=== PATIENT | male | born 1950 | race Caucasian/White ===

== ENCOUNTER 2022-09-24 07:34 | Observation (INO) | payer MEDICARE, MEDICAID, SELFPAY ==
[2022-09-24] VITALS (15 sets, daily range): BP systolic 106–182; BP diastolic 49–93; PULSE 65–76; RESP 16–20; TEMP 36.3–36.8; O2SAT 92–100; BMI 30.4; BMI 31.9; BMI 31.4
--- NOTE | 2022-09-24 07:30 | ECG_ITS ---
APPROVED REPORT Exam: Resting ECG HR:83 bpm ECG Measurements Heart Rate 83 AXES WV 151 P 45 QRSd 99 QRS 19 QT 338 T 55 QTc 377 Conclusion SINUS RHYTHM LOW QRS VOLTAGE IN PRECORDIAL LEADS [QRS DEFLECTION < 1.0 mV IN CHEST LEADS] NONSPECIFIC T-WAVE ABNORMALITY BORDERLINE ECG UNCONFIRMED REPORT Electronically signed by : El Ramirez MD 09/25/2022 03:04:14
--- NOTE | 2022-09-24 07:38 | XR_ITS ---
FINAL REPORT CLINICAL HISTORY: CHEST PAIN FINDINGS: A portable view of the chest is obtained. Cardiac and mediastinal silhouettes are normal. The lung volumes are low. There are linear opacities at both lung bases which is likely atelectasis. There is no pleural effusion or pneumothorax. IMPRESSION: Bibasilar linear opacities is likely atelectasis. Reviewed, Interpreted and Dictated by Amrita Pinto MD Transcribed by Talia Sandy Authenticated and [facility]
[2022-09-24 07:46] LABS: Basophils # 0.7 K/mm3 (0-0.2); Basophils % 3.4 % (0.1-2.0); Eosinophils # 0.5 K/mm3 (0.0-0.4); Eosinophils % 2.6 % (0.1-12.0); Hematocrit 46.6 % (42.0-52.0); Hemoglobin 15.2 g/dL (14.1-18.0); Lymphocytes # 2.3 K/mm3 (0.7-4.5); Lymphocytes % 10.7 % (10-50); Mean Corpuscular HGB Conc 32.7 g/dL (31.8-35.4); Mean Corpuscular Hemoglobin 27.9 pg (27.0-31.2); Mean Corpuscular Volume 85.3 fl (80-94); Mean Platelet Volume 12.1 fl (7.4-10.4); Monocytes # 0.8 K/mm3 (0.1-1.0); Monocytes % 3.9 % (1.7-9.3); Neutrophils # 17.4 K/mm3 (1.8-7.8); Neutrophils % 82.8 % (37.0-80.0); Platelet Count 112 K/mm3 (142-424); Red Blood Count 5.46 M/mm3 (4.60-6.20); Red Cell Distribution Width 18.1 % (11.5-17.5)
[2022-09-24 07:51] LABS: MANUAL DIFFERENTIAL MANUAL DIFFERENTIAL (MANUAL DIFF)
[2022-09-24 07:52] LABS: Anion Gap 11.3 mEq/L (5-15); Blood Urea Nitrogen 27 mg/dl (9-20); Calcium 8.6 mg/dl (8.4-10.2); Carbon Dioxide 29 mmol/L (22.0-30.0); Chloride 100 mmol/L (98-107); Creatinine Clearance Estimated 76 mL/min (50-200); Estimated Glomerular Filt Rate 60 ml/min (>60); GFR (African American) 72 ML/MIN (>60); Glucose 111 mg/dl (74-100); Potassium 4.3 mmoL/L (3.5-5.1); Sodium 136 mmol/L (136-145)
[2022-09-24 08:06] LABS: Lymphocytes % 17 % (10-50); Monocytes % 10 % (2-9); Neutrophils % 73 % (42-76); Platelet Estimate Slight Decrease; RBC Morphology Normal; Total Cells Counted 100
[2022-09-24 08:11] LABS: Troponin I < 0.01 ng/ml (0.00-0.034)
--- NOTE | 2022-09-24 08:18 | CT_ITS ---
FINAL REPORT TECHNIQUE: Postcontrast axial images through the abdomen and pelvis were performed. This study was performed with techniques to keep radiation doses as low as reasonably achievable, (ALARA). Individualized dose reduction techniques using automated exposure control or adjustment of mA and/or kV according to the patient's size were employed. CLINICAL HISTORY: LUQ abdominal pain FINDINGS: Abdomen: Ground-glass opacities in the lung bases are nonspecific. Mild edema cannot be excluded. The liver has a slightly nodular contour. Cirrhosis cannot be excluded. The gallbladder is present. The spleen is very large measuring 29 cm in axial dimensions and 27 cm in long axis. There are prominent venous collaterals surrounding the spleen. The portal vein is patent. There is a right adrenal nodule measuring 17 mm. The left adrenal gland is unremarkable. The adrenals are normal. The pancreas is unremarkable. There is a lower pole right renal cyst. The left kidney is unremarkable. The aorta is normal in caliber. No free fluid or adenopathy is identified. There is wall thickening of the hepatic flexure that may be due to incomplete distension. Mass is felt less likely. There is diverticulosis without diverticulitis. Pelvis: The appendix is normal. The urinary bladder is unremarkable. No free fluid, free air, abscess or adenopathy is identified. There is increased density in the bones diffusely but worse in the pelvis and proximal femurs. Malignancy cannot be excluded. IMPRESSION: Massive splenomegaly greater than expected for cirrhosis. Lymphoma cannot be excluded. Nodular liver suggesting cirrhosis. Right adrenal nodule, nonspecific. Wall thickening of the hepatic flexure favoring non-distention. Correlate with recent colonoscopy. Diffuse increased density of the bones. Malignancy cannot be excluded. Reviewed, Interpreted and Dictated by Amrita Pinto MD Transcribed by Salo Gill Authenticated and [facility]
[2022-09-24 08:31] LABS: Coronavirus 19, PCR Not Detected (NotDetected); Influenza A, PCR Not Detected (NotDetected); Influenza B, PCR Not Detected (NotDetected)
[2022-09-24 08:32] LABS: Lipase 391 U/L (23-300)
[2022-09-24 08:33] LABS: Alanine Aminotransferase 20 U/L (12-78); Albumin Level 4.6 g/dl (3.5-5.0); Alkaline Phosphatase 105 U/L (38-126); Aspartate Amino Transferase 46 U/L (17-59); Bilirubin,Direct 0.1 mg/dl (0.0-0.4); Bilirubin,Indirect 1.4 mg/dL (0.0-0.9); Bilirubin,Total 1.5 mg/dl (0.2-1.3); Bilirubin,Unconjugated 1.4 mg/dL (0.0-1.1); Total Protein,Serum 7.4 g/dl (6.3-8.2)
[2022-09-24 08:43] LABS: Lactic Acid 1.3 mmol/L (0.7-2.1)
--- NOTE | 2022-09-24 08:43 | PC.NURSE ---
pt returned from radiology.
--- NOTE | 2022-09-24 09:10 | HMH.EDGENADL ---
Discharge Plan Disposition Chief Complaint: Chest Pain Prescriptions Prescriptions: No Action gabapentin 800 mg Tablet 800 mg PO QID Referrals Follow up/Referrals: Provider,MD Zack [Primary Care Provider] - See instructions Clinical Impressions Clinical Impression: Acute pancreatitis Discharge ED Provider: Ehsan Corona General Adult HPI General Chief complaint: Chest Pain Stated complaint: CHEST PAIN Time Seen by Provider: 09/24/22 08:00 Mode of Arrival: Ambulatory Source of Information: Patient Limitations: No Limitations Description of Symptoms (Recalled from ER Triage Doc. by RN): pt reports chest pain for about a week that has been intermittent, reports upper abdominal pain and shortness of breath as well, denies any heart problems, denies cough, denies fever, states the pain is on the left side of his chest and explains it as a sharp shooting pain History of Present Illness HPI narrative: 72-year-old male presents with upper abdomen and chest pain for a few days. He says the pain is dull worse with deep breathing nonradiating. No nausea vomiting diarrhea fevers. No chills. No pain worse with eating. No dysuria or hematuria no bleeding per rectum or vomiting blood. He does not have history of abdominal pain. Related Data Home Medications Medication Instructions Recorded Confirmed gabapentin 800 mg tablet 800 mg PO QID pain 09/24/22 09/24/22 Allergies Allergy/AdvReac Type Severity Reaction Status Date / Time No Known Allergies Allergy Verified 09/24/22 07:37 [facility] Disclaimer: The information contained in this section may have been updated after the patient was seen, as this information can be updated by other users. Medical History (Updated 09/24/22 @ 10:29 by Ehsan Corona MD) History of back pain Social History Smoking Status: Never smoker alcohol intake: former current occupational status: unemployed Travel in the last 8 weeks: Inside the [place] ROS Obtained: Yes All systems reviewed & no additional complaints except as documented Constitutional Constitutional: Denies fatigue Eyes Eyes: Denies dry eyes ENT Ears, Nose, Mouth, and Throat: Denies dizziness Cardiovascular Cardiovascular: Denies dyspnea Respiratory Respiratory: Denies dyspnea Gastrointestinal Gastrointestingal: Denies constipation Genitourinary Male Genitourinary: Denies flank pain Musculoskeletal Musculoskeletal: Denies joint swelling Integumentary/Breasts Skin/Breast: Denies rash Neurologic Neurologic: Denies dizziness Endocrine Endocrine: Denies fatigue Hematologic/Lymphatic Henatologic/Lymphatic: Denies easy bleeding Allergic/Immunologic Allergic/Immunologic: Denies urticaria Physical Exam General General appearance: alert and in no apparent distress Eye Eye exam: Present PERRL and EOMI ENT ENT exam: Present normal exam and normal oropharynx Neck Neck exam: Present normal inspection Chest Chest inspection: Present symmetric chest wall rise Respiratory Respiratory exam: Present normal lung sounds bilaterally; Absent respiratory distress Cardiovascular Cardiovascular exam: Present regular rate and normal rhythm Abdominal Exam Abdominal exam: Present soft and tenderness (Tenderness to left upper and right upper abdomen); Absent distention, guarding, rebound, Davidson's sign or tenderness at McBurney's Point Rectal Exam Rectal exam: Present deferred Back Exam Back exam: Present normal inspection Neurological Exam Neurological exam: Present alert and oriented X3 Psychiatric Psychiatric exam: Present normal affect and normal mood Skin Skin exam: Present warm, dry and intact Lymphatic Lymphatic Findings: no adenopathy Medical Decision Making Medical Records Medical records reviewed: Yes I reviewed the patient's medical records. Valente Inquiry Pt receiving controlled substance: No Valente was queried for this patient: No Vital Signs: 09/24/22 07:36 09/24/22
--- NOTE | 2022-09-24 09:12 | PC.NURSE ---
Rounded on pt. resting in bed. call light within reach. bed in lowest position. no questions or concerns voiced at this time.
--- NOTE | 2022-09-24 09:12 | PC.NURSE ---
pt aware of need for ua.
--- NOTE | 2022-09-24 09:46 | PC.NURSE ---
pt ambulated to bathroom, giving urine sample
--- NOTE | 2022-09-24 09:54 | PC.NURSE ---
URINE COLLECTED AND SENT TO LAB
[2022-09-24 09:57] LABS: Microscopic, Urine URINE MICROSCOPIC (MICROSCOPIC)
[2022-09-24 09:59] LABS: Appearance,Urine CLEAR (Clear); Bilirubin,Urine Negative (Negative); Blood, Urine Negative (Negative); Color,Urine YELLOW (Yellow); Glucose,Urine (UA) Negative (Negative); Ketones,Urine Negative (Negative); Leukocyte Esterase,Urine Negative (Negative); Nitrate,Urine Negative (Negative); Protein,Urine Negative (Negative)
[2022-09-24 10:11] LABS: Bacteria,Urine Trace /lpf; RBC,Urine Occasional #/hpf (0-3)
--- NOTE | 2022-09-24 10:13 | PC.NURSE ---
er at bedside
--- NOTE | 2022-09-24 10:15 | US_ITS ---
FINAL REPORT CLINICAL HISTORY: RUQ pain FINDINGS: Ultrasound images of the right upper quadrant were obtained. The pancreas is obscured. The liver parenchyma is normal in echogenicity. The gallbladder is well visualized and the wall appears normal. There are no gallstones. The common duct is normal. There are several right renal cysts. IMPRESSION: Right renal cysts. Reviewed, Interpreted and Dictated by Amrita Pinto MD Transcribed by Salo Gill Authenticated and [facility]
--- NOTE | 2022-09-24 10:24 | PC.NURSE ---
calling dr reynoso for possible admission
--- NOTE | 2022-09-24 10:27 | PC.NURSE ---
rad notified of u/s order, last PO intake was 0700 this morning.
--- NOTE | 2022-09-24 10:28 | PC.NURSE ---
notified care management of admission, spoke with randi
--- NOTE | 2022-09-24 10:41 | PC.NURSE ---
updated pt on care. no questions or concerns voiced. call light within reach. bed in lowest position.
[2022-09-24 10:43] LABS: Activated Partial Thrombo Time 35.5 seconds (22.8-30.6); INR 1.14 (0.9-1.1); Prothrombin Time 12.2 seconds (10.1-12.5)
--- NOTE | 2022-09-24 10:49 | HMH.PHAINT1 ---
Pharmacy Intervention Comments: MEDICATION RECONCILIATION COMPLETED ON PATIENT USING EXTERNAL FILL HISTORY FROM PHARMACY. -JUAN FRANCISCO MERA, ARIELD
--- NOTE | 2022-09-24 11:00 | PC.NURSE ---
per charge nurse on second floor, pt boarding in ER at this until bed is available.
[2022-09-24 11:08] LABS: Troponin I < 0.01 ng/ml (0.00-0.034)
--- NOTE | 2022-09-24 13:01 | PC.NURSE ---
spoke with night warehouse manager, states waiting on room to be cleaned. updated pt
--- NOTE | 2022-09-24 13:37 | PC.NURSE ---
checked on pt no complaints @ this time
[2022-09-24 14:34] LABS: Troponin I < 0.01 ng/ml (0.00-0.034)
--- NOTE | 2022-09-24 14:35 | PC.NURSE ---
household worker states pt now going to room 201, states room is being cleaned now
--- NOTE | 2022-09-24 14:38 | PC.NURSE ---
called report to Binta HUERTA
--- NOTE | 2022-09-24 15:00 | PC.NURSE ---
arrived by w/c to room from ED
[2022-09-24 16:30] LABS: Uric Acid 7.6 mg/dl (3.5-8.5)
--- NOTE | 2022-09-24 16:34 | EXP.HP ---
History of Present Illness *Admission Date: 09/24/22 *Reason for visit:: abdominal pain *History of present illness: Mr. Mejía is a 72-year-old male with no significant past medical history. Does not go to a doctor regularly and has not seen a doctor in years. He presented to the ER because of progressive upper abdominal/lower chest pain for the past several days. On further questioning however he reports this pain and discomfort has been going on for about the past 2 weeks with increased swelling and discomfort in his abdomen over the past 4 to 6 weeks. Pain is dull, worse with a deep breath. Denies any nausea, vomiting, diarrhea. No fevers or chills. Pain worse with eating. Denies any dysuria or hematuria. Does not recall any trauma to his abdomen. No known sick contacts. Work-up in the ER with CT of the abdomen showing marked splenomegaly and marginally elevated lipase at 390. Additionally found to have leukocytosis of 21,000, and thrombocytopenia. Medicine consulted for admission and further work-up Initial concern for pancreatitis on labs. However after reviewing imaging, spleen is significantly elevated measuring approximately 26 cm x 16 cm and filling the majority of his left hemiabdomen. Additionally noted to have some cirrhosis on imaging of his abdomen. Patient was able to eat since arriving to the floor. Tolerating clear liquid diet without any difficulty or nausea. Family at bedside, states that they have noticed some increased swelling in his abdomen over the past few weeks. Patient denies drinking, does not smoke. No previous surgeries to his abdomen. [facility] Disclaimer: The information contained in this section may have been updated after the patient was seen, as this information can be updated by other users. Medical History History of back pain Family History Family history of myocardial infarction Mother Social History Smoking Status: Never smoker alcohol intake: former current occupational status: unemployed Travel in the last 8 weeks: Inside the [place] Review of Systems Review of Systems Review of systems (narrative): 14 point review of systems performed, pertinent positives and negatives as per HPI ENT Ears, Nose, Mouth, and Throat: Denies dizziness *Neurologic Neurologic: Denies dizziness Meds Home Medications and Allergies Home Medications Medication Instructions Recorded Confirmed Type gabapentin 800 mg tablet 800 mg PO QID pain 09/24/22 09/24/22 History hydrocodone 7.5 mg-acetaminophen 1 tab PO TIDP PRN Moderate Pain 09/24/22 09/24/22 History 325 mg tablet (Scale Score 5-6) New Prescriptions to Start Prescriptions: Allergies Allergy/AdvReac Type Severity Reaction Status Date / Time No Known Allergies Allergy Verified 09/24/22 07:37 Exam Data for Last 24 hours Vital signs and Labs for Last 24 Hours: Temp Pulse Resp BP Pulse Ox 97.7 F 72 16 155/80 H 100 09/24/22 15:07 09/24/22 15:07 09/24/22 15:07 09/24/22 15:07 09/24/22 15:30 Laboratory Results - last 24 hr 09/24/22 07:39: WBC 21.0 H*, RBC 5.46, Hgb 15.2, Hct 46.6, MCV 85.3, MCH 27.9, MCHC 32.7, RDW 18.1 H, Plt Count 112 L, MPV 12.1 H, Neut % (Auto) 82.8 H, Lymph % (Auto) 10.7, Mills % (Auto) 3.9, Eos % (Auto) 2.6, Baso % (Auto) 3.4 H, Neut # (Auto) 17.4 H, Lymph # (Auto) 2.3, Mills # (Auto) 0.8, Eos # (Auto) 0.5 H, Baso # (Auto) 0.7 H, Total Counted 100, Neutrophils % (Manual) 73, Lymphocytes % (Manual) 17, Monocytes % (Manual) 10 H, Platelet Estimate Slight decrease, RBC Morphology Normal 09/24/22 07:39: Sodium 136, Potassium 4.3, Chloride 100, Carbon Dioxide 29, Anion Gap 11.3, BUN 27 H, Creatinine 1.20, Estimated Creat Clear 76, Estimated GFR 60, Est GFR ( Amer) 72, Glucose 111 H, Calcium 8.6, Troponin I < 0.01 09/24/22 07:3
--- NOTE | 2022-09-25 03:21 | PC.NURSE ---
pt. aox4, up ad tayla, 20g LAC sl. Pt. not on blood thinners because of his thrombocytopenia. Awaiting a transfer to , [facility] if a bed becomes available.
[2022-09-25 04:00] VITALS: BP 112/49; PULSE 63; RESP 18; TEMP 36.4; O2SAT 98; BMI 30.8
[2022-09-25 07:14] LABS: Basophils # 0.3 K/mm3 (0-0.2); Eosinophils # 0.6 K/mm3 (0.0-0.4); Eosinophils % 3.4 % (0.1-12.0); Hematocrit 42.1 % (42.0-52.0); Lymphocytes # 1.4 K/mm3 (0.7-4.5); Lymphocytes % 8.5 % (10-50); Mean Corpuscular HGB Conc 31.9 g/dL (31.8-35.4); Mean Corpuscular Hemoglobin 27.7 pg (27.0-31.2); Mean Corpuscular Volume 86.9 fl (80-94); Mean Platelet Volume 11.7 fl (7.4-10.4); Monocytes # 0.8 K/mm3 (0.1-1.0); Monocytes % 4.9 % (1.7-9.3); Neutrophils # 13.3 K/mm3 (1.8-7.8); Neutrophils % 81.2 % (37.0-80.0); Platelet Count 105 K/mm3 (142-424); Red Blood Count 4.85 M/mm3 (4.60-6.20); Red Cell Distribution Width 18.2 % (11.5-17.5); White Blood Count 16.4 K/mm3 (4.8-10.8)
[2022-09-25 07:15] LABS: MANUAL DIFFERENTIAL MANUAL DIFFERENTIAL (MANUAL DIFF)
[2022-09-25 07:16] LABS: Hemoglobin 13.4 g/dL (14.1-18.0)
[2022-09-25 07:21] VITALS: BP 143/75; PULSE 68; RESP 19; TEMP 36.4; O2SAT 97
[2022-09-25 07:24] LABS: Alanine Aminotransferase 18 U/L (12-78); Albumin Level 3.9 g/dl (3.5-5.0); Albumin/Globulin Ratio 1.6 (1.1-1.8); Alkaline Phosphatase 85 U/L (38-126); Aspartate Amino Transferase 43 U/L (17-59); Bilirubin,Total 1.3 mg/dl (0.2-1.3); Blood Urea Nitrogen 21 mg/dl (9-20); Calcium 8.2 mg/dl (8.4-10.2); Carbon Dioxide 29 mmol/L (22.0-30.0); Chloride 101 mmol/L (98-107); Creatinine Clearance Estimated 80 mL/min (50-200); Estimated Glomerular Filt Rate 66 ml/min (>60); GFR (African American) 80 ML/MIN (>60); Globulin 2.4 g/dL (1.3-3.2); Glucose 93 mg/dl (74-100); Magnesium 2.3 mg/dl (1.6-2.3); Sodium 135 mmol/L (136-145); Total Protein,Serum 6.3 g/dl (6.3-8.2)
[2022-09-25 07:27] LABS: Anion Gap 9.7 mEq/L (5-15); Potassium 4.7 mmoL/L (3.5-5.1)
[2022-09-25 07:46] LABS: Hypochromasia 1+; Lymphocytes % 9 % (10-50); Macrocytosis 1+; Monocytes % 4 % (2-9); Neutrophils % 87 % (42-76); Total Cells Counted 100
[2022-09-25 07:47] LABS: Platelet Estimate Slight Decrease
--- NOTE | 2022-09-25 10:42 | EXP.ACUTE.PN ---
Subjective *Date: 09/25/22 *Time: 14:24 Interval history: Patient states his belly pain is feeling little bit better today. Tolerating full liquid diet without difficulty. No nausea, vomiting, chest pain, shortness of breath. Hemodynamically stable. Slight improvement in white cell count today. Medical Exam Vital signs and Labs for Last 24 Hours: Vital Signs Temp Pulse Pulse Resp BP BP Pulse Ox 09/25/22 07:21 97.5 F L 68 19 143/75 H 97 09/25/22 04:00 97.6 F 63 18 112/49 L 98 09/24/22 23:55 98.0 F 65 16 106/49 L 95 09/24/22 20:00 95 09/24/22 20:00 98.2 F 69 18 129/59 L 92 L 09/24/22 15:30 100 09/24/22 15:07 97.7 F 72 16 155/80 H 100 09/24/22 14:30 68 140/71 96 09/24/22 14:39 98.3 F 67 18 140/71 09/24/22 14:19 68 139/69 94 L 09/24/22 11:00 73 142/84 H 94 L Intake and Output 09/24/22 09/25/22 09/25/22 23:59 07:59 15:59 Intake Total 480 / 480 0 / 0 Output Total 0 / 0 0 / 0 0 / 0 Balance 480 / 480 0 / 0 0 / 0 Intake: Intake, Oral Amount 480 / 480 0 / 0 Output: Output, Urine Amount 0 / 0 0 / 0 0 / 0 Other: Number of Unmeasured Voids 1 1 1 Weight 92.261 kg Patient Weight 09/25/22 23:59 Weight 92.261 kg Laboratory Results - last 24 hr 09/24/22 07:39: PT 12.2, INR 1.14 H, APTT 35.5 H 09/24/22 07:39: Uric Acid 7.6 09/24/22 10:35: Troponin I < 0.01 09/24/22 13:50: Troponin I < 0.01 09/25/22 06:52: WBC 16.4 H, RBC 4.85, Hgb 13.4 L D, Hct 42.1, MCV 86.9, MCH 27.7, MCHC 31.9, RDW 18.2 H, Plt Count 105 L, MPV 11.7 H, Neut % (Auto) 81.2 H, Lymph % (Auto) 8.5 L, [place] % (Auto) 4.9, Eos % (Auto) 3.4, Baso % (Auto) 2.0, Neut # (Auto) 13.3 H, Lymph # (Auto) 1.4, [place] # (Auto) 0.8, Eos # (Auto) 0.6 H, Baso # (Auto) 0.3 H, Total Counted 100, Neutrophils % (Manual) 87 H, Lymphocytes % (Manual) 9 L, Monocytes % (Manual) 4, Platelet Estimate Slight decrease, RBC Morphology Not Reportable, Hypochromasia 1+, Macrocytosis 1+ 09/25/22 06:52: Sodium 135 L, Potassium 4.7, Chloride 101, Carbon Dioxide 29, Anion Gap 9.7, BUN 21 H, Creatinine 1.10, Estimated Creat Clear 80, Estimated GFR 66, Est GFR ( Amer) 80, Glucose 93, Calcium 8.2 L, Magnesium 2.3, Total Bilirubin 1.3, AST 43, ALT 18, Alkaline Phosphatase 85, Total Protein 6.3, Albumin 3.9 D, Globulin 2.4, Albumin/Globulin Ratio 1.6 I & O for Labs for Last 24 Hours: Intake & Output 09/22/22 09/23/22 09/24/22 09/25/22 23:59 23:59 23:59 23:59 Intake Total 480 / 480 0 / 0 Output Total 0 / 0 0 / 0 Balance 480 / 480 0 / 0 Weight 93.95 kg 92.261 kg Microbiology Reports for the Last 24 Hours: Microbiology 09/24/22 08:05 Blood Blood Culture - Preliminary Constitutional: Present no acute distress and obese Head: Present atraumatic and normocephalic ENT: Present normal exam Neck: Present normal inspection Respiratory: Present normal respiratory effort; Absent accessory muscle use, rhonchi, wheezes or crackles Cardiac: Present Reg Rate and Rhythm GI: Present soft, distention, tenderness and normal bowel sounds Comments:: palpable spleen with leading edge 3 fingers proximal to ASIS Extremities: Present normal inspection and full ROM Skin: Present intact; Absent erythema Neuro: Present Grossly Intact, alert, awake, oriented x 3 and moves all extremities Assessment and Plan *Assessment and plan (1) Splenomegaly: Status: Acute Category: Medical Code(s): R16.1 - Splenomegaly, not elsewhere classified (2) Acute pancreatitis: Status: Acute Category: Medical Code(s): K85.90 - Acute pancreatitis without necrosis or infection, unspecified (3) Thrombocytopenia: Status: Acute Category: Medical Code(s): D69.6 - Thrombocytopenia, unspecified (4) Leukocytosis: Status: Acute Category: Medical Code(s): D72.829 - Elevated white blood cell count, unspecified (5) Class 1 obesity: Stat
[2022-09-25 11:12] LABS: Alpha-1-Antitrypsin 194 mg/dL (101-187)
[2022-09-25 12:53] VITALS: BMI 30.8
[2022-09-25 14:57] VITALS: BP 126/66; PULSE 69; RESP 18; TEMP 36.6; O2SAT 94
--- NOTE | 2022-09-25 17:06 | PC.NURSE ---
Pt has been up to chair this shift. Has c/o abdominal discomfort. Medicated per aug. Abdomen is large and distended. Waiting on bed transfer. VSS at this time. Pt has voided multiple times this shift. States he has had 2 BMS and that they were normal. Pt ambulates t/o room without difficulty. Call light within reach.
[2022-09-25 20:00] VITALS: BP 109/44; PULSE 67; RESP 18; TEMP 36.5; O2SAT 92; O2SAT 98
--- NOTE | 2022-09-26 03:51 | PC.NURSE ---
Abdomen is large and distended. Waiting on bed transfer. VSS at this time. Pt ambulates t/o room without difficulty. Call light within reach. No changes noted.
[2022-09-26 04:00] VITALS: BP 115/54; PULSE 66; RESP 16; TEMP 36.6; O2SAT 96; BMI 30.5
[2022-09-26 06:12] LABS: Cytomegalovirus (CMV) Ab, IgM <30.0 AU/mL (0.0-29.9)
[2022-09-26 07:32] LABS: Basophils # 0.5 K/mm3 (0-0.2); Eosinophils # 0.5 K/mm3 (0.0-0.4); Eosinophils % 3.1 % (0.1-12.0); Hematocrit 44.1 % (42.0-52.0); Hemoglobin 13.9 g/dL (14.1-18.0); Lymphocytes # 1.2 K/mm3 (0.7-4.5); Mean Corpuscular HGB Conc 31.4 g/dL (31.8-35.4); Mean Corpuscular Hemoglobin 27.1 pg (27.0-31.2); Mean Corpuscular Volume 86.3 fl (80-94); Mean Platelet Volume 11.2 fl (7.4-10.4); Monocytes # 0.8 K/mm3 (0.1-1.0); Monocytes % 4.5 % (1.7-9.3); Neutrophils # 14.6 K/mm3 (1.8-7.8); Neutrophils % 82.5 % (37.0-80.0); Platelet Count 110 K/mm3 (142-424); Red Blood Count 5.11 M/mm3 (4.60-6.20); Red Cell Distribution Width 18.2 % (11.5-17.5); White Blood Count 17.7 K/mm3 (4.8-10.8)
[2022-09-26 07:35] LABS: MANUAL DIFFERENTIAL MANUAL DIFFERENTIAL (MANUAL DIFF)
[2022-09-26 07:40] LABS: Alanine Aminotransferase 20 U/L (12-78); Albumin Level 3.9 g/dl (3.5-5.0); Albumin/Globulin Ratio 1.5 (1.1-1.8); Alkaline Phosphatase 94 U/L (38-126); Anion Gap 7.3 mEq/L (5-15); Aspartate Amino Transferase 45 U/L (17-59); Bilirubin,Total 1.5 mg/dl (0.2-1.3); Blood Urea Nitrogen 18 mg/dl (9-20); Carbon Dioxide 29 mmol/L (22.0-30.0); Chloride 102 mmol/L (98-107); Creatinine Clearance Estimated 80 mL/min (50-200); Estimated Glomerular Filt Rate 66 ml/min (>60); GFR (African American) 80 ML/MIN (>60); Globulin 2.6 g/dL (1.3-3.2); Glucose 94 mg/dl (74-100); Potassium 4.3 mmoL/L (3.5-5.1); Sodium 134 mmol/L (136-145); Total Protein,Serum 6.5 g/dl (6.3-8.2)
[2022-09-26 08:00] VITALS: BP 135/69; PULSE 70; RESP 16; TEMP 37; O2SAT 95
[2022-09-26 08:00] LABS: Lymphocytes % 11 % (10-50); Monocytes % 4 % (2-9); Neutrophils % 85 % (42-76); Total Cells Counted 100
[2022-09-26 08:01] LABS: Platelet Estimate Slight Decrease; RBC Morphology Normal
--- NOTE | 2022-09-26 09:25 | PC.NURSE ---
notified dietary that patient is requesting a breakfast tray
--- NOTE | 2022-09-26 12:18 | EXP.DC.SUM ---
General Admission date:: 09/24/22 Discharge date: 09/26/22 HPI HPI HPI: Mr. Mejía is a 72-year-old male with no significant past medical history. Does not go to a doctor regularly and has not seen a doctor in years. He presented to the ER because of progressive upper abdominal/lower chest pain for the past several days. On further questioning however he reports this pain and discomfort has been going on for about the past 2 weeks with increased swelling and discomfort in his abdomen over the past 4 to 6 weeks. Pain is dull, worse with a deep breath. Denies any nausea, vomiting, diarrhea. No fevers or chills. Pain worse with eating. Denies any dysuria or hematuria. Does not recall any trauma to his abdomen. No known sick contacts. Work-up in the ER with CT of the abdomen showing marked splenomegaly and marginally elevated lipase at 390. Additionally found to have leukocytosis of 21,000, and thrombocytopenia. Medicine consulted for admission and further work-up Initial concern for pancreatitis on labs. However after reviewing imaging, spleen is significantly elevated measuring approximately 26 cm x 16 cm and filling the majority of his left hemiabdomen. Additionally noted to have some cirrhosis on imaging of his abdomen. Patient was able to eat since arriving to the floor. Tolerating clear liquid diet without any difficulty or nausea. Family at bedside, states that they have noticed some increased swelling in his abdomen over the past few weeks. Patient denies drinking, does not smoke. No previous surgeries to his abdomen. Hospital Course Hospital Course Hospital Course: 72-year-old male with no significant past medical history who presents with splenomegaly, mild pancreatitis, and leukocytosis.? Differential diagnosis is broad at this time.? Concern for splenomegaly.? Etiologies include infectious such as viral (hepatitis, EBV, CMV), Neoplastic including lymphoma or leukemia, congestive from cirrhosis however cirrhosis appears compensated and splenomegaly is abnormally large for cirrhosis.? Portal hypertension, no comment of occlusion or hypertension on abdominal ultrasound.? Most concerning in the setting of leukocytosis, thrombocytopenia, splenomegaly is a neoplastic process however.? Problems addressed as follows: Splenomegaly Cirrhosis -Patient has not seen a doctor in years. No known history of cirrhosis. No known history of splenomegaly. Worsening abdominal distention and discomfort over several weeks. Found to have cirrhosis on CT of abdomen however is compensated based on labs. CT additionally however noted to have extremely enlarged spleen. Measuring 26 cm x 16 cm by 10 cm. Increased collateral flow to the spleen, also noted to have increased bone density. CT remarks concerning for malignancy. Peripheral smear ordered, still pending at time of discharge. CMV negative. EBV positive IgG. White cell count remained elevated in light of empiric antibiotics during hospitalization. No indication to continue antibiotics at discharge as patient had no other signs of infection other than leukocytosis. Neutrophil predominant leukocytosis in setting of spleen there again concerning for malignancy. Initially discussed case with MDs to attempt transfer. Unable to transfer during hospitalization. As patient remained hemodynamically stable, tolerating p.o. intake, on room air, no worsening signs of infection, determined to be stable for discharge with close follow-up. Scheduled to follow-up with discharge clinic interval and in 5 days on Sunday 10/01. Also scheduled to establish with new PCP at [facility], Dr. Collier in 2 weeks. Patient needs further outpatient work-up for his new diagnoses. Hepatitis panel obtained during admission as well, still pending at discharge. Pancreatitis -Lipase marginally elevated, Had resolution of abdominal pain. Abdominal discomfort felt to be secondary to Spleen. No clinical signs of panc
[2022-09-26 14:35] LABS: EBV Ab VCA, IgG >600.0 U/mL (0.0-17.9); EBV Ab VCA, IgM <36.0 U/mL (0.0-35.9)
[2022-09-26 16:22] LABS: Peripheral Smear Review Scanned Result
--- NOTE | 2022-09-27 14:47 | CARE MANAGER ---
Spoke with patient for post-discharge phone interview, no issues noted.
[2022-10-02 05:13] LABS: Hep A Ab, IgM NEGATIVE; Hepatitis B Core Antibody IgM NEGATIVE; Hepatitis B Surface Antigen NEGATIVE; Hepatitis C Antibody NON REACTIVE
== END 2022-09-26 16:55 | disposition home or self-care (01) ==
LOC: ER 08:51 → 2ND 14:43
PROVIDERS: Admitting Provider Internal Medicine Adolescent Medicine; Emergency Provider Emergency Medicine; Visit Provider Internal Medicine Adolescent Medicine
DX: R16.1 Splenomegaly, not elsewhere classified (principal); K85.90 Acute pancreatitis without necrosis or infection, unspecified; D69.6 Thrombocytopenia, unspecified; Z79.899 Other long term (current) drug therapy; R10.10 Upper abdominal pain, unspecified; Z20.822 Contact with and (suspected) exposure to COVID-19
CPT/HCPCS: G0378; 36415; 71045; 74177; 76705; 80048; 80053; 80074; 80076; 81001; 82103; 83605; 83690; 83735; 84484; 84550; 85007; 85025; 85610; 85730; 86645; 86664; 86665; 87040; 87077; 87186; 93005; 99285; C9803; J0696; Q9967; U0003; U0005

== ENCOUNTER 2023-10-15 13:19 | Emergency (ER) | payer MEDICARE, MEDICAID, SELFPAY ==
[2023-10-15] VITALS (14 sets, daily range): BP systolic 116–148; BP diastolic 61–83; PULSE 77–94; RESP 16–24; TEMP 36.6–36.7; O2SAT 93–95; BMI 30.4
--- NOTE | 2023-10-15 13:38 | ECG_ITS ---
APPROVED REPORT Exam: Resting ECG HR:89 bpm ECG Measurements Heart Rate 89 AXES NH 156 P 37 QRSd 96 QRS 4 QT 350 T 42 QTc 396 Conclusion SINUS RHYTHM Electronically signed by : MERY SALCIDO, 10/15/2023 15:45:01
--- NOTE | 2023-10-15 13:42 | XR_ITS ---
FINAL REPORT TECHNIQUE: Chest PA & Lateral CLINICAL HISTORY: chest pain COMPARISON: 09/24/2022 FINDINGS: 2 views of the chest were performed. The heart size is normal. The mediastinum is within normal limits. There is no acute cardiopulmonary process. There is linear scarring at the left lung base. There are no pleural effusions. There is no pneumothorax. The bony thorax appears intact. IMPRESSION: No acute cardiopulmonary process. Reviewed, Interpreted and Dictated by Leo Lora MD Transcribed by Fariba Hugo Authenticated and [facility]
[2023-10-15 13:52] LABS: Basophils # 1.2 K/mm3 (0-0.2); Basophils % 4.9 % (0.1-2.0); Eosinophils # 0.9 K/mm3 (0.0-0.4); Eosinophils % 3.7 % (0.1-12.0); Hematocrit 39.6 % (42.0-52.0); Hemoglobin 12.4 g/dL (14.1-18.0); Lymphocytes # 3.6 K/mm3 (0.7-4.5); Mean Corpuscular HGB Conc 31.2 g/dL (31.8-35.4); Mean Corpuscular Volume 86.6 fl (80-94); Monocytes % 4.3 % (1.7-9.3); Neutrophils # 18.6 K/mm3 (1.8-7.8); Neutrophils % 77.1 % (37.0-80.0); Red Blood Count 4.58 M/mm3 (4.60-6.20); Red Cell Distribution Width 19.4 % (11.5-17.5); White Blood Count 24.1 K/mm3 (4.8-10.8)
[2023-10-15 13:53] LABS: Chloride 106 mmol/L (98-107); Sodium 137 mmol/L (136-145)
[2023-10-15 13:54] LABS: Potassium 4.2 mmoL/L (3.5-5.1)
[2023-10-15 13:56] LABS: Alanine Aminotransferase 20 U/L (12-78); Albumin Level 3.5 g/dl (3.5-5.0); Albumin/Globulin Ratio 1.1 (1.1-1.8); Alkaline Phosphatase 104 U/L (38-126); Anion Gap 8.2 mEq/L (5-15); Aspartate Amino Transferase 51 U/L (17-59); Bilirubin,Total 1.8 mg/dl (0.2-1.3); Blood Urea Nitrogen 20 mg/dl (9-20); Carbon Dioxide 27 mmol/L (22.0-30.0); Creatinine Clearance Estimated 54 mL/min (50-200); Estimated Glomerular Filt Rate 43 ml/min (>60); GFR (African American) 52 ML/MIN (>60); Globulin 3.1 g/dL (1.3-3.2); Glucose 116 mg/dl (74-100); Total Protein,Serum 6.6 g/dl (6.3-8.2)
--- NOTE | 2023-10-15 13:57 | ED_ITS ---
Discharge Plan Disposition Patient Disposition: Still a Patient Condition: Fair Prescriptions Prescriptions: No Action gabapentin 800 mg Tablet 800 mg PO QID hydrocodone-acetaminophen 7.5-325 mg tablet 1 tab PO TIDP PRN (Reason: Moderate Pain (Scale Score 5-6)) Patient Comments: TAKE 1 TABLET BY MOUTH THREE TIMES DAILY NEEDED Referrals Follow up/Referrals: Provider,Referral, [Primary Care Provider] - See instructions Activity Restrictions/Add. 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 Please return with any new or worsening symptoms. Clinical Impressions Clinical Impression: Bilateral lower extremity edema Instructions Patient Instructions: DI for Edema Due to Venous Stasis Discharge ED Provider: Timur Sandoval HPI <Timur Sandoval MD - Last Filed: 10/15/23 15:24> General Chief Complaint: Chest Pain Stated Complaint: swelling in legs Time Seen by Provider: 10/15/23 13:26 Mode of Arrival: Ambulatory Source of Information: Patient Limitations: No Limitations Description of Symptoms (Recalled from ER Triage Doc. by RN): pt came in today with cc of BLE edema x3-4 days, CP, and SOA. pt states his noly medical hx is enlarged spleen, mesotheleoma, and chronic back pain. pt doesnt really see a doctor on regular basis and only takes hydrocodone and gabapentin. pt is from [place] and here visiting daughter that lives in [place] History of Present Illness HPI narrative: Is a 73-year-old male with history of splenomegaly secondary to myelodysplastic syndrome currently following with hematology at [facility] presenting with multiple complaints. Patient states that he has been intermittently short of breath over the past few weeks, for the past 2 or 3 days, concerned for bilateral lower extremity swelling, itching, warmth, redness. Has never had anything like this in the past. No history of cardiac disease or heart failure. Patient states he has not noticed anything that better or worse. Has not tried elevating them. No chills, nausea vomiting, chest pain, syncopal episodes, abdominal pain, vomiting, recent illness, or any other concerns. No history of DVT or PE. Other than myelodysplastic syndrome, no DVT or PE risk factors. Please note that above description of symptoms, in this electronic medical record under categorization of recalled from ER triage doctor by RN are reflective of an initial nursing assessment, however, is not reflective of my full history and physical exam that was personally taken and clarified. Consequentially, this preceding description of symptoms, which may include the patient's categorized chief complaint in the EMR, do not reflect my personal clinical impression, and the ultimate description of history of present illness and patient stated complaints should be deferred to this section of the note. Unless stated otherwise or congruent with this section of the note, additional signs, symptoms, or incongruence should be interpreted as inaccurate with my clinical impression. Related Data Home Medications Medication Instructions Recorded Confirmed gabapentin 800 mg tablet 800 mg PO QID pain 09/24/22 09/24/22 hydrocodone 7.5 mg-acetaminophen 1 tab PO TIDP PRN Moderate Pain 09/24/22 09/24/22 325 mg tablet (Scale Score 5-6) Allergies Allergy/AdvReac Type Severity Reaction Status Date / Time No Known Allergies Allergy Verified 09/24/22 07:37 PFS <Timur Sandoval MD - Last Filed: 10/15/23 15:24> [facility] Disclaimer: The information contained in this section may have been updated after the patient was seen, as this information can be updated by other users. Medical History History of back pain Family History Family history of myocardial infarction Mother Social History Smoking Status: Never smoker alcohol intake: former current occupational status: unemployed Travel in the last 8 weeks: Inside the [place] <Timur Sandoval MD - Last Filed: 10/15/23 15:24> ROS Obtained: Yes All systems reviewed & no additional complaints except as documented Physical Exam <Timur Sandoval MD - Last Filed: 10/15/23 15:24> General General appearance: alert Neck Neck exam: Present trachea midline Chest Chest inspection: Present normal inspection and symmetric chest wall rise Respiratory Respiratory exam: Present normal lung sounds bilaterally; Absent respiratory distress, wheezes, stridor, accessory muscle use or prolonged expiratory phase Cardiovascular Cardiovascular exam: Present regular rate and normal rhythm Extremities Exam Extremities exam: Present edema (Bilateral lower extremity 2+ pitting edema with associated erythema. Both sides are symmetric) Neurological Exam Neurological exam: Present alert, oriented X3 and CN II-XII intact Skin Skin exam: Present warm and dry; Absent cyanosis, diaphoresis or pallor HEART Score <Timur Sandoval MD - Last Filed: 10/15/23 15:24> HEART Score HEART Score assessment performed?: Yes HEART Score: 3 <Edmond Zimmer MD - Last Filed: 10/16/23 17:28> HEART Score HEART Score: 4 Procedures <Timur Sandoval MD - Last Filed: 10/15/23 15:24> Limited Ultrasound Indication:: Limited cardiac ultrasound Indication: Shortness of breath, leg swelling Identified cardiac views: -Cardiac parasternal long axis -Cardiac parasternal short axis Findings: -Cardiac activity present -Gross wall motion normal -Pericardial effusion absent -Right heart strain absent Impression: -From above Images were saved to permanent archive The study was technically adequate CPT: 59709 This study was performed by me, and I personally interpreted all images/videos. Based on my clinical judgement, these images were adequate and not necessitate further imaging. Views:: Limited DVT ultrasound Indication: Limited compression ultrasonography of the right lower extremity was performed to evaluate for non-compressibility of the deep veins in the patient. The ultrasound was performed with the following indications, as noted in the H&P: Right leg swelling, ornis of Identified structures: RIGHT or LEFT or BILATERAL common femoral vein, femoral vein, popliteal vein were examined. Findings: Lower extremity: Right CFV: Good compressibility Right FV: Good compressibility Right Popliteal vein: Good compressibility Impression: Normal right lower extremity ultrasound Images were saved to permanent archive The study was technically adequate CPT: 73575-00-GD 57987-29-PB 59133-66 (complete bilateral study) This study was performed by me, and I personally interpreted all images/videos. Based on my clinical judgement, these images were adequate and did not necessitate further imaging. Critical Care <Timur Sandoval MD - Last Filed: 10/15/23 15:24> Critical Care Time Critical Care Time: No Medical Decision Making <Timur Sandoval MD - Last Filed: 10/15/23 15:24> Medical Records Medical records reviewed: Yes I reviewed the patient's medical records. Valente Inquiry Pt receiving controlled substance: No Valente was queried for this patient: No Vital Signs Vital Signs: 10/15/23 13:20 10/15/23 13:34 10/15/23 13:40 Temperature 97.9 F Temperature Source Oral Pulse Rate 90 92 H Pulse Rate [Right Radial] 90 Respiratory Rate 20 18 Blood Pressure 116/64 Blood Pressure [Right Arm] 148/83 H Blood Pressure Mean [Right Arm] 104 02 Sat by Pulse Oximetry 95 94 L Oxygen Delivery Method Room Air 10/15/23 14:01 10/15/23 14:30 10/15/23 15:00 Temperature Temperature Source Pulse Rate 94 H 91 H 77 Pulse Rate [Right Radial] Respiratory Rate 18 16 21 Blood Pressure 134/73 135/71 120/67 Blood Pressure [Right Arm] Blood Pressure Mean [Right Arm] 02 Sat by Pulse Oximetry 94 L 93 L 93 L Oxygen Delivery Method Room Air Room Air 10/15/23 16:00 10/15/23 16:30 10/15/23 17:00 Temperature Temperature Source Pulse Rate 80 91 H 84 Pulse Rate [Right Radial] Respiratory Rate Blood Pressure 133/65 129/70 140/61 Blood Pressure [Right Arm] Blood Pressure Mean [Right Arm] 02 Sat by Pulse Oximetry 94 L 94 L 94 L Oxygen Delivery Method Room Air Room Air Room Air 10/15/23 17:30 10/15/23 18:01 10/15/23 18:30 Temperature Temperature Source Pulse Rate 89 86 86 Pulse Rate [Right Radial] Respiratory Rate 23 Blood Pressure 148/77 H 136/62 132/72 Blood Pressure [Right Arm] Blood Pressure Mean [Right Arm] 02 Sat by Pulse Oximetry 94 L 94 L 94 L Oxygen Delivery Method Room Air Room Air Room Air 10/15/23 19:00 10/15/23 19:16 Temperature 98.1 F Temperature Source Oral Pulse Rate 86 85 Pulse Rate [Right Radial] Respiratory Rate 22 24 Blood Pressure 138/71 138/71 Blood Pressure [Right Arm] Blood Pressure Mean [Right Arm] 02 Sat by Pulse Oximetry 93 L Oxygen Delivery Method Room Air Room Air Lab Data Labs: Lab Results 10/15/23 13:30: WBC 24.1 H*, RBC 4.58 L, Hgb 12.4 L, Hct 39.6 L, MCV 86.6, MCH 27.0, MCHC 31.2 L, RDW 19.4 H, Plt Count 38 L*, MPV 14.0 H, Neut % (Auto) 77.1, Lymph % (Auto) 15.0, Cascade % (Auto) 4.3, Eos % (Auto) 3.7, Baso % (Auto) 4.9 H, N eut # (Auto) 18.6 H, Lymph # (Auto) 3.6, Cascade # (Auto) 1.0, Eos # (Auto) 0.9 H, Baso # (Auto) 1.2 H, Total Counted 100, Neutrophils % (Manual) 67, Lymphocytes % (Manual) 30, Monocytes % (Manual) 3, Platelet Estimate Marked decrease, RBC Morphology Normal, PT 12.1, INR 1.13 H, APTT 35.6 H, D-Dimer 1.02 H, Sodium 137, Potassium 4.2, Chloride 106, Carbon Dioxide 27, Anion Gap 8.2, BUN 20, C reatinine 1.60 H, Estimated Creat Clear 54, Estimated GFR 43 L, Est GFR ( Amer) 52 L, Glucose 116 H, Calcium 8.0 L, Total Bilirubin 1.8 H, AST 51, ALT 20, Alkaline Phosphatase 104, Troponin I < 0.01, NT-Pro-B Natriuret Pep 1160 H, Total Protein 6.6, Albumin 3.5, Globulin 3.1, Albumin/Globulin Ratio 1.1 10/15/23 16:00: Troponin I < 0.01 10/15/23 13:30 10/15/23 13:30 Response Orders (Tests/Meds): ED MEDICATIONS Discontinued Medications Generic Name Dose Route Start Last Admin Trade Name Freq PRN Reason Stop Dose Admin Lactated Ringer's 1,000 mls @ 999 mls/hr 10/15/23 14:02 10/15/23 14:22 Lactated Ringer's 1000 Ml Bag IV 10/15/23 15:02 999 mls/hr .Q1H1M ONE Administration Iopamidol 75 ml 10/15/23 15:55 10/15/23 16:01 Iopamidol-370 (76%);100ml Bottle IV 10/15/23 15:56 75 ml ONCE ONE Administration Sodium Chloride 10 ml 10/15/23 15:55 10/15/23 16:01 Sodium Chloride 0.9% 10ml Syr (Rad Only) IV 10/15/23 15:56 10 ml ONCE ONE Administration Sodium Chloride 50 ml 10/15/23 15:55 10/15/23 16:01 0.9 % Sodium Chloride 50 Ml Vial IV 10/15/23 15:56 50 ml ONCE ONE Administration ORDERS Category Date Time Status CT abdomen pelvis w con Stat Cat Scan 10/15/23 14:[address] angio chest PE protocol Stat Cat Scan 10/15/23 14:56 Completed POCUS Point of Care (ER Only) Stat Exams 10/15/23 13:44 Completed POCUS Point of Care (ER Only) Stat Exams 10/15/23 15:21 Completed XR chest 2V Stat Exams 10/15/23 13:42 Completed Complete Blood Count Auto Diff Stat Lab 10/15/23 13:30 Completed Comprehensive Metabolic Panel Stat Lab 10/15/23 13:30 Completed D-Dimer Stat Lab 10/15/23 13:30 Completed INR [Prothrombin Time INR] Stat Lab 10/15/23 13:30 Completed NT Pro Brain Natriuretic Pep. Stat Lab 10/15/23 13:30 Completed PTT [Activated Partial Thrombo Time] Stat Lab 10/15/23 13:30 Completed Troponin I Q3H Lab 10/15/23 13:30 Completed Troponin I Q3H Lab 10/15/23 16:00 Completed MDM Narrative Medical Decision Narrative: Is a 73-year-old male with history of splenomegaly secondary to myelodysplastic syndrome currently following with hematology at [facility] presenting with multiple complaints. Patient states that he has been intermittently short of breath over the past few weeks, for the past 2 or 3 days, concerned for bilateral lower extremity swelling, itching, warmth, redness. Has never had anything like this in the past. No history of cardiac disease or heart failure. Patient states he has not noticed anything that better or worse. Has not tried elevating them. No chills, nausea vomiting, chest pain, syncopal episodes, abdominal pain, vomiting, recent illness, or any other concerns. No history of DVT or PE. Other than myelodysplastic syndrome, no DVT or PE risk factors. History was obtained via conversation with patient. On arrival, patient hemodynamically stable, alert, oriented x4, appropriate, GCS 15, moving all extremities spontaneously, pupils equal and reactive to light. Full physical exam performed and significant for lungs are clear to auscultation, cardiac exam within normal limits, pulses equal and symmetric. He does have bilateral lower extremity edema that is 2+, excoriations and erythema present. Symmetric, neurologically intact and ambulatory. Patient's abdomen is soft, but distended and nontender. He states this is chronic for him. Differential includes DVT, CHF, congestive hepatomegaly, congestive splenomegaly, effusion, tamponade, CHF,, cellulitis, among others. Patient was given LR bolus for symptomatic management and correction of underlying abnormalities. Workup independently interpreted and significant for leukocytosis 24,000 with neutrophilia. Patient does have anemia 12.4 as well is a thrombocytopenia at 38,000, which is new. Patient D-dimer elevated at 1.0, creatinine elevated at 1.6 with bilirubin mildly elevated 1.8 nonactionable LFTs otherwise. Troponin normal, BNP mildly elevated 1100. Bedside 20 care cardiac ultrasound without acute cardiac abnormality. No lower extremity DVT. Independent interpretation of EKG shows sinus rhythm 89 beats a minute no ST or T wave changes concerning for acute ischemia. AR, QRS, QT intervals within normal limits. Patient placed on continuous cardiac monitoring and continuous pulse ox with initial blood pressure 148/83, heart rate 90, saturation 95% on room air. Prior to CTA of the chest and CT abdomen pelvis and final disposition, care handed off to oncoming physician. <Edmond Zimmer MD - Last Filed: 10/16/23 17:28> Vital Signs Vital Signs: 10/15/23 13:20 10/15/23 13:34 10/15/23 13:40 Temperature 97.9 F Temperature Source Oral Pulse Rate 90 92 H Pulse Rate [Right Radial] 90 Respiratory Rate 20 18 Blood Pressure 116/64 Blood Pressure [Right Arm] 148/83 H Blood Pressure Mean [Right Arm] 104 02 Sat by Pulse Oximetry 95 94 L Oxygen Delivery Method Room Air 10/15/23 14:01 10/15/23 14:30 10/15/23 15:00 Temperature Temperature Source Pulse Rate 94 H 91 H 77 Pulse Rate [Right Radial] Respiratory Rate 18 16 21 Blood Pressure 134/73 135/71 120/67 Blood Pressure [Right Arm] Blood Pressure Mean [Right Arm] 02 Sat by Pulse Oximetry 94 L 93 L 93 L Oxygen Delivery Method Room Air Room Air 10/15/23 16:00 10/15/23 16:30 10/15/23 17:00 Temperature Temperature Source Pulse Rate 80 91 H 84 Pulse Rate [Right Radial] Respiratory Rate Blood Pressure 133/65 129/70 140/61 Blood Pressure [Right Arm] Blood Pressure Mean [Right Arm] 02 Sat by Pulse Oximetry 94 L 94 L 94 L Oxygen Delivery Method Room Air Room Air Room Air 10/15/23 17:30 10/15/23 18:01 10/15/23 18:30 Temperature Temperature Source Pulse Rate 89 86 86 Pulse Rate [Right Radial] Respiratory Rate 23 Blood Pressure 148/77 H 136/62 132/72 Blood Pressure [Right Arm] Blood Pressure Mean [Right Arm] 02 Sat by Pulse Oximetry 94 L 94 L 94 L Oxygen Delivery Method Room Air Room Air Room Air 10/15/23 19:00 10/15/23 19:16 Temperature 98.1 F Temperature Source Oral Pulse Rate 86 85 Pulse Rate [Right Radial] Respiratory Rate 22 24 Blood Pressure 138/71 138/71 Blood Pressure [Right Arm] Blood Pressure Mean [Right Arm] 02 Sat by Pulse Oximetry 93 L Oxygen Delivery Method Room Air Room Air Lab Data Labs: Lab Results 10/15/23 13:30: WBC 24.1 H*, RBC 4.58 L, Hgb 12.4 L, Hct 39.6 L, MCV 86.6, MCH 27.0, MCHC 31.2 L, RDW 19.4 H, Plt Count 38 L*, MPV 14.0 H, Neut % (Auto) 77.1, Lymph % (Auto) 15.0, Cascade % (Auto) 4.3, Eos % (Auto) 3.7, Baso % (Auto) 4.9 H, N eut # (Auto) 18.6 H, Lymph # (Auto) 3.6, Cascade # (Auto) 1.0, Eos # (Auto) 0.9 H, Baso # (Auto) 1.2 H, Total Counted 100, Neutrophils % (Manual) 67, Lymphocytes % (Manual) 30, Monocytes % (Manual) 3, Platelet Estimate Marked decrease, RBC Morphology Normal, PT 12.1, INR 1.13 H, APTT 35.6 H, D-Dimer 1.02 H, Sodium 137, Potassium 4.2, Chloride 106, Carbon Dioxide 27, Anion Gap 8.2, BUN 20, C reatinine 1.60 H, Estimated Creat Clear 54, Estimated GFR 43 L, Est GFR ( Amer) 52 L, Glucose 116 H, Calcium 8.0 L, Total Bilirubin 1.8 H, AST 51, ALT 20, Alkaline Phosphatase 104, Troponin I < 0.01, NT-Pro-B Natriuret Pep 1160 H, Total Protein 6.6, Albumin 3.5, Globulin 3.1, Albumin/Globulin Ratio 1.1 10/15/23 16:00: Troponin I < 0.01 Response Orders (Tests/Meds): ED MEDICATIONS Discontinued Medications Generic Name Dose Route Start Last Admin Trade Name Freq PRN Reason Stop Dose Admin Lactated Ringer's 1,000 mls @ 999 mls/hr 10/15/23 14:02 10/15/23 14:22 Lactated Ringer's 1000 Ml Bag IV 10/15/23 15:02 999 mls/hr .Q1H1M ONE Administration Iopamidol 75 ml 10/15/23 15:55 10/15/23 16:01 Iopamidol-370 (76%);100ml Bottle IV 10/15/23 15:56 75 ml ONCE ONE Administration Sodium Chloride 10 ml 10/15/23 15:55 10/15/23 16:01 Sodium Chloride 0.9% 10ml Syr (Rad Only) IV 10/15/23 15:56 10 ml ONCE ONE Administration Sodium Chloride 50 ml 10/15/23 15:55 10/15/23 16:01 0.9 % Sodium Chloride 50 Ml Vial IV 10/15/23 15:56 50 ml ONCE ONE Administration ORDERS Category Date Time Status CT abdomen pelvis w con Stat Cat Scan 10/15/23 14:[address] angio chest PE protocol Stat Cat Scan 10/15/23 14:56 Completed POCUS Point of Care (ER Only) Stat Exams 10/15/23 13:44 Completed POCUS Point of Care (ER Only) Stat Exams 10/15/23 15:21 Completed XR chest 2V Stat Exams 10/15/23 13:42 Completed Complete Blood Count Auto Diff Stat Lab 10/15/23 13:30 Completed Comprehensive Metabolic Panel Stat Lab 10/15/23 13:30 Completed D-Dimer Stat Lab 10/15/23 13:30 Completed INR [Prothrombin Time INR] Stat Lab 10/15/23 13:30 Completed NT Pro Brain Natriuretic Pep. Stat Lab 10/15/23 13:30 Completed PTT [Activated Partial Thrombo Time] Stat Lab 10/15/23 13:30 Completed Troponin I Q3H Lab 10/15/23 13:30 Completed Troponin I Q3H Lab 10/15/23 16:00 Completed MDM Narrative Medical Decision Narrative: Is a 73-year-old male with history of splenomegaly secondary to myelodysplastic syndrome currently following with hematology at [facility] presenting with multiple complaints. Patient states that he has been intermittently short of breath over the past few weeks, for the past 2 or 3 days, concerned for bilateral lower extremity swelling, itching, warmth, redness. Has never had anything like this in the past. No history of cardiac disease or heart failure. Patient states he has not noticed anything that better or worse. Has not tried elevating them. No chills, nausea vomiting, chest pain, syncopal episodes, abdominal pain, vomiting, recent illness, or any other concerns. No history of DVT or PE. Other than myelodysplastic syndrome, no DVT or PE risk factors. History was obtained via conversation with patient. On arrival, patient hemodynamically stable, alert, oriented x4, appropriate, GCS 15, moving all extremities spontaneously, pupils equal and reactive to light. Full physical exam performed and significant for lungs are clear to auscultation, cardiac exam within normal limits, pulses equal and symmetric. He does have bilateral lower extremity edema that is 2+, excoriations and erythema present. Symmetric, neurologically intact and ambulatory. Patient's abdomen is soft, but distended and nontender. He states this is chronic for him. Differential includes DVT, CHF, congestive hepatomegaly, congestive splenomegaly, effusion, tamponade, CHF,, cellulitis, among others. Patient was given LR bolus for symptomatic management and correction of underlying abnormalities. Workup independently interpreted and significant for leukocytosis 24,000 with neutrophilia. Patient does have anemia 12.4 as well is a thrombocytopenia at 38,000, which is new. Patient D-dimer elevated at 1.0, creatinine elevated at 1.6 with bilirubin mildly elevated 1.8 nonactionable LFTs otherwise. Troponin normal, BNP mildly elevated 1100. Bedside 20 care cardiac ultrasound without acute cardiac abnormality. No lower extremity DVT. Independent interpretation of EKG shows sinus rhythm 89 beats a minute no ST or T wave changes concerning for acute ischemia. AR, QRS, QT intervals within normal limits. Patient placed on continuous cardiac monitoring and continuous pulse ox with initial blood pressure 148/83, heart rate 90, saturation 95% on room air. Prior to CTA of the chest and CT abdomen pelvis and final disposition, care handed off to oncoming physician. Edmond Zimmer MD: I assumed care of this patient from the previous emergency medicine physician. CT imaging reveals no acute surgical pathology. I discussed the case with sap security consultant from [facility] hematology regarding management and disposition. After discussion of the case patient was deemed appropriate for discharge with outpatient follow-up. Patient and family member at bedside are in agreement with this plan. Return precautions were given.
--- NOTE | 2023-10-15 14:03 | CT_ITS ---
FINAL REPORT TECHNIQUE: After the administration of oral and intravenous contrast, axial images were obtained through the abdomen and pelvis by computed tomography. The study was performed with techniques to keep radiation dose as low as reasonably achievable, (ALARA). Individual dose reduction techniques using automated exposure control or adjustment of mA and/or kV according to the patient's size were employed. CLINICAL HISTORY: hepatosplenomegaly, new LE edema and ABBEY rule out IVC compression COMPARISON: 09/24/2022 FINDINGS: Abdomen: The lung bases are clear. The liver is nodular in appearance, consistent with the patient's underlying diagnosis of cirrhosis. The gallbladder is present. The spleen measures 32 cm in craniocaudal dimension and up to 33 mm in the transverse dimension, exceedingly enlarged. There are multiple varices present in the upper abdomen. The pancreas is unremarkable. There is a right adrenal nodule again noted, stable from the prior CT of 2022. There is a right renal parapelvic cyst present, also stable. There is no evidence of compromise of the inferior vena cava. The aorta is normal in caliber. There is no free fluid or adenopathy. Pelvis: The appendix is not identified. There are scattered diverticula present throughout the colon. The urinary bladder is unremarkable. There is no free fluid or adenopathy. There is advanced hypertrophic change of the lower lumbar spine, particularly involving the L2-3 and L3-4 levels. IMPRESSION: Massively enlarged spleen as described above, with multiple varices in the upper abdomen. The liver is somewhat nodular, consistent with underlying cirrhosis. The overall appearance is relatively stable when compared to the prior CT of August 2022. Right adrenal nodule remains stable in appearance. No evidence of compromise of the inferior vena cava is seen. Reviewed, Interpreted and Dictated by Leo Lora MD Transcribed by Esther Valera Authenticated and [facility]
--- NOTE | 2023-10-15 14:04 | PC.NURSE ---
Pt gone to RAD for CXR
[2023-10-15 14:07] LABS: NT Pro Brain Natriuretic Pep. 1160 pg/mL (0-125)
[2023-10-15 14:17] LABS: Troponin I < 0.01 ng/ml (0.00-0.034)
[2023-10-15] MEDS: LACTATED RINGERS 1000ML 1,000 ML 999 ML IV (14:22)
[2023-10-15 14:28] LABS: D-Dimer 1.02 ug/mL (0.0-0.5)
--- NOTE | 2023-10-15 14:29 | PC.NURSE ---
Rounded on pt. No needs voiced at this time. Call light within reach.
[2023-10-15 14:43] LABS: MANUAL DIFFERENTIAL MANUAL DIFFERENTIAL (MANUAL DIFF); Platelet Count 38 K/mm3 (142-424)
--- NOTE | 2023-10-15 14:56 | CT_ITS ---
PROCEDURE INFORMATION: Exam: CTA Chest With Contrast Exam date and time: 10/15/2023 3:29 PM Age: 73 years old Clinical indication: Shortness of breath; Additional info: SOA, dimer, leg swelling TECHNIQUE: Imaging protocol: Computed tomographic angiography of the chest with contrast. Exam focused on the arteries. 3D rendering (Not supervised by radiologist): MIP and/or 3D reconstructed images were created by the technologist. Radiation optimization: All CT scans at this facility use at least one of these dose optimization techniques: automated exposure control; mA and/or kV adjustment per patient size (includes targeted exams where dose is matched to clinical indication); or iterative reconstruction. Contrast material: ISOVUE; Contrast volume: 70 ml; Contrast route: INTRAVENOUS (IV); COMPARISON: CR XR CHEST 2V 10/15/2023 1:[address] abdomen pelvis 10/15/2023 FINDINGS: Pulmonary arteries: Normal. No pulmonary emboli. Aorta: Unremarkable. No aortic aneurysm. No aortic dissection. Lungs: Mosaic attenuation of the lung kenney suggesting small airway disease. Mild bilateral fibro atelectatic changes. Occasional calcified granulomas noted bilaterally. Pleural spaces: Unremarkable. No pneumothorax. No pleural effusion. Heart: Unremarkable. No cardiomegaly. No pericardial effusion. Coronary arteries: Moderate coronary artery calcifications suggesting coronary artery disease. Lymph nodes: Unremarkable. No enlarged lymph nodes. Spleen: Severe splenomegaly redemonstrated. Bones/joints: Unremarkable. No acute fracture. Soft tissues: Unremarkable. IMPRESSION: 1. No evident PE. No other acute findings. 2. Moderate coronary artery calcifications suggesting coronary artery disease. 3. Mosaic attenuation of the lung kenney suggesting small airway disease.
[2023-10-15 15:04] LABS: Lymphocytes % 30 % (10-50); Monocytes % 3 % (2-9); Neutrophils % 67 % (42-76); RBC Morphology Normal; Total Cells Counted 100
[2023-10-15 15:05] LABS: Platelet Estimate Marked Decrease
[2023-10-15 15:22] LABS: Activated Partial Thrombo Time 35.6 seconds (22.8-30.6); INR 1.13 (0.9-1.1); Prothrombin Time 12.1 seconds (10.1-12.5)
--- NOTE | 2023-10-15 15:29 | PC.NURSE ---
PT TO CT
--- NOTE | 2023-10-15 15:30 | PC.NURSE ---
Radiology took pt to CT
[2023-10-15] MEDS: SODIUM CHLORIDE 0.9% 10ML SYR (RAD ONLY) 10 ML IV (16:01)
[2023-10-15] MEDS: 0.9 % SODIUM CHLORIDE 50 ML VIAL IV (16:01)
[2023-10-15] MEDS: IOPAMIDOL-370 (76%);100ML BOTTLE 75 ML IV (16:01)
[2023-10-15 16:28] LABS: Troponin I < 0.01 ng/ml (0.00-0.034)
--- NOTE | 2023-10-15 17:04 | PC.NURSE ---
Rounded on pt. No needs voiced at this time. Call light within reach and visitor at BS.
--- NOTE | 2023-10-15 18:16 | PC.NURSE ---
PT PROVIDED URINAL
--- NOTE | 2023-10-15 18:36 | PC.NURSE ---
Calling [facility] regarding Thromcytopenia with their Hematology
--- NOTE | 2023-10-15 18:44 | PC.NURSE ---
Dr. Zimmer speaking with Dr. Winters at [facility]
--- NOTE | 2023-10-15 18:56 | PC.NURSE ---
DR DOBBS AT BEDSIDE TO UPDATE PT AND FAMILY
== END 2023-10-15 19:17 | disposition still patient (30) ==
PROVIDERS: Emergency Provider Emergency Medicine
DX: R06.02 Shortness of breath (principal); R59.0 Localized enlarged lymph nodes; D72.829 Elevated white blood cell count, unspecified; D69.6 Thrombocytopenia, unspecified; D64.9 Anemia, unspecified
CPT/HCPCS: 36415; 71046; 71275; 74177; 80053; 83880; 84484; 85007; 85025; 85378; 85610; 85730; 93005; 96360; 99285; Q9967

== ENCOUNTER 2025-06-26 09:41 | Emergency (ER) | payer MEDICARE, MEDICAID, SELFPAY ==
--- OUTSIDE RECORDS SUMMARY | 2025-05-18 11:33 | XMS_ITS | Encounter Summary ---
Author Organization Healthcare Address [address] [place] [address] Care Team Providers Care Director Business Development Name Role Phone Lee Collier MD Unavailable [phone] Debbie Medina MD Primary Care Provider + [phone] Kristopher Benitez RN Unavailable Unavailable Reason for Referral * Imaging (Routine) - Closed Specialty Diagnoses / Procedures Referred By Contac t Referred To Contact Radiology Diagnoses Abdominal ascites Procedures US Guided Abdominal Paracentesis Mary Cardona APRN [address] [place] [address] Phone: tel: fax: Referral ID Status Reason Start Date Expiration Date Visits Re quested Visits Authorized [id number] Closed 05/07/2025 11/06/2026 1 1 Reason for Visit * Auth/Cert (Routine) Specialty Diagnoses / Procedures Referred By Contdeshaun t Referred To Contact Diagnoses SBP (spontaneous bacterial peritonitis) Susanne Duke MD [address] [place] [address] Phone: tel: fax: [facility] Inpatient [address] [place] [address] Phone: tel: Referral ID Status Reason Start Date Expiration Date Visits Re quested Visits Authorized [id number] 1 1 Encounter Details Date Type Department Care Team (Latest Contact Info) Description 05/18/2025 11:33 AM EST - 05/18/2025 11:59 PM EST Hospital Encounter [facility] Interventional Radiology [address] [place] [address] Candido Odonnell, RN None None Other ascites (Primary Dx); Abdominal ascites Discharge Disposition: Home or Self Care Social History Tobacco Use Types Packs/Day Years Used Date Smoking Tobacco: Never Passive Smoke Exposure: Never Smokeless Tobacco: Never Alcohol Use Standard Drinks/Week Comments Never 0 (1 standard drink = 0.6 oz pur e alcohol) Social Connection and Isolation Panel Answer Date Recorded Frequency of Communication w ith Friends and Family Not on file 10/16/2022 How often do you get togethe r with friends or relatives? Never 10/16/2022 How often do you attend chur or christianity services? More than 4 times per year 10/16/2022 Do you belong to any clubs o r organizations such as latter-day groups, unions, fraternal or athletic groups, or school groups? No 10/16/2022 How often do you attend meet ings of the clubs or organizations you belong to? Never 10/16/2022 Are you , , di vorced, , never , or living with a partner? Never 10/16/2022 AUDIT-C Answer Date Recorded Q1: How often do you have a drink containing alcohol? Never 10/16/2022 Q2: How many drinks containi ng alcohol do you have on a typical day when you are drinking? Patient does not drink Q3: How often do you have si x or more drinks on one occasion? Never 10/16/2022 Overall Financial Resource Strain (CARDIA) Answe r Date Recorded How hard is it for you to pa y for the very basics like food, housing, medical care, and heating? Not hard at all 03/20/2024 PHQ-2 Answer Date Recorded Patient Health Questionnaire-2 Score 1 02/05/2025 Exercise Vital Sign Answer Date Recorde d On average, how many days pe r week do you engage in moderate to strenuous exercise (like a brisk walk)? 0 days 10/16/2022 On average, how many minutes do you engage in exercise at this level? 0 min 10/16/2022 PHQ-9 Answer Date Recorded Patient Health Questionnaire-9 Score 8 02/05/2025 Humiliation, Afraid, Rape, and Kick questionnair e Answer Date Recorded Within the last year, have y ou been afraid of your partner or ex-partner? No 01/19/2025 Within the last year, have y ou been humiliated or emotionally abused in other ways by your partner or ex-partner? No Within the last year, have y ou been kicked, hit, slapped, or otherwise physically hurt by your partner or ex-partner? No 01/19/2025 Within the last year, have y ou been raped or forced to have any kind of sexual activity by your partner or ex-partner? No 01/19/2025 Hunger Vital Sign Answer Date Recorded Within the past 12 months, y ou worried that your food would run out before you got the money to buy more. Never true 01/20/20 25 Within the past 12 months, t he food you bought just didn't last and you didn't have money to get more. Never true 01/19/2025 PRAPARE - Transportation Answer Date Re corded In the past 12 months, has l ack of transportation kept you from medical appointments or from getting medications? No 12/30 In the past 12 months, has l ack of transportation kept you from meetings, work, or from getting things needed for daily living? No 01/19/2025 Housing Stability Vital Sign Answer Andrew e Recorded In the last 12 months, was t here a time when you were not able to pay the mortgage or rent on time? No 01/19/2025 Number of Times Moved in the Last Year Not on fi le 01/19/2025 At any time in the past 12 m [place], were you homeless or living in a m[facility] (including now)? No 01/19/2025 CAGE ASSESSMENT Answer Date Recorded Cage unable to access Not on file 01/19/2025 Cage max number of drinks Not on file 2024 Cage Beverages a week Not on file 01/19/2025 Have you ever felt you should CUT down on your d rinking? 0 01/19/2025 Have you been ANNOYED by people criticizing your drinking? 0 01/19/2025 Have you felt GUILTY about your drinking? 0 01/19/2025 Have you had a drink first t july in the morning ([employer]) to steady your nerves or to get rid of a hangover? 0 01/19/2025 CAGE Questionnaire Score 0 025 Utilities Answer Date Recorded In the past 12 months has th e electric, gas, oil, or water company threatened to shut off services in your home? No 01/19/2025 PHQ-2A Answer Date Recorded Patient Health Questionnaire-2 Score 0 03/22/2023 Sex and Gender Information Value Date Recorded Sex Assigned at Male 10/10/2024 1:42 PM EDT Legal Sex Male 6:11 PM EDT Gender Identity Not on file Sexual Orientation Not on file documented as of this encounter Last Filed Vital Signs Vital Sign Reading Time Taken Comments Blood Pressure 111/79 05/18/2025 1:39 PM EST Pulse 92 05/18/2025 1:45 PM EST Temperature 36.5 C (97.7 F) 05/18/2025 1:39 PM EST Respiratory Rate 20 05/18/2025 1:45 PM EST Oxygen Saturation 93% 05/18/2025 1:45 PM EST Inhaled Oxygen Concentration - - Weight 89.2 kg (196 lb 10.4 oz) 025 12:13 PM EST Height 162.6 cm (5' 4 ) 05/18/2025 12:1 3 PM EST Body Mass Index 33.76 05/18/2025 12:13 PM EST documented in this encounter Functional Status * HEENT Question Answer Date of Assessment Author KALYANI (CELIO) WDPerez 05/18/2025 1:39 PM EST Candido Odonnell RN * BMI (Calculated) Answer Date of Assessment Author 33.8 05/18/2025 12:13 PM EST Carroll Odonnell RN * Percent Excess Weight Loss Answer Date of Assessment Author 0 05/18/2025 12:13 PM EST Carroll Odonnell RN * Total Weight Change Percent Answer Date of Assessment Author 222105/18/2025 12:13 PM EST Carroll Odonnell RN * Weight Change Since Preop Answer Date of Assessment Author 89.18 05/18/2025 12:13 PM EST Carroll Odonnell RN * Initial Excess Weight Answer Date of Assessment Author -58.97 05/18/2025 12:13 PM Carroll Snyder RN * IBW in lbs (Bariatric) Answer Date of Assessment Author 130 05/18/2025 12:13 PM Carroll Snyder RN * Weight Change Since Last Visit Answer Date of Assessment Author 89.18 05/18/2025 12:13 PM Carroll Snyder RN * IBW in kg (Bariatric) Answer Date of Assessment Author 58.97 05/18/2025 12:13 PM Carroll Snyder RN * Percent of IBW Answer Date of Assessment Author 5,335.61 05/18/2025 12:13 PM Carroll Snyder RN * EBW (kg) Answer Date of Assessment Author 3,144.74 05/18/2025 12:13 PM Carroll Snyder RN * EBW (lbs) Answer Date of Assessment Author 3,138.29 05/18/2025 12:13 PM Carroll Snyder RN * Outcome Summary Question Answer Date of Assessment Author Outcome Evaluation Met - no falls in IR 05/18/2025 1:5 5 PM Candido Snyder RN Plan of Care Reviewed With patient 05/18/2025 12:26 PM Candido Snyder RN * Individualization Question Answer Date of Assessment Author Patient/Family-Specific Goals (Include Timeframe) Remain fall free while in IR 05/18/2025 12:26 PM Candido Snyder RN Individualized Care Needs bed wheels loc ked, call velazquez within reach 05/18/2025 12:26 PM Candido Snyder RN Anxieties, Fears or Concerns None 05/18/2025 12:26 PM Candido Snyder RN * Goal: Physiologic Homeostasis Question Answer Date of Assessment Author Elevated Risk Identified bleeding 05/18/2025 1:55 PM Candido Snyder RN Outcome Physiologic Homeostasis met 05/18/2025 1:55 PM Candido Snyder R N Bleeding Management dressing monitored 05/18/2025 1:55 PM Candido Snyder RN * Weight Change 24 hrs Answer Date of Assessment Author 6.5 05/18/2025 12:13 PM Carroll Snyder RN * Oxygen Therapy Question Answer Date of Assessment Author SpO2 93 05/18/2025 1:45 PM Candido Snyder RN Patient Activity During SpO2 Measurement At rest 05/18/2025 12:13 PM Candido Snyder RN Oxygen Therapy None 05/18/2025 1:39 PM Candido Garcia RN * Height and Weight Question Answer Date of Assessment Author Height 64 05/18/2025 12:13 PM Candido Gomez RN Weight 3146.41 05/18/2025 12:13 PM Candido Gomez RN Height Method Stated 05/18/2025 12:13 PM Candido Garcia RN BSA (Calculated - sq m) 2.01 05/18/2025 12:13 PM Candido Snyder RN BMI (Calculated) 33.74 05/18/2025 12:13 PM Candido Snyder RN Weight Method Standing scale 05/18/2025 12:13 PM Candido Bell RN IBW/kg (Calculated) 59.2 05/18/2025 12:[address] Candido Odonnell RN * Gastrointestinal Question Answer Date of Assessment Author Abdominal Tenderness Soft;Nontender 05/18/2025 1:39 PM Candido Snyder RN Gastrointestinal (WDL) X 05/18/2025 1:39 PM Candido Snyder RN Abdomen Inspection Rounded;Distended;Taut 05/18/2025 1 :39 PM Candido Snyder RN GI Symptoms Distention 05/18/2025 12:13 PM Candido Snyder RN * Peripheral Vascular Question Answer Date of Assessment Author Peripheral Vascular (WDL) X 05/18/2025 1:39 PM Candido Snyder R N RLE Edema +2 05/18/2025 1:39 PM Candido Snyder RN LLE Edema +2 05/18/2025 1:39 PM Candido Snyder RN Capillary Refill 3-4 seconds 05/18/2025 1:39 PM Candido Bell RN Cyanosis None 05/18/2025 1:39 PM Candido Snyder RN Edema Right lower extremity;Left lower extremity 05/18/2025 1:39 PM Candido Snyder RN * RUE Neurovascular Assessment Question Answer Date of Assessment Author RUE Capillary Refill Less than/equal to 2 seconds 05/18/2025 1:39 PM Candido Snyder RN * LUE Neurovascular Assessment Question Answer Date of Assessment Author LUE Capillary Refill Less than/equal to 2 seconds 05/18/2025 1:39 PM Candido Snyder RN * RLE Neurovascular Assessment Question Answer Date of Assessment Author RLE Capillary Refill 3-4 seconds 05/18/2025 1:39 PM E Candido Lizarraga RN * LLE Neurovascular Assessment Question Answer Date of Assessment Author LLE Capillary Refill 3-4 seconds 05/18/2025 1:39 PM E Candido Lizarraga RN * Musculoskeletal Question Answer Date of Assessment Author RUE Full movement 05/18/2025 1:39 PM Candido Gomez RN RLE Weakness 05/18/2025 1:39 PM Candido Snyder RN LUE Full movement 05/18/2025 1:39 PM Candido Gomez RN LLE Weakness 05/18/2025 1:39 PM Candido Snyder RN Musculoskeletal (WDL) X 05/18/2025 1:39 PM Candido Snyder RN * Psychosocial Question Answer Date of Assessment Author Psychosocial (WDL) WDL 05/18/2025 1:39 PM Candido Snyder RN * [place] Fall Risk Question Answer Date of Assessment Author History of Falling, Immediat e or Within 3 Months 0 05/18/2025 12:25 PM Candido Snyder RN Secondary Diagnosis 15 05/18/2025 12:25 PM Candido Cooper RN Ambulatory Aid 15 05/18/2025 12:25 PM Candido Castillo RN Intravenous Therapy/Heparin Lock 0 05/18/20 12:25 PM Candido Snyder RN Gait/Transferring 10 05/18/2025 12:25 PM Candido Snyder RN Mental Status 0 05/18/2025 12:25 PM Candido Garcia RN Morse Fall Risk Score 40 05/18/2025 12:25 PM Candido Snyder RN * Cardiac Question Answer Date of Assessment Author Cardiac (WDL) X 05/18/2025 1:39 PM Candido Gomez RN Cardiac Regularity Irregular 05/18/2025 1:39 PM Candido Snyder RN Cardiac Symptoms None 05/18/2025 12:13 PM Candido Snyder RN * Respiratory Question Answer Date of Assessment Author Bilateral Breath Sounds Clear;Diminished 05/18/2025 1: 39 PM Candido Snyder RN Respiratory Pattern Shallow;Shortness of air 05/18/2025 1:39 PM Candido Snyder RN Chest Assessment Symmetrical 05/18/2025 1:39 PM Candido Bell RN Respiratory ([facility]) X 05/18/2025 1:39 PM Candido Snyder RN Respiratory Effort Unlabored 05/18/2025 12 :13 PM Candido Snyder RN Respiratory Depth/Rhythm Shallow 05/18/2025 12:13 PM Candido Snyder RN Dyspnea Occurrence At rest 05/18/2025 12 :13 PM Candido Snyder RN * Genitourinary Question Answer Date of Assessment Author Genitourinary ([facility]) WDL 05/18/2025 1:39 PM ERIKA T Candido Odonnell RN * Neurological Question Answer Date of Assessment Author Level of Consciousness Alert 05/18/2025 1:39 PM Candido Snyder RN Orientation Level Oriented X4 05/18/2025 1:39 PM Candido Snyder RN Cognition Appropriate judgement;Follows commands 05/18/2025 1:39 PM Candido Snyder RN Speech Clear 05/18/2025 1:39 PM Candido Snyder RN Neuro ([facility]) X 05/18/2025 1:39 PM Candido Snyder RN Neuro Symptoms Drowsiness;Fatigue 05/18/2025 1:39 PM E Candido Lizarraga RN * Fall Risk Interventions Question Answer Date of Assessment Author NonSkid Footwear Patient in bed 05/18/2025 12:2 5 PM Candido Snyder RN Toilet Every 2 Hours-In Advance of Need Education provided 05/18/2025 12:25 PM Candido Snyder RN Hourly Visual Checks Awake;In bed 05/18/2025 12:25 PM Candido Snyder RN Room Door Open Deferred to decrease stimulation;Deferred to promote rest 05/18/2025 12:25 PM Candido Snyder RN Gait Belt Used For Transfers Education provided 05/18/2025 12:25 PM Candido Snyder RN Fall Bundle Components Call light within reach;Personal belongings within reach;Overbed table within reach;Bed in lowest position;Bed wheels locked 05/18/2025 12:25 PM Candido Snyder RN * IBW/kg (Calculated) Male Answer Date of Assessment Author 59.2 05/18/2025 12:13 PM Carroll Snyder RN * IBW/kg (Calculated) Female Answer Date of Assessment Author 54.7 05/18/2025 12:13 PM Carroll Snyder RN * Oxygen Therapy Question Answer Date of Assessment Author Oximetry Probe Site Changed No 05/18/2025 12 :57 PM Bekah Maya RN Pulse Oximetry Type Continuous 05/18/2025 12:57 PM Bekah Bose RN * Restart Vitals Timer Answer Date of Assessment Author Yes 05/18/2025 1:39 PM Tamia Snyder RN * IBW/kg (Calculated) Answer Date of Assessment Author 59.2 05/18/2025 12:13 PM Carroll Snyder RN * Louise Coma Scale Question Answer Date of Assessment Author Best Eye Response Spontaneous 05/18/2025 1:39 PM Candido Snyder RN Best Verbal Response Oriented 05/18/2025 1:39 PM Candido Cooper RN Best Motor Response Follows commands 05/18/2025 1:39 P Candido Green RN Prachi Coma Scale Score 15 05/18/2025 1:39 PM Candido Snyder RN * Weight in (lb) to have BMI = 25 Answer Date of Assessment Author 145.3 05/18/2025 12:13 PM Carroll Snyder RN * BMI (Calculated) Answer Date of Assessment Author 33.8 05/18/2025 12:13 PM Carroll Snyder RN * Percent Excess Weight Loss Answer Date of Assessment Author 0 05/18/2025 12:13 PM Carroll Snyder RN * Weight Change Since Preop Answer Date of Assessment Author 89.2 05/18/2025 12:13 PM Carroll Snyder RN * Initial Excess Weight Answer Date of Assessment Author -58.97 05/18/2025 12:13 PM Carroll Snyder RN * IBW in kg (Bariatric) Answer Date of Assessment Author 58.97 05/18/2025 12:13 PM Carroll Snyder RN * IBW in lb (Bariatric) Answer Date of Assessment Author 130 05/18/2025 12:13 PM Carroll Snyder RN * Weight Change Since Last Visit Answer Date of Assessment Author 89.2 05/18/2025 12:13 PM Carroll Snyder RN * Percent of IBW Answer Date of Assessment Author 151.27 05/18/2025 12:13 PM Carroll Snyder RN * EBW (kg) Answer Date of Assessment Author 30.21 05/18/2025 12:13 PM Carroll Snyder RN * EBW (lb) Answer Date of Assessment Author 66.65 05/18/2025 12:13 PM Carroll Snyder RN * Difference in Weight Since Last Visit Answer Date of Assessment Author 6.5 05/18/2025 12:13 PM Carroll Snyder RN * Temp (in Celsius) for [place] Answer Date of Assessment Author 36.5 05/18/2025 1:39 PM Tamia Snyder RN * Pain Assessment Question Answer Date of Assessment Author Patient's Stated Pain Goal No pain 05/18/2025 12:13 PM Candido Snyder RN Pain Score 0 05/18/2025 1:39 PM Candido Snyder RN Pain Assessment 0-10 (Adult DVPRS/Peds 0-10) 05/18/2025 12:13 PM Candido Snyder RN * Adult Low Range Vt 6mL/kg Answer Date of Assessment Author 355.2 05/18/2025 12:13 PM Carroll Snyder RN * Adult Moderate Range Vt 8mL/kg Answer Date of Assessment Author 473.6 05/18/2025 12:13 PM Carroll Snyder RN * Adult High Range Vt 10mL/kg Answer Date of Assessment Author 592 05/18/2025 12:13 PM Carroll Snyder RN * Integumentary Question Answer Date of Assessment Author Skin Color Blotchy 05/18/2025 1:39 PM Candido Snyder RN Skin Condition/Temp Warm;Dry;Flaky 05/18/2025 1 :39 PM Candido Snyder RN Skin Integrity Bruising 05/18/2025 1:39 PM Candido Snyder RN Skin Turgor Epidermis thin with loss of subcutaneous tissue 05/18/2025 1:39 PM Candido Snyder RN Skin Tone Light 05/18/2025 1:39 PM Candido Snyder RN Bruising Characteristics Scattered 025 12:13 PM Candido Snyder RN Integumentary (WDL) X 05/18/2025 1 :39 PM Candido Snyder RN * Fall Risk Calculated Score Answer Date of Assessment Author [place] Low 05/18/2025 12:25 PM Carroll Snyder RN * Prachi Coma Scale Numeric Answer Date of Assessment Author 15 05/18/2025 1:39 PM Tamia Snyder RN * Vitals Timer Question Answer Date of Assessment Author Restart Vitals Timer Yes 05/18/2025 1:[address] Candido Odonnell RN * Meghann Scale (RS): Score Question Answer Date of Assessment Author Meghann Scale (RS): Score 2 05/18/2025 12:58 PM Bekah Maya RN * Vitals Question Answer Date of Assessment Author BP 111/79 05/18/2025 1:39 PM Candido Snyder RN Temp 97.7 05/18/2025 1:39 PM Candido Snyder RN Temp src Temporal 05/18/2025 1:39 PM Candido Snyder RN Pulse 92 05/18/2025 1:45 PM Candido Snyder RN Resp 20 05/18/2025 1:45 PM Candido Snyder RN Heart Rate Source Monitor 05/18/2025 12:13 PM Candido Snyder RN Cardiac Rhythm A-Fib 05/18/2025 1:39 PM Candido Garcia RN MAP (mmHg) 89 05/18/2025 1:39 PM Candido Snyder RN * Modified Marleny Question Answer Date of Assessment Author Activity 2 05/18/2025 1:39 PM Candido Snydre RN Respiration 2 05/18/2025 1:39 PM Candido Snyder RN Hemodynamic Stability 2 05/18/2025 1:39 PM Candido Snyder RN Consciousness 2 05/18/2025 1:39 PM Candido Gomez RN Oxygen Saturation 2 05/18/2025 1:39 PM Candido Snyder RN Modified Marleny Score 14 05/18/2025 1:39 PM Candido Snyder RN Pain 2 05/18/2025 1:39 PM Candido Snyder RN Emetic Symptoms 2 05/18/2025 1:39 PM Candido Castillo RN * HEENT Question Answer Date of Assessment Author KALYANI (WDL) WDL 05/18/2025 1:39 PM Candido Snyder RN * Outcome Summary Question Answer Date of Assessment Author Outcome Evaluation Met - no falls in IR 05/18/2025 1:5 5 PM Candido Snyder RN Plan of Care Reviewed With patient 05/18/2025 12:26 PM Candido Snyder RN * Individualization Question Answer Date of Assessment Author Patient/Family-Specific Goals (Include Timeframe) Remain fall free while in IR 05/18/2025 12:26 PM Candido Snyder RN Individualized Care Needs bed wheels loc ked, call velazquez within reach 05/18/2025 12:26 PM Candido Snyder RN Anxieties, Fears or Concerns None 05/18/2025 12:26 PM Candido Snyder RN * Goal: Physiologic Homeostasis Question Answer Date of Assessment Author Elevated Risk Identified bleeding 05/18/2025 1:55 PM Candido Snyder RN Outcome Physiologic Homeostasis met 05/18/2025 1:55 PM Candido Snyder R N Bleeding Management dressing monitored 05/18/2025 1:55 PM Candido Snyder RN * Oxygen Therapy Question Answer Date of Assessment Author SpO2 93 05/18/2025 1:45 PM Candido Snyder RN Patient Activity During SpO2 Measurement At rest 05/18/2025 12:13 PM Candido Snyder RN Oxygen Therapy None 05/18/2025 1:39 PM Candido Garcia RN * Height and Weight Question Answer Date of Assessment Author Height 64 05/18/2025 12:13 PM Candido Gomez RN Weight 3146.41 05/18/2025 12:13 PM Candido Gomez RN BSA (Calculated - sq m) 2.01 05/18/2025 12:13 PM Candido Snyder RN BMI (Calculated) 33.74 05/18/2025 12:13 PM Candido Snyder RN * Gastrointestinal Question Answer Date of Assessment Author Abdominal Tenderness Soft;Nontender 05/18/2025 1:39 PM Candido Snyder RN Gastrointestinal (WDL) X 05/18/2025 1:39 PM Candido Snyedr RN Abdomen Inspection Rounded;Distended;Taut 05/18/2025 1 :39 PM Candido Snyder RN GI Symptoms Distention 05/18/2025 12:13 PM Candido Snyder RN * Peripheral Vascular Question Answer Date of Assessment Author Peripheral Vascular (WDL) X 05/18/2025 1:39 PM Candido Snyder R N RLE Edema +2 05/18/2025 1:39 PM Candido Snyder RN LLE Edema +2 05/18/2025 1:39 PM Candido Snyder RN Capillary Refill 3-4 seconds 05/18/2025 1:39 PM Candido Bell RN Cyanosis None 05/18/2025 1:39 PM Candido Snyder RN Edema Right lower extremity;Left lower extremity 05/18/2025 1:39 PM Candido Snyder RN * RUE Neurovascular Assessment Question Answer Date of Assessment Author RUE Capillary Refill Less than/equal to 2 seconds 05/18/2025 1:39 PM Candido Snyder RN * LUE Neurovascular Assessment Question Answer Date of Assessment Author LUE Capillary Refill Less than/equal to 2 seconds 05/18/2025 1:39 PM Candido Snyder RN * RLE Neurovascular Assessment Question Answer Date of Assessment Author RLE Capillary Refill 3-4 seconds 05/18/2025 1:[address] Candido Odonnell RN * LLE Neurovascular Assessment Question Answer Date of Assessment Author LLE Capillary Refill 3-4 seconds 05/18/2025 1:39 PM E Candido Lizarraga RN * Musculoskeletal Question Answer Date of Assessment Author RUE Full movement 05/18/2025 1:39 PM Candido Gomez RN RLE Weakness 05/18/2025 1:39 PM Candido Snyder RN LUE Full movement 05/18/2025 1:39 PM Candido Gomez RN LLE Weakness 05/18/2025 1:39 PM Candido Snyder RN Musculoskeletal (WDL) X 05/18/2025 1:39 PM Candido Snyder RN * Psychosocial Question Answer Date of Assessment Author Psychosocial (WDL) WDL 05/18/2025 1:39 PM Candido Snyder RN * [place] Fall Risk Question Answer Date of Assessment Author History of Falling, Immediat e or Within 3 Months 0 05/18/2025 12:25 PM Candido Snyder RN Secondary Diagnosis 15 05/18/2025 12:25 PM E Candido Lizarraga RN Ambulatory Aid 15 05/18/2025 12:25 PM Candido Castillo RN Intravenous Therapy/Heparin Lock 0 05/18/20 12:25 PM Candido Snyder RN Gait/Transferring 10 05/18/2025 12:25 PM Candido Snyder RN Mental Status 0 05/18/2025 12:25 PM Candido Garcia RN [place] Fall Risk Score 40 05/18/2025 12:25 PM Candido Snyder RN * Cardiac Question Answer Date of Assessment Author Cardiac ([facility]) X 05/18/2025 1:39 PM Candido Gomez RN Cardiac Regularity Irregular 05/18/2025 1:39 PM Candido Snyder RN Cardiac Symptoms None 05/18/2025 12:13 PM Candido Snyder RN * Respiratory Question Answer Date of Assessment Author Bilateral Breath Sounds Clear;Diminished 05/18/2025 1: 39 PM Candido Snyder RN Respiratory Pattern Shallow;Shortness of air 05/18/2025 1:39 PM Candido Snyder RN Chest Assessment Symmetrical 05/18/2025 1:39 PM EST Candido Yanes RN Respiratory ([facility]) X 05/18/2025 1:39 PM Candido Snyder RN Respiratory Effort Unlabored 05/18/2025 12 :13 PM Candido Snyder RN Respiratory Depth/Rhythm Shallow 05/18/2025 12:13 PM Candido Snyder RN Dyspnea Occurrence At rest 05/18/2025 12 :13 PM Candido Snyder RN * Genitourinary Question Answer Date of Assessment Author Genitourinary (WDL) WDL 05/18/2025 1:39 PM Candido Ferguson RN * Neurological Question Answer Date of Assessment Author Level of Consciousness Alert 05/18/2025 1:39 PM Candido Snyder RN Orientation Level Oriented X4 05/18/2025 1:39 PM Candido Snyder RN Cognition Appropriate judgement;Follows commands 05/18/2025 1:39 PM Candido Snyder RN Speech Clear 05/18/2025 1:39 PM Candido Snyder RN Neuro ([facility]) X 05/18/2025 1:39 PM Candido Snyder RN Neuro Symptoms Drowsiness;Fatigue 05/18/2025 1:39 PM Candido Cooper RN * Fall Risk Interventions Question Answer Date of Assessment Author NonSkid Footwear Patient in bed 05/18/2025 12:2 5 PM Candido Snyder RN Toilet Every 2 Hours-In Advance of Need Education provided 05/18/2025 12:25 PM Candido Snyder RN Hourly Visual Checks Awake;In bed 05/18/2025 12:25 PM Candido Snyder RN Room Door Open Deferred to decrease stimulation;Deferred to promote rest 05/18/2025 12:25 PM Candido Snyder RN Gait Belt Used For Transfers Education provided 05/18/2025 12:25 PM Candido Snyder RN Fall Bundle Components Call light within reach;Personal belongings within reach;Overbed table within reach;Bed in lowest position;Bed wheels locked 05/18/2025 12:25 PM Candido Snyder RN * Oxygen Therapy Question Answer Date of Assessment Author Oximetry Probe Site Changed No 05/18/2025 12 :57 PM Bekah Maya RN Pulse Oximetry Type Continuous 05/18/2025 12:57 PM Bekah Bose RN * Restart Vitals Timer Answer Date of Assessment Author Yes 05/18/2025 1:39 PM Tamia Snyder RN * Prachi Coma Scale Question Answer Date of Assessment Author Best Eye Response Spontaneous 05/18/2025 1:39 PM Candido Snyder RN Best Verbal Response Oriented 05/18/2025 1:39 PM E Candido Lizarraga RN Best Motor Response Follows commands 05/18/2025 1:39 P M Candido Snyder RN Louise Coma Scale Score 15 05/18/2025 1:39 PM Candido Snyder RN * Weight in (lb) to have BMI = 25 Answer Date of Assessment Author 145.3 05/18/2025 12:13 PM Carroll Snyder RN * Pain Assessment Question Answer Date of Assessment Author Patient's Stated Pain Goal No pain 05/18/2025 12:13 PM Candido Snyder RN Pain Score 0 05/18/2025 1:39 PM Candido Snyder RN Pain Assessment 0-10 (Adult DVPRS/Peds 0-10) 05/18/2025 12:13 PM Candido Snyder RN * Integumentary Question Answer Date of Assessment Author Skin Color Blotchy 05/18/2025 1:39 PM Candido Snyder RN Skin Condition/Temp Warm;Dry;Flaky 05/18/2025 1 :39 PM Candido Snyder RN Skin Integrity Bruising 05/18/2025 1:39 PM Candido Snyder RN Skin Turgor Epidermis thin with loss of subcutaneous tissue 05/18/2025 1:39 PM Candido Snyder RN Skin Tone Light 05/18/2025 1:39 PM Candido Snyder RN Bruising Characteristics Scattered 025 12:13 PM Candido Snyder RN Integumentary (WDL) X 05/18/2025 1 :39 PM Candido Snyder RN * Vitals Question Answer Date of Assessment Author BP 111/79 05/18/2025 1:39 PM Candido Snyder RN Temp 97.7 05/18/2025 1:39 PM Candido Snyder RN Temp src Temporal 05/18/2025 1:39 PM Candido Snyder RN Pulse 92 05/18/2025 1:45 PM Candido Snyder RN Resp 20 05/18/2025 1:45 PM Candido Snyder RN Heart Rate Source Monitor 05/18/2025 12:13 PM Candido Snyder RN Cardiac Rhythm A-Fib 05/18/2025 1:39 PM Candido Garcia RN MAP (mmHg) 89 05/18/2025 1:39 PM Candido Snyder RN documented as of this encounter Mental Status * HEENT Question Answer Entry Date Author KALYANI (WDL) WDL 05/18/2025 1:39 PM Candido Snyder RN * BMI (Calculated) Answer Entry Date Author 33.8 05/18/2025 12:13 PM Carroll Snyder RN * Percent Excess Weight Loss Answer Entry Date Author 0 05/18/2025 12:13 PM Carroll Snyder RN * Total Weight Change Percent Answer Entry Date Author 22205/18/2025 12:13 PM Carroll Snyder RN * Weight Change Since Preop Answer Entry Date Author 89.18 05/18/2025 12:13 PM Carroll Snyder RN * Initial Excess Weight Answer Entry Date Author -58.97 05/18/2025 12:13 PM Carroll Snyder RN * IBW in lbs (Bariatric) Answer Entry Date Author 130 05/18/2025 12:13 PM Carroll Snyder RN * Weight Change Since Last Visit Answer Entry Date Author 89.18 05/18/2025 12:13 PM Carroll Snyder RN * IBW in kg (Bariatric) Answer Entry Date Author 58.97 05/18/2025 12:13 PM Carroll Snyder RN * Percent of IBW Answer Entry Date Author 5,335.61 05/18/2025 12:13 PM Carroll Snyder RN * EBW (kg) Answer Entry Date Author 3,144.74 05/18/2025 12:13 PM Carroll Snyder RN * EBW (lbs) Answer Entry Date Author 3,138.29 05/18/2025 12:13 PM Carroll Snyder RN * Outcome Summary Question Answer Entry Date Author Outcome Evaluation Met - no falls in IR 05/18/20 25 1:55 PM Candido Snyder RN Plan of Care Reviewed With patient 05/18/2025 12:26 PM Candido Snyder RN * Individualization Question Answer Entry Date Author Patient/Family-Specific Goals (Include Timeframe) Remain fall free while in IR 05/18/2025 12:26 PM Candido Snyder RN Individualized Care Needs bed wheels loc ked, call velazquez within reach 05/18/2025 12:26 PM Candido Snyder RN Anxieties, Fears or Concerns None 12:26 PM Candido Snyder RN * Goal: Physiologic Homeostasis Question Answer Entry Date Author Elevated Risk Identified bleeding 025 1:55 PM Candido Snyder RN Outcome Physiologic Homeostasis met 05/18/2025 1:55 PM Candido Snyder RN Bleeding Management dressing monitored 1:55 PM Candido Snyder RN * Weight Change 24 hrs Answer Entry Date Author 6.5 05/18/2025 12:13 PM Carroll Snyder RN * Oxygen Therapy Question Answer Entry Date Author SpO2 93 05/18/2025 1:45 PM Candido Snyder RN Patient Activity During SpO2 Measurement At rest 05/18/2025 12:13 PM Candido Snyder RN Oxygen Therapy None 05/18/2025 1:39 PM Candido Garcia RN * Height and Weight Question Answer Entry Date Author Height 64 05/18/2025 12:13 PM Candido Gomez RN Weight 3146.41 05/18/2025 12:13 PM Candido Gomez RN Height Method Stated 05/18/2025 12:13 PM Candido Garcia RN BSA (Calculated - sq m) 2.01 05/18/2025 12:13 PM Candido Snyder RN BMI (Calculated) 33.74 05/18/2025 12:13 PM Candido Snyder RN Weight Method Standing scale 05/18/2025 12:13 PM Candido Bell RN IBW/kg (Calculated) 59.2 05/18/2025 12:13 PM E Candido Lizarraga RN * Gastrointestinal Question Answer Entry Date Author Abdominal Tenderness Soft;Nontender 05/18/2025 1:39 PM Candido Snyder RN Gastrointestinal (WDL) X 1:39 PM Candido Snyder RN Abdomen Inspection Rounded;Distended;Taut 2024 1:39 PM Candido Snyder RN GI Symptoms Distention 05/18/2025 12:13 PM Candido Snyder RN * Peripheral Vascular Question Answer Entry Date Author Peripheral Vascular (WDL) X 05/18/2025 1:39 PM Candido Snyder RN RLE Edema +2 05/18/2025 1:39 PM Candido Snyder RN LLE Edema +2 05/18/2025 1:39 PM Candido Snyder RN Capillary Refill 3-4 seconds 05/18/2025 1:39 PM Candido Snyder RN Cyanosis None 05/18/2025 1:39 PM Candido Snyder RN Edema Right lower extremity;Left lower extremity 05/18/2025 1:39 PM Candido Snyder RN * RUE Neurovascular Assessment Question Answer Entry Date Author RUE Capillary Refill Less than/equal to 2 seconds 05/18/2025 1:39 PM Candido Snyder RN * LUE Neurovascular Assessment Question Answer Entry Date Author LUE Capillary Refill Less than/equal to 2 seconds 05/18/2025 1:39 PM Candido Snyder RN * RLE Neurovascular Assessment Question Answer Entry Date Author RLE Capillary Refill 3-4 seconds 05/18/2025 1:39 PM E Cnadido Lizarraga RN * LLE Neurovascular Assessment Question Answer Entry Date Author LLE Capillary Refill 3-4 seconds 05/18/2025 1:39 PM E Candido Lizarraga RN * Musculoskeletal Question Answer Entry Date Author RUE Full movement 05/18/2025 1:39 PM Candido Gomez RN RLE Weakness 05/18/2025 1:39 PM Candido Snyder RN LUE Full movement 05/18/2025 1:39 PM Candido Gomez RN LLE Weakness 05/18/2025 1:39 PM Candido Snyder RN Musculoskeletal (WDL) X 05/18/2025 1:39 PM Candido Snyder RN * Psychosocial Question Answer Entry Date Author Psychosocial (WDL) WDL 05/18/2025 1:39 PM Candido Snyder RN * [place] Fall Risk Question Answer Entry Date Author History of Falling, Immediat e or Within 3 Months 0 05/18/2025 12:25 PM Candido Snyder RN Secondary Diagnosis 15 05/18/2025 12:[address] Candido Odonnell RN Ambulatory Aid 15 05/18/2025 12:25 PM Candido Castillo RN Intravenous Therapy/Heparin Lock 0 05/18/20 12:25 PM Candido Snyder RN Gait/Transferring 10 05/18/2025 12:25 PM Candido Snyder RN Mental Status 0 05/18/2025 12:25 PM Candido Garcia RN Morse Fall Risk Score 40 05/18/2025 12:25 PM Candido Snyder RN * Cardiac Question Answer Entry Date Author Cardiac (WDL) X 05/18/2025 1:39 PM Candido Gomez RN Cardiac Regularity Irregular 05/18/2025 1:39 PM Candido Snyder RN Cardiac Symptoms None 05/18/2025 12:13 PM Candido Snyder RN * Respiratory Question Answer Entry Date Author Bilateral Breath Sounds Clear;Diminished 025 1:39 PM Candido Snyder RN Respiratory Pattern Shallow;Shortness of air 1:39 PM Candido Snyder RN Chest Assessment Symmetrical 05/18/2025 1:39 PM Candido Snyder RN Respiratory (WD) X 05/18/2025 1:3 9 PM Candido Snyder RN Respiratory Effort Unlabored 05/18/2025 12 :13 PM Candido Snyder RN Respiratory Depth/Rhythm Shallow 025 12:13 PM Candido Snyder RN Dyspnea Occurrence At rest 05/18/2025 12 :13 PM Candido Snyder RN * Genitourinary Question Answer Entry Date Author Genitourinary (WDL) WDL 05/18/2025 1:39 PM ES T Candido Odonnell RN * Neurological Question Answer Entry Date Author Level of Consciousness Alert 1:39 PM Candido Synder RN Orientation Level Oriented X4 05/18/2025 1:3 9 PM Candido Snyder RN Cognition Appropriate judgement;Follows commands 05/18/2025 1:39 PM Candido Snyder RN Speech Clear 05/18/2025 1:39 PM Candido Snyder RN Neuro (WDL) X 05/18/2025 1:39 PM Candido Snyder RN Neuro Symptoms Drowsiness;Fatigue 05/18/2025 1: 39 PM Candido Snyder RN * Fall Risk Interventions Question Answer Entry Date Author NonSkid Footwear Patient in bed 05/18/2025 12:2 5 PM Candido Snyder RN Toilet Every 2 Hours-In Advance of Need Education provided 05/18/2025 12:25 PM Candido Snyder RN Hourly Visual Checks Awake;In bed 05/18/2025 12:25 PM Candido Snyder RN Room Door Open Deferred to decrease stimulation;Deferred to promote rest 05/18/2025 12:25 PM Candido Snyder RN Gait Belt Used For Transfers Education provided 05/18/2025 12:25 PM Candido Snyder RN Fall Bundle Components Call light within reach;Personal belongings within reach;Overbed table within reach;Bed in lowest position;Bed wheels locked 05/18/2025 12:25 PM Candido Snyder RN * IBW/kg (Calculated) Male Answer Entry Date Author 59.2 05/18/2025 12:13 PM Carroll Snyder RN * IBW/kg (Calculated) Female Answer Entry Date Author 54.7 05/18/2025 12:13 PM Carroll Snyder RN * Oxygen Therapy Question Answer Entry Date Author Oximetry Probe Site Changed No 05/18/2025 12 :57 PM Bekah Maya RN Pulse Oximetry Type Continuous 05/18/2025 12:57 PM Bekah Bose RN * Restart Vitals Timer Answer Entry Date Author Yes 05/18/2025 1:39 PM Tamia Snyder RN * IBW/kg (Calculated) Answer Entry Date Author 59.2 05/18/2025 12:13 PM Carroll Snyder RN * Louise Coma Scale Question Answer Entry Date Author Best Eye Response Spontaneous 05/18/2025 1:39 PM Candido Snyder RN Best Verbal Response Oriented 05/18/2025 1:39 PM Candido Cooper RN Best Motor Response Follows commands 05/18/2025 1:39 P Candido Green RN Prachi Coma Scale Score 15 05/18/2025 1:39 PM Candido Snyder RN * Restart Pain Assessment Timer Answer Entry Date Author Yes 05/18/2025 1:39 PM Tamia Snyder RN * Weight in (lb) to have BMI = 25 Answer Entry Date Author 145.3 05/18/2025 12:13 PM Carroll Snyder RN * BMI (Calculated) Answer Entry Date Author 33.8 05/18/2025 12:13 PM Carroll Snyder RN * Percent Excess Weight Loss Answer Entry Date Author 0 05/18/2025 12:13 PM Carroll Snyder RN * Weight Change Since Preop Answer Entry Date Author 89.2 05/18/2025 12:13 PM Carroll Snyder RN * Initial Excess Weight Answer Entry Date Author -58.97 05/18/2025 12:13 PM Carroll Snyder RN * IBW in kg (Bariatric) Answer Entry Date Author 58.97 05/18/2025 12:13 PM Carroll Snyder RN * IBW in lb (Bariatric) Answer Entry Date Author 130 05/18/2025 12:13 PM Carroll Snyder RN * Weight Change Since Last Visit Answer Entry Date Author 89.2 05/18/2025 12:13 PM Carroll Snyder RN * Percent of IBW Answer Entry Date Author 151.27 05/18/2025 12:13 PM Carroll Snyder RN * EBW (kg) Answer Entry Date Author 30.21 05/18/2025 12:13 PM Carroll Snyder RN * EBW (lb) Answer Entry Date Author 66.65 05/18/2025 12:13 PM Carroll Snyder RN * Difference in Weight Since Last Visit Answer Entry Date Author 6.5 05/18/2025 12:13 PM Carroll Snyder RN * Temp (in Celsius) for GRAND TRAVERSE IV Answer Entry Date Author 36.5 05/18/2025 1:39 PM Tamia Snyder RN * Pain Assessment Question Answer Entry Date Author Patient's Stated Pain Goal No pain 05/18/2025 12:13 PM Candido Snyder RN Pain Score 0 05/18/2025 1:39 PM Candido Snyder RN Pain Assessment 0-10 (Adult DVPRS/Peds 0-10) 05/18/2025 12:13 PM Candido Snyder RN * Adult Low Range Vt 6mL/kg Answer Entry Date Author 355.2 05/18/2025 12:13 PM Carroll Snyder RN * Adult Moderate Range Vt 8mL/kg Answer Entry Date Author 473.6 05/18/2025 12:13 PM Carroll Snyder RN * Adult High Range Vt 10mL/kg Answer Entry Date Author 592 05/18/2025 12:13 PM Carroll Snyder RN * Integumentary Question Answer Entry Date Author Skin Color Blotchy 05/18/2025 1:39 PM Candido Snyder RN Skin Condition/Temp Warm;Dry;Flaky 05/18/2025 1 :39 PM Candido Snyder RN Skin Integrity Bruising 05/18/2025 1:39 PM Candido Snyder RN Skin Turgor Epidermis thin with loss of subcutaneous tissue 05/18/2025 1:39 PM Candido Snyder RN Skin Tone Light 05/18/2025 1:39 PM Candido Snyder RN Bruising Characteristics Scattered 025 12:13 PM Candido Snyder RN Integumentary (WDL) X 05/18/2025 1 :39 PM Candido Snyder RN * Fall Risk Calculated Score Answer Entry Date Author Maldonado Godinez 05/18/2025 12:25 PM Carroll Snyder RN * Prachi Coma Scale Numeric Answer Entry Date Author 15 05/18/2025 1:39 PM Tamia Snyder RN * Vitals Timer Question Answer Entry Date Author Restart Vitals Timer Yes 05/18/2025 1:[address] Candido Odonnell RN * Meghann Scale (RS): Score Question Answer Entry Date Author Camden Scale (RS): Score 2 05/18/2025 12:58 PM EST Bekah Colby RN * Vitals Question Answer Entry Date Author BP 111/79 05/18/2025 1:39 PM Canddio Snyder RN Temp 97.7 05/18/2025 1:39 PM EST Candido Odonnell RN Temp src Temporal 05/18/2025 1:39 PM EST Candido Odonnell RN Pulse 92 05/18/2025 1:45 PM Candido Snyder RN Resp 20 05/18/2025 1:45 PM Candido Snyder RN Heart Rate Source Monitor 05/18/2025 12:13 PM Candido Snyder RN Cardiac Rhythm A-Fib 05/18/2025 1:39 PM EST Candido Ballard RN MAP (mmHg) 89 05/18/2025 1:39 PM EST Candido Odonnell RN * Modified Marleny Question Answer Entry Date Author Activity 2 05/18/2025 1:39 PM EST Candido Odonnell RN Respiration 2 05/18/2025 1:39 PM Candido Snyder RN Hemodynamic Stability 2 05/18/2025 1:39 PM Candido Snyder RN Consciousness 2 05/18/2025 1:39 PM EST Candido Boggs RN Oxygen Saturation 2 05/18/2025 1:39 PM Candido Snyder RN Modified Marleny Score 14 05/18/2025 1:39 PM EST Candido Odonnell RN Pain 2 05/18/2025 1:39 PM Candido Snyder RN Emetic Symptoms 2 05/18/2025 1:39 PM EST Candido Castillo RN documented in this encounter Medications at Time of Discharge empagliflozin (Jardiance) 10 MG Take 1 tablet by mouth daily. 30 tablet 3 01/22/2025 ferrous sulfate 324 (65 Fe) MG EC tablet TAKE 1 TABLET BY MOUTH EVERY MORNING WITH BREAKFAST. DO NOT CHEW,CRUSH, OR SPLIT 01/13/2025 HYDROcodone-acetamino phen (Stow) 10-325 MG tablet Take 1 tablet by mouth 4 times a day as needed. Momelotinib Dihydrochloride 200 MG tabletIndications:Mye loproliferative disorder (CMS/HCC) Take 200 mg by mouth daily. 30 tablet 1 04/02/2025 rosuvastatin (Crestor) 10 MG tablet Take 1 tablet by mouth nightly. 90 tablet 3 02/12/2025 bumetanide (Bumex) 1 MG tablet Take 1 tablet by mouth daily. 30 tablet 10/10/2024 5 famotidine (Pepcid) 40 MG tablet Take 1 tablet by mouth every morning. 12/10/2024 5 gabapentin (Neurontin) 800 MG tablet Take 0.5 tablets by mouth in the morning and 0.5 tablets before bedtime. 10/10/2024 5 mupirocin (Bactroban) 2 % ointment 02/04/2025 5 ondansetron ODT (Zofran-ODT) 4 MG disintegrating tablet Dissolve 1 tablet on the tongue every 8 hours as needed for nausea or vomiting. 2025 5 documented as of this encounter Miscellaneous Notes * Post-Procedure Note - Mary Cardona APRN - 05/18/2025 1:00 PM EST Vascular and Interventional Radiology Brief Postprocedure Note Performed by: Mary Cardona APRN Line Dancer: KAIDEN Pre-operative Diagnosis: ascites Post-operative Diagnosis: same Type of Anesthesia: Local Description of Findings: ascites Technical/Surgical Procedures Used: image guided paracentesis Specimen Obtained: Yes, cell count Complications: None Estimated Blood Loss: none Procedure Events Event Event Time See detailed result report with images in PACS. The patient tolerated the procedure well without incident or complication and is in stable condition. * H&P - Mary Cardona APRN - 05/18/2025 1:00 PM EST 05/18/25 Patient: Noe Caraballo Date of : 1950 y.o. Chief Complaint: Presenting for paracentesis History of Present Illness: Noe Caraballo is a 74 y.o. male with a PMHx of atrial fibrillation, thrombocytopenia, ascites, HFrEF, HTN, pancreatitis, splenectomy, and cirrhosis, who presents today for outpatient paracentesis Review of Systems: 14 point ROS negative except as noted in HPI The following portions of the chart were reviewed this encounter and updated as appropriate: Past Medical History[1] Surgical History[2] Social History[3] Family History: Personally reviewed and noncontributory. Allergies[4] Current Medications[5] Objective: All laboratory, images, tracings, and vital sign data are personally reviewed unless otherwise noted. Vital Signs: Temp: [36.6 ??C (97.9 ??F)] 36.6 ??C (97.9 ??F) Heart Rate: [90] 90 Resp: [18] 18 BP: (114)/(83) 114/83 Weight: 89.2 kg (196 lb 10.4 oz) Body mass index is 33.76 kg/m??. LABS (PAST 18Labs in last 18 hours) CBC WBC ?? Hb ?? Plt ?? Hct ?? INR ?? PTT ?? Anti-Xa ?? BMP Na ?? Cl ?? BUN ?? Glu ?? K ?? Co2 ?? Cr ?? Ca ?? Mg ?? Phos ?? LFT AST ?? AlkPhos ?? T Prot ?? ALK ?? Bili ?? Alb ?? D.Bili ?? HOURS) Physical Exam: GENERAL: No acute distress EYES: PERRL; anicteric sclerae HENT: Atraumatic, moist mucous membranes RESP: Airway patent, Symmetric expansion; non labored. CARD: RRR Extremities: No edema, no cyanosis or clubbing; pulses palpable +2 GI: No organomegaly or masses; abdomen is soft, nontender and nondistended SKIN: Normal temperature, turgor and texture NEURO: Awake and following commands, moves all extremities, no focal deficits Radiographics/Diagnostics: Imaging personally reviewed and reviewed with attending. === 03/18/24 === CT ABDOMEN PELVIS W IV CONTRAST - Narrative - CLINICAL INDICATION: Abdominal pain, post-op TECHNIQUE: Multiple axial CT images were obtained from lung bases through pubic symphysis following administration of IV contrast, Omnipaque 300, 100 mL. Delayed images of abdomen and kidneys also obtained. Reformatted images in the coronal and sagittal planes were generated from the axial data set to facilitate diagnostic accuracy. Total DLP (Dose-Length Product): 556.70 mGy.cm. Please note: The reported value represents the total of one or more individual components during the CT acquisition on this date and at this time, and as such, the same value may appear in more than one CT report depending on the interpreting/reporting physicians. COMPARISON: 03/18/2024 FINDINGS: Lower Chest: No suspicious findings. Solid Abdominal Organs: Unremarkable liver and gallbladder. No suspicious renal mass lesions. No hydronephrosis. Status post splenectomy. No suspicious adrenal findings. No suspicious pancreatic findings. GI Tract/Mesentery/Peritoneum: No evidence of bowel obstruction. Stomach is decompressed. Small volume pneumoperitoneum is probably postoperative in nature. Moderate to large retained stool in the colon. No pneumatosis. Pelvic Viscera: No suspicious pelvic mass lesions. Lymph Nodes/Vasculature: No lymphadenopathy by CT size criteria. The aortoiliac vasculature is patent and normal in caliber. There is hyperdense material resembling a clot, likely an acute thrombosisin the splenic vein with near complete occlusion (series 3 image 113). Free Fluid:Large volume ascites with normal fluid density. Resolution of the process in hemoperitoneum. Musculoskeletal and Body Wall:Advanced degenerative change with partial fusion of the lumbar vertebra, similar to prior study. - Impression - Status post splenectomy with resolution of the pneumoperitoneum. Large volume ascites with simple fluid density. Near occlusive hyperdensity, likely an acute thrombosis in the splenic vein. Other findings as above. CRITICAL RESULT: No. COMMUNICATION: These findings were discussed with Dr. Hamilton on 03/27/2024 7:43 PM by Ashlee Jha MD via [employer] secure chat. Drafted by Ashlee Jha MD on 03/27/2024 7:32 PM Final report signed by Ashlee Jha MD on 03/27/2024 7:43 PM === 03/25/25 === XR CHEST 2 VIEWS - Narrative - CLINICAL INDICATION: SOA TECHNIQUE: XR CHEST 2 VIEWS COMPARISON: 01/19/2025 FINDINGS: Bilateral interstitial opacities with cephalization of the vasculature. Similar scattered linear atelectasis left midlung. Stable cardiac mediastinal contours. No pneumothorax or pleural effusion. Noacute osseous findings. - Impression - Findings suggestive of pulmonary edema. CRITICAL RESULT: No. COMMUNICATION: Per this written report. Preliminary report signed by Cirilo Noe M.D. on 03/25/2025 6:44 PM By electronically signing this report, I, the attending physician, attest that I have personally reviewed the images/data for the above examination(s) and agree with the final edited report. Drafted by Cirilo Noe M.D. on 03/25/2025 6:40 PM Final report signed by Tania Clement MD on 03/25/2025 7:41 PM Echo, Adult Transthoracic (TTE) Limited Result Date: 10/07/2024 Left Ventricle: Based on the indexed 2D volumes, the left ventricle is dilated in size. There is normal left ventricular myocardial thickness and mass. 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 There is a fibrocalcific structure in the LVOT, basal IVS that was noted onthe previous echocardiogram. The left ventricular systolic function is reduced. The LVEF is visually estimated at 30 - 35%. The diastolic function is abnormal. There is grade II (moderate) diastolic dysfunction. The left ventricular filling pressure is elevated. The inferolateral wall is hypokinetic. The anteroseptal, anterior and apical moody are akinetic. Right Ventricle: The right ventricular systolic function is normal. The estimated global right ventricular systolic function based upon thetricuspid annular plane of systolic excursion (TAPSE) is normal (>=17 mm). The estimated global right ventricular systolic function based upon the TDI maximal systolic velocity is reduced (<9.5cm/s). Compared to the most recently available prior study, and allowing for differences in image quality and technique, there is no significant interval change noted. Echo, Adult Transthoracic Complete Result Date: 09/26/2024 Left Ventricle: The left ventricle is not well visualized. After the administration of an ultrasound enhancing agent, the endocardial visualization was improved. The left ventricle is normal size. There is normal left ventricular myocardial thickness and mass. 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 No left ventricular mass or thrombus is seen. The left ventricular systolic function is moderately reduced. The LVEF is visually estimated at 30 - 35%. The diastolic function is abnormal. There is grade II (moderate) diastolic dysfunction. The left ventricular filling pressure is elevated. The inferolateral wall is hypokinetic. The anteroseptal, anterior and apical moody are akinetic. There is septal flattening in diastole consistent with right ventricular volume overload. Right Ventricle: The estimated right ventricular systolic pressure is >/= 52 mmHg. Left Atrium: The left atrial size is moderately increased with an indexed volume of 42-48 mL/m2. Systolic flow reversal in the pulmonary veins. Mitral Valve: The structure and motion of the mitral valve leaflet suggest that the MR etiology is most likely due to type IIIc (systolic restriction - asymmetric) Clarice classification. There is restricted motion of the posterior leaflet. The leaflets appear thickened. There is mild mitral annular calcification. There is moderate to severe mitral regurgitation with an eccentric posteriorly directed jet, which is consistent with a restricted posterior leaflet. The mitral regurgitation is due to secondary pathology (underlying cardiomyopathy). IVC/SVC: Based on the IVC size and respiratory variation, the estimated right atrial pressure is 15mmHg. Pericardium: No pericardial effusion. Echocardiographic findings are not suggestive of constrictive pericarditis. Compared to the most recently available prior study dated 03/19/24, and allowing for differences in image quality and t echnique, the MR is worse and the RVSP is higher. Assessment & Plan: Ascites Myeloproliferative syndrome post chemotherapy - Previously underwent biweekly paracentesis outpatient with Interventional Radiology - INR ??, Plt ?? - VSS, Afebrile PLAN: - Will perform paracentesis - Will consent prior to procedure Thank you for allowing us to participate in the care of this patient. Mary Cardona, FISCAL ASSISTANT Interventional Radiology [phone] [1] Past Medical History: Diagnosis Date ACC/AHA stage C chronic systolic heart failure Acquired absence of spleen 07/03/2024 Acute kidney failure, unspecified (CMS/HCC) 03/23/2024 Anemia Ascites 03/28/2024 Atrial fibrillation (CMS/HCC) 03/22/2024 CAD (coronary artery disease) Chronic back pain Dental caries Dental disease Hypertension Idiopathic acute pancreatitis 10/01/2022 Major laceration of spleen 03/18/2024 Scan concerning for sentinel bleed to spleen - 03/18: IR embolization - 03/18: splenectomy - 03/19:return to OR for bleeding - 03/20 relook lap, closed - Will need to remove ritchie ~04/03 if appropriate; Will plan to remove ritchie post para and apply steri strips on 04/08 08/02 distention - Vaccines given on 03/24; will need additional vaccines in 8 weeks (~05/19) Mixed dyslipidemia Myeloproliferative disorder (CMS/HCC) 03/22/2023 Other cirrhosis of liver (CMS/HCC) 12/10/2022 Paroxysmal atrial fibrillation (CMS/HCC) Splenomegaly 03/18/2024 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, lumbar region 01/01/2024 Spontaneous bacterial peritonitis 06/04/2024 On ppx Cipro [2] Past Surgical History: Procedure Laterality Date PARACENTESIS biweekly via IR SPLENECTOMY [3] Social History Tobacco Use Smoking status: Never Passive exposure: Never Smokeless tobacco: Never Vaping Use Vaping status: Never Used Substance Use Topics Alcohol use: Never Drug use: Never [4] No Known Allergies [5] Current Outpatient Medications: bumetanide (Bumex) 1 MG tablet, Take 1 tablet by mouth daily., Disp: 30 tablet, Rfl: 0 empagliflozin (Jardiance) 10 MG, Take 1 tablet by mouth daily., Disp: 30 tablet, Rfl: 3 famotidine (Pepcid) 40 MG tablet, Take 1 tablet by mouth every morning., Disp: , Rfl: ferrous sulfate 324 (65 Fe) MG EC tablet, TAKE 1 TABLET BY MOUTH EVERY MORNING WITH BREAKFAST. DO NOT CHEW,CRUSH, OR SPLIT, Disp: , Rfl: gabapentin (Neurontin) 800 MG tablet, Take 0.5 tablets by mouth in the morning and 0.5 tablets before bedtime. (Patient not taking: Reported on 04/13/2025), Disp: , Rfl: HYDROcodone-acetaminophen (Stow) 7.5-325 MG tablet, Take 1 tablet by mouth 4 times a day as needed., Disp: , Rfl: Momelotinib Dihydrochloride 200 MG tablet, Take 200 mg by mouth daily. (Patient not taking: Reported on 04/13/2025), Disp: 30 tablet, Rfl: 1 mupirocin (Bactroban) 2 % ointment, , Disp: , Rfl: ondansetron ODT (Zofran-ODT) 4 MG disintegrating tablet, Dissolve 1 tablet on the tongue every 8 hours as needed for nausea or vomiting., Disp: , Rfl: rosuvastatin (Crestor) 10 MG tablet, Take 1 tablet by mouth nightly., Disp: 90 tablet, Rfl: 3 documented in this encounter Plan of Treatment Upcoming Encounters Date Type Department Care Team (Late st Contact Info) Description 07/05/2025 3:00 PM EST Clinical Support [facility] [address] [place] [phone] 07/05/2025 3:30 PM EST Office Visit [facility] [address] [place] [phone] Vaishnavi Almaraz MD [address] [facility] [address] [place] [phone] 09/13/2025 10:30 AM EDT Clinical Support [facility] Hematology/BMT and Cellular Therapy Program [address] [place] [phone] 09/13/2025 11:00 AM EDT Office Visit [facility] Hematology/BMT and Cellular Therapy Program [address] [place] [phone] Vaishnavi Almaraz MD [address] [facility] [address] [place] [phone] documented as of this encounter Procedures Procedure Name Priority Date/Time Associated Diagnosis Comments US GUIDED ABDOMINAL PARACENTESIS Routine 05/18/2025 1:35 PM EST Abdominal ascites BODY FLUID CELL COUNT W/ MANUAL DIFFERENTIAL Routine 05/18/2025 1:21 PM EST BODY FLUID, CYTOSPIN, PATHOLOGIST INTERPRETATION Routine 05/18/2025 1:21 PM EST TOTAL PROTEIN, PERITONEAL FLUID Routine 05/18/2025 1:21 PM EST documented in this encounter Results * US Guided Abdominal Paracentesis (05/18/2025 1:35 PM EST) Anatomical Region Laterality Modality Abdomen Ultrasound Impressions 05/18/2025 9:11 PM EST Technically successful US-guided paracentesis. A total of 2 liters of clear yellow fluid was removed. A sample of the fluid was sent for laboratory analysis. CRITICAL RESULT: No. COMMUNICATION: Per this written report. Preliminary report signed by Mary Cardona APRN on 05/18/2025 2:08 PM By electronically signing this report, I, the attending physician, attest that I was not present for the procedure(s) but agree with the final edited report. Drafted by SARA Weiss on 05/18/2025 2:07 PM Final report signed by Celia Ramsay MD on 05/18/2025 9:11 PM Narrative 05/18/2025 9:11 PM EST CLINICAL INDICATION: 74 y.o. male with a PMH of atrial fibrillation, thrombocytopenia, ascites, HFrEF, HTN, pancreatitis, splenectomy, and cirrhosis who presents today for outpatient paracentesis. TECHNIQUE: Sales Center Associate: Mary Cardona APRN Secondary Spanish Professor: None. Rad Dose: NA Medications: Continuous physiologic monitoring provided by a qualified healthcare professional. Administered: 1% Lidocaine SQ. Antibiotics: NA Time out: 1325 Procedure: After discussion of risks and benefits, informed written consent was obtained. Appropriate time out was done to confirm patient identity and planned procedure. The patient was placed supine and initial limited ultrasound scan performed to begin an Ultrasound Guided Paracentesis. Strict hand hygiene protocol was observed with the operators doing a surgical hand scrub. All personnel in the room were attired in surgical hat and mask. The operators were in surgical hat, mask, sterile gloves and gowns. The site was prepped with 2% chlorhexidine for cutaneous antisepsis, followed by sterile barrier draping. Limited quadrant ultrasound was performed, which showed an anechoic fluid collection in the left lower quadrant. 1% lidocaine used for local analgesia. Under real time US guidance, a 6 Fr safety-centesis catheter was advanced into the ascites. Ultrasound images were sent to permanent storage in PACS. A total of 2 liters of clear yellow fluid was removed. The centesis catheter was removed and occlusive dressing applied. The patient tolerated the procedure well. The patient left the IR suite in stable condition. COMPARISON: None. FINDINGS: Moderate volume ascites. COMPLICATION: No. Procedure Note Celia Ramsay MD - 05/18/2025 CLINICAL INDICATION: 74 y.o. male with a PMH of atrial fibrillation, thrombocytopenia, ascites,HFrEF, HTN, pancreatitis, splenectomy, and cirrhosis who presents todayfor outpatient paracentesis. TECHNIQUE: Sales Center Associate: Mary Carodna APRN Secondary Spanish Professor: None. Rad Dose: NA Medications: Continuous physiologic monitoring provided by a qualifiedhealthcare professional. Administered: 1% Lidocaine SQ. Antibiotics: NA Time out: 1325 Procedure: After discussion of risks and benefits, informed written consent wasobtained. Appropriate time out was done to confirm patient identity andplanned procedure. The patient was placed supine and initial limitedultrasound scan performed to begin an Ultrasound Guided Paracentesis. Strict hand hygiene protocol was observed with the operators doing asurgical hand scrub. All personnel in the room were attired in surgicalhat and mask. The operators were in surgical hat, mask, sterile glovesand gowns. The site was prepped with 2% chlorhexidine for cutaneousantisepsis, followed by sterile barrier draping. Limited quadrant ultrasound was performed, which showed an anechoic fluidcollection in the left lower quadrant. 1% lidocaine used for localanalgesia. Under real time US guidance, a 6 Fr safety-centesis catheterwas advanced into the ascites. Ultrasound images were sent to permanentstorage in PACS. A total of 2 liters of clear yellow fluid was removed.The centesis catheter was removed and occlusive dressing applied. The patient tolerated the procedure well. The patient left the IR suitein stable condition. COMPARISON: None. FINDINGS: Moderate volume ascites. COMPLICATION: No. IMPRESSION: Technically successful US-guided paracentesis. A total of 2 liters of clear yellow fluid was removed. A sample of the fluid was sent for laboratory analysis. CRITICAL RESULT: No. COMMUNICATION: Per this written report. Preliminary report signed by Mary Cardona APRN on 05/18/2025 2:08 PM By electronically signing this report, I, the attending physician, attestthat I was not present for the procedure(s) but agree with the finaledited report. Drafted by SARA Weiss on 05/18/2025 2:07 PM Final report signed by Celia Ramsay MD on 05/18/2025 9:11 PM us Mary Cardona APRN IMG US PROCEDURES Final Resu lt * Body fluid, cytospin, pathologist interpretation (05/18/2025 1:21 PM EST) Specimen Type Body Fluid LAB HEMATOLOGY METHOD 05/19/2025 11:16 AM EST [facility] Specimen Source, Body Fluid Peritoneal Fluid LAB HEMATOLOGY METHOD 05/19/2025 11:16 AM EST [facility] Clinical Diagnosis, Body Fluid Ascites secondary to decompensated cirrhosis with history of myelofibrosis and splenectomy LAB HEMATOLOGY METHOD 05/19/2025 11:16 AM EST [facility] Interpretation , Body Fluid No morphologic evidence of malignancy. Basophilia and eosinophilia and a mixed inflammatory background. Occasional left-shifted granulocytes identified. A resident was involved in the service. I attest I examined the relevant preparations for the specimens and confirmed the diagnosis or interpretation. 05/19/2025 11:16 AM EST [facility] Pathologist Signature, Body Fluid 05/19/2025 11:16 AM EST [facility] Comment:Reviewed by: Liliam Feliciano MD LAB CP ASR DISCLAIMER Yes 05/19/2025 11:16 AM EST [facility] Body Fluid Peritoneal fluid / Unknown Non-blood Collection / Unknown 05/18/2025 1:21 PM EST 05/18/2025 2:49 PM EST us Mary Cardona APRN LAB BODY FLUIDS AND STOOLS O RDERABLES Final Result [facility] [address] [place] [address] * Protein - Ascites (05/18/2025 1:21 PM EST) Total Protein, Fluid 1.8 g/dL 05/18/2025 6:41 PM EST [facility] Ascites Peritoneal cavity structure / Unknown 05/18/2025 1:21 PM EST 05/18/2025 2:49 PM EST Narrative [facility] - 05/18/2025 6:41 PM EST This test was developed and its performance characteristics determined by [facility]. The [place] Food and Drug Administration has not approved or cleared this test. However, FDA clearance or approval is not currently required for clinical use. The results are not intended to be used as the sole means for clinical diagnosis or patient management decisions. us Mary N Cheeks FISCAL ASSISTANT LAB BODY FLUIDS AND STOOLS O RDERABLES Final Result [facility] [address] [place] [address] * (ABNORMAL) Body Fluid Cell Count With Diff - Ascites (05/18/2025 1:21 PM EST) Color, Body fluid Yellow LAB HEMATOLOGY METHOD 05/18/2025 6:16 PM EST [facility] Appearance, Body fluid Cloudy(A) LAB HEMATOLOGY METHOD 05/18/2025 6:16 PM EST [facility] Volume, Body fluid 30.0 cc LAB HEMATOLOGY METHOD 05/18/2025 6:16 PM EST [facility] Fluid Container Specimen received in miscellaneous container LAB HEMATOLOGY METHOD 05/18/2025 6:16 PM EST [facility] Red Blood Cell Count, Body fluid 781 uL LAB HEMATOLOGY METHOD 05/18/2025 6:16 PM EST [facility] Comment:Test performed by philippe munguia method. Total Nucleated Cell Count, Body fluid 1,106 uL LAB HEMATOLOGY METHOD 05/18/2025 6:16 PM EST [facility] Neutrophils %, Body fluid 29 % LAB HEMATOLOGY METHOD 05/18/2025 6:16 PM EST [facility] Lymphocytes %, Body fluid 43 % LAB HEMATOLOGY METHOD 05/18/2025 6:16 PM EST [facility] Monocytes/Macr ophages %, Body fluid 10 % LAB HEMATOLOGY METHOD 05/18/2025 6:16 PM EST [facility] Eosinophils %, Body fluid 5 % LAB HEMATOLOGY METHOD 05/18/2025 6:16 PM EST [facility] Lining/Mesothe lial Cells %, Body fluid 0 % LAB HEMATOLOGY METHOD 05/18/2025 6:16 PM EST [facility] Neutrophils Absolute (PMN), Body fluid 321 uL LAB HEMATOLOGY METHOD 05/18/2025 6:16 PM EST [facility] Lymphocytes Absolute, Body fluid 476 uL LAB HEMATOLOGY METHOD 05/18/2025 6:16 PM EST [facility] Monocytes/Macr ophages Absolute, Body fluid 111 uL LAB HEMATOLOGY METHOD 05/18/2025 6:16 PM EST [facility] Eosinophils Absolute, Body fluid 55 uL LAB HEMATOLOGY METHOD 05/18/2025 6:16 PM EST [facility] Basophils Absolute, Body fluid 144 uL LAB HEMATOLOGY METHOD 05/18/2025 6:16 PM EST [facility] Lining/Mesothe lial Cells Absolute, Body fluid 0 uL LAB HEMATOLOGY METHOD 05/18/2025 6:16 PM EST [facility] Basophils %, Body fluid 13 % LAB HEMATOLOGY METHOD 05/18/2025 6:16 PM EST [facility] Body Fluid Peritoneal fluid / Unknown Non-blood Collection / Unknown 05/18/2025 1:21 PM EST 05/18/2025 2:49 PM EST us Mary N Cheeks FISCAL ASSISTANT LAB BODY FLUIDS AND STOOLS ORDERABLES NO SPECIMEN TYPE/SOURCE Final Result Performing Organization Address City/State/[facility] Co de Phone Number [facility] [address] [place] [address] documented in this encounter Visit Diagnoses Diagnosis Other ascites- Primary documented in this encounter Administered Medications Inactive Administered Medications - up to 3 most recent administrations Medication Order MAR Action Action Date Dose Rate Site lidocaine 0.9% in sodium bicarbonate (buffered lidocaine) solution solution As needed, Starting on Sat05/18/25 at 1319, Until Sat05/18/25 at 1319, Routine, Intraprocedure Given 05/18/2025 1:19 PM EST 10 mL documented in this encounter Additional Health Concerns Assessment Noted Time PHQ-9 Depression Total Score: 8 02/06/20 25 8:29 AM EDT A fall risk assessment has been complete d for the patient 03/15/2025 10:46 AM EDT A Body Mass Index follow-up plan has been documented for the patient 04/13/2025 10:57 AM EDT documented as of this encounter Care Teams Director Business Development Relationship Specialty Start Date End Date Debbie Medina MD [address] [facility] [address] [place] [address] PCP - General 09/28/24 Lee Collier MD [address] [place] [phone] Internal Medicine 10/18/23 Kristopher Benitez, RN None None Registered Nurse Hematology and Oncology 03/15/25 documented as of this encounter
--- OUTSIDE RECORDS SUMMARY | 2025-05-20 10:51 | XMS_ITS | Encounter Summary ---
Author Organization Healthcare Address [address] 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 Role Phone Lee Collier MD Unavailable [phone] Debbie Medina MD Primary Care Provider + [phone] Kristopher Benitez RN Unavailable Unavailable Bekah Flores RN Unavailable Unavailable Reason for Visit * Reason Comments Multiple Complaints * Auth/Cert (Routine) Specialty Diagnoses / Procedures Referred By Contac t Referred To Contact Diagnoses SBP (spontaneous bacterial peritonitis) Susanne Duke MD [address] [place] [address] Phone: tel: fax: [facility] [address] [place] [address] Phone: tel: Referral ID Status Reason Start Date Expiration Date Visits Re quested Visits Authorized [id number] 1 1 Encounter Details Date Type Department Care Team (Latest Contact Info) Description 05/20/2025 10:51 AM EST - 05/28/2025 11:26 AM EST Hospital Encounter [facility] [address] [place] [address] Susanne Duke MD [address] [place] [address] Erika Solorzano MD [address] [place] [address] Daniel Corbett MD [address] [place] [phone] SBP (spontaneous bacterial peritonitis) (Primary Dx) Discharge Disposition: Home or Self Care Social [...] How often do you attend chur or quaker services? More than 4 times per year 10/16/2022 Do you belong to any clubs o r organizations such as denominational groups, unions, fraternal or athletic groups, or [...] afraid of your partner or ex-partner? No 05/21/2025 Within the last year, have y ou been humiliated or emotionally abused in other ways by your partner or ex-partner? No Within the last year, have y ou been kicked, hit, slapped, or otherwise physically hurt by your partner or ex-partner? No 05/21/2025 Within the last year, have y ou been raped or forced to have any kind of sexual activity by your partner or ex-partner? No 05/21/2025 Hunger Vital Sign Answer Date Recorded Within the past 12 months, y ou worried that your food would run out before you got the money to buy more. Never true 05/21/20 25 Within the past 12 months, t he food you bought just didn't last and you didn't have money to get more. Never true 05/21/2025 PRAPARE - Transportation Answer Date Re corded In the past 12 months, has l ack of transportation kept you from medical appointments or from getting medications? No 05/02 In the past 12 months, has l ack of transportation kept you from meetings, work, or from getting things needed for daily living? No 05/21/2025 Housing Stability Vital Sign Answer Andrew e Recorded In the last 12 months, was t here a time when you were not able to pay the mortgage or rent on time? No 05/21/2025 In the past 12 months, how m any times have you moved where you were living? 0 05/21/2025 At any time in the past 12 m [facility], were you homeless or living in a detention (including now)? No 05/21/[address] [facility] Utilities Answer Date Recorded In the past 12 months has th e electric, gas, oil, or water company threatened to shut off services in your home? No 05/21/2025 CAGE ASSESSMENT Answer Date Recorded Cage unable [...] drink first t july in the morning (EYE-BASS SINGER) to steady your nerves or to get rid of a hangover? 0 01/19/2025 CAGE Questionnaire Score 0 025 PHQ-2A Answer Date Recorded Patient Health Questionnaire-2 Score 0 03/22/2023 Sex and Gender Information Value Date Recorded Sex Assigned at Male 10/10/2024 1:42 PM EDT Legal Sex Male 6:11 PM EDT Gender Identity Not on file Sexual Orientation Not on file documented as of this encounter Last Filed Vital Signs Vital Sign Reading Time Taken Comments Blood Pressure 113/80 05/28/2025 7:55 AM EST Pulse 86 05/28/2025 7:55 AM EST Temperature 36.6 C (97.9 F) 05/28/2025 7:55 AM EST Respiratory Rate 14 05/28/2025 6:59 AM EST Oxygen Saturation 92% 05/28/2025 7:55 AM EST Inhaled Oxygen Concentration - - Weight 90.6 kg (199 lb 11.8 oz) 05/28/2025 5:59 AM EST Height 170.2 cm (5' 7 ) 05/20/2025 11:0 5 AM EST Body Mass Index 31.28 05/20/2025 11:05 AM EST documented in this encounter Functional Status * Result of Injury Answer Date of Assessment Author No 05/27/2025 8:40 PM EST Akanksha Molina RN * Work-Related Injury Answer Date of Assessment Author No 05/27/2025 8:40 PM EST Akanksha Molina RN * OT Therapeutic Procedures Time Entry Question Answer Date of Assessment Author Therapeutic Activity Time Entry 24 10:06 AM EST Nellie Farmer * HEENT Question Answer Date of Assessment Author KALYANI (CELIO) X 05/28/2025 8:00 AM EST Saadia Spain RN R Ear Mildly impaired hearing 05/28/2025 8:00 A M EST Saadia Lazcano RN L Ear Mildly impaired hearing 05/28/2025 8:00 A M Saadia Schmitt RN Teeth Missing teeth 05/28/2025 8:00 AM Saadia Beltran RN Head and Face Swelling 05/28/2025 8:00 AM Saadia Beltran RN * Presentation Question Answer Date of Assessment Author Post-Session Comments Patient left with all needs within reach and positioned for comfort 05/25/2025 10:01 AM Darius Woodruff * BMI (Calculated) Answer Date of Assessment Author 31.3 05/28/2025 5:59 AM Akanksha Hooker RN * Percent Excess Weight Loss Answer Date of Assessment Author 0 05/20/2025 11:05 AM Antony Forbes RN * Total Weight Change Percent Answer Date of Assessment Author 2 05/28/2025 5:59 AM Akanksha Hooker RN * Weight Change Since Preop Answer Date of Assessment Author 90.58 05/28/2025 5:59 AM Akanksha Hooker RN * Initial Excess Weight Answer Date of Assessment Author -67.13 05/20/2025 11:05 AM Antony Forbes RN * IBW in lbs (Bariatric) Answer Date of Assessment Author 148 05/20/2025 11:05 AM Antony Forbes RN * Weight Change Since Last Visit Answer Date of Assessment Author 3 05/28/2025 5:59 AM Akanksha Hooker RN * IBW in kg (Bariatric) Answer Date of Assessment Author 67.13 05/20/2025 11:05 AM Antony Forbes RN * Percent of IBW Answer Date of Assessment Author 4,949.75 05/20/2025 11:05 AM Antony Forbes RN * EBW (kg) Answer Date of Assessment Author 3,320.87 05/20/2025 11:05 AM Antony Forbes RN * EBW (lbs) Answer Date of Assessment Author 3,313.52 05/20/2025 11:05 AM Antony Forbes RN * Activity Management Answer Date of Assessment Author activity adjusted per tolera nce;activity encouraged 05/28/2025 10:14 AM Saadia Schmitt RN * Progress Answer Date of Assessment Author improving 05/28/2025 10:14 AM Saadia Schmitt RN * Infection Management Answer Date of Assessment Author aseptic technique maintained 05/28/2025 10:14 AM Saadia Schmitt RN * Activity Assistance Provided Answer Date of Assessment Author assistance, stand-by 05/28/2025 10:14 AM Saadia Beaver RN * Adaptive Equipment Use Answer Date of Assessment Author used with assistance 05/28/2025 10:14 AM Saadia Beaver RN * Supportive Measures Answer Date of Assessment Author active listening utilized;re laxation techniques promoted;self-care encouraged;verbalization of feelings encouraged 05/27/2025 10:05 PM Akanksha Hooker RN * Oral Nutrition Promotion Answer Date of Assessment Author physical activity promoted 05/27/2025 10:05 PM Akanksha Subramanian RN * Pressure Reduction Techniques Answer Date of Assessment Author frequent weight shift encouraged 05/28/2025 10:1 4 AM Saadia Schmitt RN * Safety Promotion/Fall Prevention Answer Date of Assessment Author activity supervised;room org anization consistent;safety round/check completed;fall prevention program maintained;clutter-free environment maintained;lighting adjusted;nonskid shoes/slippers when out of bed 05/28/2025 10:14 AM Saadia Schmitt RN * Pain Management Interventions Answer Date of Assessment Author medication (see MAR);quiet e nvironment facilitated 05/28/2025 10:14 AM Saadia Schmitt RN * Fever Reduction/Comfort Measures Answer Date of Assessment Author lightweight bedding;lightweight clothing 025 10:14 AM Saadia Schmitt RN * Sensory Stimulation Regulation Answer Date of Assessment Author care clustered;lighting decreased 05/27/2025 10: 05 PM Akanksha Hooker RN * Complementary Therapy Answer Date of Assessment Author music therapy provided 05/26/2025 10:40 AM Murtaza Kaminski RN * Trust Relationship/Rapport Answer Date of Assessment Author care explained;choices provi ded;emotional support provided;thoughts/feelings acknowledged;questions encouraged;questions answered 05/28/2025 10:14 AM Saadia Schmitt RN * Pressure Reduction Devices Answer Date of Assessment Author positioning supports utilized 05/28/2025 10:14 A M Saadia Schmitt RN * Diversional Activities Answer Date of Assessment Author television 05/27/2025 10:05 PM Akanksha Hooker RN * Nutrition Interventions Answer Date of Assessment Author food preferences provided 05/27/2025 10:05 PM Akanksha Maradiaga RN * Infection Prevention Answer Date of Assessment Author equipment surfaces disinfect ed;hand hygiene promoted;single patient room provided;environmental surveillance performed;rest/sleep promoted 05/27/2025 10:05 PM Akanksha Hooker RN * Outcome Evaluation Answer Date of Assessment Author pt agrees with POC 05/27/2025 10:05 PM Akanksha Stevenson RN * Bowel Elimination Promotion Answer Date of Assessment Author adequate fluid intake promot ed;ambulation promoted;commode/bedpan at bedside 05/27/2025 10:05 PM Akanksha Hooker RN * Spiritual Activities Assistance Answer Date of Assessment Author affirmation provided 05/27/2025 10:05 PM Akanksha Valiente RN * Sleep/Rest Enhancement Answer Date of Assessment Author awakenings minimized;regular sleep/rest pattern promoted;natural light exposure provided 05/27/2025 10:05 PM Akanksha Hooker RN * Medication Review/Management Answer Date of Assessment Author medications reviewed 05/28/2025 10:14 AM Saadia Beaver RN * Skin Protection Answer Date of Assessment Author incontinence pads utilized 05/28/2025 10:14 AM Saadia Palacios RN * Self-Care Promotion Answer Date of Assessment Author independence encouraged;meal set-up provided;BADL personal objects within reach 05/28/2025 10:14 AM Saadia Schmitt RN * Isolation Precautions Answer Date of Assessment Author precautions maintained 05/28/2025 10:14 AM Saadia Andrew RN * Safety Interventions Question Answer Date of Assessment Author Safety Precautions/Falls Reduction treatment room near department station;fall reduction program maintained 05/20/2025 11:10 AM Ligia Forbes RN All Alarms alarm(s) activated a nd audible 05/20/2025 11:10 AM Ligia Forbes RN * General Emergency Care CPG Interventions Question Answer Date of Assessment Author Coping Interventions questions answered;reassurance provided;education/info rmation provided;emotional support provided;safe, supportive environment facilitated;care explained to patient/family prior to performing 05/20/2025 11:10 AM Ligia Forbes RN General Care Management calm environment promoted;family presence promoted;normothermia promoted;positioned for comfort;pain relief monitored 05/20/2025 11:10 AM Ligia Forbes RN * Activity and Hygiene Care Question Answer Date of Assessment Author Assistive Device Utilized lift device 05/23/2025 9:22 AM Kajal Eldridge RN * Acuity/Destination Question Answer Date of Assessment Author Patient Acuity 3 05/20/2025 11:10 AM Ligia Fowler RN * Weight Change 24 hrs Answer Date of Assessment Author 4.1 05/28/2025 5:59 AM Akanksha Hooker RN * Precautions Question Answer Date of Assessment Author Left Lower Extremity Weight Bearing Status WBAT 05/21/2025 1:32 PM Darius Woodruff Right Lower Extremity Weight Bearing Status WBAT 05/21/2025 1:32 PM Darius Woodruff Medical Precautions Fall precautions 05/21/2025 1:32 P M Darius Woodruff Right Upper Extremity Weight Bearing Status WBAT 05/21/2025 1:32 PM Darius Woodruff Left Upper Extremity Weight Bearing Status WBAT 05/21/2025 1:32 PM Darius Woodruff * Participants in Care Question Answer Date of Assessment Author Family/Caregiver Present N 05/25/2025 10:06 AM Nellie Fisher * Presentation Question Answer Date of Assessment Author Lines and Tubes Intravenous access 05/25/2025 10:06 AM Nellie Fisher Pre-Session Supine;Head of bed elevated;Lines intact 05/25/2025 10:06 AM Nellie Fisher Post-Session Sitting in chair;Lory es intact;Chair alarm;Call light in reach 05/25/2025 10:06 AM Nellie Fisher * CARLOSM Question Answer Date of Assessment Author CARLOS JOHNSON Daily Mobility Score 8 05/25/2025 10 :01 AM Darius Woodruff * Bed Mobility Exam: Scooting/Bridging Question Answer Date of Assessment Author Level of Jerome Stand-by assist 05/25/2025 10:01 AM Darius Woodruff Physical/Nonphysical Assist Supervision 05/25/2025 10 :01 AM Darius Woodruff * Bed Mobility Exam: Supine to Sit Question Answer Date of Assessment Author Level of Jerome Stand-by assist 05/25/2025 10:06 AM EST Marleny, Nellie Physical/Nonphysical Assist Supervision 05/25/2025 10 :06 AM EST [place] Nellie * Transfer Exam: Sit to stand Question Answer Date of Assessment Author Level of Jerome Stand-by assist 05/25/2025 10:06 AM EST Marleny, Nellie Physical/Nonphysical Assist Supervision 05/25/2025 10 :06 AM EST [place], Nellie Assistive Device Walker, rolling 05/25/2025 10:[address] Nellie Farmer * Transfer Exam: Stand to Sit Question Answer Date of Assessment Author Level of Jerome Stand-by assist 05/25/2025 10:06 AM EST [place], Nellie Physical/Nonphysical Assist Supervision 05/25/2025 10 :06 AM EST Marleny, Nellie Assistive Device Walker, rolling 05/25/2025 10:[address] [place], Nellie * Transfer Exam: Bed to Chair/Chair to Bed Question Answer Date of Assessment Author Level of Jerome Stand-by assist 05/25/2025 10:06 AM EST [place], Nellie Physical/Nonphysical Assist Supervision 05/25/2025 10 :06 AM EST Marleny, Nellie Assistive Device Walker, rolling 05/25/2025 10:[address] [place], Nellie * UE Dressing Question Answer Date of Assessment Author UE Dressing Where Assessed Edge of bed 05/21/2025 10: 40 AM KIKO Farmer Nellie UE Dressing Level of Assistance Minimum assistance 05/21/2025 10:40 AM EST [place], Nellie * Lower Extremity Dressing Question Answer Date of Assessment Author LE Dressing Where Assessed Edge of bed 05/25/2025 10: 06 AM Nellie Fisher Pants Level of Assistance Minimum assistance 10:40 AM Nellie Fisher Sock Level of Assistance Minimum assistance 05/25/2025 10:06 AM Nellie Fisher * Toileting Question Answer Date of Assessment Author Toileting Interventions pt continues to use purewick system for urination but does display functional capacity to use urinal, BSC or walk to bathroom 05/25/2025 10:06 AM Nellie Fisher * General Question Answer Date of Assessment Author Next PT Re-Assessment Date [id number] 05/21/2025 1:33 PM Darius Woodruff Patient/Family Goals Statement Patient stated desire to return home 05/21/2025 1:33 PM Darius Woodruff * Plan Question Answer Date of Assessment Author Predicted Duration of Therapy 2 weeks 05/21/2025 1:32 PM Darius Woodruff Discharge Recommendation Home with assistance 1:32 PM Darius Woodruff Equipment Recommended Patient owns appropriate equipment 05/21/2025 1:32 PM Darius Woodruff Planned PT Interventions Balance trainin g;Bed mobility training;Gait training;Transfer training;Strengthening; Functional Mobility 05/21/2025 1:32 PM Darius Woodruff Therapy Frequency 2 - 5 times per week 1:32 PM Darius Woodruff * PT Assessment Question Answer Date of Assessment Author Activity Limitations Inability to ambula te independently;Inability to transfer independently;Inability to complete ADLs independently 05/21/2025 1:32 PM Darius Woodruff Participation Restrictions Self-care;Home management;Community leisure 05/21/2025 1:32 PM Darius Woodruff History Profile 1 - 2 personal facto rs and/or comorbidities 05/21/2025 1:32 PM Darius Woodruff Impairments Impaired balance;Imp aired functional mobility/transfers;Impaire d locomotion 05/21/2025 1:32 PM Darius Woodruff Diagnosis Impaired functional mobility 05/21/2025 1:32 PM Darius Woodruff Clinical Presentation Evolving clinical presentation with changing characteristics 05/21/2025 1:32 PM Darius Woodruff Clinical Decision Making Moderate complexity 1:32 PM Darius Woodruff Rehab Potential Good, to achieve sta kalyani therapy goals 05/21/2025 1:32 PM Darius Woodruff * Ambulation Question Answer Date of Assessment Author Distance 300 ft. 05/25/2025 10:01 AM Darius Smith Device Rolling walker 05/25/2025 10:01 AM Darius Osorio Assistance Standby assist 05/25/2025 10:01 AM Darius Osorio Ambulation Comments Patient demonstrates decreased gait speeed and agustin with no loss of balance 05/25/2025 10:01 AM Darius Woodruff * Plan of Care Reviewed With Answer Date of Assessment Author patient 05/28/2025 10:14 AM Saadia Schmitt RN * Head of Bed (HOB) Positioning Answer Date of Assessment Author HOB elevated 05/28/2025 10:14 AM Saadia Schmitt, DEANNA * Pressure Injury Prevention (PIP) Interventions Question Answer Date of Assessment Author Pressure Reducing Devices Pillow 05/28/2025 8:00 AM Saadia Schmitt RN Bed Type Acute Care Bed 05/28/2025 8:00 AM Saadia Beaver, DEANNA * Behavioral Expectations Question Answer Date of Assessment Author Behavioral Expectations revi ewed with patient/guardian and family/partner in care? Yes 05/20/2025 9:01 PM Robin Ortega RN * Vital Signs Question Answer Date of Assessment Author BP 113/80 05/28/2025 7:55 AM KIKO rosenthal, Doc Flowsheet In Temp 97.9 05/28/2025 7:55 AM EST Mike rosenthal, Doc Flowsheet In Pulse 86 05/28/2025 7:55 AM KIKO rosenthal, Doc Flowsheet In MAP (mmHg) 91 05/28/2025 7:55 AM EST Mike rosenthal, Doc Flowsheet In * Oxygen Therapy Question Answer Date of Assessment Author SpO2 92 05/28/2025 7:55 AM KIKO rosenthal, Nain Flowsheet In Oximetry Probe Site Changed No 05/20/2025 3:03 PM Anders Moran CNA Oxygen Therapy None 05/28/2025 8:00 AM Saadia Beaver, DEANNA Oximetry Probe Site Location Left Digit 05/20/2025 8:10 PM EST Bao Mercado Raheem Maciel NA * Height and Weight Question Answer Date of Assessment Author Weight 3195.79 05/28/2025 5:59 AM Akanksha Stevenson RN BSA (Calculated - sq m) 2.07 05/28/2025 5:59 A M Akanksha Hooker RN BMI (Calculated) 31.28 05/28/2025 5:59 AM Akanksha Jamil RN * Vitals Question Answer Date of Assessment Author Resp 14 05/28/2025 6:59 AM Akanksha Stevenson RN Heart Rate Source Monitor 05/28/2025 2:13 AM Akanksha Hooker RN * Neurological Question Answer Date of Assessment Author Neuro (WDL) WDL 05/28/2025 4:00 AM Akanksha Stevenson RN * Cardiac Question Answer Date of Assessment Author Cardiac Regularity Regular 05/28/2025 4:00 AM Akanksha Hooker RN Cardiac (WD) WDL 05/28/2025 4:00 AM Akanksha Cruz RN * Vocational Horticulture Instructor Question Answer Date of Assessment Author Telemetry Audible No 05/26/2025 4:00 PM Murtaza Garcia RN Telemetry Alarms Set No 05/26/2025 4:00 PM Murtaza Banks RN Bedside Vocational Horticulture Instructor On No 05/26/2025 4:0 0 PM Murtaza Garcia RN Bedside Cardiac Audible No 05/26/2025 4:00 P M Murtaza Garcia RN Bedside Cardiac Alarms Set No 05/26/2025 4:0 0 PM Murtaza Garcia RN * Gastrointestinal Question Answer Date of Assessment Author Most Recent BM Date [id number] 05/27/2025 8:00 PM Akanksha Maradiaga RN Passing Flatus Yes 05/26/2025 4:00 PM Murtaza Juarez RN Abdominal Tenderness Nontender 05/28/2025 8:00 AM Saadia Palacios RN Bowel Sounds (All Quadrants) Active 05/28/2025 8 :00 AM Saadia Schmitt RN Gastrointestinal (WDL) X 05/28/2025 8:00 AM EST Saadia Lazcano RN Abdomen Inspection Distended;Rounded 05/28/2025 8:00 A M EST Saadia Lazcano RN Hernia Umbilical 05/25/2025 4:00 AM EST Subha Crump RN GI Symptoms Distention 05/28/2025 8:00 AM EST Saadia Spain RN Relieved by HOB elevated 05/28/2025 8:00 AM EST Saadia Spain RN Gastrointestinal Additional Assessments No 05/25/2025 4:00 AM EST Subha Iverson RN * Peripheral Vascular Question Answer Date of Assessment Author Peripheral Vascular (WDL) X 05/28/2025 8:00 AM EST Saadia Lazcano RN RLE Edema +1 05/28/2025 8:00 AM Saadia Almodovar RN LLE Edema +1 05/28/2025 8:00 AM Saadia Almodovar RN Capillary Refill Less than/equal to 2 seconds (All extremities) 05/28/2025 8:00 AM Saadia Schmitt RN Pulses R radial;L radial;R pedal;L pedal 05/28/2025 8:00 AM Saadia Schmitt RN Cyanosis None 05/28/2025 8:00 AM EST Saadia Spain RN Edema Right lower extremity;Left lower extremity 05/28/2025 8:00 AM Saadia Schmitt RN PVS Additional Assessments RLE;LLE 05/26/2025 4:00 PM EST Murtaza Couch RN * RUE Neurovascular Assessment Question Answer Date of Assessment Author R Radial Pulse +2 05/28/2025 8:00 AM EST Saadia Antunez RN * LUE Neurovascular Assessment Question Answer Date of Assessment Author L Radial Pulse +2 05/28/2025 8:00 AM Saadia Beaver RN * RLE Neurovascular Assessment Question Answer Date of Assessment Author RLE Capillary Refill Less than/equal to 2 seconds 05/28/2025 8:00 AM Saadia Schmitt RN RLE Color Blotchy;Red 05/26/2025 8:00 PM EST Desiree Jules RN RLE Temperature/Moisture Warm 05/26/2025 8:00 PM Desiree Pope RN R Pedal Pulse +2 05/28/2025 8:00 AM Saadia Beltran RN * LLE Neurovascular Assessment Question Answer Date of Assessment Author LLE Capillary Refill Less than/equal to 2 seconds 05/28/2025 8:00 AM Saadia Schmitt RN LLE Color Blotchy;Red 05/26/2025 8:00 PM Desiree Eller RN LLE Temperature/Moisture Warm 05/26/2025 8:00 PM Desiree Pope RN L Pedal Pulse +2 05/28/2025 8:00 AM Saadia Beltran RN * Musculoskeletal Details Question Answer Date of Assessment Author Lower Back Pain with movement 05/28/2025 8:00 AM Saadia Schmitt RN * Musculoskeletal Question Answer Date of Assessment Author RUE Full movement 05/28/2025 8:00 AM Saadia Beltran RN RLE Weakness 05/28/2025 8:00 AM Saadia Almodovar RN LUE Full movement 05/28/2025 8:00 AM Saadia Beltran RN LLE Weakness 05/28/2025 8:00 AM Saadia Almodovar RN Musculoskeletal (WDL) X 05/28/2025 8:00 AM Saadia Schmitt RN * Urine Assessment Question Answer Date of Assessment Author Urine Color Yellow/straw 05/28/2025 8:00 AM Saadia Almodovar RN Urine Appearance Clear 05/28/2025 8:00 AM Saadia Andrew RN Urinary Incontinence Yes 05/28/2025 8:[address] Saadia Lazcano RN * Genitalia Question Answer Date of Assessment Author Male Genitalia Intact 05/28/2025 8:00 AM Saadia Beaver RN * Psychosocial Question Answer Date of Assessment Author Psychosocial (WDL) WDL 05/28/2025 8:00 AM Saadia Schmitt RN * Intake Question Answer Date of Assessment Author P.Jose 480 05/23/2025 5:00 PM Kajal Eldridge RN Percent Meals Eaten (%) 100 05/23/2025 5:00 P M Kajal Eldridge RN * Output (mL) Question Answer Date of Assessment Author Urine Odor No odor 05/23/2025 12:19 PM KIKO Janice Patrick * [place] Fall Risk Question Answer Date of Assessment Author History of Falling, Immediat e or Within 3 Months 0 05/28/2025 8:00 AM Saadia Schmitt RN Secondary Diagnosis 15 05/28/2025 8:00 AM Saadia Guzman RN Ambulatory Aid 0 05/28/2025 8:00 AM Saadia Beaver RN Intravenous Therapy/Heparin Lock 20 05/28/20 25 8:00 AM Saadia Schmitt RN Gait/Transferring 0 05/28/2025 8:00 AM Saadia Schmitt RN Mental Status 0 05/28/2025 8:00 AM Saadia Beltran RN [place] Fall Risk Score 35 05/28/2025 8:00 AM Saadia Schmitt RN * Huber Scale Question Answer Date of Assessment Author Sensory Perceptions 4 05/28/2025 8:00 AM Saadia Guzman RN Moisture 4 05/28/2025 8:00 AM Saadia Almodovar RN Activity 3 05/28/2025 8:00 AM Saadia Almodovar RN Mobility 3 05/28/2025 8:00 AM Saadia Almodovar RN Nutrition 3 05/28/2025 8:00 AM Saadia Almodovar RN Friction and Shear 3 05/28/2025 8:00 AM Saadia Schmitt RN Huber Scale Score 20 05/28/2025 8:00 AM Saadia Schmitt RN * Pain Location Answer Date of Assessment Author Back 05/28/2025 5:59 AM Akanksha Hooker RN * Pain Orientation Answer Date of Assessment Author Bilateral 05/28/2025 5:59 AM Akanksha Hooker RN * Cardiac Question Answer Date of Assessment Author Telemetry Strip Reviewed Yes, I have reviewed and acknowledged. 05/23/2025 8:00 AM Kajal Eldridge RN Cardiac Rhythm NSR 05/24/2025 4:00 AM EST Sydney Corcoran RN Ectopy Multifocal PVCs 05/23/2025 4:00 PM EST Kajal Mullen RN Ectopy Frequency Frequent 05/23/2025 4:00 PM EST Kajal Santos RN Radio Personality On No 05/28/2025 8:[address] Saadia Lazcano RN Cardiac (WDL) WDL 05/25/2025 8:00 AM EST Sidra Myers RN Telemetry/Vocational Horticulture Instructor No 05/25/2025 4:00 AM EST Subha Iverson R N * Respiratory Question Answer Date of Assessment Author Bilateral Breath Sounds Diminished 05/28/2025 8:00 A M EST Saadia Lazcano RN R Breath Sounds Diminished 05/28/2025 8:00 AM EST Saadia Jaramillo RN L Breath Sounds Diminished 05/28/2025 8:00 AM EST Saadia Jaramillo RN Respiratory Pattern Regular 05/26/2025 4:00 PM ES Murtaza Sandoval RN Chest Assessment Chest expansion symmetrical 05/26/2025 4:00 PM Murtaza Garcia RN Respiratory (WDL) X 05/28/2025 8:00 AM EST Saadia Lazcano RN Respiratory Effort Unlabored 05/26/2025 8:00 AM Murtaza Garcia RN Respiratory Depth/Rhythm Regular 05/26/2025 8:00 AM EST Murtaza Couch RN * RLE ROM Assessment Question Answer Date of Assessment Author RLE Assessment WFL 05/21/2025 1:32 PM EST Darius Ventura * LLE ROM Assessment Question Answer Date of Assessment Author LLE Assessment WFL 05/21/2025 1:32 PM Darius Granados * Vitals Question Answer Date of Assessment Author Temp src Oral 05/28/2025 2:13 AM EST Leticiale Jessy reynolds BP Location Left arm 05/28/2025 2:13 AM EST Turle y Jessy BP Method Automatic 05/28/2025 2:13 AM EST Nimco yJessy Weight Method Standing scale 05/25/2025 10:57 AM Elsi Laurent Pulse Oximetry Type Intermittent 05/22/2025 1:00 PM Maximus Payne Patient Activity During SpO2 Measurement At rest 05/22/2025 1:00 PM Maximus Juárez Patient Position Lying 05/28/2025 2:13 AM Jessy Etienne * Patient Information Question Answer Date of Assessment Author Primary Caregiver Self 05/21/2025 3:02 PM Jacki Cardona RN Accompanied by/Relationship none 05/21/2025 3:02 PM Jacki Cardona R N Support System Immediate family 05/21/2025 3:02 PM Jacki Cardona RN Patient's Education Level Middle school 05/21/2025 3:0 2 PM Jacki Cardona RN * Activities of Daily Living Question Answer Date of Assessment Author Equipment Currently Used at Home walker, rolling;shower chair 05/21/2025 3:02 PM Jacki Cardona RN Functional Status Minimum assistance 05/21/2025 3:02 P M Jacki Cardona RN Living Arrangements Alone 05/21/2025 3:02 PM Jacki Montes RN Type of Residence Private residence 05/21/2025 3:02 PM Jacki Cardona RN Smoker in the Home? No 05/21/2025 3:02 PM Jacki Montes RN * Income Information Question Answer Date of Assessment Author Income Source Disabled 05/21/2025 3:02 PM Jacki Walton RN Income/Expense Information Income meets expenses 05/21/2025 3:02 PM Jacki Cardona RN Current Resources Utilized None 05/21/2025 3:02 PM Jacki Cardona R N * Advance Directives (For Healthcare) Question Answer Date of Assessment Author Advance Directive Patient does not hav e advance directive 05/21/2025 1:21 AM Subha Dahl, DEANNA Pre-existing DNR/DNI Order No 05/21/2025 1:21 AM Subha Dahl R N Information Provided on Healthcare Directives No 05/21/2025 1:21 AM Subha Dahl, DEANNA Patient Requests Assistance No 05/21/2025 1:21 AM Subha Dahl R N Have you reviewed your Advance Directive and is it valid for this stay? No 05/20/2025 9:01 PM Robin Ortega RN * Nutrition Screen Question Answer Date of Assessment Author Difficulty Chewing or Swallowing No 05/21/20 1:24 AM Subha Dahl RN Burn, Pressure Injury, or Non-Healing Wound No 05/21/2025 1:24 AM Subha Dahl R N Home Tube Feeding or Total Parenteral Nutrition (TPN) No 05/21/2025 1:24 AM Narciso Dahl RN Food allergy, Jain, or Cultural nutrition needs No 05/21/2025 1:24 AM Subha Dahl R N * Pain Descriptors Answer Date of Assessment Author Aching 05/28/2025 5:59 AM Akanksha Hooker RN * Pain Onset Answer Date of Assessment Author Awakened from sleep 05/28/2025 5:59 AM Akanksha Stevenson RN * Pain Frequency Answer Date of Assessment Author Constant/continuous 05/28/2025 5:59 AM Akanksha Stevenson RN * Trauma/Abuse Assessment Question Answer Date of Assessment Author Physical Abuse Denies 05/21/2025 1:24 AM Subha Alanis RN Verbal Abuse Denies 05/21/2025 1:24 AM Subha Brown RN * Values/Beliefs Question Answer Date of Assessment Author Cultural Requests During Hospitalization none 05/21/2025 1:24 AM Subha Dahl R N Spiritual Requests During Hospitalization none 05/21/2025 1:24 AM Subha Dahl R N Unable to assess No 05/21/2025 1:24 AM Subha Nicole, DEANNA * Genitourinary Question Answer Date of Assessment Author Genitourinary (WDL) X 05/28/2025 8:00 AM Saadia Guzman RN Genitourinary Symptoms Other (Comment) 05/28/2025 8:00 AM Saadia Schmitt RN * Neurological Question Answer Date of Assessment Author Level of Consciousness Alert 8:00 AM Saadia Schmitt RN Orientation Level Oriented X4 05/28/2025 8:0 0 AM Saadia Schmitt RN Cognition Follows commands 05/28/2025 8:00 AM Saadia Schmitt RN Speech Appropriate for developmental age 1105/28/2025 8:00 AM Saadia Schmitt RN L Pupil Reaction Brisk 05/28/2025 8:00 AM Saadia Schmitt RN L Pupil Size (mm) 3 05/28/2025 8:0 0 AM Saadia Schmitt RN R Pupil Reaction Brisk 05/28/2025 8:00 AM Saadia Schmitt RN R Pupil Size (mm) 3 05/28/2025 8:0 0 AM Saadia Schmitt RN Neuro (WDL) X 05/25/2025 8:00 AM Sidra Forman RN Swallow Able to swallow manuelito ds and liquids without difficulty 05/28/2025 8:00 AM Saadia Schmitt RN R Pupil Shape Round 05/28/2025 8:00 AM Saadia Schmitt RN L Pupil Shape Round 05/28/2025 8:00 AM Saadia Schmitt RN Pupil Assessment Yes 05/28/2025 8:00 AM Saadia Schmitt RN Hand Grasp/Motor Function/Sensation Assessment Grasp 05/28/2025 8:00 AM Saadia Schmitt RN * Height and Weight Question Answer Date of Assessment Author Height 67 05/20/2025 11:05 AM Ligia Bird RN Height Method Estimated 05/20/2025 11:05 AM Ligia Malik RN * Prior Function Question Answer Date of Assessment Author Level of Mobility Ambulatory- community 05/21/2025 1:3 2 PM Darius Woodruff Mobility Jerome Independent gait w ith device 05/21/2025 1:32 PM Darius Woodruff History of Falls No 05/21/2025 1:32 PM Darius Arredondo ADL Performance Independent 05/21/2025 1:32 PM Darius Osorio Receives Help From No assist required p rior to admission 05/21/2025 1:32 PM Darius Woodruff * RUE ROM Assessment Question Answer Date of Assessment Author RUE Assessment WFL 05/21/2025 1:32 PM EST Darius Ventura * LUE ROM Assessment Question Answer Date of Assessment Author DONNA Assessment [facility] 05/21/2025 1:32 PM EST Darius Ventura * Safe Environment Question Answer Date of Assessment Author 37-Pin Connection [Bed and Wall] Yes 05/28/20 8:00 AM Saadia Schmitt RN Arm Bands On ID 05/28/2025 8:00 AM Saadia Almodovar RN Side Rails/Bed Safety 4/4 05/28/2025 8:00 AM Saadia Schmitt RN NonSkid Footwear On 05/28/2025 8:00 AM Saadia Andrew RN The Patient's Environment is Safe Yes 025 8:00 AM Saadia Schmitt RN Head of Bed Angle 35 05/28/2025 12:00 AM Akanksha Hooker RN Bed Foot Left Rail Up State Yes 05/28/2025 8: 00 AM Saadia Schmitt RN Bed Head Right Rail Up State Yes 05/28/2025 8 :00 AM Saadia Schmitt RN Bed Head Left Rail Up State Yes 05/28/2025 8: 00 AM Saadia Schmitt RN Bed Foot Right Rail Up State No 05/28/2025 8 :00 AM Saadia Schmitt RN Bed Exit System Activate Status Yes 8:00 AM Saadia Schmitt RN Bed Brake State Yes 05/28/2025 8:00 AM Saadia Dixon Ma, RN Bed Low Height State Yes 05/28/2025 8:[address] Saadia Lazcano RN Chair Exit System Activate Status No 025 4:00 AM Akanksha Hooker RN * Fall Risk Interventions Question Answer Date of Assessment Author Enhanced Safety Measures bed alarm set 05/28/2025 8:00 AM Saadia Schmitt RN Toilet Every 2 Hours-In Advance of Need Yes 05/28/2025 8:00 AM Saadia Schmitt RN Hourly Visual Checks Awake;In bed 05/28/2025 8:00 AM Saadia Palacios RN Room Door Open Yes 05/28/2025 8:00 AM Saadia Beaver RN Gait Belt Used For Transfers No (Comment) 05/28/2025 8:00 AM Saadia Schmitt RN Fall Bundle Components Call light within reach;Personal belongings within reach;Overbed table within reach;Bed in lowest position;Bed wheels locked 05/28/2025 8:00 AM Saadia Schmitt RN * Mobility Question Answer Date of Assessment Author Range of Motion active ROM (range of motion) encouraged 05/28/2025 4:00 AM Akanksha Hooker RN Body Position weight shifting 05/28/2025 12:00 AM Akanksha Hooker RN VTE Prevention/Management medication 05/28/2025 4:00 AM Akanksha Hooker RN Ambulation Response Tolerated well 05/27/2025 1 2:39 PM Alfredo Angelo CNA Repositioned Turns self;Prompted independent patient to reposition 05/28/2025 4:00 AM Akanksha Hooker RN Head of Bed Elevated Self regulated 05/28/2025 4:00 AM Akanksha Hooker RN Heels/Feet Heels elevated off bed;Foot of bed elevated 05/28/2025 4:00 AM Akanksha Hooker RN Positioning Frequency Able to turn self 05/28/20 8:00 AM Saadia Schmitt RN Early Mobility/Exercise Safety Screen Proceed with mobilization - No exclusion criteria met 05/21/2025 8:00 AM Annelise Massey RN * Hygiene Question Answer Date of Assessment Author Perineal Care perineum cleansed 05/27/2025 6:30 PM Alfredo Angelo CNA Bathing/Skin Care bath, partial;dressed/undre ssed;incontinence care;linen changed 05/27/2025 6:30 PM Alfredo Angelo CNA Oral Care oral rinse provided 05/27/2025 6:00 AM Desiree Beckford RN Oral Care (Yes/No) Yes 05/27/2025 6:00 AM Desiree Pope RN CHG (Chlorhexidine Gluconate) Hygiene Wipes 05/27/2025 6:30 PM EST Alfredo Gruber CNA * Precautions Question Answer Date of Assessment Author Precautions None 05/28/2025 8:00 AM Saadia Almodovar RN * Comfort and Environment Interventions Question Answer Date of Assessment Author Comfort Repositioned 05/28/2025 8:00 AM Saadia Almodovar RN Additional Comfort/Environmental Interventions Warm blanket 05/24/2025 1:29 PM EST Blanca Haque * Safety Equipment at Bedside Question Answer Date of Assessment Author Standard Bedside Safety Ambu bag/mask at bedside 05/28/2025 8:00 AM Saadia Schmitt RN Additional Bedside Safety Bed in locked and low position 05/28/2025 8:00 AM Saadia Schmitt RN * IBW/kg (Calculated) Male Answer Date of Assessment Author 66.1 05/20/2025 11:05 AM Antony Forbes RN * IBW/kg (Calculated) Female Answer Date of Assessment Author 61.6 05/20/2025 11:05 AM Antony Forbes RN * Consults Question Answer Date of Assessment Author Integrative Medicine Consult Needed No 05/21 1:25 AM Subha Dahl RN Pastoral Care Consult Needed No 05/21/2025 1 :25 AM Subha Dahl RN Social Services Consult Needed No 05/21/2025 1:25 AM Subha Dahl, DEANNA * Therapy Consults Question Answer Date of Assessment Author PT Evaluation Needed 2 05/21/2025 1:25 AM Subha Voss, DEANNA OT Evaluation Needed 2 05/21/2025 1:25 AM Subha Voss, DEANNA BACTERIOLOGY PROFESSOR Evaluation Needed 2 05/21/2025 1:25 AM Subha Dahl, DEANNA * Assistive Devices Question Answer Date of Assessment Author Assistive Devices Cane;Walker 05/21/2025 1:21 AM Subha Dahl, DEANNA * Hourly Rounding Question Answer Date of Assessment Author Hourly Rounding Complete Per Guideline Yes 05/28/2025 10:00 AM Saadia Schmitt RN * Patient Violence Risk Assessment Question Answer Date of Assessment Author History of Violence: In the past 12 hours has the PATIENT exhibited any of the following? None 05/28/2025 8:00 AM Saadia Schmitt RN Potential for Violence: In the past 12 hours has the PATIENT exhibited any of the following? None 05/28/2025 8:00 AM Saadia Schmitt RN Risk No identified risk 05/28/2025 8:00 AM Saadia Schmitt RN History of Violence: In the past 12 hours has a PARTNER IN CARE of the patient exhibited any of the following? None 05/28/2025 8:00 AM Saadia Schmitt RN * RT Vital Signs Question Answer Date of Assessment Author Post-Tx Heart Rate 83 05/26/2025 8:45 AM Candido Cardoza * Continuous Albuterol or Epoprostenol Inhalation Question Answer Date of Assessment Author Treatment Tolerance Tolerated well 05/26/2025 8:15 AM Candido Cardoza * Metaneb Question Answer Date of Assessment Author $ Nebulizer Therapy Automation/Controls Manager held nebulizer tx initial charge 05/26/2025 8:15 AM Candido Cardoza * Malnutrition Identification Question Answer Date of Assessment Author Unable to Complete Exam Unable to access exam locations 05/26/2025 2:[address] * Airway Question Answer Date of Assessment Author Airway (WDL) [facility] 05/20/2025 11:00 PM EST Martha Britt RN * Breathing Question Answer Date of Assessment Author Breathing (WD) [facility] 05/20/2025 11:00 PM EST Martha Marti RN * Circulation Question Answer Date of Assessment Author Circulation (WDL) [facility] 05/20/2025 11:00 PM EST Martha Rodriguez RN * Disability Question Answer Date of Assessment Author Disability (WDL) [facility] 05/20/2025 11:00 PM EST Martha Rodriguez RN * Restart Vitals Timer Answer Date of Assessment Author Yes 05/28/2025 2:13 AM EST Aminta Yung * IBW/kg (Calculated) Answer Date of Assessment Author 66.1 05/20/2025 11:05 AM EST Antony Jorgensen RN * STOP-Bang Questionnaire Question Answer Date of Assessment Author Do you snore loudly? 0 05/21/2025 1:24 AM Subha Voss RN Do you often feel tired or f atigued after your sleep? 1 05/21/2025 1:24 AM Subha Dahl R N Has anyone ever observed you stop breathing in your sleep? 1 05/21/2025 1:24 AM Subha Dahl RN Do you have or are you being treated for high blood pressure? 1 05/21/2025 1:24 AM Subha Dahl RN Is BMI greater than 35 kg/m2? 0=No 05/21/2025 1:24 AM Subha Dahl RN Age older than 50 years old? 1=Yes 05/21/2025 1 :24 AM Subha Dahl RN Is your neck circumference g reater than 17 inches (Male) or 16 inches (Female)? 1 05/21/2025 1:24 AM Subha Dahl R N Gender - Male 1=Yes 05/21/2025 1:24 AM Subha Alcala RN STOP-Bang Total Score 6 05/21/2025 1:24 AM Subha Dahl RN Recent BMI (Calculated) 31.8 05/21/2025 1:24 A M Subha Dahl RN * Feeding Question Answer Date of Assessment Author Feeding Level of Assistance Setup 05/21/2025 10 :40 AM Nellie Fisher Feeding Where Assessed Chair Level 05/21/2025 10:40 A M Nellie Fisher * Grooming Question Answer Date of Assessment Author Grooming Where Assessed Edge of bed 05/25/2025 10:06 AM Nellie Fisher Grooming Level of Assistance Setup;SBA 05/25/2025 1 0:06 AM Nellie Fisher * General Question Answer Date of Assessment Author Next OT Reassessment 36153 05/21/2025 10:40 AM Nellie Fisher Patient/Family Goals Statement agreeable to participation 05/25/2025 10:06 AM Nellie Fisher Date of OT Session [id number] 05/25/2025 10 :06 AM Nellie Fisher * Home Living Question Answer Date of Assessment Author Home Type Apartment 05/21/2025 1:32 PM EST Stilz , Darius Bathroom: Tub/Shower Walk-in shower;Grab bars;Built-in shower seat 05/21/2025 1:32 PM Darius Woodruff Bathroom: Toilet Tall 05/21/2025 1:32 PM Darius Arredondo Bathroom: Accessibility Accessible 05/21/2025 1:32 P M Darius Woodruff Home Layout One level 05/21/2025 1:32 PM Darius Woodruff Home Adaptive Equipment Rollator;Cane;sh ower chair 05/21/2025 1:32 PM Darius Woodruff Lives With Alone 05/21/2025 1:32 PM Darius Woodruff * Date of PT Session Question Answer Date of Assessment Author PT Initials AJS 05/25/2025 10:01 AM Darius Smith Date of PT Session [id number] 05/25/2025 10:01 AM Darius Funes * Pneumococcal Vaccine Screen - Year Round Question Answer Date of Assessment Author Have you ever had a pneumonia vaccination? No 05/20/2025 9:01 PM Vinicio Ortega RN Pneumovax Indications 65 years or older 05/20/2025 9:0 1 PM Martha Ortega RN Patient Meets Criteria Yes 05/20/2025 9:01 PM Martha Ortega RN * Influenza Vaccine Screen - March Through October Question Answer Date of Assessment Author Have you had an influenza vaccine this season? No 05/20/2025 9:01 PM Martha Ortega RN Influenza Vaccine Indications Adults greater than or equal to 65 years of age 1105/20/2025 9:01 PM Martha Ortega RN * Calculated C-SSRS Risk Score (Lifetime/Recent) Answer Date of Assessment Author No Risk Indicated 05/28/2025 8:00 AM Saadia Schmitt RN * Prachi Coma Scale Question Answer Date of Assessment Author Best Eye Response Spontaneous 05/28/2025 8:00 AM Saadia Schmitt RN Best Verbal Response Oriented 05/28/2025 8:00 AM E Saadia Ivey RN Best Motor Response Follows commands 05/28/2025 8:00 A M Saadia Schmitt RN [place] Coma Scale Score 15 05/28/2025 8:00 AM Saadia Schmitt RN * EASI ?? (Elder Abuse Suspicion Index) Question Answer Date of Assessment Author Have you relied on people fo r any of the following: bathing, dressing, shopping, banking, or meals? 1 05/20/2025 9:00 PM Martha Ortega RN Has anyone prevented you fro m getting food, clothes, medication, glasses, hearing aids, or medical care, or from being with people you wanted to be with? 0 05/20/2025 9:00 PM Martha Ortega RN Have you been upset beacuse someone talked to you in a way that made you feel shamed or threatened? 0 05/20/2025 9:00 PM Martha Ortega RN Has anyone tried to force yo u to sign papers or to use your money against your will? 0 05/20/2025 9:00 PM Martha Ortega RN Has anyone made you afraid, touched you in ways that you did not want, or hurt you physically? 0 05/20/2025 9:00 PM Robin Ortega RN Elder abuse may be associate d with findings such as poor eye contact, withdrawn nature, malnourishment, hygiene issues, cuts, bruises, inappropriate clothing, or medication compliance issues. Did you notice any of these today?* 0 05/20/2025 9:00 PM Martha Romero RN EASI Total Score 0 05/20/2025 9:00 PM Martha Ortega RN * Learning Assessment Question Answer Date of Assessment Author Education Level High school 05/20/2025 11:10 AM Ligia Desai RN Factors that Impact Ability to Learn None 05/20/2025 11:10 AM Ligia Forbes RN Cultural Considerations None 05/20/2025 11:10 AM Ligia Forbes RN Jain Considerations None 05/20/2025 11:10 AM Ligia Forbes RN * Abuse Screen Question Answer Date of Assessment Author Are you or have you been threatened or abused physically, emotionally, or sexually by a partner, spouse, or family member? No 05/20/2025 11:10 AM Ligia Desai RN * MODESTA 1 Fall Risk Factor Assessment Question Answer Date of Assessment Author Presented to ED because of fall 0 05/20/2025 11:10 AM Ligia Forbes RN Age > 70 1 05/20/2025 11:10 AM Ligia Forbes RN Intoxicated with alcohol or substance confusion 0 05/20/2025 11:10 AM Ligia Forbes RN Ambulates or transfers with assistive devices or assist 1 05/20/2025 11:10 AM Ligia Forbes RN Unable to ambulate or transfer 0 05/20/2025 11:10 AM Ligia Forbes RN Nursing judgement 1 05/20/2025 11: 10 AM Ligia Forbes RN KINDER 1 Fall Risk Score 3 025 11:10 AM Ligia Forbes RN High Fall Risk Interventions for Scores 1 and above Fall risk bundle components in place as defined below;Non-skid socks on patient as appropriate;Side rails raised;Bed in lowest position and locked;Alarms set and confirmed;Call light within reach;Belongings within reach;Patient/family educated on additional fall prevention tips;Patient/family told to always call for assistance;Patient in area that is highly visible 05/20/2025 11:10 AM Ligia Forbes RN * Geriatric Triage Risk Screening Tool (TRST) Question Answer Date of Assessment Author TRST Assessment Total 2 05/20/2025 11:10 AM Ligia Forbes RN Cognitive impairment 0 05/20/2025 11:10 AM Ligia Forbes RN Five or more medications 1 05/20/2025 11:10 AM Ligia Forbes RN Difficulty walking/ transfer ring, or recent falls 1 05/20/2025 11:10 AM Ligia Forbes RN ED use in the last 30 days o r hospitalization in previous 90 days 0 05/20/2025 11:10 AM Ligia Forbes RN Lives alone and/ or no caregiver 0 05/20/20 11:10 AM Ligia Forbes RN ED staff concerns 0 05/20/2025 11:10 AM Ligia Forbes RN * [place] Suicide Severity Rating Scale Question Answer Date of Assessment Author Is patient awake, alert, and able to answer questions appropriately? Yes 05/20/2025 11:10 AM Ligia Desai RN * Boarding Screenings Question Answer Date of Assessment Author Have you done screenings in triage or boarder navigator? Yes 05/20/2025 9:01 PM Martha Ortega RN * Patient Belongings Placed in Locker Question Answer Date of Assessment Author Belongings at Bedside Retained by raekevin karthik and/or family/legal outside sales representative who assumes responsibility 05/20/2025 11:10 AM Ligia Forbes RN * HEENT Question Answer Date of Assessment Author HEENT (WDL) X 05/20/2025 7:30 PM Martha Romero RN HEENT Pertinent Negatives Vision/hearing clear;No drainage/congestion;No dysphagia 05/20/2025 7:30 PM Martha Ortega RN * Peripheral Vascular Question Answer Date of Assessment Author Peripheral Vascular (WDL) X 05/20/2025 7:30 PM Martha Ortega RN * Weight in (lb) to have BMI = 25 Answer Date of Assessment Author 159.3 05/20/2025 11:05 AM Antony Forbes RN * BMI (Calculated) Answer Date of Assessment Author 31.3 05/28/2025 5:59 AM Akanksha Hooker RN * Percent Excess Weight Loss Answer Date of Assessment Author 0 05/20/2025 11:05 AM Antony Forbes RN * Weight Change Since Preop Answer Date of Assessment Author 90.6 05/28/2025 5:59 AM Akanksha Hooker RN * Initial Excess Weight Answer Date of Assessment Author -67.13 05/20/2025 11:05 AM Antony Forbes RN * IBW in kg (Bariatric) Answer Date of Assessment Author 67.13 05/20/2025 11:05 AM Antony Forbes RN * IBW in lb (Bariatric) Answer Date of Assessment Author 148 05/20/2025 11:05 AM Antony Forbes RN * Weight Change Since Last Visit Answer Date of Assessment Author 3 05/28/2025 5:59 AM Akanksha Hooker RN * Percent of IBW Answer Date of Assessment Author 140.32 05/20/2025 11:05 AM Antony Forbes RN * EBW (kg) Answer Date of Assessment Author 27.05 05/20/2025 11:05 AM Antony Forbes RN * EBW (lb) Answer Date of Assessment Author 59.67 05/20/2025 11:05 AM Antony Forbes RN * Difference in Weight Since Last Visit Answer Date of Assessment Author 3 05/28/2025 5:59 AM Akanksha Hooker RN * Respiratory Assessment Question Answer Date of Assessment Author Assessment Type Post-treatment 05/26/2025 8:45 AM Candido Cardoza Bilateral Breath Sounds- Pos t Treatment Anterior;Clear 05/26/2025 8:45 AM Candido Cardoza * Housing Circumstances-Z Codes Question Answer Date of Assessment Author Housing Circumstances (select all that apply) None Applicable 05/21/2025 3:02 PM Jacki Cardona RN * Pain Type Answer Date of Assessment Author Chronic pain 05/28/2025 5:59 AM Akanksha Hooker RN * Clinical Progression Answer Date of Assessment Author Not changed 05/28/2025 5:59 AM Akanksha Hooker RN * Temp (in Celsius) for CIRCLE IV Answer Date of Assessment Author 36.6 05/28/2025 7:55 AM EST Mango , Nain Flowsheet In * Pain Assessment Question Answer Date of Assessment Author Patient's Stated Pain Goal No pain 05/28/2025 8:00 AM Saadia Schmitt RN Patient is asleep Yes, assume pain is decreased 05/28/2025 6:59 AM Akanksha Hooker RN Pain Score 0 05/28/2025 8:00 AM Saadia Almodovar RN Pain Assessment 0-10 (Adult DVPRS/Pe ds 0-10) 05/28/2025 8:00 AM Saadia Schmitt RN * Constipation Question Answer Date of Assessment Author Current Interventions Stool Softener 05/21/2025 8:00 P M EST Ashley Hanson RN * Nutrition Question Answer Date of Assessment Author Fluid Restrictions 1800 05/23/2025 8:00 PM EST Sydney Omalley RN Diet Type Regular 05/28/2025 8:00 AM EST Saadia Spain RN Feeding Able to feed self 05/28/2025 8:00 AM EST Saadia Lazcano RN Appetite Good 05/28/2025 8:00 AM EST Saadia Spain RN * IBW/kg (Calculated) Answer Date of Assessment Author 66.1 05/20/2025 11:05 AM EST Antony Jorgensen RN * Adult Low Range Vt 6mL/kg Answer Date of Assessment Author 396.6 05/20/2025 11:05 AM Antony Forbes RN * Adult Moderate Range Vt 8mL/kg Answer Date of Assessment Author 528.8 05/20/2025 11:05 AM Antony Forbes RN * Adult High Range Vt 10mL/kg Answer Date of Assessment Author 661 05/20/2025 11:05 AM Antony Forbes RN * Respiratory Interventions Question Answer Date of Assessment Author Respiratory Interventions Cough and deep breathing 05/28/2025 8:00 AM EST Saadia Lazcano RN * Cough and Deep Breathe Question Answer Date of Assessment Author Cough And Deep Breathing done independently per patient 05/28/2025 8:00 AM EST Saadia Lazcano RN * Genitourinary Additional Assessments Question Answer Date of Assessment Author Genitourinary Additional Assessments No 05/26/2025 4:00 PM EST Murtaza Couch RN * Integumentary Question Answer Date of Assessment Author Skin Color Appropriate for ethnicity 05/27/2025 4:00 PM EST Machelle Molina Skin Condition/Temp Warm 05/27/2025 4 :00 PM EST Machelle Molina Skin Turgor Epidermis thin with loss of subcutaneous tissue 05/27/2025 4:00 PM EST Machelle Molina 4 Eyes Skin Assessment Completed Yes 05/21/2025 12:00 PM EST Annelise Koehler RN Manual Dual Sign Off 2nd RN Jan RN 05/21/2025 4:00 AM EST Subha Iverson RN Skin Tone Light 05/27/2025 4:00 PM EST Machelle Molina [employer] (WDL) WDL 05/28/2025 8 :00 AM EST Saadia Lazcano RN * Patient Belongings Sent Home Question Answer Date of Assessment Author Belongings Sent Home Clothing 05/28/2025 10:33 AM EST Saadia Lazcano RN Clothing Pants;Shirt 05/28/2025 10:33 AM EST Saadia Bedolla RN * Skin Assessment Question Answer Date of Assessment Author Scale Used Huber 05/20/2025 9:01 PM EST Martha Avendano RN * Confusion Assessment Method (CAM) Question Answer Date of Assessment Author Acute Onset and Fluctuating Course (1A) No 05/28/2025 8:00 AM EST Saadia Lazcano RN * Confusion Assessment Method-ICU (CAM-ICU/PCAM-ICU) Question Answer Date of Assessment Author Feature 1: Acute Onset or Fluctuating Course Negative 05/28/2025 4:00 AM EST Akanksha Molina RN * Feature 3: Altered Level of Consciousness Answer Date of Assessment Author Negative 05/28/2025 8:00 AM Saadia Schmitt RN * Overall CAM-ICU/PCAM-ICU Answer Date of Assessment Author Negative 05/28/2025 4:00 AM EST Akanksha Molina RN * Sedation Scales Question Answer Date of Assessment Author Sedation Scale Used Lehman Agitation Sedation Scale 05/28/2025 8:00 AM Saadia Schmitt RN RASS 0 05/28/2025 8:00 AM EST Saadia Spain RN Pasero Opioid-Induced Sedation Scale (POSS) 1 05/28/2025 8:00 AM Saadia Schmitt RN * Stool Output/Assessment Question Answer Date of Assessment Author Unmeasured Stool Occurrence (hourly total) 1 05/26/2025 6:00 AM EST Desiree De Oliveira R N Stool Color Brown 05/26/2025 6:00 AM EST Desiree Jules RN Stool Amount Medium 05/26/2025 6:00 AM EST Desiree Jules RN Stool Appearance Formed 05/26/2025 6:00 AM EST Desiree Castillo RN Bowel Incontinence No 05/26/2025 8:00 AM EST Murtaza Couch RN * Fall Risk Calculated Score Answer Date of Assessment Author Okeefe Herbert 05/28/2025 8:00 AM Saadia Schmitt RN * Patient Specific Goals Question Answer Date of Assessment Author Patient/Family-Specific Goals (Include Timeframe) patient safe by the end of the shift 05/28/2025 8:00 AM Saadia Schmitt RN Individualized Care Needs Patient safe b y the end of the shift 05/28/2025 8:00 AM Saadia Schmitt RN Anxieties, Fears or Concerns none 05/28/2025 8:00 AM Saadia Schmitt RN * Delirium Assessment Question Answer Date of Assessment Author Delirium Prevention & Management Yes 05/28/2025 8:00 AM Saadia Schmitt RN Delirium Prevention & Management: Early Mobility Ambulate to extent of patient's ability;Up to chair for meals;Out of room if possible;Educate patient and family about the benfits of early mobility in the hospital 05/28/2025 8:00 AM Saadia Schmitt RN Delirium Prevention & Management: Cognitive Engagement Familiar objects from home provided;Familiar social contact provided 05/28/2025 8:00 AM Saadia Schmitt RN Delirium Prevention & Management: Optimize Sleep/Wake Cycles Lighting decreased at night;Cluster care to decrease awakenings 05/28/2025 8:00 AM Saadia Schmitt RN Delirium Scale Used Confusion Assessment Method ICU/ PCAM ICU 05/28/2025 4:00 AM Akanksha Hooker RN * Mini Nutritional Assessment/Screening (Adults 65 and Older) Question Answer Date of Assessment Author A. Has food intake declined over the past 3 months due to loss of appetite, digestive problems, chewing or swallowing difficulties? 0 05/20/2025 9:01 PM Martha Dodd RN B. Weight loss during the 3 months 0 05/20/2025 9:01 PM Martha Ortega, DEANNA C. Mobility 1 05/20/2025 9:01 PM Martha Romero RN D. Has suffered psychologica l stress or acute disease in the past 3 months? 2 05/20/2025 9:01 PM Martha Ortega RN E. Neuropsychological problems 2 05/20/2025 9:01 PM Martha Ortega RN * F1. MNA Body Mass Index (BMI) (Weight in kg)/(Height in m)2 Answer Date of Assessment Author 3 05/20/2025 9:01 PM Lola Ortega RN * Mini Nutritional Screening Score Answer Date of Assessment Author 8 05/20/2025 9:01 PM Lola Ortega RN * Assume Pain is Present Answer Date of Assessment Author No 05/27/2025 8:40 PM EST Akanksha Molina RN * Urine Output Question Answer Date of Assessment Author Urine 650 05/25/2025 6:26 AM EST Subha Crump RN * Unplanned Readmission Scores Question Answer Date of Assessment Author Unplanned Readmission Score 27.78 05/28/2025 8: 00 AM EST Marleny Smith * F = Family/Partner in Care Engagement and Empowerment Question Answer Date of Assessment Author How did you engage the family/partner in care? No family/tree care foreman present at this time. Will reevaluate 05/26/2025 8:00 AM EST Murtaza Couch RN How did the family/partner in care participate? No family/tree care foreman present at this time. Will reevaluate 05/26/2025 8:00 AM Murtaza Garcia RN * Malnutrition Screening Tool (MST) Question Answer Date of Assessment Author Have you recently lost weigh t without trying? 0 05/20/2025 9:01 PM Martha Ortega RN Have you been eating poorly because of a decreased appetite? 0 05/20/2025 9:01 PM Mynor Ortega, DEANNA * Weight Loss Score Answer Date of Assessment Author 0 05/20/2025 9:01 PM Lola Ortega RN * Malnutrition Score Answer Date of Assessment Author 0 05/20/2025 9:01 PM Lola Ortega RN * Prachi Coma Scale Numeric Answer Date of Assessment Author 15 05/28/2025 8:00 AM EST Saadia Lazcano RN * Inhalation Therapy Tx Question Answer Date of Assessment Author Delivery Source Small Volume Nebulizer 8:15 AM Candido Cardoza Duration 30 05/26/2025 8:15 AM Candido Cardoza Medications Albuterol 05/26/2025 8:15 AM Candido Cardoza Tx Performed By Respiratory Therapist 05/26/2025 8:15 AM Candido Cardoza $ Nebulizer Tx Subsequent Charge 3 05/26/2025 8:15 AM Candido Cardoza * Elevate heels task - custom formula Answer Date of Assessment Author 1 05/28/2025 4:00 AM Akanksha Hooker RN * Neurological Question Answer Date of Assessment Author Neuro Pertinent Negatives Alert and oriented x 4;Speech clear 05/20/2025 7:30 PM Martha Ortega RN Neuro (WDL) WDL 05/20/2025 7:30 PM Martha Romero RN * Gastrointestinal Question Answer Date of Assessment Author Pain Location Generalized middle abdomen 05/20/2025 7:30 PM Martha Ortega RN Gastrointestinal (WDL) X 05/20/2025 7:30 PM Martha Ortega RN * Skin Color/Condition Question Answer Date of Assessment Author Skin Pertinent Negatives Intact;Warm;Dry 05/20/2025 7: 30 PM Martha Ortega RN Skin Color/Condition (WDL) WDL 05/20/2025 7:3 0 PM Martha Ortega RN * Psychosocial Question Answer Date of Assessment Author Psychosocial (WDL) WDL 05/20/2025 7:30 PM Martha Ortega RN * Cardiac Question Answer Date of Assessment Author Chest Pain Present No 05/20/2025 7:30 PM Martha Ortega RN Cardiac Pertinent Negatives Heart rate regular 05/20/2025 7:30 PM Martha Ortega RN Cardiac (WDL) WDL 05/20/2025 7:30 PM Marhta Perez RN * Genitourinary Question Answer Date of Assessment Author Urinary Symptoms/Conditions Burning w/urination 05/20/2025 7:30 PM Martha Ortega RN Genitourinary Pertinent Negatives Continent 05/20/2025 7:30 PM Martha Ortega RN Genitourinary (WDL) X 05/20/2025 7:30 PM Martha Mckeon RN * Respiratory Question Answer Date of Assessment Author Respiratory Pertinent Negatives Respirations regular/unlabored;No cough 05/20/2025 7:30 PM Martha Ortega RN Respiratory (WDL) WDL 05/20/2025 7:3 0 PM Martha Ortega RN * Musculoskeletal Question Answer Date of Assessment Author Musculoskeletal Pertinent Negatives Moves all extremities;No injury;No deformity 05/20/2025 7:30 PM Martha Ortega RN Musculoskeletal (WDL) X 05/20/2025 7:30 PM Martha Ortega RN * Vitals Timer Question Answer Date of Assessment Author Update Vitals Alert Interval 240 05/20/2025 3 :03 PM Anders Moran CNA Restart Vitals Timer Yes 05/28/2025 2:13 AM E Jessy Hyde Restart Vitals Timer Yes 05/20/2025 3:03 PM E Anders Estevez CNA * Hourly Rounding Question Answer Date of Assessment Author Activity Assistance Stand by assist 05/25/2025 4:00 AM Subha Dahl RN Toileting External collection device 05/25/2025 4:00 AM Subha Dahl RN Call Light Call light present a nd within reach 05/25/2025 4:00 AM Subha Dahl, DEANNA Rest/ Sleep No problem identified;Resting 05/25/2025 4:00 AM Subha Dahl RN Rest/ Sleep Enhancement Care clustered t o minimize awakenings 05/25/2025 12:00 AM Subha Dahl RN Completed Hourly Rounding Yes 05/24/2025 8:03 PM Subha Dahl R N Plan of Care Reviewed With Patient 05/25/2025 4:00 AM Subha Dahl R N * Standardized Assessments Question Answer Date of Assessment Author Standardized Assessments AMPA 6-Clicks Mobility Assessment 05/25/2025 10:01 AM Darius Woodruff * [facility] 6-Click Daily Activities Question Answer Date of Assessment Author Help from Other: Don/Doff Re gular Lower Body Clothings 3 05/21/2025 10:40 AM Nellie Fisher Help From Other: Bathing 3 05/21/2025 10:40 AM Nellie Fisher Help From Other: Toileting 2 05/21/2025 10: 40 AM Nellie Fisher Help From Other: Don/Doff Up per Body Clothings 3 05/21/2025 10:40 AM Nellie Fisher Help From Other: Grooming 4 05/21/2025 10:4 0 AM Nellie Fisher Help From Other: Eating Meals 4 05/21/2025 10:40 AM Nellie Fisher [facility] 6 Click - Daily Activities Score 19 10:40 AM Nellie Fisher * Standardized Tests Question Answer Date of Assessment Author Standardized Tests [facility] 6-Clicks 05/21/2025 10:40 AM Nellie Fisher * Nilton/Cubbin Scale Question Answer Date of Assessment Author Age (years) 1 05/28/2025 8:00 AM Saadia Almodovar RN Hemodynamics 4 05/28/2025 8:00 AM Saadia Almodovar RN Weight/Tissue Viability 3 05/28/2025 8:00 A M Saadia Schmitt RN Respiration 4 05/28/2025 8:00 AM Saadia Almodovar RN Past Medical History 4 05/28/2025 8:[address] Saadia Lazcano RN Oxygen Requirments 4 05/28/2025 8:00 AM Saadia Schmitt RN General Skin Condition 4 05/28/2025 8:00 AM Saadia Schmitt RN Nutrition 4 05/28/2025 8:00 AM Saadia Almodovar RN Medical Condition 4 05/28/2025 8:00 AM Saadia Schmitt RN Incontinence 4 05/28/2025 8:00 AM Saadia Almodovar RN Mobility 4 05/28/2025 8:00 AM Saadia Almodovar RN Hygiene 3 05/28/2025 8:00 AM Saadia Almodovar RN Deduction if patient has bee n in surgery or transported to CT, MRI, or HBOT during last 48 hours 0 05/28/2025 8:00 AM Saadia Schmitt RN Deduction if patient has req uired blood or clotting factors during last 24 hours 0 05/28/2025 8:00 AM Saadia Schmitt RN Deduction if patient has hypothermia of 35 C or under (core temp) 0 05/28/2025 8:00 AM Leana Schmitt RN Jackson/Kaylie Pressure Risk Score 43 2024 8:00 AM Saadia Schmitt RN * Elopement Risk Screen Question Answer Date of Assessment Author Does the patient exhibit any of the following behaviors? No 05/28/2025 8:00 AM Saadai Schmitt RN Does the patient have a cour t ordered legal guardian? No 05/28/2025 8:00 AM Chioma Schmitt RN * Manual Muscle Testing - LLE Question Answer Date of Assessment Author Manual Muscle Testing [facility] 05/21/2025 1:32 PM Darius Woodruff * Manual Muscle Testing - RUE Question Answer Date of Assessment Author Manual Muscle Testing - RUE L 05/21/2025 1: 32 PM Darius Woodruff * Manual Muscle Testing - LUE Question Answer Date of Assessment Author Manual Muscle Testing - LUE [facility] 05/21/2025 1: 32 PM Darius Woodruff * Cognition Question Answer Date of Assessment Author Mood/Behavior Alert 05/21/2025 1:32 PM Darius Woodruff Orientation Level Oriented X4 05/21/2025 1:3 2 PM Darius Woodruff Overall Cognitive Status WFL 025 1:32 PM Darius Woodruff Arousal/Alertness Appropriate response s to stimuli 05/21/2025 1:32 PM Darius Woodruff Method of Communication Verbal 05/21/20 25 1:32 PM Darius Woodruff Single Step Commands Consistently 05/21/2025 1:32 PM Darius Woodruff Multi-Step Commands Consistently 05/21/2025 1 :32 PM Darius Woodruff * OT Assessment Question Answer Date of Assessment Author OT Assessment Results Impaired ADL performance;Impaired IADL performance;Decreased endurance/ventilation/ gas exchange;Impaired functional mobility 05/21/2025 10:40 AM Nellie Fisher Occupational Profile Brief history including review of medical/therapy records relating to presenting problem 05/21/2025 10:40 AM Nellie Fisher Clinical Decision Making Low 025 10:40 AM Nellie Fisher Overall Eval complexity Low 05/21/20 10:40 AM Nellie Fisher Evaluation/Treatment Tolerance Patient limited by fatigue 05/21/2025 10:40 AM Nellie Fisher Rehab Potential Good, to achieve stated therapy goals 05/21/2025 10:40 AM Nellie Fisher Performance Deficits Activities of daily living (ADLs);Instrumental activities of daily living (IADLs);Habits;Routine s;Body functions 05/21/2025 10:40 AM Nellie Fisher * C-SSRS (Frequent Screener) Question Answer Date of Assessment Author Is patient awake, alert, and able/willing to answer questions appropriately? Yes 05/28/2025 8:00 AM Saadia Schmitt RN 1. Wish to be (Past 1 Month) No 025 8:00 AM Saadia Schmitt RN 2. Non-Specific Active Suici shawn Thoughts (Past 1 Month) No 05/28/2025 8:00 AM Chioma Schmitt RN 6. Suicidal Behavior (Lifetime) No 8:00 AM Saadia Schmitt RN * [facility] 6-Clicks Mobility Assessment Question Answer Date of Assessment Author Difficulty patient has turni ng over in bed (including adjusting bedclothes, sheets, and blankets)? 4 05/25/2025 10:01 AM Pinky Woodruff Difficulty patient has sitti ng down on and standing up from a chair with arms (wheelchair, bedside commode, etc.)? 4 05/25/2025 10:01 AM Darius Woodruff Difficulty patient has movin g from lying on back to sitting on the side of the bed? 4 05/25/2025 10:01 AM Darius Woodruff How much help does the patie nt need moving to and from a bed to a chair (including a wheelchair)? 4 05/25/2025 10:01 AM EST Vahid Overton How much help does the patie nt need to walk in hospital room? 3 05/25/2025 10:01 AM Pinky Woodruff How much help does the patie nt need climbing 3-5 steps with a railing? 3 05/25/2025 10:01 AM Darius Arredondo [facility] 6-Clicks Mobility Asse ssment Total 22 05/25/2025 10:01 AM Darius Woodruff * OT Therapeutic Procedures Time Entry Question Answer Date of Assessment Author Therapeutic Activity Time Entry 24 10:06 AM Nellie Fisher * HEENT Question Answer Date of Assessment Author HEENT (WDL) X 05/28/2025 8:00 AM Saadia Almodovar RN R Ear Mildly impaired hearing 05/28/2025 8:00 A M Saadia Schmitt RN L Ear Mildly impaired hearing 05/28/2025 8:00 A M Saadia Schmitt RN Teeth Missing teeth 05/28/2025 8:00 AM Saadia Beltran RN Head and Face Swelling 05/28/2025 8:00 AM Saadia Beltran RN * Presentation Question Answer Date of Assessment Author Post-Session Comments Patient left with all needs within reach and positioned for comfort 05/25/2025 10:01 AM Darius Woodruff * Activity Management Answer Date of Assessment Author activity adjusted per tolera nce;activity encouraged 05/28/2025 10:14 AM Saadia Schmitt RN * Infection Management Answer Date of Assessment Author aseptic technique maintained 05/28/2025 10:14 AM Saadia Schmitt RN * Activity Assistance Provided Answer Date of Assessment Author assistance, stand-by 05/28/2025 10:14 AM Saadia Beaver RN * Adaptive Equipment Use Answer Date of Assessment Author used with assistance 05/28/2025 10:14 AM Saadia Beaver RN * Supportive Measures Answer Date of Assessment Author active listening utilized;re laxation techniques promoted;self-care encouraged;verbalization of feelings encouraged 05/27/2025 10:05 PM Akanksha Hooker RN * Oral Nutrition Promotion Answer Date of Assessment Author physical activity promoted 05/27/2025 10:05 PM Akanksha Subramanian RN * Pressure Reduction Techniques Answer Date of Assessment Author frequent weight shift encouraged 05/28/2025 10:1 4 AM Saadia Schmitt RN * Safety Promotion/Fall Prevention Answer Date of Assessment Author activity supervised;room org anization consistent;safety round/check completed;fall prevention program maintained;clutter-free environment maintained;lighting adjusted;nonskid shoes/slippers when out of bed 05/28/2025 10:14 AM Saadia Schmitt RN * Pain Management Interventions Answer Date of Assessment Author medication (see MAR);quiet e nvironment facilitated 05/28/2025 10:14 AM Saadia Schmitt RN * Fever Reduction/Comfort Measures Answer Date of Assessment Author lightweight bedding;lightweight clothing 025 10:14 AM Saadia Schmitt RN * Sensory Stimulation Regulation Answer Date of Assessment Author care clustered;lighting decreased 05/27/2025 10: 05 PM Akanksha Hooker RN * Complementary Therapy Answer Date of Assessment Author music therapy provided 05/26/2025 10:40 AM Murtaza Kaminski RN * Trust Relationship/Rapport Answer Date of Assessment Author care explained;choices provi ded;emotional support provided;thoughts/feelings acknowledged;questions encouraged;questions answered 05/28/2025 10:14 AM Saadia Schmitt RN * Pressure Reduction Devices Answer Date of Assessment Author positioning supports utilized 05/28/2025 10:14 A M Saadia Schmitt RN * Diversional Activities Answer Date of Assessment Author television 05/27/2025 10:05 PM Akanksha Hooker RN * Nutrition Interventions Answer Date of Assessment Author food preferences provided 05/27/2025 10:05 PM Akanksha Maradiaga RN * Infection Prevention Answer Date of Assessment Author equipment surfaces disinfect ed;hand hygiene promoted;single patient room provided;environmental surveillance performed;rest/sleep promoted 05/27/2025 10:05 PM Akanksha Hooker, DEANNA * Outcome Evaluation Answer Date of Assessment Author pt agrees with POC 05/27/2025 10:05 PM Akanksha Stevenson, DEANNA * Bowel Elimination Promotion Answer Date of Assessment Author adequate fluid intake promot ed;ambulation promoted;commode/bedpan at bedside 05/27/2025 10:05 PM Akanksha Hooker RN * Spiritual Activities Assistance Answer Date of Assessment Author affirmation provided 05/27/2025 10:05 PM Akanksha Valiente RN * Sleep/Rest Enhancement Answer Date of Assessment Author awakenings minimized;regular sleep/rest pattern promoted;natural light exposure provided 05/27/2025 10:05 PM Akanksha Hooker RN * Medication Review/Management Answer Date of Assessment Author medications reviewed 05/28/2025 10:14 AM Saadia Beaver RN * Skin Protection Answer Date of Assessment Author incontinence pads utilized 05/28/2025 10:14 AM Saadia Palacios RN * Self-Care Promotion Answer Date of Assessment Author independence encouraged;meal set-up provided;BADL personal objects within reach 05/28/2025 10:14 AM Saadia Schmitt RN * Isolation Precautions Answer Date of Assessment Author precautions maintained 05/28/2025 10:14 AM Saadia Andrew RN * Safety Interventions Question Answer Date of Assessment Author Safety Precautions/Falls Reduction treatment room near department station;fall reduction program maintained 05/20/2025 11:10 AM Ligia Forbes RN All Alarms alarm(s) activated a nd audible 05/20/2025 11:10 AM Ligia Forbes RN * General Emergency Care CPG Interventions Question Answer Date of Assessment Author Coping Interventions questions answered;reassurance provided;education/info rmation provided;emotional support provided;safe, supportive environment facilitated;care explained to patient/family prior to performing 05/20/2025 11:10 AM Ligia Forbes RN General Care Management calm environment promoted;family presence promoted;normothermia promoted;positioned for comfort;pain relief monitored 05/20/2025 11:10 AM Ligia Forbes RN * Activity and Hygiene Care Question Answer Date of Assessment Author Assistive Device Utilized lift device 05/23/2025 9:22 AM Kajal Eldridge RN * Precautions Question Answer Date of Assessment Author Left Lower Extremity Weight Bearing Status WBAT 05/21/2025 1:32 PM Darius Woodruff Right Lower Extremity Weight Bearing Status WBAT 05/21/2025 1:32 PM Darius Woodruff Medical Precautions Fall precautions 05/21/2025 1:32 P M Darius Woodruff Right Upper Extremity Weight Bearing Status WBAT 05/21/2025 1:32 PM Darius Woodruff Left Upper Extremity Weight Bearing Status WBAT 05/21/2025 1:32 PM Darius Woodruff * Participants in Care Question Answer Date of Assessment Author Family/Caregiver Present N 05/25/2025 10:06 AM Nellie Fisher * Presentation Question Answer Date of Assessment Author Lines and Tubes Intravenous access 05/25/2025 10:06 AM Nellie Fisher Pre-Session Supine;Head of bed elevated;Lines intact 05/25/2025 10:06 AM Nellie Fisher Post-Session Sitting in chair;Lory es intact;Chair alarm;Call light in reach 05/25/2025 10:06 AM Nellie Fisher * [facility] Question Answer Date of Assessment Author [facility] Daily Mobility Score 8 05/25/2025 10 :01 AM Darius Woodruff * Bed Mobility Exam: Scooting/Bridging Question Answer Date of Assessment Author Level of Jerome Stand-by assist 05/25/2025 10:01 AM Darius Woodruff Physical/Nonphysical Assist Supervision 05/25/2025 10 :01 AM Darius Woodruff * Bed Mobility Exam: Supine to Sit Question Answer Date of Assessment Author Level of Jerome Stand-by assist 05/25/2025 10:06 AM Nellie Fisher Physical/Nonphysical Assist Supervision 05/25/2025 10 :06 AM Nellie Fisher * Transfer Exam: Sit to stand Question Answer Date of Assessment Author Level of Jerome Stand-by assist 05/25/2025 10:06 AM Nellie Fisher Physical/Nonphysical Assist Supervision 05/25/2025 10 :06 AM Nellie Fisher Assistive Device Walker, rolling 05/25/2025 10:06 AM Nellie Eduardo * Transfer Exam: Stand to Sit Question Answer Date of Assessment Author Level of Jerome Stand-by assist 05/25/2025 10:06 AM Noemi Fisherna Physical/Nonphysical Assist Supervision 05/25/2025 10 :06 AM EST Marleny Nellie Assistive Device Walker, rolling 05/25/2025 10:06 AM E Nellie Bishop * Transfer Exam: Bed to Chair/Chair to Bed Question Answer Date of Assessment Author Level of Jerome Stand-by assist 05/25/2025 10:06 AM EST Marleny Nellie Physical/Nonphysical Assist Supervision 05/25/2025 10 :06 AM EST Marleny, Nellie Assistive Device Walker, rolling 05/25/2025 10:[address] Nellie Farmer * UE Dressing Question Answer Date of Assessment Author UE Dressing Where Assessed Edge of bed 05/21/2025 10: 40 AM Nellie Fisher UE Dressing Level of Assistance Minimum assistance 05/21/2025 10:40 AM Nellie Fisher * Lower Extremity Dressing Question Answer Date of Assessment Author LE Dressing Where Assessed Edge of bed 05/25/2025 10: 06 AM Nellie Fisher Pants Level of Assistance Minimum assistance 10:40 AM KIKO Farmer Nellie Sock Level of Assistance Minimum assistance 05/25/2025 10:06 AM Nellie Fisher * Toileting Question Answer Date of Assessment Author Toileting Interventions pt continues to use purewick system for urination but does display functional capacity to use urinal, BSC or walk to bathroom 05/25/2025 10:06 AM Nellie Fisher * General Question Answer Date of Assessment Author Next [place] Re-Assessment Date [id number] 05/21/2025 1:33 PM Darius Woodruff Patient/Family Goals Statement Patient stated desire to return home 05/21/2025 1:33 PM Darius Woodruff * Plan Question Answer Date of Assessment Author Predicted Duration of Therapy 2 weeks 05/21/2025 1:32 PM Darius Woodruff Discharge Recommendation Home with assistance 1:32 PM Darius Woodruff Equipment Recommended Patient owns appropriate equipment 05/21/2025 1:32 PM Darius Woodruff Planned PT Interventions Balance trainin g;Bed mobility training;Gait training;Transfer training;Strengthening; Functional Mobility 05/21/2025 1:32 PM Darius Woodruff Therapy Frequency 2 - 5 times per week 1:32 PM Darius Woodruff * PT Assessment Question Answer Date of Assessment Author Activity Limitations Inability to ambula te independently;Inability to transfer independently;Inability to complete ADLs independently 05/21/2025 1:32 PM Darius Woodruff Participation Restrictions Self-care;Home management;Community leisure 05/21/2025 1:32 PM Darius Woodruff History Profile 1 - 2 personal facto rs and/or comorbidities 05/21/2025 1:32 PM Darius Woodruff Impairments Impaired balance;Imp aired functional mobility/transfers;Impaire d locomotion 05/21/2025 1:32 PM Darius Woodruff Diagnosis Impaired functional mobility 05/21/2025 1:32 PM Darius Woodruff Clinical Presentation Evolving clinical presentation with changing characteristics 05/21/2025 1:32 PM Darius Woodruff Clinical Decision Making Moderate complexity 1:32 PM Darius Woodruff Rehab Potential Good, to achieve sta kalyani therapy goals 05/21/2025 1:32 PM Darius Woodruff * Ambulation Question Answer Date of Assessment Author Distance 300 ft. 05/25/2025 10:01 AM Darius Smith Device Rolling walker 05/25/2025 10:01 AM Darius Osorio Assistance Standby assist 05/25/2025 10:01 AM Darius Osorio Ambulation Comments Patient demonstrates decreased gait speeed and agustin with no loss of balance 05/25/2025 10:01 AM Darius Woodruff * Plan of Care Reviewed With Answer Date of Assessment Author patient 05/28/2025 10:14 AM Saadia Schmitt RN * Head of Bed (HOB) Positioning Answer Date of Assessment Author HOB elevated 05/28/2025 10:14 AM Saadia Schmitt, DEANNA * Pressure Injury Prevention (PIP) Interventions Question Answer Date of Assessment Author Pressure Reducing Devices Pillow 05/28/2025 8:00 AM Saadia Schmitt, DEANNA Bed Type Acute Care Bed 05/28/2025 8:00 AM EST Saadia Antunez RN * Vital Signs Question Answer Date of Assessment Author BP 113/80 05/28/2025 7:55 AM EST Inter face, Doc Flowsheet In Temp 97.9 05/28/2025 7:55 AM EST Inter face, Doc Flowsheet In Pulse 86 05/28/2025 7:55 AM EST Inter face, Doc Flowsheet In MAP (mmHg) 91 05/28/2025 7:55 AM EST Inter face, Doc Flowsheet In * Oxygen Therapy Question Answer Date of Assessment Author SpO2 92 05/28/2025 7:55 AM EST Mike face, Doc Flowsheet In Oximetry Probe Site Changed No 05/20/2025 3:03 PM EST Anders Michel CNA Oxygen Therapy None 05/28/2025 8:00 AM EST Saadia Antunez RN Oximetry Probe Site Location Left Digit 05/20/2025 8:10 PM EST Bao Mercado C NA * Height and Weight Question Answer Date of Assessment Author Weight 3195.79 05/28/2025 5:59 AM Akanksha Stevenson RN BSA (Calculated - sq m) 2.07 05/28/2025 5:59 A M Akanksha Hooker RN BMI (Calculated) 31.28 05/28/2025 5:59 AM Akanksha Jamil RN * Vitals Question Answer Date of Assessment Author Resp 14 05/28/2025 6:59 AM Akanksha Stevenson RN Heart Rate Source Monitor 05/28/2025 2:13 AM Akanksha Hooker RN * Neurological Question Answer Date of Assessment Author Neuro (WDL) WDL 05/28/2025 4:00 AM Akanksha Stevenson RN * Vocational Horticulture Instructor Question Answer Date of Assessment Author Telemetry Audible No 05/26/2025 4:00 PM Murtaza Garcia RN Telemetry Alarms Set No 05/26/2025 4:00 PM Murtaza Banks RN * Gastrointestinal Question Answer Date of Assessment Author Most Recent BM Date [id number] 05/27/2025 8:00 PM Akanksha Maradiaga RN Passing Flatus Yes 05/26/2025 4:00 PM EST Murtaza Calvin RN Abdominal Tenderness Nontender 05/28/2025 8:[address] Saadia Lazcano RN Bowel Sounds (All Quadrants) Active 05/28/2025 8 :00 AM Saadia Schmitt RN Gastrointestinal (WDL) X 05/28/2025 8:00 AM Saadia Schmitt RN Abdomen Inspection Distended;Rounded 05/28/2025 8:00 A M EST Saadia Lazcano RN Hernia Umbilical 05/25/2025 4:00 AM EST Subha Crump RN GI Symptoms Distention 05/28/2025 8:00 AM EST Saadia Spain RN Relieved by HOB elevated 05/28/2025 8:00 AM Saadia Almodovar RN Gastrointestinal Additional Assessments No 05/25/2025 4:00 AM EST Subha Iverson RN * Peripheral Vascular Question Answer Date of Assessment Author Peripheral Vascular (WDL) X 05/28/2025 8:00 AM Saadia Schmitt RN RLE Edema +1 05/28/2025 8:00 AM Saadia Almodovar RN LLE Edema +1 05/28/2025 8:00 AM Saadia Almodovar RN Capillary Refill Less than/equal to 2 seconds (All extremities) 05/28/2025 8:00 AM Saadia Schmitt RN Pulses R radial;L radial;R pedal;L pedal 05/28/2025 8:00 AM Saadia Schmitt RN Cyanosis None 05/28/2025 8:00 AM Saadia Almodovar RN Edema Right lower extremity;Left lower extremity 05/28/2025 8:00 AM Saadia Schmitt RN PVS Additional Assessments RLE;LLE 05/26/2025 4:00 PM EST Murtaza Couch RN * RUE Neurovascular Assessment Question Answer Date of Assessment Author R Radial Pulse +2 05/28/2025 8:00 AM Saadia Beaver RN * LUE Neurovascular Assessment Question Answer Date of Assessment Author L Radial Pulse +2 05/28/2025 8:00 AM Saadia Beaver RN * RLE Neurovascular Assessment Question Answer Date of Assessment Author RLE Capillary Refill Less than/equal to 2 seconds 05/28/2025 8:00 AM Saadia Schmitt RN RLE Color Blotchy;Red 05/26/2025 8:00 PM EST Desiree Jules RN RLE Temperature/Moisture Warm 05/26/2025 8:00 PM Desiree Pope RN R Pedal Pulse +2 05/28/2025 8:00 AM EST Saadia Bedolla RN * LLE Neurovascular Assessment Question Answer Date of Assessment Author LLE Capillary Refill Less than/equal to 2 seconds 05/28/2025 8:00 AM Saadia Schmitt RN LLE Color Blotchy;Red 05/26/2025 8:00 PM EST Desiree Jules RN LLE Temperature/Moisture Warm 05/26/2025 8:00 PM Desiree Pope RN L Pedal Pulse +2 05/28/2025 8:00 AM EST Saadia Bedolla RN * Musculoskeletal Details Question Answer Date of Assessment Author Lower Back Pain with movement 05/28/2025 8:00 AM Saadia Schmitt RN * Musculoskeletal Question Answer Date of Assessment Author RUE Full movement 05/28/2025 8:00 AM Saadia Beltran RN RLE Weakness 05/28/2025 8:00 AM Saadia Almodovar RN LUE Full movement 05/28/2025 8:00 AM Saadia Beltran RN LLE Weakness 05/28/2025 8:00 AM Saadia Almodovar RN Musculoskeletal (WDL) X 05/28/2025 8:00 AM Saadia Schmitt RN * Urine Assessment Question Answer Date of Assessment Author Urine Color Yellow/straw 05/28/2025 8:00 AM Saadia Almodovar RN Urine Appearance Clear 05/28/2025 8:00 AM Saadia Andrew RN Urinary Incontinence Yes 05/28/2025 8:00 AM E Saadia Ivey RN * Genitalia Question Answer Date of Assessment Author Male Genitalia Intact 05/28/2025 8:00 AM Saadia Beaver RN * Psychosocial Question Answer Date of Assessment Author Psychosocial (WDL) WDL 05/28/2025 8:00 AM Saadia Schmitt RN * Output (mL) Question Answer Date of Assessment Author Urine Odor No odor 05/23/2025 12:19 PM EST Janice Patrick M * [place] Fall Risk Question Answer Date of Assessment Author History of Falling, Immediat e or Within 3 Months 0 05/28/2025 8:00 AM Saadia Schmitt RN Secondary Diagnosis 15 05/28/2025 8:00 AM Saadia Guzman RN Ambulatory Aid 0 05/28/2025 8:00 AM Saadia Beaver RN Intravenous Therapy/Heparin Lock 20 05/28/20 8:00 AM Saadia Schmitt RN Gait/Transferring 0 05/28/2025 8:00 AM Saadia Schmitt RN Mental Status 0 05/28/2025 8:00 AM Saadia Beltran RN [place] Fall Risk Score 35 05/28/2025 8:00 AM Saadia Schmitt RN * Huber Scale Question Answer Date of Assessment Author Sensory Perceptions 4 05/28/2025 8:00 AM Saadia Guzman RN Moisture 4 05/28/2025 8:00 AM Saadia Almodovar RN Activity 3 05/28/2025 8:00 AM Saadia Almodovar RN Mobility 3 05/28/2025 8:00 AM Saadia Almodovar RN Nutrition 3 05/28/2025 8:00 AM Saadia Almodovar RN Friction and Shear 3 05/28/2025 8:00 AM Saadia Schmitt RN Huber Scale Score 20 05/28/2025 8:00 AM Saadia Schmitt RN * Pain Location Answer Date of Assessment Author Back 05/28/2025 5:59 AM Akanksha Hooker RN * Pain Orientation Answer Date of Assessment Author Bilateral 05/28/2025 5:59 AM Akanksha Hooker RN * Cardiac Question Answer Date of Assessment Author Telemetry Strip Reviewed Yes, I have reviewed and acknowledged. 05/23/2025 8:00 AM EST Kajal Dumont RN Cardiac Rhythm NSR 05/24/2025 4:00 AM EST Sydney Corcoran RN Ectopy Multifocal PVCs 05/23/2025 4:00 PM EST Kajal Mullen RN Ectopy Frequency Frequent 05/23/2025 4:00 PM EST Kajal Santos RN Radio Personality On No 05/28/2025 8:[address] Saadia Lazcano RN Cardiac (WDL) WDL 05/25/2025 8:00 AM EST Sidra Myers RN Telemetry/Vocational Horticulture Instructor No 05/25/2025 4:00 AM EST Subha Iverson R N * Respiratory Question Answer Date of Assessment Author Bilateral Breath Sounds Diminished 05/28/2025 8:00 A M EST Saadia Lazcano RN R Breath Sounds Diminished 05/28/2025 8:00 AM EST Saadia Jaramillo RN L Breath Sounds Diminished 05/28/2025 8:00 AM EST Saadia Jaramillo RN Respiratory Pattern Regular 05/26/2025 4:00 PM ES Murtaza Sandoval RN Chest Assessment Chest expansion symmetrical 05/26/2025 4:00 PM Murtaza Garcia RN Respiratory (WDL) X 05/28/2025 8:00 AM EST Saadia Lazcano RN Respiratory Effort Unlabored 05/26/2025 8:00 AM Murtaza Garcia RN Respiratory Depth/Rhythm Regular 05/26/2025 8:00 AM EST Murtaza Couch RN * RLE ROM Assessment Question Answer Date of Assessment Author RLE Assessment WFL 05/21/2025 1:32 PM EST Darius Ventura * LLE ROM Assessment Question Answer Date of Assessment Author LLE Assessment [facility] 05/21/2025 1:32 PM Darius Granados * Vitals Question Answer Date of Assessment Author Temcristhian src Oral 05/28/2025 2:13 AM EST Turle yJessy BP Location Left arm 05/28/2025 2:13 AM EST Turle y Jessy BP Method Automatic 05/28/2025 2:13 AM Jessy Hercules Pulse Oximetry Type Intermittent 05/22/2025 1:00 PM Maximus Payne Patient Activity During SpO2 Measurement At rest 05/22/2025 1:00 PM Maximus Juárez Patient Position Lying 05/28/2025 2:13 AM Jessy Etienne * Patient Information Question Answer Date of Assessment Author Accompanied by/Relationship none 05/21/2025 3:02 PM Jacki Cardona R N Support System Immediate family 05/21/2025 3:02 PM Jacki Cardona RN * Activities of Daily Living Question Answer Date of Assessment Author Equipment Currently Used at Home walker, rolling;shower chair 05/21/2025 3:02 PM Jacki Cardona RN Living Arrangements Alone 05/21/2025 3:02 PM Jacki Montes RN Type of Residence Private residence 05/21/2025 3:02 PM Jacki Cardona RN * Income Information Question Answer Date of Assessment Author Income Source Disabled 05/21/2025 3:02 PM Jacki Walton RN Income/Expense Information Income meets expenses 05/21/2025 3:02 PM Jacki Cardona RN Current Resources Utilized None 05/21/2025 3:02 PM Jacki Cadrona R N * Advance Directives (For Healthcare) Question Answer Date of Assessment Author Advance Directive Patient does not hav e advance directive 05/21/2025 1:21 AM Subha Dahl RN Pre-existing DNR/DNI Order No 05/21/2025 1:21 AM Subha Dahl R N Information Provided on Healthcare Directives No 05/21/2025 1:21 AM Subha Dahl RN Patient Requests Assistance No 05/21/2025 1:21 AM Subha Dahl R N Have you reviewed your Advance Directive and is it valid for this stay? No 05/20/2025 9:01 PM Robin Ortega RN * Nutrition Screen Question Answer Date of Assessment Author Difficulty Chewing or Swallowing No 05/21/20 1:24 AM Subha Dahl, facetor, Pressure Injury, or Non-Healing Wound No 05/21/2025 1:24 AM Subha Dahl R N Home Tube Feeding or Total Parenteral Nutrition (TPN) No 05/21/2025 1:24 AM Narciso Dahl RN Food allergy, Jain, or Cultural nutrition needs No 05/21/2025 1:24 AM Subha Dahl, R N * Pain Descriptors Answer Date of Assessment Author Aching 05/28/2025 5:59 AM Akaknsha Hooker RN * Pain Onset Answer Date of Assessment Author Awakened from sleep 05/28/2025 5:59 AM Akanksha Stevenson RN * Pain Frequency Answer Date of Assessment Author Constant/continuous 05/28/2025 5:59 AM Akanksha Stevenson RN * Trauma/Abuse Assessment Question Answer Date of Assessment Author Physical Abuse Denies 05/21/2025 1:24 AM Subha Alanis RN Verbal Abuse Denies 05/21/2025 1:24 AM Subha Brown RN * Values/Beliefs Question Answer Date of Assessment Author Cultural Requests During Hospitalization none 05/21/2025 1:24 AM Subha Dahl R N Spiritual Requests During Hospitalization none 05/21/2025 1:24 AM Subha Dahl, Heather Chandra Unable to assess No 05/21/2025 1:24 AM Subha Nicole RN * Genitourinary Question Answer Date of Assessment Author Genitourinary (WDL) X 05/28/2025 8:00 AM Saadia Guzman RN Genitourinary Symptoms Other (Comment) 05/28/2025 8:00 AM Saadia Schmitt RN * Neurological Question Answer Date of Assessment Author Level of Consciousness Alert 8:00 AM Saadia Schmitt RN Orientation Level Oriented X4 05/28/2025 8:0 0 AM Saadia Schmitt RN Cognition Follows commands 05/28/2025 8:00 AM Saadia Schmitt RN Speech Appropriate for developmental age 1105/28/2025 8:00 AM Saadia Schmitt RN L Pupil Reaction Brisk 05/28/2025 8:00 AM Saadia Schmitt RN L Pupil Size (mm) 3 05/28/2025 8:0 0 AM Saadia Schmitt RN R Pupil Reaction Brisk 05/28/2025 8:00 AM Saadia Schmitt RN R Pupil Size (mm) 3 05/28/2025 8:0 0 AM Saadia Schmitt RN Neuro (WDL) X 05/25/2025 8:00 AM Sidra Forman RN Swallow Able to swallow manuelito ds and liquids without difficulty 05/28/2025 8:00 AM Saadia Schmitt RN R Pupil Shape Round 05/28/2025 8:00 AM Saadia Schmitt RN L Pupil Shape Round 05/28/2025 8:00 AM Saadia Schmitt RN Pupil Assessment Yes 05/28/2025 8:00 AM Saadia Schmitt RN Hand Grasp/Motor Function/Sensation Assessment Grasp 05/28/2025 8:00 AM Saadia Schmitt RN * Height and Weight Question Answer Date of Assessment Author Height 67 05/20/2025 11:05 AM Ligia Bird RN * Prior Function Question Answer Date of Assessment Author Level of Mobility Ambulatory- community 05/21/2025 1:3 2 PM Darius Woodruff Mobility Jerome Independent gait w ith device 05/21/2025 1:32 PM Darius Woodrfuf History of Falls No 05/21/2025 1:32 PM Darius Arredondo ADL Performance Independent 05/21/2025 1:32 PM Darius Osorio Receives Help From No assist required p rior to admission 05/21/2025 1:32 PM Darius Woodruff * RUE ROM Assessment Question Answer Date of Assessment Author RUAna Assessment WF 05/21/2025 1:32 PM Darius Granados * LUE ROM Assessment Question Answer Date of Assessment Author DONNA Assessment [facility] 05/21/2025 1:32 PM Darius Granados * Safe Environment Question Answer Date of Assessment Author 37-Pin Connection [Bed and Wall] Yes 05/28/20 8:00 AM Saadia Schmitt RN Arm Bands On ID 05/28/2025 8:00 AM Saadia Almodovar RN Side Rails/Bed Safety 4/4 05/28/2025 8:00 AM Saadia Schmitt RN NonSkid Footwear On 05/28/2025 8:00 AM Saadia Andrew RN The Patient's Environment is Safe Yes 025 8:00 AM Saadia Schmitt RN Head of Bed Angle 35 05/28/2025 12:00 AM Akanksha Hooker RN Bed Foot Left Rail Up State Yes 05/28/2025 8: 00 AM Saadia Schmitt RN Bed Head Right Rail Up State Yes 05/28/2025 8 :00 AM Saadia Schmitt RN Bed Head Left Rail Up State Yes 05/28/2025 8: 00 AM Saadia Schmitt RN Bed Foot Right Rail Up State No 05/28/2025 8 :00 AM Saadia Schmitt RN Bed Exit System Activate Status Yes 8:00 AM Saadia Schmitt RN Bed Brake State Yes 05/28/2025 8:00 AM Saadia Dixon Ma, RN Bed Low Height State Yes 05/28/2025 8:00 AM Saadia Palacios RN Chair Exit System Activate Status No 4:00 AM Akanksha Hooker RN * Fall Risk Interventions Question Answer Date of Assessment Author Enhanced Safety Measures bed alarm set 05/28/2025 8:00 AM Saadia Schmitt RN Toilet Every 2 Hours-In Advance of Need Yes 05/28/2025 8:00 AM Saadia Schmitt RN Hourly Visual Checks Awake;In bed 05/28/2025 8:00 AM Saadia Palacios RN Room Door Open Yes 05/28/2025 8:00 AM Saadia Beaver RN Gait Belt Used For Transfers No (Comment) 05/28/2025 8:00 AM Saadia Schmitt RN Fall Bundle Components Call light within reach;Personal belongings within reach;Overbed table within reach;Bed in lowest position;Bed wheels locked 05/28/2025 8:00 AM Saadia Schmitt RN * Mobility Question Answer Date of Assessment Author Range of Motion active ROM (range of motion) encouraged 05/28/2025 4:00 AM Akanksha Hooker RN Body Position weight shifting 05/28/2025 12:00 AM Akanksha Hooker RN VTE Prevention/Management medication 05/28/2025 4:00 AM Akanksha Hooker RN Ambulation Response Tolerated well 05/27/2025 1 2:39 PM Alfredo Angelo CNA Repositioned Turns self;Prompted independent patient to reposition 05/28/2025 4:00 AM Akanksha Hooker RN Head of Bed Elevated Self regulated 05/28/2025 4:00 AM Akanksha Hooker RN Heels/Feet Heels elevated off bed;Foot of bed elevated 05/28/2025 4:00 AM Akanksha Hooker RN Positioning Frequency Able to turn self 05/28/20 8:00 AM Saadia Schmitt RN Early Mobility/Exercise Safety Screen Proceed with mobilization - No exclusion criteria met 05/21/2025 8:00 AM Annelise Massey RN * Hygiene Question Answer Date of Assessment Author Perineal Care perineum cleansed 05/27/2025 6:30 PM Alfredo Angelo CNA Bathing/Skin Care bath, partial;dressed/undre ssed;incontinence care;linen changed 05/27/2025 6:30 PM Alfredo Angelo CNA Oral Care oral rinse provided 05/27/2025 6:00 AM Desiree Beckford RN Oral Care (Yes/No) Yes 05/27/2025 6:00 AM Desiree Pope RN CHG (Chlorhexidine Gluconate) Hygiene Wipes 05/27/2025 6:30 PM Alfredo Angelo CNA * Precautions Question Answer Date of Assessment Author Precautions None 05/28/2025 8:00 AM Saadia Almodovar RN * Comfort and Environment Interventions Question Answer Date of Assessment Author Comfort Repositioned 05/28/2025 8:00 AM Saadia Almodovar RN Additional Comfort/Environmental Interventions Warm blanket 05/24/2025 1:29 PM EST Ayala Hernand ez, Blanca * Safety Equipment at Bedside Question Answer Date of Assessment Author Standard Bedside Safety Ambu bag/mask at bedside 05/28/2025 8:00 AM Saadia Schmitt RN Additional Bedside Safety Bed in locked and low position 05/28/2025 8:00 AM Saadia Schmitt RN * Consults Question Answer Date of Assessment Author Integrative Medicine Consult Needed No 05/21 1:25 AM Subha Dahl, DEANNA Pastoral Care Consult Needed No 05/21/2025 1 :25 AM Subha Dahl, pharmacy technician per diem Consult Needed No 05/21/2025 1:25 AM Subha Dahl, DEANNA * Therapy Consults Question Answer Date of Assessment Author PT Evaluation Needed 2 05/21/2025 1:25 AM Subha Voss RN OT Evaluation Needed 2 05/21/2025 1:25 AM Subha Voss RN BACTERIOLOGY PROFESSOR Evaluation Needed 2 05/21/2025 1:25 AM Subha Dahl, DEANNA * Assistive Devices Question Answer Date of Assessment Author Assistive Devices Cane;Walker 05/21/2025 1:21 AM Subha Dahl RN * Hourly Rounding Question Answer Date of Assessment Author Hourly Rounding Complete Per Guideline Yes 05/28/2025 10:00 AM Saadia Schmitt RN * Patient Violence Risk Assessment Question Answer Date of Assessment Author History of Violence: In the past 12 hours has the PATIENT exhibited any of the following? None 05/28/2025 8:00 AM Saadia Schmitt RN Potential for Violence: In the past 12 hours has the PATIENT exhibited any of the following? None 05/28/2025 8:00 AM Saadia Schmitt RN Risk No identified risk 05/28/2025 8:00 AM Saadia Scmhitt RN History of Violence: In the past 12 hours has a PARTNER IN CARE of the patient exhibited any of the following? None 05/28/2025 8:00 AM Saadia Schmitt RN * Restart Vitals Timer Answer Date of Assessment Author Yes 05/28/2025 2:13 AM Aminta Crabtree * STOP-Bang Questionnaire Question Answer Date of Assessment Author Do you snore loudly? 0 05/21/2025 1:24 AM Subha Voss RN Do you often feel tired or f atigued after your sleep? 1 05/21/2025 1:24 AM Subha Dahl R N Has anyone ever observed you stop breathing in your sleep? 1 05/21/2025 1:24 AM Subha Dahl RN Do you have or are you being treated for high blood pressure? 1 05/21/2025 1:24 AM Subha Dahl RN Is BMI greater than 35 kg/m2? 0=No 05/21/2025 1:24 AM Subha Dahl RN Age older than 50 years old? 1=Yes 05/21/2025 1 :24 AM Subha Dahl RN Is your neck circumference g reater than 17 inches (Male) or 16 inches (Female)? 1 05/21/2025 1:24 AM Subha Dahl R N Gender - Male 1=Yes 05/21/2025 1:24 AM uSbha Alcala RN STOP-Bang Total Score 6 05/21/2025 1:24 AM Subha Dahl RN Recent BMI (Calculated) 31.8 05/21/2025 1:24 A M Subha Dahl RN * Feeding Question Answer Date of Assessment Author Feeding Level of Assistance Setup 05/21/2025 10 :40 AM Nellie Fisher Feeding Where Assessed Chair Level 05/21/2025 10:40 A M Nellie Fisher * Grooming Question Answer Date of Assessment Author Grooming Where Assessed Edge of bed 05/25/2025 10:06 AM Nellie Fisher Grooming Level of Assistance Setup;SBA 05/25/2025 1 0:06 AM Nellie Fisher * General Question Answer Date of Assessment Author Next OT Reassessment [id number] 05/21/2025 10:40 AM Nellie Fisher Patient/Family Goals Statement agreeable to participation 05/25/2025 10:06 AM Nellie Fisher Date of OT Session [id number] 05/25/2025 10 :06 AM Nellie Fisher * Home Living Question Answer Date of Assessment Author Home Type Apartment 05/21/2025 1:32 PM Darius Woodruff Bathroom: Tub/Shower Walk-in shower;Grab bars;Built-in shower seat 05/21/2025 1:32 PM Darius Woodruff Bathroom: Toilet Tall 05/21/2025 1:32 PM Darius Arredondo Bathroom: Accessibility Accessible 05/21/2025 1:32 P M Darius Woodruff Home Layout One level 05/21/2025 1:32 PM Darius Woodruff Home Adaptive Equipment Rollator;Cane;sh ower chair 05/21/2025 1:32 PM Darius Woodruff Lives With Alone 05/21/2025 1:32 PM Darius Woodruff * Date of PT Session Question Answer Date of Assessment Author PT Initials AJS 05/25/2025 10:01 AM Darius Smith Date of PT Session [id number] 05/25/2025 10:01 AM Darius Funes * Calculated C-SSRS Risk Score (Lifetime/Recent) Answer Date of Assessment Author No Risk Indicated 05/28/2025 8:00 AM Saadia Schmitt RN * Bridgman Coma Scale Question Answer Date of Assessment Author Best Eye Response Spontaneous 05/28/2025 8:00 AM Saadia Schmitt RN Best Verbal Response Oriented 05/28/2025 8:00 AM Saadia Palacios RN Best Motor Response Follows commands 05/28/2025 8:00 A M Saadia Schmitt RN Bridgman Coma Scale Score 15 05/28/2025 8:00 AM Saadia Schmitt RN * Learning Assessment Question Answer Date of Assessment Author Education Level High school 05/20/2025 11:10 AM Ligia Desai RN Factors that Impact Ability to Learn None 05/20/2025 11:10 AM Ligia Forbes RN Cultural Considerations None 05/20/2025 11:10 AM Ligia Forbes RN Jain Considerations None 05/20/2025 11:10 AM Ligia Forbes RN * KINDER 1 Fall Risk Factor Assessment Question Answer Date of Assessment Author Presented to ED because of fall 0 05/20/2025 11:10 AM Ligia Forbes RN Age > 70 1 05/20/2025 11:10 AM Ligia Forbes RN Intoxicated with alcohol or substance confusion 0 05/20/2025 11:10 AM Ligia Forbes RN Ambulates or transfers with assistive devices or assist 1 05/20/2025 11:10 AM Ligia Forbes RN Unable to ambulate or transfer 0 05/20/2025 11:10 AM Ligia Forbes RN Nursing judgement 1 05/20/2025 11: 10 AM Ligia Forbes RN KINDER 1 Fall Risk Score 3 025 11:10 AM Ligia Forbes RN High Fall Risk Interventions for Scores 1 and above Fall risk bundle components in place as defined below;Non-skid socks on patient as appropriate;Side rails raised;Bed in lowest position and locked;Alarms set and confirmed;Call light within reach;Belongings within reach;Patient/family educated on additional fall prevention tips;Patient/family told to always call for assistance;Patient in area that is highly visible 05/20/2025 11:10 AM Ligia Forbes RN * Patient Belongings Placed in Locker Question Answer Date of Assessment Author Belongings at Bedside Retained by jim angeles and/or family/legal outside sales representative who assumes responsibility 05/20/2025 11:10 AM Ligia Forbes RN * HEENT Question Answer Date of Assessment Author HEENT (WDL) X 05/20/2025 7:30 PM Martha Romero RN HEENT Pertinent Negatives Vision/hearing clear;No drainage/congestion;No dysphagia 05/20/2025 7:30 PM Martha Ortega RN * Weight in (lb) to have BMI = 25 Answer Date of Assessment Author 159.3 05/20/2025 11:05 AM Antony Forbes RN * Pain Type Answer Date of Assessment Author Chronic pain 05/28/2025 5:59 AM Akanksha Hooker RN * Clinical Progression Answer Date of Assessment Author Not changed 05/28/2025 5:59 AM Akanksha Hooker RN * Pain Assessment Question Answer Date of Assessment Author Patient's Stated Pain Goal No pain 05/28/2025 8:00 AM EST Saadia Lazcano RN Patient is asleep Yes, assume pain is decreased 05/28/2025 6:59 AM EST Akanksha Molina RN Pain Score 0 05/28/2025 8:00 AM EST Saadia Spain RN Pain Assessment 0-10 (Adult DVPRS/Pe ds 0-10) 05/28/2025 8:00 AM EST Saadia Lazcano RN * Constipation Question Answer Date of Assessment Author Current Interventions Stool Softener 05/21/2025 8:00 P M EST Ashley Hanson RN * Nutrition Question Answer Date of Assessment Author Fluid Restrictions 1800 05/23/2025 8:00 PM EST Sydney Omalley RN Diet Type Regular 05/28/2025 8:00 AM Saadia Almodovar RN Feeding Able to feed self 05/28/2025 8:00 AM EST Saadia Lazcano RN Appetite Good 05/28/2025 8:00 AM EST Saadia Spain RN * Respiratory Interventions Question Answer Date of Assessment Author Respiratory Interventions Cough and deep breathing 05/28/2025 8:00 AM EST Saadia Lazcano RN * Cough and Deep Breathe Question Answer Date of Assessment Author Cough And Deep Breathing done independently per patient 05/28/2025 8:00 AM EST Saadia Lazcano RN * Genitourinary Additional Assessments Question Answer Date of Assessment Author Genitourinary Additional Assessments No 05/26/2025 4:00 PM EST Murtaza Couch RN * Integumentary Question Answer Date of Assessment Author Skin Color Appropriate for ethnicity 05/27/2025 4:00 PM EST Machelle Molina Skin Condition/Temp Warm 05/27/2025 4:00 PM EST Machelle Molina Skin Turgor Epidermis thin with loss of subcutaneous tissue 05/27/2025 4:00 PM EST Machelle Molina 4 Eyes Skin Assessment Completed Yes 05/21/2025 12:00 PM EST Annelise Koehler RN Manual Dual Sign Off 2nd RN DEANNA Montoya 05/21/2025 4:00 AM EST Subha Iverson RN Skin Tone Light 05/27/2025 4:00 PM EST Machelle Molina Integumentary (WDL) WDL 05/28/2025 8 :00 AM Saadia Schmitt RN * Patient Belongings Sent Home Question Answer Date of Assessment Author Belongings Sent Home Clothing 05/28/2025 10:33 AM Saadia Schmitt RN Clothing Pants;Shirt 05/28/2025 10:33 AM Saadia Beltran RN * Confusion Assessment Method (CAM) Question Answer Date of Assessment Author Acute Onset and Fluctuating Course (1A) No 05/28/2025 8:00 AM Saadia Schmitt RN * Confusion Assessment Method-ICU (CAM-ICU/PCAM-ICU) Question Answer Date of Assessment Author Feature 1: Acute Onset or Fluctuating Course Negative 05/28/2025 4:00 AM Akanksha Hooker RN * Feature 3: Altered Level of Consciousness Answer Date of Assessment Author Negative 05/28/2025 8:00 AM Saadia Schmitt RN * Overall CAM-ICU/PCAM-ICU Answer Date of Assessment Author Negative 05/28/2025 4:00 AM Akanksha Hooker RN * Sedation Scales Question Answer Date of Assessment Author RASS 0 05/28/2025 8:00 AM EST Saadia Spain RN * Stool Output/Assessment Question Answer Date of Assessment Author Unmeasured Stool Occurrence (hourly total) 1 05/26/2025 6:00 AM EST Desiree De Oliveira R N Stool Color Brown 05/26/2025 6:00 AM Desiree Eller RN Stool Amount Medium 05/26/2025 6:00 AM Desiree Eller RN Stool Appearance Formed 05/26/2025 6:00 AM EST Desiree Castillo RN Bowel Incontinence No 05/26/2025 8:00 AM EST Murtaza Couch RN * Patient Specific Goals Question Answer Date of Assessment Author Patient/Family-Specific Goals (Include Timeframe) patient safe by the end of the shift 05/28/2025 8:00 AM Saadia Schmitt RN Individualized Care Needs Patient safe b y the end of the shift 05/28/2025 8:00 AM Saadia Schmitt RN Anxieties, Fears or Concerns none 05/28/2025 8:00 AM Saadia Schmitt RN * Delirium Assessment Question Answer Date of Assessment Author Delirium Prevention & Management Yes 05/28/2025 8:00 AM Saadia Schmitt RN Delirium Prevention & Management: Early Mobility Ambulate to extent of patient's ability;Up to chair for meals;Out of room if possible;Educate patient and family about the benfits of early mobility in the hospital 05/28/2025 8:00 AM Saadia Schmitt RN Delirium Prevention & Management: Cognitive Engagement Familiar objects from home provided;Familiar social contact provided 05/28/2025 8:00 AM Saadia Schmitt RN Delirium Prevention & Management: Optimize Sleep/Wake Cycles Lighting decreased at night;Cluster care to decrease awakenings 05/28/2025 8:00 AM Saadia Schmitt RN Delirium Scale Used Confusion Assessment Method ICU/ PCAM ICU 05/28/2025 4:00 AM Akanksha Hooker RN * Mini Nutritional Assessment/Screening (Adults 65 and Older) Question Answer Date of Assessment Author A. Has food intake declined over the past 3 months due to loss of appetite, digestive problems, chewing or swallowing difficulties? 0 05/20/2025 9:01 PM Martha Dodd RN B. Weight loss during the 3 months 0 05/20/2025 9:01 PM Martha Ortega RN C. Mobility 1 05/20/2025 9:01 PM Martha Romero RN D. Has suffered psychologica l stress or acute disease in the past 3 months? 2 05/20/2025 9:01 PM Martha Ortega RN E. Neuropsychological problems 2 05/20/2025 9:01 PM Martha Ortega RN * F1. MNA Body Mass Index (BMI) (Weight in kg)/(Height in m)2 Answer Date of Assessment Author 3 05/20/2025 9:01 PM Lola Ortega RN * Mini Nutritional Screening Score Answer Date of Assessment Author 8 05/20/2025 9:01 PM Lola Ortega RN * Assume Pain is Present Answer Date of Assessment Author No 05/27/2025 8:40 PM Akanksha Hooker RN * F = Family/Partner in Care Engagement and Empowerment Question Answer Date of Assessment Author How did you engage the family/partner in care? No family/tree care foreman present at this time. Will reevaluate 05/26/2025 8:00 AM Murtaza Garcia RN How did the family/partner in care participate? No family/tree care foreman present at this time. Will reevaluate 05/26/2025 8:00 AM Murtaza Garcia RN * Malnutrition Screening Tool (MST) Question Answer Date of Assessment Author Have you recently lost weigh t without trying? 0 05/20/2025 9:01 PM Martha Ortega RN Have you been eating poorly because of a decreased appetite? 0 05/20/2025 9:01 PM Mynor Ortega, DEANNA * Weight Loss Score Answer Date of Assessment Author 0 05/20/2025 9:01 PM Lola Ortega RN * Malnutrition Score Answer Date of Assessment Author 0 05/20/2025 9:01 PM Lola Ortega RN * Hourly Rounding Question Answer Date of Assessment Author Activity Assistance Stand by assist 05/25/2025 4:00 AM Subha Dahl RN Toileting External collection device 05/25/2025 4:00 AM Subha Dahl RN Call Light Call light present a nd within reach 05/25/2025 4:00 AM Subha Dahl, DEANNA Rest/ Sleep No problem identified;Resting 05/25/2025 4:00 AM Subha Dahl, DEANNA Rest/ Sleep Enhancement Care clustered t o minimize awakenings 05/25/2025 12:00 AM Subha Dahl RN Completed Hourly Rounding Yes 05/24/2025 8:03 PM uSbha Dahl R N Plan of Care Reviewed With Patient 05/25/2025 4:00 AM Subha Dahl R N * Standardized Assessments Question Answer Date of Assessment Author Standardized Assessments [facility] 6-Clicks Mobility Assessment 05/25/2025 10:01 AM Darius Woodruff * [facility] 6-Click Daily Activities Question Answer Date of Assessment Author Help from Other: Don/Doff Re gular Lower Body Clothings 3 05/21/2025 10:40 AM Nellie Fisher Help From Other: Bathing 3 05/21/2025 10:40 AM Nellie Fisher Help From Other: Toileting 2 05/21/2025 10: 40 AM Nellie Fisher Help From Other: Don/Doff Up per Body Clothings 3 05/21/2025 10:40 AM Nellie Fisher Help From Other: Grooming 4 05/21/2025 10:4 0 AM Nellie Fisher Help From Other: Eating Meals 4 05/21/2025 10:40 AM Nellie Fisher [facility] 6 Click - Daily Activities Score 19 10:40 AM Nellie Fisher * Standardized Tests Question Answer Date of Assessment Author Standardized Tests [facility] 6-Clicks 05/21/2025 10:40 AM Nellie Fisher * [place]/Cubbin Scale Question Answer Date of Assessment Author Age (years) 1 05/28/2025 8:00 AM Saadia Almodovar RN Hemodynamics 4 05/28/2025 8:00 AM Saadia Almodovar RN Weight/Tissue Viability 3 05/28/2025 8:00 A M Saadia Schmitt RN Respiration 4 05/28/2025 8:00 AM Saadia Almodovar RN Past Medical History 4 05/28/2025 8:00 AM E Saadia Ivey RN Oxygen Requirments 4 05/28/2025 8:00 AM Saadia Schmitt RN General Skin Condition 4 05/28/2025 8:00 AM Saadia Schmitt RN Nutrition 4 05/28/2025 8:00 AM Saadia Almodovar RN Medical Condition 4 05/28/2025 8:00 AM Saadia Schmitt RN Incontinence 4 05/28/2025 8:00 AM Saadia Almodovar RN Mobility 4 05/28/2025 8:00 AM Saadia Almodovar RN Hygiene 3 05/28/2025 8:00 AM Saadia Almodovar RN Deduction if patient has bee n in surgery or transported to CT, MRI, or HBOT during last 48 hours 0 05/28/2025 8:00 AM Saadia Schmitt RN Deduction if patient has req uired blood or clotting factors during last 24 hours 0 05/28/2025 8:00 AM Saadia Schmitt RN Deduction if patient has hypothermia of 35 C or under (core temp) 0 05/28/2025 8:00 AM Leana Schmitt RN Nilton/Kaylie Pressure Risk Score 43 2024 8:00 AM Saadia Schmitt RN * Elopement Risk Screen Question Answer Date of Assessment Author Does the patient exhibit any of the following behaviors? No 05/28/2025 8:00 AM Saadia Schmitt RN Does the patient have a cour t ordered legal guardian? No 05/28/2025 8:00 AM Chioma Schmitt RN * Manual Muscle Testing - LLE Question Answer Date of Assessment Author Manual Muscle Testing [facility] 05/21/2025 1:32 PM Darius Woodruff * Manual Muscle Testing - RUE Question Answer Date of Assessment Author Manual Muscle Testing - RUE [facility] 05/21/2025 1: 32 PM Darius Woodruff * Manual Muscle Testing - LUE Question Answer Date of Assessment Author Manual Muscle Testing - LUE [facility] 05/21/2025 1: 32 PM Darius Woodruff * Cognition Question Answer Date of Assessment Author Mood/Behavior Alert 05/21/2025 1:32 PM Darius Woodruff Orientation Level Oriented X4 05/21/2025 1:3 2 PM Darius Woodruff Overall Cognitive Status [facility] 025 1:32 PM Darius Woodruff Arousal/Alertness Appropriate response s to stimuli 05/21/2025 1:32 PM Darius Woodruff Method of Communication Verbal 05/21/20 25 1:32 PM Darius Woodruff Single Step Commands Consistently 05/21/2025 1:32 PM Darius Woodruff Multi-Step Commands Consistently 05/21/2025 1 :32 PM Darius Woodruff * OT Assessment Question Answer Date of Assessment Author OT Assessment Results Impaired ADL performance;Impaired IADL performance;Decreased endurance/ventilation/ gas exchange;Impaired functional mobility 05/21/2025 10:40 AM Nellie Fisher Occupational Profile Brief history including review of medical/therapy records relating to presenting problem 05/21/2025 10:40 AM Nellie Fisher Clinical Decision Making Low 025 10:40 AM Nellie Fisher Overall Eval complexity Low 05/21/20 10:40 AM Nellie Fisher Evaluation/Treatment Tolerance Patient limited by fatigue 05/21/2025 10:40 AM Nellie Fisher Rehab Potential Good, to achieve stated therapy goals 05/21/2025 10:40 AM Nellie Fisher Performance Deficits Activities of daily living (ADLs);Instrumental activities of daily living (IADLs);Habits;Routine s;Body functions 05/21/2025 10:40 AM Nellie Fisher * C-SSRS (Frequent Screener) Question Answer Date of Assessment Author Is patient awake, alert, and able/willing to answer questions appropriately? Yes 05/28/2025 8:00 AM Saadia Schmitt RN 1. Wish to be (Past 1 Month) No 025 8:00 AM Saadia Schmitt RN 2. Non-Specific Active Suici shawn Thoughts (Past 1 Month) No 05/28/2025 8:00 AM Chioma Schmitt RN 6. Suicidal Behavior (Lifetime) No 8:00 AM Saadia Schmitt RN * [facility] 6-Clicks Mobility Assessment Question Answer Date of Assessment Author Difficulty patient has turni ng over in bed (including adjusting bedclothes, sheets, and blankets)? 4 05/25/2025 10:01 AM Pinky Woodruff Difficulty patient has sitti ng down on and standing up from a chair with arms (wheelchair, bedside commode, etc.)? 4 05/25/2025 10:01 AM Darius Woodruff Difficulty patient has movin g from lying on back to sitting on the side of the bed? 4 05/25/2025 10:01 AM Darius Woodruff How much help does the patie nt need moving to and from a bed to a chair (including a wheelchair)? 4 05/25/2025 10:01 AM Vahid Woodruff How much help does the patie nt need to walk in hospital room? 3 05/25/2025 10:01 AM Pinky Woodruff How much help does the patie nt need climbing 3-5 steps with a railing? 3 05/25/2025 10:01 AM Darius Arredondo [facility] 6-Clicks Mobility Asse ssment Total 22 05/25/2025 10:01 AM Darius Woodruff documented as of this encounter Mental Status * Time Calculation Question Answer Entry Date Author Start Time 12751 05/25/2025 10:06 AM Nellie Giordano Stop Time 39396 05/25/2025 10:06 AM Nellie Giordano Time Calculation (min) 24 05/25/2025 10:06 A M Nellie Fisher * OT Therapeutic Procedures Time Entry Question Answer Entry Date Author Self Care/Home Management (A DLs) Time Entry 10 05/21/2025 10:40 AM Nellie Fisher * HEENT Question Answer Entry Date Author KALYANI (EYADL) X 05/28/2025 8:00 AM Saadia Almodovar RN R Ear Mildly impaired hearing 05/28/2025 8:00 A M Saadia Schmitt RN L Ear Mildly impaired hearing 05/28/2025 8:00 A M Saadia Schmitt RN Teeth Missing teeth 05/28/2025 8:00 AM Saadia Beltran RN Head and Face Swelling 05/28/2025 8:00 AM Saadia Beltran RN * Presentation Question Answer Entry Date Author Post-Session Comments Patient left with all needs within reach and positioned for comfort 05/25/2025 10:01 AM Darius Woodruff * BMI (Calculated) Answer Entry Date Author 31.3 05/28/2025 5:59 AM Akanksha Hooker RN * Percent Excess Weight Loss Answer Entry Date Author 0 05/20/2025 11:05 AM Antony Forbes RN * Total Weight Change Percent Answer Entry Date Author 222105/28/2025 5:59 AM Akanksha Hooker RN * Weight Change Since Preop Answer Entry Date Author 90.58 05/28/2025 5:59 AM Akanksha Hooker RN * Initial Excess Weight Answer Entry Date Author -67.13 05/20/2025 11:05 AM Antony Forbes RN * IBW in lbs (Bariatric) Answer Entry Date Author 148 05/20/2025 11:05 AM Antony Forbes RN * Weight Change Since Last Visit Answer Entry Date Author 3 05/28/2025 5:59 AM Akanksha Hooker RN * IBW in kg (Bariatric) Answer Entry Date Author 67.13 05/20/2025 11:05 AM Antony Forbes RN * Percent of IBW Answer Entry Date Author 4,949.75 05/20/2025 11:05 AM Antony Forbes RN * EBW (kg) Answer Entry Date Author 3,320.87 05/20/2025 11:05 AM Antony Forbes RN * EBW (lbs) Answer Entry Date Author 3,313.52 05/20/2025 11:05 AM Antony Forbes RN * Activity Management Answer Entry Date Author activity adjusted per tolera nce;activity encouraged 05/28/2025 10:14 AM Saadia Schmitt RN * Progress Answer Entry Date Author improving 05/28/2025 10:14 AM Saadia Schmitt RN * Infection Management Answer Entry Date Author aseptic technique maintained 05/28/2025 10:14 AM Saadia Schmitt RN * Activity Assistance Provided Answer Entry Date Author assistance, stand-by 05/28/2025 10:14 AM Saadia Beaver RN * Adaptive Equipment Use Answer Entry Date Author used with assistance 05/28/2025 10:14 AM Saadia Beaver RN * Supportive Measures Answer Entry Date Author active listening utilized;re laxation techniques promoted;self-care encouraged;verbalization of feelings encouraged 05/27/2025 10:05 PM Akanksha Hooker, DEANNA * Oral Nutrition Promotion Answer Entry Date Author physical activity promoted 05/27/2025 10:05 PM Akanksha Subramanain RN * Pressure Reduction Techniques Answer Entry Date Author frequent weight shift encouraged 05/28/2025 10:1 4 AM Saadia Schmitt RN * Safety Promotion/Fall Prevention Answer Entry Date Author activity supervised;room org anization consistent;safety round/check completed;fall prevention program maintained;clutter-free environment maintained;lighting adjusted;nonskid shoes/slippers when out of bed 05/28/2025 10:14 AM Saadia Schmitt RN * Pain Management Interventions Answer Entry Date Author medication (see MAR);quiet e nvironment facilitated 05/28/2025 10:14 AM Saadia Schmitt RN * Fever Reduction/Comfort Measures Answer Entry Date Author lightweight bedding;lightweight clothing 025 10:14 AM Saadia Schmitt RN * Sensory Stimulation Regulation Answer Entry Date Author care clustered;lighting decreased 05/27/2025 10: 05 PM Akanksha Hooker RN * Complementary Therapy Answer Entry Date Author music therapy provided 05/26/2025 10:40 AM Murtaza Kaminski RN * Trust Relationship/Rapport Answer Entry Date Author care explained;choices provi ded;emotional support provided;thoughts/feelings acknowledged;questions encouraged;questions answered 05/28/2025 10:14 AM Saadia Schmitt RN * Pressure Reduction Devices Answer Entry Date Author positioning supports utilized 05/28/2025 10:14 A M Saadia Schmitt RN * Diversional Activities Answer Entry Date Author television 05/27/2025 10:05 PM Akanksha Hooker RN * Nutrition Interventions Answer Entry Date Author food preferences provided 05/27/2025 10:05 PM Akanksha Maradiaga RN * Infection Prevention Answer Entry Date Author equipment surfaces disinfect ed;hand hygiene promoted;single patient room provided;environmental surveillance performed;rest/sleep promoted 05/27/2025 10:05 PM Akanksha Hooker RN * Outcome Evaluation Answer Entry Date Author pt agrees with POC 05/27/2025 10:05 PM Akanksha Stevenson RN * Bowel Elimination Promotion Answer Entry Date Author adequate fluid intake promot ed;ambulation promoted;commode/bedpan at bedside 05/27/2025 10:05 PM Akanksha Hooker RN * Spiritual Activities Assistance Answer Entry Date Author affirmation provided 05/27/2025 10:05 PM Akanksha Valiente RN * Sleep/Rest Enhancement Answer Entry Date Author awakenings minimized;regular sleep/rest pattern promoted;natural light exposure provided 05/27/2025 10:05 PM Akanksha Hooker RN * Medication Review/Management Answer Entry Date Author medications reviewed 05/28/2025 10:14 AM Saadia Beaver RN * Skin Protection Answer Entry Date Author incontinence pads utilized 05/28/2025 10:14 AM E Saadia Ivey RN * Self-Care Promotion Answer Entry Date Author independence encouraged;meal set-up provided;BADL personal objects within reach 05/28/2025 10:14 AM Saadia Schmitt RN * Isolation Precautions Answer Entry Date Author precautions maintained 05/28/2025 10:14 AM Saadia Anderw RN * Safety Interventions Question Answer Entry Date Author Safety Precautions/Falls Reduction treatment room near department station;fall reduction program maintained 05/20/2025 11:10 AM Ligia Forbes RN All Alarms alarm(s) activated a nd audible 05/20/2025 11:10 AM Ligia Forbes RN * General Emergency Care CPG Interventions Question Answer Entry Date Author Coping Interventions questions answered;reassurance provided;education/infor mation provided;emotional support provided;safe, supportive environment facilitated;care explained to patient/family prior to performing 05/20/2025 11:10 AM Ligia Forbes RN General Care Management calm environment promoted;family presence promoted;normothermia promoted;positioned for comfort;pain relief monitored 05/20/2025 11:10 AM Ligia Forbes RN * Activity and Hygiene Care Question Answer Entry Date Author Assistive Device Utilized lift device 05/23/2025 9:22 AM Kajal Eldridge RN * Acuity/Destination Question Answer Entry Date Author Patient Acuity 3 05/20/2025 11:10 AM Ligia Fwoler RN Triage Complete Triage complete 05/20/2025 11:10 AM Ligia Harkins RN ED Destination Main 05/20/2025 11:10 AM Ligia Fowler RN * Weight Change 24 hrs Answer Entry Date Author 4.1 05/28/2025 5:59 AM Akanksha Hooker, DEANNA * Precautions Question Answer Entry Date Author Medical Precautions Fall precautions 05/21/2025 1:32 P M Darius Woodruff * Presentation Question Answer Entry Date Author Lines and Tubes Intravenous access 05/25/2025 10:06 AM Nellie Fisher * Delirium Assessment Question Answer Entry Date Author CAM-ICU/PCAM-ICU No 05/25/2025 10:06 AM Nellie Fisher * JHHLM Question Answer Entry Date Author HLM Daily Mobility Score 8 05/25/2025 10 :01 AM Darius Woodruff * General Question Answer Entry Date Author Next PT Re-Assessment Date [id number] 05/21/2025 1:3 3 PM Darius Woodruff * PT Assessment Question Answer Entry Date Author History Profile 1 - 2 personal facto rs and/or comorbidities 05/21/2025 1:32 PM Darius Woodruff Diagnosis Impaired functional mobility 1:32 PM Darius Woodruff Clinical Presentation Evolving clinical presentation with changing characteristics 05/21/2025 1:32 PM Darius Woodruff Clinical Decision Making Moderate complexity 1:32 PM Darius Woodruff Rehab Potential Good, to achieve sta kalyani therapy goals 05/21/2025 1:32 PM Darius Woodruff * Plan of Care Reviewed With Answer Entry Date Author patient 05/28/2025 10:14 AM Saadia Schmitt RN * Head of Bed (HOB) Positioning Answer Entry Date Author HOB elevated 05/28/2025 10:14 AM Saadia Schmitt, DEANNA * Pressure Injury Prevention (PIP) Interventions Question Answer Entry Date Author Pressure Reducing Devices Pillow 05/28/2025 8:00 AM Saadia Schmitt, DEANNA Bed Type Acute Care Bed 05/28/2025 8:00 AM Saadia Beaver, DEANNA * Vital Signs Question Answer Entry Date Author BP 113/80 05/28/2025 7:55 AM EST Inter face, Doc Flowsheet In Temp 97.9 05/28/2025 7:55 AM EST Inter face, Doc Flowsheet In Pulse 86 05/28/2025 7:55 AM EST Mike face, Nain Flowsheet In MAP (mmHg) 91 05/28/2025 7:55 AM EST Nain Urrutia Flowsheet In * Oxygen Therapy Question Answer Entry Date Author SpO2 92 05/28/2025 7:55 AM EST Nain Urrutia Flowsheet In Oximetry Probe Site Changed No 05/20/2025 3:03 PM EST Anders Michel CNA Oxygen Therapy None 05/28/2025 8:00 AM EST Saadia Antunez RN Oximetry Probe Site Location Left Digit 05/20/2025 8:10 PM EST Bao Mercado C NA * Height and Weight Question Answer Entry Date Author Weight 3195.79 05/28/2025 5:59 AM Akanksha Stevenson RN BSA (Calculated - sq m) 2.07 05/28/2025 5:59 A M Akanksha Hooker RN BMI (Calculated) 31.28 05/28/2025 5:59 AM Akanksha Jamil RN * Vitals Question Answer Entry Date Author Resp 14 05/28/2025 6:59 AM Akanksha Stevenson RN Heart Rate Source Monitor 05/28/2025 2:13 AM Akanksha Hooker RN * Neurological Question Answer Entry Date Author Neuro (CELIO) WDL 05/28/2025 4:00 AM Akanksha Stevenson RN * Cardiac Question Answer Entry Date Author Cardiac Regularity Regular 05/28/2025 4:00 AM Akanksha Hooker RN Cardiac (WDPerez) WDL 05/28/2025 4:00 AM Akanksha Cruz RN * Vocational Horticulture Instructor Question Answer Entry Date Author Telemetry Audible No 05/26/2025 4:00 PM Murtaza Garcia RN Telemetry Alarms Set No 05/26/2025 4:00 PM Murtaza Banks, RN Bedside Vocational Horticulture Instructor On No 05/26/2025 4:0 0 PM Murtaza Garcia RN Bedside Cardiac Audible No 05/26/2025 4:00 P M Murtaza Garcia RN Bedside Cardiac Alarms Set No 05/26/2025 4:0 0 PM Murtaza Garcia RN * Gastrointestinal Question Answer Entry Date Author Most Recent BM Date [id number] 05/27/2025 8 :00 PM Akanksha Hooker RN Passing Flatus Yes 05/26/2025 4:00 PM Murtaza Garcia RN Abdominal Tenderness Nontender 05/28/2025 8:00 AM Saadia Schmitt RN Bowel Sounds (All Quadrants) Active 8:00 AM Saadia Schmitt RN Gastrointestinal (WDL) X 8:00 AM Saadia Schmitt RN Abdomen Inspection Distended;Rounded 05/28/2025 8:00 AM Saadia Schmitt RN Hernia Umbilical 05/25/2025 4:00 AM Subha Dahl RN GI Symptoms Distention 05/28/2025 8:00 AM Saadia Schmitt RN Relieved by HOB elevated 05/28/2025 8:00 AM Saadia Schmitt RN Gastrointestinal Additional Assessments No 05/25/2025 4:00 AM Subha Dahl RN * Peripheral Vascular Question Answer Entry Date Author Peripheral Vascular (WDL) X 2024 8:00 AM Saadia Schmitt RN RLE Edema +1 05/28/2025 8:00 AM Saadia Schmitt RN LLE Edema +1 05/28/2025 8:00 AM Saadia Schmitt RN Capillary Refill Less than/equal to 2 seconds (All extremities) 05/28/2025 8:00 AM Saadia Schmitt RN Pulses R radial;L radial;R pedal;L pedal 05/28/2025 8:00 AM Saadia Schmitt RN Cyanosis None 05/28/2025 8:00 AM Saadia Schmitt RN Edema Right lower extremity;Left lower extremity 05/28/2025 8:00 AM Saadia Schmitt RN PVS Additional Assessments RLE;LLE 05/26/2025 4:00 PM Murtaza Garcia RN * RUE Neurovascular Assessment Question Answer Entry Date Author R Radial Pulse +2 05/28/2025 8:00 AM Saadia Beaver RN * LUE Neurovascular Assessment Question Answer Entry Date Author L Radial Pulse +2 05/28/2025 8:00 AM Saadia Beaver RN * RLE Neurovascular Assessment Question Answer Entry Date Author RLE Capillary Refill Less than/equal to 2 seconds 05/28/2025 8:00 AM Saadia Schmitt RN RLE Color Blotchy;Red 05/26/2025 8:00 PM Desiree Pope RN RLE Temperature/Moisture Warm 025 8:00 PM Desiree Pope RN R Pedal Pulse +2 05/28/2025 8:00 AM Saadia Schmitt RN * LLAna Neurovascular Assessment Question Answer Entry Date Author LLE Capillary Refill Less than/equal to 2 seconds 05/28/2025 8:00 AM Saadia Schmitt RN LLE Color Blotchy;Red 05/26/2025 8:00 PM Desiree Pope RN LLE Temperature/Moisture Warm 025 8:00 PM Desiree Pope RN L Pedal Pulse +2 05/28/2025 8:00 AM Saadia Schmitt RN * Musculoskeletal Details Question Answer Entry Date Author Lower Back Pain with movement 05/28/2025 8:00 AM Saadia Schmitt RN * Musculoskeletal Question Answer Entry Date Author RUE Full movement 05/28/2025 8:00 AM Saadia Beltran RN RLE Weakness 05/28/2025 8:00 AM Saadia Almodovar RN LUE Full movement 05/28/2025 8:00 AM Saadia Beltran RN LLE Weakness 05/28/2025 8:00 AM Saadia Almodovar RN Musculoskeletal (WDL) X 05/28/2025 8:00 AM Saadia Schmitt RN * Urine Assessment Question Answer Entry Date Author Urine Color Yellow/straw 05/28/2025 8:00 AM Saadia Almodovar RN Urine Appearance Clear 05/28/2025 8:00 AM Saadia Andrew RN Urinary Incontinence Yes 05/28/2025 8:[address] Saadia Lazcano RN * Genitalia Question Answer Entry Date Author Male Genitalia Intact 05/28/2025 8:00 AM EST Saadia Antunez RN * Psychosocial Question Answer Entry Date Author Psychosocial (WDL) WDL 05/28/2025 8:00 AM Saadia Schmitt RN * Intake Question Answer Entry Date Author [address] 05/23/2025 5:00 PM EST Kajal Dumont RN * Output (mL) Question Answer Entry Date Author Urine Odor No odor 05/23/2025 12:19 PM EST Ole lethaNickyBillyJanice brenner M * [place] Fall Risk Question Answer Entry Date Author History of Falling, Immediat e or Within 3 Months 0 05/28/2025 8:00 AM Saadia Schmitt RN Secondary Diagnosis 15 05/28/2025 8:00 AM Saadia Guzman RN Ambulatory Aid 0 05/28/2025 8:00 AM Saadia Beaver RN Intravenous Therapy/Heparin Lock 20 05/28/20 25 8:00 AM Saadia Schmitt RN Gait/Transferring 0 05/28/2025 8:00 AM Saadia Schmitt RN Mental Status 0 05/28/2025 8:00 AM Saadia Beltran RN Morse Fall Risk Score 35 05/28/2025 8:00 AM Saadia Schmitt RN * Huber Scale Question Answer Entry Date Author Sensory Perceptions 4 05/28/2025 8:00 AM Saadia Guzman RN Moisture 4 05/28/2025 8:00 AM Saadia Almodovar RN Activity 3 05/28/2025 8:00 AM Saadia Almodovra RN Mobility 3 05/28/2025 8:00 AM Saadia Almodovar RN Nutrition 3 05/28/2025 8:00 AM Saadia Almodovar RN Friction and Shear 3 05/28/2025 8:00 AM Saadia Schmitt RN Huber Scale Score 20 05/28/2025 8:00 AM Saadia Schmitt RN * Pain Location Answer Entry Date Author Back 05/28/2025 5:59 AM Akanksha Hooker RN * Pain Orientation Answer Entry Date Author Bilateral 05/28/2025 5:59 AM Akanksha Hooker RN * Cardiac Question Answer Entry Date Author Telemetry Strip Reviewed Yes, I have reviewed and acknowledged. 05/23/2025 8:00 AM Kajal Eldridge RN Cardiac Rhythm NSR 05/24/2025 4:00 AM EST Sydney Omalley RN Ectopy Multifocal PVCs 05/23/2025 4:00 PM EST Kajal Dumont RN Ectopy Frequency Frequent 05/23/2025 4:00 PM Kajal Eldridge RN Radio Personality On No 05/28/2025 8:00 AM Saadia Schmitt RN Cardiac (WDL) WDL 05/25/2025 8:00 AM Sidra Forman RN Telemetry/Vocational Horticulture Instructor No 05/25/2025 4:00 AM EST Subha Iverson RN * Respiratory Question Answer Entry Date Author Bilateral Breath Sounds Diminished 05/28/20 8:00 AM Saadia Schmitt RN R Breath Sounds Diminished 05/28/2025 8:00 AM Saadia Schmitt RN L Breath Sounds Diminished 05/28/2025 8:00 AM Saadia Schmitt RN Respiratory Pattern Regular 05/26/2025 4 :00 PM Murtaza Garcia RN Chest Assessment Chest expansion symmetrical 05/26/2025 4:00 PM Murtaza Garcia RN Respiratory (WDL) X 05/28/2025 8:0 0 AM Saadia Schmitt RN Respiratory Effort Unlabored 05/26/2025 8: 00 AM Murtaza Garcia RN Respiratory Depth/Rhythm Regular 025 8:00 AM Murtaza Garcia RN * Vitals Question Answer Entry Date Author Temp src Oral 05/28/2025 2:13 AM EST Jessy Valle BP Location Left arm 05/28/2025 2:13 AM EST Jessy Valle BP Method Automatic 05/28/2025 2:13 AM EST Jessy Valle Weight Method Standing scale 05/25/2025 10:57 AM Elsi Laurent Pulse Oximetry Type Intermittent 05/22/2025 1:00 PM Maximus Payne Patient Activity During SpO2 Measurement At rest 05/22/2025 1:00 PM Maximus Juárez Patient Position Lying 05/28/2025 2:13 AM Jessy Etienne * Patient Information Question Answer Entry Date Author Primary Caregiver Self 05/21/2025 3:0 2 PM Jacki Cardona RN Accompanied by/Relationship none 05/02 3:02 PM Jacki Cardona RN Support System Immediate family 05/21/2025 3:02 PM Jacki Cardona RN Patient's Education Level Middle school 2024 3:02 PM Jacki Cardona RN * Activities of Daily Living Question Answer Entry Date Author Equipment Currently Used at Home walker, rolling;shower chair 05/21/2025 3:02 PM Jacki Cardona RN Functional Status Minimum assistance 05/21/2025 3:02 PM Jacki Cardona RN Living Arrangements Alone 05/21/2025 3 :02 PM Jacki Cardona RN Type of Residence Private residence 05/21/2025 3 :02 PM Jacki Cardona RN Smoker in the Home? No 05/21/2025 3 :02 PM Jacki Cardona RN * Income Information Question Answer Entry Date Author Income Source Disabled 05/21/2025 3:02 PM Jacki Cardona RN Income/Expense Information Income meets expenses 05/21/2025 3:02 PM Jacki Cardona RN Current Resources Utilized None 05/21/2025 3:02 PM Jacki Cardona RN * Advance Directives (For Healthcare) Question Answer Entry Date Author Advance Directive Patient does not hav e advance directive 05/21/2025 1:21 AM Subha Dahl, DEANNA Pre-existing DNR/DNI Order No 05/21/2025 1:21 AM Subha Dahl, RN Information Provided on Healthcare Directives No 05/21/2025 1:21 AM Subha Dahl, RN Patient Requests Assistance No 05/21/2025 1:21 AM Subha Dahl, RN Have you reviewed your Advance Directive and is it valid for this stay? No 05/20/2025 9:01 PM Martha Ortega RN * Nutrition Screen Question Answer Entry Date Author Difficulty Chewing or Swallowing No 05/21/20 1:24 AM Subha Dahl RN Burn, Pressure Injury, or Non-Healing Wound No 05/21/2025 1:24 AM Subha Dahl R N Home Tube Feeding or Total Parenteral Nutrition (TPN) No 05/21/2025 1:24 AM Narciso Dahl RN Food allergy, Jain, or Cultural nutrition needs No 05/21/2025 1:24 AM Subha Dahl R N * Pain Descriptors Answer Entry Date Author Aching 05/28/2025 5:59 AM Akanksha Hooker RN * Pain Onset Answer Entry Date Author Awakened from sleep 05/28/2025 5:59 AM Akanksha Stevenson RN * Pain Frequency Answer Entry Date Author Constant/continuous 05/28/2025 5:59 AM Akanksha Stevenson RN * Trauma/Abuse Assessment Question Answer Entry Date Author Physical Abuse Denies 05/21/2025 1:24 AM Subha Alanis RN Verbal Abuse Denies 05/21/2025 1:24 AM Subha Brown RN * Values/Beliefs Question Answer Entry Date Author Cultural Requests During Hospitalization none 05/21/2025 1:24 AM Subha Dahl R N Spiritual Requests During Hospitalization none 05/21/2025 1:24 AM Subha Dahl R N Unable to assess No 05/21/2025 1:24 AM Subha Nicole RN * Genitourinary Question Answer Entry Date Author Genitourinary (WDL) X 05/28/2025 8:00 AM Saadia Guzman RN Genitourinary Symptoms Other (Comment) 05/28/2025 8:00 AM Saadia Schmitt RN * Neurological Question Answer Entry Date Author Level of Consciousness Alert 8:00 AM Saadia Schmitt RN Orientation Level Oriented X4 05/28/2025 8:0 0 AM Saadia Schmitt RN Cognition Follows commands 05/28/2025 8:0 0 AM Saadia Schmitt RN Speech Appropriate for developmental age 1105/28/2025 8:00 AM Saadia Schmitt RN L Pupil Reaction Brisk 05/28/2025 8:00 AM Saadia Schmitt RN L Pupil Size (mm) 3 05/28/2025 8:0 0 AM Saadia Schmitt RN R Pupil Reaction Brisk 05/28/2025 8:00 AM Saadia Schmitt RN R Pupil Size (mm) 3 05/28/2025 8:0 0 AM Saadia Schmitt RN Neuro (WDL) X 05/25/2025 8:00 AM EST Sidra Mixon RN Swallow Able to swallow manuelito ds and liquids without difficulty 05/28/2025 8:00 AM Saadia Schmitt RN R Pupil Shape Round 05/28/2025 8:00 AM Saadia Schmitt RN L Pupil Shape Round 05/28/2025 8:00 AM Saadia Schmitt RN Pupil Assessment Yes 05/28/2025 8:00 AM Saadia Schmitt RN Hand Grasp/Motor Function/Sensation Assessment Grasp 05/28/2025 8:00 AM Saadia Schmitt RN * Height and Weight Question Answer Entry Date Author Height 67 05/20/2025 11:05 AM Ligia Bird RN Height Method Estimated 05/20/2025 11:05 AM Ligia Malik RN * Safe Environment Question Answer Entry Date Author 37-Pin Connection [Bed and Wall] Yes 05/28/20 25 8:00 AM Saadia Schmitt RN Arm Bands On ID 05/28/2025 8:00 AM Saadia Almodovar RN Side Rails/Bed Safety 4/4 05/28/2025 8:00 AM Saadia Schmitt RN NonSkid Footwear On 05/28/2025 8:00 AM Saadia Andrew RN The Patient's Environment is Safe Yes 025 8:00 AM Saadia Schmitt RN Head of Bed Angle 35 05/28/2025 12:00 AM Akanksha Hooker RN Bed Foot Left Rail Up State Yes 05/28/2025 8: 00 AM Saadia Schmitt RN Bed Head Right Rail Up State Yes 05/28/2025 8 :00 AM Saadia Schmitt RN Bed Head Left Rail Up State Yes 05/28/2025 8: 00 AM Saadia Schmitt RN Bed Foot Right Rail Up State No 05/28/2025 8 :00 AM Saadia Schmitt RN Bed Exit System Activate Status Yes 8:00 AM Saadia Schmitt RN Bed Brake State Yes 05/28/2025 8:00 AM Saadia Dixon Ma, RN Bed Low Height State Yes 05/28/2025 8:00 AM Saadia Palacios RN Chair Exit System Activate Status No 4:00 AM Akanksha Hooker RN * Fall Risk Interventions Question Answer Entry Date Author Enhanced Safety Measures bed alarm set 8:00 AM Saadia Schmitt RN Toilet Every 2 Hours-In Advance of Need Yes 05/28/2025 8:00 AM Saadia Schmitt RN Hourly Visual Checks Awake;In bed 05/28/2025 8:00 AM Saadia Schmitt RN Room Door Open Yes 05/28/2025 8:00 AM Saadia Schmitt RN Gait Belt Used For Transfers No (Comment) 05/28/2025 8:00 AM Saadia Schmitt RN Fall Bundle Components Call light within reach;Personal belongings within reach;Overbed table within reach;Bed in lowest position;Bed wheels locked 05/28/2025 8:00 AM aSadia Schmitt RN * Mobility Question Answer Entry Date Author Range of Motion active ROM (range of motion) encouraged 05/28/2025 4:00 AM Akanksha Hooker RN Body Position weight shifting 05/28/2025 12:00 AM Akanksha Hooker RN VTE Prevention/Management medication 2024 4:00 AM Akanksha Hooker RN Ambulation Response Tolerated well 05/27/2025 1 2:39 PM Alfredo Angelo CNA Repositioned Turns self;Prompted independent patient to reposition 05/28/2025 4:00 AM Akanksha Hooker RN Head of Bed Elevated Self regulated 05/28/2025 4:00 AM Akanksha Hooker RN Heels/Feet Heels elevated off bed;Foot of bed elevated 05/28/2025 4:00 AM Akanksha Hooker RN Positioning Frequency Able to turn self 05/28/20 8:00 AM Saadia Schmitt RN Early Mobility/Exercise Safety Screen Proceed with mobilization - No exclusion criteria met 05/21/2025 8:00 AM Annelise Massey RN * Hygiene Question Answer Entry Date Author Perineal Care perineum cleansed 05/27/2025 6:3 0 PM Alfredo Angelo CNA Bathing/Skin Care bath, partial;dressed/undress ed;incontinence care;linen changed 05/27/2025 6:30 PM Alfredo Angelo CNA Oral Care oral rinse provided 05/27/2025 6 :00 AM Desiree Pope RN Oral Care (Yes/No) Yes 05/27/2025 6: 00 AM Desiree Pope RN CHG (Chlorhexidine Gluconate) Hygiene Wipes 05/27/2025 6:30 PM Alfredo Angelo CNA * Precautions Question Answer Entry Date Author Precautions None 05/28/2025 8:00 AM Saadia Almodovar RN * Comfort and Environment Interventions Question Answer Entry Date Author Comfort Repositioned 05/28/2025 8:00 AM Saadia Schmitt RN Additional Comfort/Environmental Interventions Warm blanket 05/24/2025 1:29 PM Blacna Sylvester * Safety Equipment at Bedside Question Answer Entry Date Author Standard Bedside Safety Ambu bag/mask at bedside 05/28/2025 8:00 AM Saadia Schmitt RN Additional Bedside Safety Bed in locked and low position 05/28/2025 8:00 AM Saadia Schmitt RN * IBW/kg (Calculated) Male Answer Entry Date Author 66.1 05/20/2025 11:05 AM Antony Forbes RN * IBW/kg (Calculated) Female Answer Entry Date Author 61.6 05/20/2025 11:05 AM Antony Forbes RN * Consults Question Answer Entry Date Author Integrative Medicine Consult Needed No 05/21 1:25 AM Subha Dahl, DEANNA Pastoral Care Consult Needed No 05/21/2025 1 :25 AM Subha Dahl, pharmacy technician per diem Consult Needed No 05/21/2025 1:25 AM Subha Dahl, DEANNA * Therapy Consults Question Answer Entry Date Author PT Evaluation Needed 2 05/21/2025 1:25 AM Subha Voss, DEANNA OT Evaluation Needed 2 05/21/2025 1:25 AM Subha Voss RN BACTERIOLOGY PROFESSOR Evaluation Needed 2 05/21/2025 1:25 AM Subha Dahl, DEANNA * Assistive Devices Question Answer Entry Date Author Assistive Devices Cane;Walker 05/21/2025 1:21 AM Subha Dahl, DEANNA * Hourly Rounding Question Answer Entry Date Author Hourly Rounding Complete Per Guideline Yes 05/28/2025 10:00 AM Saadia Schmitt RN * Patient Violence Risk Assessment Question Answer Entry Date Author History of Violence: In the past 12 hours has the PATIENT exhibited any of the following? None 05/28/2025 8:00 AM Saadia Schmitt RN Potential for Violence: In the past 12 hours has the PATIENT exhibited any of the following? None 05/28/2025 8:00 AM Saadia Schmitt RN Risk No identified risk 05/28/2025 8: 00 AM Saadia Schmitt RN History of Violence: In the past 12 hours has a PARTNER IN CARE of the patient exhibited any of the following? None 05/28/2025 8:00 AM Saadia Schmitt RN * Airway Question Answer Entry Date Author Airway ([facility]) [facility] 05/20/2025 11:00 PM EST Martha Britt RN * Breathing Question Answer Entry Date Author Breathing ([facility]) [facility] 05/20/2025 11:00 PM EST Martha Marti, RN * Circulation Question Answer Entry Date Author Circulation ([facility]) [facility] 05/20/2025 11:00 PM Martha Ortega RN * Disability Question Answer Entry Date Author Disability (WDL) WDL 05/20/2025 11:00 PM EST Martha Rodriguez, DEANNA * Restart Vitals Timer Answer Entry Date Author Yes 05/28/2025 2:13 AM EST Aminta Yung daytonrodolfo * IBW/kg (Calculated) Answer Entry Date Author 66.1 05/20/2025 11:05 AM EST Antony Jorgensen RN * STOP-Bang Questionnaire Question Answer Entry Date Author Do you snore loudly? 0 05/21/2025 1:24 AM Subha Voss RN Do you often feel tired or f atigued after your sleep? 1 05/21/2025 1:24 AM Subha Dahl R N Has anyone ever observed you stop breathing in your sleep? 1 05/21/2025 1:24 AM Subha Dahl RN Do you have or are you being treated for high blood pressure? 1 05/21/2025 1:24 AM Subha Dahl RN Is BMI greater than 35 kg/m2? 0=No 05/21/2025 1:24 AM Subha Dahl RN Age older than 50 years old? 1=Yes 05/21/2025 1 :24 AM Subha Dahl RN Is your neck circumference g reater than 17 inches (Male) or 16 inches (Female)? 1 05/21/2025 1:24 AM Subha Dahl R N Gender - Male 1=Yes 05/21/2025 1:24 AM Subha Alcala RN STOP-Bang Total Score 6 05/21/2025 1:24 AM Subha Dahl RN Recent BMI (Calculated) 31.8 05/21/2025 1:24 A M Subha Dahl RN * Date of PT Session Question Answer Entry Date Author PT Initials AJS 05/25/2025 10:01 AM Darius Smith Date of PT Session 18905 05/25/2025 10:01 AM Darius Funes * HARK Concern Calculation Answer Entry Date Author 1 05/21/2025 3:01 PM EST Yana Murphy RN * Food Insecurity Concern Calculation Answer Entry Date Author 1 05/21/2025 3:01 PM Yana Cardona RN * Transportation Needs Concern Calculation Answer Entry Date Author 1 05/21/2025 3:01 PM Yana Cardona RN * Housing Stability Concern Calculation Answer Entry Date Author 1 05/21/2025 3:01 PM Perez Cardona RN * Utilities Concern Calculation Answer Entry Date Author 1 05/21/2025 3:01 PM Yana Cardona RN * Calculated C-SSRS Risk Score (Lifetime/Recent) Answer Entry Date Author No Risk Indicated 05/28/2025 8:00 AM Saadia Schmitt RN * [place] Coma Scale Question Answer Entry Date Author Best Eye Response Spontaneous 05/28/2025 8:00 AM Saadia Schmitt RN Best Verbal Response Oriented 05/28/2025 8:[address] Saadia Lazcano RN Best Motor Response Follows commands 05/28/2025 8:00 A M Saadia Schmitt RN [place] Coma Scale Score 15 05/28/2025 8:00 AM Saadia Schmitt RN * Restart Pain Assessment Timer Answer Entry Date Author Yes 05/28/2025 8:00 AM Saadia Schmitt RN * MODESTA 1 Fall Risk Factor Assessment Question Answer Entry Date Author Presented to ED because of fall 0 05/20/2025 11:10 AM Ligia Forbes RN Age > 70 1 05/20/2025 11:10 AM Ligia Forbes RN Intoxicated with alcohol or substance confusion 0 05/20/2025 11:10 AM Ligia Forbes RN Ambulates or transfers with assistive devices or assist 1 05/20/2025 11:10 AM Ligia Forbes RN Unable to ambulate or transfer 0 05/20/2025 11:10 AM Ligia Forbes RN Nursing judgement 1 05/20/2025 11: 10 AM Ligia Forbes RN KINDER 1 Fall Risk Score 3 05/20/2 025 11:10 AM Ligia Forbes RN High Fall Risk Interventions for Scores 1 and above Fall risk bundle components in place as defined below;Non-skid socks on patient as appropriate;Side rails raised;Bed in lowest position and locked;Alarms set and confirmed;Call light within reach;Belongings within reach;Patient/family educated on additional fall prevention tips;Patient/family told to always call for assistance;Patient in area that is highly visible 05/20/2025 11:10 AM Ligia Forbes RN * Geriatric Triage Risk Screening Tool (TRST) Question Answer Entry Date Author TRST Assessment Total 2 05/20/2025 11:10 AM Ligia Forbes RN Cognitive impairment 0 05/20/2025 11:10 AM Ligia Forbes RN Five or more medications 1 05/20/2025 11:10 AM Ligia Forbes RN Difficulty walking/ transfer ring, or recent falls 1 05/20/2025 11:10 AM Ligia Forbes RN ED use in the last 30 days o r hospitalization in previous 90 days 0 05/20/2025 11:10 AM Ligia Forbes RN Lives alone and/ or no caregiver 0 05/20/20 11:10 AM Ligia Forbes RN ED staff concerns 0 05/20/2025 11:10 AM Ligia Forbes RN * [place] Suicide Severity Rating Scale Question Answer Entry Date Author Is patient awake, alert, and able to answer questions appropriately? Yes 05/20/2025 11:10 AM Ligia Desai RN * Patient Belongings Placed in Locker Question Answer Entry Date Author Belongings at Bedside Retained by jim angeles and/or family/legal outside sales representative who assumes responsibility 05/20/2025 11:10 AM Ligia Forbes RN * PROPERTY MANAGEMENT BOOKKEEPER Information Question Answer Entry Date Author Mode of Arrival [employer] 05/20/2025 11:04 AM Ligia Desai RN * HEENT Question Answer Entry Date Author KALYANI (CELIO) X 05/20/2025 7:30 PM Martha Ortega RN HEENT Pertinent Negatives Vision/hearing clear;No drainage/congestion;No dysphagia 05/20/2025 7:30 PM Martha Ortega RN * Peripheral Vascular Question Answer Entry Date Author Peripheral Vascular (CELIO) X 05/20/2025 7:30 PM Martha Ortega, DEANNA * Weight in (lb) to have BMI = 25 Answer Entry Date Author 159.3 05/20/2025 11:05 AM Antony Forbes RN * BMI (Calculated) Answer Entry Date Author 31.3 05/28/2025 5:59 AM Akanksha Hooker RN * Percent Excess Weight Loss Answer Entry Date Author 0 05/20/2025 11:05 AM Antony Forbes RN * Weight Change Since Preop Answer Entry Date Author 90.6 05/28/2025 5:59 AM Akanksha Hooker RN * Initial Excess Weight Answer Entry Date Author -67.13 05/20/2025 11:05 AM Antony Forbes RN * IBW in kg (Bariatric) Answer Entry Date Author 67.13 05/20/2025 11:05 AM Antony Forbes RN * IBW in lb (Bariatric) Answer Entry Date Author 148 05/20/2025 11:05 AM Antony Forbes RN * Weight Change Since Last Visit Answer Entry Date Author 3 05/28/2025 5:59 AM Akanksha Hooker RN * Percent of IBW Answer Entry Date Author 140.32 05/20/2025 11:05 AM Antony Forbes RN * EBW (kg) Answer Entry Date Author 27.05 05/20/2025 11:05 AM Antony Forbes RN * EBW (lb) Answer Entry Date Author 59.67 05/20/2025 11:05 AM Antony Forbes RN * Difference in Weight Since Last Visit Answer Entry Date Author 3 05/28/2025 5:59 AM Akanksha Hooker RN * Housing Circumstances-Z Codes Question Answer Entry Date Author Housing Circumstances (selec t all that apply) None Applicable 05/21/2025 3:02 PM Jacki Cardona RN * Pain Type Answer Entry Date Author Chronic pain 05/28/2025 5:59 AM Akanksha Hooker RN * Clinical Progression Answer Entry Date Author Not changed 05/28/2025 5:59 AM Akanksha Hooker RN * Anthropometrics Question Answer Entry Date Author Weight Change 3.42 05/28/2025 5:59 AM Akanksha Cruz RN * Temp (in Celsius) for CIRCLE IV Answer Entry Date Author 36.6 05/28/2025 7:55 AM EST Interface , Doc Flowsheet In * Pain Assessment Question Answer Entry Date Author Patient's Stated Pain Goal No pain 05/28/2025 8:00 AM Saadia Schmitt RN Patient is asleep Yes, assume pain is decreased 05/28/2025 6:59 AM Akanksha Hooker RN Pain Score 0 05/28/2025 8:00 AM Saadia Schmitt RN Pain Assessment 0-10 (Adult DVPRS/Pe ds 0-10) 05/28/2025 8:00 AM Saadia Schmitt RN * Constipation Question Answer Entry Date Author Current Interventions Stool Softener 05/21/2025 8:00 P M EST Ashley Hanson RN * Nutrition Question Answer Entry Date Author Fluid Restrictions 1800 05/23/2025 8:00 PM Sydney Munoz RN Diet Type Regular 05/28/2025 8:00 AM Saadia Almodovar RN Feeding Able to feed self 05/28/2025 8:00 AM Saadia Schmitt RN Appetite Good 05/28/2025 8:00 AM Saadia Almodovar RN * IBW/kg (Calculated) Answer Entry Date Author 66.1 05/20/2025 11:05 AM Antony Forbes RN * Adult Low Range Vt 6mL/kg Answer Entry Date Author 396.6 05/20/2025 11:05 AM Antony Forbes RN * Adult Moderate Range Vt 8mL/kg Answer Entry Date Author 528.8 05/20/2025 11:05 AM Antony Forbes RN * Adult High Range Vt 10mL/kg Answer Entry Date Author 661 05/20/2025 11:05 AM Antony Forbes RN * Respiratory Interventions Question Answer Entry Date Author Respiratory Interventions Cough and deep breathing 05/28/2025 8:00 AM EST Saadia Lazcano RN * Cough and Deep Breathe Question Answer Entry Date Author Cough And Deep Breathing done independently per patient 05/28/2025 8:00 AM EST Saadia Lazcano RN * Genitourinary Additional Assessments Question Answer Entry Date Author Genitourinary Additional Assessments No 05/26/2025 4:00 PM EST Murtaza Couch RN * Integumentary Question Answer Entry Date Author Skin Color Appropriate for ethnicity 05/27/2025 4:00 PM EST Machelle Molina Skin Condition/Temp Warm 05/27/2025 4 :00 PM EST Machelle Molina Skin Turgor Epidermis thin with loss of subcutaneous tissue 05/27/2025 4:00 PM EST Machelle Molina 4 Eyes Skin Assessment Completed Yes 05/21/2025 12:00 PM EST Annelise Koehler RN Manual Dual Sign Off 2nd DEANNA Montoya RN 05/21/2025 4:00 AM EST Subha Iverson RN Skin Tone Light 05/27/2025 4:00 PM EST Machelle Molina Integumentary (WDL) WDL 05/28/2025 8 :00 AM EST Saadia Lazcano RN * Patient Belongings Sent Home Question Answer Entry Date Author Belongings Sent Home Clothing 05/28/2025 10:33 AM EST Saadia Lazcano RN Clothing Pants;Shirt 05/28/2025 10:33 AM EST Saadia Bedolla RN * Skin Assessment Question Answer Entry Date Author Scale Used Huber 05/20/2025 9:01 PM EST Martha Avendano RN * Score Answer Entry Date Author 28.59 05/28/2025 11:26 AM EST Jan Deleon * Confusion Assessment Method (CAM) Question Answer Entry Date Author Acute Onset and Fluctuating Course (1A) No 05/28/2025 8:00 AM EST Saadia Lazcano RN * Confusion Assessment Method-ICU (CAM-ICU/PCAM-ICU) Question Answer Entry Date Author Feature 1: Acute Onset or Fluctuating Course Negative 05/28/2025 4:00 AM EST Akanksha Molina RN * Feature 3: Altered Level of Consciousness Answer Entry Date Author Negative 05/28/2025 8:00 AM EST Saadia Lazcano RN * Overall CAM-ICU/PCAM-ICU Answer Entry Date Author Negative 05/28/2025 4:00 AM EST Akanksha Molina RN * Sedation Scales Question Answer Entry Date Author Sedation Scale Used Lehman Agitation Sedation Scale 05/28/2025 8:00 AM Saadia Schmitt RN RASS 0 05/28/2025 8:00 AM Saadia Schmitt RN Pasero Opioid-Induced Sedation Scale (POSS) 1 05/28/2025 8:00 AM Saadia Schmitt RN * Stool Output/Assessment Question Answer Entry Date Author Unmeasured Stool Occurrence (hourly total) 1 05/26/2025 6:00 AM EST Desiree De Oliveira R N Stool Color Brown 05/26/2025 6:00 AM Desiree Eller RN Stool Amount Medium 05/26/2025 6:00 AM Desiree Eller RN Stool Appearance Formed 05/26/2025 6:00 AM EST Desiree Castillo RN Bowel Incontinence No 05/26/2025 8:00 AM EST Murtaza Couch RN * Fall Risk Calculated Score Answer Entry Date Author [place] Low 05/28/2025 8:00 AM Saadia Schmitt RN * Patient Specific Goals Question Answer Entry Date Author Patient/Family-Specific Goals (Include Timeframe) patient safe by the end of the shift 05/28/2025 8:00 AM Saadia Schmitt RN Individualized Care Needs Patient safe b y the end of the shift 05/28/2025 8:00 AM Saadia Schmitt RN Anxieties, Fears or Concerns none 8:00 AM Saadia Schmitt RN * Delirium Assessment Question Answer Entry Date Author Delirium Prevention & Management Yes 05/28/2025 8:00 AM Saadia Schmitt RN Delirium Prevention & Management: Early Mobility Ambulate to extent of patient's ability;Up to chair for meals;Out of room if possible;Educate patient and family about the benfits of early mobility in the hospital 05/28/2025 8:00 AM Saadia Schmitt RN Delirium Prevention & Management: Cognitive Engagement Familiar objects from home provided;Familiar social contact provided 05/28/2025 8:00 AM Saadia Schmitt RN Delirium Prevention & Management: Optimize Sleep/Wake Cycles Lighting decreased at night;Cluster care to decrease awakenings 05/28/2025 8:00 AM Saadia Schmitt RN Delirium Scale Used Confusion Assessment Method ICU/ PCAM ICU 05/28/2025 4:00 AM Akanksha Hooker RN * Mini Nutritional Assessment/Screening (Adults 65 and Older) Question Answer Entry Date Author A. Has food intake declined over the past 3 months due to loss of appetite, digestive problems, chewing or swallowing difficulties? 0 05/20/2025 9:01 PM Martha Dodd RN B. Weight loss during the 3 months 0 05/20/2025 9:01 PM Martha Ortega RN C. Mobility 1 05/20/2025 9:01 PM Martha Romero RN D. Has suffered psychologica l stress or acute disease in the past 3 months? 2 05/20/2025 9:01 PM Martha Ortega RN E. Neuropsychological problems 2 05/20/2025 9:01 PM Martha Ortega RN * F1. MNA Body Mass Index (BMI) (Weight in kg)/(Height in m)2 Answer Entry Date Author 3 05/20/2025 9:01 PM Lola Ortega RN * Mini Nutritional Screening Score Answer Entry Date Author 8 05/20/2025 9:01 PM Lola Ortega RN * Assume Pain is Present Answer Entry Date Author No 05/27/2025 8:40 PM Akanksha Hooker RN * Urine Output Question Answer Entry Date Author Urine 650 05/25/2025 6:26 AM EST Subha Crump RN * Follow Up Question Answer Entry Date Author [place] [address] 05/26/2025 2:[address] * Deterioration Index Score Question Answer Entry Date Author Deterioration Index Score 32.12 05/28/2025 11:1 5 AM EST Marleny Smith * Unplanned Readmission Scores Question Answer Entry Date Author Unplanned Readmission Score 27.78 05/28/2025 8: 00 AM EST Marleny Smith * F = Family/Partner in Care Engagement and Empowerment Question Answer Entry Date Author How did you engage the family/partner in care? No family/tree care foreman present at this time. Will reevaluate 05/26/2025 8:00 AM Murtaza Garcia RN How did the family/partner in care participate? No family/tree care foreman present at this time. Will reevaluate 05/26/2025 8:00 AM Murtaza Garcia RN * PRN Medication Given Reason Answer Entry Date Author pain 05/28/2025 5:59 AM Akanksha Hooker RN * Malnutrition Screening Tool (MST) Question Answer Entry Date Author Have you recently lost weigh t without trying? 0 05/20/2025 9:01 PM Martha Ortega RN Have you been eating poorly because of a decreased appetite? 0 05/20/2025 9:01 PM Mynor Ortega RN * Weight Loss Score Answer Entry Date Author 0 05/20/2025 9:01 PM Lola Ortega RN * Malnutrition Score Answer Entry Date Author 0 05/20/2025 9:01 PM Lola Ortega RN * Discharge Medication Bedside Delivery Question Answer Entry Date Author Meds to Beds Complete? Yes 11:12 AM Alexandra Jaquez CPhT Current Status Prescriptions Delive red - M2B Service Complete 05/28/2025 11:12 AM Alexandra Jaquez CPhT Is the patient interested in Medication Bedside Delivery at Discharge? Yes, interested 05/28/2025 10:43 AM Isabella Pacheco CPhT * Prachi Coma Scale Numeric Answer Entry Date Author 15 05/28/2025 8:00 AM Saadia Schmitt RN * Elevate heels task - custom formula Answer Entry Date Author 1 05/28/2025 4:00 AM Akanksha Hooker RN * Neurological Question Answer Entry Date Author Neuro Pertinent Negatives Alert and oriented x 4;Speech clear 05/20/2025 7:30 PM Martha Ortega RN Neuro (WDL) WDL 05/20/2025 7:30 PM Martha Ortega RN * Musculoskeletal Question Answer Entry Date Author Musculoskeletal Pertinent Negatives Moves all extremities;No injury;No deformity 05/20/2025 7:30 PM Martha Ortega, DEANNA Musculoskeletal (WDL) X 05/20/2025 7:30 PM Martha Ortega, DEANNA * Vitals Timer Question Answer Entry Date Author Update Vitals Alert Interval 240 05/20/2025 3 :03 PM Anders Moran CNA Restart Vitals Timer Yes 05/28/2025 2:13 AM E Jessy Hyde Restart Vitals Timer Yes 05/20/2025 3:03 PM E Anders Estevez CNA * Hourly Rounding Question Answer Entry Date Author Activity Assistance Stand by assist 05/25/2025 4 :00 AM Subha Dahl RN Toileting External collection device 05/25/2025 4:00 AM Subha Dahl RN Call Light Call light present a nd within reach 05/25/2025 4:00 AM Subha Dahl RN Rest/ Sleep No problem identified;Resting 05/25/2025 4:00 AM Subha Dahl RN Rest/ Sleep Enhancement Care clustered t o minimize awakenings 05/25/2025 12:00 AM Subha Dahl, DEANNA Completed Hourly Rounding Yes 2024 8:03 PM Subha Dahl RN Plan of Care Reviewed With Patient 05/25/2025 4:00 AM Subha Dahl, DEANNA * Non- Lethal Alarms Question Answer Entry Date Author Non-Lethal/Regular Alarms Leads off 05/23/2025 3:54 PM Denton Stafford * Communication Question Answer Entry Date Author Floor Staff Notification Method Secure chat 3:54 PM Denton Stafford Monitoring staff Called Floo r Staff Nurse 05/23/2025 3:54 PM Denton Stafford * [place] Scale Question Answer Entry Date Author Age (years) 1 05/28/2025 8:00 AM Saadia Almodovar RN Hemodynamics 4 05/28/2025 8:00 AM Saadia Almodovar, DEANNA Weight/Tissue Viability 3 05/28/2025 8:00 A M Saadia Schmitt RN Respiration 4 05/28/2025 8:00 AM Saadia Almodovar RN Past Medical History 4 05/28/2025 8:00 AM E Saadia Lazcano RN Oxygen Requirments 4 05/28/2025 8:00 AM Saadia Schmitt RN General Skin Condition 4 05/28/2025 8:00 AM Saadia Schmitt RN Nutrition 4 05/28/2025 8:00 AM Saadia Almodovar RN Medical Condition 4 05/28/2025 8:00 AM Saadia Schmitt RN Incontinence 4 05/28/2025 8:00 AM Saadia Almodovar RN Mobility 4 05/28/2025 8:00 AM Saadia Almodovar RN Hygiene 3 05/28/2025 8:00 AM Saadia Almodovar RN Deduction if patient has bee n in surgery or transported to CT, MRI, or HBOT during last 48 hours 0 05/28/2025 8:00 AM Saadia Schmitt RN Deduction if patient has req uired blood or clotting factors during last 24 hours 0 05/28/2025 8:00 AM Saadia Schmitt RN Deduction if patient has hypothermia of 35 C or under (core temp) 0 05/28/2025 8:00 AM Leana Schmitt RN Jackson/Kaylie Pressure Risk Score 43 2024 8:00 AM Saadia Schmitt RN * Elopement Risk Screen Question Answer Entry Date Author Does the patient exhibit any of the following behaviors? No 05/28/2025 8:00 AM Saadia Schmitt RN Does the patient have a cour t ordered legal guardian? No 05/28/2025 8:00 AM Chioma Schmitt RN * Cognition Question Answer Entry Date Author Mood/Behavior Alert 05/21/2025 1:32 PM Darius Woodruff Orientation Level Oriented X4 05/21/2025 1:3 2 PM Darius Woodruff Overall Cognitive Status WFL 025 1:32 PM Darius Woodruff Arousal/Alertness Appropriate response s to stimuli 05/21/2025 1:32 PM Darius Woodruff Method of Communication Verbal 05/21/20 1:32 PM Darius Woodruff Single Step Commands Consistently 05/21/2025 1:32 PM Darius Woodruff Multi-Step Commands Consistently 05/21/2025 1 :32 PM Darius Woodruff * C-SSRS (Frequent Screener) Question Answer Entry Date Author Is patient awake, alert, and able/willing to answer questions appropriately? Yes 05/28/2025 8:00 AM Saadia Schmitt, DEANNA 1. Wish to be (Past 1 Month) No 025 8:00 AM Saadia Schmitt RN 2. Non-Specific Active Suici shawn Thoughts (Past 1 Month) No 05/28/2025 8:00 AM Chioma Schmitt RN 6. Suicidal Behavior (Lifetime) No 8:00 AM Saadia Schmitt RN * [facility] 6-Clicks Mobility Assessment Question Answer Entry Date Author Difficulty patient has turni ng over in bed (including adjusting bedclothes, sheets, and blankets)? 4 05/25/2025 10:01 AM Pinky Woodruff Difficulty patient has sitti ng down on and standing up from a chair with arms (wheelchair, bedside commode, etc.)? 4 05/25/2025 10:01 AM Darius Woodruff Difficulty patient has movin g from lying on back to sitting on the side of the bed? 4 05/25/2025 10:01 AM Darius Woodruff How much help does the patie nt need moving to and from a bed to a chair (including a wheelchair)? 4 05/25/2025 10:01 AM Vahid Woodruff How much help does the patie nt need to walk in hospital room? 3 05/25/2025 10:01 AM Pinky Woodruff How much help does the patie nt need climbing 3-5 steps with a railing? 3 05/25/2025 10:01 AM [facility] 6-Clicks Mobility Asse ssment Total 22 05/25/2025 10:01 AM Darius Woodruff documented in this encounter Medications at Time of Discharge empagliflozin (Jardiance) 10 MG Take 1 tablet by mouth daily. 30 tablet 3 01/22/2025 ferrous sulfate 324 (65 Fe) MG EC tablet TAKE 1 TABLET BY MOUTH EVERY MORNING WITH BREAKFAST. DO NOT CHEW,CRUSH, OR SPLIT 01/13/2025 HYDROcodone-acetamino phen ([place]) 10-325 MG tablet Take 1 tablet by mouth 4 times a day as needed. Momelotinib Dihydrochloride 200 MG tabletIndications:Mye loproliferative disorder (CMS/HCC) Take 200 mg by mouth daily. 30 tablet 1 04/02/2025 rosuvastatin (Crestor) 10 MG tablet Take 1 tablet by mouth nightly. 90 tablet 3 02/12/2025 amoxicillin-clavulana te (Augmentin) 875-125 MG tabletIndications:Odo ntogenic Infection Take 1 tablet by mouth every 12 hours for 7 doses. 7 tablet 05/28/2025 5 ciprofloxacin (Cipro) 500 MG tabletIndications:SBP (spontaneous bacterial peritonitis) Take 1 tablet by mouth daily for 10 days. 10 tablet 05/28/2025 5 bumetanide (Bumex) 1 MG tablet Take 1 tablet by mouth daily. 30 tablet 10/10/2024 5 gabapentin (Neurontin) 300 MG capsule Take 1 capsule by mouth 3 times a day. 90 capsule 05/28/2025 5 documented as of this encounter Miscellaneous Notes * Progress Notes - Tamiko Monroe - 05/28/2025 11:26 AM EST Case Management Adult Progress Note Noe Caraballo 75 y.o. male CSN: [id number] Admission: 05/20/2025 10:51 AM Primary Problem: SBP (spontaneous bacterial peritonitis) Anticipated Discharge Date: 05/28/25 Has Discharge Plans Changed? Yes see below Medicare Second Notice: Medicare Medicare Second Notice?: Yes Date Second Notice Completed: 05/25/25 Time Second Notice Completed: 1101 Medicare Second Notice Recieved By: patient Housing Circumstances: Low Income ( 101-300% Federal Poverty Guideline) Housing Circumstances Action Taken: Other na Medically Ready for Discharge: Ready Now Additional Comments Pt previously planned to discharge with daughter. Pt wanting to discharge home. Pts daughter not able to provide transportation due to car issues but is aware pt is discharging home and she stated she would follow up with him once he is home. Pt meets 300% FPG. SW requested to asissit with arranging Lyft ride. Instructions given to nurse to send pt to discharge lounge to have ride arranged. Discharge lounge notified. No other discharge needs identified. SW will remain available through discharge if any other needs arise. Tamiko Monroe TECHNOLOGY APPLICATIONS TEACHER, SAIL FINISHER HAND Social Work Case Management * Care Plan - Saadia Lazcano RN - 05/28/2025 10:17 AM EST Problem: Adult Inpatient Plan of Care Goal: Plan of Care Review Outcome: Ongoing, Progressing Flowsheets (Taken 05/28/2025 1014) Progress: improving Plan of Care Reviewed With: patient Goal: Patient-Specific Goal (Individualized) Outcome: Ongoing, Progressing Flowsheets (Taken 05/28/2025 0800) Patient/Family-Specific Goals (Include Timeframe): patient safe by the end of the shift Individualized Care Needs: Patient safe by the end of the shift Anxieties, Fears or Concerns: none Goal: Absence of Hospital-Acquired Illness or Injury Outcome: Ongoing, Progressing Intervention: Identify and Manage Fall Risk Flowsheets (Taken 05/28/2025 1014) Safety Promotion/Fall Prevention: activity supervised room organization consistent safety round/check completed fall prevention program maintained clutter-free environment maintained lighting adjusted nonskid shoes/slippers when out of bed Goal: Optimal Comfort and Wellbeing Outcome: Ongoing, Progressing Intervention: Provide Person-Centered Care Flowsheets (Taken 05/28/2025 1014) Trust Relationship/Rapport: care explained choices provided emotional support provided thoughts/feelings acknowledged questions encouraged questions answered Problem: Infection Goal: Absence of Infection Signs and Symptoms Outcome: Ongoing, Progressing Intervention: Prevent or Manage Infection Flowsheets (Taken 05/28/2025 1014) Infection Management: aseptic technique maintained Fever Reduction/Comfort Measures: lightweight bedding lightweight clothing Isolation Precautions: precautions maintained Problem: Pain Acute Goal: Optimal Pain Control and Function Outcome: Ongoing, Progressing Intervention: Develop Pain Management Plan Flowsheets (Taken 05/28/2025 1014) Pain Management Interventions: medication (see MAR) quiet environment facilitated Problem: Functional Deficit Goal: Improved Balance and Postural Control Outcome: Ongoing, Progressing Intervention: Optimize Balance and Safe Activity Flowsheets (Taken 05/28/2025 1014) Activity Management: activity adjusted per tolerance activity encouraged Adaptive Equipment Use: used with assistance Safety Promotion/Fall Prevention: activity supervised room organization consistent safety round/check completed fall prevention program maintained clutter-free environment maintained lighting adjusted nonskid shoes/slippers when out of bed Self-Care Promotion: independence encouraged meal set-up provided BADL personal objects within reach Problem: Self-Care Deficit Goal: Improved Ability to Complete Activities of Daily Living Outcome: Ongoing, Progressing Intervention: Promote Activity and Functional Jerome Flowsheets (Taken 05/28/2025 1014) Activity Assistance Provided: assistance, stand-by Adaptive Equipment Use: used with assistance Self-Care Promotion: independence encouraged meal set-up provided BADL personal objects within reach Problem: Fall Injury Risk Goal: Absence of Fall and Fall-Related Injury Outcome: Ongoing, Progressing Intervention: Identify and Manage Contributors Flowsheets (Taken 05/28/2025 1014) Medication Review/Management: medications reviewed Self-Care Promotion: independence encouraged meal set-up provided BADL personal objects within reach Problem: Skin Injury Risk Increased Goal: Skin Health and Integrity Outcome: Ongoing, Progressing Intervention: Optimize Skin Protection Flowsheets (Taken 05/28/2025 1014) Activity Management: activity adjusted per tolerance activity encouraged Pressure Reduction Techniques: frequent weight shift encouraged Pressure Reduction Devices: positioning supports utilized Skin Protection: incontinence pads utilized Head of Bed (HOB) Positioning: HOB elevated * Discharge Summary - Daniel Corbett MD - 05/28/2025 10:15 AM EST Hospitalization Admit Date/Time: 05/20/2025 10:51 AM Admitting Attending: Susanne Duke Discharge Date: 05/28/25 Discharge Attending Physician: Daniel Corbett MD PCP name and Address: Debbie Medina MD [address] [place] [address] [id number] / [place] [id number] Referring provider name and address: No referring provider defined for this encounter. Chief Concern, Brief History of Present Illness, and Hospital Course Draft Hospital Course Noe Caraballo is a 75 y.o. 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 Hospital Medicine consulted for admission as Lifepointdeclined Patient seen and examined at the bedside this afternoon, he reported ongoing abdominal pain lower generalized x 1 week, shooting pain constant. He denied fever chills nausea vomiting diarrhea or constipation, last BM yesterday. He notes worsening leg swelling over the last few days. He reports ongoing left sided tooth pain x 3 weeks which is severe, was due to get outpatient extraction with Dentistry . He reports at baseline lives alone, daughter is next of contact and he ambulated with walker at baseline, some weakness recently. In ED, labs with WCC 57.28 (48-67 prior), differential pending, Cr near baseline at 2.18, alk phos similar to baseline 309 and mildly elevated bilirubin 1.6. Blood cultures were obtained on admission, he was given ceftriaxone 2g IV. 05/20/2025: Initial workup showed leukocytosis (WBC 57.28), mild anemia, thrombocytosis, elevated BUN/Cr, and cholestatic LFTs; paracentesis confirmed SBP (PMN 321, no organisms); started IV ceftriaxone 2g daily; blood cultures pending; IV bumetanide 1 mg initiated for volume overload; panorex ordered for dental pain; liver US and chest X-ray planned; VTE prophylaxis started; full code status documented. 05/21/2025: Labs showed persistent leukocytosis (WBC 54.86), stable renal function, and mild hepatic dysfunction; panorex revealed carious erosion of left mandibular molar, no abscess; liver US showed mild chronic parenchymal changes, cholelithiasis, and ascites; chest X-ray suggested mild vascularcongestion; continued ceftriaxone and started ciprofloxacin prophylaxis for recurrent SBP; IV bumetanide continued for diuresis; hematology consult found no TLS and cleared for dental extraction without antimicrobial prophylaxis; recommended liver Doppler for portal vein thrombosis; PT/OT consults initiated for functional decline; discharge anticipated in 2-4 days pending dental procedure and stability. 05/22/2025: US Doppler confirmed patent portal vein; transitioned from ceftriaxone to [id number] mg BID for SBP treatment and prophylaxis; IV bumetanide continued, with improved diuresis (UOP 1950 mL, weight down from 205 to 186 lbs, edema improved); dental consult confirmed gross decay of #19, extraction planned pending pre-procedure labs and coordination; PT/OT recommended home dischargewith 24-hour assistance, daughter willing to provide care; no new infection or decompensation; discharge readiness contingent on dental extraction and volume status stabilization. 05/23/2025: Edema further improved; transitioned to oral bumetanide 1 mg (home regimen); electrolytes to be rechecked post-diuresis; continued ciprofloxacin for SBP prophylaxis; dental extraction scheduling in progress; medically ready for discharge in 1-2 days, with home assistance arranged; family prefers home discharge, patient declines rehab placement. 05/24/2025: Stable exam and vitals; continued ciprofloxacin for SBP treatment and prophylaxis; oralbumetanide maintained; dental extraction scheduled for 05/25 at 1400, perioperative clearance obtained, DVT prophylaxis held; discharge planning finalized for home with 24-hour assistance, daughter to provide temporary care; outpatient GI and hematology follow-up arranged; no additional paracentesis planned prior to discharge. 05/25/2025: Patient is lying in bed no issues he is cleaning himself up with wipes. Participating discharge tomorrow. Significant leukocytosis worsened, WBC increased from 54.86 to 136.10 10*3/uL, with marked neutrophilia (neutrophils absolute 121.13 10*3/uL, 89%) and lymphopenia (lymphocytes absolute 0.00 10*3/uL, 0%). Platelet count decreased from 158 to 100 10*3/uL. Potassium increased from 4.6 to 5.7 mmol/L. Sodium decreased from 136 to 133 mmol/L. Net negative fluid balance increased from -500mL to -1880mL, with urine output rising from 1700mL to 1880mL. We will need to follow up patient's white count tomorrow. Plan to have extraction of tooth. Continue with ciprofloxacin for SBP treatment. 05/26/2025: Overnight patient was having bleeding tooth. Dental resident team came by to see him. WBC remains markedly elevated (previously 136.10, now 139.78 x10^3/uL), with persistent neutrophilia (absolute neutrophils 121.13 to 118.81 x10^3/uL) and slight improvement in lymphopenia (absolute lymphocytes 0.00 to 1.40 x10^3/uL); platelets decreased further from 100 to 85 x10^3/uL. Total bilirubin increased from 1.2 to 1.8 mg/dL; alkaline phosphatase increased from 324 to 408 U/L; AST increasedfrom 52 to 65 U/L; albumin slightly decreased from 3.3 to 3.2 g/dL. BUN increased from 36 to 42 mg/dL and creatinine from 2.24 to 2.30 mg/dL; eGFR essentially unchanged (30.0 to 29.1 mL/min/1.73m2). Blood cultures finalized as no growth. Tranexamic acid oral rinse ordered for post- dental extractionbleeding prevention/management. Diet order updated to easy to chew, 2g sodium restriction, and 1800mL fluid restriction. Patient was found to have hyperkalemia potassium of 5.2. Hyperkalemia for call given with of sodium bicarbonate insulin dextrose and a 500 cc normal saline. This afternoon patient is altered speaking in short sentences but is not himself. We will monitor him closely. Started on Augmentin 875-125 mg by mouth twice daily for 5 days. We will continue to monitor the patient, notyet medically ready for discharge. 05/27/2025: No adverse events noted overnight. Platelet count decreased from 85 to 64 10*3/uL, indicating worsening thrombocytopenia. WBC improved from 139.78 to 117.62 10*3/uL, with absolute neutrophils also decreased from ~118-121 to 93.88 10*3/uL. Bilirubin decreased from 1.8 to 1.6 mg/dL, and AST improved from 65 to 51 U/L, suggesting mild improvement in hepatic injury. Alkaline phosphatase increased from 408 to 443 U/L, consistent with ongoing cholestasis. Potassium improved from 5.2 to 4.6 mmol/L following management for hyperkalemia. DVT prophylaxis with heparin is no longer on hold and has resumed. Augmentin dose increased from 500-125 mg BID to 875-125 mg every 12 hours. No issues at this time patient is lying bed wanting to go home unable to get a ride at this time. White count still elevated awaiting for it to downtrend. 05/28/2025: Patient is stable no adverse events noted overnight. WBC decreased from 117.62 to 97.99, and absolute neutrophil count decreased from 118.81 to 76.43, but both remain markedly elevated; platelets further decreased from 64 to 54. BUN increased from 42 to 48 and creatinine increased from 2.32 to 2.38, with eGFR slightly decreased from 28.8 to 27.9, indicating mild worsening of renal function. Total bilirubin increased from 1.6 to 1.8 and AST increased from 51 to 63, while alkaline phosphatase increased from 443 to 487. Weight increased from 87.6 kg to 90.6 kg. 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 Patient is stable for discharge we will ask case management to arrange transport. Review of Systems Noe Caraballo is a 75 y.o. male with a known medical history ofHFrEF (30-35% in 10/23), recurrent ascites requiring at least biweekly paracentesis, CKD, myelofibrosis s/p splenectomy presenting following paracentesis on 05/18 showing 321 PMNs admitted for SBP whose course has been complicated by fluid overload and dental extraction Carious erosion L mandibular first molar Perioperative clearance: 3 weeks of left lower tooth pain,has been cutting into his lip on the inside Evaluated outpatient previously with [facility] 04/26/25 Dentistry consulted, appreciate recs, going for extraction on 05/25 at 1400 Holding DVT PPX RCRI 3 points, 10 % risk of MACE METS >4 We will give Augmentin [id number] mg by mouth twice daily for 7 days. Hyperkalemia: Chronic HFrEF, Volume overload: TTE 10/23 LV dilation, LV aneurysm apical wall segment, EF 30-35% grade II moderate diastolic dysfunction, LV filling pressure elevated, inferolateral/anteroseptal/anterior/apical modoy hypokinetic. F/W Dr. Barber, last seen 02/05/25, NYHA class 3, ACC/AHA stage C. Did NOT tolerate GDMT in past. Off home diuretics for unclear reasons, such that presented with worsening swelling OA. However never requiring supplemental oxygen, no difficulty breathing, no concern for pulmonary edema so Continue PO diuresis with bumex 1 mg which is home regimen Defer repeat TTE given known inciting agent of non-compliance with diuretics Recurrent SBP, Recurrent ascites requiring monthly paracentesis: Para 05/18 PMN 321, GS moderate PMNs, no organisms seen. HX SBP, ?last episode 07/25 before and after which supposed to be on ciprofloxacin maintenance. Difficult medication compliance given limited assistance at home. Afebrile, HDS, reassuring abdominal exam. Do not expect will need para prior to DC based on monthly schedule Continue cipro 500 BID D4/5 for SBP TX Restart ciprofloxacin PPX OP to prevent recurrence GI FU OP to ascertain lack of primary liver pathology Inability to perform ADLs: Chart review multiple missed appointments over last 6 months, unfortunately with hospitalizations resulting from medication non-compliance PT/OT recommending home with 24-hour assistance Daughter willing to take patient home with her, however this seems like a temporary situation per patient Chronic CKD-cr baseline creatinine around 2.18 to 2.3. CAD-statin, need ASA Myelofibrosis s/p splenectomy-heme consulted, OK with 6 month FU FENGI: Regular diet DVT prophylaxis: Holding heparin 5000 units subcutaneous every 8 hours GI prophylaxis: None Code status: Full code Surgeries and Procedures Medication List .. amoxicillin-clavulanate 875-125 MG tablet Commonly known as: Augmentin Take 1 tablet by mouth every 12 hours for 7 doses. bumetanide 1 MG tablet Commonly known as: Bumex Take 1 tablet by mouth daily. ciprofloxacin 500 MG tablet Commonly known as: Cipro Take 1 tablet by mouth daily for 10 days. empagliflozin 10 MG Commonly known as: Jardiance Take 1 tablet by mouth daily. ferrous sulfate 324 (65 Fe) MG EC tablet TAKE 1 TABLET BY MOUTH EVERY MORNING WITH BREAKFAST. DO NOT CHEW,CRUSH, OR SPLIT gabapentin 300 MG capsule Commonly known as: Neurontin Take 1 capsule by mouth 3 times a day. HYDROcodone-acetaminophen 10-325 MG tablet Commonly known as: [place] Take 1 tablet by mouth 4 times a day as needed. Momelotinib Dihydrochloride 200 MG tablet Take 200 mg by mouth daily. rosuvastatin 10 MG tablet Commonly known as: Crestor Take 1 tablet by mouth nightly. Where to Get Your Medications These medications were sent to [facility] - [place], [place] - [address] [facility] [id number] amoxicillin-clavulanate 875-125 MG tablet ciprofloxacin 500 MG tablet gabapentin 300 MG capsule Discharge Diagnosis Medical Problems Active and Resolved Hospital Problems Hospital Gastro-esophageal reflux disease without esophagitis Paroxysmal atrial fibrillation (CMS/HCC) Overview Addendum 04/05/2024 7:20 PM by Kaitlin Abel APRN Acute onset A.fib w/ RVR post op Controlled with amio drip. Converted. Transitioned to metoprolol 12.5 mb BID started 03/24; titrate as needed for rate control. (Controlled). Lumbosacral radiculopathy Generalized weakness ACC/AHA stage C chronic systolic heart failure Coronary artery disease involving [place] coronary artery of [place] heart without angina pectoris Mixed dyslipidemia Chronic kidney disease, stage 4 (severe) (CMS/HCC) Nonrheumatic mitral (valve) insufficiency * (Principal) SBP (spontaneous bacterial peritonitis) Myeloproliferative disorder (CMS/HCC) Overview Addendum 10/06/2024 1:37 AM by Rocio Luu APRN Known history. 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 - Restarted Momelotinib on 03/25 (taking home supply); duration of response may take weeks. CBC w/ diff. Daily. Post Discharge Instructions Outpatient Follow-Up Future Appointments Date Time Provider Department Center 06/09/2025 9:00 AM MIAN [facility]lam[facility] 06/09/2025 9:30 AM Vaishnavi Almaraz MD [facility] Test Results Pending At Discharge Pertinent Physical Exam At Time of Discharge Physical Exam Vitals reviewed. Exam conducted with a labor relations teacher present. Constitutional: General: He is not in acute distress. Appearance: Normal appearance. He is obese. He is not ill-appearing. HENT: Head: Normocephalic and atraumatic. Right Ear: External ear normal. Left Ear: External ear normal. Eyes: General: No scleral icterus. Extraocular Movements: Extraocular movements intact. Conjunctiva/sclera: Conjunctivae normal. Pupils: Pupils are equal, round, and reactive to light. Cardiovascular: Rate and Rhythm: Normal rate. Pulses: Normal pulses. Heart sounds: Normal heart sounds. No murmur heard. No friction rub. No gallop. Pulmonary: Effort: Pulmonary effort is normal. No respiratory distress. Abdominal: General: Abdomen is flat. There is no distension. Palpations: Abdomen is soft. Tenderness: There is no abdominal tenderness. Musculoskeletal: General: Normal range of motion. Right lower leg: No edema. Left lower leg: No edema. Skin: General: Skin is warm. Capillary Refill: Capillary refill takes less than 2 seconds. Coloration: Skin is not jaundiced or pale. Findings: Bruising and lesion present. Neurological: General: No focal deficit present. Mental Status: He is alert and oriented to person, place, and time. Mental status is at baseline. Discharge Disposition/Condition Disposition: Home Condition: Stable (s/sx potential problems absent or manageable) I spent >30 minutes of patient care and instruction time in preparation for this discharge. * Care Plan - Akanksha Molina RN - 05/27/2025 10:13 PM EST Problem: Adult Inpatient Plan of Care Goal: Plan of Care Review Outcome: Ongoing, Progressing Flowsheets (Taken 05/27/20252204) Progress: improving Outcome Evaluation: pt agrees with POC Plan of Care Reviewed With: patient Goal: Patient-Specific Goal (Individualized) Outcome: Ongoing, Progressing Flowsheets (Taken 05/27/20252013) Patient/Family-Specific Goals (Include Timeframe): pt will have controlled pain during this shift Individualized Care Needs: pain control Anxieties, Fears or Concerns: wants to go home Goal: Absence of Hospital-Acquired Illness or Injury Outcome: Ongoing, Progressing Intervention: Identify and Manage Fall Risk Flowsheets (Taken 05/27/20252204) Safety Promotion/Fall Prevention: activity supervised Intervention: Prevent Skin Injury Flowsheets (Taken 05/27/20252204) Body Position: weight shifting education provided Skin Protection: incontinence pads utilized Intervention: Prevent and Manage VTE (Venous Thromboembolism) Risk Flowsheets (Taken 05/27/20252013) VTE Prevention/Management: medication Intervention: Prevent Infection Flowsheets (Taken 05/27/20252204) Infection Prevention: equipment surfaces disinfected hand hygiene promoted single patient room provided environmental surveillance performed rest/sleep promoted Goal: Optimal Comfort and Wellbeing Outcome: Ongoing, Progressing Intervention: Monitor Pain and Promote Comfort Flowsheets (Taken 05/27/20252039) Pain Management Interventions: medication (see MAR) Intervention: Provide Person-Centered Care Flowsheets (Taken 05/27/20252204) Trust Relationship/Rapport: care explained questions encouraged choices provided reassurance provided emotional support provided empathic listening provided questions answered thoughts/feelings acknowledged Problem: Infection Goal: Absence of Infection Signs and Symptoms Outcome: Ongoing, Progressing Intervention: Prevent or Manage Infection Flowsheets (Taken 05/27/20252204) Infection Management: aseptic technique maintained Fever Reduction/Comfort Measures: lightweight bedding lightweight clothing Isolation Precautions: precautions maintained Problem: Pain Acute Goal: Optimal Pain Control and Function Outcome: Ongoing, Progressing Intervention: Optimize Psychosocial Wellbeing Flowsheets (Taken 05/27/20252204) Supportive Measures: active listening utilized relaxation techniques promoted self-care encouraged verbalization of feelings encouraged Diversional Activities: television Spiritual Activities Assistance: affirmation provided Intervention: Develop Pain Management Plan Flowsheets (Taken 05/27/20252039) Pain Management Interventions: medication (see MAR) Intervention: Prevent or Manage Pain Flowsheets (Taken 05/27/20252204) Sensory Stimulation Regulation: care clustered lighting decreased Bowel Elimination Promotion: adequate fluid intake promoted ambulation promoted commode/bedpan at bedside Sleep/Rest Enhancement: awakenings minimized regular sleep/rest pattern promoted natural light exposure provided Medication Review/Management: medications reviewed Problem: Functional Deficit Goal: Improved Balance and Postural Control Outcome: Ongoing, Progressing Intervention: Optimize Balance and Safe Activity Flowsheets (Taken 05/27/20252204) Activity Management: activity adjusted per tolerance Safety Promotion/Fall Prevention: activity supervised Self-Care Promotion: independence encouraged BADL personal objects within reach Problem: Self-Care Deficit Goal: Improved Ability to Complete Activities of Daily Living Outcome: Ongoing, Progressing Intervention: Promote Activity and Functional [place] Flowsheets (Taken 05/27/20252204) Activity Assistance Provided: assistance, stand-by Self-Care Promotion: independence encouraged BADL personal objects within reach Problem: Fall Injury Risk Goal: Absence of Fall and Fall-Related Injury Outcome: Ongoing, Progressing Intervention: Identify and Manage Contributors Flowsheets (Taken 05/27/20252204) Medication Review/Management: medications reviewed Self-Care Promotion: independence encouraged BADL personal objects within reach Intervention: Promote Injury-Free Environment Flowsheets (Taken 05/27/20252204) Safety Promotion/Fall Prevention: activity supervised Problem: Skin Injury Risk Increased Goal: Skin Health and Integrity Outcome: Ongoing, Progressing Intervention: Optimize Skin Protection Flowsheets (Taken 05/27/20252204) Activity Management: activity adjusted per tolerance Pressure Reduction Techniques: frequent weight shift encouraged heels elevated off bed Pressure Reduction Devices: pressure-redistributing mattress utilized Skin Protection: incontinence pads utilized Head of Bed (HOB) Positioning: HOB elevated Intervention: Promote and Optimize Oral Intake Flowsheets (Taken 05/27/20252204) Oral Nutrition Promotion: physical activity promoted Nutrition Interventions: food preferences provided * Care Plan - Machelle Molina RN - 05/27/2025 10:15 AM EST Problem: Adult Inpatient Plan of Care Goal: Plan of Care Review Outcome: Ongoing, Progressing Flowsheets (Taken 05/26/20252201 by Desiree De Oliveira, DEANNA) Progress: improving Outcome Evaluation: pt agrees with poc Plan of Care Reviewed With: patient Goal: Patient-Specific Goal (Individualized) Outcome: Ongoing, Progressing Goal: Absence of Hospital-Acquired Illness or Injury Outcome: Ongoing, Progressing Goal: Optimal Comfort and Wellbeing Outcome: Ongoing, Progressing Problem: Infection Goal: Absence of Infection Signs and Symptoms Outcome: Ongoing, Progressing Problem: Pain Acute Goal: Optimal Pain Control and Function Outcome: Ongoing, Progressing Problem: Functional Deficit Goal: Improved Balance and Postural Control Outcome: Ongoing, Progressing Problem: Self-Care Deficit Goal: Improved Ability to Complete Activities of Daily Living Outcome: Ongoing, Progressing Problem: Fall Injury Risk Goal: Absence of Fall and Fall-Related Injury Outcome: Ongoing, Progressing Problem: Skin Injury Risk Increased Goal: Skin Health and Integrity Outcome: Ongoing, Progressing * Progress Notes - Daniel Corbett MD - 05/27/2025 6:46 AM EST Subjective Noe Caraballo is a 75 y.o. 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 Hospital Medicine consulted for admission as [facility] Patient seen and examined at the bedside this afternoon, he reported ongoing abdominal pain lower generalized x 1 week, shooting pain constant. He denied fever chills nausea vomiting diarrhea or constipation, last BM yesterday. He notes worsening leg swelling over the last few days. He reports ongoing left sided tooth pain x 3 weeks which is severe, was due to get outpatient extraction with Dentistry . He reports at baseline lives alone, daughter is next of contact and he ambulated with walker at baseline, some weakness recently. In ED, labs with [facility]CC 57.28 (48-67 prior), differential pending, Cr near baseline at 2.18, alk phos similar to baseline 309 and mildly elevated bilirubin 1.6. Blood cultures were obtained on admission, he was given ceftriaxone 2g IV. 05/20/2025: Initial workup showed leukocytosis (WBC 57.28), mild anemia, thrombocytosis, elevated BUN/Cr, and cholestatic LFTs; paracentesis confirmed SBP (PMN 321, no organisms); started IV ceftriaxone 2g daily; blood cultures pending; IV bumetanide 1 mg initiated for volume overload; panorex ordered for dental pain; liver US and chest X-ray planned; VTE prophylaxis started; full code status documented. 05/21/2025: Labs showed persistent leukocytosis (WBC 54.86), stable renal function, and mild hepatic dysfunction; panorex revealed carious erosion of left mandibular molar, no abscess; liver US showed mild chronic parenchymal changes, cholelithiasis, and ascites; chest X-ray suggested mild vascularcongestion; continued ceftriaxone and started ciprofloxacin prophylaxis for recurrent SBP; IV bumetanide continued for diuresis; hematology consult found no TLS and cleared for dental extraction without antimicrobial prophylaxis; recommended liver Doppler for portal vein thrombosis; PT/OT consults initiated for functional decline; discharge anticipated in 2-4 days pending dental procedure and stability. 05/22/2025: US Doppler confirmed patent portal vein; transitioned from ceftriaxone to [id number] mg BID for SBP treatment and prophylaxis; IV bumetanide continued, with improved diuresis (UOP 1950 mL, weight down from 205 to 186 lbs, edema improved); dental consult confirmed gross decay of #19, extraction planned pending pre-procedure labs and coordination; PT/OT recommended home dischargewith 24-hour assistance, daughter willing to provide care; no new infection or decompensation; discharge readiness contingent on dental extraction and volume status stabilization. 05/23/2025: Edema further improved; transitioned to oral bumetanide 1 mg (home regimen); electrolytes to be rechecked post-diuresis; continued ciprofloxacin for SBP prophylaxis; dental extraction scheduling in progress; medically ready for discharge in 1-2 days, with home assistance arranged; family prefers home discharge, patient declines rehab placement. 05/24/2025: Stable exam and vitals; continued ciprofloxacin for SBP treatment and prophylaxis; oralbumetanide maintained; dental extraction scheduled for 05/25 at 1400, perioperative clearance obtained, DVT prophylaxis held; discharge planning finalized for home with 24-hour assistance, daughter to provide temporary care; outpatient GI and hematology follow-up arranged; no additional paracentesis planned prior to discharge. 05/25/2025: Patient is lying in bed no issues he is cleaning himself up with wipes. Participating discharge tomorrow. Significant leukocytosis worsened, WBC increased from 54.86 to 136.10 10*3/uL, with marked neutrophilia (neutrophils absolute 121.13 10*3/uL, 89%) and lymphopenia (lymphocytes absolute 0.00 10*3/uL, 0%). Platelet count decreased from 158 to 100 10*3/uL. Potassium increased from 4.6 to 5.7 mmol/L. Sodium decreased from 136 to 133 mmol/L. Net negative fluid balance increased from -500mL to -1880mL, with urine output rising from 1700mL to 1880mL. We will need to follow up patient's white count tomorrow. Plan to have extraction of tooth. Continue with ciprofloxacin for SBP treatment. 05/26/2025: Overnight patient was having bleeding tooth. Dental resident team came by to see him. WBC remains markedly elevated (previously 136.10, now 139.78 x10^3/uL), with persistent neutrophilia (absolute neutrophils 121.13 to 118.81 x10^3/uL) and slight improvement in lymphopenia (absolute lymphocytes 0.00 to 1.40 x10^3/uL); platelets decreased further from 100 to 85 x10^3/uL. Total bilirubin increased from 1.2 to 1.8 mg/dL; alkaline phosphatase increased from 324 to 408 U/L; AST increasedfrom 52 to 65 U/L; albumin slightly decreased from 3.3 to 3.2 g/dL. BUN increased from 36 to 42 mg/dL and creatinine from 2.24 to 2.30 mg/dL; eGFR essentially unchanged (30.0 to 29.1 mL/min/1.73m2). Blood cultures finalized as no growth. Tranexamic acid oral rinse ordered for post- dental extractionbleeding prevention/management. Diet order updated to easy to chew, 2g sodium restriction, and 1800mL fluid restriction. Patient was found to have hyperkalemia potassium of 5.2. Hyperkalemia for call given with of sodium bicarbonate insulin dextrose and a 500 cc normal saline. This afternoon patient is altered speaking in short sentences but is not himself. We will monitor him closely. Started on Augmentin 875-125 mg by mouth twice daily for 5 days. We will continue to monitor the patient, notyet medically ready for discharge. 05/27/2025: No adverse events noted overnight. Platelet count decreased from 85 to 64 10*3/uL, indicating worsening thrombocytopenia. WBC improved from 139.78 to 117.62 10*3/uL, with absolute neutrophils also decreased from ~118-121 to 93.88 10*3/uL. Bilirubin decreased from 1.8 to 1.6 mg/dL, and AST improved from 65 to 51 U/L, suggesting mild improvement in hepatic injury. Alkaline phosphatase increased from 408 to 443 U/L, consistent with ongoing cholestasis. Potassium improved from 5.2 to 4.6 mmol/L following management for hyperkalemia. DVT prophylaxis with heparin is no longer on hold and has resumed. Augmentin dose increased from 500-125 mg BID to 875-125 mg every 12 hours. No issues at this time patient is lying bed wanting to go home unable to get a ride at this time. White count still elevated awaiting for it to downtrend. Review of Systems All other systems reviewed and are negative. Objective Vitals Temp: [36.3 ??C (97.3 ??F)-36.5 ??C (97.7 ??F)] 36.4 ??C (97.5 ??F) Heart Rate: [83-91] 89 Resp: [18-20] 20 BP: (96-107)/(58-74) 107/74 Physical Exam Vitals reviewed. Constitutional: Appearance: He is obese. HENT: Head: Normocephalic and atraumatic. Nose: Nose normal. Mouth/Throat: Mouth: Mucous membranes are moist. Eyes: General: No scleral icterus. Cardiovascular: Rate and Rhythm: Normal rate. Pulses: Normal pulses. Heart sounds: No murmur heard. No friction rub. No gallop. Pulmonary: Effort: Pulmonary effort is normal. Abdominal: General: Abdomen is flat. There is no distension. Palpations: There is no mass. Tenderness: There is no abdominal tenderness. Skin: General: Skin is warm. Capillary Refill: Capillary refill takes less than 2 seconds. Neurological: General: No focal deficit present. Mental Status: He is alert and oriented to person, place, and time. Mental status is at baseline. Assessment & Plan SBP (spontaneous bacterial peritonitis) Paroxysmal atrial fibrillation (CMS/HCC) Nonrheumatic mitral (valve) insufficiency Myeloproliferative disorder (CMS/HCC) Mixed dyslipidemia Lumbosacral radiculopathy Generalized weakness Gastro-esophageal reflux disease without esophagitis Coronary artery disease involving [place] coronary artery of [place] heart without angina pectoris Chronic kidney disease, stage 4 (severe) (CMS/HCC) ACC/AHA stage C chronic systolic heart failure Noe Caraballo is a 75 y.o. male with a known medical history ofHFrEF (30-35% in 10/23), recurrent ascites requiring at least biweekly paracentesis, CKD, myelofibrosis s/p splenectomy presenting following paracentesis on 05/18 showing 321 PMNs admitted for SBP whose course has been complicated by fluid overload and dental extraction Carious erosion L mandibular first molar Perioperative clearance: 3 weeks of left lower tooth pain,has been cutting into his lip on the inside Evaluated outpatient previously with [facility] 04/26/25 Dentistry consulted, appreciate recs, going for extraction on 05/25 at 1400 Holding DVT PPX RCRI 3 points, 10 % risk of MACE METS >4 Hyperkalemia: Likely due to volume overload. However concern for tumor lysis syndrome. We will alsofollow up uric acid LDH and other sign Continue with sodium bicarbonate, normal saline 500 cc fluid bolus, 1 time dose of [place] which was not given Monitor BUN and creatinine daily Follow up potassium levels tomorrow morning Follow up uric acid LDH tomorrow morning. Chronic HFrEF, Volume overload: TTE 10/23 LV dilation, LV aneurysm apical wall segment, EF 30-35% grade II moderate diastolic dysfunction, LV filling pressure elevated, inferolateral/anteroseptal/anterior/apical moody hypokinetic. F/W Dr. Barber, last seen 02/05/25, NYHA class 3, ACC/AHA stage C. Did NOT tolerate GDMT in past. Off home diuretics for unclear reasons, such that presented with worsening swelling OA. However never requiring supplemental oxygen, no difficulty breathing, no concern for pulmonary edema so Continue PO diuresis with bumex 1 mg which is home regimen Defer repeat TTE given known inciting agent of non-compliance with diuretics Recurrent SBP, Recurrent ascites requiring monthly paracentesis: Para 05/18 PMN 321, GS moderate PMNs, no organisms seen. HX SBP, ?last episode 07/25 before and after which supposed to be on ciprofloxacin maintenance. Difficult medication compliance given limited assistance at home. Afebrile, HDS, reassuring abdominal exam. Do not expect will need para prior to DC based on monthly schedule Continue cipro 500 BID D4/5 for SBP TX Restart ciprofloxacin PPX OP to prevent recurrence GI FU OP to ascertain lack of primary liver pathology Inability to perform ADLs: Chart review multiple missed appointments over last 6 months, unfortunately with hospitalizations resulting from medication non-compliance PT/OT recommending home with 24-hour assistance Daughter willing to take patient home with her, however this seems like a temporary situation per patient Chronic CKD-cr baseline creatinine around 2.18 to 2.3. CAD-statin, need ASA Myelofibrosis s/p splenectomy-heme consulted, OK with 6 month FU FENGI: Regular diet DVT prophylaxis: Holding heparin 5000 units subcutaneous every 8 hours GI prophylaxis: None Code status: Full code Disposition: Patient is medically ready for discharge we will need a ride tomorrow. Daniel Corbett MD Internal Medicine Hospitalist [employer] Department of Internal Medicine Division of Hospital Medicine [address] [address] Preferred method is secure chat or cell phone at [phone] Medically Ready for Discharge:Ready Now * Consults - Essence Stoll RD - 05/26/2025 2:12 PM EST Adult Nutrition Evaluation Note Noe Caraballo 75 y.o. male CSN: [id number] Room/Bed 210/210I Nutrition evaluation type: assessment Reason for evaluation: [facility] Hospital course: 75 yo male had recent outpatient paracentesis performed in IR on 05/18, preliminary results with PMN 321 and recommended to come to ED. Hospital Medicine consulted for admission Past medical/ surgical history: CKD, ascites gets outpatient paracentesis Past Medical History[1] Surgical History[2] Social history: Social History[3] Additional comments: Vitals and Basic Assessment: BP: 105/65 Temp: 36.4 ??C (97.5 ??F) Oxygen Therapy: None (Room air) [place] Coma Scale Score: 15 Huber Scale Score: 18 [place] Pressure Risk Score: 40 Most Recent BM Date: 05/26/25 GI Symptoms: Bloating, Distention Edema: Right lower extremity, Left lower extremity Allergies: NKA Medications: Current Scheduled Medications[4] Current PRN Medications[5] Meds were reviewed: Yes Labs: Labs in last 18 hours CBC WBC 139.78 (HH) Hb 14.9 Plt 85 (L) Hct 49.0 ANC 118.81 (H) INR ??, PTT ??, Anti-Xa ?? BMP Na 135 (L) Cl 96 (L) BUN 41 (H) Glu 110 (H) K 4.6 Co2 22 Cr 2.22 (H) Ca 8.2 (L) iCa ?? Mg 2.1, Phos 4.1 Lactate ?? LFT AST 65 (H) AlkPhos 408 (H) T Prot 6.5 ALK 22 Bili 1.8 (H) Alb ?? D.Bili ?? Anthropometrics: Height: 170.2 cm (5' 7 ) Weight: 86.5 kg (190 lb 11.2 oz) BMI (Calculated): 29.86 [place] Body Weight (kg): 67.2 Percent [place] Body Weight: 129 Adjusted Body Weight (kg): 72 Wt Readings from Last 10 Encounters: 05/26/25 86.5 kg (190 lb 11.2 oz) 05/18/25 89.2 kg (196 lb 10.4 oz) 04/26/25 82.7 kg (182 lb 5.1 oz) 03/25/25 86.6 kg (190 lb 14.7 oz) 03/25/25 83.6 kg (184 lb 4.9 oz) 03/15/25 78.1 kg (172 lb 2.9 oz) 02/05/25 81 kg (178 lb 9.2 oz) 01/21/25 80.9 kg (178 lb 5.6 oz) 01/07/25 86.4 kg (190 lb 7.6 oz) 11/09/24 69.9 kg (154 lb) ~3% change noted x 8 days, possibly r/t fluid/diuresis, will monitor. Estimated Needs: Metabolic Cart Study Results: Current Nutrition Intake: Diet Order: Adult Diet Diet Texture: Easy to Chew 7 Adult Sodium Restriction: 2,000 mg Na Adult Fluid Restriction / 24 hr: 1800 ml fluid Percent Meals Eaten (%): avg 75% x 5 meals Diet Experience and Nutrition History: Diet Education Provided: Will monitor Pertinent home medications: Bumex, Jardiance, FeSO4, [place] Diego, Momelotinib dihydrochloride, Crestor Jain needs: Nutrition Focused Physical Exam: Unable to Complete Exam: Unable to access exam locations Physical exam performed on (date): Pending Assessment of Malnutrition: Nutrition Problem: Decreased nutrient needs Na related to fluid retention as evidenced by edema, Na restricted diet. 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 Acute kidney failure, unspecified (CMS/HCC) 03/23/2024 Anemia Ascites 03/28/2024 Atrial fibrillation ([facility]) 03/22/2024 CAD (coronary artery disease) Chronic back [...] Alcohol use: Never Drug use: Never [4] amoxicillin-clavulanate, 875 mg, Oral, q12h bumetanide, 1 mg, Oral, Daily [COMPLETED] ciprofloxacin, 500 mg, Oral, BID FOLLOWED BY ciprofloxacin, 500 mg, Oral, Daily ferrous sulfate, 324 mg, Oral, Every other day gabapentin, 300 mg, Oral, TID heparin (porcine), 5,000 Units, Subcutaneous, q8h YANIQUE polyethylene glycol, 17 g, Oral, BID rosuvastatin, 10 mg, Oral, Nightly senna-docusate, 2 tablet, Oral, BID [COMPLETED] Insert peripheral IV, , , Once AND [COMPLETED] Saline lock IV, , , Once AND sodium chloride, 10 mL, Intravenous, q12h AND sodium chloride, 10 mL, Intravenous, PRN [5] PRN medications: acetaminophen, diphenhydrAMINE-zinc acetate, HYDROcodone- acetaminophen, ondansetron ODT OR ondansetron OR ondansetron, [COMPLETED] Insert peripheral IV AND [COMPLETED] Saline lock IV AND sodium chloride AND sodium chloride, tranexamic acid * Progress Notes - Jacki Murphy RN - 05/26/2025 12:34 PM EST Case Management Adult Progress Note Noe Caraballo 75 y.o. male CSN: [id number] Admission: 05/20/2025 10:51 AM Primary Problem: SBP (spontaneous bacterial peritonitis) Anticipated Discharge Date: TBD Has Discharge Plans Changed? No- dtr will take patient home for a few days after hospitalization. Medically Ready for Discharge: Anticipated Tomorrow Additional Comments Plan of Care and Discharge Plan reviewed with care team this am. Patient was admitted on 05/20 withSBP. IV abx completed. Had tooth extraction on 05/25. Per MD, patient more sleepy and mentation haschanged. Wants to watch patient and labs. Per MD, not medically ready for discharge. Dtr also concerned about recent decline and plans to take patient home with her and keep him through the holidays. VM left for daughter to update on discharge plan. Also spoke with patient's friend Anai (dtrs mother) and updated. CM will continue to follow up. Jacki Murphy RN * Hospital Course - Daniel Corbett MD - 05/26/2025 11:26 AM EST Noe Caraballo is a 75 y.o. 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 Hospital Medicine consulted for admission as Lifepointdeclined Patient seen and examined at the bedside this afternoon, he reported ongoing abdominal pain lower generalized x 1 week, shooting pain constant. He denied fever chills nausea vomiting diarrhea or constipation, last BM yesterday. He notes worsening leg swelling over the last few days. He reports ongoing left sided tooth pain x 3 weeks which is severe, was due to get outpatient extraction with Dentistry . He reports at baseline lives alone, daughter is next of contact and he ambulated with walker at baseline, some weakness recently. In ED, labs with WCC 57.28 (48-67 prior), differential pending, Cr near baseline at 2.18, alk phos similar to baseline 309 and mildly elevated bilirubin 1.6. Blood cultures were obtained on admission, he was given ceftriaxone 2g IV. 05/20/2025: Initial workup showed leukocytosis (WBC 57.28), mild anemia, thrombocytosis, elevated BUN/Cr, and cholestatic LFTs; paracentesis confirmed SBP (PMN 321, no organisms); started IV ceftriaxone 2g daily; blood cultures pending; IV bumetanide 1 mg initiated for volume overload; panorex ordered for dental pain; liver US and chest X-ray planned; VTE prophylaxis started; full code status documented. 05/21/2025: Labs showed persistent leukocytosis (WBC 54.86), stable renal function, and mild hepatic dysfunction; panorex revealed carious erosion of left mandibular molar, no abscess; liver US showed mild chronic parenchymal changes, cholelithiasis, and ascites; chest X-ray suggested mild vascularcongestion; continued ceftriaxone and started ciprofloxacin prophylaxis for recurrent SBP; IV bumetanide continued for diuresis; hematology consult found no TLS and cleared for dental extraction without antimicrobial prophylaxis; recommended liver Doppler for portal vein thrombosis; PT/OT consults initiated for functional decline; discharge anticipated in 2-4 days pending dental procedure and stability. 05/22/2025: US Doppler confirmed patent portal vein; transitioned from ceftriaxone to [id number] mg BID for SBP treatment and prophylaxis; IV bumetanide continued, with improved diuresis (UOP 1950 mL, weight down from 205 to 186 lbs, edema improved); dental consult confirmed gross decay of #19, extraction planned pending pre-procedure labs and coordination; PT/OT recommended home dischargewith 24-hour assistance, daughter willing to provide care; no new infection or decompensation; discharge readiness contingent on dental extraction and volume status stabilization. 05/23/2025: Edema further improved; transitioned to oral bumetanide 1 mg (home regimen); electrolytes to be rechecked post-diuresis; continued ciprofloxacin for SBP prophylaxis; dental extraction scheduling in progress; medically ready for discharge in 1-2 days, with home assistance arranged; family prefers home discharge, patient declines rehab placement. 05/24/2025: Stable exam and vitals; continued ciprofloxacin for SBP treatment and prophylaxis; oralbumetanide maintained; dental extraction scheduled for 05/25 at 1400, perioperative clearance obtained, DVT prophylaxis held; discharge planning finalized for home with 24-hour assistance, daughter to provide temporary care; outpatient GI and hematology follow-up arranged; no additional paracentesis planned prior to discharge. 05/25/2025: Patient is lying in bed no issues he is cleaning himself up with wipes. Participating discharge tomorrow. Significant leukocytosis worsened, WBC increased from 54.86 to 136.10 10*3/uL, with marked neutrophilia (neutrophils absolute 121.13 10*3/uL, 89%) and lymphopenia (lymphocytes absolute 0.00 10*3/uL, 0%). Platelet count decreased from 158 to 100 10*3/uL. Potassium increased from 4.6 to 5.7 mmol/L. Sodium decreased from 136 to 133 mmol/L. Net negative fluid balance increased from -500mL to -1880mL, with urine output rising from 1700mL to 1880mL. We will need to follow up patient's white count tomorrow. Plan to have extraction of tooth. Continue with ciprofloxacin for SBP treatment. 05/26/2025: Overnight patient was having bleeding tooth. Dental resident team came by to see him. WBC remains markedly elevated (previously 136.10, now 139.78 x10^3/uL), with persistent neutrophilia (absolute neutrophils 121.13 to 118.81 x10^3/uL) and slight improvement in lymphopenia (absolute lymphocytes 0.00 to 1.40 x10^3/uL); platelets decreased further from 100 to 85 x10^3/uL. Total bilirubin increased from 1.2 to 1.8 mg/dL; alkaline phosphatase increased from 324 to 408 U/L; AST increasedfrom 52 to 65 U/L; albumin slightly decreased from 3.3 to 3.2 g/dL. BUN increased from 36 to 42 mg/dL and creatinine from 2.24 to 2.30 mg/dL; eGFR essentially unchanged (30.0 to 29.1 mL/min/1.73m2). Blood cultures finalized as no growth. Tranexamic acid oral rinse ordered for post- dental extractionbleeding prevention/management. Diet order updated to easy to chew, 2g sodium restriction, and 1800mL fluid restriction. Patient was found to have hyperkalemia potassium of 5.2. Hyperkalemia for call given with of sodium bicarbonate insulin dextrose and a 500 cc normal saline. This afternoon patient is altered speaking in short sentences but is not himself. We will monitor him closely. Started on Augmentin 875-125 mg by mouth twice daily for 5 days. We will continue to monitor the patient, notyet medically ready for discharge. 05/27/2025: No adverse events noted overnight. Platelet count decreased from 85 to 64 10*3/uL, indicating worsening thrombocytopenia. WBC improved from 139.78 to 117.62 10*3/uL, with absolute neutrophils also decreased from ~118-121 to 93.88 10*3/uL. Bilirubin decreased from 1.8 to 1.6 mg/dL, and AST improved from 65 to 51 U/L, suggesting mild improvement in hepatic injury. Alkaline phosphatase increased from 408 to 443 U/L, consistent with ongoing cholestasis. Potassium improved from 5.2 to 4.6 mmol/L following management for hyperkalemia. DVT prophylaxis with heparin is no longer on hold and has resumed. Augmentin dose increased from 500-125 mg BID to 875-125 mg every 12 hours. No issues at this time patient is lying bed wanting to go home unable to get a ride at this time. White count still elevated awaiting for it to downtrend. 05/28/2025: Patient is stable no adverse events noted overnight. WBC decreased from 117.62 to 97.99, and absolute neutrophil count decreased from 118.81 to 76.43, but both remain markedly elevated; platelets further decreased from 64 to 54. BUN increased from 42 to 48 and creatinine increased from 2.32 to 2.38, with eGFR slightly decreased from 28.8 to 27.9, indicating mild worsening of renal function. Total bilirubin increased from 1.6 to 1.8 and AST increased from 51 to 63, while alkaline phosphatase increased from 443 to 487. Weight increased from 87.6 kg to 90.6 kg. 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 Patient is stable for discharge we will ask case management to arrange transport. Review of Systems Noe Caraballo is a 75 y.o. male with a known medical history ofHFrEF (30-35% in 10/23), recurrent ascites requiring at least biweekly paracentesis, CKD, myelofibrosis s/p splenectomy presenting following paracentesis on 05/18 showing 321 PMNs admitted for SBP whose course has been complicated by fluid overload and dental extraction Carious erosion L mandibular first molar Perioperative clearance: 3 weeks of left lower tooth pain,has been cutting into his lip on the inside Evaluated outpatient previously with [facility] 04/26/25 Dentistry consulted, appreciate recs, going for extraction on 05/25 at 1400 Holding DVT PPX RCRI 3 points, 10 % risk of MACE METS >4 We will give Augmentin [id number] mg by mouth twice daily for 7 days. Hyperkalemia: Chronic HFrEF, Volume overload: TTE 10/23 LV dilation, LV aneurysm apical wall segment, EF 30-35% grade II moderate diastolic dysfunction, LV filling pressure elevated, inferolateral/anteroseptal/anterior/apical moody hypokinetic. F/W Dr. Barber, last seen 02/05/25, NYHA class 3, ACC/AHA stage C. Did NOT tolerate GDMT in past. Off home diuretics for unclear reasons, such that presented with worseningswelling OA. However never requiring supplemental oxygen, no difficulty breathing, no concern for pulmonary edema so Continue PO diuresis with bumex 1 mg which is home regimen Defer repeat TTE given known inciting agent of non-compliance with diuretics Recurrent SBP, Recurrent ascites requiring monthly paracentesis: Para 05/18 PMN 321, GS moderate PMNs, no organisms seen. HX SBP, ?last episode 07/25 before and after which supposed to be on ciprofloxacin maintenance. Difficult medication compliance given limited assistance at home. Afebrile, HDS, reassuring abdominal exam. Do not expect will need para prior to DC based on monthly schedule Continue cipro 500 BID D4/5 for SBP TX Restart ciprofloxacin PPX OP to prevent recurrence GI FU OP to ascertain lack of primary liver pathology Inability to perform ADLs: Chart review multiple missed appointments over last 6 months, unfortunately with hospitalizations resulting from medication non-compliance PT/OT recommending home with 24-hour assistance Daughter willing to take patient home with her, however this seems like a temporary situation per patient Chronic CKD-cr baseline creatinine around 2.18 to 2.3. CAD-statin, need ASA Myelofibrosis s/p splenectomy-heme consulted, OK with 6 month FU FENGI: Regular diet DVT prophylaxis: Holding heparin 5000 units subcutaneous every 8 hours GI prophylaxis: None Code status: Full code * Care Plan - Murtaza Couch RN - 05/26/2025 10:43 AM EST Problem: Adult Inpatient Plan of Care Goal: Plan of Care Review Outcome: Ongoing, Progressing Flowsheets (Taken 05/26/2025 1040) Progress: improving Outcome Evaluation: pt agreeable to current POC Plan of Care Reviewed With: patient Goal: Patient-Specific Goal (Individualized) Outcome: Ongoing, Progressing Flowsheets (Taken 05/26/2025 08) Patient/Family-Specific Goals (Include Timeframe): pt will rate pain at or below pts stated pain goal during shift Individualized Care Needs: pain management Anxieties, Fears or Concerns: pain Goal: Absence of Hospital-Acquired Illness or Injury Outcome: Ongoing, Progressing Intervention: Identify and Manage Fall Risk Flowsheets (Taken 05/26/2025 08) Safety Promotion/Fall Prevention: activity supervised Intervention: Prevent Skin Injury Flowsheets Taken 05/26/2025 1000 Body Position: weight shifting Taken 05/26/2025 08 Skin Protection: incontinence pads utilized Intervention: Prevent and Manage VTE (Venous Thromboembolism) Risk Flowsheets (Taken 05/26/2025 08) VTE Prevention/Management: bilateral lower extremity SCDs (sequential compression devices) off patient refused intervention Intervention: Prevent Infection Flowsheets (Taken 05/26/2025 1040) Infection Prevention: hand hygiene promoted environmental surveillance performed personal protective equipment utilized rest/sleep promoted equipment surfaces disinfected single patient room provided Goal: Optimal Comfort and Wellbeing Outcome: Ongoing, Progressing Intervention: Monitor Pain and Promote Comfort Flowsheets (Taken 05/26/2025 08) Pain Management Interventions: medication (see MAR) Intervention: Provide Person-Centered Care Flowsheets (Taken 05/26/2025 1040) Trust Relationship/Rapport: care explained questions answered choices provided questions encouraged emotional support provided reassurance provided empathic listening provided thoughts/feelings acknowledged Problem: Infection Goal: Absence of Infection Signs and Symptoms Outcome: Ongoing, Progressing Intervention: Prevent or Manage Infection Flowsheets Taken 05/26/2025 104 Infection Management: aseptic technique maintained Fever Reduction/Comfort Measures: lightweight bedding lightweight clothing Taken 05/26/2025799 Isolation Precautions: precautions maintained protective Problem: Pain Acute Goal: Optimal Pain Control and Function Outcome: Ongoing, Progressing Intervention: Optimize Psychosocial Wellbeing Flowsheets (Taken 05/26/2025 104) Supportive Measures: active listening utilized Diversional Activities: television Spiritual Activities Assistance: affirmation provided Intervention: Develop Pain Management Plan Flowsheets (Taken 05/26/2025799) Pain Management Interventions: medication (see MAR) Intervention: Prevent or Manage Pain Flowsheets (Taken 05/26/2025 104) Sensory Stimulation Regulation: care clustered Complementary Therapy: music therapy provided Bowel Elimination Promotion: adequate fluid intake promoted Sleep/Rest Enhancement: awakenings minimized consistent schedule promoted Medication Review/Management: medications reviewed Problem: Functional Deficit Goal: Improved Balance and Postural Control Outcome: Ongoing, Progressing Intervention: Optimize Balance and Safe Activity Flowsheets Taken 05/26/20251039 Adaptive Equipment Use: other (see comments) Self-Care Promotion: independence encouraged BADL personal objects within reach BADL personal routines maintained Taken 05/26/2025799 Activity Management: activity adjusted per tolerance Safety Promotion/Fall Prevention: activity supervised Problem: Self-Care Deficit Goal: Improved Ability to Complete Activities of Daily Living Outcome: Ongoing, Progressing Intervention: Promote Activity and Functional Jerome Flowsheets (Taken 05/26/2025 1040) Activity Assistance Provided: assistance, stand-by Adaptive Equipment Use: other (see comments) Self-Care Promotion: independence encouraged BADL personal objects within reach BADL personal routines maintained Problem: Fall Injury Risk Goal: Absence of Fall and Fall-Related Injury Outcome: Ongoing, Progressing Intervention: Identify and Manage Contributors Flowsheets (Taken 05/26/2025 1040) Medication Review/Management: medications reviewed Self-Care Promotion: independence encouraged BADL personal objects within reach BADL personal routines maintained Intervention: Promote Injury-Free Environment Flowsheets (Taken 05/26/2025 0800) Safety Promotion/Fall Prevention: activity supervised Problem: Skin Injury Risk Increased Goal: Skin Health and Integrity Outcome: Ongoing, Progressing Intervention: Optimize Skin Protection Flowsheets Taken 05/26/2025 1040 Pressure Reduction Techniques: frequent weight shift encouraged Pressure Reduction Devices: pressure-redistributing mattress utilized Taken 05/26/2025 0800 Activity Management: activity adjusted per tolerance Skin Protection: incontinence pads utilized Head of Bed (HOB) Positioning: HOB elevated Intervention: Promote and Optimize Oral Intake Flowsheets (Taken 05/26/2025 1040) Oral Nutrition Promotion: physical activity promoted Nutrition Interventions: food preferences provided * Progress Notes - Daniel Corbett MD - 05/26/2025 7:19 AM EST Subjective Noe Caraballo is a 75 y.o. 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 Hospital Medicine consulted for admission as Lifepointdeclined Patient seen and examined at the bedside this afternoon, he reported ongoing abdominal pain lower generalized x 1 week, shooting pain constant. He denied fever chills nausea vomiting diarrhea or constipation, last BM yesterday. He notes worsening leg swelling over the last few days. He reports ongoing left sided tooth pain x 3 weeks which is severe, was due to get outpatient extraction with [facility]. He reports at baseline lives alone, daughter is next of contact and he ambulated with walker at baseline, some weakness recently. In ED, labs with WCC 57.28 (48-67 prior), differential pending, Cr near baseline at 2.18, alk phos similar to baseline 309 and mildly elevated bilirubin 1.6. Blood cultures were obtained on admission, he was given ceftriaxone 2g IV. 05/20/2025: Initial workup showed leukocytosis (WBC 57.28), mild anemia, thrombocytosis, elevated BUN/Cr, and cholestatic LFTs; paracentesis confirmed SBP (PMN 321, no organisms); started IV ceftriaxone 2g daily; blood cultures pending; IV bumetanide 1 mg initiated for volume overload; panorex ordered for dental pain; liver US and chest X-ray planned; VTE prophylaxis started; full code status documented. 05/21/2025: Labs showed persistent leukocytosis (WBC 54.86), stable renal function, and mild hepatic dysfunction; panorex revealed carious erosion of left mandibular molar, no abscess; liver US showed mild chronic parenchymal changes, cholelithiasis, and ascites; chest X-ray suggested mild vascularcongestion; continued ceftriaxone and started ciprofloxacin prophylaxis for recurrent SBP; IV bumetanide continued for diuresis; hematology consult found no TLS and cleared for dental extraction without antimicrobial prophylaxis; recommended liver Doppler for portal vein thrombosis; PT/OT consults initiated for functional decline; discharge anticipated in 2-4 days pending dental procedure and stability. 05/22/2025: US Doppler confirmed patent portal vein; transitioned from ceftriaxone to mg BID for SBP treatment and prophylaxis; IV bumetanide continued, with improved diuresis (UOP 1950 mL, weight down from 205 to 186 lbs, edema improved); dental consult confirmed gross decay of #19, extraction planned pending pre-procedure labs and coordination; PT/OT recommended home dischargewith 24-hour assistance, daughter willing to provide care; no new infection or decompensation; discharge readiness contingent on dental extraction and volume status stabilization. 05/23/2025: Edema further improved; transitioned to oral bumetanide 1 mg (home regimen); electrolytes to be rechecked post-diuresis; continued ciprofloxacin for SBP prophylaxis; dental extraction scheduling in progress; medically ready for discharge in 1-2 days, with home assistance arranged; family prefers home discharge, patient declines rehab placement. 05/24/2025: Stable exam and vitals; continued ciprofloxacin for SBP treatment and prophylaxis; oralbumetanide maintained; dental extraction scheduled for 05/25 at 1400, perioperative clearance obtained, DVT prophylaxis held; discharge planning finalized for home with 24-hour assistance, daughter to provide temporary care; outpatient GI and hematology follow-up arranged; no additional paracentesis planned prior to discharge. 05/25/2025: Patient is lying in bed no issues he is cleaning himself up with wipes. Participating discharge tomorrow. Significant leukocytosis worsened, WBC increased from 54.86 to 136.10 10*3/uL, with marked neutrophilia (neutrophils absolute 121.13 10*3/uL, 89%) and lymphopenia (lymphocytes absolute 0.00 10*3/uL, 0%). Platelet count decreased from 158 to 100 10*3/uL. Potassium increased from 4.6 to 5.7 mmol/L. Sodium decreased from 136 to 133 mmol/L. Net negative fluid balance increased from -500mL to -1880mL, with urine output rising from 1700mL to 1880mL. We will need to follow up patient's white count tomorrow. Plan to have extraction of tooth. Continue with ciprofloxacin for SBP treatment. 05/26/2025: Overnight patient was having bleeding tooth. Dental resident team came by to see him. WBC remains markedly elevated (previously 136.10, now 139.78 x10^3/uL), with persistent neutrophilia (absolute neutrophils 121.13 to 118.81 x10^3/uL) and slight improvement in lymphopenia (absolute lymphocytes 0.00 to 1.40 x10^3/uL); platelets decreased further from 100 to 85 x10^3/uL. Total bilirubin increased from 1.2 to 1.8 mg/dL; alkaline phosphatase increased from 324 to 408 U/L; AST increasedfrom 52 to 65 U/L; albumin slightly decreased from 3.3 to 3.2 g/dL. BUN increased from 36 to 42 mg/dL and creatinine from 2.24 to 2.30 mg/dL; eGFR essentially unchanged (30.0 to 29.1 mL/min/1.73m2). Blood cultures finalized as no growth. Tranexamic acid oral rinse ordered for post- dental extractionbleeding prevention/management. Diet order updated to easy to chew, 2g sodium restriction, and 1800mL fluid restriction. Patient was found to have hyperkalemia potassium of 5.2. Hyperkalemia for call given with of sodium bicarbonate insulin dextrose and a 500 cc normal saline. This afternoon patient is altered speaking in short sentences but is not himself. We will monitor him closely. Started on Augmentin 875-125 mg by mouth twice daily for 5 days. We will continue to monitor the patient, notyet medically ready for discharge. Review of Systems All other systems reviewed and are negative. Objective Vitals Temp: [36.3 ??C (97.3 ??F)-36.6 ??C (97.9 ??F)] 36.4 ??C (97.5 ??F) Heart Rate: [84-88] 88 BP: (103-110)/(66-72) 105/70 Physical Exam Vitals reviewed. Constitutional: Appearance: He is obese. HENT: Head: Normocephalic and atraumatic. Nose: Nose normal. Mouth/Throat: Mouth: Mucous membranes are moist. Eyes: General: No scleral icterus. Cardiovascular: Rate and Rhythm: Normal rate. Pulses: Normal pulses. Heart sounds: No murmur heard. No friction rub. No gallop. Pulmonary: Effort: Pulmonary effort is normal. Abdominal: General: Abdomen is flat. There is no distension. Palpations: There is no mass. Tenderness: There is no abdominal tenderness. Skin: General: Skin is warm. Capillary Refill: Capillary refill takes less than 2 seconds. Neurological: General: No focal deficit present. Mental Status: He is alert and oriented to person, place, and time. Mental status is at baseline. Assessment & Plan SBP (spontaneous bacterial peritonitis) Paroxysmal atrial fibrillation (CMS/HCC) Nonrheumatic mitral (valve) insufficiency Myeloproliferative disorder (CMS/HCC) Mixed dyslipidemia Lumbosacral radiculopathy Generalized weakness Gastro-esophageal reflux disease without esophagitis Coronary artery disease involving [place] coronary artery of [place] heart without angina pectoris Chronic kidney disease, stage 4 (severe) (CMS/HCC) ACC/AHA stage C chronic systolic heart failure Noe Caraballo is a 75 y.o. male with a known medical history ofHFrEF (30-35% in 10/23), recurrent ascites requiring at least biweekly paracentesis, CKD, myelofibrosis s/p splenectomy presenting following paracentesis on 05/18 showing 321 PMNs admitted for SBP whose course has been complicated by fluid overload and dental extraction Carious erosion L mandibular first molar Perioperative clearance: 3 weeks of left lower tooth pain,has been cutting into his lip on the inside Evaluated outpatient previously with [facility] 04/26/25 Dentistry consulted, appreciate recs, going for extraction on 05/25 at 1400 Holding DVT PPX RCRI 3 points, 10 % risk of MACE METS >4 Hyperkalemia: Likely due to volume overload. However concern for tumor lysis syndrome. We will alsofollow up uric acid LDH and other sign Continue with sodium bicarbonate, normal saline 500 cc fluid bolus, 1 time dose of Lokelma which was not given Monitor BUN and creatinine daily Follow up potassium levels tomorrow morning Follow up uric acid LDH tomorrow morning. Chronic HFrEF, Volume overload: TTE 10/23 LV dilation, LV aneurysm apical wall segment, EF 30-35% grade II moderate diastolic dysfunction, LV filling pressure elevated, inferolateral/anteroseptal/anterior/apical moody hypokinetic. F/W Dr. Barber, last seen 02/05/25, NYHA class 3, ACC/AHA stage C. Did NOT tolerate GDMT in past. Off home diuretics for unclear reasons, such that presented with worsening swelling OA. However never requiring supplemental oxygen, no difficulty breathing, no concern for pulmonary edema so Continue PO diuresis with bumex 1 mg which is home regimen Defer repeat TTE given known inciting agent of non-compliance with diuretics Recurrent SBP, Recurrent ascites requiring monthly paracentesis: Para 05/18 PMN 321, GS moderate PMNs, no organisms seen. HX SBP, ?last episode 07/25 before and after which supposed to be on ciprofloxacin maintenance. Difficult medication compliance given limited assistance at home. Afebrile, HDS, reassuring abdominal exam. Do not expect will need para prior to DC based on monthly schedule Continue cipro 500 BID D4/5 for SBP TX Restart ciprofloxacin PPX OP to prevent recurrence GI FU OP to ascertain lack of primary liver pathology Inability to perform ADLs: Chart review multiple missed appointments over last 6 months, unfortunately with hospitalizations resulting from medication non-compliance PT/OT recommending home with 24-hour assistance Daughter willing to take patient home with her, however this seems like a temporary situation per patient Chronic CKD-cr baseline creatinine around 2.18 to 2.3. CAD-statin, need ASA Myelofibrosis s/p splenectomy-heme consulted, OK with 6 month FU FENGI: Regular diet DVT prophylaxis: Holding heparin 5000 units subcutaneous every 8 hours GI prophylaxis: None Code status: Full code Disposition: Continue admission to Medicine at this time likely discharge tomorrow not yet medically ready Daniel Corbett MD Internal Medicine Hospitalist [employer] Department of Internal Medicine Division of Hospital Medicine [address] [address] Preferred method is secure chat or cell phone at [phone] Medically Ready for Discharge:Anticipated Tomorrow * Nursing Note - Desiree De Oliveira RN - 05/26/2025 2:00 AM EST Notified Tigist Castillo MD and Olga Nolasco DDS of increased bleeding and clots from tooth extraction sites, Dr. Nolasco came to bedside to evaluate the pt. Orders received, will continue to monitor * Care Plan - Desiree De Oliveira RN - 05/25/2025 9:33 PM EST Problem: Adult Inpatient Plan of Care Goal: Plan of Care Review Outcome: Ongoing, Progressing Flowsheets (Taken 05/25/20252129) Progress: improving Outcome Evaluation: pt agrees with poc Plan of Care Reviewed With: patient Goal: Patient-Specific Goal (Individualized) Outcome: Ongoing, Progressing Flowsheets (Taken 05/25/20251999) Patient/Family-Specific Goals (Include Timeframe): pt will rate pain score 4/10 or less during shift Individualized Care Needs: pain management Anxieties, Fears or Concerns: pain postop Goal: Absence of Hospital-Acquired Illness or Injury Outcome: Ongoing, Progressing Intervention: Identify and Manage Fall Risk Flowsheets (Taken 05/25/20251999) Safety Promotion/Fall Prevention: activity supervised clutter-free environment maintained fall prevention program maintained lighting adjusted nonskid shoes/slippers when out of bed safety round/check completed Goal: Optimal Comfort and Wellbeing Outcome: Ongoing, Progressing Intervention: Monitor Pain and Promote Comfort Flowsheets (Taken 05/25/20252129) Pain Management Interventions: care clustered rest pain management plan reviewed with patient/caregiver Problem: Infection Goal: Absence of Infection Signs and Symptoms Outcome: Ongoing, Progressing Intervention: Prevent or Manage Infection Flowsheets (Taken 05/25/20252129) Infection Management: aseptic technique maintained Fever Reduction/Comfort Measures: lightweight bedding lightweight clothing Isolation Precautions: precautions maintained Problem: Pain Acute Goal: Optimal Pain Control and Function Outcome: Ongoing, Progressing Intervention: Optimize Psychosocial Wellbeing Flowsheets (Taken 05/25/20252129) Supportive Measures: active listening utilized decision-making supported self-care encouraged Diversional Activities: television Spiritual Activities Assistance: affirmation provided Problem: Functional Deficit Goal: Improved Balance and Postural Control Outcome: Ongoing, Progressing Intervention: Optimize Balance and Safe Activity Flowsheets Taken 05/25/20252129 Activity Management: activity adjusted per tolerance Self-Care Promotion: independence encouraged Taken 05/25/20251999 Safety Promotion/Fall Prevention: activity supervised clutter-free environment maintained fall prevention program maintained lighting adjusted nonskid shoes/slippers when out of bed safety round/check completed Problem: Self-Care Deficit Goal: Improved Ability to Complete Activities of Daily Living Outcome: Ongoing, Progressing Intervention: Promote Activity and Functional [place] Flowsheets (Taken 05/25/20252129) Activity Assistance Provided: assistance, stand-by education provided Self-Care Promotion: independence encouraged Problem: Fall Injury Risk Goal: Absence of Fall and Fall-Related Injury Outcome: Ongoing, Progressing Intervention: Identify and Manage Contributors Flowsheets (Taken 05/25/20252129) Medication Review/Management: medications reviewed Self-Care Promotion: independence encouraged Problem: Skin Injury Risk Increased Goal: Skin Health and Integrity Outcome: Ongoing, Progressing Intervention: Optimize Skin Protection Flowsheets (Taken 05/25/20252129) Activity Management: activity adjusted per tolerance Pressure Reduction Techniques: frequent weight shift encouraged heels elevated off bed Skin Protection: incontinence pads utilized Head of Bed (HOB) Positioning: HOB elevated * Progress Notes - Darius Overton - 05/25/2025 1:03 PM EST Physical Therapy Treatment Patient Name: Noe Caraballo Today's Date: 05/25/2025 PT Discharge Recommendations: Home with assistance Equipment Recommended: Patient owns appropriate equipment Subjective Patient reported doing better and waiting to have procedure later in day. Participants in Care Family/Caregiver Present: No Presentation Oxygen Therapy: None (Room air) Lines and Tubes: Intravenous access Pre-Session: Supine, Head of bed elevated, Lines intact Post-Session: Sitting in chair, RN notified, Lines intact, Chair alarm, Call light in reach Post-Session Comments: Patient left with all needs within reach and positioned for comfort Precautions Left Lower Extremity Weight Bearing Status: Weight Bearing as Tolerated Right Lower Extremity Weight Bearing Status: Weight Bearing as Tolerated Left Upper Extremity Weight Bearing Status : Weight bearing as tolerated Right Upper Extremity Weight Bearing Status : Weight bearing as tolerated Medical Precautions: Fall precautions Objective Pain Patient reported continued oral pain but did not rate when asked, positioned for comfort. Delirium Screening RASS: Alert and calm Confusion Assessment Method-ICU (CAM-ICU/PCAM-ICU) Feature 3: Altered Level of Consciousness: Negative Bed Mobility Bed Mobility Exam: Scooting/Bridging Level of Jerome: Stand-by assist Physical/Nonphysical Assist: Supervision Bed Mobility Exam: Supine to Sit Level of Jerome: Stand-by assist Physical/Nonphysical Assist: Supervision Transfers Transfer Exam: Sit to stand Level of Jerome: Stand-by assist Physical/Nonphysical Assist: Supervision Assistive Device: Walker, rolling Transfer Exam: Stand to Sit Level of Jerome: Stand-by assist Physical/Nonphysical Assist: Supervision Assistive Device: Walker, rolling Ambulation Device: Rolling walker Assistance: Standby assist Distance : 300 ft. Ambulation Comments: Patient demonstrates decreased gait speeed and agustin with no loss of balance Therapeutic Activity ( 23 minutes) Patient participated in seated and standing balance activities with physical therapist to promote further out of bed activities and increase functional independence to reduce caregiver burden. Patient required increased time to complete mobility activities. Standardized Assessments Standardized Assessments Standardized Assessments: AMPA 6-Clicks Mobility Assessment AMPA 6-Clicks Mobility Assessment Difficulty patient has turning over in bed (including adjusting bedclothes, sheets, and blankets)?:None Difficulty patient has sitting down on and standing up from a chair with arms (wheelchair, bedside commode, etc.)?: None Difficulty patient has moving from lying on back to sitting on the side of the bed?: None How much help does the patient need moving to and from a bed to a chair (including a wheelchair)?: None How much help does the patient need to walk in hospital room?: A little How much help does the patient need climbing 3-5 steps with a railing?: A little [facility] 6-Clicks Mobility Assessment Total : 22 Assessment Patient demonstrates improving mobility but continues to require increased cues and assist for positioning to increase efficiency of transfers. Patient continues to demonstrate decreased functional mobility and would benefit from continued physical therapy to address needs. PT Recommendations Discharge Destination: Home with assistance Discharge Equipment: Patient owns appropriate equipment Plan Progress mobility as able. PT Goals PT GOAL DETAILS Goal Established Date Time Frame Goal Status PT Goal 1: Patient will be independent with HEP, discharge recommendations 05/21/25 2 weeks PT Goal 2: Patient will transfer supine<>sit independently 05/21/25 2 weeks PT Goal 3: Patient will transfer sit-stand and bed<>chair independently 05/21/25 2 weeks PT Goal 4: Patient will ambulate 450 ft. with MOD I and AAD 05/21/25 2 weeks Written by Darius Overton on 05/25/25 at 1:03 PM. * Progress Notes - Jacki Murphy RN - 05/25/2025 12:45 PM EST Case Management Adult Progress Note Noe Caraballo 75 y.o. male CSN: [id number] Admission: 05/20/2025 10:51 AM Primary Problem: SBP (spontaneous bacterial peritonitis) Anticipated Discharge Date: 05/25/25 Has Discharge Plans Changed? No- dtr will take patient home for a few days after hospitalization. Medically Ready for Discharge: Anticipated Tomorrow Additional Comments Plan of Care and Discharge Plan reviewed with care team this am. Patient was admitted on 05/20 withSBP. IV abx completed. WBC up today. Will monitor. Patient also going for tooth extraction this afternoon. Per MD, should be ready to DC tomorrow. Dtr also concerned about recent decline and plans to take patient home with her and keep him through the holidays. Dtr updated on plan to discharge tomorrow. CM will continue to follow up. Jacki Murphy RN * Progress Notes - Nellie Farmer - 05/25/2025 10:06 AM EST Occupational Therapy Treatment Patient Name: Noe EASONN: [id number] Today's Date: 05/25/2025 OT Discharge Recommendations: Home with assistance Equipment Recommended: Patient owns appropriate equipment Subjective Agreeable to participation Participants in Care Family/Caregiver Present: No Presentation Oxygen Therapy: None (Room air) Lines and Tubes: Intravenous access Pre-Session: Supine, Head of bed elevated, Lines intact Post-Session: Sitting in chair, Lines intact, Chair alarm, Call light in reach Precautions Left Lower Extremity Weight Bearing Status: Weight Bearing as Tolerated Right Lower Extremity Weight Bearing Status: Weight Bearing as Tolerated Left Upper Extremity Weight Bearing Status : Weight bearing as tolerated Right Upper Extremity Weight Bearing Status : Weight bearing as tolerated Medical Precautions: Fall precautions Objective Pain None reported Delirium Screening RASS: Alert and calm Confusion Assessment Method-ICU (CAM-ICU/PCAM-ICU) Feature 3: Altered Level of Consciousness: Negative Cognition Cognition Overall Cognitive Status: Within Functional Limits Arousal/Alertness: Appropriate responses to stimuli Mood/Behavior: Alert Orientation Level: Oriented X4 Single Step Commands: Consistently Multi-Step Commands: Consistently Method of Communication: Verbal Bed Mobility Bed Mobility Exam: Scooting/Bridging Level of Jerome: Stand-by assist Physical/Nonphysical Assist: Supervision Bed Mobility Exam: Supine to Sit Level of Jerome: Stand-by assist Physical/Nonphysical Assist: Supervision Transfers Transfer Exam: Sit to stand Level of Jerome: Stand-by assist Physical/Nonphysical Assist: Supervision Assistive Device: Walker, rolling Transfer Exam: Stand to Sit Level of Jerome: Stand-by assist Physical/Nonphysical Assist: Supervision Assistive Device: Walker, rolling Transfer Exam: Bed to Chair/Chair to Bed Level of Jerome: Stand-by assist Physical/Nonphysical Assist: Supervision Assistive Device: Walker, rolling Self-Care Interventions Feeding Feeding Level of Assistance: Setup Feeding Where Assessed: Chair Level Grooming Grooming Level of Assistance: Setup, SBA Grooming Where Assessed: Edge of bed UE Dressing UE Dressing Level of Assistance: Minimum assistance UE Dressing Where Assessed: Edge of bed Lower Extremity Dressing Pants Level of Assistance: Minimum assistance Sock Level of Assistance: Minimum assistance LE Dressing Where Assessed: Edge of bed Toileting Toileting Interventions: pt continues to use purewick system for urination but does display functional capacity to use urinal, BSC or walk to bathroom Assessment Pt participated in the above interventions to target functional strength and endurance, in effort to promote increased independence with functional mobility, to allow increased safe participation in ADL's. Pt did display increased activity tolerance to upright positioning and OOB activity this session. OT Recommendations Discharge Destination: Home with assistance Discharge Equipment: Patient owns appropriate equipment Plan Pt can continue to benefit from skilled OT interventions to address identified impairments and progress toward independence with function in self care and mobility; current discharge plans remain appropriate at this time. Goals OT GOAL DETAILS Goal Established Date Time Frame Goal Status OT Goal 1: Pt will be Mod I for functional ambulation to and from bathroom 05/21/25 2 weeks OT Goal 2: Pt will be independent with toileting (managing clothes and hygiene) 05/21/25 2 weeks OT Goal 3: Pt will be independent with all LB dressing, starting in seated position for safety 05/21/25 2 weeks Written by Nellie Farmer on 05/25/25 at 11:56 AM. * Progress Notes - Daniel Corbett MD - 05/25/2025 7:32 AM EST Subjective Noe Caraballo is a 75 y.o. 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 Hospital Medicine consulted for admission as [facility] Patient seen and examined at the bedside this afternoon, he reported ongoing abdominal pain lower generalized x 1 week, shooting pain constant. He denied fever chills nausea vomiting diarrhea or constipation, last BM yesterday. He notes worsening leg swelling over the last few days. He reports ongoing left sided tooth pain x 3 weeks which is severe, was due to get outpatient extraction with [facility]. He reports at baseline lives alone, daughter is next of contact and he ambulated with walker at baseline, some weakness recently. In ED, labs with WCC 57.28 (48-67 prior), differential pending, Cr near baseline at 2.18, alk phos similar to baseline 309 and mildly elevated bilirubin 1.6. Blood cultures were obtained on admission, he was given ceftriaxone 2g IV. 05/20/2025: Initial workup showed leukocytosis (WBC 57.28), mild anemia, thrombocytosis, elevated BUN/Cr, and cholestatic LFTs; paracentesis confirmed SBP (PMN 321, no organisms); started IV ceftriaxone 2g daily; blood cultures pending; IV bumetanide 1 mg initiated for volume overload; panorex ordered for dental pain; liver US and chest X-ray planned; VTE prophylaxis started; full code status documented. 05/21/2025: Labs showed persistent leukocytosis (WBC 54.86), stable renal function, and mild hepatic dysfunction; panorex revealed carious erosion of left mandibular molar, no abscess; liver US showed mild chronic parenchymal changes, cholelithiasis, and ascites; chest X-ray suggested mild vascularcongestion; continued ceftriaxone and started ciprofloxacin prophylaxis for recurrent SBP; IV bumetanide continued for diuresis; hematology consult found no TLS and cleared for dental extraction without antimicrobial prophylaxis; recommended liver Doppler for portal vein thrombosis; PT/OT consults initiated for functional decline; discharge anticipated in 2-4 days pending dental procedure and stability. 05/22/2025: US Doppler confirmed patent portal vein; transitioned from ceftriaxone to [id number] mg BID for SBP treatment and prophylaxis; IV bumetanide continued, with improved diuresis (UOP 1950 mL, weight down from 205 to 186 lbs, edema improved); dental consult confirmed gross decay of #19, extraction planned pending pre-procedure labs and coordination; PT/OT recommended home dischargewith 24-hour assistance, daughter willing to provide care; no new infection or decompensation; discharge readiness contingent on dental extraction and volume status stabilization. 05/23/2025: Edema further improved; transitioned to oral bumetanide 1 mg (home regimen); electrolytes to be rechecked post-diuresis; continued ciprofloxacin for SBP prophylaxis; dental extraction scheduling in progress; medically ready for discharge in 1-2 days, with home assistance arranged; family prefers home discharge, patient declines rehab placement. 05/24/2025: Stable exam and vitals; continued ciprofloxacin for SBP treatment and prophylaxis; oralbumetanide maintained; dental extraction scheduled for 05/25 at 1400, perioperative clearance obtained, DVT prophylaxis held; discharge planning finalized for home with 24-hour assistance, daughter to provide temporary care; outpatient GI and hematology follow-up arranged; no additional paracentesis planned prior to discharge. 05/25/2025: Patient is lying in bed no issues he is cleaning himself up with wipes. Participating discharge tomorrow. Significant leukocytosis worsened, WBC increased from 54.86 to 136.10 10*3/uL, with marked neutrophilia (neutrophils absolute 121.13 10*3/uL, 89%) and lymphopenia (lymphocytes absolute 0.00 10*3/uL, 0%). Platelet count decreased from 158 to 100 10*3/uL. Potassium increased from 4.6 to 5.7 mmol/L. Sodium decreased from 136 to 133 mmol/L. Net negative fluid balance increased from -500mL to -1880mL, with urine output rising from 1700mL to 1880mL. We will need to follow up patient's white count tomorrow. Plan to have extraction of tooth. Continue with ciprofloxacin for SBP treatment. Review of Systems All other systems reviewed and are negative. Objective Vitals Temp: [36.3 ??C (97.3 ??F)-36.7 ??C (98 ??F)] 36.6 ??C (97.9 ??F) Heart Rate: [80-89] 84 Resp: [18-20] 18 BP: (98-120)/(63-83) 116/76 Physical Exam Vitals reviewed. Constitutional: Appearance: He is obese. HENT: Head: Normocephalic and atraumatic. Nose: Nose normal. Mouth/Throat: Mouth: Mucous membranes are moist. Eyes: General: No scleral icterus. Cardiovascular: Rate and Rhythm: Normal rate. Pulses: Normal pulses. Heart sounds: No murmur heard. No friction rub. No gallop. Pulmonary: Effort: Pulmonary effort is normal. Abdominal: General: Abdomen is flat. There is no distension. Palpations: There is no mass. Tenderness: There is no abdominal tenderness. Skin: General: Skin is warm. Capillary Refill: Capillary refill takes less than 2 seconds. Neurological: General: No focal deficit present. Mental Status: He is alert and oriented to person, place, and time. Mental status is at baseline. Assessment & Plan SBP (spontaneous bacterial peritonitis) Paroxysmal atrial fibrillation (CMS/HCC) Nonrheumatic mitral (valve) insufficiency Myeloproliferative disorder (CMS/HCC) Mixed dyslipidemia Lumbosacral radiculopathy Generalized weakness Gastro-esophageal reflux disease without esophagitis Coronary artery disease involving [place] coronary artery of [place] heart without angina pectoris Chronic kidney disease, stage 4 (severe) (CMS/HCC) ACC/AHA stage C chronic systolic heart failure Noe Caraballo is a 75 y.o. male with a known medical history ofHFrEF (30-35% in 10/23), recurrent ascites requiring at least biweekly paracentesis, CKD, myelofibrosis s/p splenectomy presenting following paracentesis on 05/18 showing 321 PMNs admitted for SBP whose course has been complicated by fluid overload and dental extraction Carious erosion L mandibular first molar Perioperative clearance: 3 weeks of left lower tooth pain,has been cutting into his lip on the inside Evaluated outpatient previously with [facility] 04/26/25 Dentistry consulted, appreciate recs, going for extraction on 05/25 at 1400 Holding DVT PPX RCRI 3 points, 10 % risk of MACE METS >4 Chronic HFrEF, Volume overload: TTE 10/23 LV dilation, LV aneurysm apical wall segment, EF 30-35% grade II moderate diastolic dysfunction, LV filling pressure elevated, inferolateral/anteroseptal/anterior/apical moody hypokinetic. F/W Dr. Barber, last seen 02/05/25, NYHA class 3, ACC/AHA stage C. Did NOT tolerate GDMT in past. Off home diuretics for unclear reasons, such that presented with worsening swelling OA. However never requiring supplemental oxygen, no difficulty breathing, no concern for pulmonary edema so Continue PO diuresis with bumex 1 mg which is home regimen Defer repeat TTE given known inciting agent of non-compliance with diuretics Recurrent SBP, Recurrent ascites requiring monthly paracentesis: Para 05/18 PMN 321, GS moderate PMNs, no organisms seen. HX SBP, ?last episode 07/25 before and after which supposed to be on ciprofloxacin maintenance. Difficult medication compliance given limited assistance at home. Afebrile, HDS, reassuring abdominal exam. Do not expect will need para prior to DC based on monthly schedule Continue cipro 500 BID D4/5 for SBP TX Restart ciprofloxacin PPX OP to prevent recurrence GI FU OP to ascertain lack of primary liver pathology Inability to perform ADLs: Chart review multiple missed appointments over last 6 months, unfortunately with hospitalizations resulting from medication non-compliance PT/OT recommending home with 24-hour assistance Daughter willing to take patient home with her, however this seems like a temporary situation per patient Chronic CKD-cr baseline CAD-statin, need ASA Myelofibrosis s/p splenectomy-heme consulted, OK with 6 month FU FENGI: Regular diet DVT prophylaxis: Holding heparin 5000 units subcutaneous every 8 hours GI prophylaxis: None Code status: Full code Disposition: Continue admission to Medicine at this time likely discharge tomorrow Daniel Corbett MD Internal Medicine Hospitalist [employer] Department of Internal Medicine Division of Hospital Medicine [place] [phone] Preferred method is secure chat or cell phone at [phone] Medically Ready for Discharge:Anticipated Tomorrow * Care Plan - Subha Iverson RN - 05/25/2025 12:22 AM EST Problem: Adult Inpatient Plan of Care Goal: Plan of Care Review Outcome: Ongoing, Progressing Flowsheets (Taken 05/25/202515) Progress: no change Outcome Evaluation: pt agreeable to plan of care Plan of Care Reviewed With: patient Goal: Patient-Specific Goal (Individualized) Outcome: Ongoing, Progressing Flowsheets (Taken 05/24/20251999) Patient/Family-Specific Goals (Include Timeframe): patient will verbalize understanding of plan of care Individualized Care Needs: therapeutic communication Anxieties, Fears or Concerns: procedure Goal: Absence of Hospital-Acquired Illness or Injury Outcome: Ongoing, Progressing Intervention: Identify and Manage Fall Risk Flowsheets (Taken 05/25/202515) Safety Promotion/Fall Prevention: activity supervised assistive device/personal items within reach lighting adjusted room organization consistent Intervention: Prevent Skin Injury Flowsheets (Taken 05/25/202515) Body Position: neutral body alignment neutral head position Skin Protection: incontinence pads utilized Intervention: Prevent and Manage VTE (Venous Thromboembolism) Risk Flowsheets (Taken 05/25/202515) VTE Prevention/Management: previous patient education reinforced bilateral SCDs (sequential compression devices) off Intervention: Prevent Infection Flowsheets (Taken 05/25/202515) Infection Prevention: environmental surveillance performed rest/sleep promoted visitors restricted/screened Goal: Optimal Comfort and Wellbeing Outcome: Ongoing, Progressing Intervention: Monitor Pain and Promote Comfort Flowsheets (Taken 05/25/202515) Pain Management Interventions: position adjusted quiet environment facilitated relaxation techniques promoted pillow support provided Intervention: Provide Person-Centered Care Flowsheets (Taken 05/25/202515) Trust Relationship/Rapport: care explained choices provided emotional support provided reassurance provided Problem: Infection Goal: Absence of Infection Signs and Symptoms Outcome: Ongoing, Progressing Intervention: Prevent or Manage Infection Flowsheets (Taken 05/25/202515) Infection Management: aseptic technique maintained Fever Reduction/Comfort Measures: lightweight bedding lightweight clothing Isolation Precautions: precautions maintained protective Problem: Pain Acute Goal: Optimal Pain Control and Function Outcome: Ongoing, Progressing Intervention: Optimize Psychosocial Wellbeing Flowsheets (Taken 05/25/202515) Supportive Measures: active listening utilized relaxation techniques promoted positive reinforcement provided Diversional Activities: television smartphone Spiritual Activities Assistance: personal rituals encouraged Intervention: Develop Pain Management Plan Flowsheets (Taken 05/25/202515) Pain Management Interventions: position adjusted quiet environment facilitated relaxation techniques promoted pillow support provided Intervention: Prevent or Manage Pain Flowsheets (Taken 05/25/202515) Sensory Stimulation Regulation: quiet environment promoted Bowel Elimination Promotion: adequate fluid intake promoted Sleep/Rest Enhancement: awakenings minimized family presence promoted relaxation techniques promoted Medication Review/Management: medications reviewed Problem: Functional Deficit Goal: Improved Balance and Postural Control Outcome: Ongoing, Progressing Intervention: Optimize Balance and Safe Activity Flowsheets (Taken 05/25/202515) Activity Management: activity adjusted per tolerance previous patient education reinforced Safety Promotion/Fall Prevention: activity supervised assistive device/personal items within reach lighting adjusted room organization consistent Self-Care Promotion: independence encouraged BADL personal objects within reach Problem: Self-Care Deficit Goal: Improved Ability to Complete Activities of Daily Living Outcome: Ongoing, Progressing Intervention: Promote Activity and Functional Jerome Flowsheets (Taken 05/25/202515) Activity Assistance Provided: assistance, stand-by education provided previous patient education reinforced Self-Care Promotion: independence encouraged BADL personal objects within reach Problem: Fall Injury Risk Goal: Absence of Fall and Fall-Related Injury Outcome: Ongoing, Progressing Intervention: Identify and Manage Contributors Flowsheets (Taken 05/25/202515) Medication Review/Management: medications reviewed Self-Care Promotion: independence encouraged BADL personal objects within reach Intervention: Promote Injury-Free Environment Flowsheets (Taken 05/25/202515) Safety Promotion/Fall Prevention: activity supervised assistive device/personal items within reach lighting adjusted room organization consistent * Query Clarification Note - Erika Solorzano MD - 05/24/2025 5:44 PM EST Please clarify the acuity of the documented heart failure with reduced ejection fraction: []Acute on Chronic HFrEF [x]Chronic HFrEF [x]Other, please specify, volume overload This documentation will become part of the patient's medical record. * Care Plan - Sidra Mixon RN - 05/24/2025 5:09 PM EST Problem: Adult Inpatient Plan of Care Goal: Plan of Care Review Outcome: Ongoing, Progressing Flowsheets Taken 05/24/20251705 by Sidra Mixon RN Outcome Evaluation: POC discussed Plan of Care Reviewed With: patient Taken 05/23/20252202 by Sydney Omalley RN Progress: no change Goal: Patient-Specific Goal (Individualized) Outcome: Ongoing, Progressing Flowsheets (Taken 05/24/2025 0800) Patient/Family-Specific Goals (Include Timeframe): patient will remain free from falls this shift Individualized Care Needs: Active listening Anxieties, Fears or Concerns: Procedure(tooth) timing Goal: Absence of Hospital-Acquired Illness or Injury Outcome: Ongoing, Progressing Intervention: Prevent Skin Injury Flowsheets (Taken 05/24/20251705) Body Position: sitting up in bed Skin Protection: incontinence pads utilized Goal: Optimal Comfort and Wellbeing Outcome: Ongoing, Progressing Intervention: Provide Person-Centered Care Flowsheets (Taken 05/24/20251705) Trust Relationship/Rapport: care explained questions answered reassurance provided thoughts/feelings acknowledged Problem: Infection Goal: Absence of Infection Signs and Symptoms Outcome: Ongoing, Progressing Intervention: Prevent or Manage Infection Flowsheets (Taken 05/24/2025 1706) Fever Reduction/Comfort Measures: lightweight clothing Isolation Precautions: precautions maintained Problem: Pain Acute Goal: Optimal Pain Control and Function Outcome: Ongoing, Progressing Intervention: Optimize Psychosocial Wellbeing Flowsheets (Taken 05/24/2025 170) Supportive Measures: active listening utilized self-care encouraged Diversional Activities: television Problem: Functional Deficit Goal: Improved Balance and Postural Control Outcome: Ongoing, Progressing Intervention: Optimize Balance and Safe Activity Flowsheets (Taken 05/24/2025 170) Activity Management: up in chair up to bedside commode Safety Promotion/Fall Prevention: clutter-free environment maintained fall prevention program maintained lighting adjusted nonskid shoes/slippers when out of bed Self-Care Promotion: independence encouraged BADL personal routines maintained Problem: Self-Care Deficit Goal: Improved Ability to Complete Activities of Daily Living Outcome: Ongoing, Progressing Intervention: Promote Activity and Functional Jerome Flowsheets (Taken 05/24/20251705) Activity Assistance Provided: assistance, stand-by Self-Care Promotion: independence encouraged BADL personal routines maintained * Progress Notes - Jacki Murphy RN - 05/24/2025 3:17 PM EST Case Management Adult Progress Note Noe Caraballo 75 y.o. male CSN: [id number] Admission: 05/20/2025 10:51 AM Primary Problem: SBP (spontaneous bacterial peritonitis) Anticipated Discharge Date: 05/25/25 Has Discharge Plans Changed? No- dtr will take patient home for a few days after hospitalization. Medically Ready for Discharge: Anticipated Tomorrow Additional Comments Plan of Care and Discharge Plan reviewed with care team this am. Patient was admitted on 05/20 withSBP. On IV abx. Per MD, should be ready to DC tomorrow. Patient has previously been lost to follow up and will need appointments set up for him. Dtr also concerned about recent decline and plans to take patient home with her and keep him through the holidays. CM will continue to follow up. Jacki Murphy RN * Progress Notes - Erika Solorzano MD - 05/24/2025 7:39 AM EST Subjective Feeling well this morning. Reports that as long as he is able to get a list of his medications thathe should be able to take them at home. Has a home health nurse that comes 2-3 times a week to helphim with things. Cannot live with his darío rfull-time because she is already a wrap turner Objective Vitals Temp: [36.3 ??C (97.3 ??F)-36.7 ??C (98.1 ??F)] 36.3 ??C (97.3 ??F) Heart Rate: [80-93] 81 Resp: [23] 23 BP: (98-120)/(63-83) 120/83 Physical Exam Vitals reviewed. Constitutional: Appearance: Normal appearance. HENT: Head: Normocephalic and atraumatic. Eyes: Extraocular Movements: Extraocular movements intact. Cardiovascular: Rate and Rhythm: Normal rate and regular rhythm. Pulses: Normal pulses. Heart sounds: Normal heart sounds. Pulmonary: Effort: Pulmonary effort is normal. Breath sounds: Normal breath sounds. Abdominal: General: There is distension. Palpations: Abdomen is soft. Tenderness: There is no abdominal tenderness. There is no guarding. Musculoskeletal: General: Swelling (Trace) present. Normal range of motion. Cervical back: Normal range of motion. Right lower leg: Edema present. Left lower leg: Edema present. Skin: General: Skin is warm. Neurological: General: No focal deficit present. Mental Status: He is alert and oriented to person, place, and time. Psychiatric: Mood and Affect: Mood normal. Behavior: Behavior normal. Assessment & Plan SBP (spontaneous bacterial peritonitis) Paroxysmal atrial fibrillation (CMS/HCC) Nonrheumatic mitral (valve) insufficiency Myeloproliferative disorder (CMS/HCC) Mixed dyslipidemia Lumbosacral radiculopathy Generalized weakness Gastro-esophageal reflux disease without esophagitis Coronary artery disease involving [place] coronary artery of [place] heart without angina pectoris Chronic kidney disease, stage 4 (severe) (CMS/HCC) ACC/AHA stage C chronic systolic heart failure 75 yo gentleman HFrEF (30-35% in 10/23), recurrent ascites requiring at least biweekly paracentesis,CKD, myelofibrosis s/p splenectomy presenting following paracentesis on 05/18 showing 321 PMNs admitted for SBP whose course has been complicated by fluid overload and dental extraction #Carious erosion L mandibular first molar #Perioperative clearance - 3 weeks of left lower tooth pain, has been cutting into his lip on the inside - Evaluated outpatient previously with [facility] 04/26/25 - Dentistry consulted, appreciate recs, going for extraction on 05/25 at 1400 - Holding DVT PPX - RCRI 3 points, 10 % risk of MACE METS >4 #Chronic HFrEF #Volume overload, improving - TTE 10/23 LV dilation, LV aneurysm apical wall segment, EF 30-35% grade II moderate diastolic dysfunction, LV filling pressure elevated, inferolateral/anteroseptal/anterior/apical moody hypokinetic - F/W Dr. Barber, last seen 02/05/25 - NYHA class 3, ACC/AHA stage C - Did NOT tolerate GDMT in past - Off home diuretics for unclear reasons, such that presented with worsening swelling OA. However never requiring supplemental oxygen, no difficulty breathing, no concern for pulmonary edema Plan: - Continue PO diuresis with bumex 1 mg which is home regimen - Defer repeat TTE given known inciting agent of non-compliance with diuretics #Recurrent SBP #Recurrent ascites requiring monthly paracentesis - Para 05/18 PMN 321, GS moderate PMNs, no organisms seen - HX SBP, ?last episode 07/25 before and after which supposed to be on ciprofloxacin maintenance - Difficult medication compliance given limited assistance at home - Afebrile, HDS, reassuring abdominal exam - Do not expect will need para prior to DC based on monthly schedule Plan: - Continue cipro 500 BID D4/5 for SBP TX - Restart ciprofloxacin PPX OP to prevent recurrence - GI FU OP to ascertain lack of primary liver pathology #Inability to perform ADLs - Chart review multiple missed appointments over last 6 months, unfortunately with hospitalizationsresulting from medication non-compliance - PT/OT recommending home with 24-hour assistance - Daughter willing to take patient home with her, however this seems like a temporary situation perpatient #Chronic CKD-cr baseline CAD-statin, need ASA Myelofibrosis s/p splenectomy-heme consulted, OK with 6 month FU Medically Ready for Discharge:1-2 days * Care Plan - Sydney Omalley RN - 05/23/2025 10:04 PM EST Problem: Adult Inpatient Plan of Care Goal: Plan of Care Review Outcome: Ongoing, Progressing Flowsheets (Taken 05/23/20252202) Progress: no change Plan of Care Reviewed With: patient Goal: Patient-Specific Goal (Individualized) Outcome: Ongoing, Progressing Flowsheets (Taken 05/23/20251999) Patient/Family-Specific Goals (Include Timeframe): Patient will report edequate pain control this shift. Individualized Care Needs: Pain control Anxieties, Fears or Concerns: none Goal: Absence of Hospital-Acquired Illness or Injury Outcome: Ongoing, Progressing Intervention: Identify and Manage Fall Risk Flowsheets (Taken 05/23/20252202) Safety Promotion/Fall Prevention: activity supervised safety round/check completed Intervention: Prevent and Manage VTE (Venous Thromboembolism) Risk Flowsheets (Taken 05/23/20251999) VTE Prevention/Management: education provided Intervention: Prevent Infection Flowsheets (Taken 05/23/20252202) Infection Prevention: environmental surveillance performed equipment surfaces disinfected hand hygiene promoted personal protective equipment utilized rest/sleep promoted single patient room provided Goal: Optimal Comfort and Wellbeing Outcome: Ongoing, Progressing Intervention: Monitor Pain and Promote Comfort Flowsheets (Taken 05/23/20252202) Pain Management Interventions: pain management plan reviewed with patient/caregiver Intervention: Provide Person-Centered Care Flowsheets (Taken 05/23/20252202) Trust Relationship/Rapport: choices provided care explained emotional support provided questions answered questions encouraged reassurance provided Problem: Infection Goal: Absence of Infection Signs and Symptoms Outcome: Ongoing, Progressing Intervention: Prevent or Manage Infection Flowsheets Taken 05/23/20252202 Infection Management: aseptic technique maintained Fever Reduction/Comfort Measures: lightweight bedding lightweight clothing Taken 05/23/20251999 Isolation Precautions: precautions maintained protective Problem: Pain Acute Goal: Optimal Pain Control and Function Outcome: Ongoing, Progressing Intervention: Optimize Psychosocial Wellbeing Flowsheets (Taken 05/23/20252202) Supportive Measures: active listening utilized Diversional Activities: television Intervention: Develop Pain Management Plan Flowsheets (Taken 05/23/20252202) Pain Management Interventions: pain management plan reviewed with patient/caregiver Intervention: Prevent or Manage Pain Flowsheets (Taken 05/23/2025 2203) Sensory Stimulation Regulation: care clustered lighting decreased quiet environment promoted Sleep/Rest Enhancement: awakenings minimized consistent schedule promoted Medication Review/Management: medications reviewed Problem: Functional Deficit Goal: Improved Balance and Postural Control Outcome: Ongoing, Progressing Intervention: Optimize Balance and Safe Activity Flowsheets Taken 05/23/20252202 Safety Promotion/Fall Prevention: activity supervised safety round/check completed Self-Care Promotion: independence encouraged BADL personal objects within reach BADL personal routines maintained Taken 05/23/20251999 Activity Management: activity adjusted per tolerance Problem: Self-Care Deficit Goal: Improved Ability to Complete Activities of Daily Living Outcome: Ongoing, Progressing Intervention: Promote Activity and Functional Jerome Flowsheets (Taken 05/23/20252202) Self-Care Promotion: independence encouraged BADL personal objects within reach BADL personal routines maintained * Care Plan - Kajal Dumont RN - 05/23/2025 5:22 PM EST Problem: Adult Inpatient Plan of Care Goal: Plan of Care Review Outcome: Ongoing, Progressing Flowsheets (Taken 05/23/2025 1721) Progress: no change Outcome Evaluation: poc revioewd Plan of Care Reviewed With: patient Goal: Patient-Specific Goal (Individualized) Outcome: Ongoing, Progressing Flowsheets (Taken 05/23/2025 0800) Patient/Family-Specific Goals (Include Timeframe): pt will remain w/o injury this shift Individualized Care Needs: safety Anxieties, Fears or Concerns: POC questions Goal: Absence of Hospital-Acquired Illness or Injury Outcome: Ongoing, Progressing Intervention: Identify and Manage Fall Risk Flowsheets (Taken 05/23/2025921) Safety Promotion/Fall Prevention: safety round/check completed room organization consistent nonskid shoes/slippers when out of bed lighting adjusted fall prevention program maintained clutter-free environment maintained assistive device/personal items within reach activity supervised mobility aid in reach toileting scheduled Intervention: Prevent Skin Injury Flowsheets (Taken 05/23/2025921) Body Position: turned right Skin Protection: protective footwear used incontinence pads utilized Intervention: Prevent and Manage VTE (Venous Thromboembolism) Risk Flowsheets (Taken 05/23/2025921) VTE Prevention/Management: education provided Intervention: Prevent Infection Flowsheets (Taken 05/23/2025921) Infection Prevention: rest/sleep promoted single patient room provided Goal: Optimal Comfort and Wellbeing Outcome: Ongoing, Progressing Intervention: Monitor Pain and Promote Comfort Flowsheets (Taken 05/23/2025921) Pain Management Interventions: declines Intervention: Provide Person-Centered Care Flowsheets (Taken 05/23/2025921) Trust Relationship/Rapport: care explained choices provided emotional support provided questions answered questions encouraged empathic listening provided reassurance provided thoughts/feelings acknowledged Problem: Infection Goal: Absence of Infection Signs and Symptoms Outcome: Ongoing, Progressing Intervention: Prevent or Manage Infection Flowsheets (Taken 05/23/2025921) Infection Management: aseptic technique maintained Fever Reduction/Comfort Measures: lightweight bedding lightweight clothing Isolation Precautions: precautions maintained Problem: Pain Acute Goal: Optimal Pain Control and Function Outcome: Ongoing, Progressing Intervention: Optimize Psychosocial Wellbeing Flowsheets (Taken 05/23/2025921) Supportive Measures: active listening utilized Diversional Activities: television Spiritual Activities Assistance: affirmation provided Intervention: Develop Pain Management Plan Flowsheets (Taken 05/23/2025921) Pain Management Interventions: declines Intervention: Prevent or Manage Pain Flowsheets (Taken 05/23/2025921) Sensory Stimulation Regulation: care clustered Complementary Therapy: essential oils utilized Bowel Elimination Promotion: adequate fluid intake promoted Sleep/Rest Enhancement: awakenings minimized Medication Review/Management: medications reviewed Problem: Functional Deficit Goal: Improved Balance and Postural Control Outcome: Ongoing, Progressing Intervention: Optimize Balance and Safe Activity Flowsheets (Taken 05/23/2025921) Activity Management: activity adjusted per tolerance Safety Promotion/Fall Prevention: safety round/check completed room organization consistent nonskid shoes/slippers when out of bed lighting adjusted fall prevention program maintained clutter-free environment maintained assistive device/personal items within reach activity supervised mobility aid in reach toileting scheduled Self-Care Promotion: meal set-up provided independence encouraged Problem: Self-Care Deficit Goal: Improved Ability to Complete Activities of Daily Living Outcome: Ongoing, Progressing Intervention: Promote Activity and Functional Jerome Flowsheets (Taken 05/23/2025921) Activity Assistance Provided: assistance, 2 people Self-Care Promotion: meal set-up provided independence encouraged * Progress Notes - Mary Benavides RN - 05/23/2025 9:27 AM EST Case Management Adult Progress Note Noe Caraballo 75 y.o. male CSN: [id number] Admission: 05/20/2025 10:51 AM Primary Problem: SBP (spontaneous bacterial peritonitis) Anticipated Discharge Date: tbd Medically Ready for Discharge: Anticipated Tomorrow Additional Comments CM contacted to assist with discharge POC. Patient is needing a tooth pulled and would like that completed prior to discharge. Team is agreeable with this POC. Patient has a scheduled appointment with Dentistry on Saturday. Family will transport home however his daughter requested to be notified early to give her time to set up transportation up in a timely minor since they live some hours away.Primary CM will continue to follow. Mary Benavides RN * Progress Notes - Erika Solorzano MD - 05/23/2025 7:39 AM EST Subjective Doing okay this morning feels like the swelling has finally gone down in his legs. Eager to go homewith his daughter for Thanksgiving but they are primary caregivers of her mother so he cannot move in with her too. Not at all interested in rehab or going to a facility Objective Vitals Temp: [36.3 ??C (97.3 ??F)-36.6 ??C (97.9 ??F)] 36.6 ??C (97.9 ??F) Heart Rate: [78-88] 84 Resp: [14-23] 20 BP: (100-120)/(63-83) 120/81 Physical Exam Vitals reviewed. Constitutional: Appearance: Normal appearance. HENT: Head: Normocephalic and atraumatic. Eyes: Extraocular Movements: Extraocular movements intact. Cardiovascular: Rate and Rhythm: Normal rate and regular rhythm. Pulses: Normal pulses. Heart sounds: Normal heart sounds. Pulmonary: Effort: Pulmonary effort is normal. Breath sounds: Normal breath sounds. Abdominal: General: There is distension. Palpations: Abdomen is soft. Tenderness: There is no abdominal tenderness. There is no guarding. Musculoskeletal: General: Swelling present. Normal range of motion. Cervical back: Normal range of motion. Right lower leg: Edema present. Left lower leg: Edema present. Skin: General: Skin is warm. Neurological: General: No focal deficit present. Mental Status: He is alert and oriented to person, place, and time. Psychiatric: Mood and Affect: Mood normal. Behavior: Behavior normal. BMP Na 136 Cl 99 BUN 35 (H) Glu 130 (H) K 4.6 Co2 24 Cr 2.18 (H) Ca 8.8 (L) iCa ?? Mg ??, Phos 3.5 Lactate ?? Assessment & Plan SBP (spontaneous bacterial peritonitis) Paroxysmal atrial fibrillation (CMS/HCC) Nonrheumatic mitral (valve) insufficiency Myeloproliferative disorder (CMS/HCC) Mixed dyslipidemia Lumbosacral radiculopathy Generalized weakness Gastro-esophageal reflux disease without esophagitis Coronary artery disease involving [place] coronary artery of [place] heart without angina pectoris Chronic kidney disease, stage 4 (severe) (CMS/HCC) ACC/AHA stage C chronic systolic heart failure 75 yo gentleman HFrEF (30-35% in 10/23), recurrent ascites requiring at least biweekly paracentesis,CKD, myelofibrosis s/p splenectomy presenting following paracentesis on 05/18 showing 321 PMNs admitted for SBP #Carious erosion L mandibular first molar - 3 weeks of left lower tooth pain, has been cutting into his lip on the inside - Evaluated outpatient previously with [facility] 04/26/25 - Dentistry consulted, appreciate recs, determining scheduling with [facility] but able to remove while inpatient #HFrEF #Fluid overload - TTE 10/23 LV dilation, LV aneurysm apical wall segment, EF 30-35% grade II moderate diastolic dysfunction, LV filling pressure elevated, inferolateral/anteroseptal/anterior/apical moody hypokinetic - F/W Dr. Barber, last seen 02/05/25 - NYHA class 3, ACC/AHA stage C - Did NOT tolerate GDMT in past - Supposed to be on bumex 1 mg daily, not sure if he has been or not - Also supposed to get weekly labs given tendency towards hyperkalemia - RA without rales on pulmonary auscultation however with fluid overload evident in b/l LE, abdomen - Concerned that patient has been off home diuretics for quite some time which is how became so volume overloaded - Improving with IV diuresis with UOP 1950 and weight 205->186 pitting edema 2+->1+ Plan: - Transition IV->PO diuresis with bumex 1 mg which is home regimen - Recheck electrolytes post-diuresis - Defer repeat TTE given known inciting agent of non-compliance with diuretics #Recurrent SBP #Recurrent ascites requiring biweekly paracentesis - Para 05/18 PMN 321, GS moderate PMNs, no organisms seen - HX SBP, ?last episode 07/25 before and after which supposed to be on ciprofloxacin maintenance - Difficult medication compliance given limited assistance at home - Afebrile, HDS, reassuring abdominal exam Plan: - Continue cipro 500 BID - Restart ciprofloxacin PPX OP to prevent recurrence - GI FU OP to ascertain lack of primary liver pathology #Myelofibrosis s/p splenectomy #ITZEL - Lost to FU heme clinic, previously on momelotinib - WBC seems at baseline 54 - Fe 6, T sat 8 - LDH 706, uric acid 14.2, phos 5. Not concerning for TLS per heme - Heme consulted and no concern for TLS, ok with 6-month FU #Inability to perform ADLs - May benefit from increased assistance at home vs placement. Patient agreeable, family lives far away - PT/OT recommending home with 24-hour assistance - Daughter willing to take patient home with her, however this seems like a temporary situation perpatient #Chronic CKD-cr baseline CAD-statin, need ASA Medically Ready for Discharge:1-2 days * Care Plan - Ashley Hanson RN - 05/22/2025 10:35 PM EST Problem: Adult Inpatient Plan of Care Goal: Plan of Care Review Outcome: Ongoing, Progressing Flowsheets (Taken 05/22/20252226) Progress: no change Outcome Evaluation: Pt Agreeable to POC. Plan of Care Reviewed With: patient Goal: Patient-Specific Goal (Individualized) Outcome: Ongoing, Progressing Flowsheets (Taken 05/22/20251999) Patient/Family-Specific Goals (Include Timeframe): Pt will have pain within tolerable levels with interventions. Individualized Care Needs: Pain Control Anxieties, Fears or Concerns: Jaw Pain Goal: Absence of Hospital-Acquired Illness or Injury Outcome: Ongoing, Progressing Intervention: Identify and Manage Fall Risk Flowsheets (Taken 05/22/20252226) Safety Promotion/Fall Prevention: activity supervised assistive device/personal items within reach clutter-free environment maintained fall prevention program maintained lighting adjusted mobility aid in reach nonskid shoes/slippers when out of bed safety round/check completed Intervention: Prevent Skin Injury Flowsheets Taken 05/22/20252226 Skin Protection: incontinence pads utilized Taken 05/22/20251999 Body Position: weight shifting Intervention: Prevent and Manage VTE (Venous Thromboembolism) Risk Flowsheets (Taken 05/22/20251999) VTE Prevention/Management: medication Intervention: Prevent Infection Flowsheets (Taken 05/22/20252226) Infection Prevention: environmental surveillance performed rest/sleep promoted single patient room provided hand hygiene promoted Problem: Pain Acute Goal: Optimal Pain Control and Function Outcome: Ongoing, Progressing Intervention: Optimize Psychosocial Wellbeing Flowsheets (Taken 05/22/20252226) Supportive Measures: active listening utilized relaxation techniques promoted Diversional Activities: television Intervention: Develop Pain Management Plan Flowsheets (Taken 05/22/20252226) Pain Management Interventions: pillow support provided position adjusted quiet environment facilitated relaxation techniques promoted rest Intervention: Prevent or Manage Pain Flowsheets (Taken 05/22/20252226) Sensory Stimulation Regulation: care clustered quiet environment promoted auditory stimulation minimized Bowel Elimination Promotion: adequate fluid intake promoted Sleep/Rest Enhancement: awakenings minimized consistent schedule promoted noise level reduced regular sleep/rest pattern promoted Medication Review/Management: medications reviewed Problem: Functional Deficit Goal: Improved Balance and Postural Control Outcome: Ongoing, Progressing Intervention: Optimize Balance and Safe Activity Flowsheets (Taken 05/22/20252226) Activity Management: activity adjusted per tolerance Safety Promotion/Fall Prevention: activity supervised assistive device/personal items within reach clutter-free environment maintained fall prevention program maintained lighting adjusted mobility aid in reach nonskid shoes/slippers when out of bed safety round/check completed Self-Care Promotion: independence encouraged Problem: Self-Care Deficit Goal: Improved Ability to Complete Activities of Daily Living Outcome: Ongoing, Progressing Intervention: Promote Activity and Functional Jerome Flowsheets (Taken 05/22/20252226) Activity Assistance Provided: assistance, 1 person Self-Care Promotion: independence encouraged * Consults - Barbara Haskins DMD - 05/22/2025 3:45 PM ESTAssociated Order(s): Inpatient consult to Dentistry Images from the original note were not included. Inpatient consult to Dentistry Consult performed by: Barbara Haskins DMD Consult ordered by: Erika Solorzano MD Reason for consult: LL pain Reason For Consult Tooth pain Requesting Service: Hospital med Requested Date/Time: 05/22/2025 2:00 PM History Of Present Illness Noe Caraballo is a 75 y.o. male presenting with past medical history of myelofibrosis s/p splenectomy 03/2024, myeloproliferative disorder, ACC/AHA stage C chronic systolic heart failure, chronic HFrEF 30-35%, severe MR, Afib, chronic back pain, CKD, cirrhosis, ascites, outpatient paracentesis; had recent outpatient paracentesis performed in IR on 05/18, preliminary results with PMN 321 and recommended to come to ED. Spontaneous bacterial peritonitis. Reports 3 weeks of LL tooth pain. Prev eval in [facility] 04/26/2025 for same tooth pain. Not treated; requested cardiac consult. EXAM: Pt was seen for evaluation. Radiographic: [employer] RADIOGRAPHIC INTERPRETATION Patient: Noe Caraballo [id number] Film(s) Ordered: [employer] Date Ordered: 05/22/2025 Radiographic Indications: Dental pain Location: whole mouth RADIOGRAPHIC OBSERVATIONS: Maxillofacial Structures: R condyle not visualized; nasal area and some of maxillary sinuses obscured due to distortion Dentition: Missing: #1, 2, 6, 15, 17, 29, 30, 31, 32 #3O amalgam; #5O amalgam; #6 O amalgam; obscured area anteriors max and carey; #10 F amalgam; #11I amalgam; #12 O amalgam; #13 O amalgam; #14MO amalgam; #18O amalgam; Grossly decayed: #16; #19 Marginal Periodontium: moderate to severe horizontal bone loss max and carey Apical Periodontium: Appears WNL; heavy distortion anteriors INTERPRETATION / DIAGNOSIS: Grossly decayed: #19 Clinically: Imaging reviewed. Findings discussed with patient. Recommend EXT #19 under local anesthesia in clinic. Procedure, risks, benefits, alternatives and complications discussed. Opportunity was given for patient to ask questions. All questions answered to patient's apparent satisfaction. Pt desires EXT #19. Pt agency affirmed. Will update med team after I consult with my attending re: scheduling/necessary consults. Of note: WBC 54; ANC 29.62; ALT 21, AST 52, BUN 42, creatinine 2.29, INR 1.3 D) Medical team was updated on clinical findings and pt desires. For pts treated in our clinic, the following conditions will need to be met before tx: -Medical team will be responsible for arranging patient's escort to [facility] -Platelets >50K -Hold blood thinner -ANC >1 -Manage pre medication (prophylactic ABX ) if indicated -Manage hospital pain rx Barbara Haskins DMD ([place]) PGY-1 [facility], 2ND FLOOR ADULT GENERAL DENTISTRY [address] Cosigned by Shu Gale DMD at 05/30/2025 8:49 PM EST Associated attestation - hSu Gale DMD - 05/30/2025 8:49 PM EST I have reviewed the resident's dental note * Progress Notes - Erika Solorzano MD - 05/22/2025 2:47 PM EST Subjective Swelling seems better to him this morning but he would like to stay until he gets his tooth removed Objective Vitals Temp: [36.3 ??C (97.3 ??F)-36.6 ??C (97.9 ??F)] 36.3 ??C (97.3 ??F) Heart Rate: [78-90] 78 Resp: [12-21] 16 BP: (100-126)/(63-78) 100/63 Physical Exam Vitals reviewed. Constitutional: Appearance: Normal appearance. HENT: Head: Normocephalic and atraumatic. Eyes: Extraocular Movements: Extraocular movements intact. Cardiovascular: Rate and Rhythm: Normal rate and regular rhythm. Pulses: Normal pulses. Heart sounds: Normal heart sounds. Pulmonary: Effort: Pulmonary effort is normal. Breath sounds: Normal breath sounds. Abdominal: General: There is distension. Palpations: Abdomen is soft. Tenderness: There is no abdominal tenderness. There is no guarding. Musculoskeletal: General: Swelling (1+ pitting) present. Normal range of motion. Cervical back: Normal range of motion. Right lower leg: Edema present. Left lower leg: Edema present. Skin: General: Skin is warm. Neurological: General: No focal deficit present. Mental Status: He is alert and oriented to person, place, and time. Psychiatric: Mood and Affect: Mood normal. Behavior: Behavior normal. US Abdomen Doppler Limited Result Date: 05/21/2025 Impression: Patent imaged portal vein. CRITICAL RESULT: No. COMMUNICATION: Per this written report.Drafted by Ashlee Jha MD on 05/21/2025 4:49 PM Final report signed by Ashlee Jha MD on 05/21/2025 4:50 PM Assessment & Plan SBP (spontaneous bacterial peritonitis) Paroxysmal atrial fibrillation (CMS/HCC) Nonrheumatic mitral (valve) insufficiency Myeloproliferative disorder (CMS/HCC) Mixed dyslipidemia Lumbosacral radiculopathy Generalized weakness Gastro-esophageal reflux disease without esophagitis Coronary artery disease involving [place] coronary artery of [place] heart without angina pectoris Chronic kidney disease, stage 4 (severe) (CMS/HCC) ACC/AHA stage C chronic systolic heart failure 75 yo gentleman HFrEF (30-35% in 10/23), recurrent ascites requiring at least biweekly paracentesis,CKD, myelofibrosis s/p splenectomy presenting following paracentesis on 05/18 showing 321 PMNs admitted for SBP #Recurrent SBP #Recurrent ascites requiring biweekly paracentesis - Para 05/18 PMN 321, GS moderate PMNs, no organisms seen - HX SBP, ?last episode 07/25 before and after which supposed to be on ciprofloxacin maintenance - Difficult medication compliance given limited assistance at home - Afebrile, HDS, reassuring abdominal exam Plan: - Transition from CTX 2 grams every 24 hours to cipro 500 BID - Needs ciprofloxacin maintenance OP to prevent recurrence - GI FU OP to ascertain lack of primary liver pathology #HFrEF #Fluid overload - TTE 10/23 LV dilation, LV aneurysm apical wall segment, EF 30-35% grade II moderate diastolic dysfunction, LV filling pressure elevated, inferolateral/anteroseptal/anterior/apical moody hypokinetic - F/W Dr. Barber, last seen 02/05/25 - NYHA class 3, ACC/AHA stage C - Did NOT tolerate GDMT in past - Supposed to be on bumex 1 mg daily, not sure if he has been or not - Also supposed to get weekly labs given tendency towards hyperkalemia - RA without rales on pulmonary auscultation however with fluid overload evident in b/l LE, abdomen - Concerned that patient has been off home diuretics for quite some time which is how became so volume overloaded - Improving with IV diuresis with UOP 1950 and weight 205->186 pitting edema 2+->1+ Plan: - Continue IV diuresis with bumex 1 mg - Defer repeat TTE given known inciting agent of non-compliance with diuretics #Myelofibrosis s/p splenectomy #ITZEL - Lost to FU heme clinic, previously on momelotinib - WBC seems at baseline 54 - Fe 6, T sat 8 - LDH 706, uric acid 14.2, phos 5. Not concerning for TLS per heme - Heme consulted and no concern for TLS, ok with 6-month FU #Carious erosion L mandibular first molar - D/w dentistry, patient and family hope to have pulled while inpatient #Inability to perform ADLs - May benefit from increased assistance at home vs placement. Patient agreeable, family lives far away - PT/OT recommending home with 24-hour assistance - Daughter willing to take patient home with her #Chronic CKD-cr baseline CAD-statin, need ASA Medically Ready for Discharge:Anticipated in 2-4 Days * Care Plan - Kajal Dumont RN - 05/22/2025 12:03 PM EST Problem: Adult Inpatient Plan of Care Goal: Plan of Care Review Outcome: Ongoing, Progressing Flowsheets (Taken 05/22/2025 1200) Progress: no change Outcome Evaluation: poc reviewed Plan of Care Reviewed With: patient Goal: Patient-Specific Goal (Individualized) Outcome: Ongoing, Progressing Flowsheets (Taken 05/22/2025 0800) Patient/Family-Specific Goals (Include Timeframe): pt will remain w/o injury this shift Individualized Care Needs: safety Anxieties, Fears or Concerns: POC questions Goal: Absence of Hospital-Acquired Illness or Injury Outcome: Ongoing, Progressing Intervention: Identify and Manage Fall Risk Flowsheets (Taken 05/22/2025858) Safety Promotion/Fall Prevention: activity supervised fall prevention program maintained lighting adjusted nonskid shoes/slippers when out of bed safety round/check completed Intervention: Prevent Skin Injury Flowsheets (Taken 05/22/2025858) Body Position: weight shifting Skin Protection: protective footwear used incontinence pads utilized Intervention: Prevent and Manage VTE (Venous Thromboembolism) Risk Flowsheets (Taken 05/22/2025858) VTE Prevention/Management: education provided Intervention: Prevent Infection Flowsheets (Taken 05/22/2025858) Infection Prevention: rest/sleep promoted single patient room provided Goal: Optimal Comfort and Wellbeing Outcome: Ongoing, Progressing Intervention: Monitor Pain and Promote Comfort Flowsheets (Taken 05/22/2025958) Pain Management Interventions: declines Intervention: Provide Person-Centered Care Flowsheets (Taken 05/22/2025858) Trust Relationship/Rapport: care explained choices provided emotional support provided questions answered questions encouraged empathic listening provided reassurance provided thoughts/feelings acknowledged Problem: Pain Acute Goal: Optimal Pain Control and Function Outcome: Ongoing, Progressing Intervention: Optimize Psychosocial Wellbeing Flowsheets (Taken 05/22/2025858) Supportive Measures: active listening utilized Diversional Activities: television Spiritual Activities Assistance: affirmation provided Intervention: Develop Pain Management Plan Flowsheets (Taken 05/22/2025958) Pain Management Interventions: declines Intervention: Prevent or Manage Pain Flowsheets (Taken 05/22/2025858) Sensory Stimulation Regulation: care clustered Complementary Therapy: essential oils utilized Bowel Elimination Promotion: adequate fluid intake promoted Sleep/Rest Enhancement: awakenings minimized Medication Review/Management: medications reviewed Problem: Infection Goal: Absence of Infection Signs and Symptoms Outcome: Ongoing, Progressing Intervention: Prevent or Manage Infection Flowsheets (Taken 05/22/2025858) Infection Management: aseptic technique maintained Fever Reduction/Comfort Measures: lightweight bedding lightweight clothing Problem: Functional Deficit Goal: Improved Balance and Postural Control Outcome: Ongoing, Progressing Intervention: Optimize Balance and Safe Activity Flowsheets (Taken 05/22/2025858) Activity Management: activity adjusted per tolerance Problem: Self-Care Deficit Goal: Improved Ability to Complete Activities of Daily Living Outcome: Ongoing, Progressing Intervention: Promote Activity and Functional Jerome Flowsheets (Taken 05/22/2025 0859) Activity Assistance Provided: education provided * Care Plan - Ashley Hanson RN - 05/21/2025 11:57 PM EST Problem: Adult Inpatient Plan of Care Goal: Plan of Care Review Outcome: Ongoing, Progressing Flowsheets (Taken 05/21/20252353) Progress: no change Outcome Evaluation: Pt Agreeable to the plan of care. Plan of Care Reviewed With: patient Goal: Patient-Specific Goal (Individualized) Outcome: Ongoing, Progressing Flowsheets (Taken 05/21/20251999) Patient/Family-Specific Goals (Include Timeframe): Pt will have pain within tolerable levels with interventions. Individualized Care Needs: Pain Control Anxieties, Fears or Concerns: Pain Management Goal: Absence of Hospital-Acquired Illness or Injury Outcome: Ongoing, Progressing Intervention: Identify and Manage Fall Risk Flowsheets (Taken 05/21/20252353) Safety Promotion/Fall Prevention: activity supervised assistive device/personal items within reach clutter-free environment maintained fall prevention program maintained lighting adjusted mobility aid in reach nonskid shoes/slippers when out of bed room organization consistent safety round/check completed Intervention: Prevent Skin Injury Flowsheets Taken 05/21/20252353 Skin Protection: incontinence pads utilized Taken 05/21/20251999 Body Position: weight shifting Intervention: Prevent and Manage VTE (Venous Thromboembolism) Risk Flowsheets (Taken 05/21/20251999) VTE Prevention/Management: medication Intervention: Prevent Infection Flowsheets (Taken 05/21/20252353) Infection Prevention: environmental surveillance performed equipment surfaces disinfected hand hygiene promoted rest/sleep promoted single patient room provided Problem: Infection Goal: Absence of Infection Signs and Symptoms Outcome: Ongoing, Progressing Intervention: Prevent or Manage Infection Flowsheets (Taken 05/21/20252353) Infection Management: aseptic technique maintained Fever Reduction/Comfort Measures: lightweight bedding lightweight clothing Isolation Precautions: protective precautions maintained Problem: Pain Acute Goal: Optimal Pain Control and Function Outcome: Ongoing, Progressing Intervention: Optimize Psychosocial Wellbeing Flowsheets (Taken 05/21/2025 2354) Supportive Measures: active listening utilized decision-making supported relaxation techniques promoted self-care encouraged Diversional Activities: television Intervention: Develop Pain Management Plan Flowsheets (Taken 05/21/2025 2212) Pain Management Interventions: medication (see MAR) care clustered pillow support provided position adjusted quiet environment facilitated relaxation techniques promoted rest Problem: Functional Deficit Goal: Improved Balance and Postural Control Outcome: Ongoing, Progressing Intervention: Optimize Balance and Safe Activity Flowsheets Taken 05/21/2025 2354 Safety Promotion/Fall Prevention: activity supervised assistive device/personal items within reach clutter-free environment maintained fall prevention program maintained lighting adjusted mobility aid in reach nonskid shoes/slippers when out of bed room organization consistent safety round/check completed Self-Care Promotion: independence encouraged Taken 05/21/20251999 Activity Management: activity adjusted per tolerance Problem: Self-Care Deficit Goal: Improved Ability to Complete Activities of Daily Living Outcome: Ongoing, Progressing Intervention: Promote Activity and Functional Jerome Flowsheets (Taken 05/21/2025 2354) Activity Assistance Provided: assistance, stand-by Self-Care Promotion: independence encouraged * Progress Notes - Jacki Murphy RN - 05/21/2025 3:25 PM EST Case Management Adult Initial Progress Note Noe Caraballo 75 y.o. male CSN: [id number] Admission: 05/20/2025 10:51 AM Primary Problem: SBP (spontaneous bacterial peritonitis) Cooperer reviewed chart and spoke with patient at bedside and called daughter to complete this Initial Case Management Assessment. PCP: Debbie Medina MD - unable to confirm. Dtr does not know name of current MD. VM left at residential facility. Emergency Contact: Extended Emergency Contact Information Primary Emergency Contact: XIN CARABALLO Mobile Relation: Daughter Preferred language: [place]ian Conveyor Tender [employer] needed? No Secondary Emergency Contact: Jaclyn Cárdenas Mobile Relation: Friend Conveyor Tender [employer] needed? No Insurance: Primary Visit Coverage Payer Plan Sponsor Code Group Number Group Name MEDICARE MEDICARE PART B ONLY Primary Visit Coverage Subscriber Subscriber ID Subscriber Name Subscriber SSN Subscriber Address [id number] NOE CARABALLO [id number] [address] [place] [address] Secondary Visit Coverage Payer Plan Sponsor Code Group Number Group Name [place] [place] Secondary Visit Coverage Subscriber Subscriber ID Subscriber Name Subscriber N Subscriber Address [id number] Noe Caraballo [id number] [address] [place] [id number] Patient information: Primary Caregiver: Self Accompanied by/Relationship: none Support System: Immediate family Daily Living Activities: Functional Status: Minimum assistance (per daughter, just recently started getting a tree care foreman to help him at home) Living Arrangements: Alone Type of Residence: Private residence (apartment) [address] [place] [id number] Smoker in the Home?: No Current DME: Equipment Currently Used at Home: walker, rolling, shower chair Income Information: Income Source: Disabled Income/Expense Information: Income meets expenses Current Resources Utilized: None Housing Circumstances-Z Codes: Housing Circumstances (select all that apply): None Applicable Patient Referred to: No referrals at this time. Anticipated Discharge Date: 05/25 Patient's Discharge Goal: Home - Per daughter, she will be taking patient to her home for thanksgiving when he leaves the hospital Assistance Available at Discharge: Patient lives in residential and per daughter just recently started having a helper provided by residential. Discharge Transport: Daughter Follow Up Transport: wheels Home Health / Home Infusion / Outpatient Dialysis Services: denies - lives in residential. Living Will/Advance Directive/Power of Outcome Analyst /Guardian: Have you reviewed your Advance Directive and is it valid for this stay?: No Advance Directive: Patient does not have advance directive Information Provided on Healthcare Directives: No Pre-existing DNR/DNI Order: No Patient Requests Assistance: No Denies having, declines information. Additional Comments: Plan of Care and Discharge Plan reviewed with care team this am. Patient was admitted on 05/20 withSBP. On IV abx. Watching labs. Not medically ready for discharge. Patient has previously been lost to follow up and will need appointments set up for him. Dtr also concerned about recent decline and plans to take patient home with her and keep him through the holidays. CM will continue to follow up. Addendum: Per MD, patient now may discharge tomorrow. Daughter updated. Requested MD to notify CM office when discharged so they can notify daughter Xin. PT/OT evaluated patient - home with assist, no new DME. Jacki Murphy RN * Progress Notes - Brooklynn Darius - 05/21/2025 1:41 PM EST Physical Therapy Evaluation Patient Name: Noe Caraballo Today's Date: 05/21/2025 PT Discharge Recommendations: Home with assistance Equipment Recommended: Patient owns appropriate equipment History Noe Caraballo is 75 y.o. male admitted 05/20/2025 for work-up of SBP (spontaneous bacterial peritonitis). Problem List Active Hospital Problems Diagnosis Date Noted SBP (spontaneous bacterial peritonitis) 05/20/2025 Coronary artery disease involving [place] coronary artery of [place] heart without angina pectoris 03/18/2025 Mixed dyslipidemia ACC/AHA stage C chronic systolic heart failure Generalized weakness 01/20/2025 Nonrheumatic mitral (valve) insufficiency 01/19/2025 Chronic kidney disease, stage 4 (severe) (CMS/HCC) 01/19/2025 Paroxysmal atrial fibrillation (CMS/HCC) 03/22/2024 Gastro-esophageal reflux disease without esophagitis 03/18/2024 Lumbosacral radiculopathy 08/23/2020 Myeloproliferative disorder (CMS/HCC) 03/22/2023 Procedures Past Medical History Patient has a past medical history of ACC/AHA stage C chronic systolic heart failure, 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), Acute kidney failure, unspecified (CMS/HCC) (03/23/2024), Anemia, Ascites (03/28/2024), Atrial fibrillation (CMS/HCC) (03/22/2024), CAD (coronary artery disease), Chronic back pain, Dental caries, Dental disease, Hypertension, Idiopathic acute pancreatitis (10/01/2022), Major laceration of spleen (03/18/2024), Mixed dyslipidemia, Myeloproliferative disorder (CMS/HCC) (03/22/2023), Other cirrhosis of liver (CMS/HCC) (12/10/2022), Paroxysmal atrial fibrillation (CMS/HCC), Splenomegaly (03/18/2024), Spondylosis without myelopathy or radiculopathy, lumbar region (01/01/2024), and Spontaneous bacterial peritonitis (06/04/2024). Past Surgical History Patient has a past surgical history that includes splenectomy and Paracentesis. Precautions Left Lower Extremity Weight Bearing Status: Weight Bearing as Tolerated Right Lower Extremity Weight Bearing Status: Weight Bearing as Tolerated Left Upper Extremity Weight Bearing Status : Weight bearing as tolerated Right Upper Extremity Weight Bearing Status : Weight bearing as tolerated Medical Precautions: Fall precautions Subjective Noe Caraballo is a 75 y/o male who presents to [facility] with abdominal pain. Participants in Care Family/Caregiver Present: No Presentation Oxygen Therapy: None (Room air) Lines and Tubes: Intravenous access, Telemetry Pre-Session: Supine, Head of bed elevated, Lines intact Post-Session: Sitting in chair, RN notified, Lines intact, Chair alarm, Call light in reach Post-Session Comments: Patient positioned for comfort and left with all needs within reach Home Living/Set-up Lives With: Alone Home Type: Apartment (residential apartment) Home Adaptive Equipment: Rollator, Cane, shower chair Home Layout: One level Bathroom: Tub/Shower: Walk-in shower, Grab bars, Built-in shower seat Bathroom: Toilet: Tall Bathroom: Accessibility: Accessible Prior Level of Function Receives Help From: No assist required prior to admission Level of Mobility: Ambulatory- community Mobility Jerome: Independent gait with device History of Falls: No ADL Performance: Independent Patient/Family Goals Patient stated desire to return home Objective Pain Patient reported tooth/mouth pain but did not rate when asked, RN aware. Delirium Screening RASS: Alert and calm Confusion Assessment Method-ICU (CAM-ICU/PCAM-ICU) Feature 3: Altered Level of Consciousness: Negative Cognition Overall Cognitive Status: Within Functional Limits Arousal/Alertness: Appropriate responses to stimuli Mood/Behavior: Alert Orientation Level: Oriented X4 Single Step Commands: Consistently Multi-Step Commands: Consistently Method of Communication: Verbal Right Upper Extremity Examination RUE Assessment: Within Functional Limits Manual Muscle Testing - RUE: Within functional limits Left Upper Extremity Examination LUE ROM Assessment LUE Assessment: Within Functional Limits Manual Muscle Testing - LUE Manual Muscle Testing - LUE: Within functional limits Right Lower Extremity Examination RLE ROM Assessment RLE Assessment: Within Functional Limits Manual Muscle Testing - RLE Manual Muscle Testing - RLE: Within functional limits Left Lower Extremity Examination LLE Assessment: Within Functional Limits Manual Muscle Testing: Within functional limits Bed Mobility Bed Mobility Exam: Scooting/Bridging Level of Jerome: Stand-by assist Physical/Nonphysical Assist: Supervision Bed Mobility Exam: Supine to Sit Level of Jerome: Contact guard Physical/Nonphysical Assist: Verbal Cues Transfers Transfer Exam: Sit to stand Level of Jerome: Contact guard Physical/Nonphysical Assist: Verbal Cues Assistive Device: Walker, rolling Transfer Exam: Stand to Sit Level of Jerome: Contact guard Physical/Nonphysical Assist: Verbal Cues Assistive Device: Walker, rolling Ambulation Device: Rolling walker Assistance: Standby assist Distance : 150 ft Ambulation Comments: Patient demonstrates decreased agustin and gait speed with increased forward flexion and reliance on assistive device Therapeutic Activity ( 11 minutes) Patient participated in education regarding role of therapy services, discharge recommendations, transfers and balance activities with physical therapist after assessment. Standardized Assessments Standardized Assessments Standardized Assessments: [facility] 6-Clicks Mobility Assessment [facility] 6-Clicks Mobility Assessment Difficulty patient has turning over in bed (including adjusting bedclothes, sheets, and blankets)?:None Difficulty patient has sitting down on and standing up from a chair with arms (wheelchair, bedside commode, etc.)?: A little Difficulty patient has moving from lying on back to sitting on the side of the bed?: A little How much help does the patient need moving to and from a bed to a chair (including a wheelchair)?: A little How much help does the patient need to walk in hospital room?: A little How much help does the patient need climbing 3-5 steps with a railing?: A little [facility] 6-Clicks Mobility Assessment Total : 19 Standardized Assessments Standardized Assessments Standardized Assessments: [facility] 6-Clicks Mobility Assessment [facility] 6-Clicks Mobility Assessment Difficulty patient has turning over in bed (including adjusting bedclothes, sheets, and blankets)?:None Difficulty patient has sitting down on and standing up from a chair with arms (wheelchair, bedside commode, etc.)?: A little Difficulty patient has moving from lying on back to sitting on the side of the bed?: A little How much help does the patient need moving to and from a bed to a chair (including a wheelchair)?: A little How much help does the patient need to walk in hospital room?: A little How much help does the patient need climbing 3-5 steps with a railing?: A little [facility] 6-Clicks Mobility Assessment Total : 19 No data recorded Assessment Patient required increased cues and assist for positioning to increase efficiency of transfers and to maintain balance during transitional movements. Patient demonstrates decreased functional mobility and would benefit from continued physical therapy to address needs. Impairments: Impaired balance, Impaired functional mobility/transfers, Impaired locomotion Activity Limitations: Inability to ambulate independently, Inability to transfer independently, Inability to complete ADLs independently Participation Restrictions: Self-care, Home management, Community leisure Diagnosis: Impaired functional mobility Rehab Potential: Good, to achieve stated therapy goals Eval Complexity History Profile: 1 - 2 personal factors and/or comorbidities Clinical Presentation: Evolving clinical presentation with changing characteristics Clinical Decision Making: Moderate complexity PT Recommendations Discharge Destination: Home with assistance Discharge Equipment: Patient owns appropriate equipment Plan Planned PT Interventions Balance training, Bed mobility training, Gait training, Transfer training, Strengthening, Functional Mobility PT Frequency 2 - 5 times per week PT Duration 2 weeks Goals PT GOAL DETAILS Time Frame PT Goal 1: Patient will be independent with HEP, discharge recommendations 2 weeks PT Goal 2: Patient will transfer supine<>sit independently 2 weeks PT Goal 3: Patient will transfer sit-stand and bed<>chair independently 2 weeks PT Goal 4: Patient will ambulate 450 ft. with MOD I and AAD 2 weeks Written by Darius Overton on 05/21/25 at 1:41 PM. * Progress Notes - Nellie Farmer - 05/21/2025 10:40 AM EST Occupational Therapy Evaluation Patient Name: Noe Caraballo Today's Date: 05/21/2025 OT Discharge Recommendations: Home with assistance Equipment Recommended: Patient owns appropriate equipment History Noe Caraballo is 75 y.o. male admitted 05/20/2025 for work-up of SBP (spontaneous bacterial peritonitis). Problem List Active Hospital Problems Diagnosis Date Noted SBP (spontaneous bacterial peritonitis) 05/20/2025 Coronary artery disease involving [place] coronary artery of [place] heart without angina pectoris 03/18/2025 Mixed dyslipidemia ACC/AHA stage C chronic systolic heart failure Generalized weakness 01/20/2025 Nonrheumatic mitral (valve) insufficiency 01/19/2025 Chronic kidney disease, stage 4 (severe) ([facility]) 01/19/2025 Paroxysmal atrial fibrillation ([facility]) 03/22/2024 Gastro-esophageal reflux disease without esophagitis 03/18/2024 Lumbosacral radiculopathy 08/23/2020 Myeloproliferative disorder ([facility]/HCC) 03/22/2023 Procedures Past Medical History Patient has a past medical history of ACC/AHA stage C chronic systolic heart failure, 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), Acute kidney failure, unspecified ([facility]) (03/23/2024), Anemia, Ascites (03/28/2024), Atrial fibrillation ([facility]) (03/22/2024), CAD (coronary artery disease), Chronic back pain, Dental caries, Dental disease, Hypertension, Idiopathic acute pancreatitis (10/01/2022), Major laceration of spleen (03/18/2024), Mixed dyslipidemia, Myeloproliferative disorder ([facility]/HCC) (03/22/2023), Other cirrhosis of liver ([facility]) (12/10/2022), Paroxysmal atrial fibrillation ([facility]), Splenomegaly (03/18/2024), Spondylosis without myelopathy or radiculopathy, lumbar region (01/01/2024), and Spontaneous bacterial peritonitis (06/04/2024). Past Surgical History Patient has a past surgical history that includes splenectomy and Paracentesis. Precautions Left Lower Extremity Weight Bearing Status: Weight Bearing as Tolerated Right Lower Extremity Weight Bearing Status: Weight Bearing as Tolerated Left Upper Extremity Weight Bearing Status : Weight bearing as tolerated Right Upper Extremity Weight Bearing Status : Weight bearing as tolerated Medical Precautions: Fall precautions Subjective Agreeable to participation Participants in Care Family/Caregiver Present: No Presentation Oxygen Therapy: None (Room air) Lines and Tubes: Intravenous access, Telemetry Pre-Session: Supine, Head of bed elevated, Lines intact Post-Session: Sitting in chair, RN notified, Lines intact, Chair alarm, Call light in reach Post-Session Comments: Patient positioned for comfort and left with all needs within reach Home Living/Set-up Lives With: Alone Home Type: Apartment (residential apartment) Home Adaptive Equipment: Rollator, Cane, shower chair Home Layout: One level Bathroom: Tub/Shower: Walk-in shower, Grab bars, Built-in shower seat Bathroom: Toilet: Tall Bathroom: Accessibility: Accessible Prior Level of Function Receives Help From: No assist required prior to admission Level of Mobility: Ambulatory- community Mobility Jerome: Independent gait with device History of Falls: No ADL Performance: Independent Patient/Family Goals Statement agreeable to participation Objective Pain Reports pain in a tooth and states it needs to be pulled Delirium Screening RASS: Alert and calm Confusion Assessment Method-ICU (CAM-ICU/PCAM-ICU) Feature 3: Altered Level of Consciousness: Negative Cognition Overall Cognitive Status: Within Functional Limits Arousal/Alertness: Appropriate responses to stimuli Mood/Behavior: Alert Orientation Level: Oriented X4 Single Step Commands: Consistently Multi-Step Commands: Consistently Method of Communication: Verbal Right Upper Extremity Examination RUE ROM Assessment RUE Assessment: Within Functional Limits Manual Muscle Testing - RUE: Within functional limits Left Upper Extremity Examination LUE ROM Assessment LUE Assessment: Within Functional Limits Manual Muscle Testing - LUE: Within functional limits Right Lower Extremity Examination RLE ROM Assessment RLE Assessment: Within Functional Limits Manual Muscle Testing - RLE: Within functional limits Left Lower Extremity Examination LLE ROM Assessment LLE Assessment: Within Functional Limits Manual Muscle Testing: Within functional limits Bed Mobility Bed Mobility Exam: Scooting/Bridging Level of Jerome: Stand-by assist Physical/Nonphysical Assist: Supervision Bed Mobility Exam: Supine to Sit Level of Jerome: Contact guard Physical/Nonphysical Assist: Verbal Cues Transfers Transfer Exam: Sit to stand Level of Jerome: Contact guard Physical/Nonphysical Assist: Verbal Cues Assistive Device: Walker, rolling Transfer Exam: Stand to Sit Level of Jerome: Contact guard Physical/Nonphysical Assist: Verbal Cues Assistive Device: Walker, rolling Functional Mobility Device: Rolling walker Assistance: Standby assist Distance : 150 ft Self-Care Interventions Self Care/Home Management (ADLs) Time Entry: 10 Feeding Feeding Level of Assistance: Setup Feeding Where Assessed: Chair Level Grooming Grooming Level of Assistance: Setup, SBA Grooming Where Assessed: Edge of bed UE Dressing UE Dressing Level of Assistance: Minimum assistance UE Dressing Where Assessed: Edge of bed Lower Extremity Dressing Pants Level of Assistance: Minimum assistance Sock Level of Assistance: Minimum assistance LE Dressing Where Assessed: Edge of bed Toileting Toileting Interventions: pt displays physical ability to ambulate to and from toilet or transfer toBSC for toileting needs Standardized Assessments [facility] 6-Click Daily Activities Help from Other: Don/Doff Regular Lower Body Clothings: Little Help From Other: Bathing: Little Help From Other: Toileting: A lot Help From Other: Don/Doff Upper Body Clothings: Little Help From Other: Grooming: None Help From Other: Eating Meals: None [facility] 6 Click - Daily Activities Score: 19 Assessment Patient would benefit from cont'd skilled OT while in acute setting for safety, strength, balance, endurance and activity tolerance training in prep for ADL/IADL tasks as pt appears to be most limited by generalized weakness and fatigue. Patient is agreeable to OT POC and discharge recommendations- pending functional progress while in acute setting. OT Findings: Impaired ADL performance, Impaired IADL performance, Decreased endurance/ventilation/gas exchange, Impaired functional mobility Evaluation/Treatment Tolerance: Patient limited by fatigue Rehab Potential: Good, to achieve stated therapy goals Eval Complexity Occupational Profile: Brief history including review of medical/therapy records relating to presenting problem Performance Deficits: Activities of daily living (ADLs), Instrumental activities of daily living (IADLs), Habits, Routines, Body functions Clinical Decision Making: Low Overall Eval complexity: Low OT Recommendations Discharge Destination: Home with assistance Discharge Equipment: Patient owns appropriate equipment Plan Planned OT Interventions ADL retraining, Balance training, Bed mobility Training, Joint mobilization, Strengthening OT Frequency 2 - 5 times per week OT Duration 2 weeks Goals OT GOAL DETAILS Time Frame OT Goal 1: Pt will be Mod I for functional ambulation to and from bathroom 2 weeks OT Goal 2: Pt will be independent with toileting (managing clothes and hygiene) 2 weeks OT Goal 3: Pt will be independent with all LB dressing, starting in seated position for safety 2 weeks Written by Nellie Farmer on 05/21/25 at 2:04 PM. 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 Mr. Caraballo has CKD complicated by hyperphosphatemia and hyperuricemia. He does not have tumor lysis syndrome. It should be noted that myeloproliferative neoplasms do not undergo tumor lysis, particularly off of any treatment. He also asks us to comment on the safety of undergoing dental extractions. Mr. Caraballo can undergo dental extractions without any contraindications from a hematologic standpoint. He does not require antimicrobial prophylaxis prior to undergoing any dental work. It also appears that his ascites may be relatively acute (last paracentesis in our system in September). Consider US doppler liver to evaluate for PVT, which is common in patients with myeloproliferativeneoplasms. Thank you for the consult. Hematology will sign off. Mr. Caraballo will continue his regular q6 monthfollow up in the hematology clinic, which happens to be scheduled on 06/09. Patient was seen and examined with attending physician, Dr. Alcantara, who assisted with formulation of the plan as described. History of Present Illness The patient presents with asymptomatic neutrophilic ascites noted after his regularly scheduled paracentesis/labs in IR yesterday. With regards to hemoatologic history: - on ruxolitinib 01/2023, platelets fell and spleen enlarged - also on pacritinib, momelotinib suffered a splenic rupture c/b hemorrhagic shock and is s/p splenectomy in 03/2024. Today, he complains of severe dental pain cutting into his gum and tongue. He also notes swelling in his legs and abdomen. Review of Systems Review of Systems All other systems reviewed and are negative. Past Medical History Reviewed and updated personally in [facility]. Relevant history: - CKD - HFrEF - ? cardiac ascites Past Surgical History Reviewed by me; any relevant updates made in [facility]. Family History Reviewed by me; any relevant updates made in [facility]. Social History Reviewed by me; any relevant updates made in [facility]. Allergies Reviewed by me; any relevant updates made in [facility]. Medications Current Medications[1] Physical Exam Vitals: 05/21/25 0851 BP: 118/74 Pulse: 75 Resp: Temp: 36.4 ??C (97.5 ??F) SpO2: Gen: chronically ill appearing, sallow man sitting up in chair fatigued but no distress. HEENT: Sclera non-icteric. MMM. Dentition are fair. Neck: supple CV: Warm and well-perfused. There is bilateral peripheral edema. Pulm: Normal work of breathing on RA Abd: Distended, adjusts in chair without abdominal discomfort Musc: No joint swelling or erythema. No contractures or joint deformities. Skin: No petechiae or bruising. Bilateral feet are purple and mottled. Neuro: Alert and appropriately conversant. There are no gross neurologic deficits. Psych: Mood and affect appropriate for setting Labs, Imaging, and Microbiology Reviewed personally in [facility]. [1] Current Facility-Administered Medications: acetaminophen (Tylenol) tablet 500 mg, 500 mg, Oral, q8h PRN, Susanne Duke MD, 500 mg at 05/21/25 0436 cefTRIAXone (Rocephin) 2 g in sodium chloride 0.9% 100 mL IVPB (vial adapter required), 2 g, Intravenous, q24h, Susanne Duke MD, Last Rate: 220 mL/hr at 05/21/25 0900, 2 g at 05/21/25 0900 ferrous sulfate EC tablet 324 mg, 324 mg, Oral, Every other day, Susanne Duke MD, 324 mg at 05/21/25 0902 heparin (porcine) injection 5,000 Units, 5,000 Units, Subcutaneous, q8h YANIQUE, Susanne Duke MD, 5,000 Units at 05/21/25 0436 HYDROcodone-acetaminophen (Hycet) 7.5-325 MG/15ML solution 5 mg of hydrocodone, 5 mg of hydrocodone, Oral, q8h PRN, Susanne Duke MD, 5 mg of hydrocodone at 05/21/255 ondansetron ODT (Zofran-ODT) disintegrating tablet 4 mg, 4 mg, Oral, q6h PRN OR ondansetron (Zofran) injection 4 mg, 4 mg, Intravenous, q6h PRN OR ondansetron (Zofran) 4 MG/5ML solution 4 mg,4 mg, Oral, q6h PRN, Susanne Duke MD rosuvastatin (Crestor) tablet 10 mg, 10 mg, Oral, Nightly, Susanne Duke MD, 10 mg at 05/20/252052 senna (Senokot) tablet 8.6 mg, 8.6 mg, Oral, Nightly, Susanne Duke MD, 8.6 mg at 05/20/252052 [COMPLETED] Insert peripheral IV, , , Once AND [COMPLETED] Saline lock IV, , , Once AND sodium chloride 0.9 % flush 10 mL, 10 mL, Intravenous, q12h, 10 mL at 05/21/25 0457 AND sodium chloride 0.9 % flush 10 mL, 10 mL, Intravenous, PRN, Susanne Duke MD Cosigned by Hetal Alcantara MD at 05/23/2025 1:31 PM EST Associated attestation - Hetal Alcantara MD - 05/23/2025 1:31 PM EST I saw and evaluated the patient with the resident/fellow. I discussed the case with the resident/fellow and agree with the findings and plan as documented. * Progress Notes - Erika Solorzano MD - 05/21/2025 8:04 AM EST Subjective Worried he is still more swollen than normal. Only having a little bit of trouble breathing sometimes. Called and told he had an infection on his belly but has not had any stomach pain, fevers, or chills. Lives at home alone and not always able to make it to his appointments Objective Vitals Temp: [36.3 ??C (97.3 ??F)-36.6 ??C (97.8 ??F)] 36.4 ??C (97.5 ??F) Heart Rate: [72-85] 79 Resp: [12-119] 12 BP: (98-115)/(66-92) 111/74 Physical Exam Vitals reviewed. Constitutional: Appearance: Normal appearance. HENT: Head: Normocephalic and atraumatic. Eyes: Extraocular Movements: Extraocular movements intact. Cardiovascular: Rate and Rhythm: Normal rate and regular rhythm. Pulses: Normal pulses. Heart sounds: Normal heart sounds. Pulmonary: Effort: Pulmonary effort is normal. Breath sounds: Normal breath sounds. Abdominal: General: There is distension. Palpations: Abdomen is soft. Tenderness: There is no abdominal tenderness. There is no guarding. Musculoskeletal: General: Swelling (2+ pitting) present. Normal range of motion. Cervical back: Normal range of motion. Right lower leg: Edema present. Left lower leg: Edema present. Skin: General: Skin is warm. Neurological: General: No focal deficit present. Mental Status: He is alert and oriented to person, place, and time. Psychiatric: Mood and Affect: Mood normal. Behavior: Behavior normal. Labs in last 18 hours CBC WBC 54.86 (H) Hb 14.2 Plt 158 Hct 47.7 ANC 29.62 (H) INR 1.3 (H), PTT ??, Anti-Xa ?? BMP Na 138 Cl 101 BUN 42 (H) Glu 77 K 4.8 Co2 22 Cr 2.29 (H) Ca 8.4 (L) iCa ?? Mg 2.3, Phos 5.0 (H) Lactate ?? LFT AST 52 (H) AlkPhos 324 (H) T Prot 6.3 ALK 21 Bili 1.2 (H) Alb ?? D.Bili ?? XR Panorex Result Date: 05/21/2025 Impression: Limited examination due to artifacts. Within the limitations, there is no definite evidence of a periapical abscess. Significant carious erosion of the left mandibular first molar. CRITICAL RESULT: No. COMMUNICATION: Per this written report. Drafted by Maria D Colby MD on 05/21/2025 8:00 AM Final report signed by Maria D Colby MD on 05/21/2025 8:02 AM US Liver Screen Result Date: 05/20/2025 Impression: Mild coarsened hepatic echotexture suggestive of some degree of underlying chronic parenchymal disease. Cholelithiasis. Ascites. CRITICAL RESULT: No. COMMUNICATION: Per this written report. Drafted by Ashlee Jha MD on 05/20/2025 8:15 PM Final report signed by Ashlee Jha MD on 05/20/2025 8:17 PM XR Chest 1 View Result Date: 05/20/2025 Impression: Mild bilateral interstitial opacities could represent vascular congestion or inflammation/infection. CRITICAL RESULT: No COMMUNICATION: Per this written report. Drafted by Ashlee Jha MD on 05/20/2025 4:59 PM Final report signed by Ashlee Jha MD on 05/20/2025 5:04 PM Assessment & Plan SBP (spontaneous bacterial peritonitis) Paroxysmal atrial fibrillation (CMS/HCC) Nonrheumatic mitral (valve) insufficiency Myeloproliferative disorder (CMS/HCC) Mixed dyslipidemia Lumbosacral radiculopathy Generalized weakness Gastro-esophageal reflux disease without esophagitis Coronary artery disease involving [place] coronary artery of [place] heart without angina pectoris Chronic kidney disease, stage 4 (severe) (CMS/HCC) ACC/AHA stage C chronic systolic heart failure 75 yo gentleman HFrEF (30-35% in 10/23), recurrent ascites requiring at least biweekly paracentesis,CKD, myelofibrosis s/p splenectomy presenting following paracentesis on 05/18 showing 321 PMNs admitted for SBP #Recurrent SBP #Recurrent ascites requiring biweekly paracentesis - Para 05/18 PMN 321, GS moderate PMNs, no organisms seen - HX SBP, ?last episode 07/25 before and after which supposed to be on ciprofloxacin maintenance - Difficult medication compliance given limited assistance at home - Etiology thought to be related to HFrEF rather than primary liver pathology though most recent RUQ US obtained this admission does show parenchymal changes consistent with primary disease ?cardiac cirrhosis? Vs previous documentation suggesting 'decompensated cirrhosis' however unlikely without hyponatremia, thrombocytopenia, coagulopathy likely from liver function issues that could be cardiac in origin - Afebrile, HDS, reassuring abdominal exam Plan: - Continue CTX 2 grams every 24 hours - Needs ciprofloxacin maintenance OP to prevent recurrence #HFrEF #Fluid overload - TTE 10/23 LV dilation, LV aneurysm apical wall segment, EF 30-35% grade II moderate diastolic dysfunction, LV filling pressure elevated, inferolateral/anteroseptal/anterior/apical moody hypokinetic - F/W Dr. Barber, last seen 02/05/25 - NYHA class 3, ACC/AHA stage C - Did NOT tolerate GDMT in past - Supposed to be on bumex 1 mg daily, not sure if he has been or not - Also supposed to get weekly labs given tendency towards hyperkalemia - RA without rales on pulmonary auscultation however with fluid overload evident in b/l LE, abdomen - Concerned that patient has been off home diuretics for quite some time Plan: - Continue IV diuresis with bumex 1 mg - If does not improve with resumption of diuresis, will consider further consultation I.e. cardiology vs GI. Distribution of edema suggestive of RH and his RH was fine on TTE so may be from portal HTN from alternative etiology I.e. liver despite reports of cardiac cause in past - Defer repeat TTE given known inciting agent of non-compliance with diuretics #Myelofibrosis s/p splenectomy #ITZEL - Lost to FU heme clinic, previously on momelotinib - WBC seems at baseline 54 - Fe 6, T sat 8 - LDH 706, uric acid 14.2, phos 5. Not concerning for TLS per heme - Heme consult #Dentalgia - Panorex pending - Explained that dentistry unfortunately does not usually evaluate inpatient but will arrange for outpatient FU #Inability to perform ADLs - May benefit from increased assistance at home vs placement. Patient agreeable, family lives far away - PT/OT consults pending #Chronic CKD-cr baseline CAD-statin, need ASA Medically Ready for Discharge:Anticipated in 2-4 Days * Care Plan - Subha Iverson RN - 05/21/2025 2:32 AM EST Problem: Adult Inpatient Plan of Care Goal: Plan of Care Review 05/21/2025225 by Subha Iverson RN Outcome: Ongoing, Progressing Flowsheets (Taken 05/21/2025225) Progress: no change Outcome Evaluation: pt agreeable to plan of care Plan of Care Reviewed With: patient 05/21/2025225 by Subha Iverson RN Outcome: Ongoing, Progressing Goal: Patient-Specific Goal (Individualized) 05/21/2025225 by Subha Iverson RN Outcome: Ongoing, Progressing Flowsheets (Taken 05/21/2025 0000) Patient/Family-Specific Goals (Include Timeframe): pt will verbalize that pain is tolerable while in hospital Individualized Care Needs: medication Anxieties, Fears or Concerns: jaw pain 05/21/2025225 by Subha Iverson RN Outcome: Ongoing, Progressing Goal: Absence of Hospital-Acquired Illness or Injury 05/21/2025225 by Subha Iverson RN Outcome: Ongoing, Progressing 05/21/2025225 by Subha Iverson RN Outcome: Ongoing, Progressing Intervention: Identify and Manage Fall Risk Flowsheets (Taken 05/21/2025225) Safety Promotion/Fall Prevention: activity supervised assistive device/personal items within reach lighting adjusted room organization consistent Intervention: Prevent Skin Injury Flowsheets (Taken 05/21/2025225) Body Position: neutral body alignment neutral head position Skin Protection: incontinence pads utilized Intervention: Prevent and Manage VTE (Venous Thromboembolism) Risk Flowsheets (Taken 05/21/2025225) VTE Prevention/Management: bilateral SCDs (sequential compression devices) off Intervention: Prevent Infection Flowsheets (Taken 05/21/2025225) Infection Prevention: environmental surveillance performed rest/sleep promoted Goal: Optimal Comfort and Wellbeing 05/21/2025225 by Subha Iverson RN Outcome: Ongoing, Progressing 05/21/2025225 by Subha Iverson RN Outcome: Ongoing, Progressing Intervention: Monitor Pain and Promote Comfort Flowsheets (Taken 05/21/2025225) Pain Management Interventions: relaxation techniques promoted pillow support provided position adjusted emotional support Intervention: Provide Person-Centered Care Flowsheets (Taken 05/21/2025225) Trust Relationship/Rapport: care explained choices provided emotional support provided Problem: Infection Goal: Absence of Infection Signs and Symptoms Outcome: Ongoing, Progressing Intervention: Prevent or Manage Infection Flowsheets (Taken 05/21/2025225) Infection Management: aseptic technique maintained Fever Reduction/Comfort Measures: lightweight clothing lightweight bedding Isolation Precautions: precautions maintained protective Problem: Pain Acute Goal: Optimal Pain Control and Function Outcome: Ongoing, Progressing Intervention: Optimize Psychosocial Wellbeing Flowsheets (Taken 05/21/2025225) Supportive Measures: active listening utilized relaxation techniques promoted self-care encouraged self-reflection promoted Diversional Activities: television smartphone Spiritual Activities Assistance: personal rituals encouraged Intervention: Develop Pain Management Plan Flowsheets (Taken 05/21/2025225) Pain Management Interventions: relaxation techniques promoted pillow support provided position adjusted emotional support Intervention: Prevent or Manage Pain Flowsheets (Taken 05/21/2025225) Sensory Stimulation Regulation: care clustered lighting decreased quiet environment promoted visual stimulation minimized Bowel Elimination Promotion: adequate fluid intake promoted Sleep/Rest Enhancement: awakenings minimized consistent schedule promoted noise level reduced relaxation techniques promoted Medication Review/Management: medications reviewed * ED Notes - Martha Rodriguez RN - 05/20/2025 7:20 PM EST Transport to [place] * H&P - Susanne Duke MD - 05/20/2025 3:47 PM ESTAssociated Order(s): Consult to [facility] Images from the original note were not included. Consult to [facility] Consult performed by: Susanne Duke MD Consult ordered by: Susanne Duke MD Reason for consult: SBP Subjective Chief complaint SBP on recent para History Of Present Illness Noe Caraballo is a 75 y.o. 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 Hospital Medicine consulted for admission as [facility] Patient seen and examined at the bedside this afternoon, he reported ongoing abdominal pain lower generalized x 1 week, shooting pain constant. He denied fever chills nausea vomiting diarrhea or constipation, last BM yesterday. He notes worsening leg swelling over the last few days. He reports ongoing left sided tooth pain x 3 weeks which is severe, was due to get outpatient extraction with Dentistry . He reports at baseline lives alone, daughter is next of contact and he ambulated with walker at baseline, some weakness recently. In ED, labs with WCC 57.28 (48-67 prior), differential pending, Cr near baseline at 2.18, alk phos similar to baseline 309 and mildly elevated bilirubin 1.6. Blood cultures were obtained on admission, he was given ceftriaxone 2g IV. Medical/Surgical/Social/Family History I have reviewed and updated the patient history. Travel History Relevant International Travel History: Travel Screening Question Response Have you been in contact with someone who was sick? No / Unsure Do you have any of the following new or worsening symptoms? Abdominal pain Have you traveled internationally or domestically in the last month? No Travel History Travel since 04/19/25 No documented travel since 04/19/25 Allergies Patient has no known allergies. Outpatient medications in system Home Medications[1] Medications ordered for hospitalization Current Scheduled Medications[2] Current Continuous Medications[3] Current PRN Medications[4] Objective Review of Systems Constitutional: Negative for appetite change, chills, fatigue, fever and unexpected weight change. HENT: Positive for dental problem. Negative for sore throat and trouble swallowing. Eyes: Negative for visual disturbance. Respiratory: Negative for cough, chest tightness, shortness of breath and wheezing. Cardiovascular: Positive for leg swelling. Negative for chest pain and palpitations. Gastrointestinal: Positive for abdominal distention and abdominal pain. Negative for blood in stool, constipation, diarrhea, nausea and vomiting. Genitourinary: Negative for difficulty urinating and dysuria. Neurological: Positive for weakness. Negative for headaches. Physical Exam Constitutional: Appearance: He is ill-appearing. HENT: Head: Normocephalic and atraumatic. Mouth/Throat: Pharynx: Oropharynx is clear. Eyes: Conjunctiva/sclera: Conjunctivae normal. Pupils: Pupils are equal, round, and reactive to light. Cardiovascular: Rate and Rhythm: Regular rhythm. Tachycardia present. Heart sounds: Murmur heard. Pulmonary: Breath sounds: Normal breath sounds. No wheezing or rales. Abdominal: General: There is distension. Palpations: Abdomen is soft. Tenderness: There is no abdominal tenderness. There is no guarding. Musculoskeletal: Right lower leg: Edema (2+ edema up to knees BL LE) present. Left lower leg: Edema present. Skin: General: Skin is dry. Capillary Refill: Capillary refill takes less than 2 seconds. Neurological: Mental Status: He is alert and oriented to person, place, and time. Psychiatric: Mood and Affect: Mood normal. Last Recorded Vitals Blood pressure 105/66, pulse 72, temperature 36.4 ??C (97.5 ??F), temperature source Oral, resp. rate (!) 119, height 1.702 m (5' 7 ), weight 94.2 kg (207 lb 10.8 oz), SpO2 95%. Results Review I have reviewed the latest lab and imaging results.Labs in last 18 hours CBC WBC 57.28 (H) Hb 12.7 (L) Plt 156 Hct 42.4 ANC ?? INR ??, PTT ??, Anti-Xa ?? BMP Na 136 Cl 102 BUN 46 (H) Glu 98 K 4.5 Co2 23 Cr 2.18 (H) Ca 8.3 (L) iCa ?? Mg ??, Phos ?? Lactate ?? LFT AST 47 AlkPhos 309 (H) T Prot 6.3 ALK 19 Bili 1.6 (H) Alb ?? D.Bili ?? Assessment & Plan SBP (spontaneous bacterial peritonitis) Paroxysmal atrial fibrillation (CMS/HCC) Nonrheumatic mitral (valve) insufficiency Myeloproliferative disorder (CMS/HCC) Mixed dyslipidemia Lumbosacral radiculopathy Generalized weakness Gastro-esophageal reflux disease without esophagitis Coronary artery disease involving [place] coronary artery of [place] heart without angina pectoris Chronic kidney disease, stage 4 (severe) (CMS/HCC) ACC/AHA stage C chronic systolic heart failure Noe Caraballo is a 75 y.o. male with past medical history of myelofibrosis s/p splenectomy 03/2024, chronic HFrEF 30-35%,severe MR, Afib not on AC, chronic back pain, CKD, ascites had recent outpatient paracentesis performed in IR on 05/18, positive for SBP and admitted to . SBP Cholestatic liver pattern Ascites: gets outpatient paracentesis for cardiac ascites (per previous documentation, no evidence of cirrhosis on imaging, previously seen by GI). Has Hx of SBP but was not on prophylaxis. Recent outpatient paracentesis 05/18: positive for PMN 321, 2L removed per patient Mildly elevated bilirubin and alk phos on admission - Blood cultures obtained on admission, other infectious w/u pending - Started on ceftriaxone, continue - No cultures sent with recent para, discussed with lab and able to add on body fluid culture - Check GGT, liver US screen to assess for cirrhosis Concern for acute decompensated HFrEF Moderate to Severe MR Hypervolemic on exam on admission, patient was not sure if he was taking his bumex at home. 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 Seen by [facility], patient declined re-evaluation by bone marrow at that time. WCC 57 on admission, differential pending - Check TLS labs, check CBC w diff in am - Check iron studies and ferritin, continue home oral supplementation Hx Afib: not on home BB or AC CKD 4: Cr baseline around 2 Hyperlipidemia: continue home statin Chronic low back pain: continue home norco prn GERD: continue PPI Venous thromboembolism prophylaxis Patient on heparin (porcine) Diet Dietary Orders (From admission, onward) Start Ordered 05/20/25 1522 Adult diet Diet texture: Regular; Sodium restriction: 2,000 mg Na Diet effective now References: IDDSI Diet Texture Guide Question Answer Comment Diet texture Regular Sodium restriction: 2,000 mg Na 05/20/25 1522 Code Status Full Code [1] (Not in a hospital admission) [2] bumetanide, 1 mg, Oral, Daily [START ON 05/21/2025] cefTRIAXone, 2 g, Intravenous, q24h [START ON 05/21/2025] ferrous sulfate, 324 mg, Oral, Every other day [START ON 05/21/2025] heparin (porcine), 5,000 Units, Subcutaneous, q8h YANIQUE rosuvastatin, 10 mg, Oral, Nightly senna, 8.6 mg, Oral, Nightly sodium chloride, 10 mL, Intravenous, q12h [3] [4] PRN medications: acetaminophen, ondansetron ODT OR ondansetron OR ondansetron, Insert peripheral IV AND Saline lock IV AND sodium chloride AND sodium chloride * Progress Notes - Dannielle Shipman RN - 05/20/2025 1:02 PM EST Geriatric Alert Note Pt to ED from home/care home facility [facility]. Per report pt has had abd pain for several weeks and was told that he has some type of infection in his stomach. Pt also endorses dental pain. Pt states he lives by himself and is self sufficient, uses a walker at times, still able to drive. He has a GF, daughter and grandson that can assist if needed. Geriatric Triage Risk Screening Tool (TRST) Cognitive impairment: No Five or more medications: Yes Difficulty walking/ transferring, or recent falls: Yes ED use in the last 30 days or hospitalization in previous 90 days: No Lives alone and/ or no caregiver: No ED staff concerns: No TRST Assessment Total: 2 Pt scored 2 on TRST questionnaire. Discussed fall safety measures for the home such as removing throw rugs, padding corners of moody/furniture, grab bars, etc. CM reviewed current DME used at home orif there is a need for DME to assist with mobility and safety. Discussed importance of regular PCP care and if they have an upcoming appts with PCP, access to prescription concerns, in-home care and medical transportation. Spoke with patient about food security/insecurity. Pt verbalized understanding. No other CM needs verbalized at this time. * ED Provider Notes - Gerson Galaviz MD - 05/20/2025 10:51 AM EST - HPI Chief Complaint Patient presents with Multiple Complaints HPI Patient is a 75-year-old male with a past medical history of pancreatitis, AFib and decompensated cirrhosis who presents for evaluation of an abnormal lab. Patient was seen yesterday and had a paracentesis completed with IR. Patient was called and notified that he may have an intra-abdominal infection. Patient was told to come to the ED for further evaluation. Patient has been experiencing chills. He also has abdominal pain. Patient states that his abdominal pain has not changed since his paracentesis yesterday. He denies any vomiting. He has no additional acute complaints or concerns. Patient History Past Medical History[1] Surgical History[2] Family History[3] Social History[4] Allergies: Allergies[5] Physical Exam ED Triage Vitals [05/20/25 1105] Temp Heart Rate Resp BP 36.6 ??C (97.8 ??F) 85 22 98/66 SpO2 Temp Source Heart Rate Source Patient Position 93 % Oral Monitor Sitting BP Location FiO2 (%) Right arm -- Physical Exam Constitutional: Appearance: Normal appearance. HENT: Head: Normocephalic and atraumatic. Right Ear: External ear normal. Left Ear: External ear normal. Nose: Nose normal. Mouth/Throat: Mouth: Mucous membranes are moist. Eyes: Extraocular Movements: Extraocular movements intact. Pupils: Pupils are equal, round, and reactive to light. Cardiovascular: Rate and Rhythm: Normal rate and regular rhythm. Pulses: Normal pulses. Heart sounds: Normal heart sounds. Pulmonary: Effort: Pulmonary effort is normal. Breath sounds: Normal breath sounds. Abdominal: General: Abdomen is flat. There is no distension. Palpations: Abdomen is soft. Tenderness: There is abdominal tenderness. Musculoskeletal: General: No swelling or tenderness. Normal range of motion. Cervical back: Normal range of motion. Skin: General: Skin is warm. Capillary Refill: Capillary refill takes less than 2 seconds. Neurological: General: No focal deficit present. Mental Status: He is alert and oriented to person, place, and time. Psychiatric: Mood and Affect: Mood normal. Bridgman Coma Scale Score: 15 TRST Assessment Total: 2 ED Course & MDM - Assessment: 75 y.o. male presents to ED with complaint of an abnormal lab. It should be noted that the chronic conditions includes decompensated cirrhosis and AFib, which currently is not at goal therapy. This complicates the clinical picture because it Comorbidities: may be exacerbating symptoms, increases the amount and complexity of data to be reviewed, and complicates the clinical workup Differential Diagnosis: Spontaneous bacterial peritonitis, portal hypertensive colopathy, decompensated cirrhosis In order to fully explore the differential diagnosis the following treatments and tests were ordered: All Other Orders Ordered Status Ordering Provider 05/20/25 1306 CMP STAT Ordered NURIA, GERSON H 05/20/25 1306 CBC w/diff STAT Ordered NURIA, GERSON H 05/20/25 1306 Blood Culture (Aerobic/Anaerobet Set) STAT Ordered NURIA, GERSON H 05/20/25 1306 Blood Culture (Aerobic/Anaerobet Set) STAT Ordered NURIA, GERSON H 05/20/25 1101 ECG Adult Once Preliminary result GARRET BAI Clinical Impressions as of 05/20/25 1452 SBP (spontaneous bacterial peritonitis) Social Determinates of Health Risks (including Economic Stability, Education and level of understanding, Healthcare access and quality and concerning social factors): Social factors impacting patient's psychosocial well-being Patient arrived hemodynamically stable and in no acute distress, patient was not jaundice on physical exam, there was no icterus. Patient had mild pain with palpation of the lower abdomen. Patient's paracentesis labs from yesterday were reviewed, they were remarkable for an ANC greater than 250. This is consistent with a diagnosis of spontaneous bacterial peritonitis. Patient was started on ceftriaxone. Repeat blood work including blood cultures were ordered. We did not have to wait for lab results to have patient admitted. I then reached out to Hospital Medicine and, after discussion, they accepted the patient to their service. Patient required no further resuscitation in the ED. Ultimately, this patient was Was admitted (Admission) The encounter diagnosis was SBP (spontaneous bacterial peritonitis).. Patient believed to require admission for the listed diagnoses. The Internal Medicine service was consulted for admission and was agreeable to admit to Acute Floor (Med/Surg). ED Prescriptions None - [1] Past Medical History: Diagnosis Date ACC/AHA [...] Date PARACENTESIS biweekly via IR SPLENECTOMY [3] Family History Problem Relation Name Age of Onset No Known Problems Mother No Known Problems Father No Known Problems Daughter [4] Tobacco Use Smoking status: Never Passive exposure: Never Smokeless tobacco: Never Vaping Use Vaping status: Never Used Substance Use Topics Alcohol use: Never Drug use: Never [5] No Known Allergies Gerson Galaviz MD Resident 05/20/25 4485 Cosigned by Garret Bai MD at 05/22/2025 9:18 AM EST Associated attestation - Garret Bai MD - 05/22/2025 9:18 AM EST I saw and evaluated the patient with the resident/fellow. I discussed the case with the resident/fellow and agree with the findings and plan as documented. * ED Triage Notes - Ligia Jorgensen RN - 05/20/2025 10:51 AM EST Pt to ED via [facility] [employer] [facility] from home/care home facility. Per report pt has had abd pain for several weeks and was told that he has some type of infection in his stomach. Pt also endorses dental pain. GCS 15 on arrival. documented in this encounter Plan of Treatment Upcoming Encounters Date Type Department Care Team ([facility] st Contact Info) Description 07/05/2025 3:00 PM EST Clinical Support [facility] Hematology/BMT and Cellular Therapy Program [address] [place] [phone] 07/05/2025 3:30 PM EST Office Visit [facility] Hematology/BMT and Cellular Therapy Program [address] [place] [phone] Vaishnavi Almaraz MD [address] [facility] [address] [place] [phone] 09/13/2025 10:30 AM EDT Clinical Support [facility] Hematology/BMT and Cellular Therapy Program [address] [place] [phone] 09/13/2025 11:00 AM EDT Office Visit [facility] Hematology/BMT and Cellular Therapy Program [address] [place] [phone] Vaishnavi Almaraz MD [address] [facility] [address] [phone] documented as of this encounter Procedures Procedure Name Priority Date/Time Associated Diagnosis Comments POCT GLUCOSE METER UNSOLICITED RESULTS Routine 05/28/2025 10:23 AM EST POCT GLUCOSE METER UNSOLICITED RESULTS Routine 05/28/2025 7:56 AM EST MORPHOLOGY Routine 05/28/2025 4:20 AM EST MANUAL DIFFERENTIAL Routine 05/28/2025 4 :20 AM EST PROCALCITONIN, PLASMA Routine 05/28/2025 4:20 AM EST SEDIMENTATION RATE, AUTOMATED Routine 05/28/2025 4:20 AM EST CBC WITH AUTO DIFFERENTIAL Routine 05/28/2025 4:20 AM EST C-REACTIVE PROTEIN, PLASMA Routine 05/28/2025 4:20 AM EST URIC ACID, PLASMA Routine 05/28/2025 4:2 0 AM EST PHOSPHORUS, PLASMA Routine 05/28/2025 4: 20 AM EST MAGNESIUM, PLASMA Routine 05/28/2025 4:2 0 AM EST LACTATE DEHYDROGENASE, PLASMA Routine 05/28/2025 4:20 AM EST HEPATIC FUNCTION PANEL Routine 05/28/2025 4:20 AM EST BASIC METABOLIC PANEL, PLASMA Routine 05/28/2025 4:20 AM EST PROCALCITONIN, PLASMA Routine 05/27/2025 2:45 AM EST SEDIMENTATION RATE, AUTOMATED Routine 05/27/2025 2:45 AM EST CBC WITH AUTO DIFFERENTIAL Routine 05/27/2025 2:45 AM EST C-REACTIVE PROTEIN, PLASMA Routine 05/27/2025 2:45 AM EST URIC ACID, PLASMA Routine 05/27/2025 2:4 5 AM EST PHOSPHORUS, PLASMA Routine 05/27/2025 2: 45 AM EST MAGNESIUM, PLASMA Routine 05/27/2025 2:4 5 AM EST LACTATE DEHYDROGENASE, PLASMA Routine 05/27/2025 2:45 AM EST HEPATIC FUNCTION PANEL Routine 05/27/2025 2:45 AM EST BASIC METABOLIC PANEL, PLASMA Routine 05/27/2025 2:45 AM EST BASIC METABOLIC PANEL, PLASMA Pending Discharge 05/26/2025 11:15 AM EST POCT GLUCOSE METER UNSOLICITED RESULTS Routine 05/26/2025 9:38 AM EST POCT GLUCOSE METER UNSOLICITED RESULTS Routine 05/26/2025 8:44 AM EST ECG ADULT STAT 05/26/2025 8:32 AM EST POCT GLUCOSE METER UNSOLICITED RESULTS Routine 05/26/2025 8:06 AM EST MORPHOLOGY Routine 05/26/2025 12:30 AM EST MANUAL DIFFERENTIAL Routine 05/26/2025 1 2:30 AM EST PROCALCITONIN, PLASMA Routine 05/26/2025 12:30 AM EST SEDIMENTATION RATE, AUTOMATED Routine 05/26/2025 12:30 AM EST CBC WITH AUTO DIFFERENTIAL Routine 05/26/2025 12:30 AM EST TYPE AND SCREEN Pending Discharge 05/26/2025 12:30 AM EST C-REACTIVE PROTEIN, PLASMA Routine 05/26/2025 12:30 AM EST PHOSPHORUS, PLASMA Routine 05/26/2025 12 :30 AM EST MAGNESIUM, PLASMA Routine 05/26/2025 12: 30 AM EST HEPATIC FUNCTION PANEL Routine 05/26/2025 12:30 AM EST BASIC METABOLIC PANEL, PLASMA Routine 05/26/2025 12:30 AM EST MORPHOLOGY Routine 05/25/2025 2:10 AM EST MANUAL DIFFERENTIAL Routine 05/25/2025 2 :10 AM EST CBC WITH AUTO DIFFERENTIAL Routine 05/25/2025 2:10 AM EST RENAL FUNCTION PANEL, PLASMA Routine 05/25/2025 2:10 AM EST RENAL FUNCTION PANEL, PLASMA Pending Discharge 05/23/2025 8:23 AM EST URIC ACID, PLASMA Routine 05/22/2025 4:1 2 AM EST PHOSPHORUS, PLASMA Routine 05/22/2025 4: 12 AM EST LACTATE DEHYDROGENASE, PLASMA Routine 05/22/2025 4:12 AM EST US ABDOMEN DOPPLER LIMITED Routine 05/21/2025 4:36 PM EST MORPHOLOGY Routine 05/21/2025 4:56 AM EST LACTATE, VENOUS Routine 05/21/2025 4:56 AM EST MANUAL DIFFERENTIAL Routine 05/21/2025 4 :56 AM EST IRON & TOTAL IRON BINDING CAPACITY, PLASMA (INCLUDES TRANSFERRIN) Routine 05/21/2025 4:56 AM EST PROTHROMBIN TIME(PT) / INR Routine 05/21/2025 4:56 AM EST CBC WITH AUTO DIFFERENTIAL Routine 05/21/2025 4:56 AM EST URIC ACID, PLASMA Routine 05/21/2025 4:5 6 AM EST PHOSPHORUS, PLASMA Routine 05/21/2025 4: 56 AM EST MAGNESIUM, PLASMA Routine 05/21/2025 4:5 6 AM EST LACTATE DEHYDROGENASE, PLASMA Routine 05/21/2025 4:56 AM EST FERRITIN, SERUM Routine 05/21/2025 4:56 AM EST COMPREHENSIVE METABOLIC PANEL, PLASMA Routine 05/21/2025 4:56 AM EST US LIVER SCREEN Routine 05/20/2025 7:41 PM EST URIC ACID, PLASMA Routine 05/20/2025 5:5 7 PM EST PHOSPHORUS, PLASMA Routine 05/20/2025 5: 57 PM EST LACTATE DEHYDROGENASE, PLASMA Routine 05/20/2025 5:57 PM EST XR PANOREX Routine 05/20/2025 5:35 PM EST XR CHEST 1 VIEW Routine 05/20/2025 4:38 PM EST URINALYSIS WITH REFLEX MICROSCOPIC AND CULTURE Routine 05/20/2025 3:53 PM EST URINE HEWITT PANEL Routine 05/20/2025 3:53 PM EST URINALYSIS WITH REFLEX MICROSCOPIC Routine 05/20/2025 3:53 PM EST MORPHOLOGY STAT 05/20/2025 1:59 PM EST MANUAL DIFFERENTIAL STAT 05/20/2025 1 :59 PM EST N-TERMINAL PROBNP, PLASMA Add-On 05/20/2025 1:59 PM EST BLOOD CULTURE (AEROBIC/ANAEROBIC SET) STAT 05/20/2025 1:59 PM EST BLOOD CULTURE (AEROBIC/ANAEROBIC SET) STAT 05/20/2025 1:59 PM EST CBC WITH AUTO DIFFERENTIAL STAT 05/20/2025 1:59 PM EST LIPASE, PLASMA Add-On 05/20/2025 1:59 PM EST GAMMA GLUTAMYLTRANSFERASE, PLASMA Add-On 05/20/2025 1:59 PM EST AMMONIA, PLASMA STAT 05/20/2025 1:59 PM EST COMPREHENSIVE METABOLIC PANEL, PLASMA STAT 05/20/2025 1:59 PM EST ECG ADULT STAT 05/20/2025 11:07 AM EST BODY FLUID CULTURE AND GRAM STAIN Routine 05/18/2025 1:21 PM EST documented in this encounter Results * POCT glucose meter (05/28/2025 10:23 AM EST) POCT Glucose 95 74 - 99 mg/dL 05/28/2025 10:24 AM EST [facility] Comment:Accuracy of a glucos e result obtained from a capillary whole blood specimen relies upon adequate, non-compromised capillary blood flow. If the capillary glucose result is not consistent with the patient's clinical signs and symptoms, glucose testing should be repeated with either an arterial or venous sample on the glucometer or sent to the main labortory for testing. Comment 05/28/2025 10:24 AM EST [facility] Check And Transfer Beader ID Brian Espinoza 05/28/20 10:24 AM EST [facility] Device ID [id number] 05/28/2025 10:24 AM EST [facility] Specimen Type POC Capillary 05/28/2025 10:24 AM EST [facility] Blood Capillary blood specimen / Unknown 05/28/2025 10:23 AM EST 05/28/2025 10:24 AM EST us Daniel Corbett MD LAB POINT OF CARE TE ST DOCKED DEVICE UNSOLICITED RESULTS Final Result Performing Organization Address City/[facility]/ZIP Co de Phone Number [facility] [address] [place] [address] * (ABNORMAL) POCT glucose meter (05/28/2025 7:56 AM EST) [facility] POCT Glucose 104(H) 74 - 99 mg/dL 05/28/2025 7:57 AM EST [facility] Comment:Accuracy of a glucos e result obtained from a capillary whole blood specimen relies upon adequate, non-compromised capillary blood flow. If the capillary glucose result is not consistent with the patient's clinical signs and symptoms, glucose testing should be repeated with either an arterial or venous sample on the glucometer or sent to the main labortory for testing. Comment 05/28/2025 7:57 AM EST [facility] Check And Transfer Beader ID Brian Espinoza 05/28/20 7:57 AM EST [facility] Device ID [id number] 05/28/2025 7:57 AM EST [facility] Specimen Type POC Capillary 05/28/2025 7:57 AM EST [facility] Blood Capillary blood specimen / Unknown 05/28/2025 7:56 AM EST 05/28/2025 7:57 AM EST us Daniel Corbett MD LAB POINT OF CARE TE ST DOCKED DEVICE UNSOLICITED RESULTS Final Result Performing Organization Address City/[facility]/ZIP Co de Phone Number [facility] [address] [place] [address] * Morphology (05/28/2025 4:20 AM EST) [facility] Polychromasia Slight LAB HEMATOLOGY METHOD 05/28/2025 5:35 AM EST [facility] Echinocytes Present LAB HEMATOLOGY METHOD 05/28/2025 5:35 AM EST [facility] Pappenheimer Bodies Present LAB HEMATOLOGY METHOD 05/28/2025 5:35 AM EST [facility] RBC Morphology Slide Reviewed LAB HEMATOLOGY METHOD 05/28/2025 5:35 AM EST [facility] Target Cells Present LAB HEMATOLOGY METHOD 05/28/2025 5:35 AM EST [facility] Platelet Estimate Platelet smear estimate consistent with automated count LAB HEMATOLOGY METHOD 05/28/2025 5:35 AM EST [facility] Blood Venous blood specimen / Unknown Venipuncture / Unknown 05/28/2025 4:20 AM EST 05/28/2025 4:24 AM EST us Daniel Corbett MD LAB BLOOD ORDERABLES Final Res ult [facility] [address] [place] [address] * (ABNORMAL) Manual Differential (05/28/2025 4:20 AM EST) Blasts % 0 % LAB HEMATOLOGY METHOD 05/28/2025 5:35 AM EST [facility] Promyelocytes % 0 % LAB HEMATOLOGY METHOD 05/28/2025 5:35 AM EST [facility] Myelocytes % 2 % LAB HEMATOLOGY METHOD 05/28/2025 5:35 AM EST [facility] Metamyelocytes % 0 % LAB HEMATOLOGY METHOD 05/28/2025 5:35 AM EST [facility] Neutrophils % 78 % LAB HEMATOLOGY METHOD 05/28/2025 5:35 AM EST [facility] Lymphocytes % 2 % LAB HEMATOLOGY METHOD 05/28/2025 5:35 AM EST [facility] Reactive Lymphocytes % 0 % LAB HEMATOLOGY METHOD 05/28/2025 5:35 AM EST [facility] Monocytes % 13 % LAB HEMATOLOGY METHOD 05/28/2025 5:35 AM EST [facility] Eosinophils % 3 % LAB HEMATOLOGY METHOD 05/28/2025 5:35 AM EST [facility] Basophils % 2 % LAB HEMATOLOGY METHOD 05/28/2025 5:35 AM EST [facility] Blasts Absolute 0.00 10*3/UL LAB HEMATOLOGY METHOD 05/28/2025 5:35 AM EST [facility] Promyelocytes Absolute 0.00 10*3/uL LAB HEMATOLOGY METHOD 05/28/2025 5:35 AM EST [facility] Myelocytes Absolute 1.96 10*3/uL LAB HEMATOLOGY METHOD 05/28/2025 5:35 AM EST [facility] Metamyelocytes Absolute 0.00 10*3/uL LAB HEMATOLOGY METHOD 05/28/2025 5:35 AM EST [facility] Neutrophils Absolute 76.43(H) 1.60 - 6.10 10*3/uL LAB HEMATOLOGY METHOD 05/28/2025 5:35 AM EST [facility] Lymphocytes Absolute 1.96 1.20 - 3.90 10*3/uL LAB HEMATOLOGY METHOD 05/28/2025 5:35 AM EST [facility] Reactive Lymphocytes Absolute 0.00 10*3/uL LAB HEMATOLOGY METHOD 05/28/2025 5:35 AM EST [facility] Monocytes Absolute 12.74(H) 0.30 - 0.90 10*3/uL LAB HEMATOLOGY METHOD 05/28/2025 5:35 AM EST [facility] Eosinophils Absolute 2.94(H) 0.00 - 0.50 10*3/uL LAB HEMATOLOGY METHOD 05/28/2025 5:35 AM EST [facility] Basophils Absolute 1.96(H) 0.00 - 0.10 10*3/uL LAB HEMATOLOGY METHOD 05/28/2025 5:35 AM EST [facility] Blood Venous blood specimen / Unknown Venipuncture / Unknown 05/28/2025 4:20 AM EST 05/28/2025 4:24 AM EST us Daniel Corbett MD LAB BLOOD ORDERABLES Final Res ult [facility] [address] [place] [address] * (ABNORMAL) Uric Acid, Plasma (05/28/2025 4:20 AM EST) Uric Acid, Plasma 12.6(H) 3.7 - 8.0 mg/dL 05/28/2025 5:00 AM EST [facility] Blood Venous blood specimen / Unknown Venipuncture / Unknown 05/28/2025 4:20 AM EST 05/28/2025 4:24 AM EST us Daniel Corbett MD LAB BLOOD ORDERABLES Final Res ult Performing Organization Address [facility] de Phone Number [facility] [address] [place] [address] * (ABNORMAL) Lactate Dehydrogenase, Plasma (05/28/2025 4:20 AM EST) LDH, Plasma 748(H) 116 - 250 U/L 05/28/2025 4:56 AM EST [facility] Comment:Hemolyzed, result ma y be falsely increased. Blood Venous blood specimen / Unknown Venipuncture / Unknown 05/28/2025 4:20 AM EST 05/28/2025 4:24 AM EST us Daniel Corbett MD LAB BLOOD ORDERABLES Final Res ult Performing Organization Address [facility] de Phone Number [facility] [address] [place] [address] * Sedimentation Rate, Automated (05/28/2025 4:20 AM EST) Sedimentation Rate 14 <20 mm/hr 2024 4:47 AM EST [facility] Blood Venous blood specimen / Unknown Venipuncture / Unknown 05/28/2025 4:20 AM EST 05/28/2025 4:24 AM EST us Daniel Corbett MD LAB BLOOD ORDERABLES Final Res ult Performing Organization Address City/[facility] Co de Phone Number [facility] [address] [place] [address] * (ABNORMAL) C-Reactive Protein, Plasma (05/28/2025 4:20 AM EST) CRP, Plasma 75.3(H) <=8.0 mg/L 05/28/2025 4:56 AM EST [facility] Blood Venous blood specimen / Unknown Venipuncture / Unknown 05/28/2025 4:20 AM EST 05/28/2025 4:24 AM EST Narrative [facility] - 05/28/2025 4:56 AM EST This CRP test is appropriate for assessment of infection, systemic inflammation and/or tissue injury. To assess cardiovascular disease risk order high sensitivity CRP (CRPH). us Daniel Corbett MD LAB BLOOD ORDERABLES Final Res ult Performing Organization Address [facility] Co de Phone Number [facility] [address] [place] [address] * (ABNORMAL) Procalcitonin, Plasma (05/28/2025 4:20 AM EST) Procalcitonin, Plasma 1.34(H) <0.09 ng/mL 05/28/2025 5:00 AM EST [facility] Blood Venous blood specimen / Unknown Venipuncture / Unknown 05/28/2025 4:20 AM EST 05/28/2025 4:24 AM EST Narrative [facility] - 05/28/2025 5:00 AM EST Procalcitonin concentrations in healthy individuals are <0.09 ng/mL. Published data support the following interpretive risk assessment: An elevated procalcitonin result does not always indicate sepsis. Various non-infectious conditions are known to increase procalcitonin. Results should be considered in the context of clinical symptoms and other laboratory tests. Procalcitonin >2.0 ng/mL: Concentrations >2.0 ng/mL on the first day of ICU admission are associated with a higher risk of progression to severe sepsis and/or septic shock. The change in PCT over time may help predict 28 day mortality risk. Please consult [email or web address] for more information. Test performed at [facility], [facility] Laboratory. us Daniel Corbett MD LAB BLOOD ORDERABLES Final Res ult Performing Organization Address [facility] Co de Phone Number [facility] [address] [place] [address] * (ABNORMAL) Hepatic Function Panel (05/28/2025 4:20 AM EST) Direct Bilirubin, Plasma 0.8(H) <=0.3 mg/dL 05/28/2025 4:56 AM EST [facility] Comment:Hemolyzed, result ma y be falsely decreased. Alkaline Phosphatase, Plasma 487(H) 40 - 115 U/L 05/28/2025 4:56 AM EST [facility] Total Bilirubin, Plasma 1.8(H) 0.2 - 1.1 mg/dL 05/28/2025 4:56 AM EST [facility] Albumin, Plasma 3.3(L) 3.5 - 5.2 g/dL 05/28/2025 4:56 AM EST [facility] Total Protein 6.6 6.3 - 7.9 g/dL 05/28/2025 4:56 AM EST [facility] ALT, Plasma 23 10 - 50 U/L 05/28/2025 4:56 AM EST [facility] AST, Plasma 63(H) 10 - 50 U/L 05/28/2025 4:56 AM EST [facility] Comment:Hemolyzed, result ma y be falsely increased. Blood Venous blood specimen / Unknown Venipuncture / Unknown 05/28/2025 4:20 AM EST 05/28/2025 4:24 AM EST us Daniel Corbett MD LAB BLOOD ORDERABLES Final Res ult [facility] [address] [place] [id number] * (ABNORMAL) Basic Metabolic Panel, Plasma (05/28/2025 4:20 AM EST) Glucose, Plasma 89 74 - 99 mg/dL 05/28/2025 5:00 AM EST [facility] BUN, Plasma 48(H) 8 - 23 mg/dL 05/28/2025 5:00 AM EST [facility] Creatinine, Plasma 2.38(H) 0.70 - 1.20 mg/dL 05/28/2025 5:00 AM EST [facility] BUN/Creatinine Ratio 20 05/28/2025 5:00 AM EST [facility] Sodium, Plasma 132(L) 136 - 145 mmol/L 05/28/2025 5:00 AM EST [facility] Potassium, Plasma 5.0(H) 3.6 - 4.9 mmol/L 05/28/2025 5:00 AM EST [facility] Chloride, Plasma 95(L) 97 - 107 mmol/L 05/28/2025 5:00 AM EST [facility] CO2, Plasma 23 22 - 29 mmol/L 05/28/2025 5:00 AM EST [facility] Anion Gap 14 6 - 16 mmol/L 05/28/2025 5:00 AM EST [facility] Total Calcium, Plasma 8.4(L) 8.9 - 10.2 mg/dL 05/28/2025 5:00 AM EST [facility] eGFRcr 27.9 mL/min/1.7 3m*2 05/28/2025 5:00 AM EST [facility] Comment:Reported eGFRcr in m L/min/1.73m2 is based the CKD-EPI 2020 equation that does not use a race coefficient. Blood Venous blood specimen / Unknown Venipuncture / Unknown 05/28/2025 4:20 AM EST 05/28/2025 4:24 AM EST us Daniel Corbett MD LAB BLOOD ORDERABLES Final Res ult [facility] [address] [place] [address] * (ABNORMAL) CBC and Differential (05/28/2025 4:20 AM EST) WBC Count 97.99(HH) 3.70 - 10.30 10*3/uL LAB HEMATOLOGY METHOD 05/28/2025 5:36 AM EST [facility] RBC Count 6.20(H) 4.60 - 6.10 10*6/uL LAB HEMATOLOGY METHOD 05/28/2025 5:36 AM EST [facility] HGB 14.7 13.7 - 17.5 g/dL LAB HEMATOLOGY METHOD 05/28/2025 5:36 AM EST [facility] HCT 47.7 40.0 - 51.0 % LAB HEMATOLOGY METHOD 05/28/2025 5:36 AM EST [facility] Platelet Count 54(L) 155 - 369 10*3/uL LAB HEMATOLOGY METHOD 05/28/2025 5:36 AM EST [facility] MCV 77(L) 79 - 98 fL LAB HEMATOLOGY METHOD 05/28/2025 5:36 AM EST [facility] MCH 23.7(L) 26.0 - 32.0 pg LAB HEMATOLOGY METHOD 05/28/2025 5:36 AM EST [facility] MCHC 30.8 30.7 - 35.5 g/dL LAB HEMATOLOGY METHOD 05/28/2025 5:36 AM EST [facility] RDW 29.3(H) 11.5 - 14.5 % LAB HEMATOLOGY METHOD 05/28/2025 5:36 AM EST [facility] MPV LAB HEMATOLOGY METHOD 05/28/2025 5:36 AM EST [facility] Comment:Not Measured nRBC 8.3(H) <=0.0 per 100 WBCs LAB HEMATOLOGY METHOD 05/28/2025 5:36 AM EST [facility] Differential Type Manual LAB HEMATOLOGY METHOD 05/28/2025 5:36 AM EST [facility] Blood Venous blood specimen / Unknown Venipuncture / Unknown 05/28/2025 4:20 AM EST 05/28/2025 4:24 AM EST Narrative [facility] - 05/28/2025 5:36 AM EST Therapeutic decision making should be based on absolute values, rather than percentages. The previously reported component Neutrophils % is no longer being reported.The previously reported component Lymphocytes % is no longer being reported.The previously reported component Monocytes % is no longer being reported.The previously reported component Eosinophils % is no longer being reported.The previously reported component Basophils % is no longer being reported.The previously reported component Immature Granulocytes % is no longer being reported.The previously reported component Absolute Neutrophils is no longer being reported.The previously reported component Absolute Lymphocytes is no longer being reported.The previously reported component Absolute Monocytes is no longer being reported.The previously reported component Absolute Eosinophils is no longer being reported.The previously reported component Absolute Basophils is no longer being reported.The previously reported component Absolute Immature Granulocytes is no longer being reported. us Daniel Corbett MD LAB BLOOD ORDERABLES Final Res ult [facility] [address] [place] [address] * Magnesium, Plasma (05/28/2025 4:20 AM EST) Magnesium, Plasma 2.3 1.9 - 2.4 mg/dL 05/28/2025 4:56 AM EST [facility] Blood Venous blood specimen / Unknown Venipuncture / Unknown 05/28/2025 4:20 AM EST 05/28/2025 4:24 AM EST us Daniel Corbett MD LAB BLOOD ORDERABLES Final Res ult [facility] [address] [place] [address] * Phosphorus, Plasma (05/28/2025 4:20 AM EST) Phosphorus, Plasma 4.0 2.5 - 4.5 mg/dL 05/28/2025 4:56 AM EST [facility] Blood Venous blood specimen / Unknown Venipuncture / Unknown 05/28/2025 4:20 AM EST 05/28/2025 4:24 AM EST us Daniel Corbett MD LAB BLOOD ORDERABLES Final Res ult Performing Organization Address City/[facility]/ZIP Co de Phone Number [facility] [address] [place] [address] * (ABNORMAL) Uric Acid, Plasma (05/27/2025 2:45 AM EST) Uric Acid, Plasma 12.4(H) 3.7 - 8.0 mg/dL 05/27/2025 3:32 AM EST [facility] Blood Venous blood specimen / Unknown Venipuncture / Unknown 05/27/2025 2:45 AM EST 05/27/2025 2:55 AM EST us Daniel Corbett MD LAB BLOOD ORDERABLES Final Res ult [facility] [address] [place] [address] * (ABNORMAL) Lactate Dehydrogenase, Plasma (05/27/2025 2:45 AM EST) LDH, Plasma 730(H) 116 - 250 U/L 05/27/2025 3:25 AM EST [facility] Blood Venous blood specimen / Unknown Venipuncture / Unknown 05/27/2025 2:45 AM EST 05/27/2025 2:55 AM EST us Daniel Corbett MD LAB BLOOD ORDERABLES Final Res ult Performing Organization Address City/[facility] Co de Phone Number [facility] [address] [place] [address] * Sedimentation Rate, Automated (05/27/2025 2:45 AM EST) Sedimentation Rate 17 <20 mm/hr 2024 3:[address] [facility] Blood Venous blood specimen / Unknown Venipuncture / Unknown 05/27/2025 2:45 AM EST 05/27/2025 2:55 AM EST us Daniel Corbett MD LAB BLOOD ORDERABLES Final Res ult Performing Organization Address [facility] [place] [address] * (ABNORMAL) C-Reactive Protein, Plasma (05/27/2025 2:45 AM EST) CRP, Plasma 99.8(H) <=8.0 mg/L 05/27/2025 3:[address] [facility] Blood Venous blood specimen / Unknown Venipuncture / Unknown 05/27/2025 2:45 AM EST 05/27/2025 2:55 AM EST Narrative [facility] - 05/27/2025 3:25 AM EST This CRP test is appropriate for assessment of infection, systemic inflammation and/or tissue injury. To assess cardiovascular disease risk order high sensitivity CRP (CRPH). us Daniel Corbett MD LAB BLOOD ORDERABLES Final Res ult Performing Organization Address City/[facility]/ZIP Co de Phone Number [facility] [address] [place] [address] * (ABNORMAL) Procalcitonin, Plasma (05/27/2025 2:45 AM EST) Procalcitonin, Plasma 1.99(H) <0.09 ng/mL 05/27/2025 3:[address] [facility] Blood Venous blood specimen / Unknown Venipuncture / Unknown 05/27/2025 2:45 AM EST 05/27/2025 2:55 AM EST Narrative [facility] - 05/27/2025 3:32 AM EST Procalcitonin concentrations in healthy individuals are <0.09 ng/mL. Published data support the following interpretive risk assessment: An elevated procalcitonin result does not always indicate sepsis. Various non-infectious conditions are known to increase procalcitonin. Results should be considered in the context of clinical symptoms and other laboratory tests. Procalcitonin >2.0 ng/mL: Concentrations >2.0 ng/mL on the first day of ICU admission are associated with a higher risk of progression to severe sepsis and/or septic shock. The change in PCT over time may help predict 28 day mortality risk. Please consult [email or web address] for more information. Test performed at [facility]. us Daniel Corbett MD LAB BLOOD ORDERABLES Final Res ult Performing Organization Address [facility]/State/ZIP Co de Phone Number [facility] [address] [place] [address] * (ABNORMAL) Hepatic Function Panel (05/27/2025 2:45 AM EST) Direct Bilirubin, Plasma 0.9(H) <=0.3 mg/dL 05/27/2025 3:25 AM EST [facility] Alkaline Phosphatase, Plasma 443(H) 40 - 115 U/L 05/27/2025 3:25 AM EST [facility] Total Bilirubin, Plasma 1.6(H) 0.2 - 1.1 mg/dL 05/27/2025 3:25 AM EST [facility] Albumin, Plasma 3.3(L) 3.5 - 5.2 g/dL 05/27/2025 3:25 AM EST [facility] Total Protein 6.5 6.3 - 7.9 g/dL 05/27/2025 3:25 AM EST [facility] ALT, Plasma 21 10 - 50 U/L 05/27/2025 3:25 AM EST [facility] AST, Plasma 51(H) 10 - 50 U/L 05/27/2025 3:25 AM EST [facility] Blood Venous blood specimen / Unknown Venipuncture / Unknown 05/27/2025 2:45 AM EST 05/27/2025 2:55 AM EST us Daniel Corbett MD LAB BLOOD ORDERABLES Final Res ult [facility] [address] [place] [address] * (ABNORMAL) Basic Metabolic Panel, Plasma (05/27/2025 2:45 AM EST) Glucose, Plasma 91 74 - 99 mg/dL 05/27/2025 3:32 AM EST [facility] BUN, Plasma 42(H) 8 - 23 mg/dL 05/27/2025 3:32 AM EST [facility] Creatinine, Plasma 2.32(H) 0.70 - 1.20 mg/dL 05/27/2025 3:32 AM EST [facility] BUN/Creatinine Ratio 18 05/27/2025 3:32 AM EST [facility] Sodium, Plasma 134(L) 136 - 145 mmol/L 05/27/2025 3:32 AM EST [facility] Potassium, Plasma 4.6 3.6 - 4.9 mmol/L 05/27/2025 3:32 AM EST [facility] Chloride, Plasma 96(L) 97 - 107 mmol/L 05/27/2025 3:32 AM EST [facility] CO2, Plasma 22 22 - 29 mmol/L 05/27/2025 3:32 AM EST [facility] Anion Gap 16 6 - 16 mmol/L 05/27/2025 3:32 AM EST [facility] Total Calcium, Plasma 8.3(L) 8.9 - 10.2 mg/dL 05/27/2025 3:32 AM EST [facility] eGFRcr 28.8 mL/min/1.7 3m*2 05/27/2025 3:32 AM EST [facility] Comment:Reported eGFRcr in m L/min/1.73m2 is based the CKD-EPI 2020 equation that does not use a race coefficient. Blood Venous blood specimen / Unknown Venipuncture / Unknown 05/27/2025 2:45 AM EST 05/27/2025 2:55 AM EST us Daniel Corbett MD LAB BLOOD ORDERABLES Final Res ult [facility] [address] [place] [address] * (ABNORMAL) CBC and Differential (05/27/2025 2:45 AM EST) WBC Count 117.62(HH) 3.70 - 10.30 10*3/uL LAB HEMATOLOGY METHOD 05/27/2025 4:23 AM EST [facility] Comment:Confirmed RBC Count 6.10 4.60 - 6.10 10*6/uL LAB HEMATOLOGY METHOD 05/27/2025 4:23 AM EST [facility] HGB 14.4 13.7 - 17.5 g/dL LAB HEMATOLOGY METHOD 05/27/2025 4:23 AM EST [facility] HCT 46.4 40.0 - 51.0 % LAB HEMATOLOGY METHOD 05/27/2025 4:23 AM EST [facility] Platelet Count 64(L) 155 - 369 10*3/uL LAB HEMATOLOGY METHOD 05/27/2025 4:23 AM EST [facility] MCV 76(L) 79 - 98 fL LAB HEMATOLOGY METHOD 05/27/2025 4:23 AM EST [facility] MCH 23.6(L) 26.0 - 32.0 pg LAB HEMATOLOGY METHOD 05/27/2025 4:23 AM EST [facility] MCHC 31.0 30.7 - 35.5 g/dL LAB HEMATOLOGY METHOD 05/27/2025 4:23 AM [facility] RDW 26.5(H) 11.5 - 14.5 % LAB HEMATOLOGY METHOD 05/27/2025 4:23 AM [facility] MPV LAB HEMATOLOGY METHOD 05/27/2025 4:23 AM [facility] Comment:Not Measured nRBC 10.8(H) <=0.0 per 100 WBCs LAB HEMATOLOGY METHOD 05/27/2025 4:23 AM [facility] Differential Type Automated LAB HEMATOLOGY METHOD 05/27/2025 4:23 AM [facility] Neutrophils % 80 % LAB HEMATOLOGY METHOD 05/27/2025 4:23 AM [facility] Lymphocytes % 1 % LAB HEMATOLOGY METHOD 05/27/2025 4:23 AM [facility] Monocytes % 10 % LAB HEMATOLOGY METHOD 05/27/2025 4:23 AM [facility] Eosinophils % 2 % LAB HEMATOLOGY METHOD 05/27/2025 4:23 AM [facility] Basophils % 1 % LAB HEMATOLOGY METHOD 05/27/2025 4:23 AM [facility] Immature Granulocytes % 6 % LAB HEMATOLOGY METHOD 05/27/2025 4:23 AM [facility] Neutrophils Absolute 93.88(H) 1.60 - 6.10 10*3/uL LAB HEMATOLOGY METHOD 05/27/2025 4:23 AM [facility] Lymphocytes Absolute 1.46 1.20 - 3.90 10*3/uL LAB HEMATOLOGY METHOD 05/27/2025 4:23 AM [facility] Monocytes Absolute 12.12(H) 0.30 - 0.90 10*3/uL LAB HEMATOLOGY METHOD 05/27/2025 4:23 AM [facility] Eosinophils Absolute 2.36(H) 0.00 - 0.50 10*3/uL LAB HEMATOLOGY METHOD 05/27/2025 4:23 AM [facility] Basophils Absolute 0.84(H) 0.00 - 0.10 10*3/uL LAB HEMATOLOGY METHOD 05/27/2025 4:23 AM [facility] Immature Granulocytes Absolute 6.96(H) 0.00 - 0.06 10*3/uL LAB HEMATOLOGY METHOD 05/27/2025 4:23 AM [facility] Blood Venous blood specimen / Unknown Venipuncture / Unknown 05/27/2025 2:45 AM EST 05/27/2025 2:55 AM EST Narrative [facility] - 05/27/2025 4:23 AM EST Therapeutic decision making should be based on absolute values, rather than percentages. us Daniel Corbett MD LAB BLOOD ORDERABLES Final Res ult Performing Organization Address [facility]/ZIP Co de Phone Number [facility] [address] [place] [address] * Magnesium, Plasma (05/27/2025 2:45 AM EST) Magnesium, Plasma 2.3 1.9 - 2.4 mg/dL 05/27/2025 3:25 AM EST [facility] Blood Venous blood specimen / Unknown Venipuncture / Unknown 05/27/2025 2:45 AM EST 05/27/2025 2:55 AM EST us Daniel Corbett MD LAB BLOOD ORDERABLES Final Res ult Performing Organization Address [facility] Co de Phone Number [facility] [address] [place] [address] * (ABNORMAL) Phosphorus, Plasma (05/27/2025 2:45 AM EST) Phosphorus, Plasma 4.7(H) 2.5 - 4.5 mg/dL 05/27/2025 3:25 AM EST [facility] Blood Venous blood specimen / Unknown Venipuncture / Unknown 05/27/2025 2:45 AM EST 05/27/2025 2:55 AM EST us Daniel Corbett MD LAB BLOOD ORDERABLES Final Res ult Performing Organization Address City/[facility] Co de Phone Number [facility] [address] [place] [address] * (ABNORMAL) Basic Metabolic Panel, Plasma (05/26/2025 11:15 AM EST) Glucose, Plasma 110(H) 74 - 99 mg/dL 05/26/2025 11:51 AM EST [facility] BUN, Plasma 41(H) 8 - 23 mg/dL 05/26/2025 11:51 AM EST [facility] Creatinine, Plasma 2.22(H) 0.70 - 1.20 mg/dL 05/26/2025 11:51 AM EST [facility] BUN/Creatinine Ratio 18 05/26/2025 11:51 AM EST [facility] Sodium, Plasma 135(L) 136 - 145 mmol/L 05/26/2025 11:51 AM EST [facility] Potassium, Plasma 4.6 3.6 - 4.9 mmol/L 05/26/2025 11:51 AM EST [facility] Chloride, Plasma 96(L) 97 - 107 mmol/L 05/26/2025 11:51 AM EST [facility] CO2, Plasma 22 22 - 29 mmol/L 05/26/2025 11:51 AM EST [facility] Anion Gap 17(H) 6 - 16 mmol/L 05/26/2025 11:51 AM EST [facility] Total Calcium, Plasma 8.2(L) 8.9 - 10.2 mg/dL 05/26/2025 11:51 AM EST [facility] eGFRcr 30.3 mL/min/1.7 3m*2 05/26/2025 11:51 AM EST [facility] Comment:Reported eGFRcr in m L/min/1.73m2 is based the CKD-EPI 2020 equation that does not use a race coefficient. Blood Venous blood specimen / Unknown Venipuncture / Unknown 05/26/2025 11:15 AM EST 05/26/2025 11:20 AM EST us Daniel Corbett MD LAB BLOOD ORDERABLES Final Res ult [facility] [address] [place] [address] * (ABNORMAL) POCT glucose meter (05/26/2025 9:38 AM EST) POCT Glucose 147(H) 74 - 99 mg/dL 05/26/2025 9:40 AM EST [facility] Comment:Accuracy of a glucos e result obtained from a capillary whole blood specimen relies upon adequate, non-compromised capillary blood flow. If the capillary glucose result is not consistent with the patient's clinical signs and symptoms, glucose testing should be repeated with either an arterial or venous sample on the glucometer or sent to the main labortory for testing. Comment 05/26/2025 9:40 AM EST [facility] Check And Transfer Beader ID Elsi Campo 05/26/2025 9:40 AM EST [facility] Device ID [id number] 05/26/2025 9:40 AM EST [facility] Specimen Type POC Capillary 05/26/2025 9:40 AM EST [facility] Blood Capillary blood specimen / Unknown 05/26/2025 9:38 AM EST 05/26/2025 9:40 AM EST us Daniel Corbett MD LAB POINT OF CARE TE ST DOCKED DEVICE UNSOLICITED RESULTS Final Result Performing Organization Address City/State/[facility] Co de Phone Number [facility] [address] [place] [address] * (ABNORMAL) POCT glucose meter (05/26/2025 8:44 AM EST) [facility] POCT Glucose 149(H) 74 - 99 mg/dL 05/26/2025 8:45 AM EST [facility] Comment:Accuracy of a glucos e result obtained from a capillary whole blood specimen relies upon adequate, non-compromised capillary blood flow. If the capillary glucose result is not consistent with the patient's clinical signs and symptoms, glucose testing should be repeated with either an arterial or venous sample on the glucometer or sent to the main labortory for testing. Comment 05/26/2025 8:45 AM EST [facility] Check And Transfer Beader ID Elsi Campo 05/26/2025 8:45 AM EST [facility] Device ID [id number] 05/26/2025 8:45 AM EST [facility] Specimen Type POC Capillary 05/26/2025 8:45 AM EST [facility] Blood Capillary blood specimen / Unknown 05/26/2025 8:44 AM EST 05/26/2025 8:45 AM EST us Daniel Corbett MD LAB POINT OF CARE TE ST DOCKED DEVICE UNSOLICITED RESULTS Final Result [facility] [address] [place] [address] * ECG Adult (05/26/2025 8:32 AM EST) Pathologist [facility] EKG DIAGNOSIS CLASS Abnormal MUSE ECG Ventricular Rate 82 BPM MUSE ECG Atrial Rate 82 BPM MUSE ECG CA Interval 176 ms MUSE ECG QRSD Interval 98 ms MUSE ECG QT Interval 390 ms MUSE ECG QTC Interval 455 ms MUSE ECG P Vista 84 degrees MUSE ECG R Vista 55 degrees MUSE ECG T [place] 17 degrees MUSE ECG Diagnosis Sinus rhythm with premature atrial complexes MUSE ECG Diagnosis Incomplete right bundle branch block MUSE ECG Diagnosis Septal infarct , age undetermined MUSE ECG Diagnosis Abnormal ECG MUSE ECG Diagnosis MUSE ECG Diagnosis Confirmed by Juan Mcgarry ([id number]) on 05/26/2025 2:52:11 PM MUSE ECG 05/26/2025 8:32 AM EST 05/26/2025 2:52 PM EST Daniel Corbett MD ECG ORDERABLES Final Result MUSE ECG * POCT glucose meter (05/26/2025 8:06 AM EST) Pathologist [facility] POCT Glucose 98 74 - 99 mg/dL 05/26/2025 8:08 AM EST [facility] Comment:Accuracy of a glucos e result obtained from a capillary whole blood specimen relies upon adequate, non-compromised capillary blood flow. If the capillary glucose result is not consistent with the patient's clinical signs and symptoms, glucose testing should be repeated with either an arterial or venous sample on the glucometer or sent to the main labortory for testing. Comment 05/26/2025 8:08 AM EST [facility] Check And Transfer Beader ID Murtaza Couch 05/26/20 8:08 AM EST [facility] Device ID [id number] 05/26/2025 8:08 AM EST [facility] Specimen Type POC Capillary 05/26/2025 8:08 AM EST [facility] Blood Capillary blood specimen / Unknown 05/26/2025 8:06 AM EST 05/26/2025 8:08 AM EST us Daniel Corbett MD LAB POINT OF CARE TE ST DOCKED DEVICE UNSOLICITED RESULTS Final Result Performing Organization Address City/[facility]/ZIP Co de Phone Number [facility] [address] [place] [address] * Morphology (05/26/2025 12:30 AM EST) Polychromasia Slight LAB HEMATOLOGY METHOD 05/26/2025 1:47 AM EST [facility] Echinocytes Present LAB HEMATOLOGY METHOD 05/26/2025 1:47 AM EST [facility] Gonzalez-Sutcliffe Bodies Present LAB HEMATOLOGY METHOD 05/26/2025 1:47 AM EST [facility] RBC Morphology Slide Reviewed LAB HEMATOLOGY METHOD 05/26/2025 1:47 AM EST [facility] Target Cells Present LAB HEMATOLOGY METHOD 05/26/2025 1:47 AM EST [facility] Platelet Estimate Platelet smear estimate consistent with automated count LAB HEMATOLOGY METHOD 05/26/2025 1:47 AM EST [facility] Blood Venous blood specimen / Unknown Venipuncture / Unknown 05/26/2025 12:30 AM EST 05/26/2025 12:37 AM EST us Daniel Corbett MD LAB BLOOD ORDERABLES Final Res ult Performing Organization Address City/[facility] Co de Phone Number [facility] [address] [place] [address] * (ABNORMAL) Manual Differential (05/26/2025 12:30 AM EST) Blasts % 0 % LAB HEMATOLOGY METHOD 05/26/2025 1:47 AM EST [facility] Promyelocytes % 0 % LAB HEMATOLOGY METHOD 05/26/2025 1:47 AM EST [facility] Myelocytes % 0 % LAB HEMATOLOGY METHOD 05/26/2025 1:47 AM EST [facility] Metamyelocytes % 0 % LAB HEMATOLOGY METHOD 05/26/2025 1:47 AM EST [facility] Neutrophils % 85 % LAB HEMATOLOGY METHOD 05/26/2025 1:47 AM EST [facility] Lymphocytes % 1 % LAB HEMATOLOGY METHOD 05/26/2025 1:47 AM EST [facility] Reactive Lymphocytes % 0 % LAB HEMATOLOGY METHOD 05/26/2025 1:47 AM EST [facility] Monocytes % 9 % LAB HEMATOLOGY METHOD 05/26/2025 1:47 AM EST [facility] Eosinophils % 4 % LAB HEMATOLOGY METHOD 05/26/2025 1:47 AM EST [facility] Basophils % 1 % LAB HEMATOLOGY METHOD 05/26/2025 1:[address] [facility] Blasts Absolute 0.00 10*3/UL LAB HEMATOLOGY METHOD 05/26/2025 1:47 AM EST [facility] Promyelocytes Absolute 0.00 10*3/uL LAB HEMATOLOGY METHOD 05/26/2025 1:47 AM EST [facility] Myelocytes Absolute 0.00 10*3/uL LAB HEMATOLOGY METHOD 05/26/2025 1:47 AM EST [facility] Metamyelocytes Absolute 0.00 10*3/uL LAB HEMATOLOGY METHOD 05/26/2025 1:47 AM EST [facility] Neutrophils Absolute 118.81(H) 1.60 - 6.10 10*3/uL LAB HEMATOLOGY METHOD 05/26/2025 1:47 AM EST [facility] Lymphocytes Absolute 1.40 1.20 - 3.90 10*3/uL LAB HEMATOLOGY METHOD 05/26/2025 1:47 AM EST [facility] Reactive Lymphocytes Absolute 0.00 10*3/uL LAB HEMATOLOGY METHOD 05/26/2025 1:47 AM EST [facility] Monocytes Absolute 12.58(H) 0.30 - 0.90 10*3/uL LAB HEMATOLOGY METHOD 05/26/2025 1:[address] [facility] Eosinophils Absolute 5.59(H) 0.00 - 0.50 10*3/uL LAB HEMATOLOGY METHOD 05/26/2025 1:47 AM [facility] Basophils Absolute 1.40(H) 0.00 - 0.10 10*3/uL LAB HEMATOLOGY METHOD 05/26/2025 1:47 AM [facility] Blood Venous blood specimen / Unknown Venipuncture / Unknown 05/26/2025 12:30 AM EST 05/26/2025 12:37 AM EST us Daniel Corbett MD LAB BLOOD ORDERABLES Final Res ult Performing Organization Address City/[facility]/ZIP Co de Phone Number [facility] [address] [place] [address] * Type and Screen (05/26/2025 12:30 AM EST) ABO/Rh O Positive 05/26/2025 12:36 AM EST [facility] Antibody Screen Negative 05/26/2025 12:36 AM EST [facility] Specimen Expiration 05/29/2025 23:59 05/26/2025 12:36 AM EST [facility] Blood Venous blood specimen / Unknown Venipuncture / Unknown 05/26/2025 12:30 AM EST 05/26/2025 12:36 AM EST Tigist Castillo MD LAB BLOOD BANK TEST ORDER DMITRI Final Result Performing Organization Address [facility] de Phone Number BLOOD BANK [address] [place] [address] * Sedimentation Rate, Automated (05/26/2025 12:30 AM EST) Sedimentation Rate 13 <20 mm/hr 2024 12:57 AM EST [facility] Blood Venous blood specimen / Unknown Venipuncture / Unknown 05/26/2025 12:30 AM EST 05/26/2025 12:37 AM EST Daniel Corbett MD LAB BLOOD ORDERABLES Final Res ult Performing Organization Address City/[facility] Co de Phone Number [facility] [address] [place] [address] * (ABNORMAL) C-Reactive Protein, Plasma (05/26/2025 12:30 AM EST) CRP, Plasma 117.1(H) <=8.0 mg/L 05/26/2025 1:50 AM EST [facility] Blood Venous blood specimen / Unknown Venipuncture / Unknown 05/26/2025 12:30 AM EST 05/26/2025 12:37 AM EST Narrative [facility] - 05/26/2025 1:50 AM EST This CRP test is appropriate for assessment of infection, systemic inflammation and/or tissue injury. To assess cardiovascular disease risk order high sensitivity CRP (CRPH). us Daniel Corbett MD LAB BLOOD ORDERABLES Final Res ult Performing Organization Address [facility] Co de Phone Number [facility] [address] [place] [address] * (ABNORMAL) Procalcitonin, Plasma (05/26/2025 12:30 AM EST) Procalcitonin, Plasma 2.13(H) <0.09 ng/mL 05/26/2025 1:13 AM EST [facility] Blood Venous blood specimen / Unknown Venipuncture / Unknown 05/26/2025 12:30 AM EST 05/26/2025 12:37 AM EST Narrative [facility] - 05/26/2025 1:13 AM EST Procalcitonin concentrations in healthy individuals are <0.09 ng/mL. Published data support the following interpretive risk assessment: An elevated procalcitonin result does not always indicate sepsis. Various non-infectious conditions are known to increase procalcitonin. Results should be considered in the context of clinical symptoms and other laboratory tests. Procalcitonin >2.0 ng/mL: Concentrations >2.0 ng/mL on the first day of ICU admission are associated with a higher risk of progression to severe sepsis and/or septic shock. The change in PCT over time may help predict 28 day mortality risk. Please consult [email or web address] for more information. Test performed at [facility], [facility] Laboratory. us Daniel Corbett MD LAB BLOOD ORDERABLES Final Res ult Performing Organization Address [facility]/ZIP Co de Phone Number [facility] [address] [place] [address] * (ABNORMAL) Hepatic Function Panel (05/26/2025 12:30 AM EST) Direct Bilirubin, Plasma 0.8(H) <=0.3 mg/dL 05/26/2025 1:50 AM EST [facility] Comment:Hemolyzed, result ma y be falsely decreased. Alkaline Phosphatase, Plasma 408(H) 40 - 115 U/L 05/26/2025 1:50 AM EST [facility] Total Bilirubin, Plasma 1.8(H) 0.2 - 1.1 mg/dL 05/26/2025 1:50 AM EST [facility] Albumin, Plasma 3.2(L) 3.5 - 5.2 g/dL 05/26/2025 1:50 AM EST [facility] Total Protein 6.5 6.3 - 7.9 g/dL 05/26/2025 1:50 AM EST [facility] ALT, Plasma 22 10 - 50 U/L 05/26/2025 1:50 AM EST [facility] AST, Plasma 65(H) 10 - 50 U/L 05/26/2025 1:50 AM EST [facility] Comment:Hemolyzed, result ma y be falsely increased. Blood Venous blood specimen / Unknown Venipuncture / Unknown 05/26/2025 12:30 AM EST 05/26/2025 12:37 AM EST us Daniel Corbett MD LAB BLOOD ORDERABLES Final Res ult [facility] [address] [place] [address] * (ABNORMAL) Basic Metabolic Panel, Plasma (05/26/2025 12:30 AM EST) Glucose, Plasma 96 74 - 99 mg/dL 05/26/2025 1:50 AM EST [facility] BUN, Plasma 42(H) 8 - 23 mg/dL 05/26/2025 1:50 AM EST [facility] Creatinine, Plasma 2.30(H) 0.70 - 1.20 mg/dL 05/26/2025 1:50 AM EST [facility] BUN/Creatinine Ratio 18 05/26/2025 1:50 AM EST [facility] Sodium, Plasma 133(L) 136 - 145 mmol/L 05/26/2025 1:50 AM EST [facility] Potassium, Plasma 5.2(H) 3.6 - 4.9 mmol/L 05/26/2025 1:50 AM EST [facility] Chloride, Plasma 95(L) 97 - 107 mmol/L 05/26/2025 1:50 AM EST [facility] CO2, Plasma 19(L) 22 - 29 mmol/L 05/26/2025 1:50 AM EST [facility] Anion Gap 19(H) 6 - 16 mmol/L 05/26/2025 1:50 AM EST [facility] Total Calcium, Plasma 8.6(L) 8.9 - 10.2 mg/dL 05/26/2025 1:50 AM EST [facility] eGFRcr 29.1 mL/min/1.7 3m*2 05/26/2025 1:50 AM EST [facility] Comment:Reported eGFRcr in m L/min/1.73m2 is based the CKD-EPI 2020 equation that does not use a race coefficient. Blood Venous blood specimen / Unknown Venipuncture / Unknown 05/26/2025 12:30 AM EST 05/26/2025 12:37 AM EST us Daniel Corbett MD LAB BLOOD ORDERABLES Final Res ult [facility] [address] [place] [address] * (ABNORMAL) CBC and Differential (05/26/2025 12:30 AM EST) WBC Count 139.78(HH) 3.70 - 10.30 10*3/uL LAB HEMATOLOGY METHOD 05/26/2025 1:47 AM EST [facility] RBC Count 6.39(H) 4.60 - 6.10 10*6/uL LAB HEMATOLOGY METHOD 05/26/2025 1:47 AM EST [facility] HGB 14.9 13.7 - 17.5 g/dL LAB HEMATOLOGY METHOD 05/26/2025 1:47 AM EST [facility] HCT 49.0 40.0 - 51.0 % LAB HEMATOLOGY METHOD 05/26/2025 1:47 AM EST [facility] Platelet Count 85(L) 155 - 369 10*3/uL LAB HEMATOLOGY METHOD 05/26/2025 1:47 AM EST [facility] MCV 77(L) 79 - 98 fL LAB HEMATOLOGY METHOD 05/26/2025 1:47 AM EST [facility] MCH 23.3(L) 26.0 - 32.0 pg LAB HEMATOLOGY METHOD 05/26/2025 1:47 AM EST [facility] MCHC 30.4(L) 30.7 - 35.5 g/dL LAB HEMATOLOGY METHOD 05/26/2025 1:47 AM EST [facility] RDW 28.1(H) 11.5 - 14.5 % LAB HEMATOLOGY METHOD 05/26/2025 1:47 AM EST [facility] MPV LAB HEMATOLOGY METHOD 05/26/2025 1:47 AM EST [facility] Comment:Not Measured nRBC 13.1(H) <=0.0 per 100 WBCs LAB HEMATOLOGY METHOD 05/26/2025 1:47 AM EST [facility] Differential Type Manual LAB HEMATOLOGY METHOD 05/26/2025 1:47 AM EST [facility] Blood Venous blood specimen / Unknown Venipuncture / Unknown 05/26/2025 12:30 AM EST 05/26/2025 12:37 AM EST [facility] - 05/26/2025 1:47 AM EST Therapeutic decision making should be based on absolute values, rather than percentages. The previously reported component Neutrophils % is no longer being reported.The previously reported component Lymphocytes % is no longer being reported.The previously reported component Monocytes % is no longer being reported.The previously reported component Eosinophils % is no longer being reported.The previously reported component Basophils % is no longer being reported.The previously reported component Immature Granulocytes % is no longer being reported.The previously reported component Absolute Neutrophils is no longer being reported.The previously reported component Absolute Lymphocytes is no longer being reported.The previously reported component Absolute Monocytes is no longer being reported.The previously reported component Absolute Eosinophils is no longer being reported.The previously reported component Absolute Basophils is no longer being reported.The previously reported component Absolute Immature Granulocytes is no longer being reported. us Daniel Corbett MD LAB BLOOD ORDERABLES Final Res ult [facility] [address] [place] [address] * Magnesium, Plasma (05/26/2025 12:30 AM EST) Magnesium, Plasma 2.1 1.9 - 2.4 mg/dL 05/26/2025 1:50 AM EST [facility] Blood Venous blood specimen / Unknown Venipuncture / Unknown 05/26/2025 12:30 AM EST 05/26/2025 12:37 AM EST us Daniel Corbett MD LAB BLOOD ORDERABLES Final Res ult Performing Organization Address City/[facility]/ZIP Co de Phone Number [facility] [address] [place] [address] * Phosphorus, Plasma (05/26/2025 12:30 AM EST) Phosphorus, Plasma 4.1 2.5 - 4.5 mg/dL 05/26/2025 1:50 AM EST [facility] Blood Venous blood specimen / Unknown Venipuncture / Unknown 05/26/2025 12:30 AM EST 05/26/2025 12:37 AM EST us Daniel Corbett MD LAB BLOOD ORDERABLES Final Res ult Performing Organization Address City/[facility]/ZIP Co de Phone Number [facility] [address] [place] [address] * Morphology (05/25/2025 2:10 AM EST) Pathologist [facility] Polychromasia Slight LAB HEMATOLOGY METHOD 05/25/2025 3:11 AM EST [facility] Echinocytes Present LAB HEMATOLOGY METHOD 05/25/2025 3:11 AM EST [facility] Gonzalez-Sutcliffe Bodies Present LAB HEMATOLOGY METHOD 05/25/2025 3:11 AM EST [facility] RBC Morphology Slide Reviewed LAB HEMATOLOGY METHOD 05/25/2025 3:11 AM EST [facility] Target Cells Present LAB HEMATOLOGY METHOD 05/25/2025 3:11 AM EST [facility] Platelet Estimate Platelet smear estimate consistent with automated count LAB HEMATOLOGY METHOD 05/25/2025 3:11 AM EST [facility] Blood Venous blood specimen / Unknown Venipuncture / Unknown 05/25/2025 2:10 AM EST 05/25/2025 2:21 AM EST Erika Solorzano MD LAB BLOOD ORDERABLES Final Result [facility] [address] [place] [address] * (ABNORMAL) Manual Differential (05/25/2025 2:10 AM EST) Blasts % 0 % LAB HEMATOLOGY METHOD 05/25/2025 3:11 AM EST [facility] Promyelocytes % 0 % LAB HEMATOLOGY METHOD 05/25/2025 3:11 AM EST [facility] Myelocytes % 0 % LAB HEMATOLOGY METHOD 05/25/2025 3:11 AM EST [facility] Metamyelocytes % 0 % LAB HEMATOLOGY METHOD 05/25/2025 3:11 AM EST [facility] Neutrophils % 89 % LAB HEMATOLOGY METHOD 05/25/2025 3:11 AM EST [facility] Lymphocytes % 0 % LAB HEMATOLOGY METHOD 05/25/2025 3:11 AM EST [facility] Reactive Lymphocytes % 0 % LAB HEMATOLOGY METHOD 05/25/2025 3:11 AM EST [facility] Monocytes % 7 % LAB HEMATOLOGY METHOD 05/25/2025 3:11 AM EST [facility] Eosinophils % 3 % LAB HEMATOLOGY METHOD 05/25/2025 3:11 AM EST [facility] Basophils % 1 % LAB HEMATOLOGY METHOD 05/25/2025 3:11 AM EST [facility] Blasts Absolute 0.00 10*3/UL LAB HEMATOLOGY METHOD 05/25/2025 3:11 AM EST [facility] Promyelocytes Absolute 0.00 10*3/uL LAB HEMATOLOGY METHOD 05/25/2025 3:11 AM EST [facility] Myelocytes Absolute 0.00 10*3/uL LAB HEMATOLOGY METHOD 05/25/2025 3:11 AM EST [facility] Metamyelocytes Absolute 0.00 10*3/uL LAB HEMATOLOGY METHOD 05/25/2025 3:11 AM EST [facility] Neutrophils Absolute 121.13(H) 1.60 - 6.10 10*3/uL LAB HEMATOLOGY METHOD 05/25/2025 3:11 AM EST [facility] Lymphocytes Absolute 0.00(L) 1.20 - 3.90 10*3/uL LAB HEMATOLOGY METHOD 05/25/2025 3:11 AM EST [facility] Reactive Lymphocytes Absolute 0.00 10*3/uL LAB HEMATOLOGY METHOD 05/25/2025 3:11 AM EST [facility] Monocytes Absolute 9.53(H) 0.30 - 0.90 10*3/uL LAB HEMATOLOGY METHOD 05/25/2025 3:11 AM EST [facility] Eosinophils Absolute 4.08(H) 0.00 - 0.50 10*3/uL LAB HEMATOLOGY METHOD 05/25/2025 3:11 AM EST [facility] Basophils Absolute 1.36(H) 0.00 - 0.10 10*3/uL LAB HEMATOLOGY METHOD 05/25/2025 3:11 AM EST [facility] Blood Venous blood specimen / Unknown Venipuncture / Unknown 05/25/2025 2:10 AM EST 05/25/2025 2:21 AM EST us Erika Solorzano MD LAB BLOOD ORDERABLES Final Result [facility] [address] [place] [address] * (ABNORMAL) Renal function panel (05/25/2025 2:10 AM EST) Glucose, Plasma 89 74 - 99 mg/dL 05/25/2025 2:45 AM EST [facility] BUN, Plasma 36(H) 8 - 23 mg/dL 05/25/2025 2:45 AM EST [facility] Creatinine, Plasma 2.24(H) 0.70 - 1.20 mg/dL 05/25/2025 2:45 AM EST [facility] BUN/Creatinine Ratio 16 05/25/2025 2:45 AM EST [facility] Sodium, Plasma 133(L) 136 - 145 mmol/L 05/25/2025 2:45 AM EST [facility] Potassium, Plasma 5.7(H) 3.6 - 4.9 mmol/L 05/25/2025 2:45 AM EST [facility] Chloride, Plasma 97 97 - 107 mmol/L 05/25/2025 2:45 AM EST [facility] CO2, Plasma 22 22 - 29 mmol/L 05/25/2025 2:45 AM EST [facility] Anion Gap 14 6 - 16 mmol/L 05/25/2025 2:45 AM EST [facility] Total Calcium, Plasma 8.6(L) 8.9 - 10.2 mg/dL 05/25/2025 2:45 AM EST [facility] Phosphorus, Plasma 3.6 2.5 - 4.5 mg/dL 05/25/2025 2:45 AM EST [facility] Albumin, Plasma 3.3(L) 3.5 - 5.2 g/dL 05/25/2025 2:45 AM EST [facility] eGFRcr 30.0 mL/min/1.7 3m*2 05/25/2025 2:45 AM EST [facility] Comment:Reported eGFRcr in m L/min/1.73m2 is based the CKD-EPI 2020 equation that does not use a race coefficient. Blood Venous blood specimen / Unknown Venipuncture / Unknown 05/25/2025 2:10 AM EST 05/25/2025 2:16 AM EST us Erika Solorzano MD LAB BLOOD ORDERABLES Final Result [facility] [address] [place] [address] * (ABNORMAL) CBC and differential (05/25/2025 2:10 AM EST) WBC Count 136.10(HH) 3.70 - 10.30 10*3/uL LAB HEMATOLOGY METHOD 05/25/2025 3:11 AM EST [facility] RBC Count 6.18(H) 4.60 - 6.10 10*6/uL LAB HEMATOLOGY METHOD 05/25/2025 3:11 AM EST [facility] HGB 14.6 13.7 - 17.5 g/dL LAB HEMATOLOGY METHOD 05/25/2025 3:11 AM EST [facility] HCT 47.6 40.0 - 51.0 % LAB HEMATOLOGY METHOD 05/25/2025 3:11 AM EST [facility] Platelet Count 100(L) 155 - 369 10*3/uL LAB HEMATOLOGY METHOD 05/25/2025 3:11 AM EST [facility] MCV 77(L) 79 - 98 fL LAB HEMATOLOGY METHOD 05/25/2025 3:11 AM EST [facility] MCH 23.6(L) 26.0 - 32.0 pg LAB HEMATOLOGY METHOD 05/25/2025 3:11 AM EST [facility] MCHC 30.7 30.7 - 35.5 g/dL LAB HEMATOLOGY METHOD 05/25/2025 3:11 AM [facility] RDW 25.8(H) 11.5 - 14.5 % LAB HEMATOLOGY METHOD 05/25/2025 3:11 AM EST [facility] MPV LAB HEMATOLOGY METHOD 05/25/2025 3:11 AM EST [facility] Comment:Not Measured nRBC 21.2(H) <=0.0 per 100 WBCs LAB HEMATOLOGY METHOD 05/25/2025 3:11 AM [facility] Differential Type Manual LAB HEMATOLOGY METHOD 05/25/2025 3:11 AM [facility] Blood Venous blood specimen / Unknown Venipuncture / Unknown 05/25/2025 2:10 AM EST 05/25/2025 2:21 AM EST [facility] - 05/25/2025 3:11 AM EST Therapeutic decision making should be based on absolute values, rather than percentages. The previously reported component Neutrophils % is no longer being reported.The previously reported component Lymphocytes % is no longer being reported.The previously reported component Monocytes % is no longer being reported.The previously reported component Eosinophils % is no longer being reported.The previously reported component Basophils % is no longer being reported.The previously reported component Immature Granulocytes % is no longer being reported.The previously reported component Absolute Neutrophils is no longer being reported.The previously reported component Absolute Lymphocytes is no longer being reported.The previously reported component Absolute Monocytes is no longer being reported.The previously reported component Absolute Eosinophils is no longer being reported.The previously reported component Absolute Basophils is no longer being reported.The previously reported component Absolute Immature Granulocytes is no longer being reported. us Erika Solorzano MD LAB BLOOD ORDERABLES Final Result [facility] [address] [place] [address] * (ABNORMAL) Renal function panel (05/23/2025 8:23 AM EST) Glucose, Plasma 130(H) 74 - 99 mg/dL 05/23/2025 9:15 AM EST [facility] BUN, Plasma 35(H) 8 - 23 mg/dL 05/23/2025 9:15 AM EST [facility] Creatinine, Plasma 2.18(H) 0.70 - 1.20 mg/dL 05/23/2025 9:15 AM EST [facility] BUN/Creatinine Ratio 16 05/23/2025 9:15 AM EST [facility] Sodium, Plasma 136 136 - 145 mmol/L 05/23/2025 9:15 AM EST [facility] Potassium, Plasma 4.6 3.6 - 4.9 mmol/L 05/23/2025 9:15 AM EST [facility] Chloride, Plasma 99 97 - 107 mmol/L 05/23/2025 9:15 AM EST [facility] CO2, Plasma 24 22 - 29 mmol/L 05/23/2025 9:15 AM EST [facility] Anion Gap 13 6 - 16 mmol/L 05/23/2025 9:15 AM EST [facility] Total Calcium, Plasma 8.8(L) 8.9 - 10.2 mg/dL 05/23/2025 9:15 AM EST [facility] Phosphorus, Plasma 3.5 2.5 - 4.5 mg/dL 05/23/2025 9:15 AM EST [facility] Albumin, Plasma 3.3(L) 3.5 - 5.2 g/dL 05/23/2025 9:15 AM EST [facility] eGFRcr 31.0 mL/min/1.7 3m*2 05/23/2025 9:15 AM EST [facility] Comment:Reported eGFRcr in m L/min/1.73m2 is based the CKD-EPI 2020 equation that does not use a race coefficient. Blood Venous blood specimen / Unknown Venipuncture / Unknown 05/23/2025 8:23 AM EST 05/23/2025 8:46 AM EST Erika Solorzano MD LAB BLOOD ORDERABLES Final Result Performing Organization Address City/[facility]/ZIP Co de Phone Number [facility] [address] [place] [address] * (ABNORMAL) Lactate Dehydrogenase, Plasma (05/22/2025 4:12 AM EST) LDH, Plasma 774(H) 116 - 250 U/L 05/22/2025 4:53 AM EST [facility] Comment:Hemolyzed, result ma y be falsely increased. Blood Venous blood specimen / Unknown Venipuncture / Unknown 05/22/2025 4:12 AM EST 05/22/2025 4:20 AM EST Susanne Duke MD LAB BLOOD ORDERABLES Final Resu lt Performing Organization Address [facility] Co de Phone Number [facility] [address] [place] [address] * (ABNORMAL) Uric Acid, Plasma (05/22/2025 4:12 AM EST) Uric Acid, Plasma 13.5(H) 3.7 - 8.0 mg/dL 05/22/2025 4:[address] [facility] Blood Venous blood specimen / Unknown Venipuncture / Unknown 05/22/2025 4:12 AM EST 05/22/2025 4:20 AM EST Susanne Duke MD LAB BLOOD ORDERABLES Final Resu lt Performing Organization Address City/[facility]/ZIP Co de Phone Number [facility] [address] [place] [address] * Phosphorus, Plasma (05/22/2025 4:12 AM EST) Phosphorus, Plasma 4.0 2.5 - 4.5 mg/dL 05/22/2025 4:53 AM EST [facility] Blood Venous blood specimen / Unknown Venipuncture / Unknown 05/22/2025 4:12 AM EST 05/22/2025 4:20 AM EST us Susanne Duke MD LAB BLOOD ORDERABLES Final Resu lt [facility] [address] [place] [address] * US Abdomen Doppler Limited (05/21/2025 4:36 PM EST) Anatomical Region Laterality Modality Abdomen Ultrasound Impressions 05/21/2025 4:50 PM EST Patent imaged portal vein. CRITICAL RESULT: No. COMMUNICATION: Per this written report. Drafted by Ashlee Jha MD on 05/21/2025 4:49 PM Final report signed by Ashlee Jha MD on 05/21/2025 4:50 PM Narrative 05/21/2025 4:50 PM EST CLINICAL INDICATION: assess for portal vein thromboosis TECHNIQUE: Limited color Doppler and spectral waveform images of the hepatic vasculature. COMPARISON: None. FINDINGS: Portal vein: There is antegrade flow within the main portal vein with a velocity of 17 cm/sec. Hepatic veins: The imaged right and left hepatic veins are patent. Procedure Note Ashlee Jha MD - 05/21/2025 CLINICAL INDICATION: assess for portal vein thromboosis TECHNIQUE: Limited color Doppler and spectral waveform images of the hepaticvasculature. COMPARISON: None. FINDINGS: Portal vein: There is antegrade flow within the main portal vein with avelocity of 17 cm/sec. Hepatic veins: The imaged right and left hepatic veins are patent. IMPRESSION: Patent imaged portal vein. CRITICAL RESULT: No. COMMUNICATION: Per this written report. Drafted by Ashlee Jha MD on 05/21/2025 4:49 PM Final report signed by Ashlee Jha MD on 05/21/2025 4:50 PM us Erika Solorzano MD IMG US PROCEDURES Final Res ult * (ABNORMAL) Morphology (05/21/2025 4:56 AM EST) RBC Fragments/Schist ocytes Slight(A) (none) LAB HEMATOLOGY METHOD 05/21/2025 6:19 AM EST [facility] Polychromasia Slight LAB HEMATOLOGY METHOD 05/21/2025 6:19 AM EST [facility] Echinocytes Present LAB HEMATOLOGY METHOD 05/21/2025 6:19 AM EST [facility] Gonzalez-Sutcliffe Bodies Present LAB HEMATOLOGY METHOD 05/21/2025 6:19 AM EST [facility] RBC Morphology Slide Reviewed LAB HEMATOLOGY METHOD 05/21/2025 6:19 AM EST [facility] Target Cells Present LAB HEMATOLOGY METHOD 05/21/2025 6:19 AM EST [facility] Platelet Estimate Platelet smear estimate consistent with automated count LAB HEMATOLOGY METHOD 05/21/2025 6:19 AM EST [facility] Blood Venous blood specimen / Unknown Venipuncture / Unknown 05/21/2025 4:56 AM EST 05/21/2025 5:04 AM EST us Susanne Duke MD LAB BLOOD ORDERABLES Final Resu lt [facility] [address] [place] [address] * (ABNORMAL) Manual Differential (05/21/2025 4:56 AM EST) Blasts % 0 % LAB HEMATOLOGY METHOD 05/21/2025 6:19 AM EST [facility] Promyelocytes % 0 % LAB HEMATOLOGY METHOD 05/21/2025 6:19 AM EST [facility] Myelocytes % 3 % LAB HEMATOLOGY METHOD 05/21/2025 6:19 AM EST [facility] Metamyelocytes % 8 % LAB HEMATOLOGY METHOD 05/21/2025 6:19 AM EST [facility] Neutrophils % 54 % LAB HEMATOLOGY METHOD 05/21/2025 6:19 AM EST [facility] Lymphocytes % 10 % LAB HEMATOLOGY METHOD 05/21/2025 6:19 AM EST [facility] Reactive Lymphocytes % 0 % LAB HEMATOLOGY METHOD 05/21/2025 6:19 AM EST [facility] Monocytes % 10 % LAB HEMATOLOGY METHOD 05/21/2025 6:19 AM EST [facility] Eosinophils % 12 % LAB HEMATOLOGY METHOD 05/21/2025 6:19 AM EST [facility] Basophils % 3 % LAB HEMATOLOGY METHOD 05/21/2025 6:19 AM EST [facility] Blasts Absolute 0.00 10*3/UL LAB HEMATOLOGY METHOD 05/21/2025 6:19 AM EST [facility] Promyelocytes Absolute 0.00 10*3/uL LAB HEMATOLOGY METHOD 05/21/2025 6:19 AM EST [facility] Myelocytes Absolute 1.65 10*3/uL LAB HEMATOLOGY METHOD 05/21/2025 6:19 AM EST [facility] Metamyelocytes Absolute 4.39 10*3/uL LAB HEMATOLOGY METHOD 05/21/2025 6:19 AM EST [facility] Neutrophils Absolute 29.62(H) 1.60 - 6.10 10*3/uL LAB HEMATOLOGY METHOD 05/21/2025 6:19 AM EST [facility] Lymphocytes Absolute 5.49(H) 1.20 - 3.90 10*3/uL LAB HEMATOLOGY METHOD 05/21/2025 6:19 AM EST [facility] Reactive Lymphocytes Absolute 0.00 10*3/uL LAB HEMATOLOGY METHOD 05/21/2025 6:19 AM EST [facility] Monocytes Absolute 5.49(H) 0.30 - 0.90 10*3/uL LAB HEMATOLOGY METHOD 05/21/2025 6:19 AM EST [facility] Eosinophils Absolute 6.58(H) 0.00 - 0.50 10*3/uL LAB HEMATOLOGY METHOD 05/21/2025 6:19 AM EST [facility] Basophils Absolute 1.65(H) 0.00 - 0.10 10*3/uL LAB HEMATOLOGY METHOD 05/21/2025 6:19 AM EST [facility] Blood Venous blood specimen / Unknown Venipuncture / Unknown 05/21/2025 4:56 AM EST 05/21/2025 5:04 AM EST us Susanne Duke MD LAB BLOOD ORDERABLES Final Resu lt [facility] [address] [place] [address] * (ABNORMAL) Lactate Dehydrogenase, Plasma (05/21/2025 4:56 AM EST) LDH, Plasma 706(H) 116 - 250 U/L 05/21/2025 5:36 AM EST [facility] Comment:Hemolyzed, result ma y be falsely increased. Blood Venous blood specimen / Unknown Venipuncture / Unknown 05/21/2025 4:56 AM EST 05/21/2025 5:03 AM EST Susanne Duke MD LAB BLOOD ORDERABLES Final Resu lt Performing Organization Address City/[facility]/ZIP Co de Phone Number [facility] [address] [place] [address] * (ABNORMAL) Uric Acid, Plasma (05/21/2025 4:56 AM EST) Uric Acid, Plasma 14.2(H) 3.7 - 8.0 mg/dL 05/21/2025 5:[address] [facility] Blood Venous blood specimen / Unknown Venipuncture / Unknown 05/21/2025 4:56 AM EST 05/21/2025 5:03 AM EST Susanne Duke MD LAB BLOOD ORDERABLES Final Resu lt Performing Organization Address City/[facility]/ZIP Co de Phone Number [facility] [address] [place] [address] * (ABNORMAL) Phosphorus, Plasma (05/21/2025 4:56 AM EST) Phosphorus, Plasma 5.0(H) 2.5 - 4.5 mg/dL 05/21/2025 5:36 AM EST [facility] Blood Venous blood specimen / Unknown Venipuncture / Unknown 05/21/2025 4:56 AM EST 05/21/2025 5:03 AM EST Susanne Duke MD LAB BLOOD ORDERABLES Final Resu lt Performing Organization Address City/[facility]/ZIP Co de Phone Number [facility] [address] [place] [address] * Ferritin, Serum (05/21/2025 4:56 AM EST) Ferritin, Serum 88 20 - 400 ng/mL 05/21/2025 5:41 AM EST [facility] Blood Venous blood specimen / Unknown Venipuncture / Unknown 05/21/2025 4:56 AM EST 05/21/2025 5:03 AM EST us Susanne Duke MD LAB BLOOD ORDERABLES Final Resu lt [facility] [address] [place] [address] * (ABNORMAL) Iron & Total Iron Binding Capacity, Plasma (Includes Transferrin) (05/21/2025 4:56 AM EST) Iron, Plasma 8(L) 50 - 170 ug/dL 05/21/2025 5:36 AM EST [facility] Transferrin, Plasma 249 200 - 360 mg/dL 05/21/2025 5:36 AM EST [facility] Total Iron Binding Capacity, Plasma 311 240 - 450 ug/mL 05/21/2025 5:36 AM EST [facility] Transferrin Saturation 3(L) 14 - 50 % 05/21/2025 5:36 AM EST [facility] Blood Venous blood specimen / Unknown Venipuncture / Unknown 05/21/2025 4:56 AM EST 05/21/2025 5:03 AM EST us Susanne Duke MD LAB BLOOD ORDERABLES Final Resu lt [facility] [address] [place] [address] * Lactate, venous (05/21/2025 4:56 AM EST) Lactate, Venous, Whole Blood 1.6 0.5 - 2.2 mmol/L LAB HEMATOLOGY METHOD 05/21/2025 5:04 AM EST [facility] Blood Venous blood specimen / Unknown Venipuncture / Unknown 05/21/2025 4:56 AM EST 05/21/2025 5:02 AM EST us Susanne Duke MD LAB BLOOD ORDERABLES Final Resu lt Performing Organization Address City/[facility]/ZIP Co de Phone Number [facility] [address] [place] [address] * (ABNORMAL) PT/INR (05/21/2025 4:56 AM EST) Prothrombin Time 16.8(H) 12.0 - 14.3 sec LAB COAGULATION METHOD 05/21/2025 5:41 AM EST [facility] INR 1.3(H) 0.9 - 1.1 LAB COAGULATION METHOD 05/21/2025 5:41 AM EST [facility] Blood Venous blood specimen / Unknown Venipuncture / Unknown 05/21/2025 4:56 AM EST 05/21/2025 5:11 AM EST Narrative [facility] - 05/21/2025 5:41 AM EST OPTIMAL INR RANGES FOR PATIENT ON ORAL ANTICOAGULANT THERAPY Prevention of venous thromboembolism INR 2.0 to 3.0 In patients with heart disease: Atrial fibrillation INR 2.0 to 3.0 Valvular heart disease INR 2.0 to 3.0 Tissue heart valves INR 2.0 to 3.0 Mechanical prosthetic valves INR 2.5 to 3.5 Prevention of recurrent RI INR 2.5 to 3.5 us Susanne Duke MD LAB BLOOD ORDERABLES Final Resu lt Performing Organization Address City/[facility]/ZIP Co de Phone Number [facility] [address] [place] [address] * Magnesium, Plasma (05/21/2025 4:56 AM EST) Magnesium, Plasma 2.3 1.9 - 2.4 mg/dL 05/21/2025 5:36 AM EST [facility] Blood Venous blood specimen / Unknown Venipuncture / Unknown 05/21/2025 4:56 AM EST 05/21/2025 5:03 AM EST Susanne Duke MD LAB BLOOD ORDERABLES Final Resu lt [facility] [address] [place] [address] * (ABNORMAL) Comprehensive metabolic panel (05/21/2025 4:56 AM EST) Glucose, Plasma 77 74 - 99 mg/dL 05/21/2025 5:36 AM EST [facility] BUN, Plasma 42(H) 8 - 23 mg/dL 05/21/2025 5:36 AM EST [facility] Creatinine, Plasma 2.29(H) 0.70 - 1.20 mg/dL 05/21/2025 5:36 AM EST [facility] BUN/Creatinine Ratio 18 05/21/2025 5:36 AM EST [facility] Sodium, Plasma 138 136 - 145 mmol/L 05/21/2025 5:36 AM EST [facility] Potassium, Plasma 4.8 3.6 - 4.9 mmol/L 05/21/2025 5:36 AM EST [facility] Chloride, Plasma 101 97 - 107 mmol/L 05/21/2025 5:36 AM EST [facility] CO2, Plasma 22 22 - 29 mmol/L 05/21/2025 5:36 AM EST [facility] Anion Gap 15 6 - 16 mmol/L 05/21/2025 5:36 AM EST [facility] Total Calcium, Plasma 8.4(L) 8.9 - 10.2 mg/dL 05/21/2025 5:36 AM EST [facility] Total Protein 6.3 6.3 - 7.9 g/dL 05/21/2025 5:36 AM EST [facility] Albumin, Plasma 3.4(L) 3.5 - 5.2 g/dL 05/21/2025 5:36 AM EST [facility] AST, Plasma 52(H) 10 - 50 U/L 05/21/2025 5:36 AM EST [facility] Comment:Hemolyzed, result ma y be falsely increased. ALT, Plasma 21 10 - 50 U/L 05/21/2025 5:36 AM EST [facility] Alkaline Phosphatase, Plasma 324(H) 40 - 115 U/L 05/21/2025 5:36 AM EST [facility] Total Bilirubin, Plasma 1.2(H) 0.2 - 1.1 mg/dL 05/21/2025 5:36 AM EST [facility] eGFRcr 29.2 mL/min/1.7 3m*2 05/21/2025 5:36 AM EST [facility] Comment:Reported eGFRcr in m L/min/1.73m2 is based the CKD-EPI 2020 equation that does not use a race coefficient. Blood Venous blood specimen / Unknown Venipuncture / Unknown 05/21/2025 4:56 AM EST 05/21/2025 5:03 AM EST us Susanne Duke MD LAB BLOOD ORDERABLES Final Resu lt [facility] [address] [place] [address] * (ABNORMAL) CBC and Differential (05/21/2025 4:56 AM EST) WBC Count 54.86(H) 3.70 - 10.30 10*3/uL LAB HEMATOLOGY METHOD 05/21/2025 6:19 AM EST [facility] RBC Count 6.24(H) 4.60 - 6.10 10*6/uL LAB HEMATOLOGY METHOD 05/21/2025 6:19 AM EST [facility] HGB 14.2 13.7 - 17.5 g/dL LAB HEMATOLOGY METHOD 05/21/2025 6:19 AM EST [facility] HCT 47.7 40.0 - 51.0 % LAB HEMATOLOGY METHOD 05/21/2025 6:19 AM EST [facility] Platelet Count 158 155 - 369 10*3/uL LAB HEMATOLOGY METHOD 05/21/2025 6:19 AM EST [facility] MCV 76(L) 79 - 98 fL LAB HEMATOLOGY METHOD 05/21/2025 6:19 AM EST [facility] MCH 22.8(L) 26.0 - 32.0 pg LAB HEMATOLOGY METHOD 05/21/2025 6:19 AM EST [facility] MCHC 29.8(L) 30.7 - 35.5 g/dL LAB HEMATOLOGY METHOD 05/21/2025 6:19 AM EST [facility] RDW 27.3(H) 11.5 - 14.5 % LAB HEMATOLOGY METHOD 05/21/2025 6:19 AM EST [facility] MPV LAB HEMATOLOGY METHOD 05/21/2025 6:19 AM EST [facility] Comment:Not Measured nRBC 19.3(H) <=0.0 per 100 WBCs LAB HEMATOLOGY METHOD 05/21/2025 6:19 AM EST [facility] Differential Type Manual LAB HEMATOLOGY METHOD 05/21/2025 6:19 AM EST [facility] Blood Venous blood specimen / Unknown Venipuncture / Unknown 05/21/2025 4:56 AM EST 05/21/2025 5:04 AM EST Narrative [facility] - 05/21/2025 6:19 AM EST Therapeutic decision making should be based on absolute values, rather than percentages. The previously reported component Neutrophils % is no longer being reported.The previously reported component Lymphocytes % is no longer being reported.The previously reported component Monocytes % is no longer being reported.The previously reported component Eosinophils % is no longer being reported.The previously reported component Basophils % is no longer being reported.The previously reported component Immature Granulocytes % is no longer being reported.The previously reported component Absolute Neutrophils is no longer being reported.The previously reported component Absolute Lymphocytes is no longer being reported.The previously reported component Absolute Monocytes is no longer being reported.The previously reported component Absolute Eosinophils is no longer being reported.The previously reported component Absolute Basophils is no longer being reported.The previously reported component Absolute Immature Granulocytes is no longer being reported. us Susanne Duke MD LAB BLOOD ORDERABLES Final Resu lt [facility] [address] [place] [address] * US Liver Screen (05/20/2025 7:41 PM EST) Anatomical Region Laterality Modality Abdomen, Liver Ultrasound Impressions 05/20/2025 8:17 PM EST Mild coarsened hepatic echotexture suggestive of some degree of underlying chronic parenchymal disease. Cholelithiasis. Ascites. CRITICAL RESULT: No. COMMUNICATION: Per this written report. Drafted by Ashlee Jha MD on 05/20/2025 8:15 PM Final report signed by Ashlee Jha MD on 05/20/2025 8:17 PM Narrative 05/20/2025 8:17 PM EST CLINICAL INDICATION: ?cirrhosis TECHNIQUE: Focused static and cine grayscale ultrasound images of portions of the abdomen were obtained COMPARISON: None. FINDINGS: Hepatic parenchyma is mildly coarsened in echotexture. Hepatic surface is smooth. No discrete mass in the visible portions of the liver. The gallbladder is contracted containing small stones. Other: There is small volume ascites. Procedure Note Ashlee Jha MD - 05/20/2025 CLINICAL INDICATION: ?cirrhosis TECHNIQUE: Focused static and cine grayscale ultrasound images of portions of theabdomen were obtained COMPARISON: None. FINDINGS: Hepatic parenchyma is mildly coarsened in echotexture. Hepatic surface issmooth. No discrete mass in the visible portions of the liver. Thegallbladder is contracted containing small stones. Other: There is small volume ascites. IMPRESSION: Mild coarsened hepatic echotexture suggestive of some degree of underlyingchronic parenchymal disease. Cholelithiasis. Ascites. CRITICAL RESULT: No. COMMUNICATION: Per this written report. Drafted by Ashlee Jha MD on 05/20/2025 8:15 PM Final report signed by Ashlee Jha MD on 05/20/2025 8:17 PM Susanne Duke MD IMG US PROCEDURES Final Result * (ABNORMAL) Lactate Dehydrogenase, Plasma (05/20/2025 5:57 PM EST) LDH, Plasma 950(H) 116 - 250 U/L 05/20/2025 6:32 PM EST [facility] Comment:Hemolyzed, result ma y be falsely increased. Blood Venous blood specimen / Unknown Venipuncture / Unknown 05/20/2025 5:57 PM EST 05/20/2025 6:04 PM EST Susanne Duke MD LAB BLOOD ORDERABLES Final Resu lt [facility] [address] [place] [address] * (ABNORMAL) Uric Acid, Plasma (05/20/2025 5:57 PM EST) Uric Acid, Plasma 12.8(H) 3.7 - 8.0 mg/dL 05/20/2025 6:32 PM EST [facility] Blood Venous blood specimen / Unknown Venipuncture / Unknown 05/20/2025 5:57 PM EST 05/20/2025 6:04 PM EST Susanne Duke MD LAB BLOOD ORDERABLES Final Resu lt Performing Organization Address [facility]/ZIP Co de Phone Number [facility] [address] [place] [address] * (ABNORMAL) Phosphorus, Plasma (05/20/2025 5:57 PM EST) Phosphorus, Plasma 4.7(H) 2.5 - 4.5 mg/dL 05/20/2025 6:32 PM EST [facility] Blood Venous blood specimen / Unknown Venipuncture / Unknown 05/20/2025 5:57 PM EST 05/20/2025 6:04 PM EST Susanne Duke MD LAB BLOOD ORDERABLES Final Resu lt Performing Organization Address [facility]/[place] [address] * XR Panorex (05/20/2025 5:35 PM EST) Anatomical Region Laterality Modality Jaw region Panoramic X-Ray Impressions 05/21/2025 8:02 AM EST Limited examination due to artifacts. Within the limitations, there is no definite evidence of a periapical abscess. Significant carious erosion of the left mandibular first molar. CRITICAL RESULT: No. COMMUNICATION: Per this written report. Drafted by Maria D Colby MD on 05/21/2025 8:00 AM Final report signed by Maria D Colby MD on 05/21/2025 8:02 AM Narrative 05/21/2025 8:02 AM EST CLINICAL INDICATION: Left tooth pain TECHNIQUE: XR PANOREX COMPARISON: None. FINDINGS: Significant blurring artifact along the central face. Within the limitations of the exam, no periapical lucency is identified to suggest abscess. Significant carious erosion of the left mandibular first molar. Multiple teeth with dental amalgam. Procedure Note Maria D Colby MD - 05/21/2025 CLINICAL INDICATION: Left tooth pain TECHNIQUE: XR PANOREX COMPARISON: None. FINDINGS: Significant blurring artifact along the central face. Within thelimitations of the exam, no periapical lucency is identified to suggestabscess. Significant carious erosion of the left mandibular first molar.Multiple teeth with dental amalgam. IMPRESSION: Limited examination due to artifacts. Within the limitations, there is nodefinite evidence of a periapical abscess. Significant carious erosion of the left mandibular first molar. CRITICAL RESULT: No. COMMUNICATION: Per this written report. Drafted by Maria D Colby MD on 05/21/2025 8:00 AM Final report signed by Maria D Colby MD on 05/21/2025 8:02 AM us Susanne Duke MD IMG XR PROCEDURES Final Result * XR Chest 1 View (05/20/2025 4:38 PM EST) Anatomical Region Laterality Modality Chest Digital Radiogra phy Impressions 05/20/2025 5:04 PM EST Mild bilateral interstitial opacities could represent vascular congestion or inflammation/infection. CRITICAL RESULT: No COMMUNICATION: Per this written report. Drafted by Ashlee Jha MD on 05/20/2025 4:59 PM Final report signed by Ashlee Jha MD on 05/20/2025 5:04 PM Narrative 05/20/2025 5:04 PM EST CLINICAL INDICATION: R/o infection TECHNIQUE: XR CHEST 1 VIEW COMPARISON: 03/25/2025 FINDINGS: The cardiomediastinal silhouette is stable. Increased mild bilateral interstitial opacities. No discrete focal consolidation or enlarging effusion. Procedure Note Ashlee Jha MD - 05/20/2025 CLINICAL INDICATION: R/o infection TECHNIQUE: XR CHEST 1 VIEW COMPARISON: 03/25/2025 FINDINGS: The cardiomediastinal silhouette is stable. Increased mild bilateralinterstitial opacities. No discrete focal consolidation or enlargingeffusion. IMPRESSION: Mild bilateral interstitial opacities could represent vascular congestionor inflammation/infection. CRITICAL RESULT: No COMMUNICATION: Per this written report. Drafted by Ashlee Jha MD on 05/20/2025 4:59 PM Final report signed by Ashlee Jha MD on 05/20/2025 5:04 PM Susanne Duke MD IMG XR PROCEDURES Final Result * Urine Hewitt Panel (05/20/2025 3:53 PM EST) Extra Reflex urine culture not indicated 05/21/2025 1:03 AM EST [facility] Comment: Previously prelim verified as Specimen evaluation in progress on 05/20/2025 at 1801 EST. Previously prelim verified as Specimen evaluation in progress on 05/20/2025 at 1901 EST. Previously prelim verified as Specimen evaluation in progress on 05/20/2025 at 2001 EST. Previously prelim verified as Specimen evaluation in progress on 05/20/2025 at 2101 EST. Previously prelim verified as Specimen evaluation in progress on 05/20/2025 at 2201 EST. Previously prelim verified as Specimen evaluation in progress on 05/20/2025 at 2301 EST. Previously prelim verified as Specimen evaluation in progress on 05/21/2025 at 0001 EST. Urine Urine specimen obtained by clean catch procedure / Unknown Non-blood Collection / Unknown 05/20/2025 3:53 PM EST 05/20/2025 4:39 PM EST Susanne Duke MD LAB URINE ORDERABLES Final Resu lt [facility] [address] [place] [address] * (ABNORMAL) Urinalysis with reflex microscopic (Culture NOT Included) (05/20/2025 3:53 PM EST) Color, Urine Yellow LAB URINALYSIS - AUTOMATED METHOD 05/20/2025 3:59 PM EST [facility] Clarity, Urine Clear LAB URINALYSIS - AUTOMATED METHOD 05/20/2025 3:59 PM EST [facility] Spec [place], Urine 1.021 1.005 - 1.030 LAB URINALYSIS - AUTOMATED METHOD 05/20/2025 3:59 PM EST [facility] pH, Urine 6.0 5.0 - 8.0 LAB URINALYSIS - AUTOMATED METHOD 05/20/2025 3:59 PM EST [facility] Protein, Urine 100(A) Negative mg/dL LAB URINALYSIS - AUTOMATED METHOD 05/20/2025 3:59 PM EST [facility] Glucose, Urine 500(A) Negative mg/dL LAB URINALYSIS - AUTOMATED METHOD 05/20/2025 3:59 PM EST [facility] Ketones, Urine Negative Negative mg/dL LAB URINALYSIS - AUTOMATED METHOD 05/20/2025 3:59 PM EST [facility] Blood, Urine Negative Negative LAB URINALYSIS - AUTOMATED METHOD 05/20/2025 3:59 PM EST [facility] Bilirubin, Urine Negative Negative LAB URINALYSIS - AUTOMATED METHOD 05/20/2025 3:59 PM EST [facility] Urobilinogen, Urine 1.0 0.2 to 1.0 mg/dL LAB URINALYSIS - AUTOMATED METHOD 05/20/2025 3:59 PM EST [facility] Leukocytes, Urine Negative Negative LAB URINALYSIS - AUTOMATED METHOD 05/20/2025 3:59 PM EST [facility] Nitrite, Urine Negative Negative LAB URINALYSIS - AUTOMATED METHOD 05/20/2025 3:59 PM EST [facility] Urine Urine specimen obtained by clean catch procedure / Unknown Non-blood Collection / Unknown 05/20/2025 3:53 PM EST 05/20/2025 3:56 PM EST us Susanne Duke MD LAB URINE ORDERABLES Final Resu lt [facility] [address] [place] [address] * Morphology (05/20/2025 1:59 PM EST) Blood Venous blood specimen / Unknown Venipuncture / Unknown 05/20/2025 1:59 PM EST 05/20/2025 2:16 PM EST us Garret Bai MD LAB BLOOD ORDERABLES Final Resul t [facility] [address] [place] [address] * (ABNORMAL) Manual Differential (05/20/2025 1:59 PM EST) Blasts % 0 % LAB HEMATOLOGY METHOD 05/20/2025 5:09 PM EST [facility] Promyelocytes % 1 % LAB HEMATOLOGY METHOD 05/20/2025 5:09 PM EST [facility] Myelocytes % 8 % LAB HEMATOLOGY METHOD 05/20/2025 5:09 PM EST [facility] Metamyelocytes % 3 % LAB HEMATOLOGY METHOD 05/20/2025 5:09 PM EST [facility] Neutrophils % 69 % LAB HEMATOLOGY METHOD 05/20/2025 5:09 PM EST [facility] Lymphocytes % 6 % LAB HEMATOLOGY METHOD 05/20/2025 5:09 PM EST [facility] Reactive Lymphocytes % 0 % LAB HEMATOLOGY METHOD 05/20/2025 5:09 PM EST [facility] Monocytes % 7 % LAB HEMATOLOGY METHOD 05/20/2025 5:09 PM EST [facility] Eosinophils % 3 % LAB HEMATOLOGY METHOD 05/20/2025 5:09 PM EST [facility] Basophils % 3 % LAB HEMATOLOGY METHOD 05/20/2025 5:09 PM EST [facility] Blasts Absolute 0.00 10*3/UL LAB HEMATOLOGY METHOD 05/20/2025 5:09 PM EST [facility] Promyelocytes Absolute 0.57 10*3/uL LAB HEMATOLOGY METHOD 05/20/2025 5:09 PM EST [facility] Myelocytes Absolute 4.58 10*3/uL LAB HEMATOLOGY METHOD 05/20/2025 5:09 PM EST [facility] Metamyelocytes Absolute 1.72 10*3/uL LAB HEMATOLOGY METHOD 05/20/2025 5:09 PM EST [facility] Neutrophils Absolute 39.52(H) 1.60 - 6.10 10*3/uL LAB HEMATOLOGY METHOD 05/20/2025 5:09 PM EST [facility] Lymphocytes Absolute 3.44 1.20 - 3.90 10*3/uL LAB HEMATOLOGY METHOD 05/20/2025 5:09 PM EST [facility] Reactive Lymphocytes Absolute 0.00 10*3/uL LAB HEMATOLOGY METHOD 05/20/2025 5:09 PM EST [facility] Monocytes Absolute 4.01(H) 0.30 - 0.90 10*3/uL LAB HEMATOLOGY METHOD 05/20/2025 5:09 PM EST [facility] Eosinophils Absolute 1.72(H) 0.00 - 0.50 10*3/uL LAB HEMATOLOGY METHOD 05/20/2025 5:09 PM EST [facility] Basophils Absolute 1.72(H) 0.00 - 0.10 10*3/uL LAB HEMATOLOGY METHOD 05/20/2025 5:09 PM EST [facility] Blood Venous blood specimen / Unknown Venipuncture / Unknown 05/20/2025 1:59 PM EST 05/20/2025 2:16 PM EST Garret Bai MD LAB BLOOD ORDERABLES Final Resul t [facility] [address] [place] [address] * (ABNORMAL) GGT (05/20/2025 1:59 PM EST) GGT, Plasma 158(H) 8 - 61 U/L 05/20/2025 5:27 PM EST [facility] Blood Venous blood specimen / Unknown Venipuncture / Unknown 05/20/2025 1:59 PM EST 05/20/2025 2:17 PM EST Susanne Duke MD LAB BLOOD ORDERABLES Final Resu lt [facility] [address] [place] [address] * (ABNORMAL) N-Terminal Probnp (05/20/2025 1:59 PM EST) N-Terminal, PROBNP, Plasma 2,775(H) 0 - 899 pg/mL 05/20/2025 4:50 PM EST [facility] Blood Venous blood specimen / Unknown Venipuncture / Unknown 05/20/2025 1:59 PM EST 05/20/2025 2:17 PM EST Susanne Duke MD LAB BLOOD ORDERABLES Final Resu lt Performing Organization Address [facility]/ZIP Co de Phone Number [facility] [address] [place] [address] * (ABNORMAL) Lipase (05/20/2025 1:59 PM EST) Lipase, Plasma 151(H) 19 - 63 U/L 05/20/2025 4:50 PM EST [facility] Blood Venous blood specimen / Unknown Venipuncture / Unknown 05/20/2025 1:59 PM EST 05/20/2025 2:17 PM EST Susanne Duke MD LAB BLOOD ORDERABLES Final Resu lt Performing Organization Address [facility]/ZIP Co de Phone Number [facility] [address] [place] [address] * Ammonia (05/20/2025 1:59 PM EST) Ammonia 51 11 - 51 umol/L 05/20/2025 2:48 PM EST [facility] Blood Venous blood specimen / Unknown Venipuncture / Unknown 05/20/2025 1:59 PM EST 05/20/2025 2:26 PM EST Garret Bai MD LAB BLOOD ORDERABLES Final Resul t Performing Organization Address City/[facility]/ZIP Co de Phone Number [facility] [address] [place] [address] * Blood Culture (Aerobic/Anaerobet Set) (05/20/2025 1:59 PM EST) Culture No growth at day 5 05/25/2025 3:01 PM EST [facility] Blood Structure of right forearm / Unknown Venipuncture / Unknown 05/20/2025 1:59 PM EST 05/20/2025 2:32 PM EST us Garret Bai MD LAB MICROBIOLOGY - GENERAL ORDER DMITRI Final Result [facility] [address] [place] [address] * Blood Culture (Aerobic/Anaerobet Set) (05/20/2025 1:59 PM EST) Culture No growth at day 5 05/25/2025 3:01 PM EST [facility] Blood Structure of left forearm / Unknown Venipuncture / Unknown 05/20/2025 1:59 PM EST 05/20/2025 2:31 PM EST us Garret Bai MD LAB MICROBIOLOGY - GENERAL ORDER DMITRI Final Result Performing Organization Address City/[facility]/ZIP Co de Phone Number [facility] [address] [place] [address] * (ABNORMAL) CBC w/diff (05/20/2025 1:59 PM EST) WBC Count 57.28(H) 3.70 - 10.30 10*3/uL LAB HEMATOLOGY METHOD 05/20/2025 5:09 PM EST [facility] RBC Count 5.53 4.60 - 6.10 10*6/uL LAB HEMATOLOGY METHOD 05/20/2025 5:09 PM EST [facility] HGB 12.7(L) 13.7 - 17.5 g/dL LAB HEMATOLOGY METHOD 05/20/2025 5:09 PM EST [facility] HCT 42.4 40.0 - 51.0 % LAB HEMATOLOGY METHOD 05/20/2025 5:09 PM EST [facility] Platelet Count 156 155 - 369 10*3/uL LAB HEMATOLOGY METHOD 05/20/2025 5:09 PM EST [facility] MCV 77(L) 79 - 98 fL LAB HEMATOLOGY METHOD 05/20/2025 5:09 PM EST [facility] MCH 23.0(L) 26.0 - 32.0 pg LAB HEMATOLOGY METHOD 05/20/2025 5:09 PM EST [facility] MCHC 29.8(L) 30.7 - 35.5 g/dL LAB HEMATOLOGY METHOD 05/20/2025 5:09 PM EST [facility] RDW 26.4(H) 11.5 - 14.5 % LAB HEMATOLOGY METHOD 05/20/2025 5:09 PM EST [facility] MPV LAB HEMATOLOGY METHOD 05/20/2025 5:09 PM EST [facility] Comment:Not Measured nRBC 20.7(H) <=0.0 per 100 WBCs LAB HEMATOLOGY METHOD 05/20/2025 5:09 PM EST [facility] Differential Type Manual LAB HEMATOLOGY METHOD 05/20/2025 5:09 PM EST [facility] Blood Venous blood specimen / Unknown Venipuncture / Unknown 05/20/2025 1:59 PM EST 05/20/2025 2:16 PM EST Narrative [facility] - 05/20/2025 5:09 PM EST Therapeutic decision making should be based on absolute values, rather than percentages. The previously reported component Neutrophils % is no longer being reported.The previously reported component Lymphocytes % is no longer being reported.The previously reported component Monocytes % is no longer being reported.The previously reported component Eosinophils % is no longer being reported.The previously reported component Basophils % is no longer being reported.The previously reported component Immature Granulocytes % is no longer being reported.The previously reported component Absolute Neutrophils is no longer being reported.The previously reported component Absolute Lymphocytes is no longer being reported.The previously reported component Absolute Monocytes is no longer being reported.The previously reported component Absolute Eosinophils is no longer being reported.The previously reported component Absolute Basophils is no longer being reported.The previously reported component Absolute Immature Granulocytes is no longer being reported. us Garret Bai MD LAB BLOOD ORDERABLES Final Resul t [facility] [address] [place] [address] * (ABNORMAL) CMP (05/20/2025 1:59 PM EST) Glucose, Plasma 98 74 - 99 mg/dL 05/20/2025 3:25 PM EST [facility] BUN, Plasma 46(H) 8 - 23 mg/dL 05/20/2025 3:25 PM EST [facility] Creatinine, Plasma 2.18(H) 0.70 - 1.20 mg/dL 05/20/2025 3:25 PM EST [facility] BUN/Creatinine Ratio 21 05/20/2025 3:25 PM EST [facility] Sodium, Plasma 136 136 - 145 mmol/L 05/20/2025 3:25 PM EST [facility] Potassium, Plasma 4.5 3.6 - 4.9 mmol/L 05/20/2025 3:25 PM EST [facility] Chloride, Plasma 102 97 - 107 mmol/L 05/20/2025 3:25 PM EST [facility] CO2, Plasma 23 22 - 29 mmol/L 05/20/2025 3:25 PM EST [facility] Anion Gap 11 6 - 16 mmol/L 05/20/2025 3:25 PM EST [facility] Total Calcium, Plasma 8.3(L) 8.9 - 10.2 mg/dL 05/20/2025 3:25 PM EST [facility] Total Protein 6.3 6.3 - 7.9 g/dL 05/20/2025 3:25 PM EST [facility] Albumin, Plasma 3.2(L) 3.5 - 5.2 g/dL 05/20/2025 3:25 PM EST [facility] AST, Plasma 47 10 - 50 U/L 05/20/2025 3:25 PM EST [facility] ALT, Plasma 19 10 - 50 U/L 05/20/2025 3:25 PM EST [facility] Alkaline Phosphatase, Plasma 309(H) 40 - 115 U/L 05/20/2025 3:25 PM [facility] Total Bilirubin, Plasma 1.6(H) 0.2 - 1.1 mg/dL 05/20/2025 3:25 PM EST [facility] eGFRcr 31.0 mL/min/1.7 3m*2 05/20/2025 3:25 PM EST [facility] Comment:Reported eGFRcr in m L/min/1.73m2 is based the CKD-EPI 2020 equation that does not use a race coefficient. Blood Venous blood specimen / Unknown Venipuncture / Unknown 05/20/2025 1:59 PM EST 05/20/2025 2:17 PM EST Garret Bai MD LAB BLOOD ORDERABLES Final Resul t [facility] [address] [place] [address] * ECG Adult (05/20/2025 11:07 AM EST) EKG DIAGNOSIS CLASS Abnormal MUSE ECG Ventricular Rate 83 BPM MUSE ECG Atrial Rate 83 BPM MUSE ECG CA Interval 180 ms MUSE ECG QRSD Interval 96 ms MUSE ECG QT Interval 390 ms MUSE ECG QTC Interval 458 ms MUSE ECG P [place] 62 degrees MUSE ECG R [place] 33 degrees MUSE ECG T [place] 9 degrees MUSE ECG Diagnosis Normal sinus rhythm MUSE ECG Diagnosis Anterior infarct , age undetermined MUSE ECG Diagnosis Abnormal ECG MUSE ECG Diagnosis MUSE ECG Diagnosis Confirmed by Julio Kowalski ([id number]) on 05/20/2025 1:55:36 PM MUSE ECG 05/20/2025 11:0 7 AM EST 05/20/2025 1:55 PM EST Susanne Duke MD ECG ORDERABLES Final Result Performing Organization Address City/[facility]/ZIP Co de Phone Number MUSE ECG * Body Fluid Culture and Gram Stain (05/18/2025 1:21 PM EST) Culture No growth at day 4 2024 11:37 AM EST [facility] Gram Stain Result Moderate Polymorphonuclear leukocytes 05/23/2025 11:37 AM EST [facility] Gram Stain Result No organisms seen 05/23/2025 11:37 AM EST [facility] Ascites Body fluid specimen / Unknown 05/18/2025 1:21 PM EST 05/20/2025 3:47 PM EST Susanne Duke MD LAB MICROBIOLOGY - GENERAL ORDE RABLES Final Result [facility] [address] [place] [address] documented in this encounter Visit Diagnoses Diagnosis SBP (spontaneous bacterial peritonitis)- Primary Spontaneous bacterial peritonitis SBP (spontaneous bacterial peritonitis) Spontaneous bacterial peritonitis Paroxysmal atrial fibrillation (CMS/HCC) Atrial fibrillation Nonrheumatic mitral (valve) insufficiency 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 Mixed dyslipidemia Lumbosacral radiculopathy Thoracic or lumbosacral neuritis or radiculitis, unspecified Generalized weakness Gastro-esophageal reflux disease without esophagitis Coronary artery disease involving [place] coronary artery of [place] heart without angina pectoris Chronic kidney disease, stage 4 (severe) (CMS/HCC) ACC/AHA stage C chronic systolic heart failure documented in this encounter Admitting Diagnoses Diagnosis SBP (spontaneous bacterial peritonitis) Spontaneous bacterial peritonitis documented in this encounter Administered Medications Inactive Administered Medications - up to 3 most recent administrations Medication Order MAR Action Action Date Dose Rate Site acetaminophen (Tylenol) tablet 500 mg 500 mg, Oral, Every 8 hours PRN, Starting on Ban 05/20/25 at 1521, Until Sat05/28/25 at 1326, Routine, Mild Plus Pain with CPOT DVPRS FLACC PAINAD NPASS NRS Benz-Quintero Faces score of 1 or greater OR NIPS score 2 or greater Given 05/27/2025 2:24 PM EST 500 mg Given 05/27/2025 5:58 AM EST 500 mg Given 05/25/2025 5:08 PM EST 500 mg albuterol (Proventil) (2.5 MG/3ML) 0.083% nebulizer solution 10 mg 10 mg, Nebulization, Once, 1 dose, On Sat05/26/25 at 0815, Routine Given 05/26/2025 8:15 AM EST 10 mg amoxicillin-clavulanate (Augmentin) 875-125 MG per tablet 1 tablet 1 tablet (875 mg), Oral, Every 12 hours, 11 doses, First dose on Sat05/26/25 at 1800, Last dose on Sat05/31/25 at 1800, RoutineIndications:Odontogenic Infection Given 05/28/2025 5:54 AM EST 1 t ablet Given 05/27/2025 5:11 PM EST 1 tablet Given 05/27/2025 5:58 AM EST 1 tablet bumetanide (Bumex) injection 1 mg 1 mg, Intravenous, Once, 1 dose, On Ban 05/20/25 at 1620, Routine Given 05/20/2025 5:52 PM EST 1 mg bumetanide (Bumex) injection 1 mg 1 mg, Intravenous, Once, 1 dose, On Sat05/21/25 at 1200, Routine Given 05/21/2025 12:16 PM EST 1 mg bumetanide (Bumex) injection 1 mg 1 mg, Intravenous, Once, 1 dose, On 05/22/25 at 0915, Routine Given 05/22/2025 8:59 AM EST 1 mg bumetanide (Bumex) tablet 1 mg 1 mg, Oral, Daily, First dose on Sat05/23/25 at 0900, Until Discontinued, Routine Given 05/28/2025 8:09 AM EST 1 mg Given 05/27/2025 8:22 AM EST 1 mg Given 05/26/2025 8:04 AM EST 1 mg cefTRIAXone (Rocephin) 2 g in sodium chloride 0.9% 100 mL IVPB (vial adapter required) 2 g, Intravenous, Once, 1 dose, On Ban 05/20/25 at 1310, STAT New Bag 05/20/2025 2:03 PM EST 2 g 220 mL/h r cefTRIAXone (Rocephin) 2 g in sodium chloride 0.9% 100 mL IVPB (vial adapter required) 2 g, Intravenous, Every 24 hours, 2 doses, First dose on Sat05/21/25 at 0900, Last dose on Sat05/22/25 at 0900, Routine New Bag 05/22/2025 8:59 AM EST 2 g 220 mL/hr New Bag 05/21/2025 9:00 AM EST 2 g 220 mL/hr ciprofloxacin (Cipro) tablet 500 mg 500 mg, Oral, 2 times daily, 4 doses, First dose (after last modification) on 05/23/25 at 0900, Last dose on Sat05/24/25 at 2100, Routine Given 05/24/2025 7:59 PM EST 500 mg Given 05/24/2025 9:14 AM EST 500 mg Given 05/23/2025 8:35 PM EST 500 mg ciprofloxacin (Cipro) tablet 500 mg 500 mg, Oral, Daily, First dose (after last modification) on Sat05/25/25 at 0900, Until Discontinued, Routine Given 05/28/2025 8:16 AM EST 500 mg Given 05/27/2025 8:22 AM EST 500 mg Given 05/26/2025 8:04 AM EST 500 mg dextrose 10 % (D10W) bolus 125 mL 125 mL, Intravenous, Every 15 min PRN, Starting on Sat05/28/25 at 0648, Until Sat05/28/25 at 1247, Administer over 15 Minutes, Routine, low blood sugar BG 51-89 mg/dL dextrose 10 % (D10W) bolus 250 mL 250 mL (25 g), Intravenous, Once, 1 dose, On Sat05/26/25 at 0815, Administer over 30 Minutes, Routine New Bag 05/26/2025 8:11 AM EST 250 mL 500 mL/hr dextrose 10 % (D10W) bolus 250 mL 250 mL (25 g), Intravenous, Once, 1 dose, On Sat05/28/25 at 0745, Administer over 30 Minutes, Routine New Bag 05/28/2025 8:06 AM EST 250 mL 500 mL/hr dextrose 10 % (D10W) bolus 250 mL 250 mL, Intravenous, Every 15 min PRN, Starting on Sat05/28/25 at 0648, Until Sat05/28/25 at 1247, Administer over 15 Minutes, Routine, PRN low blood sugar BG =/<50 mg/dL diphenhydrAMINE-zinc acetate (Benadryl) cream 1 Application Topical, 3 times daily PRN, Starting on Sat05/22/25 at 1121, Until Sat05/28/25 at 1326, Routine, itching Given 05/22/2025 1:47 PM EST 1 Application ferrous sulfate EC tablet 324 mg 324 mg, Oral, Every other day, First dose on Sat05/21/25 at 0900, Until Discontinued, Routine Given 05/27/2025 8:22 AM EST 324 mg Given 05/25/2025 8:55 AM EST 324 mg Given 05/23/2025 8:23 AM EST 324 mg gabapentin (Neurontin) capsule 300 mg 300 mg, Oral, 3 times daily, First dose on Sat05/22/25 at 0930, Until Discontinued, Routine Given 05/28/2025 8:09 AM EST 300 mg Given 05/27/2025 8:39 PM EST 300 mg Given 05/27/2025 5:11 PM EST 300 mg gabapentin (Neurontin) capsule 800 mg 800 mg, Oral, Once, 1 dose, On Sat05/21/25 at 2045, Routine Given 05/21/2025 8:39 PM EST 800 mg glucagon (human recombinant) injection 1 mg 1 mg, Intramuscular, Every 15 min PRN, Starting on Sat05/28/25 at 0648, Until Sat05/28/25 at 1247, Routine, low blood sugar per Hypoglycemia Prevention and Treatment protocol glucose (Glutose) 40 % oral gel 15 grams of glucose 15 grams of glucose, Sublingual, Every 15 min PRN, Starting on Sat05/28/25 at 0648, Until Sat05/28/25 at 1247, Routine, low blood sugar, per Hypoglycemia Prevention and Treatment protocol heparin (porcine) injection 5,000 Units 5,000 Units, Subcutaneous, Every 8 hours scheduled, First dose on Sat05/21/25 at 0600, Until Discontinued, Routine Given 05/28/2025 5:54 AM EST 5,000 Units Right Lower Abdomen Given 05/27/2025 9:00 PM EST 5,000 Units L eft Lower Abdomen Given 05/27/2025 1:29 PM EST 5,000 Units L eft Lower Abdomen HYDROcodone-acetaminophen (Hycet) 7.5-325 MG/15ML solution 5 mg of hydrocodone 5 mg of hydrocodone, Oral, Every 8 hours PRN, Starting on Ban 05/20/25 at 1548, Until 05/21/25 at 2142, Routine, Moderate Severe Pain with CPOT score of 3 or greater OR FLACC PAINAD NPASS NRS Benz-Quintero Faces score of 4 or greater OR DVPRS NIPS score of 5 or greater Given 05/21/2025 2:57 PM EST 5 mg of hydrocodone Given 05/21/2025 4:35 AM EST 5 mg of hydrocodone Given 05/20/2025 6:04 PM EST 5 mg of hydrocodone HYDROcodone-acetaminophen ([place]) 5-325 MG per tablet 10 mg of hydrocodone 10 mg of hydrocodone, Oral, Every 6 hours PRN, 2 doses, Starting on 05/21/25 at 2142, Until 05/22/25 at 0410, Routine, Moderate Severe Pain with CPOT score of 3 or greater OR FLACC PAINAD NPASS NRS Benz-Quintero Faces score of 4 or greater OR DVPRS NIPS score of 5 or greater Given 05/22/2025 4:10 AM EST 10 mg of hydrocodone Given 05/21/2025 10:12 PM EST 10 mg of hydrocodone HYDROcodone-acetaminophen ([place]) 5-325 MG per tablet 10 mg of hydrocodone 10 mg of hydrocodone, Oral, Every 6 hours PRN, Starting on Sat05/22/25 at 0809, Until Sat05/28/25 at 1326, Routine, Moderate Severe Pain with CPOT score of 3 or greater OR FLACC PAINAD NPASS NRS Benz-Quintero Faces score of 4 or greater OR DVPRS NIPS score of 5 or greater Given 05/28/2025 5:59 AM EST 10 mg of hydrocodone Given 05/27/2025 8:40 PM EST 10 mg of hydrocodone Given 05/27/2025 2:24 PM EST 10 mg of hydrocodone insulin regular (HumuLIN R,NovoLIN R) 100 UNIT/ML injection 5 Units 5 Units, Intravenous, Once, 1 dose, On Sat05/26/25 at 0815, RoutineIndications:Hyperkalemia Given 05/26/2025 8:13 AM EST 5 Units insulin regular (HumuLIN R,NovoLIN R) 100 UNIT/ML injection 5 Units 5 Units, Intravenous, Once, 1 dose, On Sat05/28/25 at 0745, RoutineIndications:Hyperkalemia Given 05/28/2025 8:05 AM EST 5 Units iron sucrose (Venofer) injection 200 mg 200 mg, Intravenous, Daily, Administer undiluted by IV push over 2 to 5 minutes, First dose on Sat05/21/25 at 1545, For 5 days Given 05/25/2025 9:00 AM EST 200 mg Given 05/24/2025 9:13 AM EST 200 mg Given 05/23/2025 8:21 AM EST 200 mg ondansetron (Zofran) 4 MG/5ML solution 4 mg 4 mg, Oral, Every 6 hours PRN, Starting on Ban 05/20/25 at 1522, Until Sat05/28/25 at 1326, Routine, nausea, vomiting ondansetron (Zofran) injection 4 mg 4 mg, Intravenous, Every 6 hours PRN, Starting on Ban 05/20/25 at 1522, Until Sat05/28/25 at 1326, Routine, vomiting, nausea ondansetron ODT (Zofran-ODT) disintegrating tablet 4 mg 4 mg, Oral, Every 6 hours PRN, Starting on Sat05/20/25 at 1522, Until Sat05/28/25 at 1326, Routine, nausea, vomiting polyethylene glycol (Miralax) packet 17 g 17 g, Oral, 2 times daily, First dose on Sat05/21/25 at 1130, Until Discontinued, Routine Given 05/28/2025 8:09 AM EST 17 g Given 05/27/2025 8:40 PM EST 17 g Given 05/27/2025 8:22 AM EST 17 g rosuvastatin (Crestor) tablet 10 mg 10 mg, Oral, Nightly, First dose on Sat05/20/25 at 2100, Until Discontinued Given 05/27/2025 8:39 PM EST 10 mg Given 05/26/2025 8:07 PM EST 10 mg Given 05/25/2025 8:28 PM EST 10 mg senna (Senokot) tablet 8.6 mg 8.6 mg, Oral, Nightly, First dose on Sat05/20/25 at 2100, Until Discontinued, Routine Given 05/21/2025 8:3 9 PM EST 8.6 mg Given 05/20/2025 8:53 PM EST 8.6 mg senna-docusate (Claritza-Colace) 8.6-50 MG per tablet 2 tablet 2 tablet, Oral, 2 times daily, First dose on Sat05/22/25 at 1145, Until Discontinued, Routine Given 05/28/2025 8:09 AM EST 2 tablets Given 05/27/2025 8:40 PM EST 2 tablets Given 05/27/2025 8:22 AM EST 2 tablets sodium bicarbonate 50 mEq in dextrose 5 % 100 mL IVPB 50 mEq, Intravenous, Once, 1 dose, On Sat05/26/25 at 0815, at 100 mL/hr, Administer over 60 Minutes, STAT New Bag 05/26/2025 8:11 AM EST 50 mEq 100 mL/hr sodium chloride 0.9 % bolus 500 mL 500 mL, Intravenous, Once, 1 dose, On Sat05/26/25 at 0815, Administer over 180 Minutes, Routine New Bag 05/26/2025 8:55 AM EST 500 mL 166.7 mL/hr sodium chloride 0.9 % flush 10 mL 10 mL, Intravenous, Every 12 hours, First dose on 05/20/25 at 1525, Until Discontinued, Routine Given 05/28/2025 8:18 AM EST 10 mL Given 05/27/2025 8:40 PM EST 10 mL Given 05/27/2025 8:22 AM EST 10 mL sodium chloride 0.9 % flush 10 mL 10 mL, Intravenous, As needed, Starting on Ban 05/20/25 at 1520, Until Sat05/28/25 at 1326, Routine, line care Given 05/24/2025 7:57 PM EST 10 mL sodium zirconium cyclosilicate (Lokelma) packet 10 g 10 g, Oral, Once, 1 dose, On Sat05/28/25 at 0745, Routine Given 05/28/2025 8:08 AM EST 10 g tranexamic acid (Cyklokapron) 50 mg/mL oral rinse 10 mL 10 mL, Oral, Once, 1 dose, On Sat05/26/25 at 0100, Routine Given 05/26/2025 12:36 AM EST 10 mL tranexamic acid (Cyklokapron) 50 mg/mL oral rinse 10 mL 10 mL, Oral, 3 times daily PRN, Starting on Sat05/26/25 at 0111, Until Sat05/28/25 at 1326, Routine, tooth extraction documented in this encounter Active and Recently Administered Medications Times are shown in EST. Scheduled Medication Order 05/26/2025 05/27/2025 05/28/2025 albuterol (Proventil) (2.5 MG/3ML) 0.083% nebulizer solution 10 mg (COMPLETED) 10 mg, Nebulization, Once, 1 dose, On Sat05/26/25 at 0815, Routine 0815 (Given - Provider: Candido Byrd) amoxicillin-clavulanate (Augmentin) 875-125 MG per tablet 1 tablet 1 tablet (875 mg), Oral, Every 12 hours, 11 doses, First dose on Sat05/26/25 at 1800, Last dose on Sat05/31/25 at 1800, Routine 1704 (Given - Provider: Murtaza Couch RN) 0558 (Given - Provider: Desiree De Oliveira RN)1711 (Given - Provider: Machelle Molina RN) 0554 (Given - Provider: Akanksha Molina RN) bumetanide (Bumex) tablet 1 mg 1 mg, Oral, Daily, First dose on Sat05/23/25 at 0900, Until Discontinued, Routine 0804 (Given - Provider: Murtaza Couch RN) 08 (Given - Provider: Machelle Molina RN) 0809 (Given - Provider: Saadia Lazcano RN) ciprofloxacin (Cipro) tablet 500 mg(Linked Group 1) 500 mg, Oral, Daily, First dose (after last modification) on Sat05/25/25 at 0900, Until Discontinued, Routine 0804 (Given - Provider: Murtaza Couch RN) 0822 (Given - Provider: Machelle Molina RN) 0816 (Given - Provider: Saadia Lazcano, DEANNA) dextrose 10 % (D10W) bolus 250 mL (COMPLETED) 250 mL (25 g), Intravenous, Once, 1 dose, On Sat05/26/25 at 0815, Administer over 30 Minutes, Routine 0811 (New Bag - Provider: Murtaza Couch RN) dextrose 10 % (D10W) bolus 250 mL (COMPLETED) 250 mL (25 g), Intravenous, Once, 1 dose, On Sat05/28/25 at 0745, Administer over 30 Minutes, Routine 0806 (New Bag - Provider: Saadia Lazcano RN) ferrous sulfate EC tablet 324 mg 324 mg, Oral, Every other day, First dose on Sat05/21/25 at 0900, Until Discontinued, Routine 08 (Given - Provider: Machelle Molina RN) gabapentin (Neurontin) capsule 300 mg 300 mg, Oral, 3 times daily, First dose on Sat05/22/25 at 0930, Until Discontinued, Routine 08 (Given - Provider: Murtaza Couch RN)1616 (Given - Provider: Murtaza Couch RN)2007 (Given - Provider: Desiree De Oliveira RN) 08 (Given - Provider: Machelle Molina RN)171 (Given - Provider: Machelle Molina RN)203 (Given - Provider: Akanksha Molina RN) 0809 (Given - Provider: Saadia Lazcano RN) heparin (porcine) injection 5,000 Units 5,000 Units, Subcutaneous, Every 8 hours scheduled, First dose on Sat05/21/25 at 0600, Until Discontinued, Routine 0600 (Dose Auto Held - Provider: Erika Solorzano MD)0718 (Unheld by provider - Provider: Daniel Corbett MD)1302 (Given - Provider: Murtaza Couch RN)2007 (Given - Provider: Desiree De Oliveira RN) 0559 (Given - Provider: Desiree De Oliveira RN)1329 (Given - Provider: Machelle Molina RN)2099 (Given - Provider: Akanksha Molina RN) 0554 (Given - Provider: Akanksha Molina RN) insulin regular (HumuLIN R,NovoLIN R) 100 UNIT/ML injection 5 Units (COMPLETED) 5 Units, Intravenous, Once, 1 dose, On Sat05/26/25 at 0815, Routine 08 (Given - Provider: Murtaza Couch RN) insulin regular (HumuLIN R,NovoLIN R) 100 UNIT/ML injection 5 Units (COMPLETED) 5 Units, Intravenous, Once, 1 dose, On Sat05/28/25 at 0745, Routine 08 (Given - Provider: Saadia Lazcano RN) polyethylene glycol (Miralax) packet 17 g 17 g, Oral, 2 times daily, First dose on Sat05/21/25 at 1130, Until Discontinued, Routine 08 (Given - Provider: Murtaza Couch RN)2007 (Given - Provider: Desiree De Oliveira RN) 08 (Given - Provider: Machelle Molina RN)2039 (Given - Provider: Akanksha Molina RN) 08 (Given - Provider: Saadia Lazcano RN) rosuvastatin (Crestor) tablet 10 mg 10 mg, Oral, Nightly, First dose on Ban 05/20/25 at 2100, Until Discontinued 2006 (Given - Provider: Desiree De Oliveira RN) 2038 (Given - Provider: Akanksha Molina RN) senna-docusate (Claritza-Colace) 8.6-50 MG per tablet 2 tablet 2 tablet, Oral, 2 times daily, First dose on Sat05/22/25 at 1145, Until Discontinued, Routine 0803 (Given - Provider: Murtaza Couch RN)2008 (Not Given - Provider: Desiree De Oliveira RN - Reason: Patient/Family/Repres entative Refused) 08 (Given - Provider: Machelle Molina RN)2039 (Given - Provider: Akanksha Molina, DEANNA) 0809 (Given - Provider: Saadia Lazcano RN) sodium bicarbonate 50 mEq in dextrose 5 % 100 mL IVPB (COMPLETED) 50 mEq, Intravenous, Once, 1 dose, On Sat05/26/25 at 0815, at 100 mL/hr, Administer over 60 Minutes, STAT 0811 (New Bag - Provider: Murtaza Couch, DEANNA) sodium chloride 0.9 % bolus 500 mL (COMPLETED) 500 mL, Intravenous, Once, 1 dose, On Sat05/26/25 at 0815, Administer over 180 Minutes, Routine 0855 (New Bag - Provider: Murtaza Couch RN) sodium chloride 0.9 % flush 10 mL(Linked Group 2) 10 mL, Intravenous, Every 12 hours, First dose on Ban 05/20/25 at 1525, Until Discontinued, Routine 0255 (Canceled Entry - Provider: Desiree De Oliveira RN)2008 (Canceled Entry - Provider: Desiree De Oliveira RN) 08 (Given - Provider: Machelle Molina RN)2039 (Given - Provider: Akanksha Molina RN) 0818 (Given - Provider: Saadia Lazcano RN) sodium zirconium cyclosilicate (Lokelma) packet 10 g (COMPLETED) 10 g, Oral, Once, 1 dose, On Sat05/28/25 at 0745, Routine 0808 (Given - Provider: Saadia Lazcano, DEANNA) tranexamic acid (Cyklokapron) 50 mg/mL oral rinse 10 mL (COMPLETED) 10 mL, Oral, Once, 1 dose, On Sat05/26/25 at 0100, Routine 0036 (Given - Provider: Desiree De Oliveira RN) PRN Medication Order 05/26/2025 05/27/2025 05/28/2025 acetaminophen (Tylenol) tablet 500 mg 500 mg, Oral, Every 8 hours PRN, Starting on Ban 05/20/25 at 1521, Until Sat05/28/25 at 1326, Routine, Mild Plus Pain with CPOT DVPRS FLACC PAINAD NPASS NRS Benz-Quintero Faces score of 1 or greater OR NIPS score 2 or greater 0637 (Not Given - Provider: Desiree De Oliveira RN - Reason: Hold for condition: must add comment - Comment: puts pt over 4,000mg per 24hr) 0558 (Given - Provider: Desiree De Oliveira RN)1424 (Given - Provider: Rebecca Minaya RN) dextrose 10 % (D10W) bolus 125 mL(Linked Group 3) 125 mL, Intravenous, Every 15 min PRN, Starting on Sat05/28/25 at 0648, Until Sat05/28/25 at 1247, Administer over 15 Minutes, Routine, low blood sugar BG 51-89 mg/dL dextrose 10 % (D10W) bolus 250 mL(Linked Group 3) 250 mL, Intravenous, Every 15 min PRN, Starting on Sat05/28/25 at 0648, Until Sat05/28/25 at 1247, Administer over 15 Minutes, Routine, PRN low blood sugar BG =/<50 mg/dL diphenhydrAMINE-zinc acetate (Benadryl) cream 1 Application Topical, 3 times daily PRN, Starting on 05/22/25 at 1121, Until Sat05/28/25 at 1326, Routine, itching glucagon (human recombinant) injection 1 mg(Linked Group 3) 1 mg, Intramuscular, Every 15 min PRN, Starting on Sat05/28/25 at 0648, Until Sat05/28/25 at 1247, Routine, low blood sugar per Hypoglycemia Prevention and Treatment protocol glucose (Glutose) 40 % oral gel 15 grams of glucose(Linked Group 3) 15 grams of glucose, Sublingual, Every 15 min PRN, Starting on Sat05/28/25 at 0648, Until Sat05/28/25 at 1247, Routine, low blood sugar, per Hypoglycemia Prevention and Treatment protocol HYDROcodone-acetaminophen ([place]) 5-325 MG per tablet 10 mg of hydrocodone 10 mg of hydrocodone, Oral, Every 6 hours PRN, Starting on 05/22/25 at 0809, Until Sat05/28/25 at 1326, Routine, Moderate Severe Pain with CPOT score of 3 or greater OR FLACC PAINAD NPASS NRS Benz-Quintero Faces score of 4 or greater OR DVPRS NIPS score of 5 or greater 0637 (Given - Provider: Desiree De Oliveira RN)1238 (Given - Provider: Murtaza Couch RN)2006 (Given - Provider: Desiree De Oliveira RN) 0559 (Given - Provider: Desiree De Oliveira RN)1423 (Given - Provider: Rebecca Minaya RN)2039 (Given - Provider: Akanksha Molina RN) 0559 (Given - Provider: Akanksha Molina RN) ondansetron (Zofran) 4 MG/5ML solution 4 mg(Linked Group 4) 4 mg, Oral, Every 6 hours PRN, Starting on Sat05/20/25 at 1522, Until Sat05/28/25 at 1326, Routine, nausea, vomiting ondansetron (Zofran) injection 4 mg(Linked Group 4) 4 mg, Intravenous, Every 6 hours PRN, Starting on Sat05/20/25 at 1522, Until Sat05/28/25 at 1326, Routine, vomiting, nausea ondansetron ODT (Zofran-ODT) disintegrating tablet 4 mg(Linked Group 4) 4 mg, Oral, Every 6 hours PRN, Starting on Sat05/20/25 at 1522, Until Sat05/28/25 at 1326, Routine, nausea, vomiting sodium chloride 0.9 % flush 10 mL(Linked Group 2) 10 mL, Intravenous, As needed, Starting on Sat05/20/25 at 1520, Until Sat05/28/25 at 1326, Routine, line care tranexamic acid (Cyklokapron) 50 mg/mL oral rinse 10 mL 10 mL, Oral, 3 times daily PRN, Starting on Sat05/26/25 at 0111, Until Sat05/28/25 at 1326, Routine, tooth extraction Linked Groups Order Group 1: ciprofloxacin (Cipro) tablet 500 mg (COMPLETED) 500 mg, Oral, 2 times daily, 4 doses, First dose (after last modification) on Sat05/23/25 at 0900, Last dose on Sat05/24/25 at 2100, Routine Followed by ciprofloxacin (Cipro) tablet 500 mgJump to med 500 mg, Oral, Daily, First dose (after last modification) on Sat05/25/25 at 0900, Until Discontinued, Routine Group 2: Insert peripheral IV (COMPLETED) Once, On Sat05/20/25 at 1521, For 1 occurrence And Saline lock IV (COMPLETED) Once, On Sat05/20/25 at 1521, For 1 occurrence And sodium chloride 0.9 % flush 10 mLJump to med 10 mL, Intravenous, Every 12 hours, First dose on Sat05/20/25 at 1525, Until Discontinued, Routine And sodium chloride 0.9 % flush 10 mLJump to med 10 mL, Intravenous, As needed, Starting on Sat05/20/25 at 1520, Until Sat05/28/25 at 1326, Routine, line care Group 3: glucose (Glutose) 40 % oral gel 15 grams of glucoseJump to med 15 grams of glucose, Sublingual, Every 15 min PRN, Starting on Sat05/28/25 at 0648, Until Sat05/28/25 at 1247, Routine, low blood sugar, per Hypoglycemia Prevention and Treatment protocol Or dextrose 10 % (D10W) bolus 125 mLJump to med 125 mL, Intravenous, Every 15 min PRN, Starting on Sat05/28/25 at 0648, Until Sat05/28/25 at 1247, Administer over 15 Minutes, Routine, low blood sugar BG 51-89 mg/dL Or dextrose 10 % (D10W) bolus 250 mLJump to med 250 mL, Intravenous, Every 15 min PRN, Starting on Sat05/28/25 at 0648, Until Sat05/28/25 at 1247, Administer over 15 Minutes, Routine, PRN low blood sugar BG =/<50 mg/dL Or glucagon (human recombinant) injection 1 mgJump to med 1 mg, Intramuscular, Every 15 min PRN, Starting on Sat05/28/25 at 0648, Until Sat05/28/25 at 1247, Routine, low blood sugar per Hypoglycemia Prevention and Treatment protocol Group 4: ondansetron ODT (Zofran-ODT) disintegrating tablet 4 mgJump to med 4 mg, Oral, Every 6 hours PRN, Starting on Sat05/20/25 at 1522, Until Sat05/28/25 at 1326, Routine, nausea, vomiting Or ondansetron (Zofran) injection 4 mgJump to med 4 mg, Intravenous, Every 6 hours PRN, Starting on Sat05/20/25 at 1522, Until Sat05/28/25 at 1326, Routine, vomiting, nausea Or ondansetron (Zofran) 4 MG/5ML solution 4 mgJump to med 4 mg, Oral, Every 6 hours PRN, Starting on Ban 05/20/25 at 1522, Until 05/28/25 at 1326, Routine, nausea, vomiting documented in this encounter Additional Health Concerns Assessment Noted Time PHQ-9 Depression Total Score: 8 02/06/20 8:29 AM EDT A fall risk assessment has been complete d for the patient 03/15/2025 10:46 AM EDT A Body Mass Index follow-up plan has been documented for the patient 05/28/2025 10:51 AM EST documented as of this encounter Care Teams 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
--- OUTSIDE RECORDS SUMMARY | 2025-05-25 14:00 | XMS_ITS | Encounter Summary ---
Author Organization Healthcare Address [address] [place] [address] Care Team Providers Care Manager Of Allied Health Services Name Role Phone Lee Collier MD Unavailable [phone] Debbie Medina MD Primary Care Provider + [phone] Kristopher Benitez RN Unavailable Unavailable Bekah Flores RN Unavailable Unavailable Reason for Visit * Auth/Cert (Routine) Specialty Diagnoses / Procedures Referred By Contac t Referred To Contact Diagnoses SBP (spontaneous bacterial peritonitis) Susanne Duke MD [address] [place] [address] Phone: tel: fax: [facility] Inpatient [address] [place] [address] Phone: tel: Referral ID Status Reason Start Date Expiration Date Visits Re quested Visits Authorized [id number] 1 1 Encounter Details Date Type Department Care Team (Late st Contact Info) Description 05/25/2025 2:00 PM EST [facility] [address] [place] [phone] Olga Nolasco [address] [place] [address] Caries (Primary Dx) Social History Tobacco Use Types Packs/Day Years [...] 10/16/2022 How often do you attend chur ch or sikh services? More than 4 times per year 10/16/2022 Do you belong to any clubs o r organizations such as jewish groups, unions, fraternal or athletic groups, or [...] any time in the past [facility], were you homeless or living in a penitentiary (including now)? 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[employer]) to steady your nerves or to get [...] Sign Reading Time Taken Comments Blood Pressure 106/66 05/25/2025 2:34 PM EST Pulse 88 05/25/2025 2:34 PM EST Temperature - - Respiratory Rate - - Oxygen Saturation - - Inhaled Oxygen Concentration - - Weight - - Height - - Body Mass Index - - documented in this encounter Functional Status * Dental Vitals Question Answer Date of Assessment Author BP 106/66 05/25/2025 2:34 PM EST Bebeto ta Walid K Pulse 88 05/25/2025 2:34 PM EST Bebeto ta, Walid K * Dental Vitals Question Answer Date of Assessment Author BP 106/66 05/25/2025 2:34 PM EST Bebeto ta, Walid K Pulse 88 05/25/2025 2:34 PM EST Bebeto ta Walid K documented as of this encounter Mental Status * Dental Vitals Question Answer Entry Date Author BP 106/66 05/25/2025 2:34 PM EST Bebeto ta, Walid K Pulse 88 05/25/2025 2:34 PM EST Bebeto ta, Walid K documented in this encounter Miscellaneous Notes * Progress Notes - Olga Nolasco - 05/25/2025 2:00 PM EST Adult Dentistry - [facility] Subjective: 75 y.o. male is a hospital patient presents for ext of #16,19 , patient was consulted by Dr. Haskins Objective: Visit Vitals BP 106/66 Pulse 88 Smoking Status Never Medical and dental hx reviewed. No changes Medications Ordered Prior to Encounter[1] Past Medical History[2] Surgical History[3] Social Drivers of Health Food Insecurity: No Food Insecurity (05/21/2025) Hunger Vital Sign Worried About Running Out of Food in the Last Year: Never true Ran Out of Food in the Last Year: Never true Alcohol Use: Low Risk (01/19/2025) CAGE ASSESSMENT Cage unable to access: Not on file Cage max number of drinks: Not on file Cage Beverages a week: Not on file Cage Questionnaire cut down: 0 Cage questionnaire annoyed: 0 Cage questionnaire guilty: 0 Cage questionnaire eye marketing planner: 0 Cage Overall score: 0 Housing Stability: Low Risk (05/21/2025) Housing Stability Vital Sign Unable to Pay for Housing in the Last Year: No Number of Times Moved in the Last Year: 0 Homeless in the Last Year: No Tobacco Use: Low Risk (05/20/2025) Patient History Smoking Tobacco Use: Never Smokeless Tobacco Use: Never Passive Exposure: Never Transportation Needs: No Transportation Needs (05/21/2025) PRAPARE - Transportation Lack of Transportation (Medical): No Lack of Transportation (Non-Medical): No Depression: Not at risk (02/05/2025) PHQ-2 PHQ-2 Score: 1 Recent Concern: Depression - Mild depression (02/05/2025) PHQ-9 PHQ-9 Score: 8 Utilities: Not At Risk (05/21/2025) [facility] Utilities Threatened with loss of utilities: No Stress: Not on file Intimate Partner Violence: Not At Risk (05/21/2025) Humiliation, Afraid, Rape, and Kick questionnaire Fear of Current or Ex-Partner: No Emotionally Abused: No Physically Abused: No Sexually Abused: No Physical Activity: Inactive (10/16/2022) Exercise Vital Sign Days of Exercise per Week: 0 days Minutes of Exercise per Session: 0 min Social Connections: Unknown (04/08/2023) Received from [facility] Family and Community Support Help with Day-to-Day Activities: Not on file Lonely or Isolated: Not on file Financial Resource Strain: Low Risk (03/20/2024) Overall Financial Resource Strain (CARDIA) Difficulty of Paying Living Expenses: Not hard at all Allergies[4] Dental Exam: Dental Soft Tissue Exam all soft tissues within normal limits (WNL), no lesions or abnormalities detected Dental Exam grossly decayed #16,19 Assessment: Non-restorable #16 and #19 Plan: Today: limited (problem focused) oral evaluation #16 and #19 extraction Tx-Rendered today: Completed limited oral exam. None acquired and reviewed. Findings documented in objective and assessment sections above. As of today, labs show that WBC I36.10 and ANC is 121.13, medical team consulted for medical clearance for dental procedure and DR. Daniel Corbett MD cleared the patient Medically, Dr. Corbett confirmed that the patient is premedicated with Cipro and I requested extending ABX for another good week.Dr. Sanchez confirmed Cipro extension. Findings discussed with patient, radiographs reviewed. Procedure, risks, benefits, alternatives andcomplications discussed. Opportunity was given for patient to ask questions. All questions answeredto patients apparent satisfaction. Explained to the patient the extension of their dental diseases. Patient agreed to the proposed tx plan Procedure, risks, benefits, alternatives and complication discussed with patient. Consent was obtained for ext #16 and #19. Pt was given Lidocaine 2% - Epi 1:100.000 UI: 68mg Lidocaine w/ 0.034 mg epi (2 carpules) Septocaine 4% - Epi 1:100.000 UI: 68 mg Septocaine w/ 0.017 mg epi (1 carpule) via Infiltration. Soft tissue reflected. Buccal bone #16 removed with surgical handpiece and sterile water irrigation. #16 and #19 was elevated and delivered with forceps. Jaxwnw91,19 was curetted and irrigated with sterile water. No sinus communication detected. Vicryl 4 - 0 chromic were placed. Pt was given verbal and written post-op instructions. Estimated blood loss: Minimal Pt was discharged with good hemostasis. NV: RTC for prn [1] Current Facility-Administered Medications on File Prior to Visit Medication Dose Route Frequency Provider Last Rate Last Admin acetaminophen (Tylenol) tablet 500 mg 500 mg Oral q8h PRN Susanne Duke MD 500 mg at 05/25/25 0855 bumetanide (Bumex) tablet 1 mg 1 mg Oral Daily Erika Solorzano MD 1 mg at 05/25/25 0857 [COMPLETED] ciprofloxacin (Cipro) tablet 500 mg 500 mg Oral BID Erika Solorzano MD 500 mg at 05/24/25 1959 Followed by ciprofloxacin (Cipro) tablet 500 mg 500 mg Oral Daily Erika Solorzano MD 500 mg at 05/25/25 0859 diphenhydrAMINE-zinc acetate (Benadryl) cream 1 Application 1 Application Topical TID PRN Erika Solorzano MD 1 Application at 05/22/25 1347 ferrous sulfate EC tablet 324 mg 324 mg Oral Every other day Susanne Duke MD 324 mg at 05/25/25 0855 gabapentin (Neurontin) capsule 300 mg 300 mg Oral TID Erika Solorzano MD 300 mg at 05/25/25 0854 [Held by provider] heparin (porcine) injection 5,000 Units 5,000 Units Subcutaneous q8h [facility] Susanne Duke MD 5,000 Units at 05/23/25 2222 HYDROcodone-acetaminophen (Hector) 5-325 MG per tablet 10 mg of hydrocodone 10 mg of hydrocodone Oral q6h PRN Erika Solorzano MD 10 mg of hydrocodone at 05/25/25 0855 [COMPLETED] iron sucrose (Venofer) injection 200 mg 200 mg Intravenous Daily Erika Solorzano MD200 mg at 05/25/25 0900 ondansetron ODT (Zofran-ODT) disintegrating tablet 4 mg 4 mg Oral q6h PRN Susanne Duke MD Or ondansetron (Zofran) injection 4 mg 4 mg Intravenous q6h PRN Susanne Duke MD Or ondansetron (Zofran) 4 MG/5ML solution 4 mg 4 mg Oral q6h PRN Susanne Duke MD polyethylene glycol (Miralax) packet 17 g 17 g Oral BID Erika Solorzano MD 17 g at 05/23/25 0822 rosuvastatin (Crestor) tablet 10 mg 10 mg Oral Nightly Susanne Duke MD 10 mg at 05/24/25 1956 senna-docusate (Claritza-Colace) 8.6-50 MG per tablet 2 tablet 2 tablet Oral BID Erika Solorzano MD2 tablet at 05/25/25 0857 sodium chloride 0.9 % flush 10 mL 10 mL Intravenous q12h Susanne Duke MD 10 mL at 05/24/25 1834 And sodium chloride 0.9 % flush 10 mL 10 mL Intravenous PRN Susanne Duke MD 10 mL at 05/24/25 1957 Current Outpatient Medications on File Prior to Visit Medication Sig Dispense Refill bumetanide (Bumex) 1 MG tablet Take 1 tablet by mouth daily. 30 tablet 0 empagliflozin (Jardiance) 10 MG Take 1 tablet by mouth daily. 30 tablet 3 ferrous sulfate 324 (65 Fe) MG EC tablet TAKE 1 TABLET BY MOUTH EVERY MORNING WITH BREAKFAST. DO NOT CHEW,CRUSH, OR SPLIT gabapentin (Neurontin) 800 MG tablet Take 0.5 tablets by mouth in the morning and 0.5 tablets before bedtime. (Patient taking differently: Take 1 tablet by mouth 4 times a day.) HYDROcodone-acetaminophen (Hector) 10-325 MG tablet Take 1 tablet by mouth 4 times a day as needed. Momelotinib Dihydrochloride 200 MG tablet Take 200 mg by mouth daily. 30 tablet 1 rosuvastatin (Crestor) 10 MG tablet Take 1 tablet by mouth nightly. 90 tablet 3 [DISCONTINUED] famotidine (Pepcid) 40 MG tablet Take 1 tablet by mouth every morning. [DISCONTINUED] mupirocin (Bactroban) 2 % ointment [DISCONTINUED] ondansetron ODT (Zofran-ODT) 4 MG disintegrating tablet Dissolve 1 tablet on the tongue every 8 hours as needed for nausea or vomiting. [2] Past Medical History: Diagnosis Date ACC/AHA stage [...] ~04/03 if appropriate; Will plan to remove ritchei post para and apply steri strips on 04/08 08/02 distention - Vaccines given on 03/24; will need additional vaccines in 8 weeks (~05/19) Mixed dyslipidemia Myeloproliferative disorder (CMS/HCC) 03/22/2023 Other cirrhosis of liver (CMS/HCC) 12/10/2022 Paroxysmal atrial fibrillation (CMS/HCC) Splenomegaly 03/18/2024 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, lumbar region 01/01/2024 Spontaneous bacterial peritonitis 06/04/2024 On ppx Cipro [3] Past Surgical History: Procedure Laterality Date PARACENTESIS biweekly via IR SPLENECTOMY [4] No Known Allergies Cosigned by Ambrose Lynn DMD at 05/25/2025 4:41 PM EST Associated attestation - Ambrose Lynn DMD - 05/25/2025 4:41 PM EST I reviewed the resident's dental note. I was physically present in the clinic and immediately available throughout the entire procedure to provide direct supervision. Ambrose Lynn DMD documented in this encounter Plan of Treatment Upcoming Encounters Date Type Department Care Team ([facility] st Contact Info) Description 07/05/2025 3:00 PM EST Clinical Support [facility] [address] [place] [phone] 07/05/2025 3:30 PM EST Office Visit [facility] [address] [phone] Vaishnavi Almaraz MD [address] [facility] [address] [phone] 09/13/2025 10:30 AM EDT Clinical Support [facility] [address] [place] [phone] 09/13/2025 11:00 AM EDT Office Visit [facility] [address] [place] [phone] Vaishnavi Almaraz MD [address] [facility] [address] [phone] documented as of this encounter Procedures Procedure Name Priority Date/Time Associated Diagnosis Comments 16 EXTRACTION, ERUPTED TOOTH REQUIRING REMOVAL OF BONE AND/OR SECTIONING OF TOOTH, AND INCLUDING ELEVATION OF MUCOPERIOSTEAL FLAP IF INDICATED Routine 05/25/2025 2:00 PM EST Caries 19 EXTRACTION, ERUPTED TOOTH OR EXPOSED ROOT (ELEVATION AND/OR FORCEPS REMOVAL) Routine 05/25/2025 2:00 PM EST Caries LIMITED ORAL EVALUATION - PROBLEM FOCUSED Routine 05/25/2025 2:00 PM EST Caries documented in this encounter Visit Diagnoses Diagnosis Caries- Primary documented in this encounter Additional Health Concerns Assessment Noted Time PHQ-9 Depression Total Score: 8 02/06/20 8:29 AM EDT A fall risk assessment has been complete d for the patient 03/15/2025 10:46 AM EDT A Body Mass Index follow-up plan has been documented for the patient 05/25/2025 4:37 PM EST documented as of this encounter Care Teams Manager Of Allied Health Services Relationship Specialty Start Date End Date Debbie Medina MD [address] [facility] [address] [place] [address] PCP - General 09/28/24 Lee Collier MD [address] [place] [phone] Internal Medicine 10/18/23 Kristpoher Benitez RN None None Registered Nurse Hematology and Oncology 03/15/25 Bekah Flores RN None None Registered Nurse 05/25/25 documented as of this encounter
--- OUTSIDE RECORDS SUMMARY | 2025-06-17 16:17 | XMS_ITS | Encounter Summary ---
Author Organization Healthcare Address [address] [place] [address] Care Team Providers Care Can Marker Name Role Phone Lee Collier MD Unavailable [phone] Debbie Medina MD Primary Care Provider + [phone] Kristopher Benitez RN Unavailable Unavailable Bekah Flores RN Unavailable Unavailable Reason for Visit * Reason Comments Shortness of Breath Swelling * Auth/Cert (Routine) Specialty Diagnoses / Procedures Referred By Contac t Referred To Contact Diagnoses Heart failure Viktoria Glynn MD [address] [place] [address] Phone: tel: fax: [facility] [address] [place] [address] Phone: tel: Referral ID Status Reason Start Date Expiration Date Visits Re quested Visits Authorized [id number] 1 1 Encounter Details Date Type Department Care Team (Latest Contact Info) Description 06/17/2025 4:17 PM EST - 06/25/2025 5:20 PM EST Hospital Encounter [facility] [address] [place] [address] Peter Hamilton MD [address] [place] [address] Prsahant Ma MD [address] [place] [address] Viktoria Glynn MD [address] [place] [address] Sherly Malik MD [address] [place] [address] Shortness of breath (Primary Dx); Other ascites; SBP (spontaneous bacterial peritonitis) Discharge Disposition: Home or Self Care Social [...] Never 10/16/2022 How often do you attend [facility] or pentecostalism services? More than 4 times per year 10/16/2022 Do you belong to any clubs o r organizations such as anglican groups, unions, fraternal or athletic groups, or [...] afraid of your partner or ex-partner? No 06/18/2025 Within the last year, have y ou been humiliated or emotionally abused in other ways by your partner or ex-partner? No Within the last year, have y ou been kicked, hit, slapped, or otherwise physically hurt by your partner or ex-partner? No 06/18/2025 Within the last year, have y ou been raped or forced to have any kind of sexual activity by your partner or ex-partner? No 06/18/2025 Hunger Vital Sign Answer Date Recorded Within the past 12 months, y ou worried that your food would run out before you got the money to buy more. Never true 06/18/20 25 Within the past 12 months, t he food you bought just didn't last and you didn't have money to get more. Never true 06/18/2025 PRAPARE - Transportation Answer Date Re corded In the past 12 months, has l ack of transportation kept you from medical appointments or from getting medications? No 05/31 In the past 12 months, has l ack of transportation kept you from meetings, work, or from getting things needed for daily living? No 06/18/2025 Housing Stability Vital Sign Answer Andrew e Recorded In the last 12 months, was t here a time when you were not able to pay the mortgage or rent on time? No 06/18/2025 Number of Times Moved in the Last Year Not on fi le 06/18/2025 At any time in the past 12 m [facility], were you homeless or living in a fci (including now)? No 06/18/2025 [facility] Utilities Answer Date Recorded In the past 12 months has th e electric, gas, oil, or water company threatened to shut off services in your home? 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) to steady your nerves or to get [...] Sign Reading Time Taken Comments Blood Pressure 90/57 06/25/2025 3:48 PM EST Pulse 94 06/25/2025 11:40 AM EST Temperature 36.6 C (97.8 F) 06/25/2025 3:48 PM EST Respiratory Rate 16 06/25/2025 11:4 0 AM EST Oxygen Saturation 91% 06/25/2025 11: 40 AM EST Inhaled Oxygen Concentration - - Weight 74.7 kg (164 lb 10.9 oz) 06/25/2025 4:20 AM EST Height 160 cm (5' 3 ) 06/17/2025 4:27 PM EST Body Mass Index 29.17 06/17/2025 4:27 PM EST documented in this encounter Functional Status * PT Therapeutic Procedures Time Entry Question Answer Date of Assessment Author Therapeutic Exercise Time Entry 10 5 3:08 PM EST Lyssa Barcenas Therapeutic Activity Time Entry 19 5 3:08 PM EST Lyssa Barcenas * Result of Injury Answer Date of Assessment Author No 06/25/2025 11:47 AM EST Bella Boland RN * Work-Related Injury Answer Date of Assessment Author No 06/25/2025 11:47 AM EST Bella Boland RN * HEENT Question Answer Date of Assessment Author KALYANI (WDL) X 06/25/2025 12:00 PM EST Bella Scanlon RN R Eye Mildly impaired vision 06/25/2025 12:00 P M EST Bella Boland RN L Eye Mildly impaired vision 06/25/2025 12:00 P M EST Bella Boland RN R Ear Mildly impaired hearing 06/25/2025 12:00 PM EST Bella Boland RN L Ear Mildly impaired hearing 06/25/2025 12:00 PM EST Bella Boland RN Voice Other (Comment) 06/21/2025 4:00 PM EST Snehal Azevedo RN Teeth Missing teeth 06/25/2025 12:00 PM EST Bella Chaudhary RN * BMI (Calculated) Answer Date of Assessment Author 29.2 06/25/2025 4:20 AM EST Liu, Ti na * Percent Excess Weight Loss Answer Date of Assessment Author 0 06/17/2025 4:27 PM Precious Rivera RN * Total Weight Change Percent Answer Date of Assessment Author 2222 06/25/2025 4:20 AM EST Liu, Ti na * Weight Change Since Preop Answer Date of Assessment Author 74.68 06/25/2025 4:20 AM EST Liu, Ti na * Initial Excess Weight Answer Date of Assessment Author -56.25 06/17/2025 4:27 PM Precious Rivera RN * IBW in lbs (Bariatric) Answer Date of Assessment Author 124 06/17/2025 4:27 PM Precious Rivera RN * Weight Change Since Last Visit Answer Date of Assessment Author 0 06/25/2025 4:20 AM EST Liu, Ti na * IBW in kg (Bariatric) Answer Date of Assessment Author 56.25 06/17/2025 4:27 PM Precious Rivera RN * Percent of IBW Answer Date of Assessment Author 6,183.08 06/17/2025 4:27 PM Precious Rivera RN * EBW (kg) Answer Date of Assessment Author 3,476.39 06/17/2025 4:27 PM Precious Rivera RN * EBW (lbs) Answer Date of Assessment Author 3,470.23 06/17/2025 4:27 PM EST Precious Aguilar RN * Event/Notification Description Question Answer Date of Assessment Author Event Location [place] 06/19/2025 9:55 PM EST Eliza Gatica RN Department and Room Number 10-114 06/19/2025 9:5 5 PM Eliza Ross RN Reason for Rapid Response Team notification MEWS 06/19/2025 6:23 PM EST Kenny Hernandez RN Is the patient a DNR? No 06/19/2025 6:23 PM Kenny Perez RN Method of Notification PEWS/MEWS alert 06/19/2025 6:23 PM Kenny Perez RN * Progress Answer Date of Assessment Author improving 06/25/2025 8:00 AM EST Perez Boland RN * Stabilization Measures Answer Date of Assessment Author legs elevated 06/25/2025 8:00 AM Perez Thomas RN * Supportive Measures Answer Date of Assessment Author active listening utilized;ve rbalization of feelings encouraged 06/25/2025 8:00 AM Bella Thomas RN * Oral Nutrition Promotion Answer Date of Assessment Author physical activity promoted 06/25/2025 8:00 AM Bella Love RN * Pressure Reduction Techniques Answer Date of Assessment Author frequent weight shift encouraged 06/25/2025 3:14 AM EST Marianna Saeed RN * Dysrhythmia Management Answer Date of Assessment Author forceful cough encouraged;Va lsalva maneuver encouraged 06/21/2025 8:00 AM EST Snehal Bettencourt RN * Pain Management Interventions Answer Date of Assessment Author medication (see MAR) 06/25/2025 11:47 AM EST Bella Chaudhary RN * Fluid/Electrolyte Management Answer Date of Assessment Author fluids restricted 06/25/2025 8:00 AM Bella Thomas RN * Airway/Ventilation Management Answer Date of Assessment Author calming measures promoted;po sition adjusted;oxygen therapy provided 06/25/2025 8:00 AM Bella Thomas R N * Trust Relationship/Rapport Answer Date of Assessment Author care explained;choices provided;thoughts/feelings acknowledged 06/25/2025 8:00 AM Vignesh Thomas RN * Pressure Reduction Devices Answer Date of Assessment Author positioning supports utilized 06/25/2025 8:00 AM Bella Thomas RN * Environmental Support Answer Date of Assessment Author calm environment promoted 06/25/2025 8:00 AM Bella Thomas RN * Nutrition Interventions Answer Date of Assessment Author food preferences provided 06/25/2025 8:00 AM Bella Thomas RN * Infection Prevention Answer Date of Assessment Author hand hygiene promoted 06/24/2025 8:00 AM Bella Wynne RN * Family/Support System Care Answer Date of Assessment Author support provided 06/25/2025 8:00 AM Bella Thomas RN * Medication Review/Management Answer Date of Assessment Author medications reviewed 06/24/2025 12:57 PM Bella Wynne RN * Skin Protection Answer Date of Assessment Author incontinence pads utilized;t ransparent dressing maintained 06/25/2025 8:00 AM Bella Thomas RN * Self-Care Promotion Answer Date of Assessment Author independence encouraged;adap tive equipment use encouraged 06/25/2025 8:00 AM Bella Thomas RN * Safety Interventions Question Answer Date of Assessment Author Safety Precautions/Falls Reduction assistive device/personal items within reach;fall reduction program maintained 06/17/2025 4:40 PM Precious Rivera RN All Alarms alarm(s) activated a nd audible 06/17/2025 4:40 PM Precious Rivera RN * General Emergency Care CPG Interventions Question Answer Date of Assessment Author Coping Interventions anticipatory guidan ce provided;safe, supportive environment facilitated 06/17/2025 4:40 PM Precious Rivera RN General Care Management calm environment promoted;monitored for physiologic status changes 06/17/2025 4:40 PM Precious Rivera RN * Discharge Needs Assessment Question Answer Date of Assessment Author Discharge Facility/Level of Care Needs 1-Home or Self Care 06/25/2025 9:42 AM EST Blaine, Lupe D, RN Equipment Needed After Discharge none 06/25/2025 9:42 AM Lupe Branch RN Discharge Coordination/Progress discharge 06/25/2025 9:42 AM Lupe Branch RN Transportation Anticipated family or fri end will provide 06/25/2025 9:42 AM Lupe Branch RN Transportation Concerns none 06/25/20 9:42 AM Lupe Branch RN Concerns to be Addressed no discharge ne eds identified 06/25/2025 9:42 AM Lupe Branch RN Readmission Within the Last 30 Days no previous admission in last 30 days 06/25/2025 9:42 AM Lupe Branch RN Patient/Family Anticipated Services at Transition none 06/25/2025 9:42 AM Lupe Branch RN Patient's Choice of Community Agency(s) n/a 06/25/2025 9:42 AM Lupe Branch RN Patient/Family Anticipates Transition to home with family 06/25/2025 9:42 AM Lupe Branch RN Offered/Gave Vendor List no 025 9:42 AM Lupe Branch, RN * Acuity/Destination Question Answer Date of Assessment Author Patient Acuity 2 06/17/2025 4:24 PM EST Precious Pickens RN * Weight Change 24 hrs Answer Date of Assessment Author -1.8 06/25/2025 4:20 AM EST Liu, Ti na * Precautions Question Answer Date of Assessment Author Medical Precautions Fall precautions 06/18/2025 10:49 AM EST Key Pitt * Date of OT Session Question Answer Date of Assessment Author OT Initials LS 06/22/2025 2:55 PM EST Bernardo s Sultana Date of OT Session [id number] 06/22/2025 2:55 PM EST Sultana Pugh * Participants in Care Question Answer Date of Assessment Author 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 06/22/2025 2:55 PM EST Bernardo mendiola Sultana Family/Caregiver Present N 06/22/2025 2:55 PM EST Sultana Pugh * Presentation Question Answer Date of Assessment Author Lines and Tubes Telemetry 06/22/2025 2:55 PM EST Sultana Smith Pre-Session Supine;Head of bed elevated;Lines intact 06/22/2025 2:55 PM EST Keaton Sultana Post-Session Sitting in chair;Pio l light in reach;Lines intact;Chair alarm;RN notified 06/22/2025 2:55 PM EST Keaton Sultana Pre-Session Comments RN consent to tx 06/22/2025 2:55 PM EST Bernardos Sultana Post-Session Comments Needs met 06/22/2025 2:55 PM EST Keaton Sultana * JHHLM Question Answer Date of Assessment Author CARLOS HLM Daily Mobility Score 4 06/22/2025 2: 55 PM EST Sultana Pugh * Sensation Question Answer Date of Assessment Author Light Touch: Right Upper Extremity Intact 2024 10:49 AM Lissette Betts * Sensation Question Answer Date of Assessment Author Light Touch: Left Upper Extremity Intact 10:49 AM Lissette Betts * Sensation Question Answer Date of Assessment Author Light Touch: Right Lower Extremity Mild impairment 06/18/2025 10:49 AM Lissette Betts * Sensation Question Answer Date of Assessment Author Light Touch: Left Lower Extremity Mild impairment 06/18/2025 10:49 AM Lissette Betts * Bed Mobility Exam: Scooting/Bridging Question Answer Date of Assessment Author Level of Marne Contact guard 06/22/2025 2:55 PM EST Xochitl Pugha Physical/Nonphysical Assist Verbal Cues; Set-up required 06/22/2025 2:55 PM EST Xochitl Pugha * Bed Mobility Exam: Supine to Sit Question Answer Date of Assessment Author Level of Mar[place] Minimum assist (75 % patient's effort) 06/22/2025 2:55 PM EST Keaton Sultana Physical/Nonphysical Assist HOB elevated ;Verbal Cues;Set-up required 06/22/2025 2:55 PM EST Xochitl Pugha * Bed Mobility Exam: Sit to Supine Question Answer Date of Assessment Author Level of Mar[place] Moderate assist (5 0% patient's effort) 06/18/2025 10:49 AM Lissette Betts Physical/Nonphysical Assist Verbal Cues;Nonverbal cues (demo/gestures);Addit ional assist utilized for safety 06/18/2025 10:49 AM EST Maravel, Key * Transfer Exam: Sit to stand Question Answer Date of Assessment Author Level of Marne Contact guard 06/22/2025 2:55 PM EST Siders, Sultana Physical/Nonphysical Assist Verbal Cues; Set-up required 06/22/2025 2:55 PM EST Siders, Sultana Assistive Device Rollator 06/22/2025 2:55 PM EST S iders, Sultana * Transfer Exam: Stand to Sit Question Answer Date of Assessment Author Level of Marne Contact guard 06/22/2025 2:55 PM EST Siders, Sultana Physical/Nonphysical Assist Verbal Cues; Set-up required 06/22/2025 2:55 PM EST Siders, Sultana Assistive Device Rollator 06/22/2025 2:55 PM EST S iders, Sultana * Transfer Exam: Bed to Chair/Chair to Bed Question Answer Date of Assessment Author Type of Transfer Sidesteps 06/22/2025 2:55 PM EST S iders, Sultana Level of Marne Contact guard 06/22/2025 2:55 PM EST Siders, Sultana Physical/Nonphysical Assist Additional assist utilized for safety;Verbal Cues;Set-up required 06/22/2025 2:55 PM EST Siders, Sultana Assistive Device Rollator 06/22/2025 2:55 PM EST S iders, Sultana * Interventions Question Answer Date of Assessment Author Self-Care Interventions OT provides max A for all LB BADL and mod A for toileting 2 pt compromised truncal mobility and eccentrics as well as delayed righing/protective reaction due to debility and decreased stamina; with this assist pt better able to demonstrate self-recruitment during static sit with ability to participate in anterior pericare with LOYOLA for item-retrieval as well as increased reserves to better participate in grooming BADL at EOB (he requires LOYOLA for item-retrieval). Pt able to plan and sequence BADL task appropriately with normal understanding of item use and recognition. OT educates pt on the importance of energy conservation and supervision (initial) when participating in BADL (showering) to promote safe ADL participation and to decrease risk of falls. OT educates pt on importance of seated UB/LB dressing as he recovers as well as acquiring a shower chair/TTB to promote safe bathing. Pt verbalize understanding. 06/18/2025 10:49 AM Key Conrad * Lower Extremity Dressing Question Answer Date of Assessment Author LE Dressing Interventions 06/22/2025 2:55 PM EST Siders, Sultana LE Dressing Where Assessed Edge of bed 06/22/2025 2:5 5 PM EST Siders, Sultana Sock Level of Assistance Dependent 06/22/2025 2:55 PM EST Siders, Sultana Shoe Level of Assistance Dependent 06/18/2025 10:49 AM Key Conrad Adult Briefs Level of Assistance Maximum assistance 06/18/2025 10:49 AM Key Conrad * Toileting Question Answer Date of Assessment Author Toileting Interventions 06/22/20 2:55 PM EST Siders, Sultana Where Assessed Toilet;Other (Comment) 10:49 AM EST Key Pitt Toileting Level of Assistance Moderate assistance 06/22/2025 2:55 PM EST Siders, Sultana * Cognition Question Answer Date of Assessment Author Mood/Behavior Alert 06/22/2025 2:55 PM EST Side rs, Sultana Overall Cognitive Status WFL 06/22/2025 2:55 PM EST Siders, Sultana Arousal/Alertness Appropriate response s to stimuli 06/22/2025 2:55 PM EST Siders, Sultana Single Step Commands Consistently 06/22/2025 2:[address] Siders, Sultana Multi-Step Commands Consistently 06/22/2025 2:55 PM ES T Siders, Sultana * General Question Answer Date of Assessment Author Next PT Re-Assessment Date [id number] 06/18/2025 10: 49 AM Lissette Betts Patient/Family Goals Statement to feel better 06/18/2025 10:49 AM Lissette Betts * Plan Question Answer Date of Assessment Author Predicted Duration of Therapy 2 weeks 06/18/2025 10:49 AM Lissette Betts Discharge Recommendation Subacute rehab 025 10:49 AM Lissette Betts Equipment Recommended Defer to facility 06/18/20 10:49 AM Lissette Betts Planned PT Interventions Balance trainin g;Bed mobility training;Gait training;Transfer training;Functional Mobility 06/18/2025 10:49 AM Lissette Betts Therapy Frequency 2 - 5 times per week 10:49 AM Lissette Betts * PT Assessment Question Answer Date of Assessment Author Activity Limitations Inability to sit independently;Inability to ambulate household distances;Inability to complete ADLs independently;Inability to ambulate independently;Inability to ambulate community distances;Inability to transfer independently 06/18/2025 10:49 AM Lissette Betts Participation Restrictions Self-care;Home management;Community leisure 06/18/2025 10:49 AM Lissette Betts History Profile 1 - 2 personal facto rs and/or comorbidities 06/18/2025 10:49 AM Lissette Betts Impairments Decreased endurance, ventilation, and/or gas exchange;Impaired functional mobility/transfers;Impair ed balance;Impaired motor cordination/control;Impai red gait dynamics/performance 06/18/2025 10:49 AM Lissette Betts Evaluation/Treatment Tolerance Patient limited by fatigue 06/18/2025 10:49 AM Lissette Btets Diagnosis impaired functional mobility 06/18/2025 10:49 AM Lissette Betts Clinical Presentation Evolving clinical presentation with changing characteristics 06/18/2025 10:49 AM Lissette Betts Clinical Decision Making Moderate complexity 06/18/2025 10:49 AM Lissette Betts Rehab Potential Good, to achieve sta kalyani therapy goals 06/18/2025 10:49 AM Lissette Betts Activity Tolerance Tolerates 10 - 20 mi n activity with multiple rests 06/18/2025 10:49 AM Lissette Betts * Ambulation Question Answer Date of Assessment Author Distance 100 ft 06/18/2025 10:49 AM Lissette Shah Device Rollator 06/18/2025 10:49 AM Lissette Shah Assistance Minimum assistance 06/18/2025 10:49 AM Lissette Garza Ambulation Comments Shuffling gait, decreased gait speed, moderate forward trunk lean, tendency to utilize rollator outside [place]. Cues provided for upright posture and safe use of rollator during ambulation. 06/18/2025 10:49 AM Lissette Betts * Plan of Care Reviewed With Answer Date of Assessment Author patient 06/25/2025 8:00 AM Perez Thomas RN * Pressure Injury Prevention (PIP) Interventions Question Answer Date of Assessment Author Pressure Reducing Devices Pillow;Specialty bed;Preventative foam dressing 06/25/2025 4:00 AM Marianna Hawk RN Preventative Foam Dressing Location Coccyx 06/25/2025 8:00 AM Bella Thomas RN Preventative Foam Dressing Intervention Applied 06/24/2025 2:53 AM Giovany Palomo RN Bed Type Acute Care Bed 06/25/2025 4:00 AM Marianna Greene RN * Behavioral Expectations Question Answer Date of Assessment Author Behavioral Expectations revi ewed with patient/guardian and family/partner in care? Yes 06/24/2025 2:43 AM Pio Palomo RN * Vital Signs Question Answer Date of Assessment Author Heart Rate Source Monitor 06/25/2025 4:20 AM Marianna Hawk RN * Oxygen Therapy Question Answer Date of Assessment Author Oximetry Probe Site Location Left Digit 06/19/2025 4 :43 AM Alize Mast RN * Neurological Question Answer Date of Assessment Author Neuro (WDL) WDL 06/24/2025 12:00 AM Robb Michel RN * Cardiac Question Answer Date of Assessment Author Cardiac Regularity Regular 06/24/2025 12:00 AM Robb Nelson RN Cardiac (WDL) X 06/24/2025 12:00 AM Robb Ellison RN * Gastrointestinal Question Answer Date of Assessment Author Abdominal Tenderness Tenderness 06/25/2025 12:00 PM Bella Thomas RN Bowel Sounds (All Quadrants) Active 06/25/2025 12:00 PM Bella Thomas RN Gastrointestinal (WDL) X 12:00 PM Bella Thomas RN Abdomen Inspection Rounded;Distended 06/25/2025 12:00 PM Bella Thomas RN * Peripheral Vascular Question Answer Date of Assessment Author Peripheral Vascular (WDL) X 06/25/2025 12:00 PM Bella Thomas RN Generalized Edema Non-pitting 06/25/2025 12: 00 PM EST Bella Boland RN Facial Edema Non-pitting 06/23/2025 4:00 PM EST Gladys Jaimes RN Perineal Edema +4 06/23/2025 4:00 PM EST Gladys Aviles RN Sacral Edema Non-pitting 06/23/2025 4:00 PM EST Gladys Jaimes RN RUE Edema +1 06/24/2025 12:00 AM EST Robb Covarrubias RN RLE Edema +2 06/25/2025 12:00 PM EST Bella Boland RN LUE Edema +2 06/24/2025 12:00 AM EST Robb Covarrubias, RN LLE Edema +2 06/25/2025 12:00 PM EST Bella Boland RN Capillary Refill 3-4 seconds 06/25/2025 12:0 0 PM Bella Thomas, DEANNA Pulses L radial;R radial;R pedal;L pedal 06/25/2025 4:00 AM Marianna Hawk RN Cyanosis None 06/25/2025 4:00 AM EST Marianna Latham RN Edema Generalized;Right lower extremity;Left lower extremity 06/25/2025 12:00 PM Bella Thomas RN * RUAna Neurovascular Assessment Question Answer Date of Assessment Author RUAna Capillary Refill 3-4 seconds 06/25/2025 4:00 AM E Marianna Elizabeth RN R Radial Pulse +2 06/25/2025 12:00 PM Bella Ivy Ba, RN * LUE Neurovascular Assessment Question Answer Date of Assessment Author DONNA Capillary Refill 3-4 seconds 06/25/2025 4:00 AM E Marianna Elizabeth RN L Radial Pulse +2 06/25/2025 12:00 PM Bella Ivy Ba, RN * RLE Neurovascular Assessment Question Answer Date of Assessment Author RLAna Capillary Refill 3-4 seconds 06/25/2025 4:00 AM E Marianna Elizabeth RN R Posterior Tibial Pulse +2 06/24/2025 12:00 AM Robb Pierce RN R Pedal Pulse +1 06/25/2025 12:00 PM Bella Wynne RN * LLAna Neurovascular Assessment Question Answer Date of Assessment Author LLE Capillary Refill 3-4 seconds 06/25/2025 4:00 AM E Marianna Elizabeth RN L Posterior Tibial Pulse +2 06/24/2025 12:00 AM Robb Pierce RN L Pedal Pulse +1 06/25/2025 12:00 PM Bella Wynne RN * Musculoskeletal Question Answer Date of Assessment Author RUE Full movement 06/25/2025 12:00 PM Bella Thomas RN RLE Weakness;Swelling 06/25/2025 12: 00 PM Bella Thomas RN LUE Full movement 06/25/2025 12:00 PM Bella Thomas RN LLE Weakness;Swelling 06/25/2025 12: 00 PM Bella Thomas RN Musculoskeletal (WDL) X 06/25/2025 12:00 PM Bella Thomas RN Musculoskeletal Additional Assessments No 06/25/2025 4:00 AM Marianna Hawk RN * Genitalia Question Answer Date of Assessment Author Male Genitalia Intact 06/25/2025 12:00 PM Bella Ivy Ba, RN * Psychosocial Question Answer Date of Assessment Author Psychological state Calm;Cooperative 06/25/2025 8:00 A M Bella Thomas RN Needs Expressed Denies 06/25/2025 4:00 AM Marianna Restrepo RN Psychosocial (WDL) WDL 06/25/2025 12 :00 PM Bella Thomas RN Psychosocial Additional Assessments No 06/25/2025 4:00 AM Rochelle Hawk RN Ability to Express Feelings Able to express 06/24/2025 8:00 PM Rochelle Hawk RN Ability to Express Needs Able to express 06/24/2025 8: 00 PM Marianna Hawk RN Ability to Express Thoughts Able to express 06/24/2025 8:00 PM Rochelle Hawk RN Ability to Understand Others Understands 06/24/2025 8:00 PM EST Rochelle Saeed RN * Unmeasured Output Question Answer Date of Assessment Author Most Recent BM Date [id number] 06/25/2025 9:00 AM Maria Dolores Arredondo Unmeasured Urine Occurrence 1 06/25/2025 9: 00 AM EST Maria Dolores Ventura * Intake Question Answer Date of Assessment Author [address] 06/25/2025 8:00 AM EST Bella Hinojosa RN Diet Supplements Other (Comment) 06/20/2025 4:32 PM Snehal Gudino RN Percent Meals Eaten (%) 75 06/23/2025 12:24 PM EST Chris Barcenas CNA * Output (mL) Question Answer Date of Assessment Author Urine Odor No odor 06/25/2025 9:00 AM EST Maria Dolores Bales Urinary Incontinence No 06/25/2025 9:00 AM E Maria Dolores Hawley Lawson [facility] [place] Wipes Used Perineum cleansed with soap/water prior 06/25/2025 11:40 AM EST Maria Dolores Ventura Bowel Incontinence No 06/25/2025 11 :40 AM EST Maria Dolores [place] Urine Amount Small 06/18/2025 12:39 PM EST Ayaan Chan RN * [place] Fall Risk Question Answer Date of Assessment Author History of Falling, Immediat e or Within 3 Months 0 06/25/2025 8:00 AM EST Bella Boland RN Secondary Diagnosis 0 06/25/2025 8:00 AM Bella Love RN Ambulatory Aid 15 06/25/2025 8:00 AM EST Bella Chaudhary RN Intravenous Therapy/Heparin Lock 20 06/25/20 8:00 AM Bella Thomas RN Gait/Transferring 10 06/25/2025 8:00 AM Bella Thomas RN Mental Status 0 06/25/2025 8:00 AM Bella Ricketts RN [place] Fall Risk Score 45 06/25/2025 8:00 AM Bella Thomas RN * Huber Scale Question Answer Date of Assessment Author Sensory Perceptions 3 06/25/2025 12:00 PM E Bella Murcia RN Moisture 3 06/25/2025 12:00 PM Bella Ricketts RN Activity 3 06/25/2025 12:00 PM Bella Ricketts RN Mobility 3 06/25/2025 12:00 PM Bella Ricketts RN Nutrition 3 06/25/2025 12:00 PM Bella Ricketts RN Friction and Shear 3 06/25/2025 12:00 PM Bella Love RN Huber Scale Score 18 06/25/2025 12:00 PM Bella Love RN * BSA (Calculated - sq m) Answer Date of Assessment Author 1.82 06/25/2025 4:20 AM EST Liu, Ti na * BMI (Calculated) Answer Date of Assessment Author 29.18 06/25/2025 4:20 AM EST Liu, Ti na * Pain Location Answer Date of Assessment Author Back 06/25/2025 11:47 AM Bella Thomas RN * Pain Orientation Answer Date of Assessment Author Lower 06/25/2025 11:47 AM Bella Thomas RN * Wound Follow-Up Question Answer Date of Assessment Author Last Date of Wound Treatment 95094 06/21/2025 2 :23 PM Domingo Mayen RN Wound Follow-Up Needed? None 06/21/2025 2:23 P M Domingo Mayen RN Wound Previous Provider AB 06/21/2025 2:23 P M Domingo Mayen RN * Cardiac Question Answer Date of Assessment Author Telemetry Strip Reviewed Yes, I have reviewed and acknowledged the strip measurements as interpreted by the CPT's 06/25/2025 8:00 AM Bella Thomas RN Cardiac Rhythm NSR 06/25/2025 12:00 PM Bella Thomas RN Ectopy Premature ventricula r contractions 06/25/2025 12:00 PM EST Bareng, Lovileen H, RN Ectopy Frequency Occasional 06/25/2025 12:0 0 PM Bella Thomas RN Production Officer On Yes 06/25/2025 12:00 PM Bella Thomas RN Telemetry Audible Yes 06/25/2025 12: 00 PM Bella Thomas RN Telemetry Alarms Set Yes 06/25/2025 12:00 PM Bella Thomas RN Cardiac (WDL) X 06/25/2025 12:00 PM Bella Thomas RN Pacemaker No 06/25/2025 12:00 PM Bella Thomas RN Cardiac Regularity Regular 06/25/2025 12 :00 PM Bella Thomas RN Heart Sounds S1, S2 06/25/2025 12:00 PM Bella Thomas RN Telemetry/Hospital Recruiter Yes 06/25/2025 12:00 PM Bella Thomas RN Jugular Venous Distention (JVD) Yes 06/25/2025 12:00 PM Bella Thomas RN Cardiac Symptoms None 06/25/2025 12:0 0 PM Bella Thomas RN * Respiratory Question Answer Date of Assessment Author Bilateral Breath Sounds Clear;Diminished 06/25/2025 12 :00 PM Bella Thomas RN R Breath Sounds Clear 06/25/2025 4:00 AM Marianna Restrepo RN L Breath Sounds Clear 06/25/2025 4:00 AM Marianna Restrepo RN Respiratory Pattern Regular 06/25/2025 12:[address] Bella Boland RN Chest Assessment Symmetrical 06/25/2025 4:00 AM Marianna Winston RN Cough Non-productive 06/25/2025 4:00 AM Marianna Greene RN Respiratory (WDL) X 06/25/2025 12:00 PM Bella Thomas RN Respiratory Additional Assessments No 06/25/2025 4:00 AM Rochelle Hawk RN Respiratory Effort Unlabored 06/25/2025 8:00 AM Bella Thomas RN Respiratory Depth/Rhythm Regular 06/25/2025 8:00 AM Bella Thomas RN Dyspnea Occurrence With exertion 06/25/2025 8:00 AM Bella Love RN * RLE ROM Assessment Question Answer Date of Assessment Author RLE Assessment [facility] 06/18/2025 10:49 AM EST Key Fitch * LLE ROM Assessment Question Answer Date of Assessment Author LLE Assessment [facility] 06/18/2025 10:49 AM EST Key Fitch * Vitals Question Answer Date of Assessment Author BP 90/57 06/25/2025 3:48 PM EST Lindg ada, [place] Temp 97.8 06/25/2025 3:48 PM EST Lindg ada, [place] Temp src Oral 06/25/2025 3:48 PM EST Lindg ada, [place] Pulse 94 06/25/2025 11:40 AM EST Cherise gren, [place] Resp 16 06/25/2025 11:40 AM EST Cherise gren, [place] SpO2 91 06/25/2025 11:40 AM EST Bath gren, [place] Weight 2634.94 06/25/2025 4:20 AM EST Liu , Consuelo O2 Flow Rate (L/min) 2 06/24/2025 3:15 PM E Apurva Gu[place] BP Location Right arm 06/25/2025 3:48 PM EST Maria Teresa caballero [place] BP Method Automatic 06/25/2025 3:48 PM EST Linddennis caballero, [place] MAP (mmHg) 64 06/25/2025 3:48 PM EST Maria Teresa caballero, [place] Weight Method Standing scale 06/25/2025 4:20 AM EST Co mbs, [place] Pulse Oximetry Type Continuous 06/25/2025 11:[address] Maria Dolores [place] Patient Activity During SpO2 Measurement At rest 06/25/2025 11:40 AM EST Mey [place] Oxygen Therapy None 06/25/2025 3:48 PM EST Maria Dolores [place] O2 Delivery Method Nasal cannula 06/24/2025 3:15 PM Apurva Vidal Patient Position Sitting 06/25/2025 3:48 PM EST Maria Dolores Shepard * Point of Care Tests Question Answer Date of Assessment Author Provider Role Other (Comment) 06/24/2025 12:00 AM Robb Pierce RN Blood Glucose Meter 109 06/19/2025 7:27 PM Asim Colon Provider Name Bouchra Amezcua MD 06/24/2025 12 :00 AM Robb Pierce RN Method of Communication Secure message 06/24/20 12:00 AM Robb Pierce RN Reason for Communication Evaluate 12:00 AM Robb Pierce RN Response Other (Comment) 06/24/2025 12:00 AM Robb Pierce RN Glucose Sample Retrieved From Finger stick 06/19/2025 7:27 PM Asim Phan * Patient Information Question Answer Date of Assessment Author Primary Caregiver Self 06/18/2025 11:08 AM Miguel A Bejarano Support System Immediate family;Oth er (Comment) 06/18/2025 11:08 AM Miguel A Bejarano * Activities of Daily Living Question Answer Date of Assessment Author Equipment Currently Used at Home walker, rolling;shower chair 06/18/2025 11:08 AM Miguel A Bejarano Functional Status Minimum assistance 06/18/2025 11:08 AM Miguel A Bejarano Living Arrangements Alone 06/18/2025 11:08 AM Miguel A Minaya Type of Residence Private residence 06/18/2025 11:08 A M Miguel A Bejarano * Income Information Question Answer Date of Assessment Author Income Source Retired 06/18/2025 11:08 AM Miguel A Peguero Income/Expense Information Income meets expenses 06/18/2025 11:08 AM Miguel A Bejarano Current Resources Utilized None 06/18/2025 11:08 AM Miguel A Bejarano * Advance Directives (For Healthcare) Question Answer Date of Assessment Author Advance Directive Not applicable 06/20/2025 8:48 PM Gladys Levy RN Pre-existing DNR/DNI Order No 06/20/2025 8:4 8 PM Gladys Crook RN Information Provided on Healthcare Directives No 06/20/2025 8:48 PM Gabo Crook RN Patient Requests Assistance No 06/20/2025 8:48 PM Gladys Crook RN Have you reviewed your Advance Directive and is it valid for this stay? No 06/20/2025 8:49 PM Harika Crook RN * Nutrition Screen Question Answer Date of Assessment Author Difficulty Chewing or Swallowing No 06/20/2025 8:49 PM Gladys Crook RN Burn, Pressure Injury, or Non-Healing Wound No 06/20/2025 8:49 PM Gladys Crook RN Home Tube Feeding or Total Parenteral Nutrition (TPN) No 06/20/2025 8:49 PM Gladys Crook RN Food allergy, Religion, or Cultural nutrition needs No 06/20/2025 8:49 PM Lola Crook RN * Pain Descriptors Answer Date of Assessment Author Aching 06/25/2025 11:47 AM Bella Thomas RN * Pain Onset Answer Date of Assessment Author Ongoing 06/25/2025 11:47 AM Bella Thomas RN * Pain Frequency Answer Date of Assessment Author Constant/continuous 06/25/2025 11:47 AM Bella Ricketts RN * Patient's Stated Pain Goal Answer Date of Assessment Author 5 06/25/2025 11:47 AM Bella Thomas RN * Trauma/Abuse Assessment Question Answer Date of Assessment Author Physical Abuse Denies 06/20/2025 8:50 PM Gladys Sifuentes RN Verbal Abuse Denies 06/20/2025 8:50 PM Gladys Crane RN * Values/Beliefs Question Answer Date of Assessment Author Cultural Requests During Hospitalization denies 06/20/2025 8:49 PM Gladys Crook RN Spiritual Requests During Hospitalization denies 06/20/2025 8:49 PM Gladys Crook RN Unable to assess No 06/20/2025 8:49 PM Gladys Vazquez RN * Genitourinary Question Answer Date of Assessment Author Genitourinary (WDL) X 06/25/2025 12:00 PM Bella Franco RN Genitourinary Symptoms Urgency 06/25/2025 12:00 P M Bella Thomas RN * Neurological Question Answer Date of Assessment Author Level of Consciousness Alert 12:00 PM Bella Thomas RN Orientation Level Oriented X4 06/25/2025 12: 00 PM Bella Thomas RN Cognition Appropriate judgement 06/25/2025 12:00 PM Bella Thomas RN Speech Slurred 06/25/2025 12:00 PM Bella Thomas RN L Pupil Reaction Brisk 06/24/2025 8:0 0 PM Marianna Hawk RN L Pupil Size (mm) 2.5 06/24/2025 8:0 0 PM Marianna Hawk RN R Pupil Reaction Brisk 06/24/2025 8:00 PM Marianna Hawk RN R Pupil Size (mm) 2.5 06/24/2025 8:0 0 PM Marianna Hawk RN Neuro (WDL) X 06/25/2025 12:00 PM Bella Thomas RN Swallow Able to swallow manuelito ds and liquids without difficulty 06/25/2025 12:00 PM Bella Thomas RN CIWA Alcohol Withdrawal Assessment No 06/25/2025 4:00 AM Marianna Hawk RN R Hand Grasp Moderate 06/25/2025 4:00 AM Marianna Hawk RN L Hand Grasp Moderate 06/25/2025 4:00 AM Marianna Hawk RN R Pupil Shape Round 06/24/2025 8:00 PM Marianna Hawk RN L Pupil Shape Round 06/24/2025 8:00 PM Marianna Hawk RN Neuro Symptoms None 06/25/2025 4:00 AM Marianna Hawk RN Pupil Assessment Yes 06/25/2025 4:00 AM Marianna Hawk RN Hand Grasp/Motor Function/Sensation Assessment Grasp 06/25/2025 4:00 AM Marianna Hawk RN Neuro Additional Assessments No 06/25/2025 4:00 AM Marianna Hawk RN * Height and Weight Question Answer Date of Assessment Author Height 63 06/17/2025 4:27 PM Precious Torrez RN Height Method Stated 06/17/2025 4:27 PM Precious Billy RN * Prior Function Question Answer Date of Assessment Author Level of Mobility Ambulatory- community 06/18/20 10:49 AM Key Conrad Mobility [place] Independent gait w ith device 06/18/2025 10:49 AM Key Conrad History of Falls No 06/18/2025 10:4 9 AM Key Conrad ADL Performance Independent 06/18/2025 10:49 AM Key Conrad * RUE ROM Assessment Question Answer Date of Assessment Author RUAna Assessment [facility] 06/18/2025 10:49 AM Key Salas Ma * LUE ROM Assessment Question Answer Date of Assessment Author LUAna Assessment [facility] 06/18/2025 10:49 AM Key Salas Ma * Safe Environment Question Answer Date of Assessment Author 37-Pin Connection [Bed and Wall] Yes 06/25/2025 4:00 AM Rochelle Hawk RN Arm Bands On ID 06/25/2025 8:00 AM Bella Delgado RN Side Rails/Bed Safety 3/4 06/25/2025 8:00 AM Bella Thomas RN NonSkid Footwear On;Education provided 06/25/2025 8:00 AM Bella Thomas RN The Patient's Environment is Safe Yes 06/25/2025 8:00 AM Bella Thomas RN Head of Bed Angle 45 06/25/2025 4:00 AM Marianna Hawk RN Bed Foot Left Rail Up State Yes 06/25/2025 8:00 AM Bella Thomas RN Bed Head Right Rail Up State Yes 06/25/2025 8:00 AM Bella Thomas RN Bed Head Left Rail Up State Yes 06/25/2025 8:00 AM Bella Thomas RN Bed Foot Right Rail Up State No 06/25/2025 8:00 AM Bella Thomas RN Bed Exit System Activate Status Yes 06/25/2025 8:00 AM Bella Thomas RN Bed Brake State Yes 06/25/2025 8:00 AM Bella Ivy Ba, RN Bed Low Height State Yes 06/25/2025 8:00 AM E Bella Murcia RN Chair Exit System Activate Status No 06/22/2025 8:43 PM Dustin Koch * Fall Risk Interventions Question Answer Date of Assessment Author Safety Promotion/Fall Prevention assistive device/personal items within reach 06/25/2025 1:00 PM Bella Thomas RN Enhanced Safety Measures bed alarm set;previous patient education reinforced 06/25/2025 1:00 PM Bella Thomas RN Toilet Every 2 Hours-In Advance of Need Yes 06/25/2025 8:00 AM Bella Thomas RN Hourly Visual Checks In bed;Awake 06/25/2025 1:00 PM Bella Franco RN Room Door Open Deferred to promote rest 06/25/2025 8:00 AM Bella Thomas RN Gait Belt Used For Transfers Not applicable 06/25/2025 8:00 AM Bella Thomas RN Fall Bundle Components Call light within reach;Personal belongings within reach;Overbed table within reach;Bed in lowest position;Bed wheels locked;Non-skid footwear on if up in chair or ambulating 06/25/2025 1:00 PM Bella Thomas RN * Mobility Question Answer Date of Assessment Author Range of Motion active ROM (range of motion) encouraged 06/25/2025 2:00 PM Maria Dolores Ford Activity Management activity adjusted pe r tolerance;up in chair 06/25/2025 4:00 PM Maria Dolores Ford Activity Assistance Provided assistance, 1 person 06/25/2025 4:00 PM Maria Dolores Ford Body Position weight shifting;Chris chair 06/25/2025 4:00 PM EST Maria Dolores [place] VTE Prevention/Management education provided;medication 06/25/2025 12:00 PM Bella Thomas RN Head of Bed (HOB) Positioning HOB elevated 06/25/2025 4:00 PM EST Maria Dolores [place] Repositioned Turns self 06/25/2025 4:00 PM EST Maria Dolores [place] Head of Bed Elevated Self regulated 06/21/2025 8:00 PM EST Gladys Max RN Heels/Feet Foot of bed elevated 06/25/2025 2:00 PM EST Maria Dolores [place] Reason for Removing Anti-Embolism Device Ambulating 06/25/2025 8:00 AM Bella Thomas RN Positioning Frequency Able to turn self 06/25/20 4:00 PM EST Maria Dolores [place] * Hygiene Question Answer Date of Assessment Author Perineal Care absorbent pad 06/21/2025 12:00 AM EST Asim Valdovinos Bathing/Skin Care bath, partial 06/21/2025 7:00 AM EST Chris Barcenas CNA Oral Care oral rinse provided 06/24/2025 3:00 AM Giovany Currie RN Oral Care (Yes/No) Yes 06/24/2025 3:00 AM Giovany Palomo RN CHG (Chlorhexidine Gluconate) Hygiene Wipes 06/20/2025 11:00 AM EST Amada Ayala * Precautions Question Answer Date of Assessment Author Isolation Precautions precautions maintained 8:00 AM Bella Thomas RN Precautions Environmental surveillance 06/25/2025 8:00 AM Bella Thomas RN * Comfort and Environment Interventions Question Answer Date of Assessment Author Comfort Repositioned 06/25/2025 8:00 AM Bella Delgado RN * Safety Equipment at Bedside Question Answer Date of Assessment Author Standard Bedside Safety Ambu bags in hallway;Oxygen available and working;Suction available, setup and working 06/25/2025 8:00 AM Bella Thomas RN Additional Bedside Safety Bed in locked and low position 06/25/2025 8:00 AM Bella Thomas RN * IBW/kg (Calculated) Male Answer Date of Assessment Author 56.9 06/17/2025 4:27 PM Precious Rivera RN * IBW/kg (Calculated) Female Answer Date of Assessment Author 52.4 06/17/2025 4:27 PM Precious Rivera RN * Consults Question Answer Date of Assessment Author Integrative Medicine Consult Needed No 06/20/2025 8:50 PM Gladys Crook RN Pastoral Care Consult Needed No 06/20/2025 8 :50 PM Gladys Crook RN Social Services Consult Needed No 06/20/2025 8:50 PM Gladys Crook RN * Therapy Consults Question Answer Date of Assessment Author PT Evaluation Needed 1 06/20/2025 8:50 PM Gladys Casillas RN OT Evaluation Needed 2 06/20/2025 8:50 PM Gladys Casillas RN SPAR FINISHER Evaluation Needed 2 06/20/2025 8:50 PM Gladys Crook RN * Assistive Devices Question Answer Date of Assessment Author Assistive Devices Walker 06/20/2025 8:48 PM Gladys Crook RN * Provider Notification Question Answer Date of Assessment Author Critical Values WBC 88.77 06/22/2025 1:46 AM Gladys Sifuentes RN Notification Time 360 06/24/2025 12:00 AM Robb Pierce RN * Alarm Limits Question Answer Date of Assessment Author HR Alarm Limit Low 50 06/25/2025 4:00 AM Marianna Hawk RN HR Alarm Limit High 120 06/25/2025 4:00 AM Marianna Maki RN RR Alarm Limit Low 8 06/25/2025 4:00 AM Marianna Hawk RN RR Alarm Limit High 30 06/25/2025 4:00 AM Marianna Maki RN SpO2 Alarm Limit Low 90 06/25/2025 4:00 AM E Marianna Elizabeth RN SpO2 Alarm Limit High 100 06/25/2025 4:00 AM Marianna Hawk RN BP Systolic Alarm Limit Low 90 06/25/2025 4: 00 AM Marianna Hawk RN BP Systolic Alarm Limit High 140 06/25/2025 4 :00 AM Marianna Hawk RN * End of Shift Review Question Answer Date of Assessment Author Shift Review Complete Yes 06/25/2025 8:00 AM Bella Thomas RN Shift Report Received From Carroll Saeed RN 06/25/2025 8:0 0 AM Bella Thomas RN Shift Report Given To Perez Boland RN 06/25/2025 8:00 AM Bella Thomas RN * Hourly Rounding Question Answer Date of Assessment Author Hourly Rounding Complete Per Guideline Yes 06/25/2025 4:00 PM Moises Ford * Onset and Notification Specifics Question Answer Date of Assessment Author Time MIRROR SPECIALIST RN Notified [id number] 06/19/2025 9:55 PM E O'Eliza Khan RN * Monitoring Data Question Answer Date of Assessment Author Monitoring Comments MIRROR SPECIALIST notified of rae ent with vital signs outside established parameters on floor via MEWS alert with a score of 7. Chart reviewed, noted tachycardia into 150s with recent EKG result showing SVT. Contacted primary RN Iván who states that fellow at bedside to see patient, rhythm resolved via carotid massage. Primary RN denies need for MIRROR SPECIALIST at this time, will continue to monitor and notify MIRROR SPECIALIST and MD with acute changes or concerns. 06/19/2025 6:23 PM Kenny Perez RN * Patient Violence Risk Assessment Question Answer Date of Assessment Author History of Violence: In the past 12 hours has the PATIENT exhibited any of the following? None 06/25/2025 8:00 AM Bella Thomas RN Potential for Violence: In the past 12 hours has the PATIENT exhibited any of the following? None 06/25/2025 8:00 AM Bella Thomas RN Risk No identified risk 06/25/2025 8:00 AM Bella Thomas RN History of Violence: In the past 12 hours has a PARTNER IN CARE of the patient exhibited any of the following? None 06/25/2025 8:00 AM Bella Thomas RN * Malnutrition Identification Question Answer Date of Assessment Author Unable to Complete Exam Potential for pa tient discomfort/ agitation 06/25/2025 12:[address] Malnutrition Identified Additional Infor mation Needed 06/25/2025 12:[address] * Mobility Question Answer Date of Assessment Author Ambulation Moderately independe nt (Device);Stand by 06/25/2025 8:00 AM Bella Thomas RN * Airway Question Answer Date of Assessment Author Airway Patency Patent 06/19/2025 12:00 AM Alize Molina RN Airway (WDL) WDL 06/19/2025 12:00 AM Alize Ambrose RN * Breathing Question Answer Date of Assessment Author Breathing (WD) WDL 06/19/2025 12:00 AM Alize Farnsworth RN * Circulation Question Answer Date of Assessment Author Circulation ([facility]) X 06/19/2025 12:00 AM Alize Mast RN * Disability Question Answer Date of Assessment Author Disability (WD) WD 06/19/2025 12:00 AM Alize Mast RN * Restart Vitals Timer Answer Date of Assessment Author Yes 06/25/2025 11:40 AM Maria Dolores Ford * IBW/kg (Calculated) Answer Date of Assessment Author 56.9 06/17/2025 4:27 PM Precious Rivera RN * STOP-Bang Questionnaire Question Answer Date of Assessment Author Do you snore loudly? 0 06/20/2025 8:49 PM Gladys Casillas RN Do you often feel tired or fatigued after your sleep? 1 06/20/2025 8:49 PM Gladys Crook RN Has anyone ever observed you stop breathing in your sleep? 1 06/20/2025 8:49 PM Gladys Gross RN Do you have or are you being treated for high blood pressure? 1 06/20/2025 8:49 PM Gladys Crook RN Is BMI greater than 35 kg/m2? 0=No 06/20/2025 8:49 PM Gladys Crook RN Age older than 50 years old? 1=Yes 06/20/2025 8 :49 PM Gladys Crook RN Is your neck circumference greater than 17 inches (Male) or 16 inches (Female)? 1 06/20/2025 8:49 PM Neetu Crook RN Gender - Male 1=Yes 06/20/2025 8:49 PM Gladys Bledsoe RN STOP-Bang Total Score 6 06/20/2025 8:49 PM Gladys Crook RN Recent BMI (Calculated) 33.2 06/20/2025 8:49 P M Gladys Crook RN * Grooming Question Answer Date of Assessment Author Grooming Interventions 06/22/2025 2:55 PM Sultana Mix Grooming Where Assessed Chair level 06/22/2025 2:55 P M Sultana Mix Grooming Level of Assistance Setup 06/22/2025 2 :55 PM Sultana Mix * Dynamic Standing Balance Question Answer Date of Assessment Author Dynamic Standing Level of Assistance Minimum assistance 06/18/2025 10:49 AM Key Conrad * General Question Answer Date of Assessment Author Next OT Reassessment 26308 06/18/2025 10:49 AM Key Conrad Patient/Family Goals Statement Pt consent to tx 06/18/2025 10:49 AM Key Conrad * Home Living Question Answer Date of Assessment Author Home Type Apartment 06/18/2025 10:49 AM Key Doyle Home Living Comments Pt reports he can d /c to his daughter's house out of town for [place] where he will have 24hr assist. Unable to verify. 06/18/2025 10:49 AM Key Conrad Home Layout One level 06/18/2025 10:49 AM Key Doyle Home Adaptive Equipment Cane;shower chair;Rollator 06/18/2025 10:49 AM Key Conrad Lives With Alone 06/18/2025 10:49 AM Key Doyle * Date of PT Session Question Answer Date of Assessment Author PT Initials SJ 06/22/2025 2:54 PM EST Lyssa Salmeron Date of PT Session [id number] 06/22/2025 2:54 PM EST Lyssa Barcenas * Pneumococcal Vaccine Screen - Year Round Question Answer Date of Assessment Author Have you ever had a pneumoni a vaccination? No 06/20/2025 8:50 PM Gladys Crook RN * Have you had an influenza vaccine this season? Answer Date of Assessment Author Unsure 06/25/2025 1:39 PM Perez Thomas RN * Calculated C-SSRS Risk Score (Lifetime/Recent) Answer Date of Assessment Author No Risk Indicated 06/25/2025 8:00 AM Bella Thomas RN * Prachi Coma Scale Question Answer Date of Assessment Author Best Eye Response Spontaneous 06/25/2025 12:00 PM Bella Thomas RN Best Verbal Response Oriented 06/25/2025 12:00 PM Bella Thomas RN Best Motor Response Follows commands 06/25/2025 12:00 PM Bella Thomas RN [place] Coma Scale Score 15 06/25/2025 12:00 PM Bella Thomas RN * EASI ?? (Elder Abuse Suspicion Index) Question Answer Date of Assessment Author Have you relied on people fo r any of the following: bathing, dressing, shopping, banking, or meals? 0 06/17/2025 4:41 PM Precious Rivera RN Has anyone prevented you fro m getting food, clothes, medication, glasses, hearing aids, or medical care, or from being with people you wanted to be with? 0 06/17/2025 4:41 PM Precious iRvera RN Have you been upset beacuse someone talked to you in a way that made you feel shamed or threatened? 0 06/17/2025 4:41 PM Precious Rivera RN Has anyone tried to force yo u to sign papers or to use your money against your will? 0 06/17/2025 4:41 PM Ed Rivera RN Has anyone made you afraid, touched you in ways that you did not want, or hurt you physically? 0 06/17/2025 4:41 PM Precious Rivera RN Elder abuse may be associate d with findings such as poor eye contact, withdrawn nature, malnourishment, hygiene issues, cuts, bruises, inappropriate clothing, or medication compliance issues. Did you notice any of these today?* 0 06/17/2025 4:41 PM Precious Rivera RN EASI Total Score 0 06/17/2025 4:41 PM Precious Rivera RN * Intake (mL) Question Answer Date of Assessment Author I.V. 30 06/18/2025 2:25 PM Ayaan Alvarado RN * Rapid Response Outcome Question Answer Date of Assessment Author Survival Yes 06/19/2025 9:55 PM Eliza Bahena RN Rapid Response Termination Due to Patient remained on floor 06/19/2025 9:55 PM Eliza Ross RN * Learning Assessment Question Answer Date of Assessment Author Education Level High school 06/17/2025 4:39 PM Precious Cortés RN Factors that Impact Ability to Learn None 06/17/2025 4:39 PM Precious Rivera RN Cultural Considerations None 06/17/2025 4:39 P M Precious Rivera RN Religion Considerations None 06/17/2025 4:39 PM Precious Rivera RN * Abuse Screen Question Answer Date of Assessment Author Are you or have you been threatened or abused physically, emotionally, or sexually by a partner, spouse, or family member? No 06/17/2025 4:38 PM Precious Rivera RN * KINDER 1 Fall Risk Factor Assessment Question Answer Date of Assessment Author Presented to ED because of fall 0 06/17/2025 4:38 PM Precious Rivera RN Age > 70 0 06/17/2025 4:38 PM Precious Rivera RN Intoxicated with alcohol or substance confusion 0 06/17/2025 4:38 PM Precious Rivera RN Ambulates or transfers with assistive devices or assist 1 06/17/2025 4:38 PM Precious Rivera RN Unable to ambulate or transfer 0 06/17/2025 4:38 PM Precious Rivera RN Nursing judgement 1 06/17/2025 4:3 8 PM Precious Rivera RN KINDER 1 Fall Risk Score 2 025 4:38 PM Precious Rivera RN High Fall Risk Interventions for Scores 1 and above Bed in lowest position and locked;Fall risk bundle components in place as defined below;Non-skid socks on patient as appropriate;Alarms set and confirmed;Side rails raised;Call light within reach;Following general safety rules;Patient/family told to always call for assistance 06/17/2025 4:38 PM Precious Rivera RN * Geriatric Triage Risk Screening Tool (TRST) Question Answer Date of Assessment Author TRST Assessment Total 3 06/17/2025 4:41 PM Precious Rivera RN Cognitive impairment 0 06/17/2025 4:41 PM Precious Groves RN Five or more medications 1 06/17/2025 4:41 PM Precious Rivera RN Difficulty walking/ transferring, or recent falls 1 06/17/2025 4:41 PM Precious Locke RN ED use in the last 30 days o r hospitalization in previous 90 days 1 06/17/2025 4:41 PM Precious Rivera RN Lives alone and/ or no caregiver 0 06/17/20 25 4:41 PM Precious Rivera RN ED staff concerns 0 06/17/2025 4:41 PM Precious Rivera RN * Bessie Suicide Severity Rating Scale Question Answer Date of Assessment Author Is patient awake, alert, and able to answer questions appropriately? Yes 06/17/2025 4:38 PM Precious Rivera RN * Patient Belongings Placed in Locker Question Answer Date of Assessment Author Clothing Pants;Shirt;Footwear ;Jacket/coat 06/17/2025 4:39 PM Precious Rivera RN Belongings at Bedside Medical equipment;Clothing 06/17/2025 4:39 PM Precious Rivera RN Medical Equipment Walker 06/17/2025 4:39 PM Precious Rivera RN * Peripheral Vascular Question Answer Date of Assessment Author Peripheral Vascular (WDL) X 06/17/2025 4:42 PM Precious Rivera RN * Weight in (lb) to have BMI = 25 Answer Date of Assessment Author 140.8 06/17/2025 4:27 PM Precious Rivera RN * BMI (Calculated) Answer Date of Assessment Author 29.2 06/25/2025 4:20 AM EST Liu, Ti na * Percent Excess Weight Loss Answer Date of Assessment Author 0 06/17/2025 4:27 PM Precious Rivera RN * Weight Change Since Preop Answer Date of Assessment Author 74.7 06/25/2025 4:20 AM EST Liu, Ti na * Initial Excess Weight Answer Date of Assessment Author -56.25 06/17/2025 4:27 PM Precious Rivera RN * IBW in kg (Bariatric) Answer Date of Assessment Author 56.25 06/17/2025 4:27 PM Precious Rivera RN * IBW in lb (Bariatric) Answer Date of Assessment Author 124 06/17/2025 4:27 PM Precious Rivera RN * Weight Change Since Last Visit Answer Date of Assessment Author 0 06/25/2025 4:20 AM KIKO Liu Ti na * Percent of IBW Answer Date of Assessment Author 175.3 06/17/2025 4:27 PM Precious Rivera RN * EBW (kg) Answer Date of Assessment Author 42.33 06/17/2025 4:27 PM Precious Rivera RN * EBW (lb) Answer Date of Assessment Author 93.37 06/17/2025 4:27 PM Precious Rivera RN * Difference in Weight Since Last Visit Answer Date of Assessment Author 0 06/25/2025 4:20 AM EST Liu Ti na * Housing Circumstances-Z Codes Question Answer Date of Assessment Author Housing Circumstances (selec t all that apply) None Applicable 06/18/2025 11:08 AM EST Miguel A Mayo * Pain Type Answer Date of Assessment Author Chronic pain 06/25/2025 11:47 AM EST Bella Boland RN * Temp (in Celsius) for [place] IV Answer Date of Assessment Author 36.6 06/25/2025 3:48 PM EST AudreyMaria Dolores salas * Pain Assessment Question Answer Date of Assessment Author Patient is asleep Yes, assume pain is decreased 06/25/2025 12:30 PM Bella Thomas RN Clinical Progression Rapidly improving 06/24/2025 2:40 AM EST Giovany Gibbs RN * Nutrition Question Answer Date of Assessment Author Fluid Restrictions 1800 ml 06/24/2025 8:00 PM EST Marianna Saeed RN Diet Type Regular;2 gram sodiu m diet;Cardiac;1800 mL Fluid Restriction;Low potassium 06/25/2025 4:00 AM Marianna Hawk RN Feeding Able to feed self 06/25/2025 8:00 AM Bella Thomas RN Appetite Fair 06/24/2025 8:00 PM EST Marianna Latham RN * IBW/kg (Calculated) Answer Date of Assessment Author 56.9 06/17/2025 4:27 PM EST Precious Aguilar RN * Adult Low Range Vt 6mL/kg Answer Date of Assessment Author 341.4 06/17/2025 4:27 PM EST Precious Aguilar RN * Adult Moderate Range Vt 8mL/kg Answer Date of Assessment Author 455.2 06/17/2025 4:27 PM Precious Rivera RN * Adult High Range Vt 10mL/kg Answer Date of Assessment Author 569 06/17/2025 4:27 PM Precious Rivera RN * Respiratory Interventions Question Answer Date of Assessment Author Respiratory Interventions Cough and deep breathing 06/25/2025 8:00 AM Bella Thomas RN * Cough and Deep Breathe Question Answer Date of Assessment Author Cough And Deep Breathing done independently per patient 06/25/2025 8:00 AM Bella Thomas RN * Genitourinary Additional Assessments Question Answer Date of Assessment Author Genitourinary Additional Assessments No 06/25/2025 4:00 AM Rochelle Hawk RN * Integumentary Question Answer Date of Assessment Author Skin Color Appropriate for ethnicity 06/25/2025 12:00 PM Bella Thomas RN Skin Condition/Temp Warm;Dry 06/25/2025 1 2:00 PM Bella Thomas RN Skin Integrity Bruising;Rash;Redness 06/25/2025 12:00 PM Bella Thomas RN Skin Turgor Epidermis thin with loss of subcutaneous tissue 06/25/2025 12:00 PM Bella Thomas RN Skin Tone Medium 06/19/2025 12:00 PM Iván Maldonado RN Bruising Characteristics scattered 025 8:00 AM Bella Thomas RN Integumentary (WDL) X 06/25/2025 1 2:00 PM Bella Thomas RN Rash Location scattered 06/25/2025 8:00 AM Bella Thomas RN Rash Characteristics itchy 06/25/2025 8:00 AM Bella Thomas RN Redness Location back 06/25/2025 8:00 AM Bella Thomas RN Redness Characteristics blanchable 06/25/20 8:00 AM Bella Thomas RN * Pain Score Answer Date of Assessment Author 10 06/25/2025 11:47 AM Bella Thomas RN * Confusion Assessment Method (CAM) Question Answer Date of Assessment Author Acute Onset and Fluctuating Course (1A) No 06/25/2025 8:00 AM Bella Thomas RN * Confusion Assessment Method-ICU (CAM-ICU/PCAM-ICU) Question Answer Date of Assessment Author Feature 1: Acute Onset or Fluctuating Course Negative 06/23/2025 8:00 PM Robb Pierce RN Overall CAM-ICU/PCAM-ICU Negative 06/23/2025 8:00 PM Robb Pierce RN * Feature 3: Altered Level of Consciousness Answer Date of Assessment Author Negative 06/25/2025 8:00 AM Perez Thomas RN * Sedation Scales Question Answer Date of Assessment Author Sedation Scale Used Lehman Agitation Sedation Scale 06/25/2025 8:00 AM Bella Thomas RN RASS 0 06/25/2025 8:00 AM Bella Delgado RN Pasero Opioid-Induced Sedation Scale (POSS) 1 06/25/2025 8:00 AM Ivette Thomas RN * Urine Output/Assessment Question Answer Date of Assessment Author Urine 1000 06/23/2025 12:56 AM EST Dustin Nickerson Urine Color Yellow/straw 06/25/2025 12:00 PM Bella Ricketts RN Urine Appearance Concentrated 06/25/2025 12:00 PM Bella Thomas RN * Stool Output/Assessment Question Answer Date of Assessment Author Unmeasured Stool Occurrence (hourly total) 1 06/25/2025 1:00 PM Bella Thomas RN Stool Color Brown 06/25/2025 1:00 PM Bella Delgado RN Stool Amount Small 06/25/2025 1:00 PM Bella Delgado RN Stool Appearance Formed 06/25/2025 1:00 PM Bella Paulino RN [place] Stool Assessment Chicken nuggets 06/25/2025 1: 00 PM Bella Thomas RN * Fall Risk Calculated Score Answer Date of Assessment Author [place] High 06/25/2025 8:00 AM Perez Thomas RN * Patient Specific Goals Question Answer Date of Assessment Author Patient/Family-Specific Goals (Include Timeframe) Patient will remain free from injury throughout the shift 06/25/2025 8:00 AM Bella Thomas RN Individualized Care Needs safety 2024 8:00 AM Bella Thomas RN Anxieties, Fears or Concerns denies 06/25/2025 8:00 AM Bella Thomas RN * Delirium Assessment Question Answer Date of Assessment Author Delirium Prevention & Management Yes 06/25/2025 8:00 AM Bella Thomas RN Delirium Prevention & Management: Early Mobility Ambulate to extent of patient's ability;Up to chair for meals;Educate patient and family about the benfits of early mobility in the hospital 06/25/2025 8:00 AM Bella Thomas RN Delirium Prevention & Management: Cognitive Engagement Emotional support provided;Delirium prevention education provided to patient and family 06/25/2025 8:00 AM Bella Thomas RN Delirium Prevention & Management: Optimize Sleep/Wake Cycles Calming techniques provided;Natural light during the day 06/25/2025 8:00 AM Bella Thomas RN Delirium Scale Used Confusion Assessment Method 06/25/2025 8:00 AM Bella Thomas RN * Mini Nutritional Assessment/Screening (Adults 65 and Older) Question Answer Date of Assessment Author A. Has food intake declined over the past 3 months due to loss of appetite, digestive problems, chewing or swallowing difficulties? 2 06/17/2025 4:41 PM Precious Rivera RN B. Weight loss during the 3 months 3 06/17/2025 4:41 PM Precious Rivera RN C. Mobility 1 06/17/2025 4:41 PM EST Precious Garcia RN D. Has suffered psychologica l stress or acute disease in the past 3 months? 2 06/17/2025 4:41 PM Precious Rivera RN E. Neuropsychological problems 2 06/17/2025 4:41 PM Precious Rivera RN * F1. MNA Body Mass Index (BMI) (Weight in kg)/(Height in m)2 Answer Date of Assessment Author 3 06/17/2025 4:41 PM Precious Rivera RN * Mini Nutritional Screening Score Answer Date of Assessment Author 13 06/17/2025 4:41 PM Precious Rivera RN * Assume Pain is Present Answer Date of Assessment Author No 06/25/2025 11:47 AM Bella Thomas RN * Pain Assessment Answer Date of Assessment Author 0-10 (Adult DVPRS/Peds 0-10) 06/25/2025 11:47 AM Bella Thomas RN * Unplanned Readmission Scores Question Answer Date of Assessment Author Unplanned Readmission Score 29.26 06/25/2025 4: 00 PM EST Luis Batchq * [place] Coma Scale Numeric Answer Date of Assessment Author 15 06/25/2025 12:00 PM Bella Thomas RN * Elevate heels task - custom formula Answer Date of Assessment Author 1 06/21/2025 8:00 PM Gladys Crook RN * Neurological Question Answer Date of Assessment Author Neuro Pertinent Negatives Alert and oriented x 4;Speech clear 06/18/2025 10:47 AM Elvira Queen RN Neuro (WDL) WDL 06/17/2025 7:56 PM Joyce Zelaya * Cardiac Question Answer Date of Assessment Author Bedside Hospital Recruiter On Yes 06/19/2025 12:00 AM Alize Mast RN Bedside Cardiac Audible Yes 06/19/2025 12:00 AM Alize Mast RN Bedside Cardiac Alarms Set Yes 06/19/2025 12:00 AM Alize Mast RN Chest Pain Present No 06/19/2025 12:00 AM Alize Singleton RN Cardiac Pertinent Negatives Heart rate regular 06/19/2025 12:00 AM Alize Mast RN Cardiac (WDL) X 06/19/2025 12:00 AM Alize Pina RN * Respiratory Question Answer Date of Assessment Author Ability to Speak Speaking in full sentences 06/17/2025 7:56 PM Joyce Calixto Respiratory Pertinent Negatives Respirations regular/unlabored 06/17/2025 7:56 PM Joyce Calixto Respiratory (WDL) X 06/17/2025 7:56 PM Joyce Calixto * Vitals Timer Question Answer Date of Assessment Author Update Vitals Alert Interval 240 06/19/2025 4 :43 AM Alize Mast RN Restart Vitals Timer Yes 06/25/2025 11:40 AM Maria Dolores Ford Restart Vitals Timer Yes 06/19/2025 8:18 AM Binta Rich * Hourly Rounding Question Answer Date of Assessment Author Activity Assistance One person assist 06/19/2025 1:00 AM Alize Mast RN Toileting Offered and refused 06/19/2025 1:00 AM Alize Singleton RN Call Light Call light present a nd within reach 06/19/2025 1:00 AM Alize Mast RN Rest/ Sleep No problem identified;Resting;Robert eared asleep 06/19/2025 1:00 AM Alize Mast, DEANNA Rest/ Sleep Enhancement Care clustered t o minimize awakenings 06/18/2025 10:30 AM Elvira Queen RN Completed Hourly Rounding Yes 06/19/2025 1:00 AM Alize Mast, DEANNA Plan of Care Reviewed With Patient 06/19/2025 12:00 AM Alize Mast RN * Standardized Assessments Question Answer Date of Assessment Author Standardized Assessments [facility] 6-Clicks Mobility Assessment 06/18/2025 10:49 AM Lissette Betts * [facility] 6-Click Daily Activities Question Answer Date of Assessment Author Help from Other: Don/Doff Re gular Lower Body Clothings 2 06/18/2025 10:49 AM Reyes Conrad Help From Other: Bathing 2 06/18/2025 10:49 AM EST Key Pitt Help From Other: Toileting 2 06/18/2025 10: 49 AM EST Key Pitt Help From Other: Don/Doff Up per Body Clothings 3 06/18/2025 10:49 AM EST Key Pitt Help From Other: Grooming 3 06/18/2025 10:4 9 AM EST Key Pitt Help From Other: Eating Meals 4 06/18/2025 10:49 AM EST Key Pitt [facility] 6 Click - Daily Activi ties Score 16 06/18/2025 10:49 AM EST Key Pitt * Standardized Tests Question Answer Date of Assessment Author Standardized Tests [facility] 6-Clicks 06/18/2025 10:49 AM EST Key Pitt * Elopement Risk Screen Question Answer Date of Assessment Author Does the patient exhibit any of the following behaviors? No 06/25/2025 8:00 AM Celine Thomas RN Does the patient have a cour t ordered legal guardian? No 06/25/2025 8:00 AM Aury Thomas RN * Manual Muscle Testing - LLE Question Answer Date of Assessment Author Manual Muscle Testing WFL 06/18/2025 10:49 AM Key Conrad * Manual Muscle Testing - RUE Question Answer Date of Assessment Author Manual Muscle Testing - RUE WFL 06/18/2025 10 :49 AM Key Conrad * Manual Muscle Testing - LUE Question Answer Date of Assessment Author Manual Muscle Testing - LUE WFL 06/18/2025 10 :49 AM Key Conrad * Dynamic Sitting Balance Question Answer Date of Assessment Author Level of Assistance Standby assisst 06/18/2025 10:49 A M Key Conrad * Cognition Question Answer Date of Assessment Author Orientation Level Oriented X4 06/18/2025 10:49 AM Key Conrad Method of Communication Verbal 06/18/2025 10:49 AM Key Conrad * Static Sitting Balance Question Answer Date of Assessment Author Static Sitting-Level of Assistance Standby assist 06/18/2025 10:49 AM Key Conrad * Static Standing Balance Question Answer Date of Assessment Author Static Standing-Level of Assistance Contact guard 06/18/2025 10:49 AM Key Conrad * OT Assessment Question Answer Date of Assessment Author OT Assessment Results Impaired ADL performance;Impaired IADL performance;Impaired functional mobility;Decreased endurance/ventilation/g as exchange;Impaired postural/trunk control;Impaired judgment during ADL;Impaired balance 06/18/2025 10:49 AM Key Conrad Occupational Profile Expanded review of medical/therapy records and additional review of physical, cognitive, or psychosocial history 06/18/2025 10:49 AM Key Conrad Clinical Decision Making Moderate 025 10:49 AM Key Conrad Overall Eval complexity Moderate 06/18/20 25 10:49 AM Key Conrad Rehab Potential Good, to achieve sta kalyani therapy goals 06/18/2025 10:49 AM Key Conrad Performance Deficits Activities of daily living (ADLs);Instrumental activities of daily living (IADLs);Habits;Routines ;Roles 06/18/2025 10:49 AM Key Conrad * C-SSRS (Frequent Screener) Question Answer Date of Assessment Author Is patient awake, alert, and able/willing to answer questions appropriately? Yes 06/25/2025 8:00 AM Bella Thomas RN 1. Wish to be (Past 1 Month) No 06/25/2025 8:00 AM Bella Thomas RN 2. Non-Specific Active Suici shawn Thoughts (Past 1 Month) No 06/25/2025 8:00 AM Aury Thomas RN 6. Suicidal Behavior (Lifetime) No 8:00 AM Bella Thomas, DEANNA * Discharge Planning Continued Question Answer Date of Assessment Author Transportation Home at Discharge Family/Friend will Provide 06/25/2025 9:42 AM Lupe Branch RN * [facility] 6-Clicks Mobility Assessment Question Answer Date of Assessment Author Difficulty patient has turni ng over in bed (including adjusting bedclothes, sheets, and blankets)? 2 06/18/2025 10:49 AM Lissette Mac Difficulty patient has sitti ng down on and standing up from a chair with arms (wheelchair, bedside commode, etc.)? 3 06/18/2025 10:49 AM Lissette Betts Difficulty patient has movin g from lying on back to sitting on the side of the bed? 2 06/18/2025 10:49 AM Lissette Betts How much help does the patie nt need moving to and from a bed to a chair (including a wheelchair)? 3 06/18/2025 10:49 AM Carlos Betts How much help does the patie nt need to walk in hospital room? 3 06/18/2025 10:49 AM Carlos Betts How much help does the patie nt need climbing 3-5 steps with a railing? 2 06/18/2025 10:49 AM Lissette Mac [facility] 6-Clicks Mobility Asse ssment Total 15 06/18/2025 10:49 AM Lissette Betts * PT Therapeutic Procedures Time Entry Question Answer Date of Assessment Author Therapeutic Exercise Time Entry 10 5 3:08 PM Lyssa Vargas Therapeutic Activity Time Entry 19 5 3:08 PM Lyssa Vargas * HEENT Question Answer Date of Assessment Author KALYANI (CELIO) X 06/25/2025 12:00 PM Bella Ricketts RN R Eye Mildly impaired vision 06/25/2025 12:00 P M Bella Thomas RN L Eye Mildly impaired vision 06/25/2025 12:00 P M Bella Thomas RN R Ear Mildly impaired hearing 06/25/2025 12:00 PM Bella Thomas RN L Ear Mildly impaired hearing 06/25/2025 12:00 PM Bella Thomas RN Voice Other (Comment) 06/21/2025 4:00 PM EST Snehal Azevedo RN Teeth Missing teeth 06/25/2025 12:00 PM Bella Wynne RN * Stabilization Measures Answer Date of Assessment Author legs elevated 06/25/2025 8:00 AM Perez Thomas RN * Supportive Measures Answer Date of Assessment Author active listening utilized;ve rbalization of feelings encouraged 06/25/2025 8:00 AM Bella Thomas RN * Oral Nutrition Promotion Answer Date of Assessment Author physical activity promoted 06/25/2025 8:00 AM ES Bella Villagomez RN * Pressure Reduction Techniques Answer Date of Assessment Author frequent weight shift encouraged 06/25/2025 3:14 AM Marianna Hawk RN * Dysrhythmia Management Answer Date of Assessment Author forceful cough encouraged;Va lsalva maneuver encouraged 06/21/2025 8:00 AM Snehal Singh RN * Pain Management Interventions Answer Date of Assessment Author medication (see MAR) 06/25/2025 11:47 AM Bella Wynne RN * Fluid/Electrolyte Management Answer Date of Assessment Author fluids restricted 06/25/2025 8:00 AM Bella Thomas RN * Airway/Ventilation Management Answer Date of Assessment Author calming measures promoted;po sition adjusted;oxygen therapy provided 06/25/2025 8:00 AM Bella Thomas R N * Trust Relationship/Rapport Answer Date of Assessment Author care explained;choices provided;thoughts/feelings acknowledged 06/25/2025 8:00 AM Vignesh Thomas RN * Pressure Reduction Devices Answer Date of Assessment Author positioning supports utilized 06/25/2025 8:00 AM Bella Thomas RN * Environmental Support Answer Date of Assessment Author calm environment promoted 06/25/2025 8:00 AM Bella Thomas RN * Nutrition Interventions Answer Date of Assessment Author food preferences provided 06/25/2025 8:00 AM Bella Thomas RN * Infection Prevention Answer Date of Assessment Author hand hygiene promoted 06/24/2025 8:00 AM Bella Wynne RN * Family/Support System Care Answer Date of Assessment Author support provided 06/25/2025 8:00 AM Bella Thomas RN * Medication Review/Management Answer Date of Assessment Author medications reviewed 06/24/2025 12:57 PM Bella Wynne RN * Skin Protection Answer Date of Assessment Author incontinence pads utilized;t ransparent dressing maintained 06/25/2025 8:00 AM Bella Thomas RN * Self-Care Promotion Answer Date of Assessment Author independence encouraged;adap tive equipment use encouraged 06/25/2025 8:00 AM Bella Thomas RN * Safety Interventions Question Answer Date of Assessment Author Safety Precautions/Falls Reduction assistive device/personal items within reach;fall reduction program maintained 06/17/2025 4:40 PM Precious Rivera RN All Alarms alarm(s) activated a nd audible 06/17/2025 4:40 PM Precious Rivera RN * General Emergency Care CPG Interventions Question Answer Date of Assessment Author Coping Interventions anticipatory guidan ce provided;safe, supportive environment facilitated 06/17/2025 4:40 PM Precious Rivera RN General Care Management calm environment promoted;monitored for physiologic status changes 06/17/2025 4:40 PM Precious Rivera RN * Discharge Needs Assessment Question Answer Date of Assessment Author Discharge Facility/Level of Care Needs 1-Home or Self Care 06/25/2025 9:42 AM Lupe Branch RN Equipment Needed After Discharge none 06/25/2025 9:42 AM Lupe Branch, floor helper Coordination/Progress discharge 06/25/2025 9:42 AM Lupe Branch RN Transportation Anticipated family or fri end will provide 06/25/2025 9:42 AM Lupe Branch RN Transportation Concerns none 06/25/20 9:42 AM Lupe Branch RN Concerns to be Addressed no discharge ne eds identified 06/25/2025 9:42 AM Lupe Branch RN Readmission Within the Last 30 Days no previous admission in last 30 days 06/25/2025 9:42 AM Lupe Branch RN Patient/Family Anticipated Services at Transition none 06/25/2025 9:42 AM Lupe Branch RN Patient's Choice of Community Agency(s) n/a 06/25/2025 9:42 AM Lupe Branch RN Patient/Family Anticipates Transition to home with family 06/25/2025 9:42 AM Lupe Branhc RN Offered/Gave Vendor List no 025 9:42 AM Lupe Branch, RN * Precautions Question Answer Date of Assessment Author Medical Precautions Fall precautions 06/18/2025 10:49 AM Key Conrad * Date of OT Session Question Answer Date of Assessment Author OT Initials LS 06/22/2025 2:55 PM EST Card Tape Converter Operator s, Sultana Date of OT Session [id number] 06/22/2025 2:55 PM Xochitl Mixa * Participants in Care Question Answer Date of Assessment Author 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 06/22/2025 2:55 PM EST Bernardo s Sultana Family/Caregiver Present N 06/22/2025 2:55 PM EST Keaton Sultana * Presentation Question Answer Date of Assessment Author Lines and Tubes Telemetry 06/22/2025 2:55 PM EST Pam culp Sultana Pre-Session Supine;Head of bed elevated;Lines intact 06/22/2025 2:55 PM EST Bernardos Sultana Post-Session Sitting in chair;Pio l light in reach;Lines intact;Chair alarm;RN notified 06/22/2025 2:55 PM EST Keaton Sultana Pre-Session Comments RN consent to tx 06/22/2025 2:55 PM EST Bernardos Sultana Post-Session Comments Needs met 06/22/2025 2:55 PM EST Keaton Sultana * [facility] Question Answer Date of Assessment Author CARLOS M Daily Mobility Score 4 06/22/2025 2: 55 PM EST BernardosXochitla * Sensation Question Answer Date of Assessment Author Light Touch: Right Upper Extremity Intact 2024 10:49 AM Lissette Betts * Sensation Question Answer Date of Assessment Author Light Touch: Left Upper Extremity Intact 10:49 AM Lissette Betts * Sensation Question Answer Date of Assessment Author Light Touch: Right Lower Extremity Mild impairment 06/18/2025 10:49 AM Lissette Betts * Sensation Question Answer Date of Assessment Author Light Touch: Left Lower Extremity Mild impairment 06/18/2025 10:49 AM Lissette Betts * Bed Mobility Exam: Scooting/Bridging Question Answer Date of Assessment Author Level of [place] Contact guard 06/22/2025 2:55 PM EST Siders, Sultana Physical/Nonphysical Assist Verbal Cues; Set-up required 06/22/2025 2:55 PM EST Sultana Pugh * Bed Mobility Exam: Supine to Sit Question Answer Date of Assessment Author Level of [place] Minimum assist (75 % patient's effort) 06/22/2025 2:55 PM EST Bernardos Sultana Physical/Nonphysical Assist HOB elevated ;Verbal Cues;Set-up required 06/22/2025 2:55 PM EST Sultana Pugh * Bed Mobility Exam: Sit to Supine Question Answer Date of Assessment Author Level of [place] Moderate assist (5 0% patient's effort) 06/18/2025 10:49 AM Lissette Betts Physical/Nonphysical Assist Verbal Cues;Nonverbal cues (demo/gestures);Addit ional assist utilized for safety 06/18/2025 10:49 AM EST Key Pitt * Transfer Exam: Sit to stand Question Answer Date of Assessment Author Level of [place] Contact guard 06/22/2025 2:55 PM EST Siders, Sultana Physical/Nonphysical Assist Verbal Cues; Set-up required 06/22/2025 2:55 PM EST Siders, Sultana Assistive Device Rollator 06/22/2025 2:55 PM EST Sultana Castillo * Transfer Exam: Stand to Sit Question Answer Date of Assessment Author Level of [place] Contact guard 06/22/2025 2:55 PM EST Siders, Sultana Physical/Nonphysical Assist Verbal Cues; Set-up required 06/22/2025 2:55 PM EST Bernardos, Sultana Assistive Device Rollator 06/22/2025 2:55 PM EST Devin steveherveSultana * Transfer Exam: Bed to Chair/Chair to Bed Question Answer Date of Assessment Author Type of Transfer Sidesteps 06/22/2025 2:55 PM KIKO Devin Sultana barker Level of [place] Contact guard 06/22/2025 2:55 PM EST Sultana Pugh Physical/Nonphysical Assist Additional assist utilized for safety;Verbal Cues;Set-up required 06/22/2025 2:55 PM EST Siders, Sultana Assistive Device Rollator 06/22/2025 2:55 PM EST Devin steveherveSultana * Interventions Question Answer Date of Assessment Author Self-Care Interventions OT provides max A for all LB BADL and mod A for toileting 08/02 pt compromised truncal mobility and eccentrics as well as delayed righing/protective reaction due to debility and decreased stamina; with this assist pt better able to demonstrate self-recruitment during static sit with ability to participate in anterior pericare with LOYOLA for item-retrieval as well as increased reserves to better participate in grooming BADL at EOB (he requires LOYOLA for item-retrieval). Pt able to plan and sequence BADL task appropriately with normal understanding of item use and recognition. OT educates pt on the importance of energy conservation and supervision (initial) when participating in BADL (showering) to promote safe ADL participation and to decrease risk of falls. OT educates pt on importance of seated UB/LB dressing as he recovers as well as acquiring a shower chair/TTB to promote safe bathing. Pt verbalize understanding. 06/18/2025 10:49 AM eKy Conrad * Lower Extremity Dressing Question Answer Date of Assessment Author LE Dressing Interventions 06/22/2025 2:55 PM Sultana Mix LE Dressing Where Assessed Edge of bed 06/22/2025 2:5 5 PM Sultana Mix Sock Level of Assistance Dependent 06/22/2025 2:55 PM Sultana Mix Shoe Level of Assistance Dependent 06/18/2025 10:49 AM Key Conrad Adult Briefs Level of Assistance Maximum assistance 06/18/2025 10:49 AM Key Conrad * Toileting Question Answer Date of Assessment Author Toileting Interventions 06/22/20 2:55 PM EST SidersSultana Where Assessed Toilet;Other (Comment) 10:49 AM Key Conrad Toileting Level of Assistance Moderate assistance 06/22/2025 2:55 PM EST Siders Sultana * Cognition Question Answer Date of Assessment Author Mood/Behavior Alert 06/22/2025 2:55 PM EST Side rs, Sultana Overall Cognitive Status WFL 06/22/2025 2:55 PM EST Siders, Sultana Arousal/Alertness Appropriate response s to stimuli 06/22/2025 2:55 PM EST Siders, Sultana Single Step Commands Consistently 06/22/2025 2:[address] Siders, Sultana Multi-Step Commands Consistently 06/22/2025 2:55 PM ES T SidersXochitla * General Question Answer Date of Assessment Author Next PT Re-Assessment Date [id number] 06/18/2025 10: 49 AM Lissette Betts Patient/Family Goals Statement to feel better 06/18/2025 10:49 AM Lissette Betts * Plan Question Answer Date of Assessment Author Predicted Duration of Therapy 2 weeks 06/18/2025 10:49 AM Lissette Betts Discharge Recommendation Subacute rehab 025 10:49 AM Lissette Betts Equipment Recommended Defer to facility 06/18/20 10:49 AM Lissette Betts Planned PT Interventions Balance trainin g;Bed mobility training;Gait training;Transfer training;Functional Mobility 06/18/2025 10:49 AM Lissette Betts Therapy Frequency 2 - 5 times per week 10:49 AM Lissette Betts * PT Assessment Question Answer Date of Assessment Author Activity Limitations Inability to sit independently;Inability to ambulate household distances;Inability to complete ADLs independently;Inability to ambulate independently;Inability to ambulate community distances;Inability to transfer independently 06/18/2025 10:49 AM Lissette Betts Participation Restrictions Self-care;Home management;Community leisure 06/18/2025 10:49 AM Lissette Betts History Profile 1 - 2 personal facto rs and/or comorbidities 06/18/2025 10:49 AM Lissette Betts Impairments Decreased endurance, ventilation, and/or gas exchange;Impaired functional mobility/transfers;Impair ed balance;Impaired motor cordination/control;Impai red gait dynamics/performance 06/18/2025 10:49 AM Lissette Betts Evaluation/Treatment Tolerance Patient limited by fatigue 06/18/2025 10:49 AM Lissette Betts Diagnosis impaired functional mobility 06/18/2025 10:49 AM Lissette Betts Clinical Presentation Evolving clinical presentation with changing characteristics 06/18/2025 10:49 AM Lissette Betts Clinical Decision Making Moderate complexity 06/18/2025 10:49 AM Lissette Betts Rehab Potential Good, to achieve sta kalyani therapy goals 06/18/2025 10:49 AM Lissette Betts Activity Tolerance Tolerates 10 - 20 mi n activity with multiple rests 06/18/2025 10:49 AM Lissette Betts * Ambulation Question Answer Date of Assessment Author Distance 100 ft 06/18/2025 10:49 AM Lissette Shah Device Rollator 06/18/2025 10:49 AM Lissette Shah Assistance Minimum assistance 06/18/2025 10:49 AM Lissette Garza Ambulation Comments Shuffling gait, decreased gait speed, moderate forward trunk lean, tendency to utilize rollator outside [facility]. Cues provided for upright posture and safe use of rollator during ambulation. 06/18/2025 10:49 AM Lissette Betts * Plan of Care Reviewed With Answer Date of Assessment Author patient 06/25/2025 8:00 AM EST Perez Boland RN * Pressure Injury Prevention (PIP) Interventions Question Answer Date of Assessment Author Pressure Reducing Devices Pillow;Specialty bed;Preventative foam dressing 06/25/2025 4:00 AM EST Marianna Saeed RN Preventative Foam Dressing Location Coccyx 06/25/2025 8:00 AM EST Bella Boland RN Preventative Foam Dressing Intervention Applied 06/24/2025 2:53 AM EST Tamminga, Giovany W, RN Bed Type Acute Care Bed 06/25/2025 4:00 AM Marianna Greene RN * Vital Signs Question Answer Date of Assessment Author Heart Rate Source Monitor 06/25/2025 4:20 AM Marianna Hawk RN * Oxygen Therapy Question Answer Date of Assessment Author Oximetry Probe Site Location Left Digit 06/19/2025 4 :43 AM Alize Mast RN * Neurological Question Answer Date of Assessment Author Neuro (WDL) WDL 06/24/2025 12:00 AM EST Robb Van RN * Gastrointestinal Question Answer Date of Assessment Author Abdominal Tenderness Tenderness 06/25/2025 12:00 PM Bella Thomas RN Bowel Sounds (All Quadrants) Active 06/25/2025 12:00 PM Bella Thomas RN Gastrointestinal (WDL) X 12:00 PM Bella Thomas RN Abdomen Inspection Rounded;Distended 06/25/2025 12:00 PM Bella Thomas RN * Peripheral Vascular Question Answer Date of Assessment Author Peripheral Vascular (WDL) X 06/25/2025 12:00 PM Bella Thomas RN Generalized Edema Non-pitting 06/25/2025 12: 00 PM Bella Thomas RN Facial Edema Non-pitting 06/23/2025 4:00 PM Gladys Leal RN Perineal Edema +4 06/23/2025 4:00 PM Gladys Samuel RN Sacral Edema Non-pitting 06/23/2025 4:00 PM Gladys Leal RN RUE Edema +1 06/24/2025 12:00 AM Robb Pierce RN RLE Edema +2 06/25/2025 12:00 PM Bella Thomas RN LUE Edema +2 06/24/2025 12:00 AM Robb Pierce RN LLE Edema +2 06/25/2025 12:00 PM Bella Thomas RN Capillary Refill 3-4 seconds 06/25/2025 12:0 0 PM Bella Thomas RN Pulses L radial;R radial;R pedal;L pedal 06/25/2025 4:00 AM Marianna Hawk RN Cyanosis None 06/25/2025 4:00 AM EST Marianna Latham RN Edema Generalized;Right lower extremity;Left lower extremity 06/25/2025 12:00 PM Bella Thomas RN * RUAna Neurovascular Assessment Question Answer Date of Assessment Author RUE Capillary Refill 3-4 seconds 06/25/2025 4:00 AM E Marianna Elizabeth RN R Radial Pulse +2 06/25/2025 12:00 PM EST Bella Garza RN * LUE Neurovascular Assessment Question Answer Date of Assessment Author LUE Capillary Refill 3-4 seconds 06/25/2025 4:00 AM E Marianna Elizabeth RN L Radial Pulse +2 06/25/2025 12:00 PM EST Bella Garza RN * RLE Neurovascular Assessment Question Answer Date of Assessment Author RLE Capillary Refill 3-4 seconds 06/25/2025 4:00 AM E Marianna Elizabeth RN R Posterior Tibial Pulse +2 06/24/2025 12:00 AM EST Robb Covarrubias RN R Pedal Pulse +1 06/25/2025 12:00 PM EST Bella Chaudhary RN * LLE Neurovascular Assessment Question Answer Date of Assessment Author LLE Capillary Refill 3-4 seconds 06/25/2025 4:00 AM E Marianna Elizabeth RN L Posterior Tibial Pulse +2 06/24/2025 12:00 AM EST Robb Covarrubias RN L Pedal Pulse +1 06/25/2025 12:00 PM Bella Wynne RN * Musculoskeletal Question Answer Date of Assessment Author RUE Full movement 06/25/2025 12:00 PM Bella Thomas RN RLE Weakness;Swelling 06/25/2025 12: 00 PM Bella Thomas RN LUAna Full movement 06/25/2025 12:00 PM Bella Thomas RN LLE Weakness;Swelling 06/25/2025 12: 00 PM EST Bella Boland RN Musculoskeletal (WDL) X 06/25/2025 12:00 PM Bella Thomas RN Musculoskeletal Additional Assessments No 06/25/2025 4:00 AM EST Marianna Saeed RN * Genitalia Question Answer Date of Assessment Author Male Genitalia Intact 06/25/2025 12:00 PM EST Bella Garza RN * Psychosocial Question Answer Date of Assessment Author Psychological state Calm;Cooperative 06/25/2025 8:00 A M Bella Thomas RN Needs Expressed Denies 06/25/2025 4:00 AM Marianna Restrepo RN Psychosocial (WDL) WDL 06/25/2025 12 :00 PM EST Bella Boland RN Psychosocial Additional Assessments No 06/25/2025 4:00 AM EST Rochelle Saeed RN Ability to Express Feelings Able to express 06/24/2025 8:00 PM Rochelle Hawk RN Ability to Express Needs Able to express 06/24/2025 8: 00 PM Marianna Hawk RN Ability to Express Thoughts Able to express 06/24/2025 8:00 PM Rochelle Hawk RN Ability to Understand Others Understands 06/24/2025 8:00 PM EST Rochelle Saeed RN * Unmeasured Output Question Answer Date of Assessment Author Most Recent BM Date 23115 06/25/2025 9:00 AM Maria Dolores Arredondo * Intake Question Answer Date of Assessment Author Diet Supplements Other (Comment) 06/20/2025 4:32 PM Snehal Gudino RN * Output (mL) Question Answer Date of Assessment Author Urine Odor No odor 06/25/2025 9:00 AM Maria Dolores Lackey Urinary Incontinence No 06/25/2025 9:00 AM Maria Dolores Leon Lawson Care [place] Wipes Used Perineum cleansed with soap/water prior 06/25/2025 11:40 AM Maria Dolores Ford Bowel Incontinence No 06/25/2025 11 :40 AM EST Maria Dolores Ventura * [place] Fall Risk Question Answer Date of Assessment Author History of Falling, Immediat e or Within 3 Months 0 06/25/2025 8:00 AM Bella Thomas RN Secondary Diagnosis 0 06/25/2025 8:00 AM Bella Love RN Ambulatory Aid 15 06/25/2025 8:00 AM Bella Wynne RN Intravenous Therapy/Heparin Lock 20 06/25/20 8:00 AM Bella Thomas RN Gait/Transferring 10 06/25/2025 8:00 AM Bella Thomas RN Mental Status 0 06/25/2025 8:00 AM Bella Ricketts RN [place] Fall Risk Score 45 06/25/2025 8:00 AM Bella Thomas RN * Huber Scale Question Answer Date of Assessment Author Sensory Perceptions 3 06/25/2025 12:[address] Bella Boland RN Moisture 3 06/25/2025 12:00 PM Bella Ricketts RN Activity 3 06/25/2025 12:00 PM Bella Ricketts RN Mobility 3 06/25/2025 12:00 PM Bella Ricketts RN Nutrition 3 06/25/2025 12:00 PM Bella Ricketts RN Friction and Shear 3 06/25/2025 12:00 PM Bella Love RN Huber Scale Score 18 06/25/2025 12:00 PM Bella Love RN * BSA (Calculated - sq m) Answer Date of Assessment Author 1.82 06/25/2025 4:20 AM EST Liu, Ti na * BMI (Calculated) Answer Date of Assessment Author 29.18 06/25/2025 4:20 AM EST Liu, Ti na * Pain Location Answer Date of Assessment Author Back 06/25/2025 11:47 AM Bella Thomas RN * Pain Orientation Answer Date of Assessment Author Lower 06/25/2025 11:47 AM Bella Thomas RN * Cardiac Question Answer Date of Assessment Author Telemetry Strip Reviewed Yes, I have reviewed and acknowledged the strip measurements as interpreted by the CPT's 06/25/2025 8:00 AM Bella Thomas RN Cardiac Rhythm NSR 06/25/2025 12:00 PM Bella Thomas RN Ectopy Premature ventricula r contractions 06/25/2025 12:00 PM Bella Thomas RN Ectopy Frequency Occasional 06/25/2025 12:0 0 PM Bella Thomas RN Production Officer On Yes 06/25/2025 12:00 PM Bella Thomas RN Telemetry Audible Yes 06/25/2025 12: 00 PM Bella Thomas RN Telemetry Alarms Set Yes 06/25/2025 12:00 PM Bella Thomas RN Cardiac (WDL) X 06/25/2025 12:00 PM Bella Thomas RN Pacemaker No 06/25/2025 12:00 PM Bella Thomas RN Cardiac Regularity Regular 06/25/2025 12 :00 PM Bella Thomas RN Heart Sounds S1, S2 06/25/2025 12:00 PM Bella Thomas RN Telemetry/Hospital Recruiter Yes 06/25/2025 12:00 PM Bella Thomas RN Jugular Venous Distention (JVD) Yes 06/25/2025 12:00 PM Bella Thomas RN Cardiac Symptoms None 06/25/2025 12:0 0 PM Bella Thomas RN * Respiratory Question Answer Date of Assessment Author Bilateral Breath Sounds Clear;Diminished 06/25/2025 12 :00 PM Bella Thomas RN R Breath Sounds Clear 06/25/2025 4:00 AM Marianna Restrepo RN L Breath Sounds Clear 06/25/2025 4:00 AM Marianna Restrpeo RN Respiratory Pattern Regular 06/25/2025 12:[address] Bella Boland RN Chest Assessment Symmetrical 06/25/2025 4:00 AM Marianna Winston RN Cough Non-productive 06/25/2025 4:00 AM EST Marianna Telles RN Respiratory (WDL) X 06/25/2025 12:00 PM Bella Thomas RN Respiratory Additional Assessments No 06/25/2025 4:00 AM EST Rochelle Saeed RN Respiratory Effort Unlabored 06/25/2025 8:00 AM Bella Thomas RN Respiratory Depth/Rhythm Regular 06/25/2025 8:00 AM Bella Thomas RN Dyspnea Occurrence With exertion 06/25/2025 8:00 AM ES T Bella Boland RN * RLE ROM Assessment Question Answer Date of Assessment Author RLE Assessment [facility] 06/18/2025 10:49 AM EST Key Fitch * LLE ROM Assessment Question Answer Date of Assessment Author LLE Assessment [facility] 06/18/2025 10:49 AM EST Key Fitch * Vitals Question Answer Date of Assessment Author BP 90/57 06/25/2025 3:48 PM EST Maria Dolores Bales Temp 97.8 06/25/2025 3:48 PM EST Maria Dolores Bales Temp src Oral 06/25/2025 3:48 PM EST Maria Dolores Bales Pulse 94 06/25/2025 11:40 AM EST Maria Dolores Rushnig Resp 16 06/25/2025 11:40 AM EST Maria Dolores Rushing SpO2 91 06/25/2025 11:40 AM EST Maria Dolores Rushing Weight 2634.94 06/25/2025 4:20 AM EST Liu Consuelo O2 Flow Rate (L/min) 2 06/24/2025 3:15 PM E Apurva Guadarrama BP Location Right arm 06/25/2025 3:48 PM EST Maria Dolores Bales BP Method Automatic 06/25/2025 3:48 PM EST Maria Dolores Bales MAP (mmHg) 64 06/25/2025 3:48 PM EST Maria Dolores Bales Pulse Oximetry Type Continuous 06/25/2025 11:40 AM E Maria Dolores Hawley Patient Activity During SpO2 Measurement At rest 06/25/2025 11:40 AM EST Mey Ventura ia Oxygen Therapy None 06/25/2025 3:48 PM EST Maria Dolores Mobley O2 Delivery Method Nasal cannula 06/24/2025 3:15 PM Apurva Vidal Patient Position Sitting 06/25/2025 3:48 PM EST Maria Dolores Shepard * Point of Care Tests Question Answer Date of Assessment Author Provider Role Other (Comment) 06/24/2025 12:00 AM Robb Pierce RN Provider Name Bouchra Amezcua MD 06/24/2025 12:00 AM Robb George RN Method of Communication Secure message 06/24/2025 12:0 0 AM Robb Pierce RN Reason for Communication Evaluate 06/24/2025 12:00 AM Robb Pierce RN Response Other (Comment) 06/24/2025 12:00 AM Robb Marc RN * Patient Information Question Answer Date of Assessment Author Support System Immediate family;Other (Comment) 2024 11:08 AM Miguel A Bejarano * Activities of Daily Living Question Answer Date of Assessment Author Equipment Currently Used at Home walker, rolling;shower chair 06/18/2025 11:08 AM Miguel A Bejarano Living Arrangements Alone 06/18/2025 11:08 AM Miguel A Minaya Type of Residence Private residence 06/18/2025 11:08 A M Miguel A Bejarano * Income Information Question Answer Date of Assessment Author Income Source Retired 06/18/2025 11:08 AM Miguel A Peguero Income/Expense Information Income meets expenses 06/18/2025 11:08 AM Miguel A Bejarano Current Resources Utilized None 06/18/2025 11:08 AM Miguel A Bejarano * Advance Directives (For Healthcare) Question Answer Date of Assessment Author Advance Directive Not applicable 06/20/2025 8:48 PM Gladys Levy RN Pre-existing DNR/DNI Order No 06/20/2025 8:4 8 PM Gladys Crook RN Information Provided on Healthcare Directives No 06/20/2025 8:48 PM Gabo Crook RN Patient Requests Assistance No 06/20/2025 8:48 PM Gladys Crook RN Have you reviewed your Advance Directive and is it valid for this stay? No 06/20/2025 8:49 PM Harika Crook RN * Nutrition Screen Question Answer Date of Assessment Author Difficulty Chewing or Swallowing No 06/20/2025 8:49 PM Gladys Crook RN Burn, Pressure Injury, or Non-Healing Wound No 06/20/2025 8:49 PM Gladys Crook RN Home Tube Feeding or Total Parenteral Nutrition (TPN) No 06/20/2025 8:49 PM Gladys Crook RN Food allergy, Religion, or Cultural nutrition needs No 06/20/2025 8:49 PM Lola Crook RN * Pain Descriptors Answer Date of Assessment Author Aching 06/25/2025 11:47 AM Bella Thomas RN * Pain Onset Answer Date of Assessment Author Ongoing 06/25/2025 11:47 AM Bella Thomas RN * Pain Frequency Answer Date of Assessment Author Constant/continuous 06/25/2025 11:47 AM Bella Ricketts RN * Patient's Stated Pain Goal Answer Date of Assessment Author 5 06/25/2025 11:47 AM Bella Thomas RN * Trauma/Abuse Assessment Question Answer Date of Assessment Author Physical Abuse Denies 06/20/2025 8:50 PM Gladys Diaz RN Verbal Abuse Denies 06/20/2025 8:50 PM Gladys Crane RN * Values/Beliefs Question Answer Date of Assessment Author Cultural Requests During Hospitalization denies 06/20/2025 8:49 PM Gladys Crook RN Spiritual Requests During Hospitalization denies 06/20/2025 8:49 PM Gladys Crook RN Unable to assess No 06/20/2025 8:49 PM Gladys Vazquez RN * Genitourinary Question Answer Date of Assessment Author Genitourinary (WDL) X 06/25/2025 12:00 PM Bella Franco RN Genitourinary Symptoms Urgency 06/25/2025 12:00 P M Bella Thomas RN * Neurological Question Answer Date of Assessment Author Level of Consciousness Alert 12:00 PM Bella Thomas RN Orientation Level Oriented X4 06/25/2025 12: 00 PM Bella Thomas RN Cognition Appropriate judgement 06/25/2025 12:00 PM Bella Thomas RN Speech Slurred 06/25/2025 12:00 PM Bella Thomas RN L Pupil Reaction Brisk 06/24/2025 8:00 PM Marianna Hawk RN L Pupil Size (mm) 2.5 06/24/2025 8:0 0 PM Marianna Hawk RN R Pupil Reaction Brisk 06/24/2025 8:00 PM Marianna Hawk RN R Pupil Size (mm) 2.5 06/24/2025 8:0 0 PM Marianna Hawk RN Neuro (WDL) X 06/25/2025 12:00 PM Bella Thomas RN Swallow Able to swallow manuelito ds and liquids without difficulty 06/25/2025 12:00 PM Bella Thomas RN CIWA Alcohol Withdrawal Assessment No 06/25/2025 4:00 AM Marianna Hawk RN R Hand Grasp Moderate 06/25/2025 4:00 AM Marianna Hawk RN L Hand Grasp Moderate 06/25/2025 4:00 AM Marianna Hawk RN R Pupil Shape Round 06/24/2025 8:00 PM Marianna Hawk RN L Pupil Shape Round 06/24/2025 8:00 PM Marianna Hawk RN Neuro Symptoms None 06/25/2025 4:00 AM Marianna Hawk RN Pupil Assessment Yes 06/25/2025 4:00 AM Marianna Hawk RN Hand Grasp/Motor Function/Sensation Assessment Grasp 06/25/2025 4:00 AM Marianna Hawk RN Neuro Additional Assessments No 06/25/2025 4:00 AM Marianna Hawk RN * Height and Weight Question Answer Date of Assessment Author Height 63 06/17/2025 4:27 PM Precious Torrez RN * Prior Function Question Answer Date of Assessment Author Level of Mobility Ambulatory- community 06/18/20 10:49 AM EST Key Pitt Mobility Marne Independent gait w ith device 06/18/2025 10:49 AM EST Key Pitt History of Falls No 06/18/2025 10:4 9 AM EST Key Pitt ADL Performance Independent 06/18/2025 10:49 AM EST Key Pitt * RUE ROM Assessment Question Answer Date of Assessment Author RUAna Assessment [facility] 06/18/2025 10:49 AM EST Key Fitch * LUE ROM Assessment Question Answer Date of Assessment Author LUAna Assessment [facility] 06/18/2025 10:49 AM EST Key Fitch * Safe Environment Question Answer Date of Assessment Author 37-Pin Connection [Bed and Wall] Yes 06/25/2025 4:00 AM Rochelle Hawk RN Arm Bands On ID 06/25/2025 8:00 AM Bella Delgado RN Side Rails/Bed Safety 3/4 06/25/2025 8:00 AM Bella Thomas RN NonSkid Footwear On;Education provided 06/25/2025 8:00 AM Bella Thomas RN The Patient's Environment is Safe Yes 06/25/2025 8:00 AM Bella Thomas RN Head of Bed Angle 45 06/25/2025 4:00 AM Marianna Hawk RN Bed Foot Left Rail Up State Yes 06/25/2025 8:00 AM Bella Thomas RN Bed Head Right Rail Up State Yes 06/25/2025 8:00 AM Bella Thomas RN Bed Head Left Rail Up State Yes 06/25/2025 8:00 AM Bella Thomas RN Bed Foot Right Rail Up State No 06/25/2025 8:00 AM Bella Thomas RN Bed Exit System Activate Status Yes 06/25/2025 8:00 AM Bella Thomas RN Bed Brake State Yes 06/25/2025 8:00 AM Bella Ivy Ba, RN Bed Low Height State Yes 06/25/2025 8:00 AM E Bella Murcia RN Chair Exit System Activate Status No 06/22/2025 8:43 PM Dustin Koch * Fall Risk Interventions Question Answer Date of Assessment Author Safety Promotion/Fall Prevention assistive device/personal items within reach 06/25/2025 1:00 PM Bella Thomas RN Enhanced Safety Measures bed alarm set;previous patient education reinforced 06/25/2025 1:00 PM Bella Thomas RN Toilet Every 2 Hours-In Advance of Need Yes 06/25/2025 8:00 AM Bella Thomas RN Hourly Visual Checks In bed;Awake 06/25/2025 1:00 PM Bella Franco RN Room Door Open Deferred to promote rest 06/25/2025 8:00 AM Bella Thomas RN Gait Belt Used For Transfers Not applicable 06/25/2025 8:00 AM Bella Thomas RN Fall Bundle Components Call light within reach;Personal belongings within reach;Overbed table within reach;Bed in lowest position;Bed wheels locked;Non-skid footwear on if up in chair or ambulating 06/25/2025 1:00 PM Bella Thomas RN * Mobility Question Answer Date of Assessment Author Range of Motion active ROM (range of motion) encouraged 06/25/2025 2:00 PM Maria Dolores Ford Activity Management activity adjusted pe r tolerance;up in chair 06/25/2025 4:00 PM Maria Dolores Ford Activity Assistance Provided assistance, 1 person 06/25/2025 4:00 PM Maria Dolores Ford Body Position weight shifting;Strong chair 06/25/2025 4:00 PM Maria Dolores Ford VTE Prevention/Management education provided;medication 06/25/2025 12:00 PM Bella Thomas RN Head of Bed (HOB) Positioning HOB elevated 06/25/2025 4:00 PM EST Maria Dolores Ventura Repositioned Turns self 06/25/2025 4:00 PM EST Maria Dolores Ventura Head of Bed Elevated Self regulated 06/21/2025 8:00 PM Gladys Crook RN Heels/Feet Foot of bed elevated 06/25/2025 2:00 PM Maria Dolores Ford Reason for Removing Anti-Embolism Device Ambulating 06/25/2025 8:00 AM Bella Thomas RN Positioning Frequency Able to turn self 06/25/20 4:00 PM EST Maria Dolores Ventura * Hygiene Question Answer Date of Assessment Author Perineal Care absorbent pad 06/21/2025 12:00 AM EST Ga rccarlin, Daybely Bathing/Skin Care bath, partial 06/21/2025 7:00 AM EST Chris Barcenas CNA Oral Care oral rinse provided 06/24/2025 3:00 AM Giovany Currie RN Oral Care (Yes/No) Yes 06/24/2025 3:00 AM Giovany Palomo RN CHG (Chlorhexidine Gluconate) Hygiene Wipes 06/20/2025 11:00 AM EST Amada Ayala * Precautions Question Answer Date of Assessment Author Isolation Precautions precautions maintained 8:00 AM Bella Thomas RN Precautions Environmental surveillance 06/25/2025 8:00 AM Bella Thomas RN * Comfort and Environment Interventions Question Answer Date of Assessment Author Comfort Repositioned 06/25/2025 8:00 AM Bella Delgado RN * Safety Equipment at Bedside Question Answer Date of Assessment Author Standard Bedside Safety Ambu bags in hallway;Oxygen available and working;Suction available, setup and working 06/25/2025 8:00 AM Bella Thomas RN Additional Bedside Safety Bed in locked and low position 06/25/2025 8:00 AM Bella Thomas RN * Consults Question Answer Date of Assessment Author Integrative Medicine Consult Needed No 06/20/2025 8:50 PM Gladys Crook RN Pastoral Care Consult Needed No 06/20/2025 8 :50 PM Gladys Crook RN Social Services Consult Needed No 06/20/2025 8:50 PM Gladys Crook RN * Therapy Consults Question Answer Date of Assessment Author PT Evaluation Needed 1 06/20/2025 8:50 PM Gladys Casillas RN OT Evaluation Needed 2 06/20/2025 8:50 PM E Gladys Ramirez RN SPAR FINISHER Evaluation Needed 2 06/20/2025 8:50 PM Gladys Crook RN * Assistive Devices Question Answer Date of Assessment Author Assistive Devices Walker 06/20/2025 8:48 PM Gladys Crook RN * Provider Notification Question Answer Date of Assessment Author Critical Values WBC 88.77 06/22/2025 1:46 AM Gladys Sifuentes RN Notification Time 360 06/24/2025 12:00 AM Robb Pierce RN * Alarm Limits Question Answer Date of Assessment Author HR Alarm Limit Low 50 06/25/2025 4:00 AM Marianna Hawk RN HR Alarm Limit High 120 06/25/2025 4:00 AM Marianna Maki RN RR Alarm Limit Low 8 06/25/2025 4:00 AM Marianna Hawk RN RR Alarm Limit High 30 06/25/2025 4:00 AM Marianna Maki RN SpO2 Alarm Limit Low 90 06/25/2025 4:00 AM Marinana Jones RN SpO2 Alarm Limit High 100 06/25/2025 4:00 AM Marianna Hawk RN BP Systolic Alarm Limit Low 90 06/25/2025 4: 00 AM Marianna Hawk, DEANNA BP Systolic Alarm Limit High 140 06/25/2025 4 :00 AM Marianna Hawk RN * End of Shift Review Question Answer Date of Assessment Author Shift Review Complete Yes 06/25/2025 8:00 AM Bella Thomas RN Shift Report Received From Carroll Saeed RN 06/25/2025 8:0 0 AM Bella Thomas RN Shift Report Given To Perez Boland RN 06/25/2025 8:00 AM Bella Thomas RN * Hourly Rounding Question Answer Date of Assessment Author Hourly Rounding Complete Per Guideline Yes 06/25/2025 4:00 PM Moises Ford * Patient Violence Risk Assessment Question Answer Date of Assessment Author History of Violence: In the past 12 hours has the PATIENT exhibited any of the following? None 06/25/2025 8:00 AM Bella Thomas RN Potential for Violence: In the past 12 hours has the PATIENT exhibited any of the following? None 06/25/2025 8:00 AM Bella Thomas RN Risk No identified risk 06/25/2025 8:00 AM Bella Thomas RN History of Violence: In the past 12 hours has a PARTNER IN CARE of the patient exhibited any of the following? None 06/25/2025 8:00 AM Bella Thomas RN * Mobility Question Answer Date of Assessment Author Ambulation Moderately independe nt (Device);Stand by 06/25/2025 8:00 AM Bella Thomas RN * Restart Vitals Timer Answer Date of Assessment Author Yes 06/25/2025 11:40 AM Maria Dolores Ford * STOP-Bang Questionnaire Question Answer Date of Assessment Author Do you snore loudly? 0 06/20/2025 8:49 PM Gladys Casillas RN Do you often feel tired or fatigued after your sleep? 1 06/20/2025 8:49 PM Gladys Crook RN Has anyone ever observed you stop breathing in your sleep? 1 06/20/2025 8:49 PM Gladys Gross RN Do you have or are you being treated for high blood pressure? 1 06/20/2025 8:49 PM Gladys Crook RN Is BMI greater than 35 kg/m2? 0=No 06/20/2025 8:49 PM Gladys Crook RN Age older than 50 years old? 1=Yes 06/20/2025 8 :49 PM Gladys Crook RN Is your neck circumference greater than 17 inches (Male) or 16 inches (Female)? 1 06/20/2025 8:49 PM Neetu Crook RN Gender - Male 1=Yes 06/20/2025 8:49 PM Gladys Bledsoe RN STOP-Bang Total Score 6 06/20/2025 8:49 PM Gladys Crook RN Recent BMI (Calculated) 33.2 06/20/2025 8:49 P M Gladys Crook RN * Grooming Question Answer Date of Assessment Author Grooming Interventions 06/22/2025 2:55 PM Xochitl Mixa Grooming Where Assessed Chair level 06/22/2025 2:55 P M Xochitl Mixa Grooming Level of Assistance Setup 06/22/2025 2 :55 PM Sultana Mix * Dynamic Standing Balance Question Answer Date of Assessment Author Dynamic Standing Level of Assistance Minimum assistance 06/18/2025 10:49 AM Key Conrad * General Question Answer Date of Assessment Author Next OT Reassessment 80031 06/18/2025 10:49 AM Key Conrad Patient/Family Goals Statement Pt consent to tx 06/18/2025 10:49 AM Key Conrad * Home Living Question Answer Date of Assessment Author Home Type Apartment 06/18/2025 10:49 AM Key Doyle Home Living Comments Pt reports he can d /c to his daughter's house out of town for [place] where he will have 24hr assist. Unable to verify. 06/18/2025 10:49 AM Key Conrad Home Layout One level 06/18/2025 10:49 AM Key Doyle Home Adaptive Equipment Cane;shower chair;Rollator 06/18/2025 10:49 AM Key Conrad Lives With Alone 06/18/2025 10:49 AM Key Doyle * Date of PT Session Question Answer Date of Assessment Author PT Initials SJ 06/22/2025 2:54 PM Lyssa Odonnell Date of PT Session [id number] 06/22/2025 2:54 PM EST Narinder Lyssa * Calculated C-SSRS Risk Score (Lifetime/Recent) Answer Date of Assessment Author No Risk Indicated 06/25/2025 8:00 AM Bella Thomas RN * [place] Coma Scale Question Answer Date of Assessment Author Best Eye Response Spontaneous 06/25/2025 12:00 PM Bella Thomas RN Best Verbal Response Oriented 06/25/2025 12:00 PM Bella Thomas RN Best Motor Response Follows commands 06/25/2025 12:00 PM Bella Thomas RN Prachi Coma Scale Score 15 06/25/2025 12:00 PM Bella Thomas RN * Learning Assessment Question Answer Date of Assessment Author Education Level High school 06/17/2025 4:39 PM Precious Cortés RN Factors that Impact Ability to Learn None 06/17/2025 4:39 PM Precious Rivera RN Cultural Considerations None 06/17/2025 4:39 P M Precious Rivera RN Religion Considerations None 06/17/2025 4:39 PM Precious Rivera RN * MODESTA 1 Fall Risk Factor Assessment Question Answer Date of Assessment Author Presented to ED because of fall 0 06/17/2025 4:38 PM Precious Rivera RN Age > 70 0 06/17/2025 4:38 PM Precious Rivera RN Intoxicated with alcohol or substance confusion 0 06/17/2025 4:38 PM Precious Rivera RN Ambulates or transfers with assistive devices or assist 1 06/17/2025 4:38 PM Precious Rivera RN Unable to ambulate or transfer 0 06/17/2025 4:38 PM Precious Rivera RN Nursing judgement 1 06/17/2025 4:3 8 PM Precious Rivera RN KINDER 1 Fall Risk Score 2 025 4:38 PM Precious Rivera RN High Fall Risk Interventions for Scores 1 and above Bed in lowest position and locked;Fall risk bundle components in place as defined below;Non-skid socks on patient as appropriate;Alarms set and confirmed;Side rails raised;Call light within reach;Following general safety rules;Patient/family told to always call for assistance 06/17/2025 4:38 PM Precious Rivera RN * Patient Belongings Placed in Locker Question Answer Date of Assessment Author Clothing Pants;Shirt;Footwear ;Jacket/coat 06/17/2025 4:39 PM Precious Rivera RN Belongings at Bedside Medical equipment;Clothing 06/17/2025 4:39 PM Precious Rivera RN Medical Equipment Walker 06/17/2025 4:39 PM Precious Rivera RN * Weight in (lb) to have BMI = 25 Answer Date of Assessment Author 140.8 06/17/2025 4:27 PM Precious Rivera RN * Pain Type Answer Date of Assessment Author Chronic pain 06/25/2025 11:47 AM Bella Thomas RN * Pain Assessment Question Answer Date of Assessment Author Patient is asleep Yes, assume pain is decreased 06/25/2025 12:30 PM Bella Thomas RN Clinical Progression Rapidly improving 06/24/2025 2:40 AM Giovany Palomo RN * Nutrition Question Answer Date of Assessment Author Fluid Restrictions 1800 ml 06/24/2025 8:00 PM Marianna Hawk RN Diet Type Regular;2 gram sodiu m diet;Cardiac;1800 mL Fluid Restriction;Low potassium 06/25/2025 4:00 AM Marianna Hawk RN Feeding Able to feed self 06/25/2025 8:00 AM Bella Thomas RN Appetite Fair 06/24/2025 8:00 PM Marianna Butler RN * Respiratory Interventions Question Answer Date of Assessment Author Respiratory Interventions Cough and deep breathing 06/25/2025 8:00 AM Bella Thomas RN * Cough and Deep Breathe Question Answer Date of Assessment Author Cough And Deep Breathing done independently per patient 06/25/2025 8:00 AM Bella Thomas RN * Genitourinary Additional Assessments Question Answer Date of Assessment Author Genitourinary Additional Assessments No 06/25/2025 4:00 AM EST Rochelle Saeed RN * Integumentary Question Answer Date of Assessment Author Skin Color Appropriate for ethnicity 06/25/2025 12:00 PM Bella Thomas RN Skin Condition/Temp Warm;Dry 06/25/2025 1 2:00 PM Bella Thomas RN Skin Integrity Bruising;Rash;Redness 06/25/2025 12:00 PM Bella Thomas RN Skin Turgor Epidermis thin with loss of subcutaneous tissue 06/25/2025 12:00 PM Bella Thomas RN Skin Tone Medium 06/19/2025 12:00 PM EST Iván Silver RN Bruising Characteristics scattered 025 8:00 AM Bella Thomas RN Integumentary (WDL) X 06/25/2025 1 2:00 PM Bella Thomas RN Rash Location scattered 06/25/2025 8:00 AM Bella Thomas RN Rash Characteristics itchy 06/25/2025 8:00 AM Bella Thomas RN Redness Location back 06/25/2025 8:00 AM Bella Thomas RN Redness Characteristics blanchable 06/25/20 25 8:00 AM Bella Thomas RN * Pain Score Answer Date of Assessment Author 10 06/25/2025 11:47 AM Bella Thomas RN * Confusion Assessment Method (CAM) Question Answer Date of Assessment Author Acute Onset and Fluctuating Course (1A) No 06/25/2025 8:00 AM Bella Thomas RN * Confusion Assessment Method-ICU (CAM-ICU/PCAM-ICU) Question Answer Date of Assessment Author Feature 1: Acute Onset or Fluctuating Course Negative 06/23/2025 8:00 PM Robb Pierce RN Overall CAM-ICU/PCAM-ICU Negative 06/23/2025 8:00 PM Robb Pierce RN * Feature 3: Altered Level of Consciousness Answer Date of Assessment Author Negative 06/25/2025 8:00 AM Perez Thomas RN * Sedation Scales Question Answer Date of Assessment Author RASS 0 06/25/2025 8:00 AM Bella Delgado RN * Urine Output/Assessment Question Answer Date of Assessment Author Urine Color Yellow/straw 06/25/2025 12:00 PM Bella Ricketts RN Urine Appearance Concentrated 06/25/2025 12:00 PM Bella Thomas RN * Stool Output/Assessment Question Answer Date of Assessment Author Unmeasured Stool Occurrence (hourly total) 1 06/25/2025 1:00 PM Bella Thomas RN Stool Color Brown 06/25/2025 1:00 PM Bella Delgado RN Stool Amount Small 06/25/2025 1:00 PM Bella Delgado RN Stool Appearance Formed 06/25/2025 1:00 PM Bella Paulino RN [place] Stool Assessment Chicken nuggets 06/25/2025 1: 00 PM Bella Thomas RN * Patient Specific Goals Question Answer Date of Assessment Author Patient/Family-Specific Goals (Include Timeframe) Patient will remain free from injury throughout the shift 06/25/2025 8:00 AM Bella Thomas RN Individualized Care Needs safety 2024 8:00 AM Bella Thomas RN Anxieties, Fears or Concerns denies 06/25/2025 8:00 AM Bella Thomas RN * Delirium Assessment Question Answer Date of Assessment Author Delirium Prevention & Management Yes 06/25/2025 8:00 AM Bella Thomas RN Delirium Prevention & Management: Early Mobility Ambulate to extent of patient's ability;Up to chair for meals;Educate patient and family about the benfits of early mobility in the hospital 06/25/2025 8:00 AM Bella Thomas RN Delirium Prevention & Management: Cognitive Engagement Emotional support provided;Delirium prevention education provided to patient and family 06/25/2025 8:00 AM Bella Thomas RN Delirium Prevention & Management: Optimize Sleep/Wake Cycles Calming techniques provided;Natural light during the day 06/25/2025 8:00 AM Bella Thomas RN Delirium Scale Used Confusion Assessment Method 06/25/2025 8:00 AM Bella Thomas RN * Mini Nutritional Assessment/Screening (Adults 65 and Older) Question Answer Date of Assessment Author A. Has food intake declined over the past 3 months due to loss of appetite, digestive problems, chewing or swallowing difficulties? 2 06/17/2025 4:41 PM Precious Rivera RN B. Weight loss during the 3 months 3 06/17/2025 4:41 PM Precious Rivera RN C. Mobility 1 06/17/2025 4:41 PM Precious Torrez RN D. Has suffered psychologica l stress or acute disease in the past 3 months? 2 06/17/2025 4:41 PM Precious Rivera RN E. Neuropsychological problems 2 06/17/2025 4:41 PM Precious Rivera RN * F1. MNA Body Mass Index (BMI) (Weight in kg)/(Height in m)2 Answer Date of Assessment Author 3 06/17/2025 4:41 PM Precious Rivera RN * Mini Nutritional Screening Score Answer Date of Assessment Author 13 06/17/2025 4:41 PM Precious Rivera RN * Assume Pain is Present Answer Date of Assessment Author No 06/25/2025 11:47 AM Bella Thomas RN * Pain Assessment Answer Date of Assessment Author 0-10 (Adult DVPRS/Peds 0-10) 06/25/2025 11:47 AM Bella Thomas RN * Hourly Rounding Question Answer Date of Assessment Author Activity Assistance One person assist 06/19/2025 1:00 AM Alize Mast RN Toileting Offered and refused 06/19/2025 1:00 AM Alize Singleton RN Call Light Call light present a nd within reach 06/19/2025 1:00 AM Alize Mast RN Rest/ Sleep No problem identified;Resting;Robert eared asleep 06/19/2025 1:00 AM Alize Mast RN Rest/ Sleep Enhancement Care clustered t o minimize awakenings 06/18/2025 10:30 AM Elvira Queen RN Completed Hourly Rounding Yes 06/19/2025 1:00 AM Alize Mast, DEANNA Plan of Care Reviewed With Patient 06/19/2025 12:00 AM Alize Mast, DEANNA * Standardized Assessments Question Answer Date of Assessment Author Standardized Assessments [facility] 6-Clicks Mobility Assessment 06/18/2025 10:49 AM Lissette Betts * [facility] 6-Click Daily Activities Question Answer Date of Assessment Author Help from Other: Don/Doff Re gular Lower Body Clothings 2 06/18/2025 10:49 AM Reyes Conrad Help From Other: Bathing 2 06/18/2025 10:49 AM Key Conrad Help From Other: Toileting 2 06/18/2025 10: 49 AM Key Conrad Help From Other: Don/Doff Up per Body Clothings 3 06/18/2025 10:49 AM Key Conrad Help From Other: Grooming 3 06/18/2025 10:4 9 AM Key Conrad Help From Other: Eating Meals 4 06/18/2025 10:49 AM EST Key Pitt [facility] 6 Click - Daily Activi ties Score 16 06/18/2025 10:49 AM Key Conrad * Standardized Tests Question Answer Date of Assessment Author Standardized Tests [facility] 6-Clicks 06/18/2025 10:49 AM Key Conrad * Elopement Risk Screen Question Answer Date of Assessment Author Does the patient exhibit any of the following behaviors? No 06/25/2025 8:00 AM Celine Thomas RN Does the patient have a cour t ordered legal guardian? No 06/25/2025 8:00 AM Aury Thomas RN * Manual Muscle Testing - LLE Question Answer Date of Assessment Author Manual Muscle Testing [facility] 06/18/2025 10:49 AM Key Conrad * Manual Muscle Testing - RUE Question Answer Date of Assessment Author Manual Muscle Testing - RUE [facility] 06/18/2025 10 :49 AM Key Conrad * Manual Muscle Testing - LUE Question Answer Date of Assessment Author Manual Muscle Testing - LUE WFL 06/18/2025 10 :49 AM Key Conrad * Dynamic Sitting Balance Question Answer Date of Assessment Author Level of Assistance Standby assisst 06/18/2025 10:49 A M Key Conrad * Cognition Question Answer Date of Assessment Author Orientation Level Oriented X4 06/18/2025 10:49 AM Key Conrad Method of Communication Verbal 06/18/2025 10:49 AM Key Conrad * Static Sitting Balance Question Answer Date of Assessment Author Static Sitting-Level of Assistance Standby assist 06/18/2025 10:49 AM Key Conrad * Static Standing Balance Question Answer Date of Assessment Author Static Standing-Level of Assistance Contact guard 06/18/2025 10:49 AM Key Conrad * OT Assessment Question Answer Date of Assessment Author OT Assessment Results Impaired ADL performance;Impaired IADL performance;Impaired functional mobility;Decreased endurance/ventilation/g as exchange;Impaired postural/trunk control;Impaired judgment during ADL;Impaired balance 06/18/2025 10:49 AM Key Conrad Occupational Profile Expanded review of medical/therapy records and additional review of physical, cognitive, or psychosocial history 06/18/2025 10:49 AM Key Conrad Clinical Decision Making Moderate 025 10:49 AM Key Conrad Overall Eval complexity Moderate 06/18/20 25 10:49 AM Key Conrad Rehab Potential Good, to achieve sta kalyani therapy goals 06/18/2025 10:49 AM Key Conrad Performance Deficits Activities of daily living (ADLs);Instrumental activities of daily living (IADLs);Habits;Routines ;Roles 06/18/2025 10:49 AM Key Conrad * C-SSRS (Frequent Screener) Question Answer Date of Assessment Author Is patient awake, alert, and able/willing to answer questions appropriately? Yes 06/25/2025 8:00 AM Bella Thomas RN 1. Wish to be (Past 1 Month) No 06/25/2025 8:00 AM Bella Thomas RN 2. Non-Specific Active Suici shawn Thoughts (Past 1 Month) No 06/25/2025 8:00 AM Aury Thomas RN 6. Suicidal Behavior (Lifetime) No 8:00 AM Bella Thomas RN * Discharge Planning Continued Question Answer Date of Assessment Author Transportation Home at Discharge Family/Friend will Provide 06/25/2025 9:42 AM Lupe Branch RN * [facility] 6-Clicks Mobility Assessment Question Answer Date of Assessment Author Difficulty patient has turni ng over in bed (including adjusting bedclothes, sheets, and blankets)? 2 06/18/2025 10:49 AM Lissette Mac Difficulty patient has sitti ng down on and standing up from a chair with arms (wheelchair, bedside commode, etc.)? 3 06/18/2025 10:49 AM Lissette Betts Difficulty patient has movin g from lying on back to sitting on the side of the bed? 2 06/18/2025 10:49 AM Lissette Betts How much help does the patie nt need moving to and from a bed to a chair (including a wheelchair)? 3 06/18/2025 10:49 AM Carlos Betts How much help does the patie nt need to walk in hospital room? 3 06/18/2025 10:49 AM Carlos Betts How much help does the patie nt need climbing 3-5 steps with a railing? 2 06/18/2025 10:49 AM Lissette Mac [facility] 6-Clicks Mobility Asse ssment Total 15 06/18/2025 10:49 AM Lissette Betts documented as of this encounter Mental Status * Time Calculation Question Answer Entry Date Author Start Time 94438 06/22/2025 3:08 PM Lyssa Odonnell Stop Time 44935 06/22/2025 3:08 PM Lyssa Odonnell Time Calculation (min) 29 06/22/2025 3:08 PM EST Lyssa Barcenas * OT Therapeutic Procedures Time Entry Question Answer Entry Date Author Self Care/Home Management (A DLs) Time Entry 29 06/22/2025 2:55 PM EST Xochitl Pugha * HESARIKA Question Answer Entry Date Author KALYANI (WDL) X 06/25/2025 12:00 PM EST Bella Scanlon RN R Eye Mildly impaired vision 06/25/2025 12:00 P M EST Bella Boland RN L Eye Mildly impaired vision 06/25/2025 12:00 P M Bella Thomas RN R Ear Mildly impaired hearing 06/25/2025 12:00 PM EST Bella Boland RN L Ear Mildly impaired hearing 06/25/2025 12:00 PM EST Bella Boland RN Voice Other (Comment) 06/21/2025 4:00 PM EST Snehal Azevedo RN Teeth Missing teeth 06/25/2025 12:00 PM EST Bella Chaudhary RN * BMI (Calculated) Answer Entry Date Author 29.2 06/25/2025 4:20 AM EST Liu, Ti na * Percent Excess Weight Loss Answer Entry Date Author 0 06/17/2025 4:27 PM Precious Rivera RN * Total Weight Change Percent Answer Entry Date Author 2222 06/25/2025 4:20 AM EST Liu, Ti na * Weight Change Since Preop Answer Entry Date Author 74.68 06/25/2025 4:20 AM EST Liu, Ti na * Initial Excess Weight Answer Entry Date Author -56.25 06/17/2025 4:27 PM Precious Rivera RN * IBW in lbs (Bariatric) Answer Entry Date Author 124 06/17/2025 4:27 PM Precious Rivera RN * Weight Change Since Last Visit Answer Entry Date Author 0 06/25/2025 4:20 AM EST Liu, Ti na * IBW in kg (Bariatric) Answer Entry Date Author 56.25 06/17/2025 4:27 PM Precious Rivera RN * Percent of IBW Answer Entry Date Author 6,183.08 06/17/2025 4:27 PM Precious Rivera RN * EBW (kg) Answer Entry Date Author 3,476.39 06/17/2025 4:27 PM Precious Rivera RN * EBW (lbs) Answer Entry Date Author 3,470.23 06/17/2025 4:27 PM EST Precious Aguilar RN * Event/Notification Description Question Answer Entry Date Author Event Location [place] 06/19/2025 9:55 PM Eliza Ross RN Department and Room Number 10-114 06/19 9:55 PM Eliza Ross RN Reason for Rapid Response Team notification MEWS 06/19/2025 6:23 PM EST Kenny Hernandez RN Is the patient a DNR? No 06/19/2025 6:23 PM Kenny Perez RN Method of Notification PEWS/MEWS alert 6:23 PM Kenny Perez RN * Progress Answer Entry Date Author improving 06/25/2025 8:00 AM Perez Thomas RN * Stabilization Measures Answer Entry Date Author legs elevated 06/25/2025 8:00 AM Perez Thomas RN * Supportive Measures Answer Entry Date Author active listening utilized;ve rbalization of feelings encouraged 06/25/2025 8:00 AM Bella Thomas RN * Oral Nutrition Promotion Answer Entry Date Author physical activity promoted 06/25/2025 8:00 AM Bella Love RN * Pressure Reduction Techniques Answer Entry Date Author frequent weight shift encouraged 06/25/2025 3:14 AM EST Marianna Saeed RN * Dysrhythmia Management Answer Entry Date Author forceful cough encouraged;Va lsalva maneuver encouraged 06/21/2025 8:00 AM EST Snehal Bettencourt RN * Pain Management Interventions Answer Entry Date Author medication (see MAR) 06/25/2025 11:47 AM EST Bella Chaudhary RN * Fluid/Electrolyte Management Answer Entry Date Author fluids restricted 06/25/2025 8:00 AM Bella Thomas RN * Airway/Ventilation Management Answer Entry Date Author calming measures promoted;po sition adjusted;oxygen therapy provided 06/25/2025 8:00 AM Bella Thomas R N * Trust Relationship/Rapport Answer Entry Date Author care explained;choices provided;thoughts/feelings acknowledged 06/25/2025 8:00 AM Vignesh Thomas RN * Pressure Reduction Devices Answer Entry Date Author positioning supports utilized 06/25/2025 8:00 AM Bella Thomas RN * Environmental Support Answer Entry Date Author calm environment promoted 06/25/2025 8:00 AM Bella Thomas RN * Nutrition Interventions Answer Entry Date Author food preferences provided 06/25/2025 8:00 AM Bella Thomas RN * Infection Prevention Answer Entry Date Author hand hygiene promoted 06/24/2025 8:00 AM Bella Ivy Ba, RN * Family/Support System Care Answer Entry Date Author support provided 06/25/2025 8:00 AM Bella Thomas RN * Medication Review/Management Answer Entry Date Author medications reviewed 06/24/2025 12:57 PM Bella Wynne RN * Skin Protection Answer Entry Date Author incontinence pads utilized;t ransparent dressing maintained 06/25/2025 8:00 AM Bella Thomas RN * Self-Care Promotion Answer Entry Date Author independence encouraged;adap tive equipment use encouraged 06/25/2025 8:00 AM Bella Thomas RN * Safety Interventions Question Answer Entry Date Author Safety Precautions/Falls Reduction assistive device/personal items within reach;fall reduction program maintained 06/17/2025 4:40 PM Precious Rivera RN All Alarms alarm(s) activated a nd audible 06/17/2025 4:40 PM Precious Rivera RN * General Emergency Care CPG Interventions Question Answer Entry Date Author Coping Interventions anticipatory sawyer ce provided;safe, supportive environment facilitated 06/17/2025 4:40 PM Precious Rivera RN General Care Management calm environment promoted;monitored for physiologic status changes 06/17/2025 4:40 PM Precious Rivera RN * Discharge Needs Assessment Question Answer Entry Date Author Discharge Facility/Level of Care Needs 1-Home or Self Care 06/25/2025 9:42 AM Lupe Branch RN Equipment Needed After Discharge none 06/25/2025 9:42 AM EST Blaine, Lupe D, floor helper Coordination/Progress discharge 06/25/2025 9:42 AM Lupe Bracnh RN Transportation Anticipated family or fri end will provide 06/25/2025 9:42 AM Lupe Branch RN Transportation Concerns none 06/25/20 9:42 AM Lupe Branch RN Concerns to be Addressed no discharge ne eds identified 06/25/2025 9:42 AM Lupe Branch RN Readmission Within the Last 30 Days no previous admission in last 30 days 06/25/2025 9:42 AM Lupe Branch RN Patient/Family Anticipated Services at Transition none 06/25/2025 9:42 AM Lupe Branch RN Patient's Choice of Community Agency(s) n/a 06/25/2025 9:42 AM Lupe Branch RN Patient/Family Anticipates Transition to home with family 06/25/2025 9:42 AM Lupe Branch RN Offered/Gave Vendor List no 025 9:42 AM Lupe Branch, DEANNA * Acuity/Destination Question Answer Entry Date Author Patient Acuity 2 06/17/2025 4:24 PM EST Precious Pollard, compressor engineer Complete Triage complete 06/17/2025 4:24 PM Precious Rivera RN * Weight Change 24 hrs Answer Entry Date Author -1.8 06/25/2025 4:20 AM EST Liu, Ti na * Precautions Question Answer Entry Date Author Medical Precautions Fall precautions 06/18/2025 10:49 AM EST Key Pitt * Participants in Care Question Answer Entry Date Author 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 06/22/2025 2:55 PM EST Sultana Hale * Presentation Question Answer Entry Date Author Lines and Tubes Telemetry 06/22/2025 2:55 PM EST Sultana Smith Pre-Session Comments RN consent to tx 06/22/2025 2:55 PM EST Sultana Pugh Post-Session Comments Needs met 06/22/2025 2:55 PM EST Sultana Pugh * Delirium Assessment Question Answer Entry Date Author CAM-ICU/PCAM-ICU No 06/22/2025 2:55 PM EST Sultana Castillo * JHHLM Question Answer Entry Date Author [facility] Daily Mobility Score 4 06/22/2025 2: 55 PM EST Siders, Sultana * Cognition Question Answer Entry Date Author Mood/Behavior Alert 06/22/2025 2:55 PM EST Siders, Sultana Overall Cognitive Status WFL 025 2:55 PM EST Siders, Sultana Arousal/Alertness Appropriate response s to stimuli 06/22/2025 2:55 PM EST Siders, Sultana Single Step Commands Consistently 06/22/2025 2:55 PM EST Siders, Sultana Multi-Step Commands Consistently 06/22/2025 2 :55 PM EST Siders, Sultana * General Question Answer Entry Date Author Next PT Re-Assessment Date 86040 06/18/2025 10: 49 AM Lissette Betts * PT Assessment Question Answer Entry Date Author History Profile 1 - 2 personal facto rs and/or comorbidities 06/18/2025 10:49 AM Lissette Betts Evaluation/Treatment Tolerance Patient limited by fatigue 06/18/2025 10:49 AM Lissette Betts Diagnosis impaired functional mobility 06/18/2025 10:49 AM Lissette Betts Clinical Presentation Evolving clinical presentation with changing characteristics 06/18/2025 10:49 AM Lissette Betts Clinical Decision Making Moderate complexity 10:49 AM Lissette Betts Rehab Potential Good, to achieve sta kalyani therapy goals 06/18/2025 10:49 AM Lissette Betts Activity Tolerance Tolerates 10 - 20 mi n activity with multiple rests 06/18/2025 10:49 AM Lissette Betts * Plan of Care Reviewed With Answer Entry Date Author patient 06/25/2025 8:00 AM EST Perez Boland RN * Pressure Injury Prevention (PIP) Interventions Question Answer Entry Date Author Pressure Reducing Devices Pillow;Special ty bed;Preventative foam dressing 06/25/2025 4:00 AM EST Marianna Saeed RN Preventative Foam Dressing Location Coccyx 06/25/2025 8:00 AM EST Bella Boland RN Preventative Foam Dressing Intervention Applied 06/24/2025 2:53 AM EST Giovany Gibbs RN Bed Type Acute Care Bed 06/25/2025 4:00 AM Marianna Hawk RN * Vital Signs Question Answer Entry Date Author Heart Rate Source Monitor 06/25/2025 4:20 AM Marianna Hawk RN * Oxygen Therapy Question Answer Entry Date Author Oximetry Probe Site Location Left Digit 06/19/2025 4 :43 AM Alize Mast RN * Neurological Question Answer Entry Date Author Neuro (WDL) WDL 06/24/2025 12:00 AM Robb Michel RN * Cardiac Question Answer Entry Date Author Cardiac Regularity Regular 06/24/2025 12:00 AM ES Robb Colin RN Cardiac (WDL) X 06/24/2025 12:00 AM Robb Ellison RN * Gastrointestinal Question Answer Entry Date Author Abdominal Tenderness Tenderness 06/25/2025 12:00 PM Bella Thomas RN Bowel Sounds (All Quadrants) Active 12:00 PM Bella Thomas RN Gastrointestinal (WDL) X 12:00 PM Bella Thomas RN Abdomen Inspection Rounded;Distended 06/25/2025 12:00 PM Bella Thomas RN * Peripheral Vascular Question Answer Entry Date Author Peripheral Vascular (WDL) X 06/25/2025 12:00 PM Bella Thomas RN Generalized Edema Non-pitting 06/25/2025 12: 00 PM Bella Thomas RN Facial Edema Non-pitting 06/23/2025 4:00 PM Gladys Alexander RN Perineal Edema +4 06/23/2025 4:00 PM Gladys Alexander RN Sacral Edema Non-pitting 06/23/2025 4:00 PM Gladys Alexander RN RUE Edema +1 06/24/2025 12:00 AM Robb Pierce RN RLE Edema +2 06/25/2025 12:00 PM Bella Thomas RN LUE Edema +2 06/24/2025 12:00 AM Robb Pierce RN LLE Edema +2 06/25/2025 12:00 PM Bella Thomas RN Capillary Refill 3-4 seconds 06/25/2025 12:0 0 PM Bella Thomas, DEANNA Pulses L radial;R radial;R pedal;L pedal 06/25/2025 4:00 AM Marianna Hawk RN Cyanosis None 06/25/2025 4:00 AM Marianna Hawk RN Edema Generalized;Right lower extremity;Left lower extremity 06/25/2025 12:00 PM Bella Thomas RN * KINGS Neurovascular Assessment Question Answer Entry Date Author RUAna Capillary Refill 3-4 seconds 06/25/2025 4:00 AM E Marianna Elizabeth RN R Radial Pulse +2 06/25/2025 12:00 PM EST Bella Garza RN * LUE Neurovascular Assessment Question Answer Entry Date Author LUE Capillary Refill 3-4 seconds 06/25/2025 4:00 AM E Marianna Elizabeth RN L Radial Pulse +2 06/25/2025 12:00 PM EST Bella Garza RN * RLE Neurovascular Assessment Question Answer Entry Date Author RLE Capillary Refill 3-4 seconds 06/25/2025 4:00 AM E Marianna Elizabeth RN R Posterior Tibial Pulse +2 06/24/2025 12:00 AM EST Robb Covarrubias RN R Pedal Pulse +1 06/25/2025 12:00 PM EST Bella Chaudhary RN * LLE Neurovascular Assessment Question Answer Entry Date Author LLE Capillary Refill 3-4 seconds 06/25/2025 4:00 AM E Marianna Elizabeth RN L Posterior Tibial Pulse +2 06/24/2025 12:00 AM EST Robb Covarrubias RN L Pedal Pulse +1 06/25/2025 12:00 PM Bella Wynne RN * Musculoskeletal Question Answer Entry Date Author RUE Full movement 06/25/2025 12:00 PM Bella Thomas RN RLE Weakness;Swelling 06/25/2025 12: 00 PM Bella Thomas RN LUE Full movement 06/25/2025 12:00 PM Bella Thomas RN LLE Weakness;Swelling 06/25/2025 12: 00 PM Bella Thomas RN Musculoskeletal (WDL) X 06/25/2025 12:00 PM Bella Thomas RN Musculoskeletal Additional Assessments No 06/25/2025 4:00 AM EST Marianna Saeed RN * Genitalia Question Answer Entry Date Author Male Genitalia Intact 06/25/2025 12:00 PM EST Bella Garza RN * Psychosocial Question Answer Entry Date Author Psychological state Calm;Cooperative 06/25/2025 8:00 AM Bella Thomas RN Needs Expressed Denies 06/25/2025 4:00 AM Marianna Hawk RN Psychosocial (WDL) WDL 06/25/2025 12 :00 PM Bella Thomas RN Psychosocial Additional Assessments No 06/25/2025 4:00 AM Marianna Hawk RN Ability to Express Feelings Able to express 06/01 8:00 PM Marianna Hawk RN Ability to Express Needs Able to express 025 8:00 PM Marianna Hawk RN Ability to Express Thoughts Able to express 06/01 8:00 PM Marianna Hawk RN Ability to Understand Others Understands 06/24/2025 8:00 PM Marianna Hawk RN * Unmeasured Output Question Answer Entry Date Author Most Recent BM Date 24622 06/25/2025 9:00 AM Maria Dolores Arredondo Unmeasured Urine Occurrence 1 06/25/2025 9: 00 AM Maria Dolores Ford * Intake Question Answer Entry Date Author [address] 06/25/2025 8:00 AM Bella Delgado RN Diet Supplements Other (Comment) 06/20/2025 4:32 PM Snehal Gudino RN * Output (mL) Question Answer Entry Date Author Urine Odor No odor 06/25/2025 9:00 AM Jerardo Fordolia Urinary Incontinence No 06/25/2025 9:00 AM EST Maria Dolores Ventura [facility] Care [place] Wipes Used Perineum cleansed with soap/water prior 06/25/2025 11:40 AM EST Maria Dolores Ventura Bowel Incontinence No 06/25/2025 11 :40 AM EST Maria Dolores Ventura Urine Amount Small 06/18/2025 12:39 PM EST Ayaan Chan RN * [place] Fall Risk Question Answer Entry Date Author History of Falling, Immediat e or Within 3 Months 0 06/25/2025 8:00 AM Bella Thomas RN Secondary Diagnosis 0 06/25/2025 8:00 AM Bella Love RN Ambulatory Aid 15 06/25/2025 8:00 AM Bella Wynne RN Intravenous Therapy/Heparin Lock 20 06/25/20 8:00 AM Bella Thomas RN Gait/Transferring 10 06/25/2025 8:00 AM Bella Thomas RN Mental Status 0 06/25/2025 8:00 AM Bella Ricketts RN [place] Fall Risk Score 45 06/25/2025 8:00 AM Bella Thomas RN * Huber Scale Question Answer Entry Date Author Sensory Perceptions 3 06/25/2025 12:[address] Bella Boland RN Moisture 3 06/25/2025 12:00 PM Bella Ricketts RN Activity 3 06/25/2025 12:00 PM Bella Ricketts RN Mobility 3 06/25/2025 12:00 PM Bella Ricketts RN Nutrition 3 06/25/2025 12:00 PM Bella Ricketts RN Friction and Shear 3 06/25/2025 12:00 PM Bella Love RN Huber Scale Score 18 06/25/2025 12:00 PM Bella Love RN * BSA (Calculated - sq m) Answer Entry Date Author 1.82 06/25/2025 4:20 AM EST Liu, Ti na * BMI (Calculated) Answer Entry Date Author 29.18 06/25/2025 4:20 AM EST Liu, Ti na * Pain Location Answer Entry Date Author Back 06/25/2025 11:47 AM Bella Thomas RN * Pain Orientation Answer Entry Date Author Lower 06/25/2025 11:47 AM Bella Thomas RN * Cardiac Question Answer Entry Date Author Telemetry Strip Reviewed Yes, I have reviewed and acknowledged the strip measurements as interpreted by the CPT's 06/25/2025 8:00 AM Bella Thomas RN Cardiac Rhythm NSR 06/25/2025 12:00 PM Bella Thomas RN Ectopy Premature ventricula r contractions 06/25/2025 12:00 PM Bella Thomas RN Ectopy Frequency Occasional 06/25/2025 12:0 0 PM Bella Thomas RN Production Officer On Yes 06/25/2025 12:00 PM Bella Thomas RN Telemetry Audible Yes 06/25/2025 12: 00 PM Bella Thomas RN Telemetry Alarms Set Yes 06/25/2025 12:00 PM Bella Thomas RN Cardiac (WDL) X 06/25/2025 12:00 PM Bella Thomas RN Pacemaker No 06/25/2025 12:00 PM Bella Thomas RN Cardiac Regularity Regular 06/25/2025 12 :00 PM Bella Thomas RN Heart Sounds S1, S2 06/25/2025 12:00 PM Bella Thomas RN Telemetry/Hospital Recruiter Yes 06/25/2025 12:00 PM Bella Thomas RN Jugular Venous Distention (JVD) Yes 06/25/2025 12:00 PM Bella Thomas RN Cardiac Symptoms None 06/25/2025 12:0 0 PM Bella Thomas RN * Respiratory Question Answer Entry Date Author Bilateral Breath Sounds Clear;Diminished 025 12:00 PM Bella Thomas RN R Breath Sounds Clear 06/25/2025 4:00 AM Marianna Hawk RN L Breath Sounds Clear 06/25/2025 4:00 AM Marianna Hawk RN Respiratory Pattern Regular 06/25/2025 1 2:00 PM EST Bella Boland RN Chest Assessment Symmetrical 06/25/2025 4:00 AM Marianna Hawk RN Cough Non-productive 06/25/2025 4:00 AM Marianna Hawk RN Respiratory (WDL) X 06/25/2025 12: 00 PM Bella Thomas RN Respiratory Additional Assessments No 06/25/2025 4:00 AM Marianna Hawk RN Respiratory Effort Unlabored 06/25/2025 8: 00 AM Bella Thomas RN Respiratory Depth/Rhythm Regular 025 8:00 AM Bella Thomas RN Dyspnea Occurrence With exertion 06/25/2025 8: 00 AM Bella Thomas RN * Vitals Question Answer Entry Date Author BP 90/57 06/25/2025 3:48 PM EST Maria Teresa caballero, [place] Temp 97.8 06/25/2025 3:48 PM EST Maria Teresa caballero, [place] Temp src Oral 06/25/2025 3:48 PM EST Maria Teresa caballero [place] Pulse 94 06/25/2025 11:40 AM EST Audrey, [place] Resp 16 06/25/2025 11:40 AM EST Audrey, [place] SpO2 91 06/25/2025 11:40 AM EST Audrey, [place] Weight 2634.94 06/25/2025 4:20 AM EST Liu , Consuelo O2 Flow Rate (L/min) 2 06/24/2025 3:15 PM E Apurva Guadarrama M BP Location Right arm 06/25/2025 3:48 PM EST Jerardo Balesolia BP Method Automatic 06/25/2025 3:48 PM EST Maria Teresa caballero [place] MAP (mmHg) 64 06/25/2025 3:48 PM EST Jerardo Balesolia Weight Method Standing scale 06/25/2025 4:20 AM EST Co mbs, [place]uel[place] Pulse Oximetry Type Continuous 06/25/2025 1 1:40 AM EST Maria Dolores Ventura Patient Activity During SpO2 Measurement At rest 06/25/2025 11:40 AM EST Maria Dolores Ventura Oxygen Therapy None 06/25/2025 3:48 PM EST Maria Dolores Mobley O2 Delivery Method Nasal cannula 06/24/2025 3:15 PM Apurva Vidal Patient Position Sitting 06/25/2025 3:48 PM EST Maria Dolores Shepard * Point of Care Tests Question Answer Entry Date Author Provider Role Other (Comment) 06/24/2025 12:00 AM Robb Pierce RN Blood Glucose Meter 109 06/19/2025 7 :27 PM EST Asim Jaime Provider Name Bouchra Amezcua MD 06/24/2025 12 :00 AM Robb Pierce RN Method of Communication Secure message 06/24/20 12:00 AM Robb Pierce RN Reason for Communication Evaluate 12:00 AM Robb Pierce RN Response Other (Comment) 06/24/2025 12:00 AM Robb Pierce RN Glucose Sample Retrieved From Finger stick 06/19/2025 7:27 PM Asim Phan * Patient Information Question Answer Entry Date Author Primary Caregiver Self 06/18/2025 11:08 AM Miguel A Bejarano Support System Immediate family;Oth er (Comment) 06/18/2025 11:08 AM Miguel A Bejarano * Activities of Daily Living Question Answer Entry Date Author Equipment Currently Used at Home walker, rolling;shower chair 06/18/2025 11:08 AM Miguel A Bejarano Functional Status Minimum assistance 06/18/2025 11:08 AM Miguel A Bejarano Living Arrangements Alone 06/18/2025 1 1:08 AM Miguel A Bejarano Type of Residence Private residence 06/18/2025 1 1:08 AM Miguel A Bejarano * Income Information Question Answer Entry Date Author Income Source Retired 06/18/2025 11:08 AM Miguel A Bejarano Income/Expense Information Income meets expenses 06/18/2025 11:08 AM Miguel A Bejarano Current Resources Utilized None 06/18 11:08 AM Miguel A Bejarano * Advance Directives (For Healthcare) Question Answer Entry Date Author Advance Directive Not applicable 06/20/2025 8:4 8 PM Gladys Crook RN Pre-existing DNR/DNI Order No 06/20 8:48 PM Gladys Crook RN Information Provided on Healthcare Directives No 06/20/2025 8:48 PM Gladys Crook RN Patient Requests Assistance No 06/01 8:48 PM Gladys Crook RN Have you reviewed your Advance Directive and is it valid for this stay? No 06/20/2025 8:49 PM Gladys Crook RN * Nutrition Screen Question Answer Entry Date Author Difficulty Chewing or Swallowing No 06/20/2025 8:49 PM Gladys Crook RN Burn, Pressure Injury, or Non-Healing Wound No 06/20/2025 8:49 PM Gladys Crook RN Home Tube Feeding or Total Parenteral Nutrition (TPN) No 06/20/2025 8:49 PM Gladys Crook RN Food allergy, Religion, or Cultural nutrition needs No 06/20/2025 8:49 PM Lola Crook RN * Pain Descriptors Answer Entry Date Author Aching 06/25/2025 11:47 AM Bella Thomas RN * Pain Onset Answer Entry Date Author Ongoing 06/25/2025 11:47 AM Bella Thomas RN * Pain Frequency Answer Entry Date Author Constant/continuous 06/25/2025 11:47 AM Bella Ricketts RN * Patient's Stated Pain Goal Answer Entry Date Author 5 06/25/2025 11:47 AM Bella Thomas RN * Trauma/Abuse Assessment Question Answer Entry Date Author Physical Abuse Denies 06/20/2025 8:50 PM Gladys Diaz RN Verbal Abuse Denies 06/20/2025 8:50 PM Gladys Crane RN * Values/Beliefs Question Answer Entry Date Author Cultural Requests During Hospitalization denies 06/20/2025 8:49 PM Gladys Crook RN Spiritual Requests During Hospitalization denies 06/20/2025 8:49 PM Gladys Crook RN Unable to assess No 06/20/2025 8:49 PM Gladys Vazquez RN * Genitourinary Question Answer Entry Date Author Genitourinary (WDL) X 06/25/2025 12:00 PM E Bella Murcia RN Genitourinary Symptoms Urgency 06/25/2025 12:00 P M Bella Thomas RN * Neurological Question Answer Entry Date Author Level of Consciousness Alert 12:00 PM Bella Thomas RN Orientation Level Oriented X4 06/25/2025 12: 00 PM Bella Thomas RN Cognition Appropriate judgement 06/25/2025 12:00 PM Bella Thomas RN Speech Slurred 06/25/2025 12:00 PM Bella Thomas RN L Pupil Reaction Brisk 06/24/2025 8:00 PM Marianna Hawk RN L Pupil Size (mm) 2.5 06/24/2025 8:0 0 PM Marianna Hawk RN R Pupil Reaction Brisk 06/24/2025 8:00 PM Marianna Hawk RN R Pupil Size (mm) 2.5 06/24/2025 8:0 0 PM Marianna Hawk RN Neuro ([facility]) X 06/25/2025 12:00 PM Bella Thomas RN Swallow Able to swallow manuelito ds and liquids without difficulty 06/25/2025 12:00 PM Bella Thomas RN CIWA Alcohol Withdrawal Assessment No 06/25/2025 4:00 AM Marianna Hawk RN R Hand Grasp Moderate 06/25/2025 4:00 AM Marianna Hawk RN L Hand Grasp Moderate 06/25/2025 4:00 AM Marianna Hawk RN R Pupil Shape Round 06/24/2025 8:00 PM Marianna Hawk RN L Pupil Shape Round 06/24/2025 8:00 PM Marianna Hawk RN Neuro Symptoms None 06/25/2025 4:00 AM Marianna Hawk RN Pupil Assessment Yes 06/25/2025 4:00 AM Marianna Hawk RN Hand Grasp/Motor Function/Sensation Assessment Grasp 06/25/2025 4:00 AM Marianna Hawk RN Neuro Additional Assessments No 06/25/2025 4:00 AM Marianna Hawk RN * Height and Weight Question Answer Entry Date Author Height 63 06/17/2025 4:27 PM Precious Torrez RN Height Method Stated 06/17/2025 4:27 PM Precious Billy RN * Safe Environment Question Answer Entry Date Author 37-Pin Connection [Bed and Wall] Yes 06/25/2025 4:00 AM Marianna Hawk RN Arm Bands On ID 06/25/2025 8:00 AM Bella Thomas RN Side Rails/Bed Safety 3/4 06/25/2025 8:00 AM Bella Thomas RN NonSkid Footwear On;Education provided 8:00 AM Bella Thomas RN The Patient's Environment is Safe Yes 06/25/2025 8:00 AM Bella Thomas RN Head of Bed Angle 45 06/25/2025 4:0 0 AM Marianna Hawk RN Bed Foot Left Rail Up State Yes 06/25/2025 8:00 AM Bella Thomas RN Bed Head Right Rail Up State Yes 06/25/2025 8:00 AM Bella Thomas RN Bed Head Left Rail Up State Yes 06/25/2025 8:00 AM Bella Thomas RN Bed Foot Right Rail Up State No 06/25/2025 8:00 AM Bella Thomas RN Bed Exit System Activate Status Yes 06/25/2025 8:00 AM Bella Thomas RN Bed Brake State Yes 06/25/2025 8:00 AM Bella Thomas RN Bed Low Height State Yes 06/25/2025 8:00 AM Bella Thomas RN Chair Exit System Activate Status No 06/22/2025 8:43 PM Dustin Koch * Fall Risk Interventions Question Answer Entry Date Author Safety Promotion/Fall Prevention assistive device/personal items within reach 06/25/2025 1:00 PM Bella Thomas RN Enhanced Safety Measures bed alarm set;previous patient education reinforced 06/25/2025 1:00 PM Bella Thomas RN Toilet Every 2 Hours-In Advance of Need Yes 06/25/2025 8:00 AM Bella Thomas RN Hourly Visual Checks In bed;Awake 06/25/2025 1:00 PM Bella Thomas RN Room Door Open Deferred to promote rest 06/25/2025 8:00 AM Bella Thomas RN Gait Belt Used For Transfers Not applicable 06/25/2025 8:00 AM Bella Thomas RN Fall Bundle Components Call light within reach;Personal belongings within reach;Overbed table within reach;Bed in lowest position;Bed wheels locked;Non-skid footwear on if up in chair or ambulating 06/25/2025 1:00 PM Bella Thomas RN * Mobility Question Answer Entry Date Author Range of Motion active ROM (range of motion) encouraged 06/25/2025 2:00 PM Maria Dolores Ford Activity Management activity adjusted pe r tolerance;up in chair 06/25/2025 4:00 PM Maria Dolores Ford Activity Assistance Provided assistance, 1 person 06/25/2025 4:00 PM Marai Dolores Ford Body Position weight shifting;Strong chair 06/25/2025 4:00 PM Maria Dolores Ford VTE Prevention/Management education provided;medication 06/25/2025 12:00 PM Bella Thomas RN Head of Bed (HOB) Positioning HOB elevated 06/25/2025 4:00 PM Maria Dolores Ford Repositioned Turns self 06/25/2025 4:00 PM Maria Dolores Ford Head of Bed Elevated Self regulated 06/21/2025 8:00 PM EST Gladys Max RN Heels/Feet Foot of bed elevated 06/25/2025 2:00 PM EST Maria Dolores Ventura Reason for Removing Anti-Embolism Device Ambulating 06/25/2025 8:00 AM Bella Thomas RN Positioning Frequency Able to turn self 06/25/20 4:00 PM EST Maria Dolores Ventura * Hygiene Question Answer Entry Date Author Perineal Care absorbent pad 06/21/2025 12:00 AM EST Asim Jaime Bathing/Skin Care bath, partial 06/21/2025 7:0 0 AM EST Chris Barcenas CNA Oral Care oral rinse provided 06/24/2025 3 :00 AM EST Giovany Gibbs RN Oral Care (Yes/No) Yes 06/24/2025 3: 00 AM Giovany Palomo RN CHG (Chlorhexidine Gluconate) Hygiene Wipes 06/20/2025 11:00 AM EST Amada Ayala * Precautions Question Answer Entry Date Author Isolation Precautions precautions maintained 8:00 AM Bella Thomas RN Precautions Environmental surveillance 06/25 8:00 AM Bella Thomas RN * Comfort and Environment Interventions Question Answer Entry Date Author Comfort Repositioned 06/25/2025 8:00 AM Bella Delgado RN * Safety Equipment at Bedside Question Answer Entry Date Author Standard Bedside Safety Ambu bags in hallway;Oxygen available and working;Suction available, setup and working 06/25/2025 8:00 AM Bella Thomas RN Additional Bedside Safety Bed in locked and low position 06/25/2025 8:00 AM Bella Thomas RN * IBW/kg (Calculated) Male Answer Entry Date Author 56.9 06/17/2025 4:27 PM Precious Rivera RN * IBW/kg (Calculated) Female Answer Entry Date Author 52.4 06/17/2025 4:27 PM Precious Rivera RN * Consults Question Answer Entry Date Author Integrative Medicine Consult Needed No 06/20/2025 8:50 PM Gladys Crook RN Pastoral Care Consult Needed No 06/20/2025 8 :50 PM Gladys Crook RN Social Services Consult Needed No 06/20/2025 8:50 PM Gladys Crook RN * Therapy Consults Question Answer Entry Date Author PT Evaluation Needed 1 06/20/2025 8:50 PM Gladys Casillas RN OT Evaluation Needed 2 06/20/2025 8:50 PM E Gladys Ramirez RN SPAR FINISHER Evaluation Needed 2 06/20/2025 8:50 PM Gladys Crook RN * Assistive Devices Question Answer Entry Date Author Assistive Devices Walker 06/20/2025 8:48 PM Gladys Crook RN * Provider Notification Question Answer Entry Date Author Critical Values WBC 88.77 06/22/2025 1:46 AM Gladys Vazquez RN Notification Time 360 06/24/2025 12:00 AM Robb Pierce RN * Alarm Limits Question Answer Entry Date Author HR Alarm Limit Low 50 06/25/2025 4:00 AM Marianna Hawk, DEANNA HR Alarm Limit High 120 06/25/2025 4:00 AM Marianna Maki RN RR Alarm Limit Low 8 06/25/2025 4:00 AM Marianna Hawk, DEANNA RR Alarm Limit High 30 06/25/2025 4:00 AM Marianna Maki RN SpO2 Alarm Limit Low 90 06/25/2025 4:00 AM E Marianna Elizabeth RN SpO2 Alarm Limit High 100 06/25/2025 4:00 AM Marianna Hawk, DEANNA BP Systolic Alarm Limit Low 90 06/25/2025 4: 00 AM Marianna Hawk RN BP Systolic Alarm Limit High 140 06/25/2025 4 :00 AM Marianna Hawk RN * End of Shift Review Question Answer Entry Date Author Shift Review Complete Yes 06/25/2025 8:00 AM Bella Thomas RN Shift Report Received From Carroll Saeed RN 06/25/2025 8:0 0 AM Bella Thomas RN Shift Report Given To Perez Boland RN 06/25/2025 8:00 AM Bella Thomas RN * Hourly Rounding Question Answer Entry Date Author Hourly Rounding Complete Per Guideline Yes 06/25/2025 4:00 PM EST Moises Ventura * Onset and Notification Specifics Question Answer Entry Date Author Time MIRROR SPECIALIST RN Notified [id number] 06/19/2025 9:55 PM E O'Eliza Khan RN * Monitoring Data Question Answer Entry Date Author Monitoring Comments MIRROR SPECIALIST notified of rae ent with vital signs outside established parameters on floor via MEWS alert with a score of 7. Chart reviewed, noted tachycardia into 150s with recent EKG result showing SVT. Contacted primary RN Iván who states that fellow at bedside to see patient, rhythm resolved via carotid massage. Primary RN denies need for MIRROR SPECIALIST at this time, will continue to monitor and notify MIRROR SPECIALIST and MD with acute changes or concerns. 06/19/2025 6:23 PM Kenny Perez RN * Patient Violence Risk Assessment Question Answer Entry Date Author History of Violence: In the past 12 hours has the PATIENT exhibited any of the following? None 06/25/2025 8:00 AM Bella Thomas RN Potential for Violence: In the past 12 hours has the PATIENT exhibited any of the following? None 06/25/2025 8:00 AM Bella Thomas RN Risk No identified risk 06/25/2025 8: 00 AM Bella Thomas RN History of Violence: In the past 12 hours has a PARTNER IN CARE of the patient exhibited any of the following? None 06/25/2025 8:00 AM Bella Thomas RN * Mobility Question Answer Entry Date Author Ambulation Moderately independe nt (Device);Stand by 06/25/2025 8:00 AM Bella Thomas RN * Airway Question Answer Entry Date Author Airway Patency Patent 06/19/2025 12:00 AM EST Alize Carroll, RN Airway (WDL) WDL 06/19/2025 12:00 AM EST Alize Kinsey RN * Breathing Question Answer Entry Date Author Breathing (WDL) WDL 06/19/2025 12:00 AM Alize Farnsworth RN * Circulation Question Answer Entry Date Author Circulation ([facility]) X 06/19/2025 12:00 AM Alize Mast RN * Disability Question Answer Entry Date Author Disability ([facility]) WDL 06/19/2025 12:00 AM Alize Mast, DEANNA * Restart Vitals Timer Answer Entry Date Author Yes 06/25/2025 11:40 AM EST Maria Dolores Ventura * IBW/kg (Calculated) Answer Entry Date Author 56.9 06/17/2025 4:27 PM Precious Rivera RN * STOP-Bang Questionnaire Question Answer Entry Date Author Do you snore loudly? 0 06/20/2025 8:49 PM Gladys Casillas RN Do you often feel tired or fatigued after your sleep? 1 06/20/2025 8:49 PM Gladys Crook RN Has anyone ever observed you stop breathing in your sleep? 1 06/20/2025 8:49 PM KIKO valerio, Gladys Marquez RN Do you have or are you being treated for high blood pressure? 1 06/20/2025 8:49 PM Gladys Crook RN Is BMI greater than 35 kg/m2? 0=No 06/20/2025 8:49 PM Gladys Crook RN Age older than 50 years old? 1=Yes 06/20/2025 8 :49 PM Gladys Crook RN Is your neck circumference greater than 17 inches (Male) or 16 inches (Female)? 1 06/20/2025 8:49 PM Neetu Crook RN Gender - Male 1=Yes 06/20/2025 8:49 PM Gladys Bledsoe RN STOP-Bang Total Score 6 06/20/2025 8:49 PM Gladys Crook RN Recent BMI (Calculated) 33.2 06/20/2025 8:49 P M Gladys Crook RN * Date of PT Session Question Answer Entry Date Author PT Initials SJ 06/22/2025 2:54 PM EST Lyssa Salmeron Date of PT Session [id number] 06/22/2025 2:54 PM EST Lyssa Barcenas * HARK Concern Calculation Answer Entry Date Author 1 06/18/2025 11:08 AM EST Gael, Pa jeff * Food Insecurity Concern Calculation Answer Entry Date Author 1 06/18/2025 11:08 AM EST Gael, Pa jeff * Transportation Needs Concern Calculation Answer Entry Date Author 1 06/18/2025 11:08 AM EST Gael, Pa jeff * Housing Stability Concern Calculation Answer Entry Date Author 0 06/18/2025 11:08 AM EST Gael, Pa jeff * Utilities Concern Calculation Answer Entry Date Author 1 06/18/2025 11:08 AM EST Gael, Pa jeff * Calculated C-SSRS Risk Score (Lifetime/Recent) Answer Entry Date Author No Risk Indicated 06/25/2025 8:00 AM Bella Thomas RN * Saint David Coma Scale Question Answer Entry Date Author Best Eye Response Spontaneous 06/25/2025 12: 00 PM Bella Thomas RN Best Verbal Response Oriented 06/25/2025 12:00 PM Bella Thomas RN Best Motor Response Follows commands 06/25/2025 12:00 PM Bella Thomas RN [place] Coma Scale Score 15 025 12:00 PM Bella Thomas RN * Intake (mL) Question Answer Entry Date Author I.V. 30 06/18/2025 2:25 PM EST Ayaan Laughlin RN * Rapid Response Outcome Question Answer Entry Date Author Survival Yes 06/19/2025 9:55 PM Eliza Ross RN Rapid Response Termination Due to Patient remained on floor 06/19/2025 9:55 PM Eliza Ross RN * Restart Pain Assessment Timer Answer Entry Date Author Yes 06/25/2025 11:47 AM Bella Thomas RN * KINDER 1 Fall Risk Factor Assessment Question Answer Entry Date Author Presented to ED because of fall 0 06/17/2025 4:38 PM EST Precious Aguilar RN Age > 70 0 06/17/2025 4:38 PM EST Precious Aguilar RN Intoxicated with alcohol or substance confusion 0 06/17/2025 4:38 PM Precious Rivera RN Ambulates or transfers with assistive devices or assist 1 06/17/2025 4:38 PM Precious Rivera RN Unable to ambulate or transfer 0 06/17/2025 4:38 PM Precious Rivera RN Nursing judgement 1 06/17/2025 4:3 8 PM Precious Rivera RN KINDER 1 Fall Risk Score 2 025 4:38 PM Precious Rivera RN High Fall Risk Interventions for Scores 1 and above Bed in lowest position and locked;Fall risk bundle components in place as defined below;Non-skid socks on patient as appropriate;Alarms set and confirmed;Side rails raised;Call light within reach;Following general safety rules;Patient/family told to always call for assistance 06/17/2025 4:38 PM Precious Rivera RN * Geriatric Triage Risk Screening Tool (TRST) Question Answer Entry Date Author TRST Assessment Total 3 06/17/2025 4:41 PM Precious Rivear RN Cognitive impairment 0 06/17/2025 4:41 PM Precious Groves RN Five or more medications 1 06/17/2025 4:41 PM Precious Rivera RN Difficulty walking/ transferring, or recent falls 1 06/17/2025 4:41 PM Precious Locke RN ED use in the last 30 days o r hospitalization in previous 90 days 1 06/17/2025 4:41 PM Precious Rivera RN Lives alone and/ or no caregiver 0 06/17/20 25 4:41 PM Precious Rivera RN ED staff concerns 0 06/17/2025 4:41 PM Precious Rivera RN * Bessie Suicide Severity Rating Scale Question Answer Entry Date Author Is patient awake, alert, and able to answer questions appropriately? Yes 06/17/2025 4:38 PM Precious Rivera RN * Patient Belongings Placed in Locker Question Answer Entry Date Author Clothing Pants;Shirt;Footwear ;J acket/coat 06/17/2025 4:39 PM Precious Rivera RN Belongings at Bedside Medical equipment;Clothing 06/17/2025 4:39 PM Precious Rivera RN Medical Equipment Walker 06/17/2025 4:3 9 PM Precious Rivera RN * BODY PAINTER Information Question Answer Entry Date Author Mode of Arrival [employer] 06/17/2025 4:24 PM Precious Cortés RN * Peripheral Vascular Question Answer Entry Date Author Peripheral Vascular (WDL) X 06/17/2025 4:42 PM Precious Rivera RN * Quick Updates Question Answer Entry Date Author Quick Updates - Free Text acute care bed ordered 06/18/2025 7:22 AM Elvira Queen RN * Weight in (lb) to have BMI = 25 Answer Entry Date Author 140.8 06/17/2025 4:27 PM Precious Rivera RN * BMI (Calculated) Answer Entry Date Author 29.2 06/25/2025 4:20 AM EST Liu, Ti na * Percent Excess Weight Loss Answer Entry Date Author 0 06/17/2025 4:27 PM Precious Rivera RN * Weight Change Since Preop Answer Entry Date Author 74.7 06/25/2025 4:20 AM EST Liu, Ti na * Initial Excess Weight Answer Entry Date Author -56.25 06/17/2025 4:27 PM Precious Rivera RN * IBW in kg (Bariatric) Answer Entry Date Author 56.25 06/17/2025 4:27 PM Precious Rivera RN * IBW in lb (Bariatric) Answer Entry Date Author 124 06/17/2025 4:27 PM Precious Rivera RN * Weight Change Since Last Visit Answer Entry Date Author 0 06/25/2025 4:20 AM EST Liu, Ti na * Percent of IBW Answer Entry Date Author 175.3 06/17/2025 4:27 PM Precious Rivera RN * EBW (kg) Answer Entry Date Author 42.33 06/17/2025 4:27 PM Precious Rivera RN * EBW (lb) Answer Entry Date Author 93.37 06/17/2025 4:27 PM EST Precious Aguilar RN * Difference in Weight Since Last Visit Answer Entry Date Author 0 06/25/2025 4:20 AM EST Liu, Ti na * Housing Circumstances-Z Codes Question Answer Entry Date Author Housing Circumstances (selec t all that apply) None Applicable 06/18/2025 11:08 AM EST Miguel A Mayo * Pain Type Answer Entry Date Author Chronic pain 06/25/2025 11:47 AM EST Bella Boland RN * Anthropometrics Question Answer Entry Date Author Weight Change 0 06/25/2025 4:20 AM EST Comb s, Consuelo * Temp (in Celsius) for [place] IV Answer Entry Date Author 36.6 06/25/2025 3:48 PM EST Maria Dolores Ventura * Pain Assessment Question Answer Entry Date Author Patient is asleep Yes, assume pain is decreased 06/25/2025 12:30 PM Bella Thomas RN Clinical Progression Rapidly improving 2:40 AM EST Giovany Gibbs RN * Nutrition Question Answer Entry Date Author Fluid Restrictions 1800 ml 06/24/2025 8: 00 PM Marianna Hawk RN Diet Type Regular;2 gram sodiu m diet;Cardiac;1800 mL Fluid Restriction;Low potassium 06/25/2025 4:00 AM Marianna Hawk RN Feeding Able to feed self 06/25/2025 8:0 0 AM Bella Thomas RN Appetite Fair 06/24/2025 8:00 PM Marianna Hawk RN * IBW/kg (Calculated) Answer Entry Date Author 56.9 06/17/2025 4:27 PM EST Precious Aguilar RN * Adult Low Range Vt 6mL/kg Answer Entry Date Author 341.4 06/17/2025 4:27 PM EST Precious Aguilar RN * Adult Moderate Range Vt 8mL/kg Answer Entry Date Author 455.2 06/17/2025 4:27 PM EST Precious Aguilar RN * Adult High Range Vt 10mL/kg Answer Entry Date Author 569 06/17/2025 4:27 PM EST Precious Aguilar RN * Respiratory Interventions Question Answer Entry Date Author Respiratory Interventions Cough and deep breathing 06/25/2025 8:00 AM Bella Thomas RN * Cough and Deep Breathe Question Answer Entry Date Author Cough And Deep Breathing done independently per patient 06/25/2025 8:00 AM Bella Thomas RN * Genitourinary Additional Assessments Question Answer Entry Date Author Genitourinary Additional Assessments No 06/25/2025 4:00 AM Rochelle Hawk RN * Integumentary Question Answer Entry Date Author Skin Color Appropriate for ethnicity 06/25/2025 12:00 PM Bella Thomas RN Skin Condition/Temp Warm;Dry 06/25/2025 1 2:00 PM Bella Thomas RN Skin Integrity Bruising;Rash;Redness 06/25/2025 12:00 PM Bella Thomas RN Skin Turgor Epidermis thin with loss of subcutaneous tissue 06/25/2025 12:00 PM Bella Thomas RN Skin Tone Medium 06/19/2025 12:00 PM EST Iván Silver RN Bruising Characteristics scattered 025 8:00 AM Bella Thomas RN Integumentary (WDL) X 06/25/2025 1 2:00 PM Bella Thomas RN Rash Location scattered 06/25/2025 8:00 AM Bella Thomas RN Rash Characteristics itchy 06/25/2025 8:00 AM Bella Thomas RN Redness Location back 06/25/2025 8:00 AM Bella Thomas RN Redness Characteristics blanchable 06/25/20 8:00 AM Bella Thomas RN * Pain Score Answer Entry Date Author 10 06/25/2025 11:47 AM Bella Thomas RN * Score Answer Entry Date Author 29.28 06/25/2025 5:20 PM Carroll Pollard * Confusion Assessment Method (CAM) Question Answer Entry Date Author Acute Onset and Fluctuating Course (1A) No 06/25/2025 8:00 AM Bella Thomas RN * Confusion Assessment Method-ICU (CAM-ICU/PCAM-ICU) Question Answer Entry Date Author Feature 1: Acute Onset or Fluctuating Course Negative 06/23/2025 8:00 PM Robb Pierce RN Overall CAM-ICU/PCAM-ICU Negative 06/23/2025 8:00 PM Robb Pierce RN * Feature 3: Altered Level of Consciousness Answer Entry Date Author Negative 06/25/2025 8:00 AM Perez Thomas RN * Sedation Scales Question Answer Entry Date Author Sedation Scale Used Lehman Agitation Sedation Scale 06/25/2025 8:00 AM Bella Thomas RN RASS 0 06/25/2025 8:00 AM Bella Thomas RN Pasero Opioid-Induced Sedation Scale (POSS) 1 06/25/2025 8:00 AM Bella Thomas RN * Urine Output/Assessment Question Answer Entry Date Author Urine 1000 06/23/2025 12:56 AM Dustin Carbajal Urine Color Yellow/straw 06/25/2025 12:00 PM Bella Ricketts RN Urine Appearance Concentrated 06/25/2025 12:00 PM Bella Thomas RN * Stool Output/Assessment Question Answer Entry Date Author Unmeasured Stool Occurrence (hourly total) 1 06/25/2025 1:00 PM Bella Thomas RN Stool Color Brown 06/25/2025 1:00 PM Bella Thomas RN Stool Amount Small 06/25/2025 1:00 PM Bella Thomas RN Stool Appearance Formed 06/25/2025 1:00 PM Bella Thomas RN [place] Stool Assessment Chicken nuggets 025 1:00 PM Bella Thomas RN * Fall Risk Calculated Score Answer Entry Date Author [place] High 06/25/2025 8:00 AM Perez Thomas RN * Patient Specific Goals Question Answer Entry Date Author Patient/Family-Specific Goals (Include Timeframe) Patient will remain free from injury throughout the shift 06/25/2025 8:00 AM Bella Thomas RN Individualized Care Needs safety 2024 8:00 AM Bella Thomas RN Anxieties, Fears or Concerns denies 06/25/2025 8:00 AM Bella Thomas RN * Delirium Assessment Question Answer Entry Date Author Delirium Prevention & Management Yes 06/25/2025 8:00 AM Bella Thomas RN Delirium Prevention & Management: Early Mobility Ambulate to extent of patient's ability;Up to chair for meals;Educate patient and family about the benfits of early mobility in the hospital 06/25/2025 8:00 AM Bella Thomas RN Delirium Prevention & Management: Cognitive Engagement Emotional support provided;Delirium prevention education provided to patient and family 06/25/2025 8:00 AM Bella Thomas RN Delirium Prevention & Management: Optimize Sleep/Wake Cycles Calming techniques provided;Natural light during the day 06/25/2025 8:00 AM Bella Thomas RN Delirium Scale Used Confusion Assessment Method 06/25/2025 8:00 AM Bella Thomas RN * Mini Nutritional Assessment/Screening (Adults 65 and Older) Question Answer Entry Date Author A. Has food intake declined over the past 3 months due to loss of appetite, digestive problems, chewing or swallowing difficulties? 2 06/17/2025 4:41 PM Precious Rivera RN B. Weight loss during the 3 months 3 06/17/2025 4:41 PM Precious Rivera RN C. Mobility 1 06/17/2025 4:41 PM Precious Rivera RN D. Has suffered psychologica l stress or acute disease in the past 3 months? 2 06/17/2025 4:41 PM Precious Rivera RN E. Neuropsychological problems 2 1 08/18/2024 4:41 PM Precious Rivera RN * F1. MNA Body Mass Index (BMI) (Weight in kg)/(Height in m)2 Answer Entry Date Author 3 06/17/2025 4:41 PM Precious Rivera RN * Mini Nutritional Screening Score Answer Entry Date Author 13 06/17/2025 4:41 PM Precious Rivera RN * Assume Pain is Present Answer Entry Date Author No 06/25/2025 11:47 AM Bella Thomas RN * Pain Assessment Answer Entry Date Author 0-10 (Adult DVPRS/Peds 0-10) 06/25/2025 11:47 AM Bella Thomas RN * Follow Up Question Answer Entry Date Author [place] [id number] 06/25/2025 12:49 PM EST [address] * Deterioration Index Score Question Answer Entry Date Author Deterioration Index Score 40.8 06/25/2025 5:16 PM EST Luis, Batchq * Unplanned Readmission Scores Question Answer Entry Date Author Unplanned Readmission Score 29.26 06/25/2025 4: 00 PM EST Chronicles, Batchq * PRN Medication Given Reason Answer Entry Date Author severe pain 06/25/2025 11:47 AM Bella Thomas RN * Discharge Medication Bedside Delivery Question Answer Entry Date Author Meds to Beds Complete? Yes 3:32 PM Kristin Field CPhT Current Status Prescriptions Delive red - M2B Service Complete 06/25/2025 3:32 PM Kristin Field CPhT Is the patient interested in Medication Bedside Delivery at Discharge? Yes, confirmed by pharmacy 06/25/2025 3:32 PM Kristin Field CPhT * Prachi Coma Scale Numeric Answer Entry Date Author 15 06/25/2025 12:00 PM Bella Thomas RN * Elevate heels task - custom formula Answer Entry Date Author 1 06/21/2025 8:00 PM Gladys Crook RN * Neurological Question Answer Entry Date Author Neuro Pertinent Negatives Alert and oriented x 4;Speech clear 06/18/2025 10:47 AM Elvira Queen RN Neuro (WDL) WDL 06/17/2025 7:56 PM Joyce Calixto * Cardiac Question Answer Entry Date Author Bedside Hospital Recruiter On Yes 06/19/2025 12: 00 AM Alize Mast RN Bedside Cardiac Audible Yes 06/19/2025 12:00 AM Alize Mast RN Bedside Cardiac Alarms Set Yes 06/19/2025 12: 00 AM Alize Mast RN * Vitals Timer Question Answer Entry Date Author Update Vitals Alert Interval 240 06/19/2025 4 :43 AM Alize Mast RN Restart Vitals Timer Yes 06/25/2025 11:40 AM Maria Dolores Ford Restart Vitals Timer Yes 06/19/2025 8:18 AM Binta Rich * Hourly Rounding Question Answer Entry Date Author Activity Assistance One person assist 06/19/2025 1:00 AM Alize Mast RN Toileting Offered and refused 06/19/2025 1 :00 AM Alize Mast RN Call Light Call light present a nd within reach 06/19/2025 1:00 AM Alize Mast RN Rest/ Sleep No problem identified;Resting;Appe ared asleep 06/19/2025 1:00 AM Alize Mast RN Rest/ Sleep Enhancement Care clustered t o minimize awakenings 06/18/2025 10:30 AM Elvira Queen RN Completed Hourly Rounding Yes 2024 1:00 AM Alize Mast RN Plan of Care Reviewed With Patient 06/19/2025 12:00 AM Alize Mast RN * Non- Lethal Alarms Question Answer Entry Date Author Non-Lethal/Regular Alarms Leads off 06/25/2025 4:06 PM Paty Lynne Reason(s) Telemetry is Off Bathing/Bathroom 06/23/2025 1:30 PM Christine Ferrell * Communication Question Answer Entry Date Author Floor Staff Notification Method Secure chat 4:06 PM Paty Lynne Monitoring staff Called Floor Staff Nurse 06/25 4:06 PM Paty Lynne * Elopement Risk Screen Question Answer Entry Date Author Does the patient exhibit any of the following behaviors? No 06/25/2025 8:00 AM Celine Thomas RN Does the patient have a cour t ordered legal guardian? No 06/25/2025 8:00 AM Aury Thomas RN * Cognition Question Answer Entry Date Author Orientation Level Oriented X4 06/18/2025 10:49 AM Key Conrad Method of Communication Verbal 06/18/2025 10:49 AM Key Conrad * C-SSRS (Frequent Screener) Question Answer Entry Date Author Is patient awake, alert, and able/willing to answer questions appropriately? Yes 06/25/2025 8:00 AM Bella Thomas RN 1. Wish to be (Past 1 Month) No 06/25/2025 8:00 AM Bella Thomas RN 2. Non-Specific Active Suici shawn Thoughts (Past 1 Month) No 06/25/2025 8:00 AM Aury Thomas RN 6. Suicidal Behavior (Lifetime) No 8:00 AM Bella Thomas RN * Discharge Planning Continued Question Answer Entry Date Author Transportation Home at Discharge Family/Friend will Provide 06/25/2025 9:42 AM Lupe Branch RN * [facility] 6-Clicks Mobility Assessment Question Answer Entry Date Author Difficulty patient has turni ng over in bed (including adjusting bedclothes, sheets, and blankets)? 2 06/18/2025 10:49 AM Lissette Mac Difficulty patient has sitti ng down on and standing up from a chair with arms (wheelchair, bedside commode, etc.)? 3 06/18/2025 10:49 AM Lissette Betts Difficulty patient has movin g from lying on back to sitting on the side of the bed? 2 06/18/2025 10:49 AM Lissette Betts How much help does the patie nt need moving to and from a bed to a chair (including a wheelchair)? 3 06/18/2025 10:49 AM Carlos Betts How much help does the patie nt need to walk in hospital room? 3 06/18/2025 10:49 AM Carlos Betts How much help does the patie nt need climbing 3-5 steps with a railing? 2 06/18/2025 10:49 AM Lissette Mac [facility] 6-Clicks Mobility Asse ssment Total 15 06/18/2025 10:49 AM Lissette Betts documented in this encounter Discharge Instructions * Discharge Instructions* Abshear, Tamiko T, MD - 06/25/2025 11:23 AM EST - Start taking Bumex 2mg once daily, potassium 20mEq once daily, metoprolol succinate 25mg once daily, ciprofloxacin 500mg daily. - Continue taking your home supply of Jardiance and gabapentin. - We will call you with the date of a follow up appointment in early July for further medicationadjustments. documented in this encounter Medications at Time of Discharge bismuth subsalicylate (Pepto Bismol) 262 MG chewable tablet Chew 1 tablet as needed for indigestion. bumetanide (Bumex) 2 MG tablet Take 1 tablet by mouth daily. 30 tablet 5 06/25/2025 ciprofloxacin (Cipro) 500 MG tabletIndications:SB P (spontaneous bacterial peritonitis) Take 1 tablet by mouth daily. 30 tablet 5 06/26/2025 empagliflozin (Jardiance) 10 MG Take 1 tablet by mouth daily. 30 tablet 3 01/22/2025 ferrous sulfate 324 (65 Fe) MG EC tablet TAKE 1 TABLET BY MOUTH EVERY MORNING WITH BREAKFAST. DO NOT CHEW,CRUSH, OR SPLIT 01/13/2025 gabapentin (Neurontin) 300 MG capsule Take 1 capsule by mouth 3 times a day. 06/25/2025 HYDROcodone-acetamin ophen ([place]) 10-325 MG tablet Take 1 tablet by mouth 4 times a day as needed. metoprolol succinate XL (Toprol-XL) 25 MG 24 hr tablet Take 1 tablet by mouth daily. Do not crush or chew. 30 tablet 5 06/26/2025 Momelotinib Dihydrochloride 200 MG tabletIndications:My eloproliferative disorder (CMS/HCC) Take 200 mg by mouth daily. 30 tablet 1 04/02/2025 naloxone (Narcan) 4 mg/0.1 mL nasal spray 1. Give 1 spray in nostril for no/slow breathing or cannot wake after opioid use 2. Call 911 3. Repeat in other nostril if symptoms continue 1 each 06/17/2025 potassium chloride CR (K-Tab) 20 MEQ ER tablet Take 1 tablet by mouth daily. Do not crush, chew, or split. 30 tablet 2 06/25/2025 rosuvastatin (Crestor) 10 MG tablet Take 1 tablet by mouth nightly. 90 tablet 3 02/12/2025 documented as of this encounter Miscellaneous Notes * Bella Patel RN - 06/25/2025 2:25 PM EST Images from the original note were not included. [id number] What Is Heart Failure? The heart is a muscle that pumps oxygen-rich blood to all parts of the body. When you have heart failure, the heart is not able to pump as well as it should. Blood and fluid may back up into the lungs, and some parts of the body don?t get enough oxygen-rich blood to work normally. When you have heart failure With heart failure, not enough oxygen-rich blood leaves the heart with each beat. There are 2 typesof heart failure. Both affect how well the left ventricles can pump blood. You may have one or bothtypes. Systolic heart failure. The heart muscle becomes weak and enlarged. It can?t pump enough oxygen-rich blood forward to the rest of the body when the ventricles contract. The measurement of how much blood your heart pumps out with each beat is called ejection fraction. In systolic heart failure, the ejection fraction is lower than normal. This can cause blood to back up into the lungs and cause shortness of breath and eventually ankle swelling (edema). This is also known as heart failure with reduced ejection fraction (HFrEF), heart failure with mildly reduced ejection fraction (HFmrEF), or heart failure with improved ejection fraction (HFimpEF). Diastolic heart failure. The heart muscle becomes stiff. It doesn?t relax normally between contractions. This keeps the ventricles from filling with blood as they should. Ejection fraction is often in the normal range. This can still lead to the backup of blood into the body and affect the organs such as the liver. This is also called heart failure with preserved ejection fraction, or HFpEF. Recognizing heart failure symptoms When you have heart failure, you need to pay close attention to your body and how you feel, every single day. That way, if a problem occurs, you can get help before it becomes too severe. You'll needto watch for changes in your symptoms. As long as symptoms stay about the same from one day to the next, your heart failure is stable. But if symptoms start to get worse, it's time to take action. Signs and symptoms of worsening heart failure include: ? Rapid weight gain from fluid buildup ? Shortness of breath, especially when lying down flat ? Fast heart rate ? Cough that won't go away ? Swelling, especially in the feet (edema), legs, or abdomen ? Tiredness (fatigue) ? Nausea or loss of appetite How heart failure affects your body When the heart doesn't pump enough blood, hormones are sent to increase the amount of work the heart does. Some hormones make the heart grow larger. Others tell the heart to pump faster. As a result,the heart may pump more blood at first, but it can't keep up with the ongoing demands. So, the heart muscle becomes even weaker. Over time, even less blood is pumped through the heart. This leads to problems throughout the body as organs start to feel the effects of a long-term lack of oxygen. If not treated, over time this can cause problems with your lungs, liver, and kidneys. Long-term (chronic) leg swelling (edema) can also cause skin changes and breakdown. A weak heart itself can eventually cause a severe decline in health and possible if left untreated. What is ejection fraction? Left ventricular ejection fraction (LVEF) is a measurement of how well your heart pumps blood. It measures how much blood in the heart's ventricle is pumped out (ejected) with each heartbeat. This ismeasured to help diagnose heart failure. A healthy heart pumps at least half of the blood from the ventricles with each beat. This means a normal ejection fraction is around 50% to 70%. There are 4 groupings of HF measured through LVEF. ? HFrEF. LVEF is 40% or less. (systolic HF) ? HFmrEF. LVEF is 41% to 49% with higher filling pressure in the left ventricle. (systolic HF) ? HFimpEF. A past LVEF less than 40% and a follow-up amount of LVEF greater than 40%. (systolic HF) ? HFpEF. LVEF is 50% or more with higher filling pressure in the left ventricle. (diastolic HF) Your healthcare provider will calculate ejection fraction from an echocardiogram or other tests. Your healthcare provider can talk with you about treatment options and how to improve your EF. My ejection fraction Date: Ejection fraction: Test used: How daily issues affect your health Many things in your daily life impact your health. This can include transportation, money problems,housing, access to food, and director of child welfare services. If you can?t get to medical appointments, you may not receive the care you need. When money is tight, it may be difficult to pay for medicines. And living farfrom a grocery store can make it hard to buy healthy food. If you have concerns in any of these or other areas, talk with your healthcare team. They may know of local resources to assist you. Or they may have a staff person who can help. Last Reviewed Date: 2023 00:00:00 ?? [id number] [employer] All rights reserved. This information is not intended as a substitute for professional medical care. Always follow your healthcare professional's instructions. * Toni Mendez - Bella Boland RN - 06/25/2025 2:18 PM EST Images from the original note were not included. [id number] Metoprolol WHY is this medicine prescribed? Metoprolol is used alone or in combination with other medications to treat high blood pressure. It also is used to treat chronic (long-term) angina (chest pain). Metoprolol is also used to improve survival after a heart attack. Metoprolol also is used in combination with other medications to treat heart failure. Metoprolol is in a class of medications called beta blockers. It works by relaxing blood vessels and slowing heart rate to improve blood flow and decrease blood pressure. High blood pressure is a common condition and when not treated, can cause damage to the brain, heart, blood vessels, kidneys and other parts of the body. Damage to these organs may cause heart disease, a heart attack, heart failure, stroke, kidney failure, loss of vision, and other problems. In addition to taking medication, making lifestyle changes will also help to control your blood pressure. These changes include eating a diet that is low in fat and salt, maintaining a healthy weight, exercising at least 30 minutes most days, not smoking, and using alcohol in moderation. HOW should this medicine be used? Metoprolol comes as a tablet, an extended-release (long-acting) tablet, and an extended-release capsule to take by mouth. The regular tablet is usually taken once or twice a day with meals or immediately after meals. The extended-release tablet and extended-release capsule are usually taken once a day. To help you remember to take metoprolol, take it around the same time(s) every day. Follow the directions on your prescription label carefully, and ask your doctor or pharmacist to explain any part you do not understand. Take metoprolol exactly as directed. Do not take more or less of it or take it more often than prescribed by your doctor. The extended-release tablet may be split. Swallow the whole or half extended- release tablets whole;do not chew or crush them. Swallow the extended-release capsules whole; do not split, chew, or crush them. If you are unable to swallow the capsules, you may open the capsule and sprinkle the contents over a spoonful of soft food, such as applesauce, pudding, or yogurt and swallow the mixture immediately. Do not swallow the mixture more than 60 minutes after you sprinkle the contents of the capsule. Your doctor may start you on a low dose of metoprolol and gradually increase your dose. Metoprolol helps to control your condition but will not cure it. Continue to take metoprolol even if you feel well. Do not stop taking metoprolol without talking to your doctor. If you suddenly stop taking metoprolol you may experience serious heart problems such as severe chest pain, a heart attack, or an irregular heartbeat. Your doctor will probably want to decrease your dose gradually over 1 to 2 weeks and will monitor you closely. Are there OTHER USES for this medicine? Metoprolol is also used sometimes to treat certain types of irregular heartbeats. Talk to your doctor about the possible risks of using this medication for your condition. This medication may be prescribed for other uses; ask your doctor or pharmacist for more information. What SPECIAL PRECAUTIONS should I follow? Before taking metoprolol, ? tell your doctor and pharmacist if you are allergic to metoprolol, any other medications, or any of the ingredients in metoprolol tablets, extended-release tablets, or extended-release capsules. Ask your pharmacist for a list of the ingredients. ? tell your doctor and pharmacist what prescription and nonprescription medications, vitamins, nutritional supplements, and herbal products you are taking or plan to take. Your doctor may need to change the doses of your medications or monitor you carefully for side effects. ? tell your doctor if you have a slow or irregular heartbeat or heart failure. Your doctor may tellyou not to take metoprolol. ? tell your doctor if you have or have ever had asthma or other lung diseases; problems with blood circulation; pheochromocytoma (a tumor that develops on a gland near the kidneys and may cause high blood pressure and fast heartbeat); heart or liver disease;diabetes; or hyperthyroidism (an overactive thyroid gland). Also tell your doctor if you have ever had a serious allergic reaction to a food or any other substance. ? tell your doctor if you are , plan to become , or are . If you become while taking metoprolol, call your doctor. ? if you are having surgery, including dental surgery, tell the doctor or dentist that you are taking metoprolol. ? you should know that metoprolol may make you drowsy. Do not drive a car or operate machinery until you know how this medication affects you. ? do not drink any alcoholic drinks or take any prescription or nonprescription medications that contain alcohol if you are taking metoprolol extended-release capsules. Ask your doctor or pharmacist if you do not know if a medication that you plan to take contains alcohol. ? you should know that metoprolol may increase the risk of hypoglycemia (low blood sugar) and prevent the warning signs and symptoms that would tell you that your blood sugar is low. Let your doctor know if you are unable to eat or drink normally or are vomiting while you are taking metoprolol. Youshould know the symptoms of low blood sugar and what to do if you have these symptoms. ? you should know that if you have allergic reactions to different substances, your reactions may be worse while you are using metoprolol, and your allergic reactions may not respond to the usual doses of injectable epinephrine. What SPECIAL DIETARY instructions should I follow? IUnless your doctor tells you otherwise, continue your normal diet. What should I do IF I FORGET to take a dose? Skip the missed dose and continue your regular dosing schedule. Do not take a double dose to make up for a missed one. What SIDE EFFECTS can this medicine cause? Some side effects can be serious. The following symptoms are uncommon, but if you experience any ofthem, call your doctor immediately: ? shortness of breath or difficulty breathing ? wheezing ? swelling of the hands, feet, ankles, or lower legs ? weight gain ? fainting ? rapid, pounding, or irregular heartbeat Metoprolol may cause other side effects. Call your doctor if you have any unusual problems while taking this medication. If you experience a serious side effect, you or your doctor may send a report to the Food and Drug Administration's (FDA) MedWatch Adverse Event Reporting program online (https://www.fda.gov/Safety/MedWatch) or by phone ( ). What should I know about STORAGE and DISPOSAL of this medication? Keep this medication in the container it came in, tightly closed, and out of reach of children. Store it at room temperature and away from excess heat and moisture (not in the bathroom). Keep all medication out of sight and reach of children as many containers are not child-resistant. Always lock safety caps. Place the medication in a safe location - one that is up and away and out of their sight and reach. https://www.upandaway.org Dispose of unneeded medications in a way so that pets, children, and other people cannot take them.Do not flush this medication down the toilet. Use a medicine take-back program. Talk to your pharmacist about take-back programs in your community. Visit the FDA's Safe Disposal of Medicines website h ttps://goo.gl/c4Rm4p for more information. What should I do in case of OVERDOSE? In case of overdose, call the poison control helpline at . Information is also available online at https://www.poisonhelp.org/help. If the victim has collapsed, had a seizure, has trouble breathing, or can't be awakened, immediately call emergency services at 911. Symptoms of overdose may include the following: ? nausea ? vomiting ? decreased consciousness or loss of consciousness (coma) ? irregular, fast, or slow heartbeat ? chest pain ? dizziness ? fatigue or weakness ? fainting ? difficulty breathing ? cough or wheezing ? swelling of the hands, feet, ankles, or lower legs What OTHER INFORMATION should I know? Keep all appointments with your doctor. Your blood pressure should be checked regularly to determine your response to metoprolol. Your doctor may ask you to check your pulse (heart rate). Ask your pharmacist or doctor to teach you how to take your pulse. If your pulse is faster or slower than it should be, call your doctor. Do not let anyone else take your medication. Ask your pharmacist any questions you have about refilling your prescription. Keep a written list of all of the prescription and nonprescription ([id number]) medicines, vitamins, minerals, and dietary supplements you are taking. Bring this list with you each time you visit a doctor or if you are admitted to the hospital. You should carry the list with you in case of gilberto rgencies. Brand Name(s): ? Kapspargo Sprinkle?? ? Lopressor?? ? Toprol? Toprol?? XL ? Dutoprol?? (as a combination product containing Metoprolol, Hydrochlorothiazide)?? ? Lopressidone?? (as a combination product containing Chlorthalidone, Metoprolol)?? ? Lopressor?? HCT (as a combination product containing Metoprolol, Hydrochlorothiazide) also available generically ?? This branded product is no longer on the market. Generic alternatives may be available. This report on medications is for your information only, and is not considered individual patient advice. Because of the changing nature of drug information, please consult your physician or pharmacist about specific clinical use. The [place] [employer] represents that the information provided hereunder was formulated with a reasonable standard of care, and in conformity with professional standards in the field. The [place] [employer] makes no representations or warranties, express or implied, including, but not limited to, any implied warranty of merchantability and/or fitness for a particular purpose, with respect to such information and specifically disclaims all such warranties. Users are advised that decisions regarding drug therapy are complex medical decisions requiring the independent, informed decision of an appropriate health neonatal intensive care nurse, and the information is provided for informational purposes only. The entire monograph for a drug should be reviewed for a thorough understanding of the drug's actions, uses and side effects. The [place] [employer] does not endorse or recommend the use of any drug.The information is not a substitute for medical care. AHFS?? Patient Medication Information?. ?? Copyright, 2023. The [place] [employer]??, [address], [address], [place], [place]. All Rights Reserved. Duplication for commercial use must be authorized by [facility]. Selected Revisions: March 15, 2023. AHFS?? Patient Medication Information?. ?? Copyright, 2024 * Toni eMndez - Bella Boland RN - 06/25/2025 2:17 PM EST Images from the original note were not included. [id number] Ciprofloxacin IMPORTANT WARNING: Taking ciprofloxacin increases the risk that you will develop tendinitis (swelling of a fibrous tissue that connects a bone to a muscle) or have a tendon rupture (tearing of a fibrous tissue that connects a bone to a muscle) during your treatment or for up to several months afterward. These problems may affect tendons in your shoulder, your hand, the back of your ankle, or in other parts of your body. Tendinitis or tendon rupture may happen to people of any age, but the risk is highest in people over 60 years of age. Tell your doctor if you have or have ever had a kidney, heart, or lung transplant; kidney disease; a joint or tendon disorder such as rheumatoid arthritis (a condition in whichthe body attacks its own joints, causing pain, swelling, and loss of function); or if you participate in regular physical activity. Tell your doctor and pharmacist if you are taking oral or injectable steroids such as dexamethasone, methylprednisolone (Medrol), or prednisone (Emily). If you experience any of the following symptoms of tendinitis, stop taking ciprofloxacin, rest, and call your doctor immediately: pain, swelling, tenderness, stiffness, or difficulty in moving a muscle. If you experience any of the following symptoms of tendon rupture, stop taking ciprofloxacin and get emergency medical treatment: hearing or feeling a snap or pop in a tendon area, bruising after an injury to a tendon area, or inability to move or to bear weight on an affected area. Taking ciprofloxacin may cause changes in sensation and nerve damage that may not go away even after you stop taking ciprofloxacin. This damage may occur soon after you begin taking ciprofloxacin. Tell your doctor if you have ever had peripheral neuropathy (a type of nerve damage that causes tingling, numbness, and pain in the hands and feet). If you experience any of the following symptoms, stoptaking ciprofloxacin and call your doctor immediately: numbness, tingling, pain, burning, or weakness in the arms or legs; or a change in your ability to feel light touch, vibrations, pain, heat, or cold. Taking ciprofloxacin may affect your brain or nervous system and cause serious side effects. This can occur after the first dose of ciprofloxacin. Tell your doctor if you have or have ever had seizures, epilepsy, cerebral arteriosclerosis (narrowing of blood vessels in or near the brain that can lead to stroke or ministroke), stroke, changed brain structure, or kidney disease. If you experience any of the following symptoms, stop taking ciprofloxacin and call your doctor immediately: seizures; tremors; dizziness; lightheadedness; headaches that won't go away (with or without blurred vision); difficulty falling asleep or staying asleep; nightmares; not trusting others or feeling that others want to hurt you; hallucinations (seeing things or hearing voices that do not exist); thoughts or actions towards hurting or killing yourself; feeling restless, anxious, nervous, depressed, memory changes, or confused, or other changes in your mood or behavior. Taking ciprofloxacin may worsen muscle weakness in people with myasthenia gravis (a disorder of thenervous system that causes muscle weakness) and cause severe difficulty breathing or . Tell your doctor if you have myasthenia gravis. Your doctor may tell you not to take ciprofloxacin. If you have myasthenia gravis and your doctor tells you that you should take ciprofloxacin, call your doctor immediately if you experience muscle weakness or difficulty breathing during your treatment. Talk to your doctor about the risks of taking ciprofloxacin. Your doctor or pharmacist will give you the [employer] buyer's patient information sheet (Medication Guide) when you begin treatment with ciprofloxacin. Read the information carefully and ask your doctoror pharmacist if you have any questions. You can also visit the Food and Drug Administration (FDA) website (https://www.fda.gov/Drugs) or the wool buyer's website to obtain the Medication Guide. WHY is this medicine prescribed? Ciprofloxacin is used to treat or prevent certain infections caused by bacteria such as pneumonia; gonorrhea (a sexually transmitted disease); typhoid fever (a serious infection that is common in developing countries); infectious diarrhea (infections that cause severe diarrhea); and infections of the skin, bone, joint, abdomen (stomach area), and prostate (male reproductive gland), Ciprofloxacin is also used to treat or prevent plague (a serious infection that may be spread on purpose as part of a bioterror attack) and inhalation anthrax (a serious infection that may be spread by anthrax germs in the air on purpose as part of a bioterror attack). Ciprofloxacin may also be used to treat bronc hitis, sinus infections, or urinary tract infections but should not be used for bronchitis and sinus infections, or certain types of urinary tract infections if there are other treatment options. Ciprofloxacin extended-release (long-acting) tablets are used to treat kidney and urinary tract infections; however, some types of urinary tract infections should only be treated with ciprofloxacin extended release tablets if no other treatment options are available. Ciprofloxacin is in a class of antibiotics called fluoroquinolones. It works by killing bacteria that cause infections. Antibiotics such as ciprofloxacin will not work for colds, flu, or other viral infections. Using antibiotics when they are not needed increases your risk of getting an infection later that resists antibiotic treatment. HOW should this medicine be used? Ciprofloxacin comes as a tablet, a suspension (liquid), and an extended-release tablet to take by mouth with or without food. The tablets and suspension are usually taken twice a day, and the extended-release tablets are usually taken once a day. When used to treat gonorrhea, the tablets and suspension may be given as a single dose. Take ciprofloxacin at around the same time(s) every day. The length of your treatment depends on the type of infection you have. Your doctor will tell you how long to take ciprofloxacin. Follow the directions on your prescription label carefully, and ask your doctor or pharmacist to explain any part you do not understand. Take ciprofloxacin exactly as directed. Do not take more or less of it or take it more often than prescribed by your doctor. One type of ciprofloxacin cannot be substituted for another. Be sure that you receive only the typeof ciprofloxacin that was prescribed by your doctor. Ask your pharmacist if you have any questions about the type of ciprofloxacin you were given. Do not take ciprofloxacin with dairy products or calcium-fortified juices alone. However, you may take ciprofloxacin with a meal that includes these foods or drinks. Swallow the tablets whole; do not crush, or chew them. If you doctor tells you to to split the 250-mg or 500-mg tablet, it may be broken in half along the scored line. Swallow the extended-release tablets whole; do not split, crush, or chew them. If you cannot swallow tablets or extended-release tablets whole, tell your doctor. If you are taking the suspension, shake the bottle very well for 15 seconds before each use to mix the medication evenly. Swallow the correct dose without chewing the granules in the suspension. Close the bottle completely after each use. Do not give the suspension to a patient through a feeding tube. You should begin feeling better during the first few days of your treatment with ciprofloxacin. If your symptoms do not improve or if they get worse, call your doctor. If you are being treated for a urinary tract infection, call your doctor if you develop fever or back pain during or after your treatment. These symptoms may be signs that your infection is worsening. Take ciprofloxacin until you finish the prescription, even if you feel better. Do not stop taking ciprofloxacin without talking to your doctor unless you experience certain serious side effects listed in the IMPORTANT WARNING and SIDE EFFECTS sections If you stop taking ciprofloxacin too soon or ifyou skip doses, your infection may not be completely treated and the bacteria may become resistant to antibiotics. Are there OTHER USES for this medicine? In the event of biological warfare, ciprofloxacin may be used to treat and prevent dangerous illnesses that are deliberately spread such as tularemia and anthrax of the skin or mouth. Ciprofloxacin is also sometimes used to treat cat scratch disease (an infection that may develop after a person is bitten or scratched by a cat), Legionnaires' disease (type of lung infection), chancroid (genital sores caused by bacteria), granuloma inguinale (donovanosis; a sexually transmitted disease), and infections of the outer ear that spread to the bones of the face. Ciprofloxacin may also be used to helptreat tuberculosis and Crohn's disease (condition in which the immune system attacks the lining of the digestive tract causing pain, diarrhea, weight loss, and fever). Ciprofloxacin is also sometimesused to prevent traveler's diarrhea in certain patients and to prevent infections in patients who have fever and are at high risk for infection because they have very few white blood cells, people who are having certain types of surgery, and those people in close contact with someone who is sick wit h meningitis. Talk to your doctor about the risks of using this medication for your condition. This medication may be prescribed for other uses; ask your doctor or pharmacist for more information. What SPECIAL PRECAUTIONS should I follow? Before taking ciprofloxacin, ? tell your doctor and pharmacist if you are allergic or have had a severe reaction to ciprofloxacin. any other quinolone or fluoroquinolone antibiotic such as delafloxacin (Baxdela), gemifloxacin (Factive), levofloxacin (Levaquin), moxifloxacin (Avelox), and ofloxacin; any other medications, or ifyou are allergic to any of the ingredients in ciprofloxacin tablets or suspension. Ask your doctor or pharmacist for a list of the ingredients. ? tell your doctor if you are taking tizanidine (Zanaflex). Your doctor will probably tell you not to take ciprofloxacin while you are taking this medication. ? some medications should not be taken with ciprofloxacin. Other medications may cause dosing changes or extra monitoring when taken with ciprofloxacin. Make sure you have discussed any medications you are currently taking or plan to take before starting ciprofloxacin with your doctor and pharmacist. Before starting, stopping, or changing any medications while taking ciprofloxacin, please get the advice of your doctor or pharmacist. ? if you are taking antacids containing calcium, aluminum hydroxide or magnesium hydroxide (Maalox,Mylanta, Tums, others); or certain medications such as didanosine (Videx) solution; calcium, iron, or zinc supplements; phosphate binders such as sevelamer (Renagel, Renvela) or lanthanum carbonate (Fosrenol); or sucralfate (Carafate), take ciprofloxacin at least 2 hours before or 6 hours after youtake these medications. ? the following nonprescription products may interact with ciprofloxacin: nonsteroidal anti-inflammatory drugs (NSAIDS) such as ibuprofen (Advil, Motrin, others) and naproxen (Aleve). Be sure to let your doctor and pharmacist know that you are taking these medications before you start taking ciprofloxacin. Do not start any of these medications while taking ciprofloxacin without discussing with your healthcare provider. ? tell your doctor if you or anyone in your family has or has ever had a prolonged QT interval (a rare heart problem that may cause irregular heartbeat, fainting, or sudden ). Also, tell your doctor if you have or have ever had an irregular or slow heartbeat, heart failure (condition in which the heart is unable to pump enough blood to the other parts of the body), a heart attack, an aortic aneurysm (swelling of the large artery that carries blood from the heart to the body), high blood pressure, peripheral vascular disease (poor circulation in the blood vessels), Marfan syndrome (a genetic condition that can affect the heart, eyes, blood vessels and bones), Des-Danlos syndrome (a genetic condition that can affect skin, joints, or blood vessels), or have a low level of potassium or magnesium in your blood. Also tell your doctor if you have or have ever had diabetes or problems with low blood sugar or liver disease. ? tell your doctor if you are or plan to become . If you become while taking ciprofloxacin, call your doctor. ? tell your doctor if you are . You should not breastfeed while you are taking ciprofloxacin and for at least 2 days after your final dose. ? do not drive a car, operate machinery or participate in activities requiring alertness or coordination until you know how this medication affects you. ? plan to avoid unnecessary or prolonged exposure to sunlight or ultraviolet light (tanning beds and sunlamps) and to wear protective clothing, sunglasses, and sunscreen. Ciprofloxacin may make your skin sensitive to sunlight or ultraviolet light. If your skin becomes reddened, swollen, or blistered, like a bad sunburn, call your doctor. What SPECIAL DIETARY instructions should I follow? Do not drink or eat a lot of caffeine-containing products such as coffee, tea, energy drinks, cola,or chocolate. Ciprofloxacin may increase nervousness, sleeplessness, heart pounding, and anxiety caused by caffeine. Make sure you drink plenty of water or other fluids every day while you are taking ciprofloxacin. What should I do IF I FORGET to take a dose? If you miss a dose of ciprofloxacin tablets or suspension and it is 6 hours or more before the nextdose, take the missed dose as soon as you remember it and then take the next dose at the scheduled time. However, if you miss a dose of ciprofloxacin tablets or suspension and it is less than 6 hoursbefore the next dose, skip the missed dose and continue your regular dosing schedule. If you miss a dose of the extended-release tablet and it is 8 hours or more before the next dose, take the dose as soon as you remember it and then take the next dose at the scheduled time. However, if you miss a dose of ciprofloxacin extended-release tablets and it is less than 8 hours before the next dose, skip the missed dose and continue your regular dosing schedule. Do not take a double dose to make up for a missed one. Do not take more than two doses of the tablets or suspension or more than one dose of the extended-release tablets in one day. What SIDE EFFECTS can this medicine cause? If you experience any of the following symptoms, or those listed in the IMPORTANT WARNING section, stop taking ciprofloxacin and call your doctor immediately or get emergency medical help: ? severe diarrhea (watery or bloody stools) that may occur with or without fever and stomach cramps(may occur up to 2 months or more after your treatment) ? rash ? hives ? itching ? peeling or blistering of the skin ? fever ? swelling of the eyes, face, mouth, lips, tongue, throat, hands, feet, ankles or lower legs ? hoarseness or throat tightness ? difficulty breathing or swallowing ? ongoing or worsening cough ? yellowing of the skin or eyes; pale skin; dark urine; or light colored stool ? extreme thirst or hunger; pale skin; feeling shaky or trembling; fast or fluttering heartbeat; sweating; frequent urination; trembling; blurred vision; or unusual anxiety ? fainting or loss of consciousness ? decreased urination ? sudden pain in the chest, stomach, or back Ciprofloxacin may cause problems with bones, joints, and tissues around joints in children. Ciprofloxacin should not normally be given to children younger than 18 years of age unless they have certain serious infections that cannot be treated with other antibiotics or they have been exposed to plague or anthrax in the air. If your doctor prescribes ciprofloxacin for your child, be sure to tell the doctor if your child has or has ever had joint-related problems. Call your doctor if your child develops joint problems such as pain or swelling while taking ciprofloxacin or after treatment with ciprofloxacin. Talk to your doctor about the risks of taking ciprofloxacin or giving ciprofloxacin to your child. Ciprofloxacin may cause other side effects. Call your doctor if you have any unusual problems whiletaking this medication. If you experience a serious side effect, you or your doctor may send a report to the Food and Drug Administration's (FDA) MedWatch Adverse Event Reporting program online (https://www.fda.gov/Safety/MedWatch) or by phone ( ). What should I know about STORAGE and DISPOSAL of this medication? Keep this medication in the container it came in, tightly closed, and out of reach of children. Store the tablets and extended-release tablets at room temperature and away from excess heat and moisture (not in the bathroom). Store the suspension in the refrigerator or at room temperature, closed tightly, for up to 14 days. Do not freeze ciprofloxacin suspension. Discard any suspension that is left over after 14 days. Keep all medication out of sight and reach of children as many containers are not child-resistant. Always lock safety caps. Place the medication in a safe location - one that is up and away and out of their sight and reach. https://www.upandaway.org Dispose of unneeded medications in a way so that pets, children, and other people cannot take them.Do not flush this medication down the toilet. Use a medicine take-back program. Talk to your pharmacist about take-back programs in your community. Visit the FDA's Safe Disposal of Medicines website h ttps://goo.gl/c4Rm4p for more information. What should I do in case of OVERDOSE? In case of overdose, call the poison control helpline at . Information is also available online at https://www.poisonhelp.org/help. If the victim has collapsed, had a seizure, has trouble breathing, or can't be awakened, immediately call emergency services at 911. What OTHER INFORMATION should I know? Keep all appointments with your doctor and the laboratory. Your doctor may order certain lab tests to check your body's response to ciprofloxacin. If you have diabetes, your doctor may ask you to check your blood sugar more often while taking ciprofloxacin. Do not let anyone else take your medication. Your prescription is probably not refillable. If you still have symptoms of infection after you finish taking ciprofloxacin, call your doctor. Keep a written list of all of the prescription and nonprescription ([id number]) medicines, vitamins, minerals, and dietary supplements you are taking. Bring this list with you each time you visit a doctor or if you are admitted to the hospital. You should carry the list with you in case of gilberto rgencies. Brand Name(s): ? Cipro?? Oral Suspension ? Cipro?? Tablets ? Cipro?? XR Extended-release Tablets?? ? Proquin?? XR Extended-release Tablets?? also available generically ?? This branded product is no longer on the market. Generic alternatives may be available. This report on medications is for your information only, and is not considered individual patient advice. Because of the changing nature of drug information, please consult your physician or pharmacist about specific clinical use. The [place] [employer] represents that the information provided hereunder was formulated with a reasonable standard of care, and in conformity with professional standards in the field. The [place] [employer] makes no representations or warranties, express or implied, including, but not limited to, any implied warranty of merchantability and/or fitness for a particular purpose, with respect to such information and specifically disclaims all such warranties. Users are advised that decisions regarding drug therapy are complex medical decisions requiring the independent, informed decision of an appropriate health neonatal intensive care nurse, and the information is provided for informational purposes only. The entire monograph for a drug should be reviewed for a thorough understanding of the drug's actions, uses and side effects. The [place] [employer] does not endorse or recommend the use of any drug.The information is not a substitute for medical care. AHFS?? Patient Medication Information?. ?? Copyright, 2023. The [place] [employer]??, [address], [address], [place], [place]. All Rights Reserved. Duplication for commercial use must be authorized by [facility]. Selected Revisions: June 14, 2021. AHFS?? Patient Medication Information?. ?? Copyright, 2024 * Consults - Essence Stoll RD - 06/25/2025 12:30 PM ESTAssociated Order(s): IP CONSULT TO NUTRITION SERVICES Adult Nutrition Evaluation Note Noe Caraballo 75 y.o. male CSN: [id number] Room/Bed 115/115A Nutrition evaluation type: assessment: Pt education Reason for evaluation: [facility] course: 75 yo male who presented to [facility] on 06/17/2025 with dyspnea on exertion. The patient states that he has gained approximately 20lbs since his discharge in May. He has been experiencing increased shortness of breath and lower extremity edema during this time. Past medical/ surgical history: Past Medical History[1] Surgical History[2] Social history: Social History[3] Additional comments: 06/25: Pt lying in bed, c/o abdominal pain and constipation. Pt reports not liking food much, and expressed frustration with limitations of diet. Pt denied chewing/swallowing difficulty. Pt reports prior BW of 214# prior to diureses, with significant fluid retention, unable to a rticulate dry wt. Pt reports drinking ONS shakes daily. Nutrition education r/t HF provided. NFPE deferred d/t pt discomfort. Vitals and Basic Assessment: BP: 97/63 Temp: 36.4 ??C (97.6 ??F) Oxygen Therapy: None (Room air) O2 Delivery Method: Nasal cannula [place] Coma Scale Score: 15 Huber Scale Score: 18 Most Recent BM Date: 06/25/25 Edema: Generalized, Right lower extremity, Left lower extremity Allergies: NKFA per pt Medications: Current Scheduled Medications[4] Current Continuous Medications[5] Current PRN Medications[6] Meds were reviewed: Yes Labs: Labs in last 18 hours CBC WBC 84.93 (HH) Hb 15.1 Plt 81 (L) Hct 49.3 ANC ?? INR ??, PTT ??, Anti-Xa ?? BMP Na 136 Cl 85 (L) BUN 81 (H) Glu 88 K 3.4 (L) Co2 34 (H) Cr 3.06 (H) Ca 8.9 iCa ?? Mg 2.1, Phos 2.7 Lactate ?? LFT AST 73 (H) AlkPhos 498 (H) T Prot 6.6 ALK 18 Bili 1.9 (H) Alb ?? D.Bili ?? Anthropometrics: Height: 160 cm (5' 3 ) Weight: 74.7 kg (164 lb 10.9 oz) BMI (Calculated): 29.18 [place] Body Weight (kg): 56.4 Percent [place] Body Weight: 132 Adjusted Body Weight (kg): 61 Estimated Needs: Metabolic Cart Study Results: Current Nutrition Intake: Diet Supplements: Other (Comment) (4oz water) Diet Order: Adult Diet Diet Texture: Regular Adult Sodium Restriction: 2,000 mg Na Fat Restriction:Cardiac Electrolyte Restriction: Renal (Low potassium) Adult Fluid Restriction / 24 hr: 1800 ml fluid Percent Meals Eaten (%): 75% x 4 meals (noted 06/19-06/23) Diet Experience and Nutrition History: Diet Education Provided: Yes RD met with pt for nutrition education per consult: Heart failure dietary education (sodium limits,reading labels, etc). Pt expressed that he has been reducing his sodium intake to prevent swelling.RD discussed cooking methods, using the nutrition label, seasoning alternatives, and provided tips for eating out. Handouts provided: NCM HF Nutrition Therapy, CardioSmart label reading, CardioSmart [place] the Salt , and Onel's Suggested Seasoning. Pt expressed that's a lot of work for me , RDencouraged pt to continue being mindful and reducing his Na intake. Pertinent home medications: Pepto bismol, Jardiance, FeSO4, gabapentin, [place], Momelotinib Dihydrochloride, rosuvastatin Religion needs: Nutrition Focused Physical Exam: Unable to Complete Exam: Potential for patient discomfort/ agitation Physical exam performed on (date): Assessment of Malnutrition: Malnutrition Identified: Additional Information Needed Nutrition Problem: Decreased nutrient needs Na related to clinical condition as evidenced by Na restricted diet. Status of Nutrition Diagnosis: New Nutrition Interventions and Recommendations: -Continue Cardiac, 2g Na diet -Liberalize Renal; low K+ if no longer medially warranted. -Novosource Renal TID -Monitor elytes, correct as needed -Please document all PO intake in flowsheet Nutrition Monitoring and Goals: -Nutrition labs trending to WNL -PO intake >/= 75% avg -Will [...] Alcohol use: Never Drug use: Never [4] ciprofloxacin, 500 mg, Oral, Daily ferrous sulfate, 324 mg, Oral, Daily with breakfast gabapentin, 300 mg, Oral, TID heparin (porcine), 5,000 Units, Subcutaneous, q8h YANIQUE lactulose, 20 g, Oral, Once metoprolol succinate XL, 25 mg, Oral, Daily nystatin, 1 Application, Topical, BID polyethylene glycol, 17 g, Oral, Daily rosuvastatin, 10 mg, Oral, Nightly senna, 17.2 mg, Oral, Nightly sodium chloride, 10 mL, Intravenous, q12h [5] [6] PRN medications: acetaminophen, bismuth subsalicylate, diphenhydrAMINE-zinc acetate, HYDROcodone-acetaminophen, melatonin, ondansetron ODT OR ondansetron OR ondansetron, Insert peripheralIV AND Saline lock IV AND sodium chloride AND sodium chloride, white petrolatum * Progress Notes - Lupe Valladares RN - 06/25/2025 9:43 AM EST Case Management Discharge Note Noe Caraballo 75 y.o. male CSN: [id number] Admission: 06/17/2025 4:17 PM Primary Problem: Heart failure Primary Medical Interpreter: Primary Caregiver: Self Assistance Available at Discharge: family will assist Housing Circumstances-Z Codes: Housing Circumstances (select all that apply): None Applicable Patient Referred to Financial or Community Resources: n/a Discharge Facility/Level of Care Needs: Discharge Facility/Level of Care Needs: 1-Home or Self Care Patient's Choice of Community Agency(s): Patient's Choice of Community Agency(s): n/a Patient/Family Anticipated Services at Transition: Patient/Family Anticipated Services at Transition: none DME/Equipment Needed after Discharge: Equipment Currently Used at Home: walker, rolling, shower chair Equipment Needed After Discharge: none Readmission Within the Last 30 Days: Readmission Within the Last 30 Days: no previous admission in last 30 days Medicare Documentation: Medicare Second Notice?: Yes Date Second Notice Completed: 06/25/25 Time Second Notice Completed: 939 Medicare Second Notice Recieved By: patient Follow-up: No follow-up provider specified. Discharge Transportation: Transportation Anticipated: family or friend will provide Transportation Home at Discharge: Family/Friend will Provide Follow Up Transport: Transportation Needed to Follow up Appoinments: Family/Friend will Provide Additional Comments: Per primary team patient may discharge this afternoon. No CM/SW needs identified. Family will assist and transport. Lupe Valladares RN * Care Plan - Bella Boland RN - 06/25/2025 8:00 AM EST Problem: Adult Inpatient Plan of Care Goal: Plan of Care Review Outcome: Ongoing, Progressing Flowsheets (Taken 06/25/2025799) Progress: improving Plan of Care Reviewed With: patient Goal: Patient-Specific Goal (Individualized) Outcome: Ongoing, Progressing Goal: Absence of Hospital-Acquired Illness or Injury Outcome: Ongoing, Progressing Intervention: Prevent Skin Injury Flowsheets (Taken 06/25/2025799) Skin Protection: incontinence pads utilized transparent dressing maintained Intervention: Prevent Infection Flowsheets (Taken 06/24/2025799) Infection Prevention: hand hygiene promoted Goal: Optimal Comfort and Wellbeing Outcome: Ongoing, Progressing Intervention: Monitor Pain and Promote Comfort Flowsheets (Taken 06/25/2025799) Pain Management Interventions: pillow support provided position adjusted quiet environment facilitated Intervention: Provide Person-Centered Care Flowsheets (Taken 06/25/2025799) Trust Relationship/Rapport: care explained choices provided thoughts/feelings acknowledged Problem: Skin Injury Risk Increased Goal: Skin Health and Integrity Outcome: Ongoing, Progressing Intervention: Optimize Skin Protection Flowsheets (Taken 06/25/2025799) Activity Management: activity adjusted per tolerance education provided Pressure Reduction Devices: positioning supports utilized Skin Protection: incontinence pads utilized transparent dressing maintained Intervention: Promote and Optimize Oral Intake Flowsheets (Taken 06/25/2025799) Oral Nutrition Promotion: physical activity promoted Nutrition Interventions: food preferences provided Problem: Dysrhythmia Goal: Normalized Cardiac Rhythm Outcome: Ongoing, Progressing Intervention: Monitor and Manage Cardiac Rhythm Effect Flowsheets (Taken 06/25/2025799) Stabilization Measures: legs elevated Problem: Fluid Volume Excess Goal: Fluid Balance Outcome: Ongoing, Progressing Intervention: Monitor and Manage Hypervolemia Flowsheets (Taken 06/25/2025799) Fluid/Electrolyte Management: fluids restricted Skin Protection: incontinence pads utilized transparent dressing maintained Problem: Fall Injury Risk Goal: Absence of Fall and Fall-Related Injury Outcome: Ongoing, Progressing Intervention: Identify and Manage Contributors Flowsheets Taken 06/25/2025799 Self-Care Promotion: independence encouraged adaptive equipment use encouraged Taken 06/24/2025 1257 Medication Review/Management: medications reviewed Problem: Heart Failure Goal: Optimal Coping Outcome: Ongoing, Progressing Intervention: Support Psychosocial Response Flowsheets (Taken 06/25/2025799) Supportive Measures: active listening utilized verbalization of feelings encouraged Family/Support System Care: support provided Goal: Optimal Cardiac Output and Blood Flow Outcome: Ongoing, Progressing Intervention: Optimize Cardiac Output Flowsheets (Taken 06/25/2025 0800) Stabilization Measures: legs elevated Environmental Support: calm environment promoted Goal: Fluid and Electrolyte Balance Outcome: Ongoing, Progressing Intervention: Monitor and Manage Fluid and Electrolyte Balance Flowsheets (Taken 06/25/2025 0800) Fluid/Electrolyte Management: fluids restricted Goal: Optimal Functional Ability Outcome: Ongoing, Progressing Intervention: Optimize Functional Ability Flowsheets (Taken 06/25/2025 0800) Activity Management: activity adjusted per tolerance education provided Self-Care Promotion: independence encouraged adaptive equipment use encouraged Goal: Improved Oral Intake Outcome: Ongoing, Progressing Intervention: Promote and Optimize Nutrition Intake Flowsheets (Taken 06/25/2025 08) Oral Nutrition Promotion: physical activity promoted Nutrition Interventions: food preferences provided Goal: Effective Oxygenation and Ventilation Outcome: Ongoing, Progressing Intervention: Promote Airway Secretion Clearance Flowsheets (Taken 06/25/2025 0800) Activity Management: activity adjusted per tolerance education provided Intervention: Optimize Oxygenation and Ventilation Flowsheets (Taken 06/25/2025 08) Airway/Ventilation Management: calming measures promoted position adjusted oxygen therapy provided Goal: Effective Breathing Pattern During Sleep Outcome: Ongoing, Progressing Intervention: Monitor and Manage Obstructive Sleep Apnea Flowsheets (Taken 06/24/2025 1257) Medication Review/Management: medications reviewed * Care Plan - Marianna Saeed RN - 06/25/2025 3:16 AM EST Problem: Adult Inpatient Plan of Care Goal: Plan of Care Review Outcome: Ongoing, Progressing Flowsheets (Taken 06/25/2025 0314) Progress: improving Plan of Care Reviewed With: patient Goal: Patient-Specific Goal (Individualized) Outcome: Ongoing, Progressing Goal: Absence of Hospital-Acquired Illness or Injury Outcome: Ongoing, Progressing Goal: Optimal Comfort and Wellbeing Outcome: Ongoing, Progressing Intervention: Monitor Pain and Promote Comfort Flowsheets (Taken 06/25/2025 0314) Pain Management Interventions: pain management plan reviewed with patient/caregiver rest quiet environment facilitated relaxation techniques promoted pillow support provided Problem: Skin Injury Risk Increased Goal: Skin Health and Integrity Outcome: Ongoing, Progressing Intervention: Optimize Skin Protection Flowsheets (Taken 06/25/2025313) Activity Management: activity adjusted per tolerance Pressure Reduction Techniques: frequent weight shift encouraged Head of Bed (HOB) Positioning: HOB at 30-45 degrees Problem: Dysrhythmia Goal: Normalized Cardiac Rhythm Outcome: Ongoing, Progressing Problem: Fluid Volume Excess Goal: Fluid Balance Outcome: Ongoing, Progressing Problem: Fall Injury Risk Goal: Absence of Fall and Fall-Related Injury Outcome: Ongoing, Progressing Intervention: Promote Injury-Free Environment Flowsheets (Taken 06/25/2025313) Safety Promotion/Fall Prevention: activity supervised assistive device/personal items within reach clutter-free environment maintained fall prevention program maintained lighting adjusted mobility aid in reach room organization consistent nonskid shoes/slippers when out of bed toileting scheduled safety round/check completed Problem: Heart Failure Goal: Optimal Coping Outcome: Ongoing, Progressing Goal: Optimal Cardiac Output and Blood Flow Outcome: Ongoing, Progressing Goal: Fluid and Electrolyte Balance Outcome: Ongoing, Progressing Goal: Optimal Functional Ability Outcome: Ongoing, Progressing Intervention: Optimize Functional Ability Flowsheets (Taken 06/25/2025313) Activity Management: activity adjusted per tolerance Goal: Improved Oral Intake Outcome: Ongoing, Progressing Goal: Effective Oxygenation and Ventilation Outcome: Ongoing, Progressing Goal: Effective Breathing Pattern During Sleep Outcome: Ongoing, Progressing * Progress Notes - Tamiko Segura MD - 06/24/2025 11:12 AM EST Images from the original note were not included. INPATIENT CARDIOLOGY ([facility]) DAILY PROGRESS NOTE SUBJECTIVE Overview: Noe Caraballo is a 75 y.o. male with significant PMHx of myelofibrosis s/p splenectomy 03/2024, chronic HFrEF 30-35%, severe MR, Afib not on AC, CKD, cirrhosis requiring biweekly paracentesis who presented to [facility] on 06/17/2025 with dyspnea on exertion and abdominal pain. Last 24 hours: Transitioned to oral bumex yesterday with UOP around 4L. RAUL stable though worsening contraction. Patient reports overall feeling well and that swelling greatly improved. OBJECTIVE Vitals Visit Vitals BP 85/54 Pulse 76 Temp 36.8 ??C (98.2 ??F) (Oral) Ht 1.6 m (5' 3 ) Wt 74.7 kg (164 lb 10.9 oz) SpO2 (!) 86% BMI 29.17 kg/m?? Intake/Output Summary (Last 24 hours) at 06/24/2025 1112 Last data filed at 06/24/2025 0740 Gross per 24 hour Intake 702 ml Output 4550 ml Net -3848 ml Net IO Since Admission: -19,255.74 mL [06/24/25 1112] O2 Delivery Method: Nasal cannula Physical Exam: Physical Exam Constitutional: Appearance: Normal appearance. HENT: Head: Normocephalic and atraumatic. Nose: Nose normal. Mouth/Throat: Mouth: Mucous membranes are moist. Eyes: Extraocular Movements: Extraocular movements intact. Pupils: Pupils are equal, round, and reactive to light. Cardiovascular: Rate and Rhythm: Normal rate and regular rhythm. Pulses: Normal pulses. Heart sounds: Normal heart sounds. Pulmonary: Effort: Pulmonary effort is normal. Breath sounds: Normal breath sounds. Abdominal: General: There is no distension. Tenderness: There is no abdominal tenderness. Musculoskeletal: General: Normal range of motion. Cervical back: Normal range of motion. Comments: Trace-1+ pitting edema on BLE Skin: General: Skin is warm and dry. Capillary Refill: Capillary refill takes less than 2 seconds. Coloration: Skin is not jaundiced. Neurological: General: No focal deficit present. Mental Status: He is alert and oriented to person, place, and time. Psychiatric: Mood and Affect: Mood normal. Labs and Imaging Labs in last 18 hours CBC WBC 78.89 (H) Hb 15.6 Plt 85 (L) Hct 50.6 ANC ?? INR ??, PTT ??, Anti-Xa ?? BMP Na 135 (L) Cl 84 (L) BUN 77 (H) Glu 142 (H) K 4.0 Co2 35 (H) Cr 2.91 (H) Ca 8.9 iCa ?? Mg 2.1, Phos 2.8 Lactate ?? LFT AST 74 (H) AlkPhos 490 (H) T Prot 6.3 ALK 19 Bili 1.9 (H) Alb ?? D.Bili ?? CXR (06/17): Atelectasis or scarring in the left midlung. Lungs are otherwise clear.. Heart and mediastinal contours are within normal limits. No pneumothorax. No pleural effusion. Bony structures are unremarkable. ASSESSMENT/PLAN Noe Caraballo is a 75 y.o. male with significant PMHx of myelofibrosis s/p splenectomy 03/2024, chronic HFrEF 30-35%, severe MR, Afib not on AC, CKD, cirrhosis requiring biweekly paracentesis who presented to [facility] on 06/17/2025 with dyspnea on exertion and abdominal pain with concern for acute on chronic HFrEF exacerbation. #Acute on chronic HFrEF (EF 30-35%) - Etiology: Suspect ICM given regional wall abnormalities on prior TTE. Current exacerbation likelysecondary to medication nonadherence as patient is unsure of which medications he is currently taking at home. - Profile: B - NYHA: III - ACC/AHA Stage: C - Home Medication(s): Spironolactone 12.5mg daily, Jardiance 10mg daily - Last TTE (05/2125): LVEF 28% - Last NTproBNP: 8695 - Established with Dr. 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 iso regional wall motion abnormalities; recommended RHC w/ hepatic wedge vs CCTA for further i nvestigation - Diuretic holiday today given improvement in volume status with worsening contraction on labs PLAN: - GDMT: BB: metop succinate 25mg daily FELIPE/ARB/ARNI: previously unable to tolerate d/t hypotension MRA: currently holding d/t RAUL SGLT2: holding iso RAUL - diuretic holiday today - will plan for lower dose of PO bumex tomorrow for maintenance diuresis if RAUL/contraction alkalosis improves after holding diuresis today - Strict I/Os #SVT - Patient had few runs of SVT, suspect secondary to HF and overload - Mildly symptomatic during events w/ feeling hot and dizzy though no events in around 24h - metoprolol succinate 25mg daily # Nonoliguric RAUL on CKD (POA) # Hyperkalemia, anion gap metabolic acidosis - Cr baseline 2-2.5, peaked at 3.2 and now stable though - Suspect now secondary to intravascular depletion after unexpected response to PO diuresis yesterday and contraction alkalosis on labs - Renal US showing only mild pelviectasis and patient making appropriate urine PLAN: - holding diuresis today - Strict Is&Os - continue regular BMP to monitor sCr and electrolytes # Decompensated Cirrhosis # Ascites - Presenting with diffuse abdominal pain and distention - History of multiple hospitalizations for SBP, with most recent in May 2025. Also requires scheduled paracentesis - patient reports getting these monthly - Last seen by GI in 09/2024: recommended prophylactic ciprofloxacin 500mg daily, but patient is nottaking - US Liver 05/20/25 showing mild coarsened hepatic echo texture suggestive of underlying chronic parenchymal disease. 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 Additionally high SAAG, but also low protein which usually does suggest some liver involvement rather than only cardiac per hepatology PLAN: - Continue cipro 500mg daily - Hepatology following, appreciate recs # Myelofibrosis s/p splenectomy 03/2024 - momelotinib dihydorchloride 200mg daily - Medication not formulary; spoke with daughter who is planning to bring though has not arrived yet #HDL - continue home rosuvastatin 10mg #Chronic Pain - continue home gabapentin 300mg TID DVT ppx: SQH Code Status: Full Code Dispo: CA3 Tamiko Segura MD Internal Medicine, PGY-1 jessica Cosigned by Sherly Malik MD at 06/24/2025 1:41 PM EST Associated attestation - Sherly Malik MD - 06/24/2025 1:41 PM EST I saw and evaluated the patient with the resident/fellow. I discussed the case with the resident/fellow and agree with the findings and plan as documented. Plan for diuretic holiday today. * Care Plan - Bella Boland RN - 06/24/2025 8:00 AM EST Problem: Adult Inpatient Plan of Care Goal: Plan of Care Review Outcome: Ongoing, Progressing Flowsheets (Taken 06/24/2025799) Progress: no change Plan of Care Reviewed With: patient Goal: Patient-Specific Goal (Individualized) Outcome: Ongoing, Progressing Goal: Absence of Hospital-Acquired Illness or Injury Outcome: Ongoing, Progressing Intervention: Identify and Manage Fall Risk Flowsheets (Taken 06/24/2025799) Safety Promotion/Fall Prevention: assistive device/personal items within reach safety round/check completed Intervention: Prevent Skin Injury Flowsheets (Taken 06/24/2025799) Body Position: weight shifting education provided Skin Protection: incontinence pads utilized Intervention: Prevent Infection Flowsheets (Taken 06/24/2025799) Infection Prevention: hand hygiene promoted Goal: Optimal Comfort and Wellbeing Outcome: Ongoing, Progressing Intervention: Monitor Pain and Promote Comfort Flowsheets (Taken 06/24/2025799) Pain Management Interventions: position adjusted pillow support provided quiet environment facilitated medication (see MAR) Intervention: Provide Person-Centered Care Flowsheets (Taken 06/24/2025799) Trust Relationship/Rapport: care explained choices provided thoughts/feelings acknowledged Problem: Skin Injury Risk Increased Goal: Skin Health and Integrity Outcome: Ongoing, Progressing Intervention: Optimize Skin Protection Flowsheets (Taken 06/24/2025799) Activity Management: activity adjusted per tolerance education provided Pressure Reduction Techniques: frequent weight shift encouraged Pressure Reduction Devices: positioning supports utilized Skin Protection: incontinence pads utilized Intervention: Promote and Optimize Oral Intake Flowsheets (Taken 06/24/2025799) Oral Nutrition Promotion: physical activity promoted Nutrition Interventions: food preferences provided Problem: Dysrhythmia Goal: Normalized Cardiac Rhythm Outcome: Ongoing, Progressing Intervention: Monitor and Manage Cardiac Rhythm Effect Flowsheets (Taken 06/24/2025799) Stabilization Measures: legs elevated Dysrhythmia Management: (telemetry monitored) -- Problem: Fluid Volume Excess Goal: Fluid Balance Outcome: Ongoing, Progressing Intervention: Monitor and Manage Hypervolemia Flowsheets (Taken 06/24/2025799) Fluid/Electrolyte Management: fluids restricted Skin Protection: incontinence pads utilized Problem: Fall Injury Risk Goal: Absence of Fall and Fall-Related Injury Outcome: Ongoing, Progressing Intervention: Identify and Manage Contributors Flowsheets (Taken 06/24/2025 1257) Medication Review/Management: medications reviewed Self-Care Promotion: independence encouraged Intervention: Promote Injury-Free Environment Flowsheets (Taken 06/24/2025 08) Safety Promotion/Fall Prevention: assistive device/personal items within reach safety round/check completed Problem: Heart Failure Goal: Optimal Coping Outcome: Ongoing, Progressing Intervention: Support Psychosocial Response Flowsheets (Taken 06/24/2025799) Supportive Measures: active listening utilized verbalization of feelings encouraged Goal: Optimal Cardiac Output and Blood Flow Outcome: Ongoing, Progressing Intervention: Optimize Cardiac Output Flowsheets (Taken 06/24/2025799) Stabilization Measures: legs elevated Environmental Support: calm environment promoted Goal: Fluid and Electrolyte Balance Outcome: Ongoing, Progressing Intervention: Monitor and Manage Fluid and Electrolyte Balance Flowsheets (Taken 06/24/2025 08) Fluid/Electrolyte Management: fluids restricted Goal: Optimal Functional Ability Outcome: Ongoing, Progressing Intervention: Optimize Functional Ability Flowsheets (Taken 06/24/2025799) Activity Management: activity adjusted per tolerance education provided Self-Care Promotion: independence encouraged Goal: Improved Oral Intake Outcome: Ongoing, Progressing Intervention: Promote and Optimize Nutrition Intake Flowsheets (Taken 06/24/2025799) Oral Nutrition Promotion: physical activity promoted Nutrition Interventions: food preferences provided Goal: Effective Oxygenation and Ventilation Outcome: Ongoing, Progressing Intervention: Promote Airway Secretion Clearance Flowsheets (Taken 06/24/2025799) Activity Management: activity adjusted per tolerance education provided Intervention: Optimize Oxygenation and Ventilation Flowsheets (Taken 06/24/2025799) Airway/Ventilation Management: oxygen therapy provided position adjusted Goal: Effective Breathing Pattern During Sleep Outcome: Ongoing, Progressing Intervention: Monitor and Manage Obstructive Sleep Apnea Flowsheets (Taken 06/24/2025799) Medication Review/Management: medications reviewed * Care Plan - Gladys Lora RN - 06/23/2025 5:31 PM EST Problem: Adult Inpatient Plan of Care Goal: Plan of Care Review Outcome: Ongoing, Progressing Flowsheets Taken 06/22/20251817 by Gladys Lora RN Progress: no change Taken 06/21/20252142 by Gladys Max RN Plan of Care Reviewed With: patient Goal: Patient-Specific Goal (Individualized) Outcome: Ongoing, Progressing Goal: Absence of Hospital-Acquired Illness or Injury Outcome: Ongoing, Progressing Goal: Optimal Comfort and Wellbeing Outcome: Ongoing, Progressing Problem: Skin Injury Risk Increased Goal: Skin Health and Integrity Outcome: Ongoing, Progressing Problem: Dysrhythmia Goal: Normalized Cardiac Rhythm Outcome: Ongoing, Progressing Problem: Fluid Volume Excess Goal: Fluid Balance Outcome: Ongoing, Progressing Problem: Fall Injury Risk Goal: Absence of Fall and Fall-Related Injury Outcome: Ongoing, Progressing * Progress Notes - Tamiko Segura MD - 06/23/2025 1:47 PM EST Images from the original note were not included. INPATIENT CARDIOLOGY (CA3) DAILY PROGRESS NOTE SUBJECTIVE Overview: Noe Caraballo is a 75 y.o. male with significant PMHx of myelofibrosis s/p splenectomy 03/2024, chronic HFrEF 30-35%, severe MR, Afib not on AC, CKD, cirrhosis requiring biweekly paracentesis who presented to [facility] on 06/17/2025 with dyspnea on exertion and abdominal pain. Last 24 hours: Continues to endorse improved swelling. No other acute concerns. Breathing well on RA. OBJECTIVE Vitals Visit Vitals BP (!) 82/49 (BP Location: Left arm, Patient Position: Lying) Pulse 70 Temp 36.5 ??C (97.7 ??F) (Oral) Ht 1.6 m (5' 3 ) Wt 76.5 kg (168 lb 10.4 oz) SpO2 90% BMI 29.88 kg/m?? Intake/Output Summary (Last 24 hours) at 06/23/2025 1347 Last data filed at 06/23/2025 1300 Gross per 24 hour Intake 822 ml Output 3300 ml Net -2478 ml Net IO Since Admission: -16,685.74 mL [06/23/25 1347] Physical Exam: Physical Exam Constitutional: Appearance: Normal appearance. HENT: Head: Normocephalic and atraumatic. Nose: Nose normal. Mouth/Throat: Mouth: Mucous membranes are moist. Eyes: Extraocular Movements: Extraocular movements intact. Pupils: Pupils are equal, round, and reactive to light. Cardiovascular: Rate and Rhythm: Normal rate and regular rhythm. Pulses: Normal pulses. Heart sounds: Normal heart sounds. Pulmonary: Effort: Pulmonary effort is normal. Breath sounds: Normal breath sounds. Abdominal: General: There is distension (mild, improving). Tenderness: There is no abdominal tenderness. Musculoskeletal: General: Normal range of motion. Cervical back: Normal range of motion. Comments: +1-2 bilateral LE pitting edema to thigh Skin: General: Skin is warm and dry. Capillary Refill: Capillary refill takes less than 2 seconds. Coloration: Skin is not jaundiced. Neurological: General: No focal deficit present. Mental Status: He is alert and oriented to person, place, and time. Psychiatric: Mood and Affect: Mood normal. Labs and Imaging Labs in last 18 hours CBC WBC 89.07 (HH) Hb 15.6 Plt 91 (L) Hct 50.5 ANC ?? INR ??, PTT ??, Anti-Xa ?? BMP Na 136 Cl 86 (L) BUN 72 (H) Glu 100 (H) K 4.0 Co2 34 (H) Cr 3.04 (H) Ca 8.7 (L) iCa ?? Mg 2.4, Phos 3.5 Lactate ?? LFT AST 81 (H) AlkPhos 435 (H) T Prot 6.2 (L) ALK 17 Bili 1.6 (H) Alb ?? D.Bili ?? CXR (06/17): Atelectasis or scarring in the left midlung. Lungs are otherwise clear.. Heart and mediastinal contours are within normal limits. No pneumothorax. No pleural effusion. Bony structures are unremarkable. ASSESSMENT/PLAN Noe Caraballo is a 75 y.o. male with significant PMHx of myelofibrosis s/p splenectomy 03/2024, chronic HFrEF 30-35%, severe MR, Afib not on AC, CKD, cirrhosis requiring biweekly paracentesis who presented to [facility] on 06/17/2025 with dyspnea on exertion and abdominal pain with concern for acute on chronic HFrEF exacerbation. #Acute on chronic HFrEF (EF 30-35%) - Etiology: Suspect ICM given regional wall abnormalities on prior TTE. Current exacerbation likelysecondary to medication nonadherence as patient is unsure of which medications he is currently taking at home. - Profile: B - NYHA: III - ACC/AHA Stage: C - Home Medication(s): Spironolactone 12.5mg daily, Jardiance 10mg daily - Last TTE (05/2125): LVEF 28% - Last NTproBNP: 8695 - Established with Dr. 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 iso regional wall motion abnormalities; recommended RHC w/ hepatic wedge vs CCTA for further i nvestigation - Volume status significantly improved, will transition to PO dosing today for maintenance management PLAN: - GDMT: BB: metop succinate 25mg daily starting tomorrow; continue Lopressor 12.5 BID through today FELIPE/ARB/ARNI: previously unable to tolerate d/t hypotension MRA: currently holding d/t RAUL SGLT2: holding iso RAUL - Bumex 4mg PO BID with goal net even - Strict I/Os #SVT - Patient had few runs of SVT, suspect secondary to HF and overload - Mildly symptomatic during events w/ feeling hot and dizzy though no events in around 24h - metoprolol succinate 25mg daily starting tomorrow as above # Nonoliguric RAUL on CKD (POA) # Hyperkalemia, anion gap metabolic acidosis - Cr baseline 2-2.5, peaked at 3.2 and now stable - Suspect 2/2 volume overload vs now possible contraction - Renal US showing only mild pelviectasis and patient making appropriate urine PLAN: - Diuresis as above - Strict Is&Os - continue regular BMP to monitor electrolytes while diuresing - Nephrology following, appreciate recs # Decompensated Cirrhosis # Ascites - Presenting with diffuse abdominal pain and distention - History of multiple hospitalizations for SBP, with most recent in May 2025. Also requires scheduled paracentesis - patient reports getting these monthly - Last seen by GI in 09/2024: recommended prophylactic ciprofloxacin 500mg daily, but patient is nottaking - US Liver 05/20/25 showing mild coarsened hepatic echo texture suggestive of underlying chronic parenchymal disease. 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 Additionally high SAAG, but also low protein which usually does suggest some liver involvement rather than only cardiac per hepatology PLAN: - Diuresis as above - Continue cipro 500mg daily - Hepatology following, appreciate recs # Myelofibrosis s/p splenectomy 03/2024 - momelotinib dihydorchloride 200mg daily - Medication not formulary; spoke with daughter who is planning to bring though has not arrived yet #HDL - continue home rosuvastatin 10mg #Chronic Pain - continue home gabapentin 300mg TID DVT ppx: SQH Code Status: Full Code Dispo: CA3 Tamiko Segura MD Internal Medicine, PGY-1 jessica Cosigned by Sherly Malik MD at 06/23/2025 5:34 PM EST Associated attestation - Sherly Malik MD - 06/23/2025 5:34 PM EST I saw and evaluated the patient with the resident/fellow. I discussed the case with the resident/fellow and agree with the findings and plan as documented. Plan to transition to oral bumex today. * Care Plan - Dustin Deleon - 06/23/2025 2:04 AM EST Problem: Adult Inpatient Plan of Care Goal: Plan of Care Review Outcome: Ongoing, Progressing Goal: Patient-Specific Goal (Individualized) Outcome: Ongoing, Progressing Goal: Absence of Hospital-Acquired Illness or Injury Outcome: Ongoing, Progressing Intervention: Identify and Manage Fall Risk Flowsheets (Taken 06/22/20252042) Safety Promotion/Fall Prevention: activity supervised fall prevention program maintained Goal: Optimal Comfort and Wellbeing Outcome: Ongoing, Progressing Intervention: Monitor Pain and Promote Comfort Flowsheets (Taken 06/21/20252142 by Gladys Max, RN) Pain Management Interventions: medication (see MAR) pain management plan reviewed with patient/caregiver Problem: Skin Injury Risk Increased Goal: Skin Health and Integrity Outcome: Ongoing, Progressing Intervention: Optimize Skin Protection Flowsheets Taken 06/22/20252042 by Dustin Deloen Activity Management: activity adjusted per tolerance Taken 06/22/2025 0200 by Gladys Max RN Head of Bed (HOB) Positioning: HOB elevated Taken 06/21/20252142 by Gladys Max RN Pressure Reduction Techniques: positioned off wounds Pressure Reduction Devices: positioning supports utilized Skin Protection: pulse oximeter probe site changed Problem: Dysrhythmia Goal: Normalized Cardiac Rhythm Outcome: Ongoing, Progressing Intervention: Monitor and Manage Cardiac Rhythm Effect Flowsheets Taken 06/22/2025 0800 by Gladys Lora RN VTE Prevention/Management: medication education provided Taken 06/21/20252138 by Gladys Max RN Stabilization Measures: legs elevated Taken 06/21/2025 0800 by Snehal Bettencourt RN Dysrhythmia Management: forceful cough encouraged Valsalva maneuver encouraged Problem: Fluid Volume Excess Goal: Fluid Balance Outcome: Ongoing, Progressing Intervention: Monitor and Manage Hypervolemia Flowsheets (Taken 06/21/20252142 by Gladys Max RN) Fluid/Electrolyte Management: fluids restricted Skin Protection: pulse oximeter probe site changed Problem: Fall Injury Risk Goal: Absence of Fall and Fall-Related Injury Outcome: Ongoing, Progressing Intervention: Identify and Manage Contributors Flowsheets (Taken 06/21/20252142 by Gladys Max RN) Medication Review/Management: medications reviewed Self-Care Promotion: BADL personal routines maintained * Care Plan - Gladys Lora RN - 06/22/2025 6:18 PM EST Problem: Adult Inpatient Plan of Care Goal: Plan of Care Review Outcome: Ongoing, Progressing Flowsheets Taken 06/22/20251817 by Gladys Lora RN Progress: no change Taken 06/21/20252142 by Gladys Max RN Plan of Care Reviewed With: patient Goal: Patient-Specific Goal (Individualized) Outcome: Ongoing, Progressing Goal: Absence of Hospital-Acquired Illness or Injury Outcome: Ongoing, Progressing Goal: Optimal Comfort and Wellbeing Outcome: Ongoing, Progressing Problem: Skin Injury Risk Increased Goal: Skin Health and Integrity Outcome: Ongoing, Progressing Problem: Dysrhythmia Goal: Normalized Cardiac Rhythm Outcome: Ongoing, Progressing Problem: Fluid Volume Excess Goal: Fluid Balance Outcome: Ongoing, Progressing Problem: Fall Injury Risk Goal: Absence of Fall and Fall-Related Injury Outcome: Ongoing, Progressing * Progress Notes - Sultana Pugh - 06/22/2025 2:55 PM EST Occupational Therapy Treatment Patient Name: Noe Caraballo Today's Date: 06/22/2025 OT Discharge Recommendations: Subacute rehab Equipment Recommended: Defer to facility Subjective Pt agreeable to OT session Participants in Care Family/Caregiver Present: No Exceptional Children Teacher: Not Applicable Presentation Oxygen Therapy: None (Room air) Male External Urinary Catheter 06/20/25 0000 (Active) Peripheral IV 06/17/25 Left Antecubital (Active) Peripheral IV 06/19/25 Right Antecubital (Active) Lines and Tubes: Telemetry Pre-Session: Supine, Head of bed elevated, Lines intact Pre-Session Comments: RN consent to tx Post-Session: Sitting in chair, Call light in reach, Lines intact, Chair alarm, RN notified Post-Session Comments: Needs met Precautions Medical Precautions: Fall precautions Objective Pain Pt reports pain all over , but does not rate. RN aware. Pt left in position of comfort at end of session Delirium Screening RASS: Alert and calm Confusion Assessment Method-ICU (CAM-ICU/PCAM-ICU) Feature 3: Altered Level of Consciousness: Negative Cognition Cognition Overall Cognitive Status: Within Functional Limits Arousal/Alertness: Appropriate responses to stimuli Mood/Behavior: Alert Single Step Commands: Consistently Multi-Step Commands: Consistently Bed Mobility Bed Mobility Exam: Scooting/Bridging Level of [place]: Contact guard (to scoot to edge of bed in sitting) Physical/Nonphysical Assist: Verbal Cues, Set-up required Bed Mobility Exam: Supine to Sit Level of [place]: Minimum assist (75% patient's effort) Physical/Nonphysical Assist: HOB elevated, Verbal Cues, Set-up required Transfers Transfer Exam: Sit to stand Level of [place]: Contact guard Physical/Nonphysical Assist: Verbal Cues, Set-up required Assistive Device: Rollator Transfer Exam: Stand to Sit Level of [place]: Contact guard Physical/Nonphysical Assist: Verbal Cues, Set-up required Assistive Device: Rollator Transfer Exam: Bed to Chair/Chair to Bed Level of [place]: Contact guard Physical/Nonphysical Assist: Additional assist utilized for safety, Verbal Cues, Set-up required Type of Transfer: Sidesteps Assistive Device: Rollator Self-Care Interventions Self Care/Home Management (ADLs) Time Entry: 29 OT provided the following skilled services: *grading of activity to provide just right challenge *training on body mechanics *environmental setup for safety to reduce fall risk Grooming Grooming Level of Assistance: Setup Grooming Where Assessed: Chair level Grooming Interventions: OT provided pt with warm wash cloth to engage in grooming once at chair level. Pt demo's ability to complete with setup assist Lower Extremity Dressing Sock Level of Assistance: Dependent LE Dressing Where Assessed: Edge of bed LE Dressing Interventions: Pt required dependent assist to don bilateral non- skid socks while seated at EOB Toileting Toileting Level of Assistance: Moderate assistance Toileting Interventions: Pt engaged in preparatory activity needed for toileting. OT provided setupfor functional transfer from bed to chair to simulate functional transfer to [facility]. Pt transitioned from supine to sitting EOB requiring Min A. Prior to transfer, OT provided dynamic sitting activity to assess safety for functional transfer. Pt required CGA for [id number] and side-steps transfer with rollator with mod verbal cues for safety, positioning, and PLB. Assessment Pt presents with impaired ADL performance, impaired functional mobility, and impaired activity tolerance. Pt requires physical assist for all functional mobility and ADL tasks at this time and is notcurrently safe to return home. Pt would benefit from subacute rehab to return pt to prior level of function, improve safety within the discharge environment, and decrease caregiver burden. Pt will benefit from skilled OT services to address aforementioned deficits. OT Recommendations Discharge Destination: Subacute rehab Discharge Equipment: Defer to facility Plan Plan to continue current POC Goals OT GOAL DETAILS Goal Established Date Time Frame Goal Status OT Goal 1: Pt will demonstrate toileting with mod A and LRAD 06/18/25 2 weeks OT Goal 2: Pt will demonstrate toilet transfer with min A and LRAD 06/18/25 2 weeks OT Goal 3: Pt will demonstrate dynamic reach during grooming in standing with CGA and LRAD 06/18/25 2 weeks Written by Sultana Pugh on 06/22/2025 at 3:28 PM. * Progress Notes - Lyssa Barcenas - 06/22/2025 2:54 PM EST Physical Therapy Treatment Patient Name: Noe Caraballo Today's Date: 06/22/2025 Total Treatment Time: 29 min PT Discharge Recommendations: Subacute rehab Equipment Recommended: Defer to facility Subjective The patient states, I am doing alright. Participants in Care Family/Caregiver Present: No Exceptional Children Teacher: Not Applicable Presentation Oxygen: None (Room air) Telemetry: Yes Lines and Tube: Male External Urinary Catheter 06/20/25 0000 (Active) Peripheral IV 06/17/25 Left Antecubital (Active) Peripheral IV 06/19/25 Right Antecubital (Active) Pre-Session: Supine, Head of bed elevated, Lines intact RN consent to tx Post-Session: Sitting in chair, Call light in reach, Lines intact, Chair alarm, RN notified Patientpositioned for comfort and pressure relief. Precautions Medical Precautions: Fall precautions Objective Pain Patient complained of sore all over. RN made aware; patient positioned for comfort and pressure relief. Delirium Screening RASS: Alert and calm Confusion Assessment Method-ICU (CAM-ICU/PCAM-ICU) Feature 3: Altered Level of Consciousness: Negative Therapeutic Activity (19 minutes) The patient sat edge of bed unsupported for improved activity tolerance to upright position approximately 10 minutes with CGA of 1 person progressing to SBA of 1 person; Verbal, visual, and tactile cues provided throughout treatment session for self-pacing, fall prevention, pursed lip breathing; Therapist monitored patient's vital signs throughout session to assess patient's continued tolerance to activity. Vital signs stable. Please see bed mobility and transfer section for further details. Bed Mobility Bed Mobility Interventions: Verbal cues provided for correct BUE placement and for sequencing. Bed Mobility Exam: Scooting/Bridging Level of [place]: Contact guard (to scoot to edge of bed in sitting) Physical/Nonphysical Assist: Verbal Cues, Set-up required Bed Mobility Exam: Supine to Sit Level of [place]: Minimum assist (75% patient's effort) Physical/Nonphysical Assist: HOB elevated, Verbal Cues, Set-up required Transfers Transfer Intervention: Verbal cues provided for correct bilateral hand and foot placement during sit to stand transfers. Transfer Exam: Sit to stand Level of [place]: Contact guard Physical/Nonphysical Assist: Verbal Cues, Set-up required Assistive Device: Rollator Transfer Exam: Stand to Sit Level of [place]: Contact guard Physical/Nonphysical Assist: Verbal Cues, Set-up required Assistive Device: Rollator Transfer Exam: Bed to Chair/Chair to Bed Level of [place]: Contact guard Physical/Nonphysical Assist: Additional assist utilized for safety, Verbal Cues, Set-up required Type of Transfer: Sidesteps Assistive Device: Rollator Therapeutic Exercise (10 minutes) Pt participated in bilateral LE exercises while sitting unsupported EOB and semi-reclined in recliner to address ROM, strength, muscular endurance and activity tolerance and assist in overall functional mobility performance. Pt performed ankle pumps, quad sets, heel slides, LAQs, hip abd/adduction,and alternating marches with AROM x 10 reps each. Pt instructed to perform prescribed HEP 2-3 sessions daily. Therapist provided verbal, visual, and tactile cues for correct completion and pursed lip-breathing. Assessment The patient fatigued easily with all activities and required frequent rest breaks. The patient is demonstrating improvement with bed mobility as noted by the patient required a decrease in the amountof assistance required to complete on this date than the previous session. The patient requires assistance for all mobility. The patient lives alone. The patient is unable to safely ambulate household distances. The patient is not at his previous functional baseline. Prior to admission the patient was independent with gait with device. The patient continues to present with the following impairments: decreased strength, decreased balance, decreased activity tolerance and decreased safety awareness. The patient will continue to benefit from skilled PT services to address deficits listed to decrease fall risk and maximize functional mobility levels to promote a safe return to the home. Patient may benefit from Subacute Rehab for the following reasons: Pt remains as a high fall risk and is unsafe for discharge to home Pt would benefit from further instruction improving functional transfers and ambulation Pt would likely benefit from a short Subacute Rehab stay where patient could become more independent performing transfers and ambulating Pt would likely benefit more from Subacute Rehab than other rehab services due to pt's medical acuity, level of immobility, and need for improved safety prior to returning home. Pt's current level of function is significantly declined as compared to pt's normal level and pt now requires significant assistance with functional tasks and ADLs. Pt would likely progress independence of functional mobility towards PLOF with therapy daily, whichis unable to be provided in the home health or acute care hospital settings.' PT Recommendations Discharge Destination: Subacute rehab Discharge Equipment: Defer to facility Plan Continue with established PT plan of care 2 - 5 times per week to progress towards PT goals. PT Goals PT GOAL DETAILS Goal Established Date Time Frame Goal Status PT Goal 1: Pt will perform supine<>sit transfers independently with HOB flat, no use of bed rails. 06/18/25 2 weeks PT Goal 2: Pt will perform sit to stand and bed to chair transfers with Tamiko and LRD. 06/18/25 PT Goal 3: Pt will ambulate 600ft with Tamiko and LRD. 06/18/25 2 weeks Written by Lyssa Barcenas on 06/22/2025 at 3:15 PM. * Progress Notes - Tamiko Segura MD - 06/22/2025 1:45 PM EST Images from the original note were not included. INPATIENT CARDIOLOGY ([facility]3) DAILY PROGRESS NOTE SUBJECTIVE Overview: Noe Caraballo is a 75 y.o. male with significant PMHx of myelofibrosis s/p splenectomy 03/2024, chronic HFrEF 30-35%, severe MR, Afib not on AC, CKD, cirrhosis requiring biweekly paracentesis who presented to [facility] on 06/17/2025 with dyspnea on exertion and abdominal pain. Last 24 hours: No episodes of SVT overnight. Feels overall swelling is improved. On RA at bedside. OBJECTIVE Vitals Visit Vitals BP 90/59 (BP Location: Left arm, Patient Position: Sitting) Pulse 76 Temp 36.3 ??C (97.3 ??F) (Oral) Ht 1.6 m (5' 3 ) Wt 76.8 kg (169 lb 5 oz) SpO2 90% BMI 29.99 kg/m?? Intake/Output Summary (Last 24 hours) at 06/22/2025 1345 Last data filed at 06/22/2025 0300 Gross per 24 hour Intake 600 ml Output 2800 ml Net -2200 ml Net IO Since Admission: -14,207.74 mL [06/22/25 1345] Physical Exam: Physical Exam Constitutional: Appearance: Normal appearance. HENT: Head: Normocephalic and atraumatic. Nose: Nose normal. Mouth/Throat: Mouth: Mucous membranes are moist. Eyes: Extraocular Movements: Extraocular movements intact. Pupils: Pupils are equal, round, and reactive to light. Cardiovascular: Rate and Rhythm: Normal rate and regular rhythm. Pulses: Normal pulses. Heart sounds: Normal heart sounds. Pulmonary: Effort: Pulmonary effort is normal. Breath sounds: Normal breath sounds. Abdominal: General: There is distension (mild, improved). Tenderness: There is no abdominal tenderness. Musculoskeletal: General: Normal range of motion. Cervical back: Normal range of motion. Skin: General: Skin is warm and dry. Capillary Refill: Capillary refill takes less than 2 seconds. Coloration: Skin is not jaundiced. Comments: +2 bilateral LE pitting edema to thigh Neurological: General: No focal deficit present. Mental Status: He is alert and oriented to person, place, and time. Psychiatric: Mood and Affect: Mood normal. Labs and Imaging Labs in last 18 hours CBC WBC 88.77 (HH) Hb 15.7 Plt 82 (L) Hct 50.1 ANC ?? INR ??, PTT ??, Anti-Xa ?? BMP Na 135 (L) Cl 87 (L) BUN 68 (H) Glu 128 (H) K 3.9 Co2 34 (H) Cr 2.98 (H) Ca 8.8 (L) iCa ?? Mg 1.8 (L), Phos 3.8 Lactate ?? LFT AST 56 (H) AlkPhos 404 (H) T Prot 6.0 (L) ALK 17 Bili 1.6 (H) Alb ?? D.Bili ?? Paracentesis: 4L CXR (06/17): Atelectasis or scarring in the left midlung. Lungs are otherwise clear.. Heart and mediastinal contours are within normal limits. No pneumothorax. No pleural effusion. Bony structures are unremarkable. ASSESSMENT/PLAN Noe Caraballo is a 75 y.o. male with significant PMHx of myelofibrosis s/p splenectomy 03/2024, chronic HFrEF 30-35%, severe MR, Afib not on AC, CKD, cirrhosis requiring biweekly paracentesis who presented to [facility] on 06/17/2025 with dyspnea on exertion and abdominal pain with concern for acute on chronic HFrEF exacerbation. #Acute on chronic HFrEF (EF 30-35%) - Etiology: Suspect ICM given regional wall abnormalities on prior TTE. Current exacerbation likelysecondary to medication nonadherence as patient is unsure of which medications he is currently taking at home. - Profile: B - NYHA: III - ACC/AHA Stage: C - Home Medication(s): Spironolactone 12.5mg daily, Jardiance 10mg daily - Last TTE (05/2125): LVEF 28% - Last NTproBNP: 8695 - Established with Dr. 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 iso regional wall motion abnormalities; recommended RHC w/ hepatic wedge vs CCTA for further i nvestigation - Significant improvement in volume status since admission, trying intermittent diuresis today withplans to possible transition to PO dosing once patient closer to euvolemia PLAN: - GDMT: BB: metop tartrate 12.5 BID with plans to consolidate to metop succinate if he tolerates FELIPE/ARB/ARNI: previously unable to tolerate d/t hypotension MRA: currently holding d/t hyperkalemia SGLT2: holding iso RAUL - Bumex 4mg IV today - Strict I/Os #SVT - Patient has had multiple runs of SVT since 06/19, suspect secondary to HF and overload - Mildly symptomatic during events w/ feeling hot and dizzy though no events in around 24h - metoprolol 12.5mg BID for now as above # Nonoliguric RAUL on CKD (POA) # Hyperkalemia, anion gap metabolic acidosis - Cr baseline 2-2.5, peaked at 3.2 and now stable - Suspect 2/2 volume overload - Renal US showing only mild pelviectasis and patient making appropriate urine PLAN: - Diuresis as above - Strict Is&Os - BID BMP to monitor electrolytes while diuresing - Nephrology following, appreciate recs # Decompensated Cirrhosis # Ascites - Presenting with diffuse abdominal pain and distention - History of multiple hospitalizations for SBP, with most recent in May 2025. Also requires scheduled paracentesis - Last seen by GI in 09/2024: recommended prophylactic ciprofloxacin 500mg daily, but patient is nottaking - US Liver 05/20/25 showing mild coarsened hepatic echo texture suggestive of underlying chronic parenchymal disease. 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 Additionally high SAAG, but also low protein which usually does suggest some liver involvement rather than only cardiac per hepatology PLAN: - Diuresis as above - Continue cipro 500mg daily - Hepatology following, appreciate recs # Myelofibrosis s/p splenectomy 03/2024 - momelotinib dihydorchloride 200mg daily - Medication not formulary; spoke with daughter who is planning to bring though has not arrived yet #HDL - continue home rosuvastatin 10mg #Chronic Pain - continue home gabapentin 300mg TID DVT ppx: SQH Code Status: Full Code Dispo: CA3 Tamiko Segura MD Internal Medicine, PGY-1 jessica Cosigned by Sherly Malik MD at 06/23/2025 5:34 PM EST Associated attestation - Sherly Malik MD - 06/23/2025 5:34 PM EST I saw and evaluated the patient with the resident/fellow. I discussed the case with the resident/fellow and agree with the findings and plan as documented. * Care Plan - Gladys Max RN - 06/21/2025 9:42 PM EST Problem: Adult Inpatient Plan of Care Goal: Plan of Care Review Outcome: Ongoing, Progressing Flowsheets (Taken 06/21/20252138) Progress: no change Plan of Care Reviewed With: patient Goal: Patient-Specific Goal (Individualized) Outcome: Ongoing, Progressing Flowsheets (Taken 06/21/20252138) Patient/Family-Specific Goals (Include Timeframe): patient will remain free from falls and injury during this shift Individualized Care Needs: patient safety Anxieties, Fears or Concerns: denies Goal: Absence of Hospital-Acquired Illness or Injury Outcome: Ongoing, Progressing Intervention: Identify and Manage Fall Risk Flowsheets (Taken 06/21/20252138) Safety Promotion/Fall Prevention: activity supervised assistive device/personal items within reach clutter-free environment maintained fall prevention program maintained lighting adjusted mobility aid in reach nonskid shoes/slippers when out of bed room organization consistent safety round/check completed toileting scheduled Intervention: Prevent Skin Injury Flowsheets (Taken 06/21/20252138) Body Position: neutral body alignment weight shifting Skin Protection: pulse oximeter probe site changed Intervention: Prevent and Manage VTE (Venous Thromboembolism) Risk Flowsheets (Taken 06/21/20252138) VTE Prevention/Management: bilateral lower extremity SCDs (sequential compression devices) off other (see comments) Note: Pt comfort care Intervention: Prevent Infection Flowsheets (Taken 06/21/20252138) Infection Prevention: environmental surveillance performed equipment surfaces disinfected hand hygiene promoted personal protective equipment utilized rest/sleep promoted single patient room provided Goal: Optimal Comfort and Wellbeing Outcome: Ongoing, Progressing Intervention: Monitor Pain and Promote Comfort Flowsheets (Taken 06/21/20252138) Pain Management Interventions: medication (see MAR) pain management plan reviewed with patient/caregiver Intervention: Provide Person-Centered Care Flowsheets (Taken 06/21/20252138) Trust Relationship/Rapport: care explained questions answered choices provided emotional support provided empathic listening provided questions encouraged reassurance provided thoughts/feelings acknowledged Problem: Skin Injury Risk Increased Goal: Skin Health and Integrity Outcome: Ongoing, Progressing Intervention: Optimize Skin Protection Flowsheets (Taken 06/21/20252138) Activity Management: activity adjusted per tolerance Pressure Reduction Techniques: positioned off wounds Skin Protection: pulse oximeter probe site changed Head of Bed (HOB) Positioning: HOB elevated Intervention: Promote and Optimize Oral Intake Flowsheets (Taken 06/21/20252138) Oral Nutrition Promotion: physical activity promoted Nutrition Interventions: food preferences provided Problem: Adult Inpatient Plan of Care Goal: Plan of Care Review 06/21/20252142 by Gladys Max, RN Outcome: Ongoing, Progressing Flowsheets (Taken 06/21/20252142) Progress: no change Plan of Care Reviewed With: patient 06/21/20252138 by Gladys Max RN Outcome: Ongoing, Progressing Flowsheets (Taken 06/21/20252138) Progress: no change Plan of Care Reviewed With: patient Goal: Patient-Specific Goal (Individualized) 06/21/20252142 by Gladys Max RN Outcome: Ongoing, Progressing Flowsheets (Taken 06/21/20252142) Patient/Family-Specific Goals (Include Timeframe): patient will remian free from falls and injury during this shift Individualized Care Needs: patient safety Anxieties, Fears or Concerns: denies 06/21/20252138 by Gladys Max RN Outcome: Ongoing, Progressing Flowsheets (Taken 06/21/20252138) Patient/Family-Specific Goals (Include Timeframe): patient will remain free from falls and injury during this shift Individualized Care Needs: patient safety Anxieties, Fears or Concerns: denies Goal: Absence of Hospital-Acquired Illness or Injury 06/21/20252142 by Gladys Max RN Outcome: Ongoing, Progressing 06/21/20252138 by Gladys Max RN Outcome: Ongoing, Progressing Intervention: Identify and Manage Fall Risk 06/21/20252142 by Gladys Max RN Flowsheets (Taken 06/21/20252142) Safety Promotion/Fall Prevention: activity supervised assistive device/personal items within reach clutter-free environment maintained fall prevention program maintained lighting adjusted mobility aid in reach nonskid shoes/slippers when out of bed room organization consistent safety round/check completed 06/21/20252138 by Gladys Max RN Flowsheets (Taken 06/21/20252138) Safety Promotion/Fall Prevention: activity supervised assistive device/personal items within reach clutter-free environment maintained fall prevention program maintained lighting adjusted mobility aid in reach nonskid shoes/slippers when out of bed room organization consistent safety round/check completed toileting scheduled Intervention: Prevent Skin Injury 06/21/20252142 by Gladys Max RN Flowsheets (Taken 06/21/20252142) Body Position: neutral body alignment weight shifting Skin Protection: pulse oximeter probe site changed 06/21/20252138 by Gladys Max RN Flowsheets (Taken 06/21/20252138) Body Position: neutral body alignment weight shifting Skin Protection: pulse oximeter probe site changed Intervention: Prevent and Manage VTE (Venous Thromboembolism) Risk 06/21/20252142 by Gladys Max RN Flowsheets (Taken 06/21/20252142) VTE Prevention/Management: bilateral SCDs (sequential compression devices) off medication 06/21/20252138 by Gladys Max RN Flowsheets (Taken 06/21/20252138) VTE Prevention/Management: bilateral lower extremity SCDs (sequential compression devices) off other (see comments) Note: Pt comfort care Intervention: Prevent Infection 06/21/20252142 by Gladys Max RN Flowsheets (Taken 06/21/20252142) Infection Prevention: cohorting utilized environmental surveillance performed equipment surfaces disinfected hand hygiene promoted personal protective equipment utilized rest/sleep promoted single patient room provided 06/21/20252138 by Gladys Max RN Flowsheets (Taken 06/21/20252138) Infection Prevention: environmental surveillance performed equipment surfaces disinfected hand hygiene promoted personal protective equipment utilized rest/sleep promoted single patient room provided Goal: Optimal Comfort and Wellbeing 06/21/20252142 by Gladys Max RN Outcome: Ongoing, Progressing 06/21/20252138 by Gladys Max RN Outcome: Ongoing, Progressing Intervention: Monitor Pain and Promote Comfort 06/21/20252142 by Gladys Max RN Flowsheets (Taken 06/21/20252142) Pain Management Interventions: medication (see MAR) pain management plan reviewed with patient/caregiver 06/21/20252138 by Gladys Max RN Flowsheets (Taken 06/21/20252138) Pain Management Interventions: medication (see MAR) pain management plan reviewed with patient/caregiver Intervention: Provide Person-Centered Care 06/21/20252142 by Gladys Max RN Flowsheets (Taken 06/21/20252142) Trust Relationship/Rapport: care explained choices provided emotional support provided empathic listening provided questions answered questions encouraged reassurance provided thoughts/feelings acknowledged 06/21/20252138 by Gladys Max RN Flowsheets (Taken 06/21/20252138) Trust Relationship/Rapport: care explained questions answered choices provided emotional support provided empathic listening provided questions encouraged reassurance provided thoughts/feelings acknowledged Problem: Skin Injury Risk Increased Goal: Skin Health and Integrity 06/21/20252142 by Gladys Max RN Outcome: Ongoing, Progressing 06/21/20252138 by Gladys Max RN Outcome: Ongoing, Progressing Intervention: Optimize Skin Protection 06/21/20252142 by Gladys Max RN Flowsheets (Taken 06/21/20252142) Activity Management: activity adjusted per tolerance Pressure Reduction Techniques: positioned off wounds Pressure Reduction Devices: positioning supports utilized Skin Protection: pulse oximeter probe site changed Head of Bed (HOB) Positioning: HOB elevated 06/21/20252138 by Gladys Max RN Flowsheets (Taken 06/21/20252138) Activity Management: activity adjusted per tolerance Pressure Reduction Techniques: positioned off wounds Skin Protection: pulse oximeter probe site changed Head of Bed (HOB) Positioning: HOB elevated Intervention: Promote and Optimize Oral Intake 06/21/20252142 by Gladys Max RN Flowsheets (Taken 06/21/20252142) Oral Nutrition Promotion: physical activity promoted Nutrition Interventions: food preferences provided 06/21/20252138 by Gladys Max RN Flowsheets (Taken 06/21/20252138) Oral Nutrition Promotion: physical activity promoted Nutrition Interventions: food preferences provided Problem: Dysrhythmia Goal: Normalized Cardiac Rhythm 06/21/20252142 by Gladys Max RN Outcome: Ongoing, Progressing 06/21/20252138 by Gladys Max RN Outcome: Ongoing, Progressing Intervention: Monitor and Manage Cardiac Rhythm Effect 06/21/20252142 by Gladys Max RN Flowsheets (Taken 06/21/20252142) VTE Prevention/Management: bilateral SCDs (sequential compression devices) off medication 06/21/20252138 by Gladys Max RN Flowsheets (Taken 06/21/20252138) Stabilization Measures: legs elevated VTE Prevention/Management: bilateral lower extremity SCDs (sequential compression devices) off other (see comments) Problem: Fluid Volume Excess Goal: Fluid Balance 06/21/20252142 by Gladys Max RN Outcome: Ongoing, Progressing 06/21/20252138 by Gladys Max RN Outcome: Ongoing, Progressing Intervention: Monitor and Manage Hypervolemia 06/21/20252142 by Gladys Max RN Flowsheets (Taken 06/21/20252142) Fluid/Electrolyte Management: fluids restricted Skin Protection: pulse oximeter probe site changed 06/21/20252138 by Gladys Max RN Flowsheets (Taken 06/21/20252138) Fluid/Electrolyte Management: fluids provided Skin Protection: pulse oximeter probe site changed Problem: Fall Injury Risk Goal: Absence of Fall and Fall-Related Injury 06/21/20252142 by Gladys Max RN Outcome: Ongoing, Progressing 06/21/20252138 by Gladys Max RN Outcome: Ongoing, Progressing Intervention: Identify and Manage Contributors Flowsheets (Taken 06/21/20252142) Medication Review/Management: medications reviewed Self-Care Promotion: BADL personal routines maintained Intervention: Promote Injury-Free Environment Flowsheets (Taken 06/21/20252142) Safety Promotion/Fall Prevention: activity supervised assistive device/personal items within reach clutter-free environment maintained fall prevention program maintained lighting adjusted mobility aid in reach nonskid shoes/slippers when out of bed room organization consistent safety round/check completed * Care Plan - Snehal Bettencourt RN - 06/21/2025 7:49 PM EST Problem: Adult Inpatient Plan of Care Goal: Plan of Care Review Outcome: Ongoing, Progressing Flowsheets (Taken 06/21/2025 0800) Progress: improving Plan of Care Reviewed With: patient Goal: Patient-Specific Goal (Individualized) Outcome: Ongoing, Progressing Goal: Absence of Hospital-Acquired Illness or Injury Outcome: Ongoing, Progressing Intervention: Prevent and Manage VTE (Venous Thromboembolism) Risk Note: Massive edema Intervention: Prevent Infection Flowsheets (Taken 06/20/20252155 by Bourgeois, Gladys J, RN) Infection Prevention: environmental surveillance performed equipment surfaces disinfected hand hygiene promoted personal protective equipment utilized rest/sleep promoted single patient room provided Goal: Optimal Comfort and Wellbeing Outcome: Ongoing, Progressing Intervention: Monitor Pain and Promote Comfort Flowsheets (Taken 06/21/2025 1321) Pain Management Interventions: medication (see MAR) position adjusted pillow support provided Intervention: Provide Person-Centered Care Flowsheets (Taken 06/20/20252155 by Gladys Max, RN) Trust Relationship/Rapport: care explained choices provided emotional support provided empathic listening provided questions answered questions encouraged reassurance provided thoughts/feelings acknowledged Problem: Skin Injury Risk Increased Goal: Skin Health and Integrity Outcome: Ongoing, Progressing Intervention: Optimize Skin Protection Flowsheets (Taken 06/21/2025 08) Pressure Reduction Techniques: frequent weight shift encouraged heels elevated off bed Pressure Reduction Devices: positioning supports utilized chair cushion utilized Intervention: Promote and Optimize Oral Intake Flowsheets (Taken 06/21/2025 08) Oral Nutrition Promotion: physical activity promoted Nutrition Interventions: food preferences provided frequent small meals provided Problem: Dysrhythmia Goal: Normalized Cardiac Rhythm Outcome: Ongoing, Progressing Intervention: Monitor and Manage Cardiac Rhythm Effect Flowsheets (Taken 06/21/2025 08) Stabilization Measures: legs elevated Dysrhythmia Management: forceful cough encouraged Valsalva maneuver encouraged Problem: Fluid Volume Excess Goal: Fluid Balance Outcome: Ongoing, Progressing Intervention: Monitor and Manage Hypervolemia Flowsheets (Taken 06/21/2025 08) Fluid/Electrolyte Management: fluids restricted Problem: Fall Injury Risk Goal: Absence of Fall and Fall-Related Injury Outcome: Ongoing, Progressing Intervention: Identify and Manage Contributors Flowsheets Taken 06/21/2025 08 by Snehal Bettencourt RN Medication Review/Management: medications reviewed high-risk medications identified Taken 06/20/20252155 by Gladys Max RN Self-Care Promotion: BADL personal objects within reach BADL personal routines maintained meal set-up provided * Progress Notes - Domingo Parmar RN - 06/21/2025 2:05 PM EST Images from the original note were not included. Wound Care Consult Visit Date: 06/21/2025 Patient Name: Noe Caraballo Date of : 1950 Admit Date: 06/17/2025 Reason for Consult: IP Wound Orders (From admission, onward) Start Ordered 06/19/251832 Wound ostomy eval and treat 2 Wounds Associated Once Comments: Appreciate recs Question: Instructions: Answer: Prior to sending evaluation & treat order, place wound/ostomy LDA, complete a wound/ostomy assessment, and consider taking a photograph to document. 06/19/251831 Wound History: admitted 06/17/2025 for acute decompensated heart failure with volume overload, worsening renal function, and ascites in the setting of complex cardiac, hepatic, and hematologic comorbidities Wound Assessment: Wound 06/19/25 Atypical Face Left;Upper (Active) Date First Assessed/Time First Assessed: 06/19/25 1200 Present on Original Admission: Yes Hand Hygiene Completed: Yes Primary Wound Type: Atypical Location: Face Wound Location Orientation: Left;Upper Wound Description (Comments): Scabbed wound... 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 Wound Team Plan: no further follow needed at this time. Please re-consult if new issues or concerns Domingo Parmar RN 06/21/2025 2:05 PM * Care Plan - Domingo Parmar RN - 06/21/2025 2:04 PM EST Problem: Skin Injury Risk Increased Goal: Skin Health and Integrity Outcome: Ongoing, Progressing Intervention: Optimize Skin Protection Flowsheets (Taken 06/21/2025 1404) Activity Management: activity adjusted per tolerance up in chair Pressure Reduction Techniques: positioned off wounds Pressure Reduction Devices: chair cushion utilized Skin Protection: incontinence pads utilized skin sealant/moisture barrier applied Patient evaluated by [facility] nurse, individualized recommendations placed and care plan interventions updated; see wound care note for details regarding recommendations to support optimal wound healing. * Progress Notes - Tamiko Segura MD - 06/21/2025 12:48 PM EST Images from the original note were not included. INPATIENT CARDIOLOGY (CA3) DAILY PROGRESS NOTE SUBJECTIVE Overview: Noe Caraballo is a 75 y.o. male with significant PMHx of myelofibrosis s/p splenectomy 03/2024, chronic HFrEF 30-35%, severe MR, Afib not on AC, CKD, cirrhosis requiring biweekly paracentesis who presented to [facility] on 06/17/2025 with dyspnea on exertion and abdominal pain. Last 24 hours: Few episodes of SVT this AM though aborted with carotid massage. Otherwise feels well today. Abd and leg swelling subjectively improved. OBJECTIVE Vitals Visit Vitals BP 106/77 (BP Location: Left arm, Patient Position: Sitting) Pulse (!) 153 Temp (!) 36.2 ??C (97.2 ??F) (Oral) Ht 1.6 m (5' 3 ) Wt 83.6 kg (184 lb 4.9 oz) SpO2 92% BMI 32.65 kg/m?? Intake/Output Summary (Last 24 hours) at 06/21/2025 1248 Last data filed at 06/21/2025 1126 Gross per 24 hour Intake 1460.6 ml Output 6600 ml Net -5139.4 ml Net IO Since Admission: -12,007.74 mL [06/21/25 1248] O2 Delivery Method: Nasal cannula Physical Exam: Physical Exam Constitutional: Appearance: Normal appearance. HENT: Head: Normocephalic and atraumatic. Nose: Nose normal. Mouth/Throat: Mouth: Mucous membranes are moist. Eyes: Extraocular Movements: Extraocular movements intact. Pupils: Pupils are equal, round, and reactive to light. Cardiovascular: Rate and Rhythm: Normal rate and regular rhythm. Pulses: Normal pulses. Heart sounds: Normal heart sounds. Pulmonary: Effort: Pulmonary effort is normal. Breath sounds: Normal breath sounds. Abdominal: General: There is distension (mild, improved). Tenderness: There is no abdominal tenderness. Musculoskeletal: General: Normal range of motion. Cervical back: Normal range of motion. Skin: General: Skin is warm and dry. Capillary Refill: Capillary refill takes less than 2 seconds. Coloration: Skin is not jaundiced. Comments: +2 bilateral LE pitting edema to thigh Neurological: General: No focal deficit present. Mental Status: He is alert and oriented to person, place, and time. Psychiatric: Mood and Affect: Mood normal. Labs and Imaging Labs in last 18 hours CBC WBC 89.06 (HH) Hb 16.6 Plt ?? Hct 53.0 (H) ANC ?? INR ??, PTT ??, Anti-Xa ?? BMP Na 134 (L) Cl 88 (L) BUN 66 (H) Glu 135 (H) K 4.5 Co2 31 (H) Cr 2.96 (H) Ca 8.9 iCa ?? Mg 2.0, Phos 4.3 Lactate ?? LFT AST 66 (H) AlkPhos 378 (H) T Prot 6.0 (L) ALK 15 Bili 1.5 (H) Alb ?? D.Bili ?? Paracentesis: 4L CXR (06/17): Atelectasis or scarring in the left midlung. Lungs are otherwise clear.. Heart and mediastinal contours are within normal limits. No pneumothorax. No pleural effusion. Bony structures are unremarkable. ASSESSMENT/PLAN Noe Caraballo is a 75 y.o. male with significant PMHx of myelofibrosis s/p splenectomy 03/2024, chronic HFrEF 30-35%, severe MR, Afib not on AC, CKD, cirrhosis requiring biweekly paracentesis who presented to [facility] on 06/17/2025 with dyspnea on exertion and abdominal pain with concern for acute on chronic HFrEF exacerbation and SBP. #Acute on chronic HFrEF (EF 30-35%) - Etiology: Suspect ICM given regional wall abnormalities on prior TTE. Current exacerbation likelysecondary to medication nonadherence as patient is unsure of which medications he is currently taking at home. - Profile: B - NYHA: III - ACC/AHA Stage: C - Home Medication(s): Spironolactone 12.5mg daily, Jardiance 10mg daily - Last TTE (05/2125): LVEF 28% - Last NTproBNP: 8695 - Established with Dr. 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 iso regional wall motion abnormalities; recommended RHC w/ hepatic wedge vs CCTA for further i nvestigation - Patient continues to be volume overloaded with increasing Cr. Minimally responsive to intermittent diuresis so started Bumex gtt to which patient has responded well and reports improvement in symptoms. Given significant output and improvement in symptoms, will transition off gtt this afternoon PLAN: - GDMT: BB: previously unable to tolerate d/t hypotension FELIPE/ARB/ARNI: previously unable to tolerate d/t hypotension MRA: currently holding d/t hyperkalemia SGLT2: holding iso RAUL - stopping bumex gtt this afternoon, will plan for trial of intermittent dosing tomorrow - Strict I/Os #SVT - Patient has had multiple runs of SVT since 06/19, suspect secondary to HF and overload - Mildly symptomatic during events w/ feeling hot and dizzy - Aborts with carotid massage, additionally gave 1x dose metoprolol tartrate to try and abort further conversion back to SVT # Nonoliguric RAUL on CKD (POA) # Hyperkalemia, anion gap metabolic acidosis - Cr baseline 2-2.5, peaked at 3.2 though now improving after significant diuresis so suspect most likely 2/2 volume overload - Renal US showing only mild pelviectasis and patient making appropriate urine PLAN: - Diuresis as above - Strict Is&Os - BID BMP to monitor electrolytes while diuresing - Nephrology following, appreciate recs # Decompensated Cirrhosis # Ascites - Presenting with diffuse abdominal pain and distention - History of multiple hospitalizations for SBP, with most recent in May 2025. Also requires scheduled paracentesis - Last seen by GI in 09/2024: recommended prophylactic ciprofloxacin 500mg daily, but patient is nottaking - US Liver 05/20/25 showing mild coarsened hepatic echo texture suggestive of underlying chronic parenchymal disease. 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 Additionally high SAAG, but also low protein which usually does suggest some liver involvement rather than only cardiac per hepatology PLAN: - Diuresis as above - Continue cipro 500mg daily - Hepatology following, appreciate recs # Myelofibrosis s/p splenectomy 03/2024 - momelotinib dihydorchloride 200mg daily - Medication not formulary; spoke with daughter who is planning to bring #HDL - continue home rosuvastatin 10mg #Chronic Pain - continue home gabapentin 300mg TID DVT ppx: SQH Code Status: Full Code Dispo: CA3 Tamiko Segura MD Internal Medicine, PGY-1 jessica Cosigned by Sherly Malik MD at 06/21/2025 9:07 PM EST Associated attestation - Sherly Malik MD - 06/21/2025 9:07 PM EST I saw and evaluated the patient with the resident/fellow. I discussed the case with the resident/fellow and agree with the findings and plan as documented. Patient on Bumex drip overnight with diuresis. Patient improving overall. Plan to continue diuresisand monitor electrolytes closely. Patient did have an episode of SVT this morning that was aborted with carotid massage we will continue to monitor closely. * Progress Notes - Gael, Miguel A - 06/21/2025 9:32 AM EST Case Management Adult Progress Note Noe Caraballo 75 y.o. male CSN: [id number] Admission: 06/17/2025 4:17 PM Primary Problem: Heart failure Anticipated Discharge Date: TBD Additional Comments Chart review completed. GRANT SHERIDAN attended rounding this AM to discuss POC with MD. Per the team, the patient is not medically ready for discharge at this time and the team continues to medically manage and monitor the patient. GRANT/RN CM will follow and arrange any discharge needs closer to discharge. Miguel A Mayo * Care Plan - Gladys Max RN - 06/20/2025 9:59 PM EST Problem: Adult Inpatient Plan of Care Goal: Plan of Care Review Outcome: Ongoing, Progressing Flowsheets (Taken 06/20/20252155) Progress: no change Plan of Care Reviewed With: patient Goal: Patient-Specific Goal (Individualized) Outcome: Ongoing, Progressing Flowsheets (Taken 06/20/20252155) Patient/Family-Specific Goals (Include Timeframe): pt will remain free from falls and injury duringthis shift Individualized Care Needs: denies Anxieties, Fears or Concerns: denies Goal: Absence of Hospital-Acquired Illness or Injury Outcome: Ongoing, Progressing Intervention: Identify and Manage Fall Risk Flowsheets (Taken 06/20/20252155) Safety Promotion/Fall Prevention: activity supervised assistive device/personal items within reach clutter-free environment maintained fall prevention program maintained lighting adjusted mobility aid in reach nonskid shoes/slippers when out of bed room organization consistent safety round/check completed toileting scheduled Intervention: Prevent Skin Injury Flowsheets (Taken 06/20/20252155) Body Position: weight shifting Skin Protection: protective footwear used Intervention: Prevent and Manage VTE (Venous Thromboembolism) Risk Flowsheets (Taken 06/20/20252155) VTE Prevention/Management: bilateral lower extremity SCDs (sequential compression devices) off medication Intervention: Prevent Infection Flowsheets (Taken 06/20/20252155) Infection Prevention: environmental surveillance performed equipment surfaces disinfected hand hygiene promoted personal protective equipment utilized rest/sleep promoted single patient room provided Goal: Optimal Comfort and Wellbeing Outcome: Ongoing, Progressing Intervention: Monitor Pain and Promote Comfort Flowsheets (Taken 06/20/20252155) Pain Management Interventions: care clustered Intervention: Provide Person-Centered Care Flowsheets (Taken 06/20/20252155) Trust Relationship/Rapport: care explained choices provided emotional support provided empathic listening provided questions answered questions encouraged reassurance provided thoughts/feelings acknowledged Problem: Skin Injury Risk Increased Goal: Skin Health and Integrity Outcome: Ongoing, Progressing Intervention: Optimize Skin Protection Flowsheets (Taken 06/20/20252155) Activity Management: activity adjusted per tolerance Pressure Reduction Techniques: frequent weight shift encouraged heels elevated off bed Pressure Reduction Devices: positioning supports utilized Skin Protection: protective footwear used Head of Bed (HOB) Positioning: HOB elevated Intervention: Promote and Optimize Oral Intake Flowsheets (Taken 06/20/20252155) Oral Nutrition Promotion: physical activity promoted Nutrition Interventions: food preferences provided Problem: Dysrhythmia Goal: Normalized Cardiac Rhythm Outcome: Ongoing, Progressing Intervention: Monitor and Manage Cardiac Rhythm Effect Flowsheets (Taken 06/20/20252155) VTE Prevention/Management: bilateral lower extremity SCDs (sequential compression devices) off medication Problem: Fluid Volume Excess Goal: Fluid Balance Outcome: Ongoing, Progressing Intervention: Monitor and Manage Hypervolemia Flowsheets (Taken 06/20/20252155) Fluid/Electrolyte Management: fluids restricted Skin Protection: protective footwear used Problem: Fall Injury Risk Goal: Absence of Fall and Fall-Related Injury Outcome: Ongoing, Progressing Intervention: Identify and Manage Contributors Flowsheets (Taken 06/20/20252155) Medication Review/Management: medications reviewed Self-Care Promotion: BADL personal objects within reach BADL personal routines maintained meal set-up provided * Care Plan - Snehal Bettencourt RN - 06/20/2025 8:10 PM EST Problem: Adult Inpatient Plan of Care Goal: Plan of Care Review Outcome: Ongoing, Progressing Flowsheets (Taken 06/20/2025799) Progress: no change Plan of Care Reviewed With: patient Goal: Patient-Specific Goal (Individualized) Outcome: Ongoing, Progressing Goal: Absence of Hospital-Acquired Illness or Injury Outcome: Ongoing, Progressing Intervention: Prevent Skin Injury Flowsheets (Taken 06/20/2025799) Skin Protection: protective footwear used incontinence pads utilized silicone foam dressing in place transparent dressing maintained Intervention: Prevent and Manage VTE (Venous Thromboembolism) Risk Flowsheets (Taken 06/20/2025799) VTE Prevention/Management: SCDs (sequential compression devices) off medication education provided other (see comments) Note: Pt massive edema Intervention: Prevent Infection Flowsheets (Taken 06/20/2025799) Infection Prevention: cohorting utilized environmental surveillance performed equipment surfaces disinfected hand hygiene promoted visitors restricted/screened single patient room provided rest/sleep promoted personal protective equipment utilized Goal: Optimal Comfort and Wellbeing Outcome: Ongoing, Progressing Intervention: Monitor Pain and Promote Comfort Flowsheets (Taken 06/20/2025 08) Pain Management Interventions: quiet environment facilitated position adjusted pillow support provided Intervention: Provide Person-Centered Care Flowsheets (Taken 06/19/20251999 by Brittany Murphy RN) Trust Relationship/Rapport: care explained choices provided questions encouraged reassurance provided emotional support provided empathic listening provided thoughts/feelings acknowledged questions answered Problem: Skin Injury Risk Increased Goal: Skin Health and Integrity Outcome: Ongoing, Progressing Intervention: Optimize Skin Protection Flowsheets Taken 06/20/2025799 by Snehal Bettencourt RN Activity Management: activity adjusted per tolerance ambulated to bathroom Pressure Reduction Devices: positioning supports utilized Skin Protection: protective footwear used incontinence pads utilized silicone foam dressing in place transparent dressing maintained Taken 06/19/20251999 by Brittany Murphy RN Pressure Reduction Techniques: frequent weight shift encouraged heels elevated off bed pressure points protected Intervention: Promote and Optimize Oral Intake Flowsheets (Taken 06/19/20251999 by Brittany Murphy RN) Oral Nutrition Promotion: physical activity promoted rest periods promoted Nutrition Interventions: food preferences provided Problem: Dysrhythmia Goal: Normalized Cardiac Rhythm Outcome: Ongoing, Progressing Intervention: Monitor and Manage Cardiac Rhythm Effect Flowsheets (Taken 06/20/2025 08) VTE Prevention/Management: SCDs (sequential compression devices) off medication education provided other (see comments) Note: Massive edema Problem: Fluid Volume Excess Goal: Fluid Balance Outcome: Ongoing, Progressing Intervention: Monitor and Manage Hypervolemia Flowsheets (Taken 06/20/2025 08) Fluid/Electrolyte Management: fluids restricted Skin Protection: protective footwear used incontinence pads utilized silicone foam dressing in place transparent dressing maintained Problem: Fall Injury Risk Goal: Absence of Fall and Fall-Related Injury Outcome: Ongoing, Progressing Intervention: Identify and Manage Contributors Flowsheets (Taken 06/20/2025 08) Medication Review/Management: medications reviewed high-risk medications identified Self-Care Promotion: independence encouraged BADL personal objects within reach * Progress Notes - Darryn Naidu MD - 06/20/2025 12:43 PM EST Nephrology Progress Note Patient: Noe Caraballo Admit Date: 06/17/2025 Reason for Consult: RAUL on CKD Subjective Patient seen and examined. Reviewed interval events, flowsheets, labs and notes. Mr. Caraballo with no acute complaints today. Making urine. On bumetanide drip. UOP 4.3L y/d Objective Visit Vitals BP 100/75 (BP Location: Right arm, Patient Position: Lying) Pulse 93 Temp 36.9 ??C (98.5 ??F) (Oral) Resp 18 Ht 1.6 m (5' 3 ) Wt 85.1 kg (187 lb 9.8 oz) SpO2 94% BMI 33.23 kg/m?? Smoking Status Never BSA 1.94 m?? Temp: [36.3 ??C (97.3 ??F)-37.1 ??C (98.8 ??F)] 36.9 ??C (98.5 ??F) Heart Rate: [74-156] 93 Resp: [12-19] 18 BP: (82-122)/(61-87) 100/75 Physical Exam: GEN: Alert and oriented, no acute distress HENT: Normocephalic, atraumatic, moist mucus membranes EYES: Clear conjunctivae bilaterally, EOMI NECK: Supple, trachea midline CV: Normal rate and regular rhythm, no murmurs, rubs or gallops RESP: Equal chest rise, clear to auscultation bilaterally GI: Soft, nontender, non-distended, BS + EXT: No edema, cyanosis or clubbing SKIN: Warm and dry, no rashes NEURO: A&OX3, moving all 4 extremities spontaneously, no gross focal deficit PSYCH: Normal mood and affect Problem List Principal Problem: Heart failure Medications: Current Medications: Current Scheduled Medications[1] Current Continuous Medications[2] Laboratory: LAB RESULTS Renal Panel: Lab Results Component Value Date NA 136 06/20/2025 K 5.1 (H) 06/20/2025 CL 93 (L) 06/20/2025 CO2 26 06/20/2025 BUN 67 (H) 06/20/2025 CREATININE 3.12 (H) 06/20/2025 EGFR 20.2 06/20/2025 CA 9.4 04/08/2016 PHOS 4.2 06/20/2025 ALBUMIN 3.3 (L) 06/20/2025 MBD: Lab Results Component Value Date CA 9.4 04/08/2016 CALCIUM 8.6 (L) 06/20/2025 PHOS 4.2 06/20/2025 MG 2.0 06/20/2025 VITAMIN D 25 No results found for: VITD25 PTHRP No results found for: PLASMA Urine studies: Lab Results Component Value Date CREATUR 15 06/18/2025 CBC: Lab Results Component Value Date WBC 76.58 (H) 06/20/2025 RBC 6.69 (H) 06/20/2025 HGB 16.7 06/20/2025 HCT 53.2 (H) 06/20/2025 PLT 84 (L) 06/20/2025 MCV 80 06/20/2025 MCH 25.0 (L) 06/20/2025 MCHC 31.4 06/20/2025 RDW 31.5 (H) 06/20/2025 NRBC 9.8 (H) 06/20/2025 Iron studies: Lab Results Component Value Date FERRITIN 88 05/21/2025 IRON 8 (L) 05/21/2025 TIBC 311 05/21/2025 Impression & Plan: Noe Caraballo is a 75 y.o. male with significant PMHx of myelofibrosis s/p splenectomy 03/2024, chronic HFrEF 30-35%, severe MR, Afib not on AC, CKD, cirrhosis requiring biweekly paracentesis who presented to [facility] on 06/17/2025 with dyspnea on exertion and abdominal pain with concern for acute on chronic HFrEF exacerbation and SBP Nephrology consulted due to worsening renal function Assessment: Non-oliguric RAUL/ATN on CKD (baseline Scr ~2-2.5) with peak Scr 3.0 Etiology less likely HRS in the setting of elevated Urine Na along with non- oliguric status of patient Other etiologies include volume depletion with a component of decreased EABV vs possible infectiousprocess/malignancy in the setting of severely elevated white count vs chemo induced. This could also be patient's new baseline Scr from worsening CKD Acute mild hyperkalemia AGMA Decompensated Cirrhosis Acute on chronic HFrEF (EF 30-35%) Recommendations and Plan: - Kidney function stable now on bumetanide drip. No major electrolyte abnormalities agree with bumetanide drip. - Follow labs closely - Renal function reduced however no acute indication for [facility] at the moment - Hold nephrotoxic agents and avoid IV contrast - Strict I/O and daily weights - Obtain renal ultrasound to r/o stone, tumor, obstruction Please call or page with any questions. Nephrology will continue to follow. Darryn Naidu MD Nephrology [1] ciprofloxacin, 500 mg, Oral, Daily ferrous sulfate, 324 mg, Oral, Daily with breakfast gabapentin, 300 mg, Oral, TID heparin (porcine), 5,000 Units, Subcutaneous, q8h YANIQEU nystatin, 1 Application, Topical, BID polyethylene glycol, 17 g, Oral, Daily rosuvastatin, 10 mg, Oral, Nightly sodium chloride, 10 mL, Intravenous, q12h [2] bumetanide, 2 mg/hr, Last Rate: 2 mg/hr (06/20/25 0142) * Progress Notes - Tamiko Segura MD - 06/20/2025 12:40 PM EST Images from the original note were not included. INPATIENT CARDIOLOGY (CA3) DAILY PROGRESS NOTE SUBJECTIVE Overview: Noe Caraballo is a 75 y.o. male with significant PMHx of myelofibrosis s/p splenectomy 03/2024, chronic HFrEF 30-35%, severe MR, Afib not on AC, CKD, cirrhosis requiring biweekly paracentesis who presented to [facility] on 06/17/2025 with dyspnea on exertion and abdominal pain. Last 24 hours: Episodes of SVT overnight that abort within few minutes. Patient feels hot, flushed when this happens but otherwise no complaints. Feels abd less disentended. NN 3.4L yesterday after starting bumex drip, x1 dose diuril. OBJECTIVE Vitals Visit Vitals BP 100/75 (BP Location: Right arm, Patient Position: Lying) Pulse 93 Temp 36.9 ??C (98.5 ??F) (Oral) Ht 1.6 m (5' 3 ) Wt 85.1 kg (187 lb 9.8 oz) SpO2 94% BMI 33.23 kg/m?? Intake/Output Summary (Last 24 hours) at 06/20/2025 1240 Last data filed at 06/20/2025 1105 Gross per 24 hour Intake 1166.66 ml Output 5960 ml Net -4793.34 ml Net IO Since Admission: -6,498.34 mL [06/20/25 1240] O2 Delivery Method: Nasal cannula Physical Exam: Physical Exam Constitutional: Appearance: Normal appearance. HENT: Head: Normocephalic and atraumatic. Nose: Nose normal. Mouth/Throat: Mouth: Mucous membranes are moist. Eyes: Extraocular Movements: Extraocular movements intact. Pupils: Pupils are equal, round, and reactive to light. Cardiovascular: Rate and Rhythm: Normal rate and regular rhythm. Pulses: Normal pulses. Heart sounds: Normal heart sounds. Pulmonary: Effort: Pulmonary effort is normal. Breath sounds: Normal breath sounds. Abdominal: General: There is distension. Tenderness: There is no abdominal tenderness. Genitourinary: Comments: Scrotal edema Musculoskeletal: General: Normal range of motion. Cervical back: Normal range of motion. Skin: General: Skin is warm and dry. Capillary Refill: Capillary refill takes less than 2 seconds. Coloration: Skin is not jaundiced. Comments: +3 bilateral LE pitting edema to hip Neurological: General: No focal deficit present. Mental Status: He is alert and oriented to person, place, and time. Psychiatric: Mood and Affect: Mood normal. Labs and Imaging Labs in last 18 hours CBC WBC 76.58 (H) Hb 16.7 Plt 84 (L) Hct 53.2 (H) ANC ?? INR ??, PTT ??, Anti-Xa ?? BMP Na 136 Cl 93 (L) BUN 67 (H) Glu 138 (H) K 5.1 (H) Co2 26 Cr 3.12 (H) Ca 8.6 (L) iCa ?? Mg 2.0, Phos 4.2 Lactate ?? LFT AST 56 (H) AlkPhos 399 (H) T Prot 6.3 ALK 18 Bili 1.5 (H) Alb ?? D.Bili ?? Paracentesis: 4L CXR (06/17): Atelectasis or scarring in the left midlung. Lungs are otherwise clear.. Heart and mediastinal contours are within normal limits. No pneumothorax. No pleural effusion. Bony structures are unremarkable. ASSESSMENT/PLAN Noe Caraballo is a 75 y.o. male with significant PMHx of myelofibrosis s/p splenectomy 03/2024, chronic HFrEF 30-35%, severe MR, Afib not on AC, CKD, cirrhosis requiring biweekly paracentesis who presented to [facility] on 06/17/2025 with dyspnea on exertion and abdominal pain with concern for acute on chronic HFrEF exacerbation and SBP. #Acute on chronic HFrEF (EF 30-35%) - Etiology: Suspect ICM given regional wall abnormalities on prior TTE. Current exacerbation likelysecondary to medication nonadherence as patient is unsure of which medications he is currently taking at home. - Profile: B - NYHA: III - ACC/AHA Stage: C - Home Medication(s): Spironolactone 12.5mg daily, Jardiance 10mg daily - Last TTE (10/05/24): LVEF 30-35% - Last NTproBNP: 8695 - Established with Dr. 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 iso regional wall motion abnormalities; recommended RHC w/ hepatic wedge vs CCTA for further i nvestigation - Patient continues to be volume overloaded with increasing Cr. Minimally responsive to diuresis yesterday. Continues to appear overloaded on exam. Will more aggressively dose today with IV + gtt. - Will consider starting carvedilol once euvolemic, depending on tolerance PLAN: - TTE pending - GDMT: BB: previously unable to tolerate d/t hypotension FELIPE/ARB/ARNI: previously unable to tolerate d/t hypotension MRA: currently holding d/t hyperkalemia SGLT2: holding iso RAUL - continue bumex gtt until improvement in volume status - Strict I/Os #SVT - Patient has had multiple runs of SVT since yesterday, suspect secondary to HF and overload - Mildly symptomatic during events w/ feeling hot - Will hold on beta blockade for now given acute decompensation but may benefit once volume status improves # Nonoliguric RAUL on CKD (POA) # Hyperkalemia, anion gap metabolic acidosis - Cr baseline 2-2.5, now has remained stable at 3.1 on bumex drip - Suspect secondary to volume overload vs ATN - Consulted nephrology, feel this is less likely HRS and feel reasonable to continue with diuresis if patient overloaded - Renal US showing only mild pelviectasis and patient making appropriate urine PLAN: - Diuresis as above - Strict Is&Os - BID BMP to monitor electrolytes while diuresing - Nephrology following, appreciate recs # Decompensated Cirrhosis # Ascites - Presenting with diffuse abdominal pain and distention - History of multiple hospitalizations for SBP, with most recent in May 2025. Also requires scheduled paracentesis - Last seen by GI in 09/2024: recommended prophylactic ciprofloxacin 500mg daily, but patient is nottaking - US Liver 05/20/25 showing mild coarsened hepatic echo texture suggestive of underlying chronic parenchymal disease. 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 Additionally high SAAG, but also low protein which usually does suggest some liver involvement rather than only cardiac per hepatology PLAN: - Diuresis as above - Continue cipro 500mg daily - Hepatology following, appreciate recs # Myelofibrosis s/p splenectomy 03/2024 - momelotinib dihydorchloride 200mg daily - Medication not formulary; spoke with daughter who is planning to bring #HDL - continue home rosuvastatin 10mg #Chronic Pain - continue home gabapentin 300mg TID DVT ppx: SQH Code Status: Full Code Dispo: CA3 Tamiko Segura MD Internal Medicine, PGY-1 jessica Cosigned by Viktoria Glynn MD at 06/22/2025 10:30 PM EST Associated attestation - Viktoria Glynn MD - 06/22/2025 10:30 PM EST I saw and evaluated the patient with the resident/fellow. I discussed the case with the resident/fellow and agree with the findings and plan as documented. * Care Plan - Brittany Murphy RN - 06/19/2025 11:49 PM EST Problem: Adult Inpatient Plan of Care Goal: Plan of Care Review 06/19/20252346 by Brittany Murphy RN Outcome: Ongoing, Progressing 06/19/20252346 by Brittany Murphy RN Outcome: Ongoing, Progressing Flowsheets (Taken 06/19/20251999) Progress: no change Plan of Care Reviewed With: patient Goal: Patient-Specific Goal (Individualized) 06/19/20252346 by Brittany Murphy RN Outcome: Ongoing, Progressing Flowsheets (Taken 06/19/20251999) Patient/Family-Specific Goals (Include Timeframe): Pt will be free from falls and injury today Individualized Care Needs: pt safety Anxieties, Fears or Concerns: none Goal: Absence of Hospital-Acquired Illness or Injury 06/19/20252346 by Brittany Murphy RN Outcome: Ongoing, Progressing Intervention: Identify and Manage Fall Risk Flowsheets (Taken 06/19/20251999) Safety Promotion/Fall Prevention: activity supervised assistive device/personal items within reach fall prevention program maintained room organization consistent safety round/check completed lighting adjusted mobility aid in reach nonskid shoes/slippers when out of bed clutter-free environment maintained Intervention: Prevent Skin Injury Flowsheets (Taken 06/19/20251999) Skin Protection: protective footwear used incontinence pads utilized silicone foam dressing in place Intervention: Prevent Infection Flowsheets (Taken 06/19/20251999) Infection Prevention: hand hygiene promoted rest/sleep promoted single patient room provided environmental surveillance performed equipment surfaces disinfected Goal: Optimal Comfort and Wellbeing 06/19/20252346 by Birttany Murphy RN Outcome: Ongoing, Progressing Problem: Skin Injury Risk Increased Goal: Skin Health and Integrity 06/19/20252346 by Brittany Murphy RN Outcome: Ongoing, Progressing Intervention: Optimize Skin Protection Flowsheets (Taken 06/19/20251999) Pressure Reduction Techniques: frequent weight shift encouraged heels elevated off bed pressure points protected Pressure Reduction Devices: foam padding utilized pressure-redistributing mattress utilized Skin Protection: protective footwear used incontinence pads utilized silicone foam dressing in place Intervention: Promote and Optimize Oral Intake Flowsheets (Taken 06/19/20251999) Oral Nutrition Promotion: physical activity promoted rest periods promoted Nutrition Interventions: food preferences provided Problem: Dysrhythmia Goal: Normalized Cardiac Rhythm 06/19/20252346 by Brittany Murphy RN Outcome: Ongoing, Progressing Intervention: Monitor and Manage Cardiac Rhythm Effect Flowsheets (Taken 06/19/20251999) Dysrhythmia Management: (ongoing telemetry monitoring) other (see comments) Problem: Fluid Volume Excess Goal: Fluid Balance 06/19/20252346 by Brittany Murphy RN Outcome: Ongoing, Progressing Intervention: Monitor and Manage Hypervolemia Flowsheets (Taken 06/19/20251999) Fluid/Electrolyte Management: fluids restricted Skin Protection: protective footwear used incontinence pads utilized silicone foam dressing in place Problem: Fall Injury Risk Goal: Absence of Fall and Fall-Related Injury Outcome: Ongoing, Progressing Intervention: Identify and Manage Contributors Flowsheets (Taken 06/19/20251999) Medication Review/Management: medications reviewed Self-Care Promotion: independence encouraged Intervention: Promote Injury-Free Environment Flowsheets (Taken 06/19/20251999) Safety Promotion/Fall Prevention: activity supervised assistive device/personal items within [facility] fall prevention program maintained room organization consistent safety round/check completed lighting adjusted mobility aid in [facility] nonskid shoes/slippers when out of bed clutter-free environment maintained Intervention: Provide Person-Centered Care Flowsheets (Taken 06/19/20251999) Trust Relationship/Rapport: care explained choices provided questions encouraged reassurance provided emotional support provided empathic listening provided thoughts/feelings acknowledged questions answered * Significant Event - Eliza Montgomery RN - 06/19/2025 9:55 PM EST 06/19/252154 Event/Notification Description Event Location [place] Department and Room Number 10-114 Type of Event PEWS/MEWS alert Vitals Heart Rate (!) 154 Resp 14 SpO2 97 % Onset and Notification Specifics Time MIRROR SPECIALIST RN Notified 2154 Monitoring Data For Monitoring Data, See: (MEWS of 7, Chart reviewed, primary RN contacted, discussed POC, denies need for MIRROR SPECIALIST at this time.) Rapid Response Outcome Survival Yes Rapid Response Termination Due to Patient remained on floor * Significant Event - Kenny Hernandez RN - 06/19/2025 6:27 PM EST 06/19/251822 Event/Notification Description Event Location [place] Department and Room Number 10.114 Reason for Rapid Response Team notification MEWS Is the patient a DNR? No Type of Event PEWS/MEWS alert Method of Notification PEWS/MEWS alert Vitals Heart Rate (!) 150 Resp 16 SpO2 94 % Monitoring Data Monitoring Comments MIRROR SPECIALIST notified of patient with vital signs outside established parameters on floor via MEWS alert with a score of 7. Chart reviewed, noted tachycardia into 150s with recent EKG result showing SVT. Contacted primary RN Iván who states that fellow at bedside to see patient, rhythm resolved via carotid massage. Primary RN denies need for MIRROR SPECIALIST at this time, will continue to monitor and notify MIRROR SPECIALIST and MD with acute changes or concerns. Rapid Response Outcome Survival Yes Rapid Response Termination Due to Patient remained on floor * Significant Event - Daniel Pascual MD - 06/19/2025 6:18 PM EST Images from the original note were not included. CARE PLAN NOTE Patient noted to have SVT on cardiac telemetry. Rate fixed at a proximally 151 beats per minute. Patient assessed at the bedside. Warm, well perfused. Mentating at baseline. Carotid massage performedat bedside with scientologist of sinus rhythm. EKG obtained prior to carotid massage to document SVT.Given patient's increased diuretic requirements, we will refrain from beta blockade at this time unless patient develops a recrudescence of his SVT. Update: Patient noted to have a recrudescence of his SVT. Episode again terminated with vagal maneuvers. Discussed contingency planning with overnight team. We will continue to monitor overnight. Daniel Pascual MD Special Client Bus Driver * Consults - Rasheed Mensah MBBS - 06/19/2025 12:06 PM ESTAssociated Order(s): IP CONSULT TO NEPHROLOGY [facility] Consult Note Patient: Noe Caraballo Admit Date: 06/17/2025 Date of Consult: 06/19/2025 Time of Consult: 12:30 PM Requesting Attending: Viktoria Glynn MD Reason for Consult: RAUL/ATN HPI: Noe Caraballo is a 75-year-old man with chronic kidney disease (baseline Cr ~2.1-2.3), chronic systolic heart failure with reduced ejection fraction (30- 35%), severe mitral regurgitation, recurrentascites with suspected portal hypertension, and myelofibrosis status post splenectomy, admitted on 06/17/2025 for acute decompensated heart failure with marked volume overload and worsening renal function. He presented with a 20-30 lb weight gain, progressive dyspnea, abdominal distension, and lower extremity edema despite outpatient management, requiring admission for aggressive diuresis and paracentesis. On admission, laboratory studies showed acute on chronic kidney injury with creatinine 2.9 mg/dL and BUN 66 mg/dL, hyperkalemia, metabolic acidosis, and elevated BNP, in the setting of diffuse anasarca and pulmonary congestion. A large-volume paracentesis (4 L) was performed, with ascitic fluid consistent with high-SAAG ascites and no evidence of spontaneous bacterial peritonitis. Despite symptomatic improvement and significant net negative fluid balance with IV loop diuretics, his renal function has progressively worsened, with creatinine rising to 3.07 mg/dL and declining eGFR, prompting nephrology consultation. His renal dysfunction is felt to be multifactorial, with contributions from cardiorenal physiology,ongoing aggressive diuresis, and possible hepatorenal physiology given recurrent ascites and portalhypertension. Guideline-directed heart failure therapies including spironolactone have been held due to hyperkalemia and renal dysfunction. He remains on loop diuretics with thiazide augmentation forrefractory volume overload, under strict intake/output monitoring and dietary sodium, potassium, and fluid restriction. Nephrology is consulted to assist with evaluation of RAUL on CKD, optimization of volume management, and guidance on balancing ongoing diuresis with renal perfusion and electrolytecontrol. ROS: ROS was obtained in 14 points and is negative except otherwise as noted in the HPI. History: Past Medical History[1] Problem List[2] Surgical History[3] Family History[4] Social History Socioeconomic History Marital status: Single Spouse name: Not on file Number of children: Not on file Years of education: Not on file Highest education level: Not on file Occupational History Not on file Tobacco Use Smoking status: Never Passive exposure: Never Smokeless tobacco: Never Vaping Use Vaping status: Never Used Substance and Sexual Activity Alcohol use: Never Drug use: Never Sexual activity: Not Currently Partners: Female Other Topics Concern Occupational Exposure No Social History Narrative Lives alone in [place], [place]. Single. Social Drivers of Health Food Insecurity: No Food Insecurity (06/18/2025) Hunger Vital Sign Worried About Running Out [...] Cage questionnaire guilty: 0 Cage questionnaire eye cloud systems administrator: 0 Cage Overall score: 0 Housing Stability: Unknown (06/18/2025) Housing Stability Vital Sign Unable to Pay for Housing in the Last Year: No Number of Times Moved in the Last Year: Not on file Homeless in the Last Year: No Tobacco Use: Low Risk (05/20/2025) Patient History Smoking Tobacco Use: Never Smokeless Tobacco Use: Never Passive Exposure: Never Transportation Needs: No Transportation Needs (06/18/2025) PRAPARE - Transportation Lack of Transportation (Medical): No Lack of Transportation (Non-Medical): No Depression: Not At Risk (02/05/2025) PHQ-2 PHQ-2 Score: 1 Recent Concern: Depression - Mild Depression (02/05/2025) PHQ-9 PHQ-9 Score: 8 Utilities: Not At Risk (06/18/2025) [facility] Utilities Threatened with loss of utilities: No Stress: Not on file Intimate Partner Violence: Not At Risk (06/18/2025) Humiliation, Afraid, Rape, and Kick questionnaire Fear of Current or Ex-Partner: No Emotionally Abused: No Physically Abused: No Sexually Abused: No Physical Activity: Inactive (10/16/2022) Exercise Vital Sign Days of Exercise per Week: 0 days Minutes of Exercise per Session: 0 min Social Connections: Unknown (04/08/2023) Received from [facility] Family and Community Support Help with Day-to-Day Activities: Not on file Lonely or Isolated: Not on file Financial Resource Strain: Low Risk (03/20/2024) Overall Financial Resource Strain (CARDIA) Difficulty of Paying Living Expenses: Not hard at all Allergies[5] Medications: Home Medications: Current Medications[6] Current Medications: Current Scheduled Medications[7] Current Continuous Medications[8] Physical Exam: Visit Vitals BP 111/64 (BP Location: Right arm, Patient Position: Lying) Pulse 77 Temp 36.6 ??C (97.8 ??F) (Oral) Resp 13 Ht 1.6 m (5' 3 ) Wt 88.1 kg (194 lb 3.6 oz) SpO2 94% BMI 34.41 kg/m?? Smoking Status Never BSA 1.98 m?? Gen: Sitting up in bed; awake, alert, NAD CV: Regular rhythm, Normal S1/S2 Pulm: Clear to auscultation, normal respiratory effort Abd: Soft, non-tender, non-distended. Active BS. Ext: 2+ edema Neuro: Alert and oriented. Moving all extremities Laboratory: CBC: Results from last 7 days Lab Units 06/19/25 04406/18/25 03306/17/25 1716 WBC 10*3/uL 63.85* 49.67* 55.94* HEMOGLOBIN g/dL 16.0 15.5 15.1 HEMATOCRIT % 51.3* 51.2* 49.3 PLATELETS 10*3/uL 83* 76* 71* CMP: Results from last 7 days Lab Units 06/19/25 0441 06/18/25 1721 06/18/25 0336 06/17/25 1716 SODIUM mmol/L 134* 134* 135* 131* POTASSIUM mmol/L 5.3* 5.6* 5.4* 5.1* CHLORIDE mmol/L 96* 97 97 97 CO2 mmol/L 19* 21* 17* 21* BUN mg/dL 68* 68* 65* 66* CREATININE mg/dL 3.07* 3.06* 2.89* 2.90* CALCIUM mg/dL 8.8* 8.7* 8.7* 8.7* BILIRUBIN TOTAL mg/dL 1.4* -- -- 2.2* ALKALINE PHOSPHATASE U/L 362* -- -- 360* ALT U/L 17 -- -- 18 AST U/L 62* -- -- 54* GLUCOSE mg/dL 78 98 65* 90 Impression & Plan: Noe Caraballo is a 75 y.o. male with significant PMHx of myelofibrosis s/p splenectomy 03/2024, chronic HFrEF 30-35%, severe MR, Afib not on AC, CKD, cirrhosis requiring biweekly paracentesis who presented to [facility] on 06/17/2025 with dyspnea on exertion and abdominal pain with concern for acute on chronic HFrEF exacerbation and SBP Nephrology consulted due to worsening renal function Assessment: Non-oliguric RAUL/ATN on CKD (baseline Scr ~2-2.5) with peak Scr 3.0 Etiology less likely HRS in the setting of elevated Urine Na along with non- oliguric status of patient Other etiologies include volume depletion with a component of decreased EABV vs possible infectiousprocess/malignancy in the setting of severely elevated white count vs chemo induced. This could also be patient's new baseline Scr from worsening CKD Acute mild hyperkalemia AGMA Decompensated Cirrhosis Acute on chronic HFrEF (EF 30-35%) Recommendations and Plan: - Consider Holding SGLT2 in the setting of ongoing RAUL - Recommend lokelma 10 g daily - Okay with intermittent diuretics per primary team if concerns for volume overload - Renal function reduced however no acute indication for MIRROR SPECIALIST at the moment - Hold nephrotoxic agents and avoid IV contrast - Strict I/O and daily weights - Obtain renal ultrasound to r/o stone, tumor, obstruction Please call or page with any questions. Nephrology will continue to follow. Rasheed Mensah, PGY5 Nephrology/Critical Care [1] Past Medical History: Diagnosis Date ACC/AHA [...] bacterial peritonitis 06/04/2024 On ppx Cipro [2] Patient Active Problem List Diagnosis Other cirrhosis of liver (CMS/HCC) Chronic prescription opiate use Major laceration of spleen Myeloproliferative disorder (CMS/HCC) Thrombocytopenia, unspecified (CMS/HCC) Gastro-esophageal reflux disease without esophagitis Chronic back pain Paroxysmal atrial fibrillation (CMS/HCC) Class 1 obesity in adult Ascites Spontaneous bacterial peritonitis Spondylosis without myelopathy or radiculopathy, lumbar region Lumbosacral radiculopathy Generalized weakness ACC/AHA stage C chronic systolic heart failure Coronary artery disease involving quinault coronary artery of quinault heart without angina pectoris Mixed dyslipidemia Chronic kidney disease, stage 4 (severe) (CMS/HCC) Chronic pulmonary edema Edema, unspecified Mild cognitive impairment Nonrheumatic mitral (valve) insufficiency SBP (spontaneous bacterial peritonitis) Heart failure [3] Past Surgical History: Procedure Laterality Date PARACENTESIS biweekly via IR SPLENECTOMY [4] Family History Problem Relation Name Age of Onset No Known Problems Mother No Known Problems Father No Known Problems Daughter [5] No Known Allergies [6] Current Facility-Administered Medications: acetaminophen (Tylenol) tablet 500 mg, 500 mg, Oral, q8h PRN, Viktoria Glynn MD, 500 mg at 06/18/25 0728 ciprofloxacin (Cipro) tablet 500 mg, 500 mg, Oral, Daily, Tamiko Segura MD, 500 mg at 06/19/25 0843 empagliflozin (Jardiance) tablet 10 mg, 10 mg, Oral, Daily, Tamiko Segura MD, 10 mg at 843 ferrous sulfate EC tablet 324 mg, 324 mg, Oral, Daily with breakfast, Binta Leos MD, 324 mg at 06/19/25 0843 gabapentin (Neurontin) capsule 300 mg, 300 mg, Oral, TID, Binta Leos MD, 300 mg at 06/19/25 0843 heparin (porcine) injection 5,000 Units, 5,000 Units, Subcutaneous, q8h YANIQUE, Nica Joshi DO, 5,000 Units at 06/19/25 0628 HYDROcodone-acetaminophen (Juncos) 5-325 MG per tablet 10 mg of hydrocodone, 10 mg of hydrocodone, Oral, q6h PRN, Binta Leos MD, 10 mg of hydrocodone at 06/19/25 0843 melatonin tablet 3 mg, 3 mg, Oral, Nightly PRN, Madelyn Nica A, DO nystatin (Mycostatin) 324239 UNIT/GM powder 1 Application, 1 Application, Topical, BID, Tamiko Segura MD, 1 Application at 06/18/25 1510 ondansetron ODT (Zofran-ODT) disintegrating tablet 4 mg, 4 mg, Oral, q6h PRN OR ondansetron (Zofran) injection 4 mg, 4 mg, Intravenous, q6h PRN OR ondansetron (Zofran) 4 MG/5ML solution 4 mg,4 mg, Oral, q6h PRN, Viktoria Glynn MD polyethylene glycol (Miralax) packet 17 g, 17 g, Oral, Daily, Viktoria Glynn MD, 17 g at 06/19/25 0843 rosuvastatin (Crestor) tablet 10 mg, 10 mg, Oral, Nightly, Binta Leos MD, 10 mg at 06/18/252120 Insert peripheral IV, , , Once AND Saline lock IV, , , Once AND sodium chloride 0.9 % flush10 mL, 10 mL, Intravenous, q12h, 10 mL at 06/19/25 0441 AND sodium chloride 0.9 % flush 10 mL, 10 mL, Intravenous, PRN, Viktoria Glynn MD, 10 mL at 06/18/25 1044 white petrolatum (VASELINE) gel, , Topical, PRN, Tamiko Segura MD Current Outpatient Medications: bismuth subsalicylate (Pepto Bismol) 262 MG chewable tablet, Chew 1 tablet as needed for indigestion., Disp: , Rfl: empagliflozin (Jardiance) 10 MG, Take 1 tablet by mouth daily., Disp: 30 tablet, Rfl: 3 ferrous sulfate 324 (65 Fe) MG EC tablet, TAKE 1 TABLET BY MOUTH EVERY MORNING WITH BREAKFAST. DO NOT CHEW,CRUSH, OR SPLIT, Disp: , Rfl: gabapentin (Neurontin) 800 MG tablet, Take 1 tablet by mouth 4 times a day., Disp: , Rfl: HYDROcodone-acetaminophen (Juncos) 10-325 MG tablet, Take 1 tablet by mouth 4 times a day as needed., Disp: , Rfl: Momelotinib Dihydrochloride 200 MG tablet, Take 200 mg by mouth daily., Disp: 30 tablet, Rfl: 1 rosuvastatin (Crestor) 10 MG tablet, Take 1 tablet by mouth nightly., Disp: 90 tablet, Rfl: 3 naloxone (Narcan) 4 mg/0.1 mL nasal spray, 1. Give 1 spray in nostril for no/slow breathing or cannot wake after opioid use 2. Call 911 3. Repeat in other nostril if symptoms continue, Disp: 1 each, Rfl: 0 [7] ciprofloxacin, 500 mg, Oral, Daily empagliflozin, 10 mg, Oral, Daily ferrous sulfate, 324 mg, Oral, Daily with breakfast gabapentin, 300 mg, Oral, TID heparin (porcine), 5,000 Units, Subcutaneous, q8h YANIQUE nystatin, 1 Application, Topical, BID polyethylene glycol, 17 g, Oral, Daily rosuvastatin, 10 mg, Oral, Nightly sodium chloride, 10 mL, Intravenous, q12h [8] Cosigned by Darryn Naidu MD at 06/19/2025 2:06 PM EST Associated attestation - Darryn Naidu MD - 06/19/2025 2:06 PM EST I saw and evaluated the patient. I discussed the case with the resident/fellow and agree with the findings and plan as documented. * Progress Notes - Tamiko Segura MD - 06/19/2025 11:42 AM EST Images from the original note were not included. INPATIENT CARDIOLOGY ([facility]) DAILY PROGRESS NOTE SUBJECTIVE Overview: Noe Caraballo is a 75 y.o. male with significant PMHx of myelofibrosis s/p splenectomy 03/2024, chronic HFrEF 30-35%, severe MR, Afib not on AC, CKD, cirrhosis requiring biweekly paracentesis who presented to [facility] on 06/17/2025 with dyspnea on exertion and abdominal pain. Last 24 hours: Received total of 6mg IV bumex and 2mg PO bumex yesterday in addition to 10mg metolazone with minimal output. Cr uptrending. Consulting nephrology today to discuss further need for diuresis vs fluid replacement. OBJECTIVE Vitals Visit Vitals BP 111/64 (BP Location: Right arm, Patient Position: Lying) Pulse 77 Temp 36.6 ??C (97.8 ??F) (Oral) Ht 1.6 m (5' 3 ) Wt 88.1 kg (194 lb 3.6 oz) SpO2 94% BMI 34.41 kg/m?? Intake/Output Summary (Last 24 hours) at 06/19/2025 1142 Last data filed at 06/19/2025 0800 Gross per 24 hour Intake 330 ml Output 1285 ml Net -955 ml Net IO Since Admission: -1,705 mL [06/19/25 1142] Physical Exam: Physical Exam Constitutional: Appearance: Normal appearance. HENT: Head: Normocephalic and atraumatic. Nose: Nose normal. Mouth/Throat: Mouth: Mucous membranes are moist. Eyes: Extraocular Movements: Extraocular movements intact. Pupils: Pupils are equal, round, and reactive to light. Cardiovascular: Rate and Rhythm: Normal rate and regular rhythm. Pulses: Normal pulses. Heart sounds: Normal heart sounds. Pulmonary: Effort: Pulmonary effort is normal. Breath sounds: Normal breath sounds. Abdominal: General: There is distension. Tenderness: There is abdominal tenderness (mostly in lower quadrants). Genitourinary: Comments: Scrotal edema Musculoskeletal: General: Normal range of motion. Cervical back: Normal range of motion. Skin: General: Skin is warm and dry. Capillary Refill: Capillary refill takes less than 2 seconds. Coloration: Skin is not jaundiced. Comments: +3 bilateral LE pitting edema to hip Neurological: General: No focal deficit present. Mental Status: He is alert and oriented to person, place, and time. Psychiatric: Mood and Affect: Mood normal. Labs and Imaging Labs in last 18 hours CBC WBC 63.85 (H) Hb 16.0 Plt 83 (L) Hct 51.3 (H) ANC ?? INR ??, PTT ??, Anti-Xa ?? BMP Na 134 (L) Cl 96 (L) BUN 68 (H) Glu 78 K 5.3 (H) Co2 19 (L) Cr 3.07 (H) Ca 8.8 (L) iCa ?? Mg 2.1, Phos 5.2 (H) Lactate ?? LFT AST 62 (H) AlkPhos 362 (H) T Prot 6.3 ALK 17 Bili 1.4 (H) Alb ?? D.Bili ?? Paracentesis: 4L CXR (06/17): Atelectasis or scarring in the left midlung. Lungs are otherwise clear.. Heart and mediastinal contours are within normal limits. No pneumothorax. No pleural effusion. Bony structures are unremarkable. ASSESSMENT/PLAN Noe Caraballo is a 75 y.o. male with significant PMHx of myelofibrosis s/p splenectomy 03/2024, chronic HFrEF 30-35%, severe MR, Afib not on AC, CKD, cirrhosis requiring biweekly paracentesis who presented to [facility] on 06/17/2025 with dyspnea on exertion and abdominal pain with concern for acute on chronic HFrEF exacerbation and SBP. #Acute on chronic HFrEF (EF 30-35%) - Etiology: Suspect ICM given regional wall abnormalities on prior TTE. Current exacerbation likelysecondary to medication nonadherence as patient is unsure of which medications he is currently taking at home. - Profile: B - NYHA: III - ACC/AHA Stage: C - Home Medication(s): Spironolactone 12.5mg daily, Jardiance 10mg daily - Last TTE (10/05/24): LVEF 30-35% - Last NTproBNP: 8695 - Established with Dr. 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 iso regional wall motion abnormalities; recommended RHC w/ hepatic wedge vs CCTA for further i nvestigation - Patient continues to be volume overloaded with increasing Cr. Minimally responsive to diuresis yesterday. Continues to appear overloaded on exam. Will more aggressively dose today with IV + gtt. - Will consider starting carvedilol once euvolemic, depending on tolerance PLAN: - TTE pending - GDMT: BB: previously unable to tolerate d/t hypotension FELIPE/ARB/ARNI: previously unable to tolerate d/t hypotension MRA: currently holding d/t hyperkalemia SGLT2: holding iso RAUL - Bumex 2mg IV followed by bumex gtt @ 2mg/hr + IV diuril - may require inotrope support if nonresponsive - Strict I/Os # Nonoliguric RAUL on CKD (POA) # Hyperkalemia, anion gap metabolic acidosis - Cr baseline 2-2.5, worsening today despite some diuresis yesterday - Unclear if cardiorenal vs intravascular depletion - Consulted nephrology, feel this is less likely HRS and feel reasonable to continue with diuresis if patient overloaded PLAN: - Renal US pending - Lokelma 10g daily - Diuresis as above - Strict Is&Os - BID BMP to monitor electrolytes while diuresing # Decompensated Cirrhosis # Ascites - Presenting with diffuse abdominal pain and distention - History of multiple hospitalizations for SBP, with most recent in May 2025. Also requires scheduled paracentesis - Last seen by GI in 09/2024: recommended prophylactic ciprofloxacin 500mg daily, but patient is nottaking - US Liver 05/20/25 showing mild coarsened hepatic echo texture suggestive of underlying chronic parenchymal disease. 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 Additionally high SAAG, but also low protein which usually does suggest some liver involvement rather than only cardiac per hepatology PLAN: - Diuresis as above - Continue cipro 500mg daily - Hepatology following, appreciate recs # Myelofibrosis s/p splenectomy 03/2024 - momelotinib dihydorchloride 200mg daily - Medication not formulary; spoke with daughter who is planning to bring #HDL - continue home rosuvastatin 10mg #Chronic Pain - continue home gabapentin 300mg TID DVT ppx: SQH Code Status: Full Code Dispo: CA3 Tamiko Segura MD Internal Medicine, PGY-1 jessica Cosigned by Viktoria Glynn MD at 06/22/2025 10:30 PM EST Associated attestation - Viktoria Glynn MD - 06/22/2025 10:30 PM EST I saw and evaluated the patient with the resident/fellow. I discussed the case with the resident/fellow and agree with the findings and plan as documented. * Consults - Kun Mcgrath MD - 06/18/2025 6:17 PM ESTAssociated Order(s): Inpatient consult to gastroenterology Images from the original note were not included. Inpatient Hepatology Initial Consultation Note: Patient: Noe Caraballo Date of : 1950 Room: 210/210 Inpatient consult to gastroenterology Consult performed by: Kun Mcgrath MD Consult ordered by: Viktoria Glynn MD Reason for consult: concern of HRS contributing to raul in HF and cirrhotic patient Subjective Noe Caraballo is a 75 y.o. male with myelofibrosis s/p splenectomy 03/2024, chronic HFrEF 30-35%,severe MR, Afib not on AC, CKD, ?Cirrhosis? ascites gets outpatient paracentesis who presented to [facility] on 06/17/2025 with dyspnea on exertion found to have increased weight by 20 lbs since discharge inNovember. He has been experiencing increased shortness of breath and lower extremity edema during this time. Reports diffuse itching and has excoriations. Some phlegm/coughing/spit up without emesis.He reports first being told about liver disease months ago. He denies fevers, chills, chest pain. Denies tattoos, smoking, drug use. He reports when he was young he did drink alcohol (rare social use, denies daily drinking). Denies melena, hematemesis, hematochezia, change in mental status, jaundice. He was told he had liver issues a few months back. Not sure who told him or what caused. It. Goes for paracentesis regularly, doesn't know when last one was. Done one here. Patient was seen by Dr Barber in clinic in July 2024 it is noted then: The patient had massive splenomegaly complicated by hemorrhage and now splenectomy. During ex lap in March 2024, noted to have nodular liver concerning for cirrhosis. Since splenectomy, patient has been dealing with ascites on evaluation has had borderline protein that is sometimes above/below 2.5, had high SAAG on one assessment. Review of Systems 10-point review of systems was negative, except as per HPI. Past Medical History[1] Surgical History[2] Family History[3] Social History[4] Allergies[5] Current Medications[6] Objective Temp: [36.3 ??C (97.4 ??F)-36.5 ??C (97.7 ??F)] 36.3 ??C (97.4 ??F) Heart Rate: [71-148] 80 Resp: [12-24] 16 BP: (100-112)/(63-78) 111/75 Weight: 98.6 kg (217 lb 6 oz) Body mass index is 38.78 kg/m??. Physical Examination: General: not in acute distress, age appropriate. HEENT: Normocephalic and atraumatic; no conjunctival injection, no scleral icterus. Neck supple. Lungs: non-labored respirations Heart: normal rate, regular rhythm Extremities: 3+ LE edema bilaterally; some spots on skin with excoriations from itching. GI: soft, non-distended; non-tender in all 4 quadrants; large midline scar Skin: warm and dry; no lesions/rashes on exposed skin; no jaundice Results: CBC: Results from last 7 days Lab Units 06/18/25 0336 06/17/25 1716 WBC 10*3/uL 49.67* 55.94* HEMOGLOBIN g/dL 15.5 15.1 HEMATOCRIT % 51.2* 49.3 PLATELETS 10*3/uL 76* 71* CMP: Results from last 7 days Lab Units 06/18/25 1721 06/18/25 0336 06/17/25 1716 SODIUM mmol/L 134* 135* 131* POTASSIUM mmol/L 5.6* 5.4* 5.1* CHLORIDE mmol/L 97 97 97 CO2 mmol/L 21* 17* 21* BUN mg/dL 68* 65* 66* CREATININE mg/dL 3.06* 2.89* 2.90* CALCIUM mg/dL 8.7* 8.7* 8.7* BILIRUBIN TOTAL mg/dL -- -- 2.2* ALKALINE PHOSPHATASE U/L -- -- 360* ALT U/L -- -- 18 AST U/L -- -- 54* GLUCOSE mg/dL 98 65* 90 MELD 3.0: 19 at 05/23/2025 8:23 AM MELD-Na: 19 at 05/23/2025 8:23 AM Calculated from: Serum Creatinine: 2.18 mg/dL at 05/23/2025 8:23 AM Serum Sodium: 136 mmol/L at 05/23/2025 8:23 AM Total Bilirubin: 1.2 mg/dL at 05/21/2025 4:56 AM Serum Albumin: 3.4 g/dL at 05/21/2025 4:56 AM INR(ratio): 1.3 at 05/21/2025 4:56 AM Age at listing (hypothetical): 75 years Sex: Male at 05/23/2025 8:23 AM Imaging: US Abd Doppler: Portal vein: There is antegrade flow within the main portal vein with a velocity of 17 cm/sec. Hepatic veins: The imaged right and left hepatic veins are patent. IMPRESSION: Patent imaged portal vein. US Liver: Hepatic parenchyma is mildly coarsened in echotexture. Hepatic surface is smooth. No discrete mass in the visible portions of the liver. The gallbladder is contracted containing small stones. Other: There is small volume ascites. IMPRESSION: Mild coarsened hepatic echotexture suggestive of some degree of underlying chronic parenchymal disease. Cholelithiasis. Ascites. CT AP 03/2024: Unremarkable liver and gallbladder. Assessment/Plan Noe Caraballo is a 75 y.o. male with significant PMHx as above who presented to [facility] on 06/17/2025 with concern for acute HFrEF exacerbation. #Previously documented cirrhosis (diagnosis unclear) #Coarsened hepatic echo texture on US #Ascites with hx of SBP #RAUL - It appears that this patient has some underlying level of liver disease as evidenced by coarsenedhepatic echotexture on the ultrasound. That said smooth hepatic surface is suggestive of non cirrhotic changes (though this is not diagnostic). That said patient has ascites with high sag low proteinwhich is often secondary to liver disease. Thus this picture is cloudy. Patient has a known CHF andknown CKD thus it is likely that he needs diuresis over supplementing albumin as we typically wouldfor someone with HRS. - Para 06/18/25: PMN not c/w SBP, high SAAG (consistent with portal hypertension which could be 2/2HF), but also low protein 1.5 which usually does suggest liver involvement rather than only cardiac. - 2023 liver work up was unremarkable - US here with suggesting of hepatic disease but smooth surface suggesting against acutal cirrhosis RECOMMENDATIONS: - I think that it is reasonable to continue with diuresis per the primary team given volume overload - It is not unreasonable, if Cr continues to raise, consider nephrology consultation - given CHF/EF - he likely would be able to tolerate albumin dose of SBP protocol. Hold off on albumin for now. Monitor creatinine with diuresis per primary team. - Likely would not tolerate spironolactone given high K, if at later time that is improved, may benefit from this for HFrEF and ascites - MAP is already >75 thus there is likely is less benefit than risk when considering addition ofMidodrine as this also can worsen HF Discussed with Dr. Groves, Hepatology attending. Thank you for involving us in the care of this patient. Kun Mcgrath MD Gastroenterology and Hepatology PGY-4 Personal Pager: [phone] This record may have been prepared using assistance such as: - Re[employer] or [employer] voice recognition software. Asa result, errors may occur in the text. When identified, these enrollment manager errors have been corrected. While every attempt is made to correct errors during dictation, errors may still exist. Pleasereach out with any questions. [1] Past Medical History: Diagnosis Date ACC/AHA [...] Problems Father No Known Problems Daughter [4] Social History Tobacco Use Smoking status: Never Passive exposure: Never Smokeless tobacco: Never Vaping Use Vaping status: Never Used Substance Use Topics Alcohol use: Never Drug use: Never [5] No Known Allergies [6] Current Facility-Administered Medications: acetaminophen (Tylenol) tablet 500 mg, 500 mg, Oral, q8h PRN, Viktoria Glynn MD, 500 mg at 06/18/25 0728 ciprofloxacin (Cipro) tablet 500 mg, 500 mg, Oral, Daily, AbsTamiko davenport MD, 500 mg at 06/18/25 1346 empagliflozin (Jardiance) tablet 10 mg, 10 mg, Oral, Daily, Tamiko Segura MD, 10 mg at 044 ferrous sulfate EC tablet 324 mg, 324 mg, Oral, Daily with breakfast, Binta Leos MD, 324 mg at 06/18/25 0720 gabapentin (Neurontin) capsule 300 mg, 300 mg, Oral, TID, Binta Leos MD, 300 mg at 06/18/25 1707 heparin (porcine) injection 5,000 Units, 5,000 Units, Subcutaneous, q8h YANIQUE, Nica Joshi DO, 5,000 Units at 06/18/25 1511 HYDROcodone-acetaminophen (Juncos) 5-325 MG per tablet 10 mg of hydrocodone, 10 mg of hydrocodone, Oral, q6h PRN, Binta Leos MD, 10 mg of hydrocodone at 06/18/25 1509 melatonin tablet 3 mg, 3 mg, Oral, Nightly PRN, Nica Joshi, DO nystatin (Mycostatin) [id number] UNIT/GM powder 1 Application, 1 Application, Topical, BID, Tamiko Segura MD, 1 Application at 06/18/25 1510 ondansetron ODT (Zofran-ODT) disintegrating tablet 4 mg, 4 mg, Oral, q6h PRN OR ondansetron (Zofran) injection 4 mg, 4 mg, Intravenous, q6h PRN OR ondansetron (Zofran) 4 MG/5ML solution 4 mg,4 mg, Oral, q6h PRN, Viktoria Glynn MD polyethylene glycol (Miralax) packet 17 g, 17 g, Oral, Daily, Viktoria Glynn MD, 17 g at 06/18/25 0130 rosuvastatin (Crestor) tablet 10 mg, 10 mg, Oral, Nightly, Binta Leos MD, 10 mg at 06/18/25 0129 Insert peripheral IV, , , Once AND Saline lock IV, , , Once AND sodium chloride 0.9 % flush10 mL, 10 mL, Intravenous, q12h, 10 mL at 06/18/25 1045 AND sodium chloride 0.9 % flush 10 mL, 10 mL, Intravenous, PRN, Viktoria Glynn MD, 10 mL at 06/18/25 1044 white petrolatum (VASELINE) gel, , Topical, PRN, Tamiko Segura MD Current Outpatient Medications: bismuth subsalicylate (Pepto Bismol) 262 MG chewable tablet, Chew 1 tablet as needed for indigestion., Disp: , Rfl: empagliflozin (Jardiance) 10 MG, Take 1 tablet by mouth daily., Disp: 30 tablet, Rfl: 3 ferrous sulfate 324 (65 Fe) MG EC tablet, TAKE 1 TABLET BY MOUTH EVERY MORNING WITH BREAKFAST. DO NOT CHEW,CRUSH, OR SPLIT, Disp: , Rfl: gabapentin (Neurontin) 800 MG tablet, Take 1 tablet by mouth 4 times a day., Disp: , Rfl: HYDROcodone-acetaminophen (Juncos) 10-325 MG tablet, Take 1 tablet by mouth 4 times a day as needed., Disp: , Rfl: Momelotinib Dihydrochloride 200 MG tablet, Take 200 mg by mouth daily., Disp: 30 tablet, Rfl: 1 rosuvastatin (Crestor) 10 MG tablet, Take 1 tablet by mouth nightly., Disp: 90 tablet, Rfl: 3 naloxone (Narcan) 4 mg/0.1 mL nasal spray, 1. Give 1 spray in nostril for no/slow breathing or cannot wake after opioid use 2. Call 911 3. Repeat in other nostril if symptoms continue, Disp: 1 each, Rfl: 0 Cosigned by Deb Groves MD at 06/18/2025 8:24 PM EST Associated attestation - Deb Groves MD - 06/18/2025 8:24 PM EST I saw and evaluated the patient with the resident/fellow. I discussed the case with the resident/fellow and agree with the findings and plan as documented. * Progress Notes - Miguel A Mayo - 06/18/2025 2:45 PM EST Case Management Adult Progress Note Noe Caraballo 75 y.o. male CSN: [id number] Admission: 06/17/2025 4:17 PM Primary Problem: Heart failure Anticipated Discharge Date: TBD Additional Comments GRANT SHERIDAN spoke with Pts daughter Xin Caraballo by phone. Pts daughter stated she was in agreement for him to be discharged home with her (when he is ready) and she would assist him (instead subacute rehab). She could provide 24hr assist. Pts daughter stated she lives in [place]. GRANT SHERIDAN to continue to follow for discharge planning needs. Miguel A Mayo * Progress Notes - Miguel A Mayo - 06/18/2025 11:10 AM EST Case Management Adult Initial Progress Note Noe Caraballo 75 y.o. male CSN: [id number] Admission: 06/17/2025 4:17 PM Primary Problem: Heart failure Hadoop Architect reviewed chart as Pt recenty discharged to complete this Initial Case Management Assessment. PCP: Debbie Medina MD Emergency Contact: Extended Emergency Contact Information Primary Emergency Contact: XIN CARABALLO Mobile Relation: Daughter Preferred language: Burkinan Exceptional Children Teacher needed? No Secondary Emergency Contact: Jaclyn Cárdenas Mobile Relation: Friend Exceptional Children Teacher needed? No Insurance: Primary Visit Coverage Payer Plan Sponsor Code Group Number Group Name MEDICARE MEDICARE PART B ONLY -- -- -- Primary Visit Coverage Subscriber Subscriber ID Subscriber Name Subscriber [facility] Subscriber Address [id number] NOE CARABALLO [id number] [place] [address] Secondary Visit Coverage Payer Plan Sponsor Code Group Number Group Name [facility] -- -- -- Secondary Visit Coverage Subscriber Subscriber ID Subscriber Name Subscriber SSN Subscriber Address [id number] Noe Caraballo [id number] [address] [place] [address] Patient information: Primary Caregiver: Self Support System: Immediate family, Other (Comment) (also has some assist from a paid caretaker resort) Daily Living Activities: Functional Status: Minimum assistance Living Arrangements: Alone Type of Residence: Private residence (apartment) [address] [facility] [id number] Current DME: Equipment Currently Used at Home: walker, rolling, shower chair Income Information: Income Source: Retired Income/Expense Information: Income meets expenses Current Resources Utilized: None Housing Circumstances-Z Codes: Housing Circumstances (select all that apply): None Applicable Patient Referred to: Anticipated Discharge Date: TBD Patient's Discharge Goal: home Assistance Available at Discharge: family Discharge Transport: Follow Up Transport: Home Health / Home Infusion / Outpatient Dialysis Services: Living Will/Advance Directive/Power of Office Director /Guardian: Additional Comments: [facility] [address]: [address] [place] Has a rolling walker and shower chair at home. Recently began having the assist of a paid carer for minimum assistance in the home. Family can transport upon discharge. No SDOH needs/concerns. Miguel A Mayo * Progress Notes - Tamiko Segura MD - 06/18/2025 10:55 AM EST Images from the original note were not included. INPATIENT CARDIOLOGY (CA3) DAILY PROGRESS NOTE SUBJECTIVE Overview: Noe Caraballo is a 75 y.o. male with significant PMHx of myelofibrosis s/p splenectomy 03/2024, chronic HFrEF 30-35%, severe MR, Afib not on AC, CKD, cirrhosis requiring biweekly paracentesis who presented to [facility] on 06/17/2025 with dyspnea on exertion and abdominal pain. Last 24 hours: After diuresis and paracentesis, Mr. Caraballo endorses improved work of breathing, with some improvement in abdominal pain. He continues to deny chest pain, nausea, vomiting, or fevers. He endorses taking Jardiance and bumex at home, but is unsure if he has been taking spironolactone. Still has lower extremity edema requiring additional diuresis. OBJECTIVE Vitals Visit Vitals BP 106/69 Pulse 78 Temp 36.3 ??C (97.4 ??F) (Oral) Ht 1.6 m (5' 3 ) Wt 98.6 kg (217 lb 6 oz) SpO2 92% BMI 38.51 kg/m?? Intake/Output Summary (Last 24 hours) at 06/18/2025 1056 Last data filed at 06/18/2025 0600 Gross per 24 hour Intake -- Output 750 ml Net -750 ml Net IO Since Admission: -750 mL [06/18/25 1056] Physical Exam: Physical Exam Constitutional: Appearance: Normal appearance. HENT: Head: Normocephalic and atraumatic. Nose: Nose normal. Mouth/Throat: Mouth: Mucous membranes are moist. Eyes: Extraocular Movements: Extraocular movements intact. Pupils: Pupils are equal, round, and reactive to light. Cardiovascular: Rate and Rhythm: Normal rate and regular rhythm. Pulses: Normal pulses. Heart sounds: Normal heart sounds. Pulmonary: Effort: Pulmonary effort is normal. Breath sounds: Normal breath sounds. Abdominal: General: There is distension. Tenderness: There is abdominal tenderness (mostly in lower quadrants). Comments: Tenderness to palpation, not localized to quadrant Musculoskeletal: General: Normal range of motion. Cervical back: Normal range of motion. Skin: General: Skin is warm and dry. Capillary Refill: Capillary refill takes less than 2 seconds. Coloration: Skin is not jaundiced. Comments: +3 bilateral LE pitting edema to hip Neurological: General: No focal deficit present. Mental Status: He is alert and oriented to person, place, and time. Psychiatric: Mood and Affect: Mood normal. Labs and Imaging Labs in last 18 hours CBC WBC 49.67 (H) Hb 15.5 Plt 76 (L) Hct 51.2 (H) ANC 48.11 (H) INR ??, PTT ??, Anti-Xa ?? BMP Na 135 (L) Cl 97 BUN 65 (H) Glu 65 (L) K 5.4 (H) Co2 17 (L) Cr 2.89 (H) Ca 8.7 (L) iCa ?? Mg 2.3, Phos 5.7 (H) Lactate ?? LFT AST 54 (H) AlkPhos 360 (H) T Prot 6.8 ALK 18 Bili 2.2 (H) Alb ?? D.Bili ?? Paracentesis: 4L CXR (06/17): Atelectasis or scarring in the left midlung. Lungs are otherwise clear.. Heart and mediastinal contours are within normal limits. No pneumothorax. No pleural effusion. Bony structures are unremarkable. ASSESSMENT/PLAN Noe Caraballo is a 75 y.o. male with significant PMHx of myelofibrosis s/p splenectomy 03/2024, chronic HFrEF 30-35%, severe MR, Afib not on AC, CKD, cirrhosis requiring biweekly paracentesis who presented to [facility] on 06/17/2025 with dyspnea on exertion and abdominal pain with concern for acute on chronic HFrEF exacerbation and SBP. #Acute on chronic HFrEF (EF 30-35%) - Etiology: Suspect ICM given regional wall abnormalities on prior TTE. Current exacerbation likelysecondary to medication nonadherence as patient is unsure of which medications he is currently taking at home. - Profile: B - NYHA: III - ACC/AHA Stage: C - Home Medication(s): Spironolactone 12.5mg daily, Jardiance 10mg daily - Last TTE (10/05/24): LVEF 30-35% - Last NTproBNP: 8695 - Establish with Dr. 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 iso regional wall motion abnormalities; recommended RHC w/ hepatic wedge vs CCTA for further inv estigation - Patient continues to be volume overloaded following bumex 2mg IV - Will consider starting carvedilol once euvolemic, depending on tolerance PLAN: - GDMT: BB: previously unable to tolerate d/t hypotension FELIPE/ARB/ARNI: previously unable to tolerate d/t hypotension MRA: currently holding d/t hyperkalemia SGLT2: resumed Jardiance 10 mg daily - Bumex 2mg IV, redose as indicated for goal NN 2-3L - Strict I/Os # Decompensated Cirrhosis - Presenting with diffuse abdominal pain and distention - History of multiple hospitalizations for SBP, with most recent in May 2025. Also requires scheduled paracentesis - Last seen by GI in 09/2024: recommended prophylactic ciprofloxacin 500mg daily, but patient is nottaking - US Liver 05/20/25 showing mild coarsened hepatic echo texture suggestive of underlying chronic parenchymal disease. - Prior ex lap showing nodular liver, EGD 07/2024 showing single varix and portal hypertensive gastropathy - Paracentesis showing >500 nucleated cells but < 250 PMNs so, will restart SBP ppx PLAN: - Diuresis as above - Restart cipro 500mg daily - [facility]ed hepatology[facility] # Myelofibrosis s/p splenectomy 03/2024 - momelotinib dihydorchloride 200mg daily - Medication not formulary; spoke with daughter who is planning to bring #HDL - continue home rosuvastatin 10mg #Chronic Pain - continue home gabapentin 300mg TID DVT ppx: heparin Code Status: Full Code Dispo: pending Margie Britt MS3 I was physically present and evaluated the patient with the medical student. I discussed the case with the medical student and agree with the findings and plan as documented. Edits were made to the documentation as appropriate. I personally performed the Exam and Medical Decision Making. Tamiko Segura MD Internal Medicine, PGY-1 jessica Cosigned by Viktoria Glynn MD at 06/18/2025 4:29 PM EST Associated attestation - Viktoria Glynn MD - 06/18/2025 4:29 PM EST I saw and evaluated the patient with the resident/fellow. I discussed the case with the resident/fellow and agree with the findings and plan as documented. * Progress Notes - Lissette Taylor - 06/18/2025 10:49 AM EST Physical Therapy Evaluation Patient Name: Noe Caraballo Today's Date: 06/18/2025 Total treatment time: 32 minutes PT Discharge Recommendations: Subacute rehab Equipment Recommended: Defer to facility History Noe Caraballo is 75 y.o. male admitted 06/17/2025 for work-up of Heart failure. Problem List Active Hospital Problems Diagnosis Date Noted Date Diagnosed Heart failure 06/17/2025 Past Medical History Patient has a past [...] history that includes splenectomy and Paracentesis. Precautions Medical Precautions: Fall precautions Subjective I'm so swollen. Pt and RN agreeable to PT services this date. Participants in Care Family/Caregiver Present: No Presentation Oxygen Therapy: None (Room air) Lines and Tubes: Telemetry, Intravenous access Pre-Session: Supine, Head of bed elevated, Lines intact Post-Session: Supine, Head of bed elevated, RN notified, Call light in reach, Lines intact Home Living/Set-up Lives With: Alone (neighbors can provide assist if needed) Home Type: Apartment Home Adaptive Equipment: Cane, shower chair, Rollator Home Layout: One level (second floor apartment with elevator access) Home Living Comments: Pt reports he can d/c to his daughter's house out of town for [place] where he will have 24hr assist. Unable to verify. Prior Level of Function Receives Help From: (neighbor drives pt to the store) Level of Mobility: Ambulatory- community Mobility [place]: Independent gait with device History of Falls: No ADL Performance: Independent Patient/Family Goals to feel better Objective Pain Pt endorsed generalized soreness from edema, RN aware. Pt positioned for comfort at close of session. Delirium Screening RASS: Alert and calm Confusion Assessment Method-ICU (CAM-ICU/PCAM-ICU) Feature 3: Altered Level of Consciousness: Negative Cognition Overall Cognitive Status: Within Functional Limits Arousal/Alertness: Appropriate responses to stimuli Mood/Behavior: Alert Orientation Level: Oriented X4 Single Step Commands: Consistently Multi-Step Commands: Consistently Method of Communication: Verbal Right Upper Extremity Examination RUE Assessment: Within Functional Limits Manual Muscle Testing - RUE: Within functional limits Sensation Light Touch: Right Upper Extremity: Intact Left Upper Extremity Examination LUE ROM Assessment LUE Assessment: Within Functional Limits Manual Muscle Testing - LUE Manual Muscle Testing - LUE: Within functional limits Sensation Light Touch: Left Upper Extremity: Intact Right Lower Extremity Examination RLE ROM Assessment RLE Assessment: Within Functional Limits Manual Muscle Testing - RLE Manual Muscle Testing - RLE: Within functional limits Sensation Light Touch: Right Lower Extremity: Mild impairment (2/2 edema) Left Lower Extremity Examination LLE Assessment: Within Functional Limits Manual Muscle Testing: Within functional limits Sensation Light Touch: Left Lower Extremity: Mild impairment (2/2 edema) Bed Mobility Bed Mobility Exam: Scooting/Bridging Level of Marne: Contact guard (to scoot up to HOB while supine) Physical/Nonphysical Assist: Verbal Cues, Nonverbal cues (demo/gestures) Bed Mobility Exam: Supine to Sit Level of [place]: Moderate assist (50% patient's effort) Physical/Nonphysical Assist: Verbal Cues, Nonverbal cues (demo/gestures), HOB elevated Assistive Device: (SQL REPORT DEVELOPER) Bed Mobility Exam: Sit to Supine Level of Mar[place]: Moderate assist (50% patient's effort) (BLE management) Physical/Nonphysical Assist: Verbal Cues, Nonverbal cues (demo/gestures), Additional assist utilized for safety Transfers Transfer Exam: Sit to stand Level of Marne: Contact guard Physical/Nonphysical Assist: Verbal Cues, Nonverbal cues (demo/gestures) Assistive Device: Rollator Transfer Exam: Stand to Sit Level of Marne: Contact guard Physical/Nonphysical Assist: Verbal Cues, Nonverbal cues (demo/gestures) Assistive Device: Rollator Ambulation Device: Rollator Assistance: Minimum assistance Distance : 100 ft Ambulation Comments: Shuffling gait, decreased gait speed, moderate forward trunk lean, tendency toutilize rollator outside [employer]. Cues provided for upright posture and safe use of rollator during ambulation. Pt required cueing for safe navigation of obstacles in room/hallway during ambulation. Balance Static Sitting Balance Static Sitting-Level of Assistance: Standby assist Dynamic Sitting Balance Level of Assistance: Standby assisst Static Standing Balance Static Standing-Level of Assistance: Contact guard Dynamic Standing Balance Dynamic Standing Level of Assistance: Minimum assistance Therapeutic Activity (16 minutes) See above interventions: bed mobility, transfers, and gait performed for task specific training . Pt requires cueing for safety/sequencing during transfers. Increased time required upon coming to sitat EOB, to acclimate to upright. Required cueing for safe use of rollator prior to standing-attempts to pull on rollator with BUE. Cues provided during ambulation for proximity of rollator. Further ambulation deferred 2/2 fatigue. PT provided pt education regarding safe use of rollator, walking program HEP, discharge recommendations, and strategies to decrease fall risk. Verbalized understanding. Standardized Assessments Standardized Assessments Standardized Assessments: [facility] 6-Clicks Mobility Assessment [facility] 6-Clicks Mobility Assessment Difficulty patient has turning over in bed (including adjusting bedclothes, sheets, and blankets)?:A lot Difficulty patient has sitting down on and standing up from a chair with arms (wheelchair, bedside commode, etc.)?: A little Difficulty patient has moving from lying on back to sitting on the side of the bed?: A lot How much help does the patient need moving to and from a bed to a chair (including a wheelchair)?: A little How much help does the patient need to walk in hospital room?: A little How much help does the patient need climbing 3-5 steps with a railing?: A lot [facility] 6-Clicks Mobility Assessment Total : 15 No data recorded Assessment Requires physical assist with transfers/ambulation 2/2 decreased balance and activity tolerance, aswell as BLE edema. VSS. Pt is a fall risk. Will progress mobility as appropriate. Pt would continueto benefit from skilled PT services to decrease fall risk and promote independence with functional mobility, in order to maximize potential level of function. Pt requires subacute rehab placement upon d/c as he currently requires physical assist with transfers and ambulation. Pt does NOT have 24hr assist available as he lives alone. High fall risk and highrisk for readmission in the case of a home d/c. Cannot tolerate 3 hours of therapy/day. Impairments: Decreased endurance, ventilation, and/or gas exchange, Impaired functional mobility/transfers, Impaired balance, Impaired motor cordination/control, Impaired gait dynamics/performance Activity Limitations: Inability to sit independently, Inability to ambulate household distances, Inability to complete ADLs independently, Inability to ambulate independently, Inability to ambulate community distances, Inability to transfer independently Participation Restrictions: Self-care, Home management, Community leisure Activity Tolerance: Tolerates 10 - 20 min activity with multiple rests Evaluation/Treatment Tolerance: Patient limited by fatigue Diagnosis: impaired functional mobility Rehab Potential: Good, to achieve stated therapy goals Eval Complexity History Profile: 1 - 2 personal factors and/or comorbidities Clinical Presentation: Evolving clinical presentation with changing characteristics Clinical Decision Making: Moderate complexity PT Recommendations Discharge Destination: Subacute rehab Discharge Equipment: Defer to facility Plan Planned PT Interventions Balance training, Bed mobility training, Gait training, Transfer training, Functional Mobility PT Frequency 2 - 5 times per week PT Duration 2 weeks Goals PT GOAL DETAILS Time Frame PT Goal 1: Pt will perform supine<>sit transfers independently with HOB flat, no use of bed rails. 2 weeks PT Goal 2: Pt will perform sit to stand and bed to chair transfers with Tamiko and LRD. PT Goal 3: Pt will ambulate 600ft with Tamiko and LRD. 2 weeks Written by Lissette Taylor on 06/18/2025 at 12:19 PM. * Progress Notes - Key Pitt - 06/18/2025 10:49 AM EST Occupational Therapy Evaluation Patient Name: Noe Caraballo Today's Date: 06/18/2025 OT Discharge Recommendations: Subacute rehab Equipment Recommended: Defer to facility History Noe Caraballo is 75 y.o. male admitted 06/17/2025 for work-up of Heart failure. Problem List Active Hospital Problems Diagnosis Date Noted Date Diagnosed Heart failure 06/17/2025 Procedures Past Medical History Patient has a [...] history that includes splenectomy and Paracentesis. Precautions Medical Precautions: Fall precautions Subjective Pt consent to tx Participants in Care Family/Caregiver Present: No Presentation Oxygen Therapy: None (Room air) Lines and Tubes: Telemetry, Intravenous access Pre-Session: Supine, Head of bed elevated, Lines intact Pre-Session Comments: RN consent to tx Post-Session: Supine, Head of bed elevated, RN notified, Call light in reach, Lines intact Post-Session Comments: Needs met; RN at the bedside Home Living/Set-up Lives With: Alone (neighbors can provide assist if needed) Home Type: Apartment Home Adaptive Equipment: Cane, shower chair, Rollator Home Layout: One level (second floor apartment with elevator access) Home Living Comments: Pt reports he can d/c to his daughter's house out of town for [place] where he will have 24hr assist. Unable to verify. Prior Level of Function Receives Help From: (neighbor drives pt to the store) Level of Mobility: Ambulatory- community Mobility [place]: Independent gait with device History of Falls: No ADL Performance: Independent Patient/Family Goals Statement Pt consent to tx Objective Pain Pt endorsed generalized soreness from edema, RN aware. Pt positioned for comfort at close of session. Delirium Screening RASS: Alert and calm Confusion [...] Muscle Testing - RUE: Within functional limits Sensation Light Touch: Right Upper Extremity: Intact Left Upper Extremity Examination LUE ROM Assessment LUE Assessment: Within Functional Limits Manual Muscle Testing - LUE: Within functional limits Sensation Light Touch: Left Upper Extremity: Intact Right Lower Extremity Examination RLE ROM Assessment RLE Assessment: Within Functional Limits Manual Muscle Testing - RLE: Within functional limits Sensation Light Touch: Right Lower Extremity: Mild impairment (2/2 edema) Left Lower Extremity Examination LLE ROM Assessment LLE Assessment: Within Functional Limits Manual Muscle Testing: Within functional limits Sensation Light Touch: Left Lower Extremity: Mild impairment (2/2 edema) Bed Mobility Bed Mobility Exam: Scooting/Bridging Physical/Nonphysical Assist: Verbal Cues, Nonverbal cues (demo/gestures) Bed Mobility Exam: Supine to Sit Level of [place]: Moderate assist (50% patient's effort) Physical/Nonphysical Assist: Verbal Cues, Nonverbal cues (demo/gestures), HOB elevated Bed Mobility Exam: Sit to Supine Physical/Nonphysical Assist: Verbal Cues, Nonverbal cues (demo/gestures), Additional assist utilized for safety Transfers Transfer Exam: Sit to stand Level of Mar[place]: Contact guard Physical/Nonphysical Assist: Verbal Cues, Nonverbal cues (demo/gestures) Assistive Device: Rollator Transfer Exam: Stand to Sit Level of Marne: Contact guard Physical/Nonphysical Assist: Verbal Cues, Nonverbal cues (demo/gestures) Assistive Device: Rollator Balance Static Sitting Balance Static Sitting-Level of Assistance: Standby assist Dynamic Sitting Balance Level of Assistance: Standby assisst Static Standing Balance Static Standing-Level of Assistance: Contact guard Dynamic Standing Balance Dynamic Standing Level of Assistance: Minimum assistance Self-Care Interventions Self Care/Home Management (ADLs) Time Entry: 17 Self-Care Interventions: OT provides max A for all LB BADL and mod A for toileting 2/2 pt compromised truncal mobility and eccentrics as well as delayed righing/protective reaction due to debility and decreased stamina; with this assist pt better able to demonstrate self-recruitment during static sit with ability to participate in anterior pericare with LOYOLA for item-retrieval as well as increased reserves to better participate in grooming BADL at EOB (he requires LOYOLA for item-retrieval). Pt able to plan and sequence BADL task appropriately with normal understanding of item use and recognition. OT educates pt on the importance of energy conservation and supervision (initial) when participatingin BADL (showering) to promote safe ADL participation and to decrease risk of falls. OT educates pton importance of seated UB/LB dressing as he recovers as well as acquiring a shower chair/TTB to promote safe bathing. Pt verbalize understanding. Grooming Grooming Level of Assistance: Setup, Contact guard Grooming Where Assessed: Standing sinkside Lower Extremity Dressing Sock Level of Assistance: Dependent Shoe Level of Assistance: Dependent Adult Briefs Level of Assistance: Maximum assistance LE Dressing Where Assessed: Edge of bed Toileting Toileting Level of Assistance: Moderate assistance Where Assessed: Toilet, Other (Comment) (anticipated; delayed righting and protective reactions as well as fair truncal eccentrics) Standardized Assessments [facility] 6-Click Daily Activities Help from Other: Don/Doff Regular Lower Body Clothings: A lot Help From Other: Bathing: A lot Help From Other: Toileting: A lot Help From Other: Don/Doff Upper Body Clothings: Little Help From Other: Grooming: Little Help From Other: Eating Meals: None [facility] 6 Click - Daily Activities Score: 16 Assessment Pt responds well to tx; benefits from mod/max A during BADL to promote recovery and safe participation. Pt oriented x4 though benefits from cues for sequencing and ongoing check in for energy levels.He will benefit from OT while in house to address goals below. If pt were to instead discharge home instead of subacute rehab he would be at a high risk for fall,infection, and an overall increase in mortality. A discharge to a rehab of a lesser intensity (home-health, outpatient) is inappropriate for pt and would in fact hinder his recovery as he would not be receiving the intensity of physical rehab that he requires, impeding recovery potential. OT Findings: Impaired ADL performance, Impaired IADL performance, Impaired functional mobility, Decreased endurance/ventilation/gas exchange, Impaired postural/trunk control, Impaired judgment duringADL, Impaired balance Rehab Potential: Good, to achieve stated therapy goals Eval Complexity Occupational Profile: Expanded review of medical/therapy records and additional review of physical,cognitive, or psychosocial history Performance Deficits: Activities of daily living (ADLs), Instrumental activities of daily living (IADLs), Habits, Routines, Roles Clinical Decision Making: Moderate Overall Eval complexity: Moderate OT Recommendations Discharge Destination: Subacute rehab Discharge Equipment: Defer to facility Plan Planned OT Interventions ADL retraining, IADL retraining, Balance training, Bed mobility Training, Functional mobility, Transfer training, Cognitive retraining, Caregiver education, ROM OT Frequency 2 - 5 times per week OT Duration 2 weeks Goals OT GOAL DETAILS Time Frame OT Goal 1: Pt will demonstrate toileting with mod A and LRAD 2 weeks OT Goal 2: Pt will demonstrate toilet transfer with min A and LRAD 2 weeks OT Goal 3: Pt will demonstrate dynamic reach during grooming in standing with CGA and LRAD 2 weeks Written by Key Pitt on 06/18/2025 at 1:18 PM. * H&P - Binta Leos MD - 06/17/2025 11:37 PM EST Images from the original note were not included. INPATIENT CARDIOLOGY ([facility]) HISTORY & PHYSICAL History Of Present Illness Noe Caraballo is a 75 y.o. male with significant PMHx of myelofibrosis s/p splenectomy 03/2024, chronic HFrEF 30-35%,severe MR, Afib not on AC, chronic back pain, CKD, ascites gets outpatient paracentesis (per previous documentation, no evidence of cirrhosis on imaging, possibly ascites 2/2 cardiac issues per GI) who presented to [facility] on 06/17/2025 with dyspnea on exertion. The patient states that he has gained approximately 20lbs since his discharge in May. He has been experiencing increased shortness of breath and lower extremity edema during this time. He deniesany cough, congestion, just pain, n/v/d, fever/chills, or myalgias. In ED, patient was hemodynamically stable on room air. Laboratory evaluation was significant for WBC 55, Na 131, K 5.1, Cr 2.9 (baseline 2.1-2.3), BUN 66, AST 54, total bilirubin 2.2, alk phos 360, and BNP 8,695. Chest x-ray notable for no acute cardiopulmonary pathology. EKG shown below. Cardiology was consulted for admission and further management. Past Medical History Past Medical History[1] Surgical History Surgical History[2] Family History family history includes No Known Problems in his daughter, father, and mother. Social History Tobacco use: Denies Alcohol use: Denies any significant recent usage. Other: Denies any recent illicit drug use. Allergies Patient has no known allergies. Home Medications Current Outpatient Medications Medication Instructions bumetanide (BUMEX) 1 mg, Oral, Daily empagliflozin (JARDIANCE) 10 mg, Oral, Daily ferrous sulfate 324 (65 Fe) MG EC tablet TAKE 1 TABLET BY MOUTH EVERY MORNING WITH BREAKFAST. DO NOT CHEW,CRUSH, OR SPLIT gabapentin (NEURONTIN) 300 mg, Oral, 3 times daily HYDROcodone-acetaminophen (Juncos) 10-325 MG tablet 10 mg of hydrocodone, 4 times daily PRN Momelotinib Dihydrochloride 200 mg, Oral, Daily rosuvastatin (CRESTOR) 10 mg, Oral, Nightly OBJECTIVE Blood pressure 112/67, pulse 82, temperature 36.3 ??C (97.4 ??F), temperature source Oral, resp. rate 13, height 1.6 m (5' 3 ), weight 98.6 kg (217 lb 6 oz), SpO2 93%. GENERAL: NAD, cooperative CV: RRR, bilateral lower extremity edema LUNGS: CTAB ABD: soft, nontender, distended NEURO: AOx3 CBC: Lab Results Component Value Date WBC 55.94 (H) 06/17/2025 HGB 15.1 06/17/2025 HCT 49.3 06/17/2025 PLT 71 (L) 06/17/2025 MCV 81 06/17/2025 MCH 24.7 (L) 06/17/2025 MCHC 30.6 (L) 06/17/2025 RDW 30.4 (H) 06/17/2025 NRBC 10.2 (H) 06/17/2025 Differential: Lab Results Component Value Date WBC 55.94 (H) 06/17/2025 NEUTOPHILPCT 86 06/17/2025 LYMPHOPCT 2 06/17/2025 MONOPCT 8 06/17/2025 EOSPCT 2 06/17/2025 NEUTROABS 48.11 (H) 06/17/2025 Coagulation: No results found for: INR , PT , PTT , CLFGN Renal: Lab Results Component Value Date NA 131 (L) 06/17/2025 K 5.1 (H) 06/17/2025 CL 97 06/17/2025 CO2 21 (L) 06/17/2025 BUN 66 (H) 06/17/2025 CREATININE 2.90 (H) 06/17/2025 GLUCOSE 90 06/17/2025 CALCIUM 8.7 (L) 06/17/2025 Liver: Lab Results Component Value Date AST 54 (H) 06/17/2025 ALT 18 06/17/2025 BILITOT 2.2 (H) 06/17/2025 Glucose: No results found for: PGLU Lab Results Component Value Date HGBA1C 5.9 (H) 09/26/2024 Results / Imaging Most recent Echocardiogram (10/05/2024): Left Ventricle: Based on the indexed 2D [...] right ventricular systolic function based upon the tricuspid annular plane of systolic excursion (TAPSE) is normal (>=17 mm). The estimated global right ventricular systolic function based upon the TDI maximal systolic velocity is reduced (<9.5 cm/s). Compared to the most recently available prior study, and allowing for differences in image quality and technique, there is no significant interval change noted. ECG/Telemetry: ASSESSMENT/PLAN Noe Caraballo is a 75 y.o. male with significant PMHx as above who presented to [facility] on 06/17/2025 with concern for acute HFrEF exacerbation. Acute on Chronic HFrEF -Increased dyspnea, lower extremity edema, and reported 20lb weight gain in the last month -BNP elevated to 8,695 on arrival PLAN -Will plan for diuresis with Bumex 2mg IV, goal net negative 1.5-2L in 24 hours -Will defer patient's GDMT of spironolactone and jardiance at this time in the setting of his reduced EGFR and hyperkalemia -Strict Is/Os -Daily standing weights Ascites -Reportedly has had no signs of cirrhosis in his work up; was previously receiving outpatient paracentesis regularly -Recently admitted 05/2025 and treated for SBP; unclear if discharged with prophylaxis PLAN -Diagnostic paracentesis to be obtained by ED providers, will follow cultures Myelofribrosis -Momelotinib Dihydrochloride 200 MG is unfortunately non-formulary, patient will need to provide from his home medications Hyperlipidemia -Continue rosuvastatin 10mg daily Chronic Pain -Continue home gabapentin 300mg TID daily and Juncos 10-325mg Q6H PRN Diet: Cardiac DVT ppx: SCDs Code Status: Full Dispo: Admit to [facility]. Binta Leos MD, PGY-2 Internal Medicine 06/17/2025 11:38 PM [1] Past Medical History: Diagnosis Date ACC/AHA [...] Laterality Date PARACENTESIS biweekly via IR SPLENECTOMY Cosigned by Viktoria Glynn MD at 06/22/2025 10:29 PM EST Associated attestation - Viktoria Glynn MD - 06/22/2025 10:29 PM EST I saw and evaluated the patient with the resident/fellow. I discussed the case with the resident/fellow and agree with the findings and plan as documented. * Progress Notes - Dannielle Shipman RN - 06/17/2025 4:45 PM EST Geriatric Alert Note Pt reports 20lb weight gain in 2 weeks since d/c from hospital. Reports hx of CHF and reports generalized swelling. Lives at [facility] Geriatric Triage Risk Screening Tool (TRST) Cognitive impairment: No Five or more medications: Yes Difficulty walking/ transferring, or recent falls: Yes ED use in the last 30 days or hospitalization in previous 90 days: Yes Lives alone and/ or no caregiver: No ED staff concerns: No TRST Assessment Total: 3 Pt scored 3 on TRST questionnaire. Discussed fall safety measures [...] needs verbalized at this time. * ED Procedure Note - Gil Robles DO - 06/17/2025 4:16 PM ESTAssociated Order(s): Paracentesis Procedure Reason: Ascites Paracentesis Performed by: Gil Robles DO Authorized by: Peter Hamilton MD Consent: Consent obtained: Written Consent given by: Patient Risks discussed: Bleeding, bowel perforation, infection and pain Alternatives discussed: No treatment and delayed treatment [place] protocol: Procedure explained and questions answered to patient or proxy's satisfaction: yes Test results available: yes Required blood products, implants, devices, and special equipment available: yes Patient identity confirmed: Arm band Attending Supervision?: yes Pre-procedure details: Procedure purpose: Diagnostic Preparation: Patient was prepped and draped in usual sterile fashion Anesthesia: Anesthesia method: Local infiltration Local anesthetic: Lidocaine 1% WITH epi Procedure details: Ultrasound guidance: yes Dressinx4 sterile gauze and adhesive bandage Post-procedure details: Procedure completion: Tolerated well, no immediate complications Gil Robles DO Resident 06/17/[id number] Cosigned by Peter Hamilton MD at 06/21/2025 9:26 AM EST Associated attestation - Peter Hamilton MD - 06/21/2025 9:26 AM EST I saw and evaluated the patient with the resident/fellow. I discussed the case with the resident/fellow and agree with the findings and plan as documented. I was present during the critical and putnam portions of the procedure and immediately available to furnish services the entire duration. See resident note for details. * ED Provider Notes - Xin Mejía MD - 06/17/2025 4:16 PM EST - HPI Chief Complaint Patient presents with Shortness of Breath Swelling HPI Noe Caraballo is a 75 y.o. male with past medical history of myelofibrosis s/p splenectomy 03/2024, chronic HFrEF 30-35%,severe MR, Afib not on AC, chronic back pain, CKD, ascites gets outpatient paracentesis (per previous documentation, no evidence of cirrhosis on imaging, possibly ascites 2/2 cardiac issues per GI) who presents today with increased weight gain, swelling, and shortness of breath. He states for the past week he has been gaining weight, getting more short of breath, and feel like he is building up fluid. No cough or congestion. No chest pain. No abdominal pain, just pressure.States he has not had a paracentesis in quite some time. He thinks he has gained 20-30 lbs since his most recent discharge. States he has been compliant with meds. Patient History Past Medical History[1] Surgical History[2] Family History[3] Social History[4] Allergies: Allergies[5] Physical Exam ED Triage Vitals [06/17/25 1627] Temp Heart Rate Resp BP 36.3 ??C (97.4 ??F) 77 16 112/70 SpO2 Temp Source Heart Rate Source Patient Position 96 % Oral -- Lying BP Location FiO2 (%) Left arm -- Physical Exam Constitutional: General: He is not in acute distress. Appearance: He is ill-appearing. He is not toxic-appearing. HENT: Head: Normocephalic and atraumatic. Eyes: Pupils: Pupils are equal, round, and reactive to light. Cardiovascular: Rate and Rhythm: Normal rate and regular rhythm. Comments: Diffuse anasarca Pulmonary: Effort: Tachypnea present. Breath sounds: No decreased breath sounds, wheezing or rhonchi. Comments: Mild conversational dyspnea and increased WOB. On RA. Musculoskeletal: Right lower leg: Edema present. Left lower leg: Edema present. Comments: 2+ pitting edema to BL LE Skin: General: Skin is warm and dry. Capillary Refill: Capillary refill takes less than 2 seconds. Neurological: General: No focal deficit present. Mental Status: He is alert. EASI ?? Total Score: 0 Prachi Coma Scale Score: 15 Mini Nutritional Screening Score : 13 TRST Assessment Total: 3 ED Course & MDM - Assessment: 75 y.o. male presents to ED with complaint of swelling and SOB. It should be noted that the chronicconditions includes myelofibrosis s/p splenectomy 03/2024, chronic HFrEF 30-35%,severe MR, Afib not on AC, chronic back pain, CKD, ascites, which currently is not at goal therapy. This complicates theclinical picture because it Comorbidities: may be exacerbating symptoms, increases the amount and complexity of data to be reviewed, and complicates the clinical workup Differential Diagnosis: volume overload, acute on chronic CHF, SBP, hepatorenal sydrome, cardiorenal syndrome, among others. In order to fully explore the differential diagnosis the following treatments and tests were ordered: All Other Orders Ordered Status Ordering Provider 06/17/25 2218 ECG Adult Once Preliminary result COOPERSVITLANAXIN W 06/17/25 1916 Manual Differential Once Final result RUBA PETER Hodges 06/17/25 1916 Morphology Once Final result RUBA PETER Carroll 06/17/25 1725 XR Chest 1 View One time imaging Final result RUBA PETER Carroll 06/17/25 1720 Extra Tubes Once Final result RUBA PETER Carroll 06/17/25 1720 Gold Top PROCEDURE ONCE Final result RUBA PETER Carroll 06/17/25 1655 CBC w/diff STAT Final result RUBA PETER Carroll 06/17/25 1655 CMP STAT Final result RUBA PETER Carroll 06/17/25 1655 BNP STAT Final result RUBA PETER Carroll 06/17/25 1655 Hepatitis C Antibody - ED W/Reflex to HCV Quant PCR Once Final result RUBA PETER Carroll 06/17/25 1624 EKG now - STAT (adult) Once Preliminary result [facility] ED Course as of 06/17/25 2308 Ban Jun 17, 2025 1748 Vitals upon arrival with BP of 112/70, HR of 77, normal RR and O2 sat on RA. Afebrile. [JG] 1750 EKG now - STAT (adult) EKG per my personal interpretation with normal sinus rhythm, no signs of ischemia including ST changes or T wave inversions, normal intervals. [JG] 1751 N-Terminal, PROBNP, Plasma(!): 8,695 Elevated from baseline [JG] 1751 Creatinine(!): 2.90 At baseline, electrolytes overall at baseline as well [JG] 1752 Alkaline Phosphatase(!): 360 Consistent with priors [JG] 1752 Total Bilirubin, Plasma(!): 2.2 Consistent with priors [JG] 1813 XR Chest 1 View Mild pulmonary edema. [JG] 1918 WBC(!): 55.94 Consistent with baseline [JG] 2250 Bedside paracentesis to be performed by oncoming resident. Orders for peritoneal fluid studiesordered. [JG] 2252 Bumex 1mg IV ordered for diuresis [JG] ED Course User Index [JG] Xin Mejía MD Social Determinates of Health Risks (including Economic Stability, Education and level of understanding, Healthcare access and quality and concerning social factors): None identified on this visit Ultimately, this patient was Was admitted (Admission) There were no encounter diagnoses.. Patient believed to require admission for the listed diagnoses. The cardiology service was consulted for admission and was agreeable to admit to the acute floor. ED Prescriptions None - [1] Past Medical [...] Drug use: Never [5] No Known Allergies Xin Mejía MD Resident 06/18/25 1056 Cosigned by Peter Hamilton MD at 06/21/2025 9:26 AM EST Associated attestation - Peter Hamilton MD - 06/21/2025 9:26 AM EST I saw and evaluated the patient with the resident/fellow. I discussed the case with the resident/fellow and agree with the findings and plan as documented. * ED Triage Notes - Precious Aguilar RN - 06/17/2025 4:16 PM EST Pt reports 20lb weight gain in 2 weeks since d/c from hospital. Reports hx of CHF and reports generalized swelling. VSS, GCS 15 documented in this encounter Plan of Treatment Upcoming Encounters Date Type Department Care Team ([facility] st Contact Info) Description 07/05/2025 3:00 PM EST Clinical Support [facility] Cellular Therapy [facility] [address] [place] [address] 07/05/2025 3:30 PM EST Office Visit [facility] [address] [place] [address] Vaishnavi Almaraz MD 800 [facility] [address] [place] [phone] 09/13/2025 10:30 AM EDT Clinical Support [facility] [address] [place] [address] 09/13/2025 11:00 AM EDT Office Visit [facility] Therapy [facility] 750 [facility] [place] [address] Vaishnavi Almaraz MD [address] [facility] [address] [place] [address] documented as of this encounter Procedures Procedure Name Priority Date/Time Associated Diagnosis Comments POTASSIUM, WHOLE BLOOD Timed 06/25/2025 4:23 AM EST CBC W/O DIFFERENTIAL Routine 06/25/2025 4:23 AM EST PHOSPHORUS, PLASMA Routine 06/25/2025 4: 23 AM EST MAGNESIUM, PLASMA Timed 06/25/2025 4:2 3 AM EST HEPATIC FUNCTION PANEL Routine 06/25/2025 4:23 AM EST BASIC METABOLIC PANEL, PLASMA Timed 06/25/2025 4:23 AM EST POTASSIUM, WHOLE BLOOD Timed 06/24/2025 3:59 PM EST MAGNESIUM, PLASMA Timed 06/24/2025 3:5 9 PM EST BASIC METABOLIC PANEL, PLASMA Timed 06/24/2025 3:59 PM EST POTASSIUM, WHOLE BLOOD Timed 06/24/2025 9:23 AM EST MAGNESIUM, PLASMA Timed 06/24/2025 9:2 3 AM EST BASIC METABOLIC PANEL, PLASMA Timed 06/24/2025 9:23 AM EST OXYGEN THERAPY Routine 06/24/2025 8:00 AM EST CBC W/O DIFFERENTIAL Routine 06/24/2025 2:52 AM EST PHOSPHORUS, PLASMA Routine 06/24/2025 2: 52 AM EST HEPATIC FUNCTION PANEL Routine 06/24/2025 2:52 AM EST POTASSIUM, WHOLE BLOOD Timed 06/23/2025 11:56 PM EST MAGNESIUM, PLASMA Timed 06/23/2025 11: 56 PM EST BASIC METABOLIC PANEL, PLASMA Timed 06/23/2025 11:56 PM EST ECG ADULT STAT 06/23/2025 9:12 PM EST BASIC METABOLIC PANEL, PLASMA STAT 06/23/2025 8:58 PM EST MAGNESIUM, PLASMA STAT 06/23/2025 8:5 7 PM EST OXYGEN THERAPY Routine 06/23/2025 8:00 PM EST POTASSIUM, WHOLE BLOOD Timed 06/23/2025 4:54 PM EST MAGNESIUM, PLASMA Timed 06/23/2025 4:5 4 PM EST BASIC METABOLIC PANEL, PLASMA Timed 06/23/2025 4:54 PM EST POTASSIUM, WHOLE BLOOD Timed 06/23/2025 8:16 AM EST MAGNESIUM, PLASMA Timed 06/23/2025 8:1 6 AM EST BASIC METABOLIC PANEL, PLASMA Timed 06/23/2025 8:16 AM EST OXYGEN THERAPY Routine 06/23/2025 8:00 AM EST PHOSPHORUS, PLASMA Routine 06/23/2025 4: 13 AM EST HEPATIC FUNCTION PANEL Routine 06/23/2025 4:13 AM EST URINALYSIS WITH REFLEX MICROSCOPIC Routine 06/23/2025 12:55 AM EST POTASSIUM, WHOLE BLOOD Timed 06/23/2025 12:05 AM EST CBC W/O DIFFERENTIAL Routine 06/23/2025 12:05 AM EST MAGNESIUM, PLASMA Timed 06/23/2025 12: 05 AM EST BASIC METABOLIC PANEL, PLASMA Timed 06/23/2025 12:05 AM EST OXYGEN THERAPY Routine 06/22/2025 8:00 PM EST POTASSIUM, WHOLE BLOOD Pending Discharge 06/22/2025 5:08 PM EST MAGNESIUM, PLASMA Pending Discharge 06/22/2025 4:35 PM EST BASIC METABOLIC PANEL, PLASMA Pending Discharge 06/22/2025 4:35 PM EST POTASSIUM, WHOLE BLOOD Pending Discharge 06/22/2025 8:42 AM EST MAGNESIUM, PLASMA Pending Discharge 06/22/2025 8:42 AM EST BASIC METABOLIC PANEL, PLASMA Pending Discharge 06/22/2025 8:42 AM EST OXYGEN THERAPY Routine 06/22/2025 8:00 AM EST LACTATE, VENOUS Routine 06/22/2025 12:10 AM EST POTASSIUM, WHOLE BLOOD Timed 06/22/2025 12:10 AM EST CBC W/O DIFFERENTIAL Routine 06/22/2025 12:10 AM EST PHOSPHORUS, PLASMA Routine 06/22/2025 12 :10 AM EST MAGNESIUM, PLASMA Timed 06/22/2025 12: 10 AM EST HEPATIC FUNCTION PANEL Routine 06/22/2025 12:10 AM EST BASIC METABOLIC PANEL, PLASMA Timed 06/22/2025 12:10 AM EST OXYGEN THERAPY Routine 06/21/2025 8:00 PM EST EXTRA TUBE LIGHT GREEN TOP Routine 06/21/2025 4:14 PM EST POTASSIUM, WHOLE BLOOD Routine 06/21/2025 4:14 PM EST EXTRA TUBES Routine 06/21/2025 4:14 PM EST MAGNESIUM, PLASMA Timed 06/21/2025 4:1 4 PM EST BASIC METABOLIC PANEL, PLASMA Timed 06/21/2025 4:14 PM EST MAGNESIUM, PLASMA Timed 06/21/2025 12: 09 PM EST BASIC METABOLIC PANEL, PLASMA Timed 06/21/2025 12:09 PM EST OXYGEN THERAPY Routine 06/21/2025 8:00 AM EST CBC W/O DIFFERENTIAL Timed 06/21/2025 7:21 AM EST MAGNESIUM, PLASMA Timed 06/21/2025 7:2 1 AM EST RENAL FUNCTION PANEL, PLASMA Timed 06/21/2025 7:21 AM EST LACTATE, VENOUS Routine 06/21/2025 5:36 AM EST ECG ADULT Routine 06/20/2025 11:32 PM EST CBC W/O DIFFERENTIAL Timed 06/20/2025 9:00 PM EST PHOSPHORUS, PLASMA Timed 06/20/2025 9: 00 PM EST MAGNESIUM, PLASMA Timed 06/20/2025 9:0 0 PM EST HEPATIC FUNCTION PANEL Routine 06/20/2025 9:00 PM EST BASIC METABOLIC PANEL, PLASMA Timed 06/20/2025 9:00 PM EST OXYGEN THERAPY Routine 06/20/2025 8:00 PM EST PROCALCITONIN, PLASMA Add-On 06/20/2025 5:06 PM EST CBC W/O DIFFERENTIAL Timed 06/20/2025 5:06 PM EST C-REACTIVE PROTEIN, PLASMA Add-On 06/20/2025 5:06 PM EST POTASSIUM, PLASMA Routine 06/20/2025 5:0 6 PM EST PHOSPHORUS, PLASMA Timed 06/20/2025 5: 06 PM EST MAGNESIUM, PLASMA Timed 06/20/2025 5:0 6 PM EST BASIC METABOLIC PANEL, PLASMA Timed 06/20/2025 5:06 PM EST EXTRA TUBE LAVENDER TOP Routine 06/20/2025 10:12 AM EST EXTRA TUBES Routine 06/20/2025 10:12 AM EST MAGNESIUM, PLASMA Timed 06/20/2025 10: 12 AM EST BASIC METABOLIC PANEL, PLASMA Timed 06/20/2025 10:12 AM EST OXYGEN THERAPY Routine 06/20/2025 8:00 AM EST ECHO, ADULT TRANSTHORACIC LIMITED STAT 06/20/2025 7:56 AM EST CBC W/O DIFFERENTIAL Timed 06/20/2025 12:03 AM EST PHOSPHORUS, PLASMA Timed 06/20/2025 12 :03 AM EST MAGNESIUM, PLASMA Timed 06/20/2025 12: 03 AM EST HEPATIC FUNCTION PANEL Routine 06/20/2025 12:03 AM EST BASIC METABOLIC PANEL, PLASMA Timed 06/20/2025 12:03 AM EST OXYGEN THERAPY Routine 06/19/2025 8:00 PM EST POCT GLUCOSE METER UNSOLICITED RESULTS Routine 06/19/2025 7:35 PM EST WOUND OSTOMY EVAL AND TREAT Routine 06/19/2025 6:33 PM EST ECG ADULT STAT 06/19/2025 6:11 PM EST URINALYSIS WITH REFLEX MICROSCOPIC Routine 06/19/2025 5:55 PM EST ECG ADULT STAT 06/19/2025 5:43 PM EST POTASSIUM, PLASMA Routine 06/19/2025 5:3 8 PM EST POCT GLUCOSE METER UNSOLICITED RESULTS Routine 06/19/2025 4:42 PM EST CBC W/O DIFFERENTIAL Timed 06/19/2025 4:13 PM EST PHOSPHORUS, PLASMA Timed 06/19/2025 4: 13 PM EST MAGNESIUM, PLASMA Timed 06/19/2025 4:1 3 PM EST BASIC METABOLIC PANEL, PLASMA Timed 06/19/2025 4:13 PM EST US RENAL COMPLETE STAT 06/19/2025 3:1 9 PM EST POCT GLUCOSE METER UNSOLICITED RESULTS Routine 06/19/2025 12:59 PM EST LACTATE, VENOUS Routine 06/19/2025 11:05 AM EST OXYGEN THERAPY Routine 06/19/2025 8:00 AM EST CBC W/O DIFFERENTIAL Routine 06/19/2025 4:41 AM EST PHOSPHORUS, PLASMA Routine 06/19/2025 4: 41 AM EST MAGNESIUM, PLASMA Routine 06/19/2025 4:4 1 AM EST HEPATIC FUNCTION PANEL Add-On 06/19/2025 4:41 AM EST BASIC METABOLIC PANEL, PLASMA Routine 06/19/2025 4:41 AM EST UREA NITROGEN, RANDOM URINE Routine 06/18/2025 10:30 PM EST SODIUM, URINE, RANDOM Routine 06/18/2025 10:30 PM EST CREATININE, RANDOM URINE Routine 06/18/2025 10:30 PM EST OXYGEN THERAPY Routine 06/18/2025 8:00 PM EST MAGNESIUM, PLASMA Routine 06/18/2025 5:2 1 PM EST BASIC METABOLIC PANEL, PLASMA Routine 06/18/2025 5:21 PM EST ALBUMIN, PERITONEAL FLUID Routine 06/18/2025 9:51 AM EST OXYGEN THERAPY Routine 06/18/2025 8:00 AM EST POCT GLUCOSE METER UNSOLICITED RESULTS Routine 06/18/2025 6:51 AM EST CBC W/O DIFFERENTIAL Routine 06/18/2025 3:36 AM EST PHOSPHORUS, PLASMA Routine 06/18/2025 3: 36 AM EST MAGNESIUM, PLASMA Routine 06/18/2025 3:3 6 AM EST FREE HEMOGLOBIN,PLASMA Routine 06/18/2025 3:36 AM EST BASIC METABOLIC PANEL, PLASMA Routine 06/18/2025 3:36 AM EST LACTATE, VENOUS Routine 06/18/2025 1:57 AM EST URINALYSIS, DIPSTICK STAT 06/18/2025 1:56 AM EST OXYGEN THERAPY Routine 06/17/2025 11:44 PM EST OXYGEN THERAPY Routine 06/17/2025 11:44 PM EST OXYGEN THERAPY Routine 06/17/2025 11:44 PM EST BODY FLUID CELL COUNT W/ MANUAL DIFFERENTIAL STAT 06/17/2025 11:15 PM EST BODY FLUID, CYTOSPIN, PATHOLOGIST INTERPRETATION STAT 06/17/2025 11:15 PM EST AMYLASE, PERITONEAL FLUID STAT 06/17/2025 11:14 PM EST BODY FLUID CULTURE AND GRAM STAIN STAT 06/17/2025 11:14 PM EST TOTAL PROTEIN, PERITONEAL FLUID STAT 06/17/2025 11:14 PM EST LACTATE DEHYDROGENASE, PERITONEAL FLUID STAT 06/17/2025 11:14 PM EST GLUCOSE, PERITONEAL FLUID STAT 06/17/2025 11:14 PM EST ECG ADULT STAT 06/17/2025 10:23 PM EST XR CHEST 1 VIEW STAT 06/17/2025 5:50 PM EST EXTRA TUBE GOLD TOP Routine 06/17/2025 5 :16 PM EST MORPHOLOGY STAT 06/17/2025 5:16 PM EST EXTRA TUBES Routine 06/17/2025 5:16 PM EST MANUAL DIFFERENTIAL STAT 06/17/2025 5 :16 PM EST HEPATITIS C ANTIBODY - ED W/REFLEX TO HCV QUANT PCR STAT 06/17/2025 5:16 PM EST N-TERMINAL PROBNP, PLASMA STAT 06/17/2025 5:16 PM EST CBC WITH AUTO DIFFERENTIAL STAT 06/17/2025 5:16 PM EST COMPREHENSIVE METABOLIC PANEL, PLASMA STAT 06/17/2025 5:16 PM EST ECG ADULT STAT 06/17/2025 4:56 PM EST HC ABDOMINAL PARACENTESIS DIAGNOSIS/THERAPY W IMAGING GUIDANCE Routine 06/17/2025 4:16 PM EST WA ABDOM PARACENTESIS DX/THER W IMAGING GUIDANCE Routine 06/17/2025 4:16 PM EST documented in this encounter Results * (ABNORMAL) Potassium, Whole Blood (06/25/2025 4:23 AM EST) Potassium, Whole Blood 3.2(L) 3.6 - 4.9 mmol/L LAB HEMATOLOGY METHOD 06/25/2025 5:03 AM EST [facility] Blood Venous blood specimen / Unknown Venipuncture / Unknown 06/25/2025 4:23 AM EST 06/25/2025 4:57 AM EST Sherly Malik MD LAB BLOOD ORDERABLES Final Result Performing Organization Address City/[facility]/ZIP Co de Phone Number [facility] [address] [place] [address] * Magnesium (06/25/2025 4:23 AM EST) Magnesium, Plasma 2.1 1.9 - 2.4 mg/dL 06/25/2025 5:29 AM EST [facility] Blood Venous blood specimen / Unknown Venipuncture / Unknown 06/25/2025 4:23 AM EST 06/25/2025 4:58 AM EST Sherly Malik MD LAB BLOOD ORDERABLES Final Result Performing Organization Address City/[facility]/ZIP Co de Phone Number [facility] [address] [place] [address] * (ABNORMAL) Basic metabolic panel (06/25/2025 4:23 AM EST) Glucose, Plasma 88 74 - 99 mg/dL 06/25/2025 5:29 AM EST [facility] BUN, Plasma 81(H) 8 - 23 mg/dL 06/25/2025 5:29 AM EST [facility] Creatinine, Plasma 3.06(H) 0.70 - 1.20 mg/dL 06/25/2025 5:29 AM EST [facility] BUN/Creatinine Ratio 06/25/2025 5:29 AM EST [facility] Sodium, Plasma 136 136 - 145 mmol/L 06/25/2025 5:29 AM EST [facility] Potassium, Plasma 3.4(L) 3.6 - 4.9 mmol/L 06/25/2025 5:29 AM EST [facility] Chloride, Plasma 85(L) 97 - 107 mmol/L 06/25/2025 5:29 AM EST [facility] CO2, Plasma 34(H) 22 - 29 mmol/L 06/25/2025 5:29 AM EST [facility] Anion Gap 17(H) 6 - 16 mmol/L 06/25/2025 5:29 AM EST [facility] Total Calcium, Plasma 8.9 8.9 - 10.2 mg/dL 06/25/2025 5:29 AM EST [facility] eGFRcr 20.6 mL/min/1.7 3m*2 06/25/2025 5:29 AM EST [facility] Comment:Reported eGFRcr in m L/min/1.73m2 is based the CKD-EPI 2020 equation that does not use a race coefficient. Blood Venous blood specimen / Unknown Venipuncture / Unknown 06/25/2025 4:23 AM EST 06/25/2025 4:58 AM EST us Sherly Malik MD LAB BLOOD ORDERABLES Final Result [facility] [address] [place] [address] * (ABNORMAL) CBC W/O Differential (06/25/2025 4:23 AM EST) WBC Count 84.93(HH) 3.70 - 10.30 10*3/uL LAB HEMATOLOGY METHOD 06/25/2025 5:42 AM EST [facility] RBC Count 6.17(H) 4.60 - 6.10 10*6/uL LAB HEMATOLOGY METHOD 06/25/2025 5:42 AM EST [facility] HGB 15.1 13.7 - 17.5 g/dL LAB HEMATOLOGY METHOD 06/25/2025 5:42 AM EST [facility] HCT 49.3 40.0 - 51.0 % LAB HEMATOLOGY METHOD 06/25/2025 5:42 AM EST [facility] Platelet Count 81(L) 155 - 369 10*3/uL LAB HEMATOLOGY METHOD 06/25/2025 5:42 AM EST [facility] MCV 80 79 - 98 fL LAB HEMATOLOGY METHOD 06/25/2025 5:42 AM EST [facility] MCH 24.5(L) 26.0 - 32.0 pg LAB HEMATOLOGY METHOD 06/25/2025 5:42 AM EST [facility] MCHC 30.6(L) 30.7 - 35.5 g/dL LAB HEMATOLOGY METHOD 06/25/2025 5:42 AM EST [facility] RDW 30.3(H) 11.5 - 14.5 % LAB HEMATOLOGY METHOD 06/25/2025 5:42 AM EST [facility] MPV LAB HEMATOLOGY METHOD 06/25/2025 5:42 AM EST [facility] Comment:Not Measured nRBC 20.4(H) <=0.0 per 100 WBCs LAB HEMATOLOGY METHOD 06/25/2025 5:42 AM EST [facility] Blood Venous blood specimen / Unknown Venipuncture / Unknown 06/25/2025 4:23 AM EST 06/25/2025 5:00 AM EST us Sherly Malik MD LAB BLOOD ORDERABLES Final Result [facility] [address] [place] [address] * Phosphorus (06/25/2025 4:23 AM EST) Phosphorus, Plasma 2.7 2.5 - 4.5 mg/dL 06/25/2025 5:29 AM EST [facility] Blood Venous blood specimen / Unknown Venipuncture / Unknown 06/25/2025 4:23 AM EST 06/25/2025 4:58 AM EST Sherly Malik MD LAB BLOOD ORDERABLES Final Result [facility] [address] [place] [address] * (ABNORMAL) Hepatic function panel (06/25/2025 4:23 AM EST) Pathologist [facility] Direct Bilirubin, Plasma 1.0(H) <=0.3 mg/dL 06/25/2025 5:29 AM EST [facility] Comment:Hemolyzed, result ma y be falsely decreased. Alkaline Phosphatase, Plasma 498(H) 40 - 115 U/L 06/25/2025 5:29 AM EST [facility] Total Bilirubin, Plasma 1.9(H) 0.2 - 1.1 mg/dL 06/25/2025 5:29 AM EST [facility] Albumin, Plasma 3.3(L) 3.5 - 5.2 g/dL 06/25/2025 5:29 AM EST [facility] Total Protein 6.6 6.3 - 7.9 g/dL 06/25/2025 5:29 AM EST [facility] ALT, Plasma 18 10 - 50 U/L 06/25/2025 5:29 AM EST [facility] AST, Plasma 73(H) 10 - 50 U/L 06/25/2025 5:29 AM EST [facility] Comment:Hemolyzed, result ma y be falsely increased. Blood Venous blood specimen / Unknown Venipuncture / Unknown 06/25/2025 4:23 AM EST 06/25/2025 4:58 AM EST us Viktoria Glynn MD LAB BLOOD ORDERABLES Final Re sult [facility] [address] [place] [address] * (ABNORMAL) Potassium, Whole Blood (06/24/2025 3:59 PM EST) Potassium, Whole Blood 3.2(L) 3.6 - 4.9 mmol/L LAB HEMATOLOGY METHOD 06/24/2025 4:16 PM EST [facility] Blood Venous blood specimen / Unknown Venipuncture / Unknown 06/24/2025 3:59 PM EST 06/24/2025 4:14 PM EST Sherly Malik MD LAB BLOOD ORDERABLES Final Result [facility] [address] [place] [address] * Magnesium (06/24/2025 3:59 PM EST) Pathologist [facility] Magnesium, Plasma 2.1 1.9 - 2.4 mg/dL 06/24/2025 4:42 PM EST [facility] Blood Venous blood specimen / Unknown Venipuncture / Unknown 06/24/2025 3:59 PM EST 06/24/2025 4:14 PM EST Sherly Malik MD LAB BLOOD ORDERABLES Final Result [facility] [address] [place] [address] * (ABNORMAL) Basic metabolic panel (06/24/2025 3:59 PM EST) Glucose, Plasma 123(H) 74 - 99 mg/dL 06/24/2025 4:42 PM EST [facility] BUN, Plasma 75(H) 8 - 23 mg/dL 06/24/2025 4:42 PM EST [facility] Creatinine, Plasma 2.95(H) 0.70 - 1.20 mg/dL 06/24/2025 4:42 PM EST [facility] BUN/Creatinine Ratio 25 06/24/2025 4:42 PM EST [facility] Sodium, Plasma 133(L) 136 - 145 mmol/L 06/24/2025 4:42 PM EST [facility] Potassium, Plasma 4.4 3.6 - 4.9 mmol/L 06/24/2025 4:42 PM EST [facility] Chloride, Plasma 86(L) 97 - 107 mmol/L 06/24/2025 4:42 PM EST [facility] CO2, Plasma 35(H) 22 - 29 mmol/L 06/24/2025 4:42 PM EST [facility] Anion Gap 12 6 - 16 mmol/L 06/24/2025 4:42 PM EST [facility] Total Calcium, Plasma 8.6(L) 8.9 - 10.2 mg/dL 06/24/2025 4:42 PM EST [facility] eGFRcr 21.6 mL/min/1.7 3m*2 06/24/2025 4:42 PM EST [facility] Comment:Reported eGFRcr in m L/min/1.73m2 is based the CKD-EPI 2020 equation that does not use a race coefficient. Blood Venous blood specimen / Unknown Venipuncture / Unknown 06/24/2025 3:59 PM EST 06/24/2025 4:14 PM EST Sherly Malik MD LAB BLOOD ORDERABLES Final Result Performing Organization Address City/[facility]/ZIP Co de Phone Number [facility] [address] [place] [address] * (ABNORMAL) Potassium, Whole Blood (06/24/2025 9:23 AM EST) Potassium, Whole Blood 3.1(L) 3.6 - 4.9 mmol/L LAB HEMATOLOGY METHOD 06/24/2025 9:31 AM EST [facility] Blood Venous blood specimen / Unknown Venipuncture / Unknown 06/24/2025 9:23 AM EST 06/24/2025 9:30 AM EST Sherly Malik MD LAB BLOOD ORDERABLES Final Result Performing Organization Address City/[facility]/ZIP Co de Phone Number [facility] [address] [place] [address] * Magnesium (06/24/2025 9:23 AM EST) Magnesium, Plasma 2.1 1.9 - 2.4 mg/dL 06/24/2025 9:59 AM EST [facility] Blood Venous blood specimen / Unknown Venipuncture / Unknown 06/24/2025 9:23 AM EST 06/24/2025 9:30 AM EST us Sherly Malik MD LAB BLOOD ORDERABLES Final Result [facility] [address] [place] [address] * (ABNORMAL) Basic metabolic panel (06/24/2025 9:23 AM EST) Glucose, Plasma 142(H) 74 - 99 mg/dL 06/24/2025 9:59 AM EST [facility] BUN, Plasma 77(H) 8 - 23 mg/dL 06/24/2025 9:59 AM EST [facility] Creatinine, Plasma 2.91(H) 0.70 - 1.20 mg/dL 06/24/2025 9:59 AM EST [facility] BUN/Creatinine Ratio 26 06/24/2025 9:59 AM EST [facility] Sodium, Plasma 135(L) 136 - 145 mmol/L 06/24/2025 9:59 AM EST [facility] Potassium, Plasma 4.0 3.6 - 4.9 mmol/L 06/24/2025 9:59 AM EST [facility] Chloride, Plasma 84(L) 97 - 107 mmol/L 06/24/2025 9:59 AM EST [facility] CO2, Plasma 35(H) 22 - 29 mmol/L 06/24/2025 9:59 AM EST [facility] Anion Gap 16 6 - 16 mmol/L 06/24/2025 9:59 AM EST [facility] Total Calcium, Plasma 8.9 8.9 - 10.2 mg/dL 06/24/2025 9:59 AM EST [facility] eGFRcr 21.9 mL/min/1.7 3m*2 06/24/2025 9:59 AM EST [facility] Comment:Reported eGFRcr in m L/min/1.73m2 is based the CKD-EPI 2020 equation that does not use a race coefficient. Blood Venous blood specimen / Unknown Venipuncture / Unknown 06/24/2025 9:23 AM EST 06/24/2025 9:30 AM EST us Sherly Malik MD LAB BLOOD ORDERABLES Final Result [facility] [address] [place] [address] * (ABNORMAL) CBC W/O Differential (06/24/2025 2:52 AM EST) WBC Count 78.89(H) 3.70 - 10.30 10*3/uL LAB HEMATOLOGY METHOD 06/24/2025 4:22 AM EST [facility] RBC Count 6.31(H) 4.60 - 6.10 10*6/uL LAB HEMATOLOGY METHOD 06/24/2025 4:22 AM EST [facility] HGB 15.6 13.7 - 17.5 g/dL LAB HEMATOLOGY METHOD 06/24/2025 4:22 AM EST [facility] HCT 50.6 40.0 - 51.0 % LAB HEMATOLOGY METHOD 06/24/2025 4:22 AM EST [facility] Platelet Count 85(L) 155 - 369 10*3/uL LAB HEMATOLOGY METHOD 06/24/2025 4:22 AM EST [facility] MCV 80 79 - 98 fL LAB HEMATOLOGY METHOD 06/24/2025 4:22 AM EST [facility] MCH 24.7(L) 26.0 - 32.0 pg LAB HEMATOLOGY METHOD 06/24/2025 4:22 AM EST [facility] MCHC 30.8 30.7 - 35.5 g/dL LAB HEMATOLOGY METHOD 06/24/2025 4:22 AM EST [facility] RDW 30.5(H) 11.5 - 14.5 % LAB HEMATOLOGY METHOD 06/24/2025 4:22 AM EST [facility] MPV LAB HEMATOLOGY METHOD 06/24/2025 4:22 AM EST [facility] Comment:Not Measured nRBC 20.6(H) <=0.0 per 100 WBCs LAB HEMATOLOGY METHOD 06/24/2025 4:22 AM EST [facility] Blood Venous blood specimen / Unknown Venipuncture / Unknown 06/24/2025 2:52 AM EST 06/24/2025 3:32 AM EST Sherly Malik MD LAB BLOOD ORDERABLES Final Result Performing Organization Address City/[facility]/ZIP Co de Phone Number [facility] [address] [place] [address] * Phosphorus (06/24/2025 2:52 AM EST) Phosphorus, Plasma 2.8 2.5 - 4.5 mg/dL 06/24/2025 4:03 AM EST [facility] Blood Venous blood specimen / Unknown Venipuncture / Unknown 06/24/2025 2:52 AM EST 06/24/2025 3:32 AM EST Sherly Malik MD LAB BLOOD ORDERABLES Final Result Performing Organization Address City/[facility] Co de Phone Number [facility] [address] [place] [address] * (ABNORMAL) Hepatic function panel (06/24/2025 2:52 AM EST) Direct Bilirubin, Plasma 0.8(H) <=0.3 mg/dL 06/24/2025 4:03 AM EST [facility] Comment:Hemolyzed, result ma y be falsely decreased. Alkaline Phosphatase, Plasma 490(H) 40 - 115 U/L 06/24/2025 4:03 AM EST [facility] Total Bilirubin, Plasma 1.9(H) 0.2 - 1.1 mg/dL 06/24/2025 4:03 AM EST [facility] Albumin, Plasma 3.2(L) 3.5 - 5.2 g/dL 06/24/2025 4:03 AM EST [facility] Total Protein 6.3 6.3 - 7.9 g/dL 06/24/2025 4:03 AM EST [facility] ALT, Plasma 19 10 - 50 U/L 06/24/2025 4:03 AM EST [facility] AST, Plasma 74(H) 10 - 50 U/L 06/24/2025 4:03 AM EST [facility] Comment:Hemolyzed, result ma y be falsely increased. Blood Venous blood specimen / Unknown Venipuncture / Unknown 06/24/2025 2:52 AM EST 06/24/2025 3:32 AM EST Viktoria Glynn MD LAB BLOOD ORDERABLES Final Re sult [facility] [address] [place] [address] * (ABNORMAL) Potassium, Whole Blood (06/23/2025 11:56 PM EST) Potassium, Whole Blood 3.3(L) 3.6 - 4.9 mmol/L LAB HEMATOLOGY METHOD 06/24/2025 12:05 AM EST [facility] Blood Venous blood specimen / Unknown Venipuncture / Unknown 06/23/2025 11:56 PM EST 06/24/2025 12:01 AM EST Sherly Malik MD LAB BLOOD ORDERABLES Final Result Performing Organization Address City/[facility]/ZIP Co de Phone Number [facility] [address] [place] [address] * Magnesium (06/23/2025 11:56 PM EST) Magnesium, Plasma 2.2 1.9 - 2.4 mg/dL 06/24/2025 12:32 AM EST [facility] Blood Venous blood specimen / Unknown Venipuncture / Unknown 06/23/2025 11:56 PM EST 06/24/2025 12:01 AM EST Sherly Malik MD LAB BLOOD ORDERABLES Final Result Performing Organization Address City/[facility]/ZIP Co de Phone Number [facility] [address] [place] [address] * (ABNORMAL) Basic metabolic panel (06/23/2025 11:56 PM EST) Glucose, Plasma 117(H) 74 - 99 mg/dL 06/24/2025 12:32 AM EST [facility] BUN, Plasma 78(H) 8 - 23 mg/dL 06/24/2025 12:32 AM EST [facility] Creatinine, Plasma 3.05(H) 0.70 - 1.20 mg/dL 06/24/2025 12:32 AM EST [facility] BUN/Creatinine Ratio 26 06/24/2025 12:32 AM EST [facility] Sodium, Plasma 134(L) 136 - 145 mmol/L 06/24/2025 12:32 AM [facility] Potassium, Plasma 4.7 3.6 - 4.9 mmol/L 06/24/2025 12:32 AM [facility] Comment:Hemolyzed - Potassiu m may be falsely elevated by approximately 0.4-0.7 mmol/L. Chloride, Plasma 84(L) 97 - 107 mmol/L 06/24/2025 12:32 AM EST [facility] CO2, Plasma 37(H) 22 - 29 mmol/L 06/24/2025 12:32 AM [facility] Anion Gap 13 6 - 16 mmol/L 06/24/2025 12:32 AM [facility] Total Calcium, Plasma 8.7(L) 8.9 - 10.2 mg/dL 06/24/2025 12:32 AM [facility] eGFRcr 20.7 mL/min/1. 73m*2 06/24/2025 12:32 AM EST [facility] Comment:Reported eGFRcr in m L/min/1.73m2 is based the CKD-EPI 2020 equation that does not use a race coefficient. Blood Venous blood specimen / Unknown Venipuncture / Unknown 06/23/2025 11:56 PM EST 06/24/2025 12:01 AM EST us Sherly Malik MD LAB BLOOD ORDERABLES Final Result [facility] [address] [place] [address] * ECG Adult (06/23/2025 9:12 PM EST) EKG DIAGNOSIS CLASS Borderline Abnormal MUSE ECG Ventricular Rate 77 BPM MUSE ECG Atrial Rate 77 BPM MUSE ECG WA Interval 160 ms MUSE ECG QRSD Interval 106 ms MUSE ECG QT Interval 420 ms MUSE ECG QTC Interval 475 ms MUSE ECG P Bliss 51 degrees MUSE ECG R Bliss 59 degrees MUSE ECG T Wave Bliss 28 degrees MUSE ECG Diagnosis Sinus rhythm with premature atrial complexes MUSE ECG Diagnosis Incomplete right bundle branch block MUSE ECG Diagnosis Borderline ECG MUSE ECG Diagnosis Compared to last ECG MUSE ECG Diagnosis No significant change was found MUSE ECG Diagnosis Confirmed by Eyal Wallace ([id number]) on 06/25/2025 8:19:52 PM MUSE ECG 06/23/2025 9:12 PM EST 06/25/2025 8:19 PM EST us Sherly Malik MD ECG ORDERABLES Final Resu lt MUSE ECG * (ABNORMAL) Basic metabolic panel (06/23/2025 8:58 PM EST) Glucose, Plasma 107(H) 74 - 99 mg/dL 06/23/2025 10:25 PM EST [facility] BUN, Plasma 73(H) 8 - 23 mg/dL 06/23/2025 10:25 PM EST [facility] Creatinine, Plasma 2.96(H) 0.70 - 1.20 mg/dL 06/23/2025 10:25 PM EST [facility] BUN/Creatinine Ratio 06/23/2025 10:25 PM EST [facility] Sodium, Plasma 133(L) 136 - 145 mmol/L 06/23/2025 10:25 PM EST [facility] Potassium, Plasma 5.9(H) 3.6 - 4.9 mmol/L 06/23/2025 10:25 PM EST [facility] Comment:Hemolyzed - Potassiu m may be falsely elevated by approximately 0.8-1.7 mmol/L. Chloride, Plasma 83(L) 97 - 107 mmol/L 06/23/2025 10:25 PM EST [facility] CO2, Plasma 34(H) 22 - 29 mmol/L 06/23/2025 10:25 PM EST [facility] Anion Gap 16 6 - 16 mmol/L 06/23/2025 10:25 PM EST [facility] Total Calcium, Plasma 8.6(L) 8.9 - 10.2 mg/dL 06/23/2025 10:25 PM EST [facility] eGFRcr 21.5 mL/min/1. 73m*2 06/23/2025 10:25 PM EST [facility] Comment:Reported eGFRcr in m L/min/1.73m2 is based the CKD-EPI 2020 equation that does not use a race coefficient. Blood Venous blood specimen / Unknown Venipuncture / Unknown 06/23/2025 8:58 PM EST 06/23/2025 9:57 PM EST Sherly Malik MD LAB BLOOD ORDERABLES Final Result [facility] [address] [place] [address] * Magnesium (06/23/2025 8:57 PM EST) Magnesium, Plasma 2.3 1.9 - 2.4 mg/dL 06/23/2025 10:26 PM EST [facility] Blood Venous blood specimen / Unknown Venipuncture / Unknown 06/23/2025 8:57 PM EST 06/23/2025 9:57 PM EST Sherly Malik MD LAB BLOOD ORDERABLES Final Result [facility] [address] [place] [address] * (ABNORMAL) Potassium, Whole Blood (06/23/2025 4:54 PM EST) Potassium, Whole Blood 3.5(L) 3.6 - 4.9 mmol/L LAB HEMATOLOGY METHOD 06/23/2025 5:05 PM EST [facility] Blood Venous blood specimen / Unknown Venipuncture / Unknown 06/23/2025 4:54 PM EST 06/23/2025 5:03 PM EST us Sherly Malik MD LAB BLOOD ORDERABLES Final Result Performing Organization Address City/[facility]/ZIP Co de Phone Number [facility] [address] [place] [address] * Magnesium (06/23/2025 4:54 PM EST) Magnesium, Plasma 2.3 1.9 - 2.4 mg/dL 06/23/2025 5:42 PM EST [facility] Blood Venous blood specimen / Unknown Venipuncture / Unknown 06/23/2025 4:54 PM EST 06/23/2025 5:12 PM EST Sherly Malik MD LAB BLOOD ORDERABLES Final Result Performing Organization Address [facility]/ZIP Co de Phone Number [facility] [address] [place] [address] * (ABNORMAL) Basic metabolic panel (06/23/2025 4:54 PM EST) Glucose, Plasma 125(H) 74 - 99 mg/dL 06/23/2025 5:42 PM EST [facility] BUN, Plasma 73(H) 8 - 23 mg/dL 06/23/2025 5:42 PM EST [facility] Creatinine, Plasma 2.92(H) 0.70 - 1.20 mg/dL 06/23/2025 5:42 PM EST [facility] BUN/Creatinine Ratio 25 06/23/2025 5:42 PM EST [facility] Sodium, Plasma 133(L) 136 - 145 mmol/L 06/23/2025 5:42 PM EST [facility] Potassium, Plasma 4.4 3.6 - 4.9 mmol/L 06/23/2025 5:42 PM EST [facility] Comment:Hemolyzed - Potassiu m may be falsely elevated by approximately 0.4-0.7 mmol/L. Chloride, Plasma 85(L) 97 - 107 mmol/L 06/23/2025 5:42 PM EST [facility] CO2, Plasma 38(H) 22 - 29 mmol/L 06/23/2025 5:42 PM EST [facility] Anion Gap 10 6 - 16 mmol/L 06/23/2025 5:42 PM EST [facility] Total Calcium, Plasma 8.7(L) 8.9 - 10.2 mg/dL 06/23/2025 5:42 PM EST [facility] eGFRcr 21.8 mL/min/1. 73m*2 06/23/2025 5:42 PM EST [facility] Comment:Reported eGFRcr in m L/min/1.73m2 is based the CKD-EPI 2020 equation that does not use a race coefficient. Blood Venous blood specimen / Unknown Venipuncture / Unknown 06/23/2025 4:54 PM EST 06/23/2025 5:12 PM EST Sherly Malik MD LAB BLOOD ORDERABLES Final Result Performing Organization Address City/[facility]/ZIP Co de Phone Number [facility] [address] [place] [address] * (ABNORMAL) Potassium, Whole Blood (06/23/2025 8:16 AM EST) Potassium, Whole Blood 3.3(L) 3.6 - 4.9 mmol/L LAB HEMATOLOGY METHOD 06/23/2025 8:26 AM EST [facility] Blood Venous blood specimen / Unknown Venipuncture / Unknown 06/23/2025 8:16 AM EST 06/23/2025 8:24 AM EST Sherly Malik MD LAB BLOOD ORDERABLES Final Result [facility] [address] [place] [address] * Magnesium (06/23/2025 8:16 AM EST) Magnesium, Plasma 2.4 1.9 - 2.4 mg/dL 06/23/2025 8:52 AM EST [facility] Blood Venous blood specimen / Unknown Venipuncture / Unknown 06/23/2025 8:16 AM EST 06/23/2025 8:24 AM EST Viktoria Glynn MD LAB BLOOD ORDERABLES Final Re sult [facility] [address] [place] [address] * (ABNORMAL) Basic metabolic panel (06/23/2025 8:16 AM EST) Glucose, Plasma 100(H) 74 - 99 mg/dL 06/23/2025 8:52 AM EST [facility] BUN, Plasma 72(H) 8 - 23 mg/dL 06/23/2025 8:52 AM EST [facility] Creatinine, Plasma 3.04(H) 0.70 - 1.20 mg/dL 06/23/2025 8:52 AM EST [facility] BUN/Creatinine Ratio 24 06/23/2025 8:52 AM EST [facility] Sodium, Plasma 136 136 - 145 mmol/L 06/23/2025 8:52 AM EST [facility] Potassium, Plasma 4.0 3.6 - 4.9 mmol/L 06/23/2025 8:52 AM EST [facility] Chloride, Plasma 86(L) 97 - 107 mmol/L 06/23/2025 8:52 AM EST [facility] CO2, Plasma 34(H) 22 - 29 mmol/L 06/23/2025 8:52 AM EST [facility] Anion Gap 16 6 - 16 mmol/L 06/23/2025 8:52 AM EST [facility] Total Calcium, Plasma 8.7(L) 8.9 - 10.2 mg/dL 06/23/2025 8:52 AM EST [facility] eGFRcr 20.8 mL/min/1.7 3m*2 06/23/2025 8:52 AM EST [facility] Comment:Reported eGFRcr in m L/min/1.73m2 is based the CKD-EPI 2020 equation that does not use a race coefficient. Blood Venous blood specimen / Unknown Venipuncture / Unknown 06/23/2025 8:16 AM EST 06/23/2025 8:24 AM EST us Viktoria Glynn MD LAB BLOOD ORDERABLES Final Re sult [facility] [address] [place] [address] * Phosphorus (06/23/2025 4:13 AM EST) Phosphorus, Plasma 3.5 2.5 - 4.5 mg/dL 06/23/2025 5:08 AM EST [facility] Blood Venous blood specimen / Unknown Venipuncture / Unknown 06/23/2025 4:13 AM EST 06/23/2025 4:27 AM EST Sherly Malik MD LAB BLOOD ORDERABLES Final Result Performing Organization Address City/[facility]/ZIP Co de Phone Number [facility] [address] [place] [address] * (ABNORMAL) Hepatic function panel (06/23/2025 4:13 AM EST) Direct Bilirubin, Plasma 0.5(H) <=0.3 mg/dL 06/23/2025 5:08 AM EST [facility] Comment:Hemolyzed, result ma y be falsely decreased. Alkaline Phosphatase, Plasma 435(H) 40 - 115 U/L 06/23/2025 5:08 AM EST [facility] Total Bilirubin, Plasma 1.6(H) 0.2 - 1.1 mg/dL 06/23/2025 5:08 AM EST [facility] Albumin, Plasma 3.2(L) 3.5 - 5.2 g/dL 06/23/2025 5:08 AM EST [facility] Total Protein 6.2(L) 6.3 - 7.9 g/dL 06/23/2025 5:08 AM EST [facility] ALT, Plasma 17 10 - 50 U/L 06/23/2025 5:08 AM EST [facility] AST, Plasma 81(H) 10 - 50 U/L 06/23/2025 5:08 AM EST [facility] Comment:Hemolyzed, result ma y be falsely increased. Blood Venous blood specimen / Unknown Venipuncture / Unknown 06/23/2025 4:13 AM EST 06/23/2025 4:27 AM EST Viktoria Glynn MD LAB BLOOD ORDERABLES Final Re sult [facility] [address] [place] [address] * (ABNORMAL) Urinalysis with reflex microscopic (Culture NOT Included) (06/23/2025 12:55 AM EST) Color, Urine Yellow LAB URINALYSIS - AUTOMATED METHOD 06/23/2025 1:16 AM EST [facility] Clarity, Urine Clear LAB URINALYSIS - AUTOMATED METHOD 06/23/2025 1:16 AM [facility] Spec [place], Urine 1.011 1.005 - 1.030 LAB URINALYSIS - AUTOMATED METHOD 06/23/2025 1:16 AM EST [facility] pH, Urine 6.0 5.0 - 8.0 LAB URINALYSIS - AUTOMATED METHOD 06/23/2025 1:16 AM [facility] Protein, Urine Trace(A) Negative mg/dL LAB URINALYSIS - AUTOMATED METHOD 06/23/2025 1:16 AM [facility] Glucose, Urine Negative Negative mg/dL LAB URINALYSIS - AUTOMATED METHOD 06/23/2025 1:16 AM [facility] Ketones, Urine Negative Negative mg/dL LAB URINALYSIS - AUTOMATED METHOD 06/23/2025 1:16 AM EST [facility] Blood, Urine Negative Negative LAB URINALYSIS - AUTOMATED METHOD 06/23/2025 1:16 AM [facility] Bilirubin, Urine Negative Negative LAB URINALYSIS - AUTOMATED METHOD 06/23/2025 1:16 AM [facility] Urobilinogen, Urine 1.0 0.2 to 1.0 mg/dL LAB URINALYSIS - AUTOMATED METHOD 06/23/2025 1:16 AM [facility] Leukocytes, Urine Negative Negative LAB URINALYSIS - AUTOMATED METHOD 06/23/2025 1:16 AM [facility] Nitrite, Urine Negative Negative LAB URINALYSIS - AUTOMATED METHOD 06/23/2025 1:16 AM EST [facility] Urine Urine specimen obtained by clean catch procedure / Unknown Non-blood Collection / Unknown 06/23/2025 12:55 AM EST 06/23/2025 1:05 AM EST us Sherly Malik MD LAB URINE ORDERABLES Final Result [facility] [address] [place] [address] * (ABNORMAL) CBC W/O Differential (06/23/2025 12:05 AM EST) WBC Count 89.07(HH) 3.70 - 10.30 10*3/uL LAB HEMATOLOGY METHOD 06/23/2025 12:30 AM EST [facility] RBC Count 6.32(H) 4.60 - 6.10 10*6/uL LAB HEMATOLOGY METHOD 06/23/2025 12:30 AM EST [facility] HGB 15.6 13.7 - 17.5 g/dL LAB HEMATOLOGY METHOD 06/23/2025 12:30 AM EST [facility] HCT 50.5 40.0 - 51.0 % LAB HEMATOLOGY METHOD 06/23/2025 12:30 AM EST [facility] Platelet Count 91(L) 155 - 369 10*3/uL LAB HEMATOLOGY METHOD 06/23/2025 12:30 AM EST [facility] MCV 80 79 - 98 fL LAB HEMATOLOGY METHOD 06/23/2025 12:30 AM EST [facility] MCH 24.7(L) 26.0 - 32.0 pg LAB HEMATOLOGY METHOD 06/23/2025 12:30 AM EST [facility] MCHC 30.9 30.7 - 35.5 g/dL LAB HEMATOLOGY METHOD 06/23/2025 12:30 AM EST [facility] RDW 30.6(H) 11.5 - 14.5 % LAB HEMATOLOGY METHOD 06/23/2025 12:30 AM EST [facility] MPV LAB HEMATOLOGY METHOD 06/23/2025 12:30 AM EST [facility] Comment:Not Measured nRBC 15.4(H) <=0.0 per 100 WBCs LAB HEMATOLOGY METHOD 06/23/2025 12:30 AM EST [facility] Blood Venous blood specimen / Unknown Venipuncture / Unknown 06/23/2025 12:05 AM EST 06/23/2025 12:12 AM EST Sherly Malik MD LAB BLOOD ORDERABLES Final Result Performing Organization Address City/[facility]/ZIP Co de Phone Number [facility] [address] [place] [address] * (ABNORMAL) Potassium, Whole Blood (06/23/2025 12:05 AM EST) Potassium, Whole Blood 3.2(L) 3.6 - 4.9 mmol/L LAB HEMATOLOGY METHOD 06/23/2025 12:17 AM EST [facility] Blood Venous blood specimen / Unknown Venipuncture / Unknown 06/23/2025 12:05 AM EST 06/23/2025 12:15 AM EST Sherly Malik MD LAB BLOOD ORDERABLES Final Result Performing Organization Address City/[facility]/ZIP Co de Phone Number [facility] [address] [place] [address] * (ABNORMAL) Magnesium (06/23/2025 12:05 AM EST) Magnesium, Plasma 2.5(H) 1.9 - 2.4 mg/dL 06/23/2025 12:40 AM EST [facility] Blood Venous blood specimen / Unknown Venipuncture / Unknown 06/23/2025 12:05 AM EST 06/23/2025 12:11 AM EST Viktoria Glynn MD LAB BLOOD ORDERABLES Final Re sult Performing Organization Address City/[facility]/ZIP Co de Phone Number [facility] [address] [place] [address] * (ABNORMAL) Basic metabolic panel (06/23/2025 12:05 AM EST) Glucose, Plasma 141(H) 74 - 99 mg/dL 06/23/2025 12:40 AM EST [facility] BUN, Plasma 73(H) 8 - 23 mg/dL 06/23/2025 12:40 AM EST [facility] Creatinine, Plasma 3.07(H) 0.70 - 1.20 mg/dL 06/23/2025 12:40 AM EST [facility] BUN/Creatinine Ratio 24 06/23/2025 12:40 AM EST [facility] Sodium, Plasma 135(L) 136 - 145 mmol/L 06/23/2025 12:40 AM EST [facility] Potassium, Plasma 4.3 3.6 - 4.9 mmol/L 06/23/2025 12:40 AM EST [facility] Comment:Hemolyzed - Potassiu m may be falsely elevated by approximately 0.4-0.7 mmol/L. Chloride, Plasma 86(L) 97 - 107 mmol/L 06/23/2025 12:40 AM EST [facility] CO2, Plasma 35(H) 22 - 29 mmol/L 06/23/2025 12:40 AM EST [facility] Anion Gap 14 6 - 16 mmol/L 06/23/2025 12:40 AM EST [facility] Total Calcium, Plasma 8.6(L) 8.9 - 10.2 mg/dL 06/23/2025 12:40 AM EST [facility] eGFRcr 20.6 mL/min/1. 73m*2 06/23/2025 12:40 AM EST [facility] Comment:Reported eGFRcr in m L/min/1.73m2 is based the CKD-EPI 2020 equation that does not use a race coefficient. Blood Venous blood specimen / Unknown Venipuncture / Unknown 06/23/2025 12:05 AM EST 06/23/2025 12:11 AM EST Viktoria Glynn MD LAB BLOOD ORDERABLES Final Re sult [facility] [address] [place] [address] * Potassium, Whole Blood (06/22/2025 5:08 PM EST) Potassium, Whole Blood 3.6 3.6 - 4.9 mmol/L LAB HEMATOLOGY METHOD 06/22/2025 5:15 PM EST [facility] Blood Venous blood specimen / Unknown Venipuncture / Unknown 06/22/2025 5:08 PM EST 06/22/2025 5:13 PM EST us Sherly Malik MD LAB BLOOD ORDERABLES Final Result Performing Organization Address [facility]/ZIP Co de Phone Number [facility] [address] [place] [address] * (ABNORMAL) Magnesium (06/22/2025 4:35 PM EST) Magnesium, Plasma 2.7(H) 1.9 - 2.4 mg/dL 06/22/2025 5:15 PM EST [facility] Blood Venous blood specimen / Unknown Venipuncture / Unknown 06/22/2025 4:35 PM EST 06/22/2025 4:42 PM EST us Viktoria Glynn MD LAB BLOOD ORDERABLES Final Re sult [facility] [address] [place] [address] * (ABNORMAL) Basic metabolic panel (06/22/2025 4:35 PM EST) Glucose, Plasma 92 74 - 99 mg/dL 06/22/2025 5:15 PM EST [facility] BUN, Plasma 68(H) 8 - 23 mg/dL 06/22/2025 5:15 PM EST [facility] Creatinine, Plasma 2.94(H) 0.70 - 1.20 mg/dL 06/22/2025 5:15 PM EST [facility] BUN/Creatinine Ratio 23 06/22/2025 5:15 PM EST [facility] Sodium, Plasma 134(L) 136 - 145 mmol/L 06/22/2025 5:15 PM EST [facility] Potassium, Plasma 4.7 3.6 - 4.9 mmol/L 06/22/2025 5:15 PM EST [facility] Comment:Hemolyzed - Potassiu m may be falsely elevated by approximately 0.4-0.7 mmol/L. Chloride, Plasma 86(L) 97 - 107 mmol/L 06/22/2025 5:15 PM EST [facility] CO2, Plasma 35(H) 22 - 29 mmol/L 06/22/2025 5:15 PM EST [facility] Anion Gap 13 6 - 16 mmol/L 06/22/2025 5:15 PM EST [facility] Total Calcium, Plasma 8.9 8.9 - 10.2 mg/dL 06/22/2025 5:15 PM EST [facility] eGFRcr 21.7 mL/min/1. 73m*2 06/22/2025 5:15 PM EST [facility] Comment:Reported eGFRcr in m L/min/1.73m2 is based the CKD-EPI 2020 equation that does not use a race coefficient. Blood Venous blood specimen / Unknown Venipuncture / Unknown 06/22/2025 4:35 PM EST 06/22/2025 4:42 PM EST Viktoria Glynn MD LAB BLOOD ORDERABLES Final Re sult [facility] [address] [place] [address] * (ABNORMAL) Potassium, Whole Blood (06/22/2025 8:42 AM EST) Potassium, Whole Blood 2.7(L) 3.6 - 4.9 mmol/L LAB HEMATOLOGY METHOD 06/22/2025 8:48 AM EST [facility] Blood Venous blood specimen / Unknown Venipuncture / Unknown 06/22/2025 8:42 AM EST 06/22/2025 8:47 AM EST Sherly Malik MD LAB BLOOD ORDERABLES Final Result [facility] [address] [place] [address] * (ABNORMAL) Magnesium (06/22/2025 8:42 AM EST) Magnesium, Plasma 1.8(L) 1.9 - 2.4 mg/dL 06/22/2025 9:17 AM EST [facility] Blood Venous blood specimen / Unknown Venipuncture / Unknown 06/22/2025 8:42 AM EST 06/22/2025 8:47 AM EST us Viktoria Glynn MD LAB BLOOD ORDERABLES Final Re sult [facility] [address] [place] [address] * (ABNORMAL) Basic metabolic panel (06/22/2025 8:42 AM EST) Glucose, Plasma 128(H) 74 - 99 mg/dL 06/22/2025 9:17 AM EST [facility] BUN, Plasma 68(H) 8 - 23 mg/dL 06/22/2025 9:17 AM EST [facility] Creatinine, Plasma 2.98(H) 0.70 - 1.20 mg/dL 06/22/2025 9:17 AM EST [facility] BUN/Creatinine Ratio 23 06/22/2025 9:17 AM EST [facility] Sodium, Plasma 135(L) 136 - 145 mmol/L 06/22/2025 9:17 AM EST [facility] Potassium, Plasma 3.9 3.6 - 4.9 mmol/L 06/22/2025 9:17 AM EST [facility] Comment:Hemolyzed - Potassiu m may be falsely elevated by approximately 0.4-0.7 mmol/L. Chloride, Plasma 87(L) 97 - 107 mmol/L 06/22/2025 9:17 AM EST [facility] CO2, Plasma 34(H) 22 - 29 mmol/L 06/22/2025 9:17 AM EST [facility] Anion Gap 14 6 - 16 mmol/L 06/22/2025 9:17 AM EST [facility] Total Calcium, Plasma 8.8(L) 8.9 - 10.2 mg/dL 06/22/2025 9:17 AM EST [facility] eGFRcr 21.3 mL/min/1. 73m*2 06/22/2025 9:17 AM EST [facility] Comment:Reported eGFRcr in m L/min/1.73m2 is based the CKD-EPI 2020 equation that does not use a race coefficient. Blood Venous blood specimen / Unknown Venipuncture / Unknown 06/22/2025 8:42 AM EST 06/22/2025 8:47 AM EST Viktoria Glynn MD LAB BLOOD ORDERABLES Final Re sult [facility] [address] [place] [address] * (ABNORMAL) CBC W/O Differential (06/22/2025 12:10 AM EST) WBC Count 88.77(HH) 3.70 - 10.30 10*3/uL LAB HEMATOLOGY METHOD 06/22/2025 1:40 AM EST [facility] RBC Count 6.38(H) 4.60 - 6.10 10*6/uL LAB HEMATOLOGY METHOD 06/22/2025 1:40 AM EST [facility] HGB 15.7 13.7 - 17.5 g/dL LAB HEMATOLOGY METHOD 06/22/2025 1:40 AM EST [facility] HCT 50.1 40.0 - 51.0 % LAB HEMATOLOGY METHOD 06/22/2025 1:40 AM EST [facility] Platelet Count 82(L) 155 - 369 10*3/uL LAB HEMATOLOGY METHOD 06/22/2025 1:40 AM EST [facility] MCV 79 79 - 98 fL LAB HEMATOLOGY METHOD 06/22/2025 1:40 AM EST [facility] MCH 24.6(L) 26.0 - 32.0 pg LAB HEMATOLOGY METHOD 06/22/2025 1:40 AM EST [facility] MCHC 31.3 30.7 - 35.5 g/dL LAB HEMATOLOGY METHOD 06/22/2025 1:40 AM EST [facility] RDW 30.7(H) 11.5 - 14.5 % LAB HEMATOLOGY METHOD 06/22/2025 1:40 AM EST [facility] MPV LAB HEMATOLOGY METHOD 06/22/2025 1:40 AM EST [facility] Comment:Not Measured nRBC 14.8(H) <=0.0 per 100 WBCs LAB HEMATOLOGY METHOD 06/22/2025 1:40 AM EST [facility] Blood Venous blood specimen / Unknown Venipuncture / Unknown 06/22/2025 12:10 AM EST 06/22/2025 12:18 AM EST Sherly Malik MD LAB BLOOD ORDERABLES Final Result [facility] [address] [place] [address] * Phosphorus (06/22/2025 12:10 AM EST) Phosphorus, Plasma 3.8 2.5 - 4.5 mg/dL 06/22/2025 1:01 AM EST [facility] Blood Venous blood specimen / Unknown Venipuncture / Unknown 06/22/2025 12:10 AM EST 06/22/2025 12:18 AM EST us Sherly Malik MD LAB BLOOD ORDERABLES Final Result Performing Organization Address City/[facility]/ZIP Co de Phone Number [facility] [address] [place] [address] * (ABNORMAL) Potassium, Whole Blood (06/22/2025 12:10 AM EST) Potassium, Whole Blood 2.8(L) 3.6 - 4.9 mmol/L LAB HEMATOLOGY METHOD 06/22/2025 12:21 AM EST [facility] Blood Venous blood specimen / Unknown Venipuncture / Unknown 06/22/2025 12:10 AM EST 06/22/2025 12:17 AM EST us Sherly Malik MD LAB BLOOD ORDERABLES Final Result Performing Organization Address City/[facility]/ZIP Co de Phone Number [facility] [address] [place] [address] * Magnesium (06/22/2025 12:10 AM EST) Magnesium, Plasma 1.9 1.9 - 2.4 mg/dL 06/22/2025 1:01 AM EST [facility] Blood Venous blood specimen / Unknown Venipuncture / Unknown 06/22/2025 12:10 AM EST 06/22/2025 12:18 AM EST us Viktoria Glynn MD LAB BLOOD ORDERABLES Final Re sult [facility] [address] [place] [address] * (ABNORMAL) Basic metabolic panel (06/22/2025 12:10 AM EST) Glucose, Plasma 103(H) 74 - 99 mg/dL 06/22/2025 1:01 AM EST [facility] BUN, Plasma 68(H) 8 - 23 mg/dL 06/22/2025 1:01 AM EST [facility] Creatinine, Plasma 3.07(H) 0.70 - 1.20 mg/dL 06/22/2025 1:01 AM EST [facility] BUN/Creatinine Ratio 22 06/22/2025 1:01 AM EST [facility] Sodium, Plasma 135(L) 136 - 145 mmol/L 06/22/2025 1:01 AM EST [facility] Potassium, Plasma 4.1 3.6 - 4.9 mmol/L 06/22/2025 1:01 AM EST [facility] Chloride, Plasma 88(L) 97 - 107 mmol/L 06/22/2025 1:01 AM EST [facility] CO2, Plasma 34(H) 22 - 29 mmol/L 06/22/2025 1:01 AM EST [facility] Anion Gap 13 6 - 16 mmol/L 06/22/2025 1:01 AM EST [facility] Total Calcium, Plasma 8.4(L) 8.9 - 10.2 mg/dL 06/22/2025 1:01 AM EST [facility] eGFRcr 20.6 mL/min/1.7 3m*2 06/22/2025 1:01 AM EST [facility] Comment:Reported eGFRcr in m L/min/1.73m2 is based the CKD-EPI 2020 equation that does not use a race coefficient. Blood Venous blood specimen / Unknown Venipuncture / Unknown 06/22/2025 12:10 AM EST 06/22/2025 12:18 AM EST Viktoria Glynn MD LAB BLOOD ORDERABLES Final Re sult [facility] [address] [place] [address] * (ABNORMAL) Hepatic function panel (06/22/2025 12:10 AM EST) Direct Bilirubin, Plasma 0.8(H) <=0.3 mg/dL 06/22/2025 1:01 AM EST [facility] Comment:Hemolyzed, result ma y be falsely decreased. Alkaline Phosphatase, Plasma 404(H) 40 - 115 U/L 06/22/2025 1:01 AM EST [facility] Total Bilirubin, Plasma 1.6(H) 0.2 - 1.1 mg/dL 06/22/2025 1:01 AM EST [facility] Albumin, Plasma 3.2(L) 3.5 - 5.2 g/dL 06/22/2025 1:01 AM EST [facility] Total Protein 6.0(L) 6.3 - 7.9 g/dL 06/22/2025 1:01 AM EST [facility] ALT, Plasma 17 10 - 50 U/L 06/22/2025 1:01 AM EST [facility] AST, Plasma 56(H) 10 - 50 U/L 06/22/2025 1:01 AM EST [facility] Comment:Hemolyzed, result ma y be falsely increased. Blood Venous blood specimen / Unknown Venipuncture / Unknown 06/22/2025 12:10 AM EST 06/22/2025 12:18 AM EST Viktoria Glynn MD LAB BLOOD ORDERABLES Final Re sult [facility] [address] [place] [address] * Lactate, venous (06/22/2025 12:10 AM EST) Lactate, Venous, Whole Blood 1.8 0.5 - 2.2 mmol/L LAB HEMATOLOGY METHOD 06/22/2025 12:21 AM EST [facility] Blood Venous blood specimen / Unknown Venipuncture / Unknown 06/22/2025 12:10 AM EST 06/22/2025 12:17 AM EST Viktoria Glynn MD LAB BLOOD ORDERABLES Final Re sult [facility] [address] [place] [address] * Light Green Top (06/21/2025 4:14 PM EST) Pathologist [facility] Extra Hold for add-ons 06/21/2025 7:01 PM EST [facility] Comment:Auto resulted. Blood Venous blood specimen / Unknown 06/21/2025 4:14 PM EST 06/21/2025 4:52 PM EST Sherly Malik MD LAB BLOOD ORDERABLES Final Result Performing Organization Address [facility]/ZIP Co de Phone Number [facility] [address] [place] [address] * (ABNORMAL) Potassium, Whole Blood (06/21/2025 4:14 PM EST) Pathologist [facility] Potassium, Whole Blood 2.4(LL) 3.6 - 4.9 mmol/L LAB HEMATOLOGY METHOD 06/21/2025 4:31 PM EST [facility] Blood Venous blood specimen / Unknown Venipuncture / Unknown 06/21/2025 4:14 PM EST 06/21/2025 4:22 PM EST Viktoria Glynn MD LAB BLOOD ORDERABLES Final Re sult Performing Organization Address City/[facility]/ZIP Co de Phone Number [facility] [address] [place] [address] * Magnesium (06/21/2025 4:14 PM EST) Magnesium, Plasma 2.0 1.9 - 2.4 mg/dL 06/21/2025 5:14 PM EST [facility] Blood Venous blood specimen / Unknown Venipuncture / Unknown 06/21/2025 4:14 PM EST 06/21/2025 4:23 PM EST Viktoria Glynn MD LAB BLOOD ORDERABLES Final Re sult [facility] [address] [place] [address] * (ABNORMAL) Basic metabolic panel (06/21/2025 4:14 PM EST) Glucose, Plasma 108(H) 74 - 99 mg/dL 06/21/2025 5:14 PM EST [facility] BUN, Plasma 68(H) 8 - 23 mg/dL 06/21/2025 5:14 PM EST [facility] Creatinine, Plasma 3.04(H) 0.70 - 1.20 mg/dL 06/21/2025 5:14 PM EST [facility] BUN/Creatinine Ratio 22 06/21/2025 5:14 PM EST [facility] Sodium, Plasma 136 136 - 145 mmol/L 06/21/2025 5:14 PM EST [facility] Potassium, Plasma 3.4(L) 3.6 - 4.9 mmol/L 06/21/2025 5:14 PM EST [facility] Comment:Hemolyzed - Potassiu m may be falsely elevated by approximately 0.4-0.7 mmol/L. Chloride, Plasma 87(L) 97 - 107 mmol/L 06/21/2025 5:14 PM EST [facility] CO2, Plasma 33(H) 22 - 29 mmol/L 06/21/2025 5:14 PM EST [facility] Anion Gap 16 6 - 16 mmol/L 06/21/2025 5:14 PM EST [facility] Total Calcium, Plasma 8.8(L) 8.9 - 10.2 mg/dL 06/21/2025 5:14 PM EST [facility] eGFRcr 20.8 mL/min/1. 73m*2 06/21/2025 5:14 PM EST [facility] Comment:Reported eGFRcr in m L/min/1.73m2 is based the CKD-EPI 2020 equation that does not use a race coefficient. Blood Venous blood specimen / Unknown Venipuncture / Unknown 06/21/2025 4:14 PM EST 06/21/2025 4:23 PM EST Viktoria Glynn MD LAB BLOOD ORDERABLES Final Re sult Performing Organization Address [facility] Co de Phone Number [facility] [address] [place] [address] * Magnesium (06/21/2025 12:09 PM EST) Magnesium, Plasma 2.0 1.9 - 2.4 mg/dL 06/21/2025 12:43 PM EST [facility] Blood Venous blood specimen / Unknown Venipuncture / Unknown 06/21/2025 12:09 PM EST 06/21/2025 12:14 PM EST Viktoria Glynn MD LAB BLOOD ORDERABLES Final Re sult Performing Organization Address [facility] de Phone Number [facility] [address] [place] [address] * (ABNORMAL) Basic metabolic panel (06/21/2025 12:09 PM EST) Glucose, Plasma 135(H) 74 - 99 mg/dL 06/21/2025 12:43 PM EST [facility] BUN, Plasma 66(H) 8 - 23 mg/dL 06/21/2025 12:43 PM EST [facility] Creatinine, Plasma 2.96(H) 0.70 - 1.20 mg/dL 06/21/2025 12:43 PM EST [facility] BUN/Creatinine Ratio 06/21/2025 12:43 PM EST [facility] Sodium, Plasma 134(L) 136 - 145 mmol/L 06/21/2025 12:43 PM EST [facility] Potassium, Plasma 4.5 3.6 - 4.9 mmol/L 06/21/2025 12:43 PM EST [facility] Comment:Hemolyzed - Potassiu m may be falsely elevated by approximately 0.4-0.7 mmol/L. Chloride, Plasma 88(L) 97 - 107 mmol/L 06/21/2025 12:43 PM EST [facility] CO2, Plasma 31(H) 22 - 29 mmol/L 06/21/2025 12:43 PM EST [facility] Anion Gap 15 6 - 16 mmol/L 06/21/2025 12:43 PM EST [facility] Total Calcium, Plasma 8.9 8.9 - 10.2 mg/dL 06/21/2025 12:43 PM EST [facility] eGFRcr 21.5 mL/min/1. 73m*2 06/21/2025 12:43 PM EST [facility] Comment:Reported eGFRcr in m L/min/1.73m2 is based the CKD-EPI 2020 equation that does not use a race coefficient. Blood Venous blood specimen / Unknown Venipuncture / Unknown 06/21/2025 12:09 PM EST 06/21/2025 12:14 PM EST Viktoria Glynn MD LAB BLOOD ORDERABLES Final Re sult Performing Organization Address City/[facility]/ZIP Co de Phone Number [facility] [address] [place] [address] * Magnesium (06/21/2025 7:21 AM EST) Magnesium, Plasma 2.0 1.9 - 2.4 mg/dL 06/21/2025 8:31 AM EST [facility] Blood Venous blood specimen / Unknown Venipuncture / Unknown 06/21/2025 7:21 AM EST 06/21/2025 7:30 AM EST Viktoria Glynn MD LAB BLOOD ORDERABLES Final Re sult Performing Organization Address City/[facility]/ZIP Co de Phone Number [facility] [address] [place] [address] * (ABNORMAL) CBC W/O Differential (06/21/2025 7:21 AM EST) WBC Count 89.06(HH) 3.70 - 10.30 10*3/uL LAB HEMATOLOGY METHOD 06/21/2025 9:55 AM EST [facility] RBC Count 6.67(H) 4.60 - 6.10 10*6/uL LAB HEMATOLOGY METHOD 06/21/2025 9:55 AM EST [facility] HGB 16.6 13.7 - 17.5 g/dL LAB HEMATOLOGY METHOD 06/21/2025 9:55 AM EST [facility] HCT 53.0(H) 40.0 - 51.0 % LAB HEMATOLOGY METHOD 06/21/2025 9:55 AM EST [facility] Platelet Count LAB HEMATOLOGY METHOD 06/21/2025 9:55 AM EST [facility] Comment:Interfering substanc e present, platelets appear decreased. Recollect recommended. MCV 80 79 - 98 fL LAB HEMATOLOGY METHOD 06/21/2025 9:55 AM EST [facility] MCH 24.9(L) 26.0 - 32.0 pg LAB HEMATOLOGY METHOD 06/21/2025 9:55 AM EST [facility] MCHC 31.3 30.7 - 35.5 g/dL LAB HEMATOLOGY METHOD 06/21/2025 9:55 AM EST [facility] RDW 30.8(H) 11.5 - 14.5 % LAB HEMATOLOGY METHOD 06/21/2025 9:55 AM EST [facility] MPV LAB HEMATOLOGY METHOD 06/21/2025 9:55 AM EST [facility] Comment:Not Measured nRBC 13.3(H) <=0.0 per 100 WBCs LAB HEMATOLOGY METHOD 06/21/2025 9:55 AM EST [facility] Blood Venous blood specimen / Unknown Venipuncture / Unknown 06/21/2025 7:21 AM EST 06/21/2025 7:30 AM EST us Viktoria Glynn MD LAB BLOOD ORDERABLES Final Re sult [facility] [address] [place] [address] * (ABNORMAL) Renal function panel (06/21/2025 7:21 AM EST) [facility] Glucose, Plasma 82 74 - 99 mg/dL 06/21/2025 8:31 AM [facility] BUN, Plasma 67(H) 8 - 23 mg/dL 06/21/2025 8:31 AM [facility] Creatinine, Plasma 3.04(H) 0.70 - 1.20 mg/dL 06/21/2025 8:31 AM [facility] BUN/Creatinine Ratio 22 06/21/2025 8:31 AM [facility] Sodium, Plasma 132(L) 136 - 145 mmol/L 06/21/2025 8:31 AM [facility] Potassium, Plasma 5.5(H) 3.6 - 4.9 mmol/L 06/21/2025 8:31 AM [facility] Comment:Hemolyzed - Potassiu m may be falsely elevated by approximately 0.8-1.7 mmol/L. Chloride, Plasma 88(L) 97 - 107 mmol/L 06/21/2025 8:31 AM [facility] CO2, Plasma 27 22 - 29 mmol/L 06/21/2025 8:31 AM [facility] Anion Gap 17(H) 6 - 16 mmol/L 06/21/2025 8:31 AM [facility] Total Calcium, Plasma 8.8(L) 8.9 - 10.2 mg/dL 06/21/2025 8:31 AM [facility] Phosphorus, Plasma 4.3 2.5 - 4.5 mg/dL 06/21/2025 8:31 AM [facility] Albumin, Plasma 3.2(L) 3.5 - 5.2 g/dL 06/21/2025 8:31 AM [facility] eGFRcr 20.8 mL/min/1. 73m*2 06/21/2025 8:31 AM [facility] Comment:Reported eGFRcr in m L/min/1.73m2 is based the CKD-EPI 2020 equation that does not use a race coefficient. Blood Venous blood specimen / Unknown Venipuncture / Unknown 06/21/2025 7:21 AM EST 06/21/2025 7:30 AM EST Viktoria Glynn MD LAB BLOOD ORDERABLES Final Re sult Performing Organization Address City/[facility]/ZIP Co de Phone Number [facility] [address] [place] [address] * Lactate, venous (06/21/2025 5:36 AM EST) Lactate, Venous, Whole Blood 1.6 0.5 - 2.2 mmol/L LAB HEMATOLOGY METHOD 06/21/2025 5:44 AM EST [facility] Blood Venous blood specimen / Unknown Venipuncture / Unknown 06/21/2025 5:36 AM EST 06/21/2025 5:43 AM EST Viktoria Glynn MD LAB BLOOD ORDERABLES Final Re sult Performing Organization Address [facility] Co de Phone Number [facility] [address] [place] [address] * ECG Adult (06/20/2025 11:32 PM EST) EKG DIAGNOSIS CLASS Abnormal MUSE ECG Ventricular Rate 77 BPM MUSE ECG QRSD Interval 108 ms MUSE ECG QT Interval 426 ms MUSE ECG QTC Interval 482 ms MUSE ECG R Bliss 66 degrees MUSE ECG T Wave Bliss 32 degrees MUSE ECG Diagnosis Sinus rhythm with occasional premature ventricular complexes MUSE ECG Diagnosis Incomplete right bundle branch block MUSE ECG Diagnosis Cannot rule out Anterior infarct , age undetermined MUSE ECG Diagnosis QTcB >= 480 msec MUSE ECG Diagnosis Abnormal ECG MUSE ECG Diagnosis MUSE ECG Diagnosis Confirmed by Julio Oates ([id number]) on 06/22/2025 6:43:12 AM MUSE ECG 06/20/2025 11:3 2 PM EST 06/22/2025 6:43 AM EST Viktoria Glynn MD ECG ORDERABLES Final Result Performing Organization Address [facility] Co de Phone Number MUSE ECG * Magnesium (06/20/2025 9:00 PM EST) Magnesium, Plasma 1.9 1.9 - 2.4 mg/dL 06/21/2025 12:01 AM [facility] Blood Venous blood specimen / Unknown Venipuncture / Unknown 06/20/2025 9:00 PM EST 06/20/2025 9:09 PM EST us Viktoria Glynn MD LAB BLOOD ORDERABLES Final Re sult [facility] [address] [place] [address] * (ABNORMAL) Basic metabolic panel (06/20/2025 9:00 PM EST) Glucose, Plasma 100(H) 74 - 99 mg/dL 06/21/2025 12:01 AM [facility] BUN, Plasma 69(H) 8 - 23 mg/dL 06/21/2025 12:01 AM [facility] Creatinine, Plasma 3.23(H) 0.70 - 1.20 mg/dL 06/21/2025 12:01 AM [facility] BUN/Creatinine Ratio 21 06/21/2025 12:01 AM [facility] Sodium, Plasma 136 136 - 145 mmol/L 06/21/2025 12:01 AM [facility] Potassium, Plasma 4.6 3.6 - 4.9 mmol/L 06/21/2025 12:01 AM [facility] Comment:Hemolyzed - Potassiu m may be falsely elevated by approximately 0.4-0.7 mmol/L. Chloride, Plasma 92(L) 97 - 107 mmol/L 06/21/2025 12:01 AM [facility] CO2, Plasma 22 22 - 29 mmol/L 06/21/2025 12:01 AM [facility] Anion Gap 22(H) 6 - 16 mmol/L 06/21/2025 12:01 AM [facility] Total Calcium, Plasma 8.3(L) 8.9 - 10.2 mg/dL 06/21/2025 12:01 AM [facility] eGFRcr 19.3 mL/min/1. 73m*2 06/21/2025 12:01 AM [facility] Comment:Reported eGFRcr in m L/min/1.73m2 is based the CKD-EPI 2020 equation that does not use a race coefficient. Blood Venous blood specimen / Unknown Venipuncture / Unknown 06/20/2025 9:00 PM EST 06/20/2025 9:09 PM EST Viktoria Glynn MD LAB BLOOD ORDERABLES Final Re sult Performing Organization Address [facility] de Phone Number [facility] [address] [place] [address] * (ABNORMAL) Hepatic function panel (06/20/2025 9:00 PM EST) Direct Bilirubin, Plasma 0.5(H) <=0.3 mg/dL 06/21/2025 1:44 AM EST [facility] Alkaline Phosphatase, Plasma 378(H) 40 - 115 U/L 06/21/2025 1:44 AM EST [facility] Total Bilirubin, Plasma 1.5(H) 0.2 - 1.1 mg/dL 06/21/2025 1:44 AM EST [facility] Albumin, Plasma 3.1(L) 3.5 - 5.2 g/dL 06/21/2025 1:44 AM EST [facility] Total Protein 6.0(L) 6.3 - 7.9 g/dL 06/21/2025 1:44 AM EST [facility] ALT, Plasma 15 10 - 50 U/L 06/21/2025 1:44 AM EST [facility] AST, Plasma 66(H) 10 - 50 U/L 06/21/2025 1:44 AM EST [facility] Comment:Hemolyzed, result ma y be falsely increased. Blood Venous blood specimen / Unknown Venipuncture / Unknown 06/20/2025 9:00 PM EST 06/20/2025 9:09 PM EST Viktoria Glynn MD LAB BLOOD ORDERABLES Final Re sult Performing Organization Address [facility]/ZIP Co de Phone Number [facility] [address] [place] [address] * Phosphorus (06/20/2025 9:00 PM EST) Phosphorus, Plasma 4.0 2.5 - 4.5 mg/dL 06/21/2025 12:01 AM EST [facility] Blood Venous blood specimen / Unknown Venipuncture / Unknown 06/20/2025 9:00 PM EST 06/20/2025 9:09 PM EST us Viktoria Glynn MD LAB BLOOD ORDERABLES Final Re sult [facility] [address] [place] [address] * (ABNORMAL) CBC W/O Differential (06/20/2025 9:00 PM EST) WBC Count 82.85(HH) 3.70 - 10.30 10*3/uL LAB HEMATOLOGY METHOD 06/20/2025 9:59 PM EST [facility] RBC Count 6.41(H) 4.60 - 6.10 10*6/uL LAB HEMATOLOGY METHOD 06/20/2025 9:59 PM EST [facility] HGB 15.7 13.7 - 17.5 g/dL LAB HEMATOLOGY METHOD 06/20/2025 9:59 PM EST [facility] HCT 51.5(H) 40.0 - 51.0 % LAB HEMATOLOGY METHOD 06/20/2025 9:59 PM EST [facility] Platelet Count LAB HEMATOLOGY METHOD 06/20/2025 9:59 PM EST [facility] Comment:Interfering substanc e present, platelets appear decreased. Recollect recommended. MCV 80 79 - 98 fL LAB HEMATOLOGY METHOD 06/20/2025 9:59 PM EST [facility] MCH 24.5(L) 26.0 - 32.0 pg LAB HEMATOLOGY METHOD 06/20/2025 9:59 PM EST [facility] MCHC 30.5(L) 30.7 - 35.5 g/dL LAB HEMATOLOGY METHOD 06/20/2025 9:59 PM EST [facility] RDW 30.8(H) 11.5 - 14.5 % LAB HEMATOLOGY METHOD 06/20/2025 9:59 PM EST [facility] MPV LAB HEMATOLOGY METHOD 06/20/2025 9:59 PM EST [facility] Comment:Not Measured nRBC 12.1(H) <=0.0 per 100 WBCs LAB HEMATOLOGY METHOD 06/20/2025 9:59 PM EST [facility] Blood Venous blood specimen / Unknown Venipuncture / Unknown 06/20/2025 9:00 PM EST 06/20/2025 9:09 PM EST Viktoria Glynn MD LAB BLOOD ORDERABLES Final Re sult Performing Organization Address [facility]/ZIP Co de Phone Number [facility] [address] [place] [address] * Potassium, Plasma (06/20/2025 5:06 PM EST) Potassium, Plasma 4.2 3.6 - 4.9 mmol/L 06/20/2025 7:31 PM EST [facility] Comment:Hemolyzed - Potassiu m may be falsely elevated by approximately 0.4-0.7 mmol/L. Blood Venous blood specimen / Unknown Venipuncture / Unknown 06/20/2025 5:06 PM EST 06/20/2025 5:10 PM EST Viktoria Glynn MD LAB BLOOD ORDERABLES Final Re sult Performing Organization Address [facility] Co de Phone Number [facility] [address] [place] [address] * (ABNORMAL) C-reactive protein (06/20/2025 5:06 PM EST) CRP, Plasma 36.3(H) <=8.0 mg/L 06/20/2025 6:10 PM EST [facility] Blood Venous blood specimen / Unknown Venipuncture / Unknown 06/20/2025 5:06 PM EST 06/20/2025 5:10 PM EST Narrative [facility] - 06/20/2025 6:10 PM EST This CRP test is appropriate for assessment of infection, systemic inflammation and/or tissue injury. To assess cardiovascular disease risk order high sensitivity CRP (CRPH). Viktoria Glynn MD LAB BLOOD ORDERABLES Final Re sult Performing Organization Address [facility] Co de Phone Number [facility] [address] [place] [address] * (ABNORMAL) Procalcitonin (06/20/2025 5:06 PM EST) Procalcitonin, Plasma 0.55(H) <0.09 ng/mL 06/20/2025 7:30 PM EST [facility] Blood Venous blood specimen / Unknown Venipuncture / Unknown 06/20/2025 5:06 PM EST 06/20/2025 5:10 PM EST Narrative [facility] - 06/20/2025 7:30 PM EST Procalcitonin concentrations in healthy individuals are [...] predict 28 day mortality risk. Please consult www.unodcf-bkm-sqxvvoofem.com for more information. Test performed at [facility]. Viktoria Glynn MD LAB BLOOD ORDERABLES Final Re sult Performing Organization Address City/[facility]/ZIP Co de Phone Number [facility] [address] [place] [address] * Magnesium (06/20/2025 5:06 PM EST) Magnesium, Plasma 1.9 1.9 - 2.4 mg/dL 06/20/2025 5:39 PM EST [facility] Blood Venous blood specimen / Unknown Venipuncture / Unknown 06/20/2025 5:06 PM EST 06/20/2025 5:10 PM EST us Vitkoria Glynn MD LAB BLOOD ORDERABLES Final Re sult [facility] [address] [place] [address] * (ABNORMAL) Basic metabolic panel (06/20/2025 5:06 PM EST) Glucose, Plasma 98 74 - 99 mg/dL 06/20/2025 5:39 PM EST [facility] BUN, Plasma 66(H) 8 - 23 mg/dL 06/20/2025 5:39 PM EST [facility] Creatinine, Plasma 3.11(H) 0.70 - 1.20 mg/dL 06/20/2025 5:39 PM EST [facility] BUN/Creatinine Ratio 21 06/20/2025 5:39 PM EST [facility] Sodium, Plasma 136 136 - 145 mmol/L 06/20/2025 5:39 PM EST [facility] Potassium, Plasma 4.1 3.6 - 4.9 mmol/L 06/20/2025 5:39 PM EST [facility] Comment:Hemolyzed - Potassiu m may be falsely elevated by approximately 0.4-0.7 mmol/L. Chloride, Plasma 92(L) 97 - 107 mmol/L 06/20/2025 5:39 PM EST [facility] CO2, Plasma 28 22 - 29 mmol/L 06/20/2025 5:39 PM EST [facility] Anion Gap 16 6 - 16 mmol/L 06/20/2025 5:39 PM EST [facility] Total Calcium, Plasma 8.6(L) 8.9 - 10.2 mg/dL 06/20/2025 5:39 PM EST [facility] eGFRcr 20.2 mL/min/1. 73m*2 06/20/2025 5:39 PM EST [facility] Comment:Reported eGFRcr in m L/min/1.73m2 is based the CKD-EPI 2020 equation that does not use a race coefficient. Blood Venous blood specimen / Unknown Venipuncture / Unknown 06/20/2025 5:06 PM EST 06/20/2025 5:10 PM EST Viktoria Glynn MD LAB BLOOD ORDERABLES Final Re sult Performing Organization Address City/[facility]/ZIP Co de Phone Number [facility] [address] [place] [address] * Phosphorus (06/20/2025 5:06 PM EST) Phosphorus, Plasma 4.2 2.5 - 4.5 mg/dL 06/20/2025 6:23 PM EST [facility] Blood Venous blood specimen / Unknown Venipuncture / Unknown 06/20/2025 5:06 PM EST 06/20/2025 5:10 PM EST Viktoria Glynn MD LAB BLOOD ORDERABLES Final Re sult Performing Organization Address [facility] Co de Phone Number [facility] [address] [place] [address] * (ABNORMAL) CBC W/O Differential (06/20/2025 5:06 PM EST) WBC Count 82.88(HH) 3.70 - 10.30 10*3/uL LAB HEMATOLOGY METHOD 06/20/2025 5:39 PM EST [facility] RBC Count 6.50(H) 4.60 - 6.10 10*6/uL LAB HEMATOLOGY METHOD 06/20/2025 5:39 PM EST [facility] HGB 15.9 13.7 - 17.5 g/dL LAB HEMATOLOGY METHOD 06/20/2025 5:39 PM EST [facility] HCT 51.8(H) 40.0 - 51.0 % LAB HEMATOLOGY METHOD 06/20/2025 5:39 PM EST [facility] Platelet Count LAB HEMATOLOGY METHOD 06/20/2025 5:39 PM EST [facility] Comment:Interfering substanc e present, platelets appear decreased. Recollect recommended. MCV 80 79 - 98 fL LAB HEMATOLOGY METHOD 06/20/2025 5:39 PM EST [facility] MCH 24.5(L) 26.0 - 32.0 pg LAB HEMATOLOGY METHOD 06/20/2025 5:39 PM EST [facility] MCHC 30.7 30.7 - 35.5 g/dL LAB HEMATOLOGY METHOD 06/20/2025 5:39 PM EST [facility] RDW 30.5(H) 11.5 - 14.5 % LAB HEMATOLOGY METHOD 06/20/2025 5:39 PM EST [facility] MPV LAB HEMATOLOGY METHOD 06/20/2025 5:39 PM EST [facility] Comment:Not Measured nRBC 10.7(H) <=0.0 per 100 WBCs LAB HEMATOLOGY METHOD 06/20/2025 5:39 PM EST [facility] Blood Venous blood specimen / Unknown Venipuncture / Unknown 06/20/2025 5:06 PM EST 06/20/2025 5:10 PM EST us Viktoria Glynn MD LAB BLOOD ORDERABLES Final Re sult Performing Organization Address City/[facility]/ZIP Co de Phone Number [facility] [address] [place] [address] * Lavender Top (06/20/2025 10:12 AM EST) Extra Hold for add-ons 06/20/2025 1:01 PM EST [facility] Comment:Auto resulted. Blood Venous blood specimen / Unknown 06/20/2025 10:12 AM EST 06/20/2025 10:18 AM EST us Viktoria Glynn MD LAB BLOOD ORDERABLES Final Re sult [facility] [address] [place] [address] * Magnesium (06/20/2025 10:12 AM EST) Magnesium, Plasma 2.0 1.9 - 2.4 mg/dL 06/20/2025 10:48 AM EST [facility] Blood Venous blood specimen / Unknown Venipuncture / Unknown 06/20/2025 10:12 AM EST 06/20/2025 10:17 AM EST us Viktoria Glynn MD LAB BLOOD ORDERABLES Final Re sult [facility] [address] [place] [address] * (ABNORMAL) Basic metabolic panel (06/20/2025 10:12 AM EST) Glucose, Plasma 138(H) 74 - 99 mg/dL 06/20/2025 10:48 AM EST [facility] BUN, Plasma 67(H) 8 - 23 mg/dL 06/20/2025 10:48 AM EST [facility] Creatinine, Plasma 3.12(H) 0.70 - 1.20 mg/dL 06/20/2025 10:48 AM EST [facility] BUN/Creatinine Ratio 06/20/2025 10:48 AM EST [facility] Sodium, Plasma 136 136 - 145 mmol/L 06/20/2025 10:48 AM EST [facility] Potassium, Plasma 5.1(H) 3.6 - 4.9 mmol/L 06/20/2025 10:48 AM EST [facility] Comment:Hemolyzed - Potassiu m may be falsely elevated by approximately 0.8-1.7 mmol/L. Chloride, Plasma 93(L) 97 - 107 mmol/L 06/20/2025 10:48 AM EST [facility] CO2, Plasma 26 22 - 29 mmol/L 06/20/2025 10:48 AM EST [facility] Anion Gap 17(H) 6 - 16 mmol/L 06/20/2025 10:48 AM EST [facility] Total Calcium, Plasma 8.6(L) 8.9 - 10.2 mg/dL 06/20/2025 10:48 AM EST [facility] eGFRcr 20.2 mL/min/1. 73m*2 06/20/2025 10:48 AM EST [facility] Comment:Reported eGFRcr in m L/min/1.73m2 is based the CKD-EPI 2020 equation that does not use a race coefficient. Blood Venous blood specimen / Unknown Venipuncture / Unknown 06/20/2025 10:12 AM EST 06/20/2025 10:17 AM EST us Viktoria Glynn MD LAB BLOOD ORDERABLES Final Re sult [facility] [address] [place] [address] * ECHO, ADULT TRANSTHORACIC LIMITED (06/20/2025 7:56 AM EST) BSA 1.88 m2 NASIM ISCV Height 160.0 NASIM ISCV Weight 85.0 NASIM ISCV LVIDd 55 mm NASIM ISCV LVIDs 46 mm NASIM ISCV IVSd 6 mm NASIM ISCV LVPWd 8 mm NASIM ISCV LV MASS(C)D 135 g NASIM ISCV [facility] CV ECHO LV MASS INDEX 72 g/m2 NASIM ISCV LV RWT 0.25 mm NASIM ISCV MV E Vmax 103.0 cm/s NASIM ISCV MV A Vmax 88.0 cm/s NASIM ISCV MV E/A 1.2 cm/s NASIM ISCV LA dimension 41 mm NASIM ISCV MV dec slope 729 cm/s2 NASIM ISCV MV dec time 140 ms NASIM ISCV MV P1/2t 41 ms NASIM ISCV MVA(P1/2t) 5.4 cm2 NASIM ISCV LV EDV(MOD-4ch) 149 mL NASIM ISCV LV ESV(MOD4ch) 111 mL NASIM ISCV EF(MOD-sp4) 26 % NASIM ISCV LV EDV(MOD-2ch) 168 mL NASIM ISCV EDV(MOD-bp) 159 mL NASIM ISCV LV ESV(MOD2ch) 117 mL NASIM ISCV EF(MOD-sp2) 30 % NASIM ISCV ESV(MOD-bp) 114 mL NASIM ISCV EF(MOD-bp) 28 % NASIM ISCV LVLs ap2 9.9 mm NASIM ISCV LV Lat e' Velocity 9.5 cm/s NASIM ISCV LV Sept e' Quan 9.2 cm/s NASIM ISCV Lat E/e' 10.8 NASIM ISCV Sep E/e' 11.2 NASIM ISCV Avg E/e' 11.0 NASIM ISCV Anatomical Region Laterality Modality Echocardiography Narrative 06/20/2025 3:13 PM EST Left Ventricle: The left ventricle is dilated by volume measurements. There is normal left ventricular myocardial thickness and mass. 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 The left ventricular systolic function is severely reduced. The LVEF as measured by biplane volume is 28%. The inferolateral wall is hypokinetic. The anterior, inferoseptal and apical moody are akinetic. Compared to the most recently available prior study, and allowing for differences in image quality and technique, there is no significant interval change noted. Left Ventricle The left ventricle is dilated by volume measurements. There is normal left ventricular myocardial thickness and mass. 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 The left ventricular systolic function is severely reduced. The LVEF as measured by biplane volume is 28%. The inferolateral wall is hypokinetic. The anterior, inferoseptal and apical moody are akinetic. Pericardium No pericardial effusion. Extracardiac There are bilateral pleural effusions. Ascites is present. Study Details A limited transthoracic echocardiogram using limited 2D imaging was performed. During the study the apical, parasternal and subcostal view was captured. Height: 160.0 cm. Weight: 85.0 kg. BSA: 1.88 m2. Study Recommendation Compared to the most recently available prior study, and allowing for differences in image quality and technique, there is no significant interval change noted. Viktoria Glynn MD CV ECHO PROCEDURES Final Resu lt * (ABNORMAL) Hepatic function panel (06/20/2025 12:03 AM EST) Direct Bilirubin, Plasma 0.7(H) <=0.3 mg/dL 06/20/2025 12:40 AM [facility] Comment:Hemolyzed, result ma y be falsely decreased. Alkaline Phosphatase, Plasma 399(H) 40 - 115 U/L 06/20/2025 12:40 AM [facility] Total Bilirubin, Plasma 1.5(H) 0.2 - 1.1 mg/dL 06/20/2025 12:40 AM [facility] Albumin, Plasma 3.3(L) 3.5 - 5.2 g/dL 06/20/2025 12:40 AM [facility] Total Protein 6.3 6.3 - 7.9 g/dL 06/20/2025 12:40 AM [facility] ALT, Plasma 18 10 - 50 U/L 06/20/2025 12:40 AM EST [facility] AST, Plasma 56(H) 10 - 50 U/L 06/20/2025 12:40 AM EST [facility] Comment:Hemolyzed, result ma y be falsely increased. Blood Venous blood specimen / Unknown Venipuncture / Unknown 06/20/2025 12:03 AM EST 06/20/2025 12:09 AM EST us Viktoria Glynn MD LAB BLOOD ORDERABLES Final Re sult Performing Organization Address City/[facility]/ZIP Co de Phone Number [facility] [address] [place] [address] * Phosphorus (06/20/2025 12:03 AM EST) Phosphorus, Plasma 4.2 2.5 - 4.5 mg/dL 06/20/2025 12:40 AM EST [facility] Blood Venous blood specimen / Unknown Venipuncture / Unknown 06/20/2025 12:03 AM EST 06/20/2025 12:09 AM EST us Viktoria Glynn MD LAB BLOOD ORDERABLES Final Re sult Performing Organization Address City/[facility]/ZIP Co de Phone Number [facility] [address] [place] [address] * Magnesium (06/20/2025 12:03 AM EST) Magnesium, Plasma 2.1 1.9 - 2.4 mg/dL 06/20/2025 12:40 AM EST [facility] Blood Venous blood specimen / Unknown Venipuncture / Unknown 06/20/2025 12:03 AM EST 06/20/2025 12:09 AM EST us Viktoria Glynn MD LAB BLOOD ORDERABLES Final Re sult Performing Organization Address City/[facility]/ZIP Co de Phone Number [facility] [address] [place] [address] * (ABNORMAL) CBC W/O Differential (06/20/2025 12:03 AM EST) WBC Count 76.58(H) 3.70 - 10.30 10*3/uL LAB HEMATOLOGY METHOD 06/20/2025 2:00 AM EST [facility] RBC Count 6.69(H) 4.60 - 6.10 10*6/uL LAB HEMATOLOGY METHOD 06/20/2025 2:00 AM EST [facility] HGB 16.7 13.7 - 17.5 g/dL LAB HEMATOLOGY METHOD 06/20/2025 2:00 AM EST [facility] HCT 53.2(H) 40.0 - 51.0 % LAB HEMATOLOGY METHOD 06/20/2025 2:00 AM EST [facility] Platelet Count 84(L) 155 - 369 10*3/uL LAB HEMATOLOGY METHOD 06/20/2025 2:00 AM EST [facility] MCV 80 79 - 98 fL LAB HEMATOLOGY METHOD 06/20/2025 2:00 AM EST [facility] MCH 25.0(L) 26.0 - 32.0 pg LAB HEMATOLOGY METHOD 06/20/2025 2:00 AM EST [facility] MCHC 31.4 30.7 - 35.5 g/dL LAB HEMATOLOGY METHOD 06/20/2025 2:00 AM EST [facility] RDW 31.5(H) 11.5 - 14.5 % LAB HEMATOLOGY METHOD 06/20/2025 2:00 AM EST [facility] MPV LAB HEMATOLOGY METHOD 06/20/2025 2:00 AM EST [facility] Comment:Not Measured nRBC 9.8(H) <=0.0 per 100 WBCs LAB HEMATOLOGY METHOD 06/20/2025 2:00 AM EST [facility] Blood Venous blood specimen / Unknown Venipuncture / Unknown 06/20/2025 12:03 AM EST 06/20/2025 12:09 AM EST us Viktoria Glynn MD LAB BLOOD ORDERABLES Final Re sult [facility] [address] [place] [address] * (ABNORMAL) Basic metabolic panel (06/20/2025 12:03 AM EST) Glucose, Plasma 100(H) 74 - 99 mg/dL 06/20/2025 12:40 AM EST [facility] BUN, Plasma 65(H) 8 - 23 mg/dL 06/20/2025 12:40 AM EST [facility] Creatinine, Plasma 3.11(H) 0.70 - 1.20 mg/dL 06/20/2025 12:40 AM EST [facility] BUN/Creatinine Ratio 06/20/2025 12:40 AM EST [facility] Sodium, Plasma 133(L) 136 - 145 mmol/L 06/20/2025 12:40 AM EST [facility] Potassium, Plasma 4.8 3.6 - 4.9 mmol/L 06/20/2025 12:40 AM EST [facility] Chloride, Plasma 93(L) 97 - 107 mmol/L 06/20/2025 12:40 AM EST [facility] CO2, Plasma 25 22 - 29 mmol/L 06/20/2025 12:40 AM EST [facility] Anion Gap 15 6 - 16 mmol/L 06/20/2025 12:40 AM EST [facility] Total Calcium, Plasma 8.9 8.9 - 10.2 mg/dL 06/20/2025 12:40 AM EST [facility] eGFRcr 20.2 mL/min/1.7 3m*2 06/20/2025 12:40 AM EST [facility] Comment:Reported eGFRcr in m L/min/1.73m2 is based the CKD-EPI 2020 equation that does not use a race coefficient. Blood Venous blood specimen / Unknown Venipuncture / Unknown 06/20/2025 12:03 AM EST 06/20/2025 12:09 AM EST us Viktoria Glynn MD LAB BLOOD ORDERABLES Final Re sult [facility] [address] [place] [address] * (ABNORMAL) POCT glucose meter (06/19/2025 7:35 PM EST) POCT Glucose 109(H) 74 - 99 mg/dL 06/19/2025 7:36 PM EST [facility] Comment:Accuracy of a glucos e result obtained from a capillary whole blood specimen relies upon adequate, non-compromised capillary blood flow. If the capillary glucose result is not consistent with the patient's clinical signs and symptoms, glucose testing should be repeated with either an arterial or venous sample on the glucometer or sent to the main labortory for testing. Comment 06/19/2025 7:36 PM EST [facility] Dish Maker ID Asim Jaime 06/19/20 7:36 PM EST [facility] Device ID [id number] 06/19/2025 7:36 PM EST [facility] Specimen Type POC Capillary 06/19/2025 7:36 PM EST [facility] Blood Capillary blood specimen / Unknown 06/19/2025 7:35 PM EST 06/19/2025 7:36 PM EST Viktoria Glynn MD LAB POINT OF CARE TE ST DOCKED DEVICE UNSOLICITED RESULTS Final Result [facility] [address] [place] [address] * ECG Adult (06/19/2025 6:11 PM EST) EKG DIAGNOSIS CLASS Abnormal MUSE ECG Ventricular Rate 152 BPM MUSE ECG QRSD Interval 98 ms MUSE ECG QT Interval 314 ms MUSE ECG QTC Interval 499 ms MUSE ECG R Bliss 120 degrees MUSE ECG T Wave Bliss -19 degrees MUSE ECG Diagnosis Supraventricular tachycardia atypical flutter vs AVNRT MUSE ECG Diagnosis Incomplete right bundle branch block MUSE ECG Diagnosis Right ventricular hypertrophy MUSE ECG Diagnosis Anterior infarct , age undetermined MUSE ECG Diagnosis Abnormal ECG MUSE ECG Diagnosis MUSE ECG Diagnosis Confirmed by Julio Oates ([id number]) on 06/20/2025 11:15:13 AM MUSE ECG 06/19/2025 6:11 PM EST 06/20/2025 11:15 AM EST Viktoria Glynn MD ECG ORDERABLES Final Result MUSE ECG * Urinalysis with reflex microscopic (Culture NOT Included) (06/19/2025 5:55 PM EST) Color, Urine Yellow LAB URINALYSIS - AUTOMATED METHOD 06/19/2025 6:10 PM EST [facility] Clarity, Urine Clear LAB URINALYSIS - AUTOMATED METHOD 06/19/2025 6:10 PM EST [facility] Spec [place], Urine 1.009 1.005 - 1.030 LAB URINALYSIS - AUTOMATED METHOD 06/19/2025 6:10 PM EST [facility] pH, Urine 6.0 5.0 - 8.0 LAB URINALYSIS - AUTOMATED METHOD 06/19/2025 6:10 PM EST [facility] Protein, Urine Negative Negative mg/dL LAB URINALYSIS - AUTOMATED METHOD 06/19/2025 6:10 PM EST [facility] Glucose, Urine Negative Negative mg/dL LAB URINALYSIS - AUTOMATED METHOD 06/19/2025 6:10 PM EST [facility] Ketones, Urine Negative Negative mg/dL LAB URINALYSIS - AUTOMATED METHOD 06/19/2025 6:10 PM EST [facility] Blood, Urine Negative Negative LAB URINALYSIS - AUTOMATED METHOD 06/19/2025 6:10 PM EST [facility] Bilirubin, Urine Negative Negative LAB URINALYSIS - AUTOMATED METHOD 06/19/2025 6:10 PM EST [facility] Urobilinogen, Urine 0.2 0.2 to 1.0 mg/dL LAB URINALYSIS - AUTOMATED METHOD 06/19/2025 6:10 PM EST [facility] Leukocytes, Urine Negative Negative LAB URINALYSIS - AUTOMATED METHOD 06/19/2025 6:10 PM EST [facility] Nitrite, Urine Negative Negative LAB URINALYSIS - AUTOMATED METHOD 06/19/2025 6:10 PM EST [facility] Urine Urine specimen obtained by clean catch procedure / Unknown Non-blood Collection / Unknown 06/19/2025 5:55 PM EST 06/19/2025 6:04 PM EST us Viktoria Glynn MD LAB URINE ORDERABLES Final Re sult [facility] [address] [place] [address] * ECG Adult (06/19/2025 5:43 PM EST) EKG DIAGNOSIS CLASS Abnormal MUSE ECG Ventricular Rate 75 BPM MUSE ECG Atrial Rate 75 BPM MUSE ECG WA Interval 162 ms MUSE ECG QRSD Interval 106 ms MUSE ECG QT Interval 418 ms MUSE ECG QTC Interval 466 ms MUSE ECG P Bliss 58 degrees MUSE ECG R Bliss 127 degrees MUSE ECG T Wave Bliss 13 degrees MUSE ECG Diagnosis Sinus rhythm with occasional premature ventricular complexes MUSE ECG Diagnosis Incomplete right bundle branch block MUSE ECG Diagnosis Right ventricular hypertrophy MUSE ECG Diagnosis Cannot rule out Anterior infarct , age undetermined MUSE ECG Diagnosis Abnormal ECG MUSE ECG Diagnosis MUSE ECG Diagnosis Confirmed by Julio Oates ([id number]) on 06/20/2025 11:13:48 AM MUSE ECG 06/19/2025 5:43 PM EST 06/20/2025 11:13 AM EST Viktoria Glynn MD ECG ORDERABLES Final Result Performing Organization Address City/[facility] Co de Phone Number MUSE ECG * Potassium, Plasma (06/19/2025 5:38 PM EST) Pathologist [facility] Potassium, Plasma 4.9 3.6 - 4.9 mmol/L 06/19/2025 6:10 PM EST [facility] Comment:Hemolyzed - Potassiu m may be falsely elevated by approximately 0.4-0.7 mmol/L. Blood Venous blood specimen / Unknown Venipuncture / Unknown 06/19/2025 5:38 PM EST 06/19/2025 5:45 PM EST Viktoria Glynn MD LAB BLOOD ORDERABLES Final Re sult [facility] [address] [place] [address] * POCT glucose meter (06/19/2025 4:42 PM EST) Pathologist [facility] POCT Glucose 92 74 - 99 mg/dL 06/19/2025 5:05 PM EST [facility] Comment:Accuracy of a glucos e result obtained from a capillary whole blood specimen relies upon adequate, non-compromised capillary blood flow. If the capillary glucose result is not consistent with the patient's clinical signs and symptoms, glucose testing should be repeated with either an arterial or venous sample on the glucometer or sent to the main labortory for testing. Comment 06/19/2025 5:05 PM EST [facility] Dish Maker ID Amada Ayala 06/19/2025 5:05 PM EST [facility] Device ID [id number] 06/19/2025 5:05 PM EST [facility] Specimen Type POC Capillary 06/19/2025 5:05 PM EST [facility] Blood Capillary blood specimen / Unknown 06/19/2025 4:42 PM EST 06/19/2025 5:05 PM EST Viktoria Glynn MD LAB POINT OF CARE TE ST DOCKED DEVICE UNSOLICITED RESULTS Final Result Performing Organization Address City/[facility] Co de Phone Number [facility] [address] [place] [address] * Phosphorus (06/19/2025 4:13 PM EST) Phosphorus, Plasma 4.3 2.5 - 4.5 mg/dL 06/19/2025 4:48 PM EST [facility] Blood Venous blood specimen / Unknown Venipuncture / Unknown 06/19/2025 4:13 PM EST 06/19/2025 4:20 PM EST Viktoria Glynn MD LAB BLOOD ORDERABLES Final Re sult [facility] [address] [place] [address] * Magnesium (06/19/2025 4:13 PM EST) Magnesium, Plasma 2.0 1.9 - 2.4 mg/dL 06/19/2025 4:48 PM EST [facility] Blood Venous blood specimen / Unknown Venipuncture / Unknown 06/19/2025 4:13 PM EST 06/19/2025 4:20 PM EST us Viktoria Glynn MD LAB BLOOD ORDERABLES Final Re sult [facility] [address] [place] [address] * (ABNORMAL) CBC W/O Differential (06/19/2025 4:13 PM EST) WBC Count 74.61(H) 3.70 - 10.30 10*3/uL LAB HEMATOLOGY METHOD 06/19/2025 5:09 PM EST [facility] RBC Count 6.46(H) 4.60 - 6.10 10*6/uL LAB HEMATOLOGY METHOD 06/19/2025 5:09 PM EST [facility] HGB 16.2 13.7 - 17.5 g/dL LAB HEMATOLOGY METHOD 06/19/2025 5:09 PM EST [facility] HCT 52.6(H) 40.0 - 51.0 % LAB HEMATOLOGY METHOD 06/19/2025 5:09 PM EST [facility] Platelet Count 84(L) 155 - 369 10*3/uL LAB HEMATOLOGY METHOD 06/19/2025 5:09 PM EST [facility] MCV 81 79 - 98 fL LAB HEMATOLOGY METHOD 06/19/2025 5:09 PM EST [facility] MCH 25.1(L) 26.0 - 32.0 pg LAB HEMATOLOGY METHOD 06/19/2025 5:09 PM EST [facility] MCHC 30.8 30.7 - 35.5 g/dL LAB HEMATOLOGY METHOD 06/19/2025 5:09 PM EST [facility] RDW 31.3(H) 11.5 - 14.5 % LAB HEMATOLOGY METHOD 06/19/2025 5:09 PM EST [facility] MPV LAB HEMATOLOGY METHOD 06/19/2025 5:09 PM EST [facility] Comment:Not Measured nRBC 9.5(H) <=0.0 per 100 WBCs LAB HEMATOLOGY METHOD 06/19/2025 5:09 PM EST [facility] Blood Venous blood specimen / Unknown Venipuncture / Unknown 06/19/2025 4:13 PM EST 06/19/2025 4:20 PM EST us Viktoria Glynn MD LAB BLOOD ORDERABLES Final Re sult [facility] [address] [place] [address] * (ABNORMAL) Basic metabolic panel (06/19/2025 4:13 PM EST) Glucose, Plasma 110(H) 74 - 99 mg/dL 06/19/2025 4:48 PM EST [facility] BUN, Plasma 67(H) 8 - 23 mg/dL 06/19/2025 4:48 PM EST [facility] Creatinine, Plasma 3.13(H) 0.70 - 1.20 mg/dL 06/19/2025 4:48 PM EST [facility] BUN/Creatinine Ratio 21 06/19/2025 4:48 PM EST [facility] Sodium, Plasma 134(L) 136 - 145 mmol/L 06/19/2025 4:48 PM EST [facility] Potassium, Plasma 4.7 3.6 - 4.9 mmol/L 06/19/2025 4:48 PM EST [facility] Comment:Hemolyzed - Potassiu m may be falsely elevated by approximately 0.4-0.7 mmol/L. Chloride, Plasma 95(L) 97 - 107 mmol/L 06/19/2025 4:48 PM EST [facility] CO2, Plasma 24 22 - 29 mmol/L 06/19/2025 4:48 PM EST [facility] Anion Gap 15 6 - 16 mmol/L 06/19/2025 4:48 PM EST [facility] Total Calcium, Plasma 8.6(L) 8.9 - 10.2 mg/dL 06/19/2025 4:48 PM EST [facility] eGFRcr 20.1 mL/min/1. 73m*2 06/19/2025 4:48 PM EST [facility] Comment:Reported eGFRcr in m L/min/1.73m2 is based the CKD-EPI 2020 equation that does not use a race coefficient. Blood Venous blood specimen / Unknown Venipuncture / Unknown 06/19/2025 4:13 PM EST 06/19/2025 4:20 PM EST us Viktoria Glynn MD LAB BLOOD ORDERABLES Final Re sult [facility] [address] [place] [address] * US Renal Complete (06/19/2025 3:19 PM EST) Anatomical Region Laterality Modality Kidney Ultrasound Impressions 06/19/2025 3:22 PM EST Mild right pelviectasis. CRITICAL RESULT: No. COMMUNICATION: Per this written report. Drafted by Ashlee Jha MD on 06/19/2025 3:20 PM Final report signed by Ashlee Jha MD on 06/19/2025 3:22 PM Narrative 06/19/2025 3:22 PM EST CLINICAL INDICATION: Kidney injury. TECHNIQUE: Multiplanar la scale sonographic imaging of the kidneys. COMPARISON: None. FINDINGS: Right Kidney: The right kidney is normal in size and echogenicity measuring 11.3 cm. Mild pelviectasis. No contour deforming masses. No obvious calculi. Left Kidney: The left kidney is normal in size and echogenicity measuring 10.9 cm. No hydronephrosis. No contour deforming masses. No obvious calculi. Bladder: Partially decompressed without obvious abnormality. Procedure Note Ashlee Jha MD - 06/19/2025 CLINICAL INDICATION: Kidney injury. TECHNIQUE: Multiplanar la scale sonographic imaging of the kidneys. COMPARISON: None. FINDINGS: Right Kidney: The right kidney is normal in size and echogenicitymeasuring 11.3 cm. Mild pelviectasis. No contour deforming masses. Noobvious calculi. Left Kidney: The left kidney is normal in size and echogenicity [id number] cm. No hydronephrosis. No contour deforming masses. No obviouscalculi. Bladder: Partially decompressed without obvious abnormality. IMPRESSION: Mild right pelviectasis. CRITICAL RESULT: No. COMMUNICATION: Per this written report. Drafted by Ashlee Jha MD on 06/19/2025 3:20 PM Final report signed by Ashlee Jha MD on 06/19/2025 3:22 PM Viktoria Glynn MD IMG US PROCEDURES Final Resul t * POCT glucose meter (06/19/2025 12:59 PM EST) POCT Glucose 88 74 - 99 mg/dL 06/19/2025 1:06 PM EST [facility] Comment:Accuracy of a glucos e result obtained from a capillary whole blood specimen relies upon adequate, non-compromised capillary blood flow. If the capillary glucose result is not consistent with the patient's clinical signs and symptoms, glucose testing should be repeated with either an arterial or venous sample on the glucometer or sent to the main labortory for testing. Comment 06/19/2025 1:06 PM EST [facility] Dish Maker ID Amada Ayala 06/19/2025 1:06 PM EST [facility] Device ID [id number] 06/19/2025 1:06 PM EST [facility] Specimen Type POC Capillary 06/19/2025 1:06 PM EST [facility] Blood Capillary blood specimen / Unknown 06/19/2025 12:59 PM EST 06/19/2025 1:06 PM EST Viktoria Glynn MD LAB POINT OF CARE TE ST DOCKED DEVICE UNSOLICITED RESULTS Final Result Performing Organization Address [facility] Co de Phone Number [facility] [address] [place] [address] * Lactate, venous (06/19/2025 11:05 AM EST) Lactate, Venous, Whole Blood 1.9 0.5 - 2.2 mmol/L LAB HEMATOLOGY METHOD 06/19/2025 11:10 AM EST [facility] Blood Venous blood specimen / Unknown Venipuncture / Unknown 06/19/2025 11:05 AM EST 06/19/2025 11:09 AM EST Viktroia Glynn MD LAB BLOOD ORDERABLES Final Re sult Performing Organization Address City/[facility]/ZIP Co de Phone Number [facility] [address] [place] [address] * (ABNORMAL) Hepatic function panel (06/19/2025 4:41 AM EST) Direct Bilirubin, Plasma 0.6(H) <=0.3 mg/dL 06/19/2025 10:04 AM EST [facility] Comment:Hemolyzed, result ma y be falsely decreased. Alkaline Phosphatase, Plasma 362(H) 40 - 115 U/L 06/19/2025 10:04 AM EST [facility] Total Bilirubin, Plasma 1.4(H) 0.2 - 1.1 mg/dL 06/19/2025 10:04 AM EST [facility] Albumin, Plasma 3.3(L) 3.5 - 5.2 g/dL 06/19/2025 10:04 AM EST [facility] Total Protein 6.3 6.3 - 7.9 g/dL 06/19/2025 10:04 AM EST [facility] ALT, Plasma 17 10 - 50 U/L 06/19/2025 10:04 AM EST [facility] AST, Plasma 62(H) 10 - 50 U/L 06/19/2025 10:04 AM EST [facility] Comment:Hemolyzed, result ma y be falsely increased. Blood Venous blood specimen / Unknown Venipuncture / Unknown 06/19/2025 4:41 AM EST 06/19/2025 5:07 AM EST us Viktoria Glynn MD LAB BLOOD ORDERABLES Final Re sult [facility] [address] [place] [address] * (ABNORMAL) CBC W/O Differential (06/19/2025 4:41 AM EST) WBC Count 63.85(H) 3.70 - 10.30 10*3/uL LAB HEMATOLOGY METHOD 06/19/2025 6:35 AM EST [facility] RBC Count 6.42(H) 4.60 - 6.10 10*6/uL LAB HEMATOLOGY METHOD 06/19/2025 6:35 AM EST [facility] HGB 16.0 13.7 - 17.5 g/dL LAB HEMATOLOGY METHOD 06/19/2025 6:35 AM EST [facility] HCT 51.3(H) 40.0 - 51.0 % LAB HEMATOLOGY METHOD 06/19/2025 6:35 AM EST [facility] Platelet Count 83(L) 155 - 369 10*3/uL LAB HEMATOLOGY METHOD 06/19/2025 6:35 AM EST [facility] MCV 80 79 - 98 fL LAB HEMATOLOGY METHOD 06/19/2025 6:35 AM EST [facility] MCH 24.9(L) 26.0 - 32.0 pg LAB HEMATOLOGY METHOD 06/19/2025 6:35 AM EST [facility] MCHC 31.2 30.7 - 35.5 g/dL LAB HEMATOLOGY METHOD 06/19/2025 6:35 AM EST [facility] RDW 30.9(H) 11.5 - 14.5 % LAB HEMATOLOGY METHOD 06/19/2025 6:35 AM EST [facility] MPV LAB HEMATOLOGY METHOD 06/19/2025 6:35 AM EST [facility] Comment:Not Measured nRBC 11.7(H) <=0.0 per 100 WBCs LAB HEMATOLOGY METHOD 06/19/2025 6:35 AM EST [facility] Blood Venous blood specimen / Unknown Venipuncture / Unknown 06/19/2025 4:41 AM EST 06/19/2025 4:56 AM EST us Viktoria Glynn MD LAB BLOOD ORDERABLES Final Re sult Performing Organization Address City/State/[facility] Co de Phone Number [facility] [address] [place] [address] * (ABNORMAL) Phosphorus (06/19/2025 4:41 AM EST) Phosphorus, Plasma 5.2(H) 2.5 - 4.5 mg/dL 06/19/2025 5:51 AM EST [facility] Blood Venous blood specimen / Unknown Venipuncture / Unknown 06/19/2025 4:41 AM EST 06/19/2025 5:07 AM EST us Viktoria Glynn MD LAB BLOOD ORDERABLES Final Re sult Performing Organization Address City/[facility]/ZIP Co de Phone Number [facility] [address] [place] [address] * Magnesium (06/19/2025 4:41 AM EST) Pathologist [facility] Magnesium, Plasma 2.1 1.9 - 2.4 mg/dL 06/19/2025 5:51 AM EST [facility] Blood Venous blood specimen / Unknown Venipuncture / Unknown 06/19/2025 4:41 AM EST 06/19/2025 5:07 AM EST Viktoria Glynn MD LAB BLOOD ORDERABLES Final Re sult Performing Organization Address City/[facility]/ZIP Co de Phone Number [facility] [address] [place] [address] * (ABNORMAL) Basic metabolic panel (06/19/2025 4:41 AM EST) Pathologist [facility] Glucose, Plasma 78 74 - 99 mg/dL 06/19/2025 5:51 AM EST [facility] BUN, Plasma 68(H) 8 - 23 mg/dL 06/19/2025 5:51 AM EST [facility] Creatinine, Plasma 3.07(H) 0.70 - 1.20 mg/dL 06/19/2025 5:51 AM EST [facility] BUN/Creatinine Ratio 22 06/19/2025 5:51 AM EST [facility] Sodium, Plasma 134(L) 136 - 145 mmol/L 06/19/2025 5:51 AM EST [facility] Potassium, Plasma 5.3(H) 3.6 - 4.9 mmol/L 06/19/2025 5:51 AM EST [facility] Comment:Hemolyzed - Potassiu m may be falsely elevated by approximately 0.4-0.7 mmol/L. Chloride, Plasma 96(L) 97 - 107 mmol/L 06/19/2025 5:51 AM EST [facility] CO2, Plasma 19(L) 22 - 29 mmol/L 06/19/2025 5:51 AM EST [facility] Anion Gap 19(H) 6 - 16 mmol/L 06/19/2025 5:51 AM EST [facility] Total Calcium, Plasma 8.8(L) 8.9 - 10.2 mg/dL 06/19/2025 5:51 AM EST [facility] eGFRcr 20.6 mL/min/1. 73m*2 06/19/2025 5:51 AM EST [facility] Comment:Reported eGFRcr in m L/min/1.73m2 is based the CKD-EPI 2020 equation that does not use a race coefficient. Blood Venous blood specimen / Unknown Venipuncture / Unknown 06/19/2025 4:41 AM EST 06/19/2025 5:07 AM EST us Viktoria Glynn MD LAB BLOOD ORDERABLES Final Re sult Performing Organization Address [facility] Phone Number [facility] [address] [place] [address] * Sodium, urine, random (06/18/2025 10:30 PM EST) Sodium, Urine 107 mmol/L 06/18/2025 11:13 PM EST [facility] Urine Urine specimen obtained by clean catch procedure / Unknown Non-blood Collection / Unknown 06/18/2025 10:30 PM EST 06/18/2025 10:44 PM EST us Viktoria Glynn MD LAB URINE ORDERABLES Final Re sult Performing Organization Address [facility] Co [place] Phone Number [facility] [address] [place] [address] * Urea nitrogen, urine (06/18/2025 10:30 PM EST) Urea Nitrogen, Urine 148 mg/dL 06/18/2025 11:24 PM EST [facility] Urine Urine specimen obtained by clean catch procedure / Unknown Non-blood Collection / Unknown 06/18/2025 10:30 PM EST 06/18/2025 10:44 PM EST us Viktoria Glynn MD LAB URINE ORDERABLES Final Re sult [facility] [address] [place] [address] * Creatinine, urine, random (06/18/2025 10:30 PM EST) Creatinine, Urine 15 mg/dL 06/18/2025 11:13 PM EST [facility] Urine Urine specimen obtained by clean catch procedure / Unknown Non-blood Collection / Unknown 06/18/2025 10:30 PM EST 06/18/2025 10:44 PM EST Viktoria Glynn MD LAB URINE ORDERABLES Final Re sult [facility] [address] [place] [address] * Magnesium, Plasma (06/18/2025 5:21 PM EST) Magnesium, Plasma 2.3 1.9 - 2.4 mg/dL 06/18/2025 6:01 PM EST [facility] Blood Venous blood specimen / Unknown Venipuncture / Unknown 06/18/2025 5:21 PM EST 06/18/2025 5:41 PM EST Viktoria Glynn MD LAB BLOOD ORDERABLES Final Re sult [facility] [address] [place] [address] * (ABNORMAL) Basic Metabolic Panel, Plasma (06/18/2025 5:21 PM EST) Glucose, Plasma 98 74 - 99 mg/dL 06/18/2025 6:01 PM EST [facility] BUN, Plasma 68(H) 8 - 23 mg/dL 06/18/2025 6:01 PM EST [facility] Creatinine, Plasma 3.06(H) 0.70 - 1.20 mg/dL 06/18/2025 6:01 PM EST [facility] BUN/Creatinine Ratio 22 06/18/2025 6:01 PM EST [facility] Sodium, Plasma 134(L) 136 - 145 mmol/L 06/18/2025 6:01 PM EST [facility] Potassium, Plasma 5.6(H) 3.6 - 4.9 mmol/L 06/18/2025 6:01 PM EST [facility] Chloride, Plasma 97 97 - 107 mmol/L 06/18/2025 6:01 PM EST [facility] CO2, Plasma 21(L) 22 - 29 mmol/L 06/18/2025 6:01 PM EST [facility] Anion Gap 16 6 - 16 mmol/L 06/18/2025 6:01 PM EST [facility] Total Calcium, Plasma 8.7(L) 8.9 - 10.2 mg/dL 06/18/2025 6:01 PM EST [facility] eGFRcr 20.6 mL/min/1.7 3m*2 06/18/2025 6:01 PM EST [facility] Comment:Reported eGFRcr in m L/min/1.73m2 is based the CKD-EPI 2020 equation that does not use a race coefficient. Blood Venous blood specimen / Unknown Venipuncture / Unknown 06/18/2025 5:21 PM EST 06/18/2025 5:41 PM EST Viktoria Glynn MD LAB BLOOD ORDERABLES Final Re sult [facility] [address] [place] [address] * Albumin - Ascites (06/18/2025 9:51 AM EST) Albumin, Peritoneal Fluid 0.8 g/dL 06/18/2025 10:41 AM EST [facility] Peritoneal Fluid Peritoneal cavity structure / Unknown Non-blood Collection / Unknown 06/18/2025 9:51 AM EST 06/18/2025 10:00 AM EST Narrative [facility] - 06/18/2025 10:41 AM EST REPORTING RESULTS Reference Values: No established reference interval. Results should be interpreted in comparison to the concentration in blood and in conjunction with the clinical context. This test was developed and its performance characteristics determined by [facility]. The U.S. Food and Drug Administration has not approved or cleared this test; however, FDA clearance or approval is not currently required for clinical use. The results are not intended to be used as the sole means for clinical diagnosis or patient management decisions. Viktoria Glynn MD LAB BODY FLUIDS AND STOOLS OR DERABLES Final Result Performing Organization Address City/[facility] Co de Phone Number [facility] [address] [place] [address] * (ABNORMAL) POCT glucose meter (06/18/2025 6:51 AM EST) [facility] POCT Glucose 106(H) 74 - 99 mg/dL 06/18/2025 6:52 AM EST [facility] Comment:Accuracy of a glucos e result obtained from a capillary whole blood specimen relies upon adequate, non-compromised capillary blood flow. If the capillary glucose result is not consistent with the patient's clinical signs and symptoms, glucose testing should be repeated with either an arterial or venous sample on the glucometer or sent to the main labortory for testing. Comment 06/18/2025 6:52 AM EST [facility] Dish Maker ID Joyce Ewing 6:52 AM EST [facility] Device ID [id number] 06/18/2025 6:52 AM EST [facility] Specimen Type POC Capillary 06/18/2025 6:52 AM EST [facility] Blood Capillary blood specimen / Unknown 06/18/2025 6:51 AM EST 06/18/2025 6:52 AM EST Viktoria Glynn MD LAB POINT OF CARE TE ST DOCKED DEVICE UNSOLICITED RESULTS Final Result Performing Organization Address City/[facility] Co de Phone Number [facility] [address] [place] [address] * (ABNORMAL) CBC W/O Differential (06/18/2025 3:36 AM EST) [facility] WBC Count 49.67(H) 3.70 - 10.30 10*3/uL LAB HEMATOLOGY METHOD 06/18/2025 4:39 AM EST [facility] RBC Count 6.36(H) 4.60 - 6.10 10*6/uL LAB HEMATOLOGY METHOD 06/18/2025 4:39 AM EST [facility] HGB 15.5 13.7 - 17.5 g/dL LAB HEMATOLOGY METHOD 06/18/2025 4:39 AM EST [facility] HCT 51.2(H) 40.0 - 51.0 % LAB HEMATOLOGY METHOD 06/18/2025 4:39 AM EST [facility] Platelet Count 76(L) 155 - 369 10*3/uL LAB HEMATOLOGY METHOD 06/18/2025 4:39 AM EST [facility] MCV 81 79 - 98 fL LAB HEMATOLOGY METHOD 06/18/2025 4:39 AM EST [facility] MCH 24.4(L) 26.0 - 32.0 pg LAB HEMATOLOGY METHOD 06/18/2025 4:39 AM EST [facility] MCHC 30.3(L) 30.7 - 35.5 g/dL LAB HEMATOLOGY METHOD 06/18/2025 4:39 AM EST [facility] RDW 31.2(H) 11.5 - 14.5 % LAB HEMATOLOGY METHOD 06/18/2025 4:39 AM EST [facility] MPV LAB HEMATOLOGY METHOD 06/18/2025 4:39 AM EST [facility] Comment:Not Measured nRBC 12.0(H) <=0.0 per 100 WBCs LAB HEMATOLOGY METHOD 06/18/2025 4:39 AM EST [facility] Blood Venous blood specimen / Unknown Venipuncture / Unknown 06/18/2025 3:36 AM EST 06/18/2025 3:46 AM EST us Viktoria Glynn MD LAB BLOOD ORDERABLES Final Re sult [facility] [address] [place] [address] * (ABNORMAL) Phosphorus (06/18/2025 3:36 AM EST) Pathologist [facility] Phosphorus, Plasma 5.7(H) 2.5 - 4.5 mg/dL 06/18/2025 5:24 AM EST [facility] Blood Venous blood specimen / Unknown Venipuncture / Unknown 06/18/2025 3:36 AM EST 06/18/2025 3:46 AM EST Viktoria Glynn MD LAB BLOOD ORDERABLES Final Re sult [facility] [address] [place] [address] * Magnesium (06/18/2025 3:36 AM EST) Magnesium, Plasma 2.3 1.9 - 2.4 mg/dL 06/18/2025 5:24 AM EST [facility] Blood Venous blood specimen / Unknown Venipuncture / Unknown 06/18/2025 3:36 AM EST 06/18/2025 3:46 AM EST Viktoria Glynn MD LAB BLOOD ORDERABLES Final Re sult Performing Organization Address City/[facility]/ZIP Co de Phone Number [facility] [address] [place] [address] * (ABNORMAL) Basic metabolic panel (06/18/2025 3:36 AM EST) Glucose, Plasma 65(L) 74 - 99 mg/dL 06/18/2025 5:24 AM EST [facility] BUN, Plasma 65(H) 8 - 23 mg/dL 06/18/2025 5:24 AM EST [facility] Creatinine, Plasma 2.89(H) 0.70 - 1.20 mg/dL 06/18/2025 5:24 AM EST [facility] BUN/Creatinine Ratio 22 06/18/2025 5:24 AM EST [facility] Sodium, Plasma 135(L) 136 - 145 mmol/L 06/18/2025 5:24 AM EST [facility] Potassium, Plasma 5.4(H) 3.6 - 4.9 mmol/L 06/18/2025 5:24 AM EST [facility] Chloride, Plasma 97 97 - 107 mmol/L 06/18/2025 5:24 AM EST [facility] CO2, Plasma 17(L) 22 - 29 mmol/L 06/18/2025 5:24 AM EST [facility] Anion Gap 21(H) 6 - 16 mmol/L 06/18/2025 5:24 AM EST [facility] Total Calcium, Plasma 8.7(L) 8.9 - 10.2 mg/dL 06/18/2025 5:24 AM EST [facility] eGFRcr 22.1 mL/min/1.7 3m*2 06/18/2025 5:24 AM EST [facility] Comment:Reported eGFRcr in m L/min/1.73m2 is based the CKD-EPI 2020 equation that does not use a race coefficient. Blood Venous blood specimen / Unknown Venipuncture / Unknown 06/18/2025 3:36 AM EST 06/18/2025 3:46 AM EST Viktoria Glynn MD LAB BLOOD ORDERABLES Final Re sult Performing Organization Address City/[facility]/ZIP Co de Phone Number [facility] [address] [place] [address] * (ABNORMAL) Free Hemoglobin, Plasma (06/18/2025 3:36 AM EST) Free Hemoglobin, Plasma 58(H) <=10 mg/dL 06/18/2025 6:18 AM EST [facility] Blood Venous blood specimen / Unknown Venipuncture / Unknown 06/18/2025 3:36 AM EST 06/18/2025 3:50 AM EST Prashant Ma MD LAB BLOOD ORDERABLES Final Result [facility] [address] [place] [address] * (ABNORMAL) Lactate, venous (06/18/2025 1:57 AM EST) Lactate, Venous, Whole Blood 2.4(H) 0.5 - 2.2 mmol/L LAB HEMATOLOGY METHOD 06/18/2025 2:05 AM EST [facility] Blood Venous blood specimen / Unknown Venipuncture / Unknown 06/18/2025 1:57 AM EST 06/18/2025 2:02 AM EST Viktoria Glynn MD LAB BLOOD ORDERABLES Final Re sult [facility] [address] [place] [address] * (ABNORMAL) Urinalysis, manual only (06/18/2025 1:56 AM EST) Color, Urine Yellow LAB URINALYSIS - AUTOMATED METHOD 06/18/2025 2:06 AM EST [facility] Clarity, Urine Cloudy LAB URINALYSIS - AUTOMATED METHOD 06/18/2025 2:06 AM EST [facility] Spec [place], Urine 1.021 1.005 - 1.030 LAB URINALYSIS - AUTOMATED METHOD 06/18/2025 2:06 AM EST [facility] pH, Urine 5.5 5.0 - 8.0 LAB URINALYSIS - AUTOMATED METHOD 06/18/2025 2:06 AM EST [facility] Protein, Urine 100(A) Negative mg/dL LAB URINALYSIS - AUTOMATED METHOD 06/18/2025 2:06 AM EST [facility] Glucose, Urine Negative Negative mg/dL LAB URINALYSIS - AUTOMATED METHOD 06/18/2025 2:06 AM EST [facility] Ketones, Urine Negative Negative mg/dL LAB URINALYSIS - AUTOMATED METHOD 06/18/2025 2:06 AM EST [facility] Blood, Urine Negative Negative LAB URINALYSIS - AUTOMATED METHOD 06/18/2025 2:06 AM EST [facility] Bilirubin, Urine Negative Negative LAB URINALYSIS - AUTOMATED METHOD 06/18/2025 2:06 AM EST [facility] Urobilinogen, Urine 1.0 0.2 to 1.0 mg/dL LAB URINALYSIS - AUTOMATED METHOD 06/18/2025 2:06 AM [facility] Leukocytes, Urine Negative Negative LAB URINALYSIS - AUTOMATED METHOD 06/18/2025 2:06 AM EST [facility] Nitrite, Urine Negative Negative LAB URINALYSIS - AUTOMATED METHOD 06/18/2025 2:06 AM EST [facility] Urine Urine specimen obtained by clean catch procedure / Unknown Non-blood Collection / Unknown 06/18/2025 1:56 AM EST 06/18/2025 2:02 AM EST us Prashant Ma MD LAB URINE ORDERABLES Final Result Performing Organization Address City/[facility]/ZIP Co de Phone Number [facility] [address] [place] [address] * Body fluid, cytospin, pathologist interpretation (06/17/2025 11:15 PM EST) Specimen Type Body Fluid LAB HEMATOLOGY METHOD 06/18/2025 11:52 AM EST [facility] Specimen Source, Body Fluid Peritoneal Fluid LAB HEMATOLOGY METHOD 06/18/2025 11:52 AM EST [facility] Clinical Diagnosis, Body Fluid Ascites secondary to decompensated cirrhosis with history of myelofibrosis and splenectomy LAB HEMATOLOGY METHOD 06/18/2025 11:52 AM EST [facility] Interpretation , Body Fluid No morphologic evidence of malignancy. Basophilia and eosinophilia with left-shifted granulocytes with the mixed inflammatory background. A resident was involved in the service. I attest I examined the relevant preparations for the specimens and confirmed the diagnosis or interpretation. 06/18/2025 11:52 AM EST [facility] Pathologist Signature, Body Fluid 06/18/2025 11:52 AM EST [facility] Comment:Reviewed by: Liliam Feliciano MD LAB CP ASR DISCLAIMER Yes 06/18/2025 11:52 AM EST [facility] Body Fluid Peritoneal fluid / Unknown Non-blood Collection / Unknown 06/17/2025 11:15 PM EST 06/17/2025 11:32 PM EST us Peter Hamilton MD LAB BODY FLUIDS AND STOOLS OR DERABLES Final Result [facility] [address] [place] [address] * (ABNORMAL) Body Fluid Cell Count w/ Diff (06/17/2025 11:15 PM EST) Color, Body fluid Yellow LAB HEMATOLOGY METHOD 06/18/2025 11:51 AM EST [facility] Appearance, Body fluid Cloudy(A) LAB HEMATOLOGY METHOD 06/18/2025 11:51 AM EST [facility] Volume, Body fluid 4.0 cc LAB HEMATOLOGY METHOD 06/18/2025 11:51 AM [facility] Fluid Container Tube 3 LAB HEMATOLOGY METHOD 06/18/2025 11:51 AM [facility] Red Blood Cell Count, Body fluid 3,000 uL LAB HEMATOLOGY METHOD 06/18/2025 11:51 AM [facility] Total Nucleated Cell Count, Body fluid 690 uL LAB HEMATOLOGY METHOD 06/18/2025 11:51 AM [facility] Neutrophils %, Body fluid 13 % LAB HEMATOLOGY METHOD 06/18/2025 11:51 AM [facility] Lymphocytes %, Body fluid 63 % LAB HEMATOLOGY METHOD 06/18/2025 11:51 AM [facility] Monocytes/Macro phages %, Body fluid 10 % LAB HEMATOLOGY METHOD 06/18/2025 11:51 AM [facility] Eosinophils %, Body fluid 5 % LAB HEMATOLOGY METHOD 06/18/2025 11:51 AM [facility] Lining/Mesothel ial Cells %, Body fluid 1 % LAB HEMATOLOGY METHOD 06/18/2025 11:51 AM [facility] Other Cells %, Body fluid 1 % LAB HEMATOLOGY METHOD 06/18/2025 11:51 AM [facility] Comment:Left-shifted granulo cyte Neutrophils Absolute (PMN), Body fluid 90 uL LAB HEMATOLOGY METHOD 06/18/2025 11:51 AM [facility] Lymphocytes Absolute, Body fluid 435 uL LAB HEMATOLOGY METHOD 06/18/2025 11:51 AM [facility] Monocytes/Macro phages Absolute, Body fluid 69 uL LAB HEMATOLOGY METHOD 06/18/2025 11:51 AM [facility] Eosinophils Absolute, Body fluid 35 uL LAB HEMATOLOGY METHOD 06/18/2025 11:51 AM [facility] Basophils Absolute, Body fluid 48 uL LAB HEMATOLOGY METHOD 06/18/2025 11:51 AM [facility] Lining/Mesothel ial Cells Absolute, Body fluid 7 uL LAB HEMATOLOGY METHOD 06/18/2025 11:51 AM [facility] Other Cells Absolute, Body fluid 7 uL LAB HEMATOLOGY METHOD 06/18/2025 11:51 AM [facility] Comment, Body fluid None LAB HEMATOLOGY METHOD 06/18/2025 11:51 AM [facility] Comment:This is an appended report. These results have been appended to a previously preliminary verified report. Basophils %, Body fluid 7 % LAB HEMATOLOGY METHOD 06/18/2025 11:51 AM EST [facility] Body Fluid Peritoneal fluid / Unknown Non-blood Collection / Unknown 06/17/2025 11:15 PM EST 06/17/2025 11:32 PM EST Peter Hamilton MD LAB BODY FLUIDS AND STOOLS ORDERABLES NO SPECIMEN TYPE/SOURCE Final Result [facility] [address] [place] [address] * Amylase, Peritoneal Fluid (06/17/2025 11:14 PM EST) Amylase Peritoneal Fluid 25 U/L 06/18/2025 12:00 AM EST [facility] Ascites Peritoneal cavity structure / Unknown 06/17/2025 11:14 PM EST 06/17/2025 11:32 PM EST Narrative [facility] - 06/18/2025 12:00 AM EST Reference Values: No established reference interval. Interpret with caution. This test was developed and its performance characteristics determined by [facility]. The U.S. Food and Drug Administration has not approved or cleared this test; however, FDA clearance or approval is not currently required for clinical use. The results are not intended to be used as the sole means for clinical diagnosis or patient management decisions. Peritoneal Fluid: In normal peritoneal fluid, amylase activity is comparable to that observed in serum or plasma. A peritoneal fluid value that is three to five times greater than a corresponding serum/plasma level suggests an underlying pancreatic process, including acute pancreatitis and pancreatic pseudocyst. Note: Interpretive information was assimilated from a literature search (e.g., studies, guidelines, textbooks) related to body fluid testing. Information should be interpreted with caution because the literature sources cross many decades, analyzers and reagent formulations. All information should be viewed in the context of the patient's clinical presentation. Body fluid amylase should not be used as sole evidence of malignancy for diagnostic purposes and should be reviewed in correlation with cytology, plasma/serum results, and other clinical evidence. us Peter Hamilton MD LAB BODY FLUIDS AND STOOLS OR DERABLES Final Result Performing Organization Address [facility] Co de Phone Number [facility] [address] [place] [address] * Lactate dehydrogenase, body fluid (06/17/2025 11:14 PM EST) LDH, Fluid 114 U/L 06/18/2025 12:00 AM EST [facility] Ascites Peritoneal cavity structure / Unknown 06/17/2025 11:14 PM EST 06/17/2025 11:32 PM EST Narrative [facility] - 06/18/2025 12:00 AM EST No established reference interval. Results should be interpreted in comparison to the concentration in blood and in conjunction with the clinical context. Peritoneal fluid LDH may be useful in differentiating secondary bacterial peritonitis (GI perforation) from spontaneous bacterial peritonitis when at least 2 of 3 of the following is met: 1) Total protein > 1g/dL; 2) LDH >upper limit of normal for plasma; 3) Glucose < 50 mg/dL. Peter Hamilton MD LAB BODY FLUIDS AND STOOLS OR DERABLES Final Result Performing Organization Address [facility] Co de Phone Number [facility] [address] [place] [address] * Glucose, Peritoneal Fluid (06/17/2025 11:14 PM EST) Glucose, Fluid 96 mg/dL 06/18/2025 12:00 AM EST [facility] Ascites Peritoneal cavity structure / Unknown 06/17/2025 11:14 PM EST 06/17/2025 11:32 PM EST Narrative [facility] - 06/18/2025 12:00 AM EST Peritoneal/Ascites No established reference interval. Results should be interpreted in comparison to the concentration in blood and in conjunction with the clinical context. Normal peritoneal fluid glucose is similar to serum concentrations. Decreased ascitic fluid to serum glucose ratios can occur with bacterial peritonitis. Secondary peritonitis is likely if 2 of 3 of the following is met in peritoneal fluid: 1) Total protein > 1g/dL; 2) LDH >upper limit of normal for plasma; 3) Glucose < 50 mg/dL. Peter Hamilton MD LAB BODY FLUIDS AND STOOLS OR DERABLES Final Result Performing Organization Address City/[facility]/ZIP Co de Phone Number [facility] [address] [place] [address] * Total Protein, Peritoneal Fluid (06/17/2025 11:14 PM EST) Total Protein, Fluid 1.5 g/dL 06/18/2025 12:00 AM EST [facility] Ascites Peritoneal cavity structure / Unknown 06/17/2025 11:14 PM EST 06/17/2025 11:32 PM EST Narrative [facility] - 06/18/2025 12:00 AM EST This test was developed and its performance characteristics determined by [facility]. The U.S. Food and Drug Administration has not approved or cleared this test. However, FDA clearance or approval is not currently required for clinical use. The results are not intended to be used as the sole means for clinical diagnosis or patient management decisions. Peter Hamilton MD LAB BODY FLUIDS AND STOOLS OR DERABLES Final Result Performing Organization Address City/[facility]/ZIP Co de Phone Number [facility] [address] [place] [address] * Body Fluid Culture and Gram Stain (06/17/2025 11:14 PM EST) Culture No growth at day 4 2024 7:13 AM EST [facility] Gram Stain Result Rare Polymorphonuclear leukocytes 06/21/2025 7:13 AM EST [facility] Gram Stain Result No organisms seen 06/21/2025 7:13 AM EST [facility] Peritoneal Fluid Peritoneal cavity structure / Unknown Non-blood Collection / Unknown 06/17/2025 11:14 PM EST 06/17/2025 11:31 PM EST Peter Hamilton MD LAB MICROBIOLOGY - GENERAL OR DERABLES Final Result Performing Organization Address City/[facility]/ZIP Co de Phone Number [facility] [address] [place] [address] * ECG Adult (06/17/2025 10:23 PM EST) EKG DIAGNOSIS CLASS Abnormal MUSE ECG Ventricular Rate 92 BPM MUSE ECG Atrial Rate 92 BPM MUSE ECG WA Interval 174 ms MUSE ECG QRSD Interval 98 ms MUSE ECG QT Interval 378 ms MUSE ECG QTC Interval 467 ms MUSE ECG P Bliss 44 degrees MUSE ECG R Bliss 112 degrees MUSE ECG T Wave Bliss 9 degrees MUSE ECG Diagnosis Normal sinus rhythm MUSE ECG Diagnosis Incomplete right bundle branch block MUSE ECG Diagnosis Left posterior fascicular block MUSE ECG Diagnosis Anterior infarct , age undetermined MUSE ECG Diagnosis MUSE ECG Diagnosis MUSE ECG Diagnosis Confirmed by Tonja Caballero ([id number]) on 06/18/2025 12:01:38 PM MUSE ECG 06/17/2025 10:2 3 PM EST 06/18/2025 12:01 PM EST us Peter Hamilton MD ECG ORDERABLES Final Result MUSE ECG * XR Chest 1 View (06/17/2025 5:50 PM EST) Anatomical Region Laterality Modality Chest Digital Radiogra phy Impressions 06/17/2025 6:11 PM EST No acute finding CRITICAL RESULT: No. COMMUNICATION: Per this written report. Drafted by Alfonzo John MD on 06/17/2025 6:10 PM Final report signed by Alfonzo John MD on 06/17/2025 6:11 PM Narrative 06/17/2025 6:11 PM EST CLINICAL INDICATION: SOA, swelling TECHNIQUE: XR CHEST 1 VIEW COMPARISON: May 20, 2025 FINDINGS: Atelectasis or scarring in the left midlung. Lungs are otherwise clear.. Heart and mediastinal contours are within normal limits. No pneumothorax. No pleural effusion. Bony structures are unremarkable. Procedure Note Alfonzo John MD - 06/17/2025 CLINICAL INDICATION: SOA, swelling TECHNIQUE: XR CHEST 1 VIEW COMPARISON: May 20, 2025 FINDINGS: Atelectasis or scarring in the left midlung. Lungs are otherwise clear..Heart and mediastinal contours are within normal limits. No pneumothorax.No pleural effusion. Bony structures are unremarkable. IMPRESSION: No acute finding CRITICAL RESULT: No. COMMUNICATION: Per this written report. Drafted by Alfonzo John MD on 06/17/2025 6:10 PM Final report signed by Alfonzo John MD on 06/17/2025 6:11 PM Peter Hamilton MD IMG XR PROCEDURES Final Resul t * Morphology (06/17/2025 5:16 PM EST) Polychromasia Slight LAB HEMATOLOGY METHOD 06/17/2025 7:17 PM EST [facility] Echinocytes Present LAB HEMATOLOGY METHOD 06/17/2025 7:17 PM EST [facility] Pappenheimer Bodies Present LAB HEMATOLOGY METHOD 06/17/2025 7:17 PM EST [facility] RBC Morphology Slide Reviewed LAB HEMATOLOGY METHOD 06/17/2025 7:17 PM EST [facility] Target Cells Present LAB HEMATOLOGY METHOD 06/17/2025 7:17 PM EST [facility] Platelet Estimate Platelet smear estimate consistent with automated count LAB HEMATOLOGY METHOD 06/17/2025 7:17 PM EST [facility] Blood Venous blood specimen / Unknown Venipuncture / Unknown 06/17/2025 5:16 PM EST 06/17/2025 5:18 PM EST Peter Hamilton MD LAB BLOOD ORDERABLES Final Re sult [facility] [address] [place] [address] * (ABNORMAL) Manual Differential (06/17/2025 5:16 PM EST) Blasts % 0 % LAB HEMATOLOGY METHOD 06/17/2025 7:17 PM EST [facility] Promyelocytes % 0 % LAB HEMATOLOGY METHOD 06/17/2025 7:17 PM EST [facility] Myelocytes % 1 % LAB HEMATOLOGY METHOD 06/17/2025 7:17 PM EST [facility] Metamyelocytes % 0 % LAB HEMATOLOGY METHOD 06/17/2025 7:17 PM EST [facility] Neutrophils % 86 % LAB HEMATOLOGY METHOD 06/17/2025 7:17 PM EST [facility] Lymphocytes % 2 % LAB HEMATOLOGY METHOD 06/17/2025 7:17 PM [facility] Reactive Lymphocytes % 0 % LAB HEMATOLOGY METHOD 06/17/2025 7:17 PM [facility] Monocytes % 8 % LAB HEMATOLOGY METHOD 06/17/2025 7:17 PM [facility] Eosinophils % 2 % LAB HEMATOLOGY METHOD 06/17/2025 7:17 PM [facility] Basophils % 1 % LAB HEMATOLOGY METHOD 06/17/2025 7:17 PM [facility] Blasts Absolute 0.00 10*3/UL LAB HEMATOLOGY METHOD 06/17/2025 7:17 PM [facility] Promyelocytes Absolute 0.00 10*3/uL LAB HEMATOLOGY METHOD 06/17/2025 7:17 PM [facility] Myelocytes Absolute 0.56 10*3/uL LAB HEMATOLOGY METHOD 06/17/2025 7:17 PM [facility] Metamyelocytes Absolute 0.00 10*3/uL LAB HEMATOLOGY METHOD 06/17/2025 7:17 PM [facility] Neutrophils Absolute 48.11(H) 1.60 - 6.10 10*3/uL LAB HEMATOLOGY METHOD 06/17/2025 7:17 PM [facility] Lymphocytes Absolute 1.12(L) 1.20 - 3.90 10*3/uL LAB HEMATOLOGY METHOD 06/17/2025 7:17 PM [facility] Reactive Lymphocytes Absolute 0.00 10*3/uL LAB HEMATOLOGY METHOD 06/17/2025 7:17 PM [facility] Monocytes Absolute 4.48(H) 0.30 - 0.90 10*3/uL LAB HEMATOLOGY METHOD 06/17/2025 7:17 PM [facility] Eosinophils Absolute 1.12(H) 0.00 - 0.50 10*3/uL LAB HEMATOLOGY METHOD 06/17/2025 7:17 PM [facility] Basophils Absolute 0.56(H) 0.00 - 0.10 10*3/uL LAB HEMATOLOGY METHOD 06/17/2025 7:17 PM [facility] Blood Venous blood specimen / Unknown Venipuncture / Unknown 06/17/2025 5:16 PM EST 06/17/2025 5:18 PM EST us Peter Hamilton MD LAB BLOOD ORDERABLES Final Re sult Performing Organization Address [facility]/ZIP Co de Phone Number [facility] [address] [place] [address] * Gold Top (06/17/2025 5:16 PM EST) Pathologist [facility] Extra Hold for add-ons 06/17/2025 8:01 PM EST [facility] Comment:Auto resulted. Blood Venous blood specimen / Unknown 06/17/2025 5:16 PM EST 06/17/2025 5:20 PM EST us Peter Hamilton MD LAB BLOOD ORDERABLES Final Re sult Performing Organization Address [facility] Co de Phone Number [facility] [address] [place] [address] * Hepatitis C Antibody - ED W/Reflex to HCV Quant PCR (06/17/2025 5:16 PM EST) [facility] Hepatitis C Antibody Negative Negative 06/17/2025 6:20 PM EST [facility] Blood Venous blood specimen / Unknown Venipuncture / Unknown 06/17/2025 5:16 PM EST 06/17/2025 5:39 PM EST us Peter Hamilton MD LAB BLOOD ORDERABLES Final Re sult Performing Organization Address [facility] Co de Phone Number [facility] [address] [place] [address] * (ABNORMAL) BNP (06/17/2025 5:16 PM EST) Pathologist [facility] N-Terminal, PROBNP, Plasma 8,695(H) 0 - 899 pg/mL 06/17/2025 5:47 PM EST [facility] Blood Venous blood specimen / Unknown Venipuncture / Unknown 06/17/2025 5:16 PM EST 06/17/2025 5:18 PM EST us Peter Hamilton MD LAB BLOOD ORDERABLES Final Re sult [facility] [address] [place] [address] * (ABNORMAL) CMP (06/17/2025 5:16 PM EST) Glucose, Plasma 90 74 - 99 mg/dL 06/17/2025 5:47 PM EST [facility] BUN, Plasma 66(H) 8 - 23 mg/dL 06/17/2025 5:47 PM EST [facility] Creatinine, Plasma 2.90(H) 0.70 - 1.20 mg/dL 06/17/2025 5:47 PM EST [facility] BUN/Creatinine Ratio 23 06/17/2025 5:47 PM EST [facility] Sodium, Plasma 131(L) 136 - 145 mmol/L 06/17/2025 5:47 PM EST [facility] Potassium, Plasma 5.1(H) 3.6 - 4.9 mmol/L 06/17/2025 5:47 PM EST [facility] Chloride, Plasma 97 97 - 107 mmol/L 06/17/2025 5:47 PM EST [facility] CO2, Plasma 21(L) 22 - 29 mmol/L 06/17/2025 5:47 PM EST [facility] Anion Gap 13 6 - 16 mmol/L 06/17/2025 5:47 PM EST [facility] Total Calcium, Plasma 8.7(L) 8.9 - 10.2 mg/dL 06/17/2025 5:47 PM EST [facility] Total Protein 6.8 6.3 - 7.9 g/dL 06/17/2025 5:47 PM EST [facility] Albumin, Plasma 3.4(L) 3.5 - 5.2 g/dL 06/17/2025 5:47 PM EST [facility] AST, Plasma 54(H) 10 - 50 U/L 06/17/2025 5:47 PM EST [facility] Comment:Hemolyzed, result ma y be falsely increased. ALT, Plasma 18 10 - 50 U/L 06/17/2025 5:47 PM EST [facility] Alkaline Phosphatase, Plasma 360(H) 40 - 115 U/L 06/17/2025 5:47 PM EST [facility] Total Bilirubin, Plasma 2.2(H) 0.2 - 1.1 mg/dL 06/17/2025 5:47 PM EST [facility] eGFRcr 22.0 mL/min/1.7 3m*2 06/17/2025 5:47 PM EST [facility] Comment:Reported eGFRcr in m L/min/1.73m2 is based the CKD-EPI 2020 equation that does not use a race coefficient. Blood Venous blood specimen / Unknown Venipuncture / Unknown 06/17/2025 5:16 PM EST 06/17/2025 5:18 PM EST us Peter Hamilton MD LAB BLOOD ORDERABLES Final Re sult [facility] [address] [place] [address] * (ABNORMAL) CBC w/diff (06/17/2025 5:16 PM EST) WBC Count 55.94(H) 3.70 - 10.30 10*3/uL LAB HEMATOLOGY METHOD 06/17/2025 7:17 PM EST [facility] RBC Count 6.12(H) 4.60 - 6.10 10*6/uL LAB HEMATOLOGY METHOD 06/17/2025 7:17 PM EST [facility] HGB 15.1 13.7 - 17.5 g/dL LAB HEMATOLOGY METHOD 06/17/2025 7:17 PM EST [facility] HCT 49.3 40.0 - 51.0 % LAB HEMATOLOGY METHOD 06/17/2025 7:17 PM EST [facility] Platelet Count 71(L) 155 - 369 10*3/uL LAB HEMATOLOGY METHOD 06/17/2025 7:17 PM EST [facility] MCV 81 79 - 98 fL LAB HEMATOLOGY METHOD 06/17/2025 7:17 PM EST [facility] MCH 24.7(L) 26.0 - 32.0 pg LAB HEMATOLOGY METHOD 06/17/2025 7:17 PM EST [facility] MCHC 30.6(L) 30.7 - 35.5 g/dL LAB HEMATOLOGY METHOD 06/17/2025 7:17 PM EST [facility] RDW 30.4(H) 11.5 - 14.5 % LAB HEMATOLOGY METHOD 06/17/2025 7:17 PM EST [facility] MPV LAB HEMATOLOGY METHOD 06/17/2025 7:17 PM EST [facility] Comment:Not Measured nRBC 10.2(H) <=0.0 per 100 WBCs LAB HEMATOLOGY METHOD 06/17/2025 7:17 PM EST [facility] Differential Type Manual LAB HEMATOLOGY METHOD 06/17/2025 7:17 PM EST [facility] Blood Venous blood specimen / Unknown Venipuncture / Unknown 06/17/2025 5:16 PM EST 06/17/2025 5:18 PM EST Narrative [facility] - 06/17/2025 7:17 PM EST Therapeutic decision making should be [...] Granulocytes is no longer being reported. us Peter Hamilton MD LAB BLOOD ORDERABLES Final Re sult [facility] [address] [place] [address] * EKG now - STAT (adult) (06/17/2025 4:56 PM EST) EKG DIAGNOSIS CLASS Abnormal MUSE ECG Ventricular Rate 91 BPM MUSE ECG Atrial Rate 91 BPM MUSE ECG WA Interval 176 ms MUSE ECG QRSD Interval 98 ms MUSE ECG QT Interval 374 ms MUSE ECG QTC Interval 460 ms MUSE ECG P Bliss 48 degrees MUSE ECG R Bliss 109 degrees MUSE ECG T Wave Bliss 2 degrees MUSE ECG Diagnosis Normal sinus rhythm MUSE ECG Diagnosis Incomplete right bundle branch block MUSE ECG Diagnosis Possible Right ventricular hypertrophy MUSE ECG Diagnosis Cannot rule out Anterior infarct , age undetermined MUSE ECG Diagnosis MUSE ECG Diagnosis MUSE ECG Diagnosis Confirmed by Tonja Caballero ([id number]) on 06/18/2025 11:20:36 AM MUSE ECG 06/17/2025 4:56 PM EST 06/18/2025 11:20 AM EST us Peter Hamilton MD ECG ORDERABLES Final Result MUSE ECG * WA ABDOM PARACENTESIS DX/THER W IMAGING GUIDANCE, HC ABDOMINAL PARACENTESIS DIAGNOSIS/THERAPY W IMAGING GUIDANCE (06/17/2025 4:16 PM EST) Anatomical Region Laterality Modality Other Narrative 06/17/2025 4:16 PM EST Petre Hamilton MD 06/21/2025 9:26 AM Paracentesis Performed by: Gil Robles DO Authorized by: Peter Hamilton MD Consent: Consent obtained: Written Consent given by: Patient Risks discussed: Bleeding, bowel perforation, infection and pain Alternatives discussed: No treatment and delayed treatment [place] protocol: Procedure explained and questions answered to patient or proxy's satisfaction: yes Test results available: yes Required blood products, implants, devices, and special equipment available: yes Patient identity confirmed: Arm band Attending Supervision?: yes Pre-procedure details: Procedure purpose: Diagnostic Preparation: Patient was prepped and draped in usual sterile fashion Anesthesia: Anesthesia method: Local infiltration Local anesthetic: Lidocaine 1% WITH epi Procedure details: Ultrasound guidance: yes Dressinx4 sterile gauze and adhesive bandage Post-procedure details: Procedure completion: Tolerated well, no immediate complications Peter Hamilton MD IN CLINIC/BEDSIDE ORDERABLES Final Result documented in this encounter Visit Diagnoses Diagnosis Heart failure- Primary Unspecified heart failure Shortness of breath Other ascites SBP (spontaneous bacterial peritonitis) Spontaneous bacterial peritonitis Shortness of breath documented in this encounter Admitting Diagnoses Diagnosis Heart failure Unspecified heart failure documented in this encounter Administered Medications Inactive Administered Medications - up to 3 most recent administrations Medication Order MAR Action Action Date Dose Rate Site acetaminophen (Tylenol) tablet 500 mg 500 mg, Oral, Every 8 hours PRN, Starting on Ban 06/17/25 at 2344, Until Sat06/25/25 at 1920, Routine, Mild Plus Pain with CPOT DVPRS FLACC PAINAD NPASS NRS Benz-Quintero Faces score of 1 or greater OR NIPS score 2 or greater, fever Given 06/25/2025 11:49 AM EST 500 mg Given 06/24/2025 3:52 PM EST 500 mg Given 06/21/2025 8:29 PM EST 500 mg bismuth subsalicylate (Pepto Bismol) 262 MG/15ML suspension 15 mL 15 mL, Oral, Every 6 hours PRN, Starting on 06/20/25 at 2150, Until Sat06/25/25 at 1920, Routine, indigestion Given 06/21/2025 12:12 PM EST 15 mL Given 06/20/2025 10:44 PM EST 15 mL bumetanide (Bumex) 0.25 mg/mL 100 mL infusion (undiluted in viaflex bag) 1 mg/hr (4 mL/hr), 0.25 mg/mL, Intravenous, Continuous, Starting on 06/19/25 at 1245, Until 06/21/25 at 1437, Routine Rate Change - Dual Sign 06/21/2025 7:22 AM EST 1 mg/hr 4 mL/hr Rate/Dose Verify 06/21/2025 4:00 AM EST 2 mg/hr 8 mL/hr New Bag 06/20/2025 11:59 PM EST 2 mg/hr 8 mL/hr bumetanide (Bumex) 4 mg in sodium chloride 0.9 % 50 mL IVPB 4 mg, Intravenous, Once, 1 dose, On Sat06/22/25 at 1200, at 284 mL/hr, Routine New Bag 06/22/2025 12:01 PM EST 4 mg 284 mL/hr bumetanide (Bumex) 4 mg in sodium chloride 0.9 % 50 mL IVPB 4 mg, Intravenous, Once, 1 dose, On Sat06/22/25 at 1745, at 284 mL/hr, Routine New Bag 06/22/2025 5:59 PM EST 4 mg 284 mL/hr bumetanide (Bumex) injection 2 mg 2 mg, Intravenous, Once, 1 dose, On Ban 06/17/25 at 2350, Routine Given 06/18/2025 1:30 AM EST 2 mg bumetanide (Bumex) injection 2 mg 2 mg, Intravenous, Once, 1 dose, On Sat06/18/25 at 1320, Routine Given 06/18/2025 1:29 PM EST 2 mg bumetanide (Bumex) injection 2 mg 2 mg, Intravenous, Once, 1 dose, On Sat06/18/25 at 1710, Routine Given 06/18/2025 5:43 PM EST 2 mg bumetanide (Bumex) injection 2 mg 2 mg, Intravenous, Once, 1 dose, On 06/19/25 at 1245, Routine Given 06/19/2025 1:31 PM EST 2 mg bumetanide (Bumex) tablet 2 mg 2 mg, Oral, Once, 1 dose, On Sat06/18/25 at 0930, Routine Given 06/18/2025 10:44 AM EST 2 mg bumetanide (Bumex) tablet 2 mg 2 mg, Oral, Once, 1 dose, On Sat06/25/25 at 1030, Routine Given 06/25/2025 10:04 AM EST 2 mg bumetanide (Bumex) tablet 4 mg 4 mg, Oral, 2 times daily (0900 & 1500), First dose on Sat06/23/25 at 1045, Until Discontinued, Routine Given 06/23/2025 3:14 PM EST 4 mg Given 06/23/2025 12:26 PM EST 4 mg cefTRIAXone (Rocephin) 2 g in sodium chloride 0.9% 100 mL IVPB (vial adapter required) 2 g, Intravenous, Every 24 hours, 5 doses, First dose on Sat06/18/25 at 0900, Last dose on Sat06/22/25 at 0900, Routine New Bag 06/18/2025 9:18 AM EST 2 g 220 mL/hr chlorothiazide (Diuril) injection 500 mg 500 mg, Intravenous, Once, 1 dose, On 06/19/25 at 1245, Routine Given 06/19/2025 1:31 PM EST 500 mg ciprofloxacin (Cipro) tablet 500 mg 500 mg, Oral, Daily, First dose on Sat06/18/25 at 1320, Until Discontinued, Routine Given 06/25/2025 8:05 AM EST 500 mg Given 06/24/2025 9:25 AM EST 500 mg Given 06/23/2025 8:10 AM EST 500 mg diphenhydrAMINE (Benadryl) injection 50 mg 50 mg, Intravenous, Every 6 hours PRN, Starting on Sat06/21/25 at 2041, Until Tu06/22/25 at 0725, Routine, itching Given 06/21/2025 9:02 PM EST 50 mg diphenhydrAMINE-zinc acetate (Benadryl) cream 1 Application Topical, 3 times daily PRN, Starting on Sat06/24/25 at 1401, Until Sat06/25/25 at 1920, Routine, itching Given 06/25/2025 8:05 AM EST 1 Applica tion Given 06/24/2025 2:31 PM EST 1 Application empagliflozin (Jardiance) tablet 10 mg 10 mg, Oral, Daily, First dose on Sat06/18/25 at 0925, Until Discontinued, RoutineIndications:Left Systolic Heart Failure Given 06/19/2025 8: 43 AM EST 10 mg Given 06/18/2025 10:44 AM EST 10 mg ferrous sulfate EC tablet 324 mg 324 mg, Oral, Daily with breakfast, First dose on Sat06/18/25 at 0800, Until Discontinued, Routine Given 06/25/2025 8:05 AM EST 324 mg Given 06/24/2025 8:39 AM EST 324 mg Given 06/23/2025 8:10 AM EST 324 mg gabapentin (Neurontin) capsule 300 mg 300 mg, Oral, 3 times daily, First dose on Sat06/17/25 at 2355, Until Discontinued, Routine Given 06/25/2025 8:04 AM EST 300 mg Given 06/24/2025 8:06 PM EST 300 mg Given 06/24/2025 3:48 PM EST 300 mg heparin (porcine) injection 5,000 Units 5,000 Units, Subcutaneous, Every 8 hours scheduled, First dose on Ban 06/17/25 at 2350, Until Discontinued, Routine Given 06/25/2025 1:38 PM EST 5,000 Units Left Lower Abdomen Given 06/25/2025 6:18 AM EST 5,000 Units R ight Lower Abdomen Given 06/24/2025 9:26 PM EST 5,000 Units L eft Lower Abdomen HYDROcodone-acetaminophen ([place]) 5-325 MG per tablet 10 mg of hydrocodone 10 mg of hydrocodone, Oral, Every 6 hours PRN, Starting on Ban 06/17/25 at 2352, Until Sat06/25/25 at 1920, Moderate Severe Pain with CPOT score of 3 or greater OR FLACC PAINAD NPASS NRS Benz-Quintero Faces score of 4 or greater OR DVPRS NIPS score of 5 or greater Given 06/25/2025 11:47 AM EST 10 mg of hydroco done Given 06/25/2025 4:28 AM EST 10 mg of hydrocodone Given 06/24/2025 9:26 PM EST 10 mg of hydrocodone hydrOXYzine pamoate (Vistaril) capsule 25 mg 25 mg, Oral, Daily PRN, Starting on 06/19/25 at 1326, Until 06/19/25 at 1817, Routine, itching Given 06/19/2025 1:39 PM EST 25 mg magnesium sulfate in D5W IVPB 1 g 1 g, Intravenous, Once, 1 dose, On 06/19/25 at 1830, Routine New Bag 06/19/2025 5:47 PM EST 1 g 1 00 mL/hr magnesium sulfate IVPB 2 g 2 g, Intravenous, Once, 1 dose, On 06/20/25 at 1845, Routine New Bag 06/20/2025 6:55 PM EST 2 g 2 5 mL/hr magnesium sulfate IVPB 2 g 2 g, Intravenous, Once, 1 dose, On Tu06/22/25 at 0900, Routine New Bag 06/22/2025 9:29 AM EST 2 g 2 5 mL/hr melatonin tablet 3 mg 3 mg, Oral, Nightly PRN, Starting on Ban 06/17/25 at 2348, Until Sat06/25/25 at 1920, Routine, sleep Given 06/22/2025 9:35 PM EST 3 mg Given 06/21/2025 8:28 PM EST 3 mg Given 06/20/2025 8:54 PM EST 3 mg metOLazone (Zaroxolyn) tablet 10 mg 10 mg, Oral, Once, 1 dose, On Sat06/18/25 at 1710, Routine Given 06/18/2025 5:44 PM EST 10 mg metOLazone (Zaroxolyn) tablet 10 mg 10 mg, Oral, Once, 1 dose, On Sat06/22/25 at 1745, Routine Given 06/22/2025 6:00 PM EST 10 mg metoprolol succinate XL (Toprol-XL) 24 hr tablet 25 mg 25 mg, Oral, Daily, First dose on Sat06/24/25 at 0900, Until Discontinued, Routine Given 06/25/2025 8:04 AM EST 25 mg Given 06/24/2025 8:40 AM EST 25 mg metoprolol tartrate (Lopressor) split tablet 12.5 mg 12.5 mg, Oral, 2 times daily, First dose on Sat06/22/25 at 1400, Until Discontinued, Routine Given 06/23/2025 8:10 AM EST 12.5 mg Given 06/22/2025 9:35 PM EST 12.5 mg Given 06/22/2025 2:20 PM EST 12.5 mg metoprolol tartrate (Lopressor) split tablet 12.5 mg 12.5 mg, Oral, 2 times daily, 1 dose, First dose (after last modification) on Sat06/23/25 at 2100, Routine Given 06/23/2025 8:49 PM EST 12.5 mg metoprolol tartrate (Lopressor) tablet 25 mg 25 mg, Oral, Once, 1 dose, On Sat06/21/25 at 1345, STAT Given 06/21/2025 1:10 PM EST 25 mg nystatin (Mycostatin) [id number] UNIT/GM powder 1 Application Topical, 2 times daily, First dose on Sat06/18/25 at 1440, Until Discontinued, Routine Given 06/25/2025 8:05 AM EST 1 Application Given 06/24/2025 8:15 PM EST 1 Application Given 06/24/2025 9:25 AM EST 1 Application ondansetron (Zofran) 4 MG/5ML solution 4 mg 4 mg, Oral, Every 6 hours PRN, Starting on Sat06/17/25 at 2343, Until Sat06/25/25 at 1920, Routine, nausea, vomiting ondansetron (Zofran) injection 4 mg 4 mg, Intravenous, Every 6 hours PRN, Starting on Sat06/17/25 at 2343, Until Sat06/25/25 at 1920, Routine, vomiting, nausea ondansetron ODT (Zofran-ODT) disintegrating tablet 4 mg 4 mg, Oral, Every 6 hours PRN, Starting on Sat06/17/25 at 2343, Until Sat06/25/25 at 1920, Routine, nausea, vomiting polyethylene glycol (Miralax) packet 17 g 17 g, Oral, Daily, First dose on Sat06/17/25 at 2345, Until Discontinued, Routine Given 06/24/2025 8:39 AM EST 17 g Given 06/23/2025 8:09 AM EST 17 g Given 06/22/2025 9:27 AM EST 17 g potassium chloride (Klor-Con) packet 40 mEq 40 mEq, Oral, Every 2 hours, 2 doses, First dose on Sat06/22/25 at 0815, Last dose on Sat06/22/25 at 1015, Routine Given 06/22/2025 11:20 AM EST 40 mEq Given 06/22/2025 9:34 AM EST 40 mEq potassium chloride CR (Klor-Con) ER tablet 20 mEq 20 mEq, Oral, Once, 1 dose, On Sat06/25/25 at 0800, Routine Given 06/25/2025 8:05 AM EST 20 mEq potassium chloride CR (Klor-Con) ER tablet 40 mEq 40 mEq, Oral, Every 2 hours, 2 doses, First dose on Sat06/21/25 at 1800, Last dose on Sat06/21/25 at 2000, Routine Given 06/21/2025 8:28 PM EST 40 mEq Given 06/21/2025 5:12 PM EST 40 mEq potassium chloride CR (Klor-Con) ER tablet 40 mEq 40 mEq, Oral, Once, 1 dose, On Sat06/23/25 at 0115, Routine Given 06/23/2025 1:44 AM EST 40 mEq potassium chloride CR (Klor-Con) ER tablet 40 mEq 40 mEq, Oral, Once, 1 dose, On Sat06/23/25 at 1230, Routine Given 06/23/2025 12:26 PM EST 40 mEq potassium chloride CR (Klor-Con) ER tablet 40 mEq 40 mEq, Oral, Once, 1 dose, On Sat06/24/25 at 0215, Routine Given 06/24/2025 2:00 AM EST 40 mEq potassium chloride CR (Klor-Con) ER tablet 40 mEq 40 mEq, Oral, Once, 1 dose, On Sat06/24/25 at 1130, Routine Given 06/24/2025 11:27 AM EST 40 mEq rosuvastatin (Crestor) tablet 10 mg 10 mg, Oral, Nightly, First dose on Sat06/17/25 at 2355, Until Discontinued Given 06/24/2025 8:05 PM EST 10 mg Given 06/23/2025 8:49 PM EST 10 mg Given 06/22/2025 9:35 PM EST 10 mg senna (Senokot) tablet 17.2 mg 17.2 mg, Oral, Nightly, First dose on Sat06/25/25 at 2100, Until Discontinued, Routine sodium chloride 0.9 % flush 10 mL 10 mL, Intravenous, Every 12 hours, First dose on Sat06/17/25 at 2345, Until Discontinued, Routine Given 06/25/2025 8:05 AM EST 10 mL Given 06/24/2025 11:33 PM EST 10 mL Given 06/24/2025 9:26 AM EST 10 mL sodium chloride 0.9 % flush 10 mL 10 mL, Intravenous, As needed, Starting on Sat06/17/25 at 2342, Until Sat06/25/25 at 1920, Routine, line care Given 06/18/2025 10:44 AM EST 10 mL white petrolatum (VASELINE) gel Topical, As needed, Starting on Sat06/18/25 at 1408, Until Sat06/25/25 at 1920, Routine, dry skin, dry skin or itching documented in this encounter Active and Recently Administered Medications Times are shown in EST. Scheduled Medication Order 06/23/2025 06/24/2025 06/25/2025 bumetanide (Bumex) tablet 2 mg (COMPLETED) 2 mg, Oral, Once, 1 dose, On Sat06/25/25 at 1030, Routine 1004 (Given - Provid er: Bella Boland RN) bumetanide (Bumex) tablet 4 mg (CANCELED) 4 mg, Oral, 2 times daily (0900 & 1500), First dose on Sat06/23/25 at 1045, Until Discontinued, Routine 1226 (Given - Provider: Gladys Lora RN)1514 (Given - Provider: Gladys Lora RN) ciprofloxacin (Cipro) tablet 500 mg 500 mg, Oral, Daily, First dose on Sat06/18/25 at 1320, Until Discontinued, Routine 0810 (Given - Provider: Gladys Lora RN) 0925 (Given - Provider: Bella Bloand RN) 0805 (Given - Provider: Bella Boland RN) ferrous sulfate EC tablet 324 mg 324 mg, Oral, Daily with breakfast, First dose on Sat06/18/25 at 0800, Until Discontinued, Routine 0810 (Given - Provider: Gladys Lora RN) 0839 (Given - Provider: Bella Boland RN) 0805 (Given - Provider: Bella Boland RN) gabapentin (Neurontin) capsule 300 mg 300 mg, Oral, 3 times daily, First dose on Ban 06/17/25 at 2355, Until Discontinued, Routine 0810 (Given - Provider: Gladys Lora RN)1514 (Given - Provider: Gladys Lora RN)2049 (Given - Provider: Robb Covarrubias, DEANNA) 0840 (Given - Provider: Bella Boland RN)1548 (Given - Provider: Bella Boland RN)2006 (Given - Provider: Marianna Saeed RN) 0804 (Given - Provider: Bella Boland RN)1600 (Canceled Entry - Provider: Automatic Discharge Provider - Comment: Automatically canceled at discontinue of medication order) heparin (porcine) injection 5,000 Units 5,000 Units, Subcutaneous, Every 8 hours scheduled, First dose on Ban 06/17/25 at 2350, Until Discontinued, Routine 0558 (Given - Provider: Dustin Deleon)1514 (Given - Provider: Gladys Lora RN)2100 (Given - Provider: Robb Covarrubias, DEANNA) 0647 (Given - Provider: Giovany Gibbs RN)1349 (Given - Provider: Bella Boland RN)2126 (Given - Provider: Marianna Saeed RN) 0618 (Given - Provider: Marianna Saeed RN)1338 (Given - Provider: Bella Boland, DEANNA) lactulose (Chronulac) 10 GM/15ML solution 20 g 20 g, Oral, Once, 1 dose, On Sat06/25/25 at 0830, Routine 0804 (Not Given - Provider: Bella Boland RN - Reason: Patient/Family/Represen tative Refused) metoprolol succinate XL (Toprol-XL) 24 hr tablet 25 mg 25 mg, Oral, Daily, First dose on Sat06/24/25 at 0900, Until Discontinued, Routine 0840 (Given - Provider: Bella Boland, DEANNA) 0804 (Given - Provider: Bella Boland RN) metoprolol tartrate (Lopressor) split tablet 12.5 mg (CANCELED) 12.5 mg, Oral, 2 times daily, First dose on Sat06/22/25 at 1400, Until Discontinued, Routine 0810 (Given - Provider: Gladys Lora RN) metoprolol tartrate (Lopressor) split tablet 12.5 mg (COMPLETED) 12.5 mg, Oral, 2 times daily, 1 dose, First dose (after last modification) on Sat06/23/25 at 2100, Routine 2048 (Given - Provider: Robb Covarrubias RN) nystatin (Mycostatin) [id number] UNIT/GM powder 1 Application Topical, 2 times daily, First dose on Sat06/18/25 at 1440, Until Discontinued, Routine 0810 (Given - Provider: Gladys Lora RN)2048 (Given - Provider: Robb Covarrubias RN) 924 (Given - Provider: Bella Boland, DEANNA)2014 (Given - Provider: Marianna Saeed, DEANNA) 0805 (Given - Provider: Bella Boland, DEANNA) polyethylene glycol (Miralax) packet 17 g 17 g, Oral, Daily, First dose on Sat06/17/25 at 2345, Until Discontinued, Routine 0809 (Given - Provider: Gladys Lora RN) 0839 (Given - Provider: Bella Boland, DEANNA) 0804 (Not Given - Provider: Lovileen H Bareng, RN - Reason: Patient/Family/Represen tative Refused) potassium chloride CR (Klor-Con) ER tablet 20 mEq (COMPLETED) 20 mEq, Oral, Once, 1 dose, On Sat06/25/25 at 0800, Routine 0805 (Given - Provid er: Bella Boland RN) potassium chloride CR (Klor-Con) ER tablet 40 mEq (COMPLETED) 40 mEq, Oral, Once, 1 dose, On Sat06/23/25 at 0115, Routine 0144 (Given - Provider: Dustin Deleon) potassium chloride CR (Klor-Con) ER tablet 40 mEq (COMPLETED) 40 mEq, Oral, Once, 1 dose, On Sat06/23/25 at 1230, Routine 1226 (Given - Provider: Gladys Lora RN) potassium chloride CR (Klor-Con) ER tablet 40 mEq (COMPLETED) 40 mEq, Oral, Once, 1 dose, On Sat06/24/25 at 0215, Routine 0200 (Given - Provider: Robb Covarrubias RN) potassium chloride CR (Klor-Con) ER tablet 40 mEq (COMPLETED) 40 mEq, Oral, Once, 1 dose, On Sat06/24/25 at 1130, Routine 1127 (Given - Provider: Bella Boland RN) rosuvastatin (Crestor) tablet 10 mg 10 mg, Oral, Nightly, First dose on Sat06/17/25 at 2355, Until Discontinued 2048 (Given - Provider: Robb Covarrubias RN) 2004 (Given - Provider: Marianna Saeed, DEANNA) senna (Senokot) tablet 17.2 mg 17.2 mg, Oral, Nightly, First dose on Sat06/25/25 at 2100, Until Discontinued, Routine sodium chloride 0.9 % flush 10 mL(Linked Group 1) 10 mL, Intravenous, Every 12 hours, First dose on Sat06/17/25 at 2345, Until Discontinued, Routine 1226 (Given - Provider: Gladys Lora RN)2345 (Canceled Entry - Provider: Robb Covarrubias RN) 0926 (Given - Provider: Bella Boland RN)2333 (Given - Provider: Marianna Saeed RN) 0805 (Given - Provider: Bella Boland RN) PRN Medication Order 06/23/2025 06/24/2025 06/25/2025 acetaminophen (Tylenol) tablet 500 mg 500 mg, Oral, Every 8 hours PRN, Starting on Ban 06/17/25 at 2344, Until Sat06/25/25 at 1920, Routine, Mild Plus Pain with CPOT DVPRS FLACC PAINAD NPASS NRS Benz-Quintero Faces score of 1 or greater OR NIPS score 2 or greater, fever 1552 (Given - Provider: Bella Boland RN) 1149 (Given - Provider: Bella Boland RN) bismuth subsalicylate (Pepto Bismol) 262 MG/15ML suspension 15 mL 15 mL, Oral, Every 6 hours PRN, Starting on Sat06/20/25 at 2150, Until Sat06/25/25 at 1920, Routine, indigestion diphenhydrAMINE-zinc acetate (Benadryl) cream 1 Application Topical, 3 times daily PRN, Starting on Ban 06/24/25 at 1401, Until Sat06/25/25 at 1920, Routine, itching 1431 (Given - Provider: Bella Boland RN) 0805 (Given - Provider: Bella Boland RN) HYDROcodone-acetaminophen ([place]) 5-325 MG per tablet 10 mg of hydrocodone 10 mg of hydrocodone, Oral, Every 6 hours PRN, Starting on Ban 06/17/25 at 2352, Until Sat06/25/25 at 1920, Moderate Severe Pain with CPOT score of 3 or greater OR FLACC PAINAD NPASS NRS Benz-Quintero Faces score of 4 or greater OR DVPRS NIPS score of 5 or greater 0810 (Given - Provider: Gladys Lora RN)1515 (Given - Provider: Gladys Lora RN)2049 (Given - Provider: Robb Covarrubias, DEANNA) 0200 (Given - Provider: Robb Covarrubias RN)0914 (Given - Provider: Bella Boland RN)1552 (Given - Provider: Bella Boland RN)2126 (Given - Provider: Marianna Saeed RN) 0428 (Given - Provider: Marianna Saeed RN)1147 (Given - Provider: Bella Boland RN) melatonin tablet 3 mg 3 mg, Oral, Nightly PRN, Starting on Sat06/17/25 at 2348, Until Sat06/25/25 at 1920, Routine, sleep ondansetron (Zofran) 4 MG/5ML solution 4 mg(Linked Group 2) 4 mg, Oral, Every 6 hours PRN, Starting on Sat06/17/25 at 2343, Until Sat06/25/25 at 1920, Routine, nausea, vomiting ondansetron (Zofran) injection 4 mg(Linked Group 2) 4 mg, Intravenous, Every 6 hours PRN, Starting on Sat06/17/25 at 2343, Until Sat06/25/25 at 1920, Routine, vomiting, nausea ondansetron ODT (Zofran-ODT) disintegrating tablet 4 mg(Linked Group 2) 4 mg, Oral, Every 6 hours PRN, Starting on Sat06/17/25 at 2343, Until Sat06/25/25 at 1920, Routine, nausea, vomiting sodium chloride 0.9 % flush 10 mL(Linked Group 1) 10 mL, Intravenous, As needed, Starting on Sat06/17/25 at 2342, Until Sat06/25/25 at 1920, Routine, line care white petrolatum (VASELINE) gel Topical, As needed, Starting on Sat06/18/25 at 1408, Until Sat06/25/25 at 1920, Routine, dry skin, dry skin or itching Linked Groups Order Group 1: Insert peripheral IV (CANCELED) Once, On Sat06/17/25 at 2343, For 1 occurrence And Saline lock IV (CANCELED) Once, On Sat06/17/25 at 2343, For 1 occurrence And sodium chloride 0.9 % flush 10 mLJump to med 10 mL, Intravenous, Every 12 hours, First dose on Sat06/17/25 at 2345, Until Discontinued, Routine And sodium chloride 0.9 % flush 10 mLJump to med 10 mL, Intravenous, As needed, Starting on Sat06/17/25 at 2342, Until Sat06/25/25 at 1920, Routine, line care Group 2: ondansetron ODT (Zofran-ODT) disintegrating tablet 4 mgJump to med 4 mg, Oral, Every 6 hours PRN, Starting on Ban 06/17/25 at 2343, Until Sat06/25/25 at 1920, Routine, nausea, vomiting Or ondansetron (Zofran) injection 4 mgJump to med 4 mg, Intravenous, Every 6 hours PRN, Starting on Ban 06/17/25 at 2343, Until Sat06/25/25 at 1920, Routine, vomiting, nausea Or ondansetron (Zofran) 4 MG/5ML solution 4 mgJump to med 4 mg, Oral, Every 6 hours PRN, Starting on Ban 06/17/25 at 2343, Until Sat06/25/25 at 1920, Routine, nausea, vomiting documented in this encounter Additional Health Concerns Assessment Noted Time PHQ-9 Depression Total Score: 8 02/06/20 25 8:29 AM EDT A fall risk assessment has been complete d for the patient 03/15/2025 10:46 AM EDT A Body Mass Index follow-up plan has been documented for the patient 06/25/2025 2:26 PM EST documented as of this encounter Care Teams Can Marker Relationship Specialty Start Date End Date Debbie Medina MD [address] [place] [address] PCP - General 09/28/24 Lee Collier MD [address] [place] [address] Internal Medicine 10/18/23 Kristopher Benitez RN None None Registered Nurse Hematology and Oncology 03/15/25 Bekah Flores, DEANNA None None Registered Nurse 05/25/25 documented as of this encounter
[2025-06-26] VITALS (10 sets, daily range): BP systolic 72–114; BP diastolic 43–79; PULSE 80–110; RESP 13–18; TEMP 36.6–36.7; O2SAT 92–98; BMI 27.4
--- NOTE | 2025-06-26 09:45 | CT_ITS ---
PROCEDURE INFORMATION: Exam: CTA Chest With Contrast CTA Abdomen and Pelvis With Contrast Exam date and time: 06/26/2025 10:07 AM Age: 75 years old Clinical indication: Other: Cancer/tachy/recent abd surgery; Other: Bone cancer/prev splenectomy/firm abd no uop TECHNIQUE: Imaging protocol: Computed tomographic angiography of the chest with contrast. Exam focused on the arteries. Computed tomographic angiography of the abdomen and pelvis with contrast. Exam focused on the arteries. 3D rendering (Not supervised by radiologist): MIP and/or 3D reconstructed images were created by the technologist. Radiation optimization: All CT scans at this facility use at least one of these dose optimization techniques: automated exposure control; mA and/or kV adjustment per patient size (includes targeted exams where dose is matched to clinical indication); or iterative reconstruction. Contrast material: ISOVUE; Contrast volume: 80 ml; Contrast route: INTRAVENOUS (IV); COMPARISON: CT ANGIO CHEST PE PROTOCOL 10/15/2023 3:29 PM FINDINGS: VASCULATURE: Pulmonary arteries: Pulmonary arterial contrast 283 which is adequate. No evidence of a pulmonary embolism. Aorta: Ectatic ascending aorta at 34 x 32 mm. Celiac and mesenteric arteries: See Spleen finding. Renal arteries: Single minimally atherosclerotic renal arteries. Mild stenosis involving the proximal celiac and superior mesenteric arteries. Inferior mesenteric artery is patent. Back numerous mediastinal lymph nodes. There is a superior mediastinal 12 x 12 mm enlarged lymph node. This is new since the previous CT angiogram chest. There is a true pretracheal lymph node a 12 x 17 mm. Also enlarged since the previous examination. Right iliac arteries: No occlusion or significant stenosis. Left iliac arteries: No occlusion or significant stenosis. CHEST: Lungs: Multiple areas of increased density noted within the lungs having a semi-solid appearance. In the upper lobe measures 6 mm image 7/37, 5 x 4 mm image 7/38. Peripherally in the upper lobe there is a 3 mm area image 7/55. Bibasilar atelectatic type changes are seen. Likely dependent atelectasis. 6 x 4 mm right upper lobe semi-solid density image 7/51. Pleural spaces: Unremarkable. No pneumothorax. No pleural effusion. Heart: Unremarkable. No cardiomegaly. No pericardial effusion. ABDOMEN AND PELVIS: Liver: No mass. Gallbladder and biliary ducts: Unremarkable. No calcified stones. No ductal dilation. Pancreas: Unremarkable. No mass. No ductal dilation. 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 Adrenal glands: 15 x 12 mm right adrenal lesion. The left adrenal gland is unremarkable. Kidneys and ureters: 35 x 41 mm right parapelvic renal cysts. No hydronephrosis. Both renal pelvises are indistinct with no intrarenal hydronephrosis. Stomach and bowel: There is diverticulosis without acute diverticulitis. No bowel obstruction. Appendix: No evidence of appendicitis. Intraperitoneal space: Ascites. Urinary bladder: Urinary bladder is very indistinct being compressed by the pelvic hemorrhage. The superior aspect of the bladder is not definable and I am Mr. More concerned this could represent a bladder injury. Reproductive: Unremarkable as visualized. Lymph nodes: See Renal arteries finding. Bones/joints: Spinal scoliosis. 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 Suspect sclerotic osseous metastatic disease involving the sternum, multiple areas in the pelvis as well as the proximal femora. No fracture. Soft tissues: Unremarkable. Other findings: There is a large amount of fluid in the belly with Hounsfield units ranging up to 48 suggestive of hemorrhage. No acute extravasation is identified. There is tissue thickening noted involving the belly button questionably postoperative this needs to be clinically correlated. IMPRESSION: 1. Hemorrhagic fluid in the pelvis. Indistinct urinary bladder. Can not rule out injury. 2. Bony osseous metastatic disease. 3. No hemodynamically significant stenosis. 4. Indistinct renal pelvises. Questionable parapelvic cysts. Consider delayed CT imaging see the excretion phase as well as the urinary bladder. 5. Ascites in the upper abdomen. 6. Multiple semi-solid areas of increased density bilaterally. 7. No pulmonary emboli. 8. No aortic aneurysm or dissection. 9. THIS REPORT CONTAINS FINDINGS THAT MAY BE CRITICAL TO PATIENT CARE. The findings were verbally communicated by me to JANNA MORALES at 10:56 AM EST on 06/26/2025. The findings were acknowledged and understood. COMMENTS: Consistent with the [employer]'s Incidental Findings Committee white paper (J Am [employer]on [employer]iol 2018): Any incidental renal lesion less than 1 cm or classified as too small to characterize, or any incidental cystic renal lesion characterized as simple-appearing, is likely benign. No follow-up imaging is recommended for these lesions per consensus recommendations based on imaging criteria.
--- NOTE | 2025-06-26 09:50 | HMH.EDGENADL ---
Discharge Plan Disposition Chief Complaint: Abdominal Pain Prescriptions Prescriptions: No Action gabapentin 800 mg Tablet 800 mg PO QID hydrocodone-acetaminophen 7.5-325 mg tablet 1 tab PO TIDP PRN (Reason: Moderate Pain (Scale Score 5-6)) Patient Comments: TAKE 1 TABLET BY MOUTH THREE TIMES DAILY NEEDED Referrals Follow up/Referrals: Provider,Referral, [Primary Care Provider, Medical] - See instructions Instructions Patient Instructions: DI for Acute Abdominal Pain Print Language Print Language: Trinidadian Discharge ED Provider: Hong Padilla General Adult HPI General Chief complaint: Abdominal Pain Stated complaint: Unable to void Time Seen by Provider: 06/26/25 09:42 History of Present Illness HPI narrative: Patient is 75-year-old male with past medical history of reported bone cancer who was reportedly recently admitted to and discharged he states that he got his splint taken out and has been unable to void for the last 24 hours. He takes a blood thinner but does not know what kind. He is largely unaware of his medical history otherwise. He has abdominal distention and pain. Related Data Home Medications ?Medication ?Instructions ?Recorded ?Confirmed gabapentin 800 mg tablet 800 mg PO QID pain 09/24/22 09/24/22 hydrocodone 7.5 mg-acetaminophen 1 tab PO TIDP PRN Moderate Pain 09/24/22 09/24/22 325 mg tablet (Scale Score 5-6) Allergies Allergy/AdvReac Type Severity Reaction Status Date / Time No Known Allergies Allergy Verified 09/24/22 07:37 [facility] Disclaimer: The information contained in this section may have been updated after the patient was seen, as this information can be updated by other users. Medical History History of back pain Family History Family history of myocardial infarction Mother Social History Smoking Status: Never smoker alcohol intake: former current occupational status: unemployed Travel in the last 8 weeks?: Inside the [place] Have you lived/traveled outside US in past 30 days?: No Contact w/someone who lives/traveled outside US past 30 days?: No Exposure to someone with infectious disease in past 14 days?: No Do you have a fever (greater than 100.4 F or 38 C)?: No Have you tested positive for COVID-19?: No Exposed to someone with COVID-19 in past 14 days?: No Do you have a sore throat?: No Do you have a cough?: No Do you have any weakness?: No Do you have any diarrhea?: No Are you experiencing any unusual bleeding?: No Do you have any muscle aches/pain?: No Do you have any abdominal pain?: Yes Are you experiencing loss of taste or smell?: No Other Medical History Have you received the Flu Vaccine for this season: No Have you received the Pneumonia Vaccine: No ROS Obtained: Yes Systems reviewed as appropriate & no additional complaints except as documented Physical Exam General General appearance: alert Comment: Appearing uncomfortable in bed Head Head exam: atraumatic and normocephalic Eye Eye exam: Present PERRL and EOMI ENT ENT exam: Present mucous membranes moist Neck Neck exam: Present normal inspection Chest Chest inspection: Present normal inspection and symmetric chest wall rise Respiratory Respiratory exam: Present normal lung sounds bilaterally; Absent respiratory distress Cardiovascular Cardiovascular exam: Present regular rate and normal rhythm Abdominal Exam Abdominal exam: Present distention, tenderness (Periumbilical bruising, flank bruising) and rigidity (Lower abdomen) Extremities Exam Extremities exam: Present other (Red-colored bilateral lower extremities from the mid abdomen down. 2+ pitting edema BLE, appropriate capillary refill) Neurological Exam Neurological exam: Present alert Psychiatric Psychiatric exam: Present normal affect Skin Skin exam: Present warm and dry Medical Decision Making Medical Records Screening: Per USPSTF and CDC recommendations, given the prevalence of disease in our region, it is our hospital?s policy to screen for HIV and viral Hepatitis for all patients aged 18 and over and those with ongoing risk factors. Valente Inquiry Pt receiving controlled substance: No Vital Signs: 06/26/25 09:45 06/26/25 09:45 06/26/25 09:47 Temperature 97.8 F 97.8 F Temperature Source Oral Pulse Rate 108 H 108 H Pulse Rate [Right] 108 H Respiratory Rate 14 14 13 Blood Pressure 96/70 L 96/70 L Blood Pressure [Right Arm] 96/70 L Blood Pressure Mean [Right Arm] 78 02 Sat by Pulse Oximetry 97 97 98 Oxygen Delivery Method Room Air Lab Data Lab Results 06/26/25 10:21: WBC 113.0 H*, RBC 5.50, Hgb 13.4 L, Hct 42.9, MCV 78.0 L, MCH 24.4 L, MCHC 31.2 L, RDW 30.7 H*, Plt Count 86 L, MPV TNP, Neut % (Auto) 69.1, Lymph % (Auto) 1.2 L, [place] % (Auto) 14.2 H, Eos % (Auto) 5.0, Baso % (Auto) 2.1 H, Neut # (Auto) 78.1 H, Lymph # (Auto) 1.4, [place] # (Auto) 16.1 H, Eos # (Auto) 5.7 H, Baso # (Auto) 2.4 H, Sodium 126 L, Potassium 4.5, Chloride 81 L, Carbon Dioxide 33 H, Anion Gap 16.5 H, BUN 99 H, Creatinine 3.50 H, Estimated Creat Clear 20, Estimated GFR 17 L*, Est GFR ( Amer) 21 L, Glucose 126 H, Calcium 8.4, Total Bilirubin 2.4 H, AST 75 H, ALT 21, Alkaline Phosphatase 456 H, Total Protein 6.1 L, Albumin 3.3 L, Globulin 2.8, Albumin/Globulin Ratio 1.2, Lipase 288 06/26/25 10:21 06/26/25 10:21 Orders (Tests/Meds): ED MEDICATIONS Generic Name Dose Route Start Last Admin Trade Name Freq PRN Reason Stop Dose Admin Piperacillin Sod/Tazobactam 50 mls @ 100 mls/hr 06/26/25 10:15 Sod 3.375 gm/ Sodium Chloride IV 07/06/25 10:14 Q8H YANIQUE Vancomycin/PEG/NADA/Lysine/Water 1.5 gm in 300 mls @ 150 mls/hr 06/26/25 10:15 Vancomycin 1.5gm/300ml (Peg) Premix IV 06/26/25 12:14 ONCE ONE Discontinued Medications Generic Name Dose Route Start Last Admin Trade Name Freq PRN Reason Stop Dose Admin Fentanyl Citrate 50 mcg 06/26/25 10:07 06/26/25 10:10 Fentanyl 100mcg/2ml Vial IV 06/26/25 10:08 50 mcg ONCE ONE Administration Hydromorphone HCl 1 mg 06/26/25 10:46 Hydromorphone 2mg/Ml Syringe IV 06/26/25 10:47 ONCE ONE Iopamidol 80 ml 06/26/25 10:18 06/26/25 10:19 Iopamidol-370 (76%);100ml Bottle IV 06/26/25 10:19 80 ml ONCE ONE Administration Miscellaneous 1 each 06/26/25 10:15 Vancomycin Consult Request NOTAPPLIC 07/26/25 10:14 CONSULT PHARMACY YANIQUE Sodium Chloride 10 ml 06/26/25 10:18 06/26/25 10:19 Sodium Chloride 0.9% 10ml Syr (Rad Only) IV 06/26/25 10:19 10 ml ONCE ONE Administration Sodium Chloride 50 ml 06/26/25 10:18 06/26/25 10:19 0.9 % Sodium Chloride 50 Ml Vial IV 06/26/25 10:19 50 ml ONCE ONE Administration ORDERS Category Date Time Status CT angio abd/pel - GI Bleed Stat Cat Scan 06/26/25 09:[address] angio chest - dissection Stat Cat Scan 06/26/25 09:45 Taken POCUS Point of Care (ER Only) Stat Exams 06/26/25 10:43 Ordered BNP [NT Pro Brain Natriuretic Pep.] Stat Lab 06/26/25 10:21 Received CBC w/Auto Diff [Complete Blood Count Auto Diff] Stat Lab 06/26/25 10:21 Received CMP [Comprehensive Metabolic Panel] Stat Lab 06/26/25 10:21 Results D-Dimer Stat Lab 06/26/25 10:21 Received Fibrinogen Stat Lab 06/26/25 10:21 Received Lipase Stat Lab 06/26/25 10:21 Results PT INR [Prothrombin Time INR] Stat Lab 06/26/25 10:21 Received PTT [Activated Partial Thrombo Time] Stat Lab 06/26/25 10:21 Received Trop I [Troponin I] Stat Lab 06/26/25 10:21 Received Troponin I Q3H Lab 06/26/25 13:15 Ordered Troponin I Q3H Lab 06/26/25 16:15 Ordered Blood Culture Stat Micro 06/26/25 10:15 Received VBG [Venous Blood Gas] Stat RT 06/26/25 09:51 Received Medical Decision Narrative: In summary patient is a 75-year-old male with past medical history that is limited above who presents emergency department for evaluation of abdominal pain and inability to void. 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 CKD's creatinine is between 2.5 and 3, he had diuresis and paracentesis without evidence of SBP. Patient has soft blood pressures on arrival. Limited ikapc-qq-[id number] ultrasound I am concerned for significant clot burden in the bladder. Emergent CT imaging will be conducted given unknown abdominal status and bruising. 50 mcg of fentanyl will be administered. Aqaib-ir-oggy ultrasound shows large mass in the lower abdomen concern for clot versus solid mass. I had interactive discussion with radiology, they cannot identify the bladder however he has internal bleeding with significant clot burden throughout his abdomen and pelvis. Broad-spectrum antibiotics with vancomycin and Zosyn will be administered. Upon repeat evaluation patient has persistent pain hemodynamics are acceptable cewba-[id number] ultrasound at bedside shows severely decreased ejection fraction will not do volume resuscitation at this time. No anticoagulation per his report to reverse. Dilaudid will be administered. The case was discussed with Dr. Howell [facility] regarding management who graciously accepted patient for transfer for continued evaluation at this time. Procedure: Procedure performed was abdominal ultrasound limited. Procedure performed by Hong Padilla. Using the curvilinear probe suprapubic views were obtained which shows a large mass without significant hypoechoic fluid to identify the bladder. Limited ultrasound of the pericardial parasternal long axis shows moderate to severely decreased ejection fraction. No large pericardial effusion. Images were saved to a permanent archive and were technically adequate and did not necessitate further imaging. Critical Care Critical Care Time Critical Care Time: Yes Attestation: On 06/26/25, the high probability of a clinically significant, sudden or life threatening deterioration of the following system(s) required my full and direct attention, intervention and personal management. The time I documented below is in addition to time spent performing reported procedures but includes the following listed in this critical care notation. Total Time Total Critical Care Time: 45
[2025-06-26 10:06] LABS: Hematocrit 42.9 % (42.0-52.0); Hemoglobin 13.4 g/dL (14.1-18.0); Immature Granulocytes % 8.4 %; Mean Corpuscular HGB Conc 31.2 g/dL (31.8-35.4); Mean Corpuscular Hemoglobin 24.4 pg (27.0-31.2); Mean Corpuscular Volume 78.0 fl (80-94); Nucleated Red Blood Cells % 14.9 %; Platelet Count 86 K/mm3 (142-424); Red Blood Count 5.50 M/mm3 (4.60-6.20); Red Cell Distribution Width-SD 81.3 fL
[2025-06-26] MEDS: FENTANYL 100MCG/2ML VIAL 50 MCG IV (10:10)
[2025-06-26] MEDS: SODIUM CHLORIDE 0.9% 10ML SYR (RAD ONLY) 10 ML IV (10:19)
[2025-06-26] MEDS: IOPAMIDOL-370 (76%);100ML BOTTLE 80 ML IV (10:19)
[2025-06-26] MEDS: 0.9 % SODIUM CHLORIDE 50 ML VIAL IV (10:19)
--- OUTSIDE RECORDS SUMMARY | 2025-06-26 10:24 | XMS_ITS | Encounter Summary ---
Author Organization Healthcare Address [address] [place] [address] Care Team Providers Care Cissp Name Role Phone Lee Collier MD Unavailable [phone] Debbie Medina MD Primary Care Provider + [phone] Kristopher Benitez RN Unavailable Unavailable Bekah Flores RN Unavailable Unavailable Encounter Details Date Type Department Care Team (Late st Contact Info) Description 05/25/2025 Referral Triage POPULATION [facility] [address], [address] [place] [address] Bekah Flores RN None None Social History Tobacco Use Types Packs/Day Years [...] often do you attend chur ch or lutheran services? More than 4 times per year 10/16/2022 Do you belong to any clubs o r organizations such as moravian groups, unions, fraternal or athletic groups, or [...] money to buy more. Never true 05/21/20 Within the past 12 months, t he [...] any time in the past 12 m [facility], were you homeless or living in a senior living (including now)? No 05/21/2025 [facility] Utilities Answer Date Recorded [...] drink first t july in the morning (EYE-COMMUNITY FACILITATOR) to steady your nerves or to get [...] on file documented as of this encounter Miscellaneous Notes * Progress Notes - Bekah Flores RN - 05/25/2025 10:23 AM EST HRCM Inpatient Review Reason for Note: Inpatient Admission Review HRCM nurse will coordinate with REDDY/RYAN BURNS during admission and continue to follow the patient after discharge. HRCM Nurse: Bekah Flores RN 05/25/2025 10:23 AM documented in this encounter Plan of Treatment Upcoming Encounters Date Type Department Care Team (Late st Contact Info) Description 07/05/2025 3:00 PM EST Clinical Support [facility] [address] [place] [phone] 07/05/2025 3:30 PM EST Office Visit [facility] [address] [place] [phone] Vaishnavi Almaraz MD [address] [facility] [address] [place] [phone] 09/13/2025 10:30 AM EDT Clinical Support [facility] [address] [place] [phone] 09/13/2025 11:00 AM EDT Office Visit [facility] [address] [place] [phone] Vaishnavi Almaraz MD 800 [facility] [address] [phone] documented as of this encounter Visit Diagnoses Not on filedocumented in this encounter Additional Health Concerns Assessment Noted Time PHQ-9 Depression Total Score: 8 02/06/20 25 8:29 AM EDT A fall risk assessment has been complete d for the patient 03/15/2025 10:46 AM EDT A Body Mass Index follow-up plan has been documented for the patient 05/25/2025 4:37 PM EST documented as of this encounter Care Teams Cissp Relationship Specialty Start Date End Date Debbie Medina MD [address] [facility] [address] [place] [address] PCP - General 09/28/24 Lee Collier MD [address] [place] [address] Internal Medicine 10/18/23 Kristopher Benitez, RN None None Registered Nurse Hematology and Oncology 03/15/25 Bekah Flores, DEANNA None None Registered Nurse 05/25/25 documented as of this encounter
--- OUTSIDE RECORDS SUMMARY | 2025-06-26 10:24 | XMS_ITS | Encounter Summary ---
Author Organization Healthcare Address [address] [place] [address] Care Team Providers Care Resident Physician In Radiology Name Role Phone Lee Collier MD Unavailable [phone] Debbie Medina MD Primary Care Provider + [phone] Kristopher Benitez RN Unavailable Unavailable Bekah Flores RN Unavailable Unavailable Encounter Details Date Type Department Care Team (Latest Contact Info) Description 05/25/2025 Travel Social History Tobacco Use Types Packs/Day Years [...] Never 10/16/2022 How often do you attend [facility] or alevism services? More than 4 times per year 10/16/2022 Do you belong to any clubs o r organizations such as yazdanism groups, unions, fraternal or athletic groups, or [...] any time in the past 12 m [facility], were you homeless or living in a senior care (including now)? No 05/21/2025 [facility] Utilities Answer Date Recorded In the past 12 months has e [employer], gas, oil, or water company threatened to [...] drink first t july in the morning (EYE-RN MENTAL HEALTH) to steady your nerves or to get [...] on file documented as of this encounter Plan of Treatment Upcoming Encounters Date Type Department Care Team ([facility] st Contact Info) Description 07/05/2025 3:00 PM EST Clinical Support [facility] [address] [place] [address] 07/05/2025 3:30 PM EST Office Visit [facility] [address] [place] [address] Vaishnavi Almaraz MD 800 [facility] [address] [place] [phone] 09/13/2025 10:30 AM EDT Clinical Support [facility] [address] [place] [phone] 09/13/2025 11:00 AM EDT Office Visit [facility] Therapy [facility] [address] [place] [phone] Vaishnavi Almaraz MD 800 [facility] [address] [place] [phone] documented as of this encounter Visit Diagnoses [...] documented as of this encounter Care Teams Resident Physician In Radiology Relationship Specialty Start Date End Date Debbie Medina MD [address] [facility] [address] [place] [address] PCP - General 09/28/24 Lee Collier MD [address] [place] [phone] Internal Medicine 10/18/23 Kristopher Benitez RN None None Registered Nurse Hematology and Oncology 03/15/25 Bekah Flores, DEANNA None None Registered Nurse 05/25/25 documented as of this encounter
--- OUTSIDE RECORDS SUMMARY | 2025-06-26 10:24 | XMS_ITS | Encounter Summary ---
Author Organization Healthcare Address [address] [place] [address] Care Team Providers Care Tool Marker Name Role Phone Lee Collier MD Unavailable [phone] Debbie Medina MD Primary Care Provider + [phone] Kristopher Benitez RN Unavailable Unavailable Bekah Flores RN Unavailable Unavailable Reason for Visit * Reason Comments TCM Encounter Details Date Type Department Care Team (Late st Contact Info) Description 05/31/2025 Patient Outreach POP[facility]ATION [facility] [address] [place] [address] Bekah Flores, DEANNA None None TCM Social History Tobacco Use Types Packs/Day Years [...] often do you attend chur ch or mormon services? More than 4 times per year 10/16/2022 Do you belong to any clubs o r organizations such as latter day groups, unions, fraternal or athletic groups, or [...] any time in the past 12 m [facility], were you homeless or living in a detention (including now)? No 05/21/[address] [facility] Utilities Answer Date Recorded In [...] drink first t july in the morning (EYE-DANCE PROFESSOR) to steady your nerves or to get [...] on file documented as of this encounter Mental Status * Pop Health Reason For Visit Assessment Group Question Answer Entry Date Author Outreach Reason Program Enrollment/Intake 05/31/2025 1:33 PM Bekah Kim RN Pop Health Reason For Encounter [facility] 05/31/2025 1:33 PM Bekah Kim RN documented in this encounter Miscellaneous Notes * Progress Notes - Bekah Flores RN - 05/31/2025 1:32 PM EST Admit Date: 05/20 Discharge Date: 05/28 Hospital Service Medicine Discharge Diagnosis: Recurrent SBP, Recurrent ascites requiring monthly paracentesis 05/31/2025 TCM call # 1 Patient Reached: No Outcome: Left vmail Action: Check list updated. Medication changes: n/a [facility] appointment: n/a Items to address at [facility]: nability to perform ADLs: Chart review multiple missed appointments over last 6 months, unfortunately with hospitalizations resulting from medication non-compliance PT/OT recommending home with 24-hour assistance Daughter willing to take patient home with her, however this seems like a temporary situation per patient documented in this encounter Plan of Treatment Upcoming Encounters Date Type Department Care Team (Late st Contact Info) Description 07/05/2025 3:00 PM EST Clinical Support [facility] [address] [place] [phone] 07/05/2025 3:30 PM EST Office Visit [facility] [address] [place] [phone] Vaishnavi Almaraz MD 800 [facility] [address] [phone] 09/13/2025 10:30 AM EDT Clinical Support [facility] [address] [place] [phone] 09/13/2025 11:00 AM EDT Office Visit [facility] [address] [place] [phone] Vaishnavi Almaraz MD 800 [facility] [address] [phone] documented as of this encounter Visit Diagnoses [...] documented as of this encounter Care Teams Tool Marker Relationship Specialty Start Date End Date Debbie Medina MD [address] [facility] [address] [place] [address] PCP - General 09/28/24 Lee Collier MD [address] [place] [address] Internal Medicine 10/18/23 Kristopher Benitez RN None None Registered Nurse Hematology and Oncology 03/15/25 Bekah Flores RN None None Registered Nurse 05/25/25 documented as of this encounter
--- OUTSIDE RECORDS SUMMARY | 2025-06-26 10:26 | XMS_ITS | Encounter Summary ---
Author Organization Healthcare Address [address] [place] [address] Care Team Providers Care Special Education Aide Name Role Phone Lee Collier MD Unavailable [phone] Debbie Medina MD Primary Care Provider + [phone] Kristopher Benitez RN Unavailable Unavailable Encounter Details Date Type Department Care Team (Latest Contact Info) Description 05/18/2025 Travel Social History Tobacco Use Types Packs/Day [...] often do you attend [facility] or taoist services? More than 4 times per year 10/16/2022 Do you belong to any clubs o r organizations such as yazidi groups, unions, fraternal or athletic groups, or [...] any time in the past 12 m [facility], were you homeless or living in a long-term (including now)? No 01/19/2025 CAGE ASSESSMENT Answer [...] drink first t july in the morning (EYE-DELIVERY CONSULTANT) to steady your nerves or to get rid of a hangover? 0 01/19/2025 CAGE Questionnaire Score 0 025 Utilities Answer Date Recorded In the past 12 months has e [employer], gas, oil, or water Location [employer] threatened to shut off services in your home? No 01/19/2025 PHQ-2A Answer Date Recorded Patient Health Questionnaire-2 Score 0 03/22/2023 Sex and Gender Information Value Date Recorded Sex Assigned at Male 10/10/2024 1:42 PM EDT Legal Sex Male 6:11 PM EDT Gender Identity Not on file Sexual Orientation Not on file documented as of this encounter Functional Status * Communicable Disease Screening Question Answer Date of Assessment Author Have you been in contact wit h someone who was sick? No / Unsure 05/18/2025 11:30 AM Apurva Avilez Do you have any of the following new or worsening symptoms? None of these 05/18/2025 11:30 AM Apurva Avilez * Travel Screening Question Answer Date of Assessment Author Have you traveled internatio raul or domestically in the last month? No 05/18/2025 11:30 AM Apurva Andrade documented as of this encounter Mental Status * Communicable Disease Screening Question Answer Entry Date Author Have you been in contact wit h someone who was sick? No / Unsure 05/18/2025 11:30 AM Apurva Avilez Do you have any of the following new or worsening symptoms? None of these 05/18/2025 11:30 AM Apurva Avilez * Travel Screening Question Answer Entry Date Author Have you traveled internatio raul or domestically in the last month? No 05/18/2025 11:30 AM Apurva Andrade documented in this encounter Plan of Treatment Upcoming Encounters Date Type Department Care Team (Late st Contact Info) Description 07/05/2025 3:00 PM EST Clinical Support [facility] [address] [place] [phone] 07/05/2025 3:30 PM EST Office Visit [facility] [address] [place] [phone] Vaishnavi Almaraz MD 800 [facility] [address] [place] [phone] 09/13/2025 10:30 AM EDT Clinical Support [facility] [address] [place] [phone] 09/13/2025 11:00 AM EDT Office Visit [facility] [address] [place] [phone] Vaishnavi Almaraz MD 800 [facility] [address] [place] [phone] documented as of this encounter Visit Diagnoses [...] documented as of this encounter Care Teams Special Education Aide Relationship Specialty Start Date End Date Debbie Medina MD [address] [facility] [address] [place] [address] PCP - General 09/28/24 Lee Collier MD [address] [place] [address] Internal Medicine 10/18/23 Kristopher Benitez, RN None None Registered Nurse Hematology and Oncology 03/15/25 documented as of this encounter
--- OUTSIDE RECORDS SUMMARY | 2025-06-26 10:26 | XMS_ITS | Encounter Summary ---
Author Organization Healthcare Address [address] [place] [address] Care Team Providers Care Trawl Net Maker Name Role Phone Lee Collier MD Unavailable [phone] Debbie Medina MD Primary Care Provider + [phone] Kristopher Benitez RN Unavailable Unavailable Bekah Flores RN Unavailable Unavailable Reason for Referral * Consultation (Routine) - Authorized Specialty Diagnoses / Procedures Referred By Contac t Referred To Contact Diagnoses Encounter for support and coordination of transition of care Debbie Medina MD [address] [facility] [address] [place] [address] Phone: tel: fax: [address], [facility] [address] [place] [address] Phone: tel: Referral ID Status Reason Start Date Expiration Date Visits Requested Visits Authorized [id number] Authorized Other Co-Managemen t of Problem 11/24/2026 1 1 Reason for Visit * Reason Comments Chw/Eldercare Encounter Details Date Type Department Care Team (Late st Contact Info) Description 05/24/2025 Patient Outreach [facility] [address] [place] [address] [address] [place] [address] Phill Singh Chw/Eldercare Social History Tobacco Use Types Packs/Day Years [...] How often do you attend chur or anglican services? More than 4 times per year 10/16/2022 Do you belong to any clubs o r organizations such as advent groups, unions, fraternal or athletic groups, or [...] any time in the past 12 m [facility], were you homeless or living in a halfway (including now)? 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 Pt was unable to be roused. Pt has dental procedure scheduled for05/25. Anticipated discharge to [facility] per chart review. documented in this encounter Plan of Treatment Upcoming Encounters Date Type Department Care Team ([facility] st Contact Info) Description 07/05/2025 3:00 PM EST Clinical Support [facility] Cellular Therapy Program [address] [place] [phone] 07/05/2025 3:30 PM EST Office Visit [facility] Cellular Therapy Program [address] [phone] Vaishnavi Almaraz MD 800 [facility] [address] [place] [phone] 09/13/2025 10:30 AM EDT Clinical Support [facility]/B[facility] Cellular Therapy Program [address] [phone] 09/13/2025 11:00 AM EDT Office Visit [facility]ology/BMT and Cellular Therapy Program [address] [place] [address] Vaishnavi Almaraz MD [address] [facility] [address] [place] [address] Scheduled Referrals Name Type Priority Associated Diagnoses Orde r Schedule Ambulatory Referral to High Risk Care Management (HRCM) Outpatient Referral Routine Encounter for support and coordination of transition of care 1 Occurrences starting 05/25/2025 until 11/26/2026 documented as of this encounter Visit Diagnoses Diagnosis Encounter for support and coordination of transition of care- Primary documented in this encounter Additional Health Concerns Assessment Noted Time PHQ-9 Depression Total Score: 8 02/06/20 25 8:29 AM EDT A fall risk assessment has been complete d for the patient 03/15/2025 10:46 AM EDT A Body Mass Index follow-up plan has been documented for the patient 05/28/2025 10:51 AM EST documented as of this encounter Care Teams Trawl Net Maker Relationship Specialty Start Date End Date Debbie Medina MD [address] [facility] [address] [place] [phone] PCP - General 09/28/24 Lee Collier MD [address] [place] [phone] Internal Medicine 10/18/23 Kristopher Benitez, DEANNA None None Registered Nurse Hematology and Oncology 03/15/25 Bekah Flores, DEANNA None None Registered Nurse 05/25/25 documented as of this encounter
--- OUTSIDE RECORDS SUMMARY | 2025-06-26 10:26 | XMS_ITS | Clinical Summary ---
Author Organization [facility] ([place], [place], [place], [place], [place]) Address [address] [place] [address] Care Team Providers Care Briquette Machine Operator Name Role Phone Unavailable Primary Care Provider Unavailabl e Social History Tobacco Use Types Packs/Day Years Used Date Smoking Tobacco: Never Assessed Sex and Gender Information Value Date Recorded Sex Assigned at Male 12/26/2021 7:43 PM CDT Legal Sex Male 7:43 PM CDT Gender Identity Male 12/26/2021 7:43 PM CDT Sexual Orientation Not on file Plan of Treatment Not on file
--- OUTSIDE RECORDS SUMMARY | 2025-06-26 10:26 | XMS_ITS | Encounter Summary ---
Author Organization Healthcare Address [address] [place] [address] Care Team Providers Care Military Technician Name Role Phone Lee Collier MD Unavailable [phone] Debbie Medina MD Primary Care Provider + [phone] Kristopher Benitez RN Unavailable Unavailable Bekah Flores RN Unavailable Unavailable Reason for Visit * Reason Comments HRCM Encounter Details Date Type Department Care Team (Late st Contact Info) Description 06/04/2025 Patient Outreach [facility] [address], [address] [place] [address] Bekah Flores, DEANNA None None HRCM Social History Tobacco Use Types Packs/Day Years [...] often do you attend chur ch or latter-day services? More than 4 times per year 10/16/2022 Do you belong to any clubs o r organizations such as restorationist groups, unions, fraternal or athletic groups, or [...] any time in the past 12 m [facility], were you homeless or living in a group home (including now)? 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 No 06/04/2025 2:11 PM Bekah Kim RN Trouble getting and/or payin g for medications? No 06/04/2025 2:11 PM Bekah Kim RN Understands why medications are taken? Yes 06/04/2025 2:11 PM Bekah Kim RN Understands how medications are taken? Yes 06/04/2025 2:11 PM Bekah iKm RN * Patients can perform the following activities without help: Question Answer Date of Assessment Author Dressing Yes 06/04/2025 2:11 PM Bekah Morin RN Bathing Yes 06/04/2025 2:11 PM Bekah Morin RN Doing laundry No 06/04/2025 2:11 PM Bekah Varela RN Climbing a flight of stairs No 06/04/2025 2: 11 PM Bekah Kim RN Walking briskly No 06/04/2025 2:11 PM Bekah Arroyo RN Moderate exercise No 06/04/2025 2:11 PM Bekah Kim RN * Patient Reports Health as Question Answer Date of Assessment Author Patient reports health as Poor 06/04/2025 2:11 PM Bekah Kim RN * Medications Question Answer Date of Assessment Author Medication reconciled? No 06/04/2025 2:11 PM Bekah Kim RN Trouble getting and/or payin g for medications? No 06/04/2025 2:11 PM Bekah Kim RN Understands why medications are taken? Yes 06/04/2025 2:11 PM Bekah Kim RN Understands how medications are taken? Yes 06/04/2025 2:11 PM Bekah Kim RN * Patients can perform the following activities without help: Question Answer Date of Assessment Author Dressing Yes 06/04/2025 2:11 PM Bekah Morin RN Bathing Yes 06/04/2025 2:11 PM Bekah Morin RN Doing laundry No 06/04/2025 2:11 PM Bekah Varela RN Climbing a flight of stairs No 06/04/2025 2: 11 PM Bekah Kim RN Walking briskly No 06/04/2025 2:11 PM Bekah Arroyo RN Moderate exercise No 06/04/2025 2:11 PM Bekah Kim RN documented as of this encounter Mental Status * Patient Reports Health as Question Answer Entry Date Author Patient reports health as Poor 06/04/2025 2:11 PM Bekah Kim RN * Medications Question Answer Entry Date Author Medication reconciled? No 06/04/2025 2:11 PM Bekah Kim RN Trouble getting and/or payin g for medications? No 06/04/2025 2:11 PM Bekah Kim RN Understands why medications are taken? Yes 06/04/2025 2:11 PM Bekah Kim RN Understands how medications are taken? Yes 06/04/2025 2:11 PM Bekah Kim RN * Pop Health Reason For Visit Assessment Group Question Answer Entry Date Author Outreach Reason Program Enrollment/Intake 06/04/2025 2:00 PM Bekah Kim RN Pop Health Reason For Encounter HRCM 06/04/2025 2:00 PM Bekah Kim RN documented in this encounter Miscellaneous Notes * Progress Notes - Bekah Flores RN - 06/04/2025 1:58 PM EST [facility] Enrollment 06/04/2025 [facility] Program Service: [x] Hospital medicine [] Family Medicine or [] Other PCP: [] Internal or [x] External 3 ER visits in 6 months Outreach to Patient [x] Outreach 1: 06/04 [] Outreach 2: [] Outreach 3: [x] Enrollment Date: 06/04 Risk & Needs Assessment/Summaries Health Updates/Concerns: Patient is living alone and previous DC report stated patient should have 24 hour assistance. Patient reports daughter lives out of town. He has a friend who lives in his building that he attends restorationist with that will take him to [employer] and [facility]. He uses [facility] for transport for PCP. Patient is letting RN set up ride for BMT visit due to pain and difficulty walking, I offered vs Wheels due to mobility. Caregiver/Support System: Daughter lives out of town Medications: Access: n/a Adherence: Verbalizes he understands why he takes certain medications. Tolerance/ Side Effects: n/a Summary: SDOH SDOH Update: Care Gaps: [Health Maintenance] Care Team CHW: n/a Patient-Centered Care Plan Patient???s Stated Goals (short- and long-term): Prevent readmissions Nurse Navigator Goals (prevent readmission, medication optimization, connect to community resources): Prevent readmissions, keep patient safe Planned Interventions [x] Frequency of outreach [x] Home visits vs. phone follow-up [] Collaboration Needed: [] Pharmacy, [] FAP, [] LINK [] CHW [x] Education provided [x] Condition-specific [x] Red flag symptoms [x] When to call vs. when to go to ED [x] Care plan initiated. [] Graduation Plan: n/a Next Steps & Follow-Up Chronic Conditions & Preventive Needs [] Specialty Follow-Ups Needed: BMT visit, RN is obtaining transport for patient. Rn also made PCP visit with [facility] for patient and informed them that he needs transport. Planned outreach Summary: Upcoming appointments Future Appointments Date Time Provider Department Center 06/09/2025 9:00 AM P [facility] [place] 06/09/2025 9:30 AM Vaishnavi Almaraz MD [facility] 09/13/2025 10:30 AM [facility] [place] 09/13/2025 11:00 AM Vaishnavi Almaraz MD [facility] [x] Patient enrolled in [facility]. Bekah Flores RN Population Health Nurse documented in this encounter Plan of Treatment Upcoming Encounters Date Type Department Care Team ([facility] Contact Info) Description 07/05/2025 3:00 PM EST Clinical Support [facility]ology[facility]BMT [facility] Cellular Therapy Program [address] [place] [address] 07/05/2025 3:30 PM EST Office Visit [facility]MT [facility] Cellular Therapy Program [address] [place] [address] Vaishnavi Almaraz MD 800 [facility] [address] [place] [phone] 09/13/2025 10:30 AM EDT Clinical Support [facility] Cellular Therapy Program [address] [place] [phone] 09/13/2025 11:00 AM EDT Office Visit [facility]ology/BMT and Cellular Therapy Program [address] [place] [phone] Vaishnavi Almaraz MD 800 [facility] [address] [phone] documented as of this encounter Visit Diagnoses [...] documented as of this encounter Care Teams Military Technician Relationship Specialty Start Date End Date Debbie Medina MD [address] [facility] [address] [place] [address] PCP - General 09/28/24 Lee Clolier MD [address] [place] [phone] Internal Medicine 10/18/23 Kristopher Benitez, DEANNA None None Registered Nurse Hematology and Oncology 03/15/25 Bekah Flores, DEANNA None None Registered Nurse 05/25/25 documented as of this encounter
--- OUTSIDE RECORDS SUMMARY | 2025-06-26 10:26 | XMS_ITS | Encounter Summary ---
Author Organization Healthcare Address [address] [place] [address] Care Team Providers Care Road Mechanic Name Role Phone Lee Collier MD Unavailable [phone] Debbie Medina MD Primary Care Provider + [phone] Kristopher Benitez RN Unavailable Unavailable Encounter Details Date Type Department Care Team (Late st Contact Info) Description 05/12/2025 Telephone [facility] [facility] [address] [facility], [address] [place] [address] Sherly Jarvis, RN None None Social History Tobacco Use [...] How often do you attend chur or yazidi services? More than 4 times per year [...] any time in the past 12 m [facility], were you homeless or living in a alf (including now)? No 01/19/2025 CAGE ASSESSMENT Answer [...] drink first t july in the morning (EYE-PUBLICITY EXPERT) to steady your nerves or to get [...] as of this encounter Miscellaneous Notes * Telephone Encounter - Sherly Jarvis RN - 05/12/2025 1:45 PM EST RN LVM to confirm pt appt. Sherly Jarvis RN documented in this encounter Plan of Treatment Upcoming Encounters Date Type Department Care Team (Late st Contact Info) Description 07/05/2025 3:00 PM EST Clinical Support [facility] Therapy [facility] [address] [place] [phone] 07/05/2025 3:30 PM EST Office Visit [facility]ology/BMT and Cellular Therapy Program [address] [place] [address] [place] [phone] Vaishnavi lAmaraz MD 800 [facility] [address] [place] [phone] 09/13/2025 10:30 AM EDT Clinical Support [facility] Therapy [facility] [address] [place] [address] [place] [phone] 09/13/2025 11:00 AM EDT Office Visit [facility]BMT [facility] Cellular Therapy Program [address] [place] [address] [place] [phone] Vaishnavi Almaraz MD 800 [facility] [address] [place] [phone] documented as of this encounter Visit [...] documented as of this encounter Care Teams Road Mechanic Relationship Specialty Start Date End Date Debbie Medina MD 208 [facility] [address] [place] [address] PCP - General 09/28/24 Lee Collier MD [address] [place] [phone] Internal Medicine 10/18/23 Quiggle, Summers M, RN None None Registered Nurse Hematology and Oncology 03/15/25 documented as of this encounter
--- OUTSIDE RECORDS SUMMARY | 2025-06-26 10:26 | XMS_ITS | Encounter Summary ---
Author Organization Healthcare Address [address] [place] [address] Care Team Providers Care Binder Coverstitch Name Role Phone Lee Collier MD Unavailable [phone] Debbie Medina MD Primary Care Provider + [phone] Kristopher Benitez RN Unavailable Unavailable Bekah Flores RN Unavailable Unavailable Reason for Visit * Reason Comments TCM Encounter Details Date Type Department Care Team (Late st Contact Info) Description 06/02/2025 Patient Outreach [facility] [address] [place] [address] Bekah Flores, DEANNA None None [...] often do you attend chur ch or jew services? More than 4 times per year 10/16/2022 Do you belong to any clubs o r organizations such as mu-ism groups, unions, fraternal or athletic groups, or [...] any time in the past 12 m [facility], were you homeless or living in a jail (including now)? No 05/21/2025 [facility] Utilities Answer Date Recorded In the past [...] drink first t july in the morning (EYE-COW TESTER) to steady your nerves or to get [...] as of this encounter Functional Status * Engagement Question Answer Date of Assessment Author Is the patient eligible? Yes 06/02/2025 2:26 PM Bekah Kim RN * Medications Question Answer Date of Assessment Author Nursing Interventions Nurse provided pat ient education 06/02/2025 2:26 PM Bekah Kim RN * Appointments Question Answer Date of Assessment Author Does the patient have a primary care provider? Yes 06/02/2025 2:26 PM Bekah Kim RN Does the patient have an appointment with their PCP within 7 days of discharge? Greater than 7 days 06/02/2025 2:26 PM Bekah Kim RN What is preventing the patient from scheduling follow up appointments within 7 days of discharge? Haven't had time 06/02/2025 2:26 PM Bekah Kim RN Nursing Interventions Verified appointme nt date/time/provider 06/02/2025 2:26 PM Bekah Kim RN Has the patient kept scheduled appointments due by today? Yes 06/02/2025 2:26 PM Bekah Kim RN Nursing Interventions Advised patient to keep appointment 06/02/2025 2:26 PM Bekah Kim RN * Self Management Question Answer Date of Assessment Author Has home health visited the patient within 72 hours of discharge? Not applicable 06/02/2025 2:26 PM Bekah Kim RN documented as of this encounter Mental Status * Pop Health Reason For Visit Assessment Group Question Answer Entry Date Author Outreach Reason Program Enrollment/Intake 06/02/2025 2:04 PM Bekah Kim RN Pop Health Reason For Encounter TCM 06/02/2025 2:04 PM Bekah Kim RN documented in this encounter Miscellaneous Notes * Progress Notes - Bekah Flores RN - 06/02/2025 2:04 PM EST Admit Date: 05/20 Discharge Date: 05/28 Hospital Service: Medicine Discharge Diagnosis: Recurrent SBP, Recurrent ascites requiring monthly paracentesis 06/02/2025 TCM call # 2 Patient Reached: Yes Outcome: Completed TCM. Got patient in with [facility] on 06/11 at 10am roll picker. Action: Assessment completed. SDOH needs. Patient reports being home alone and daughter lives in [place]. DC report states Inability to perform ADLs: Chart review multiple missed appointments over last 6 months, unfortunately with hospitalizations resulting from medication non-compliance PT/OT recommending home with 24-hour assistance Daughter willing to take patient home with her, however this seems like a temporary situation per patient Patient reports an uber took him home and he has been home alone since. He is waiting on a new caregiver from a company but unsure of the name. Medication changes: amoxicillin-clavulanate 875-125 MG tablet ciprofloxacin 500 MG tablet gabapentin 300 MG capsule [facility] appointment: 06/11 at 10am [facility]. Items to address at [facility]: ADLs, SDOH needs, Fall Risk, Antibiotic completion. documented in this encounter Plan of Treatment Upcoming Encounters Date Type Department Care Team ([facility] st Contact Info) Description 07/05/2025 3:00 PM EST Clinical Support [facility] Hematology/BMT and Cellular Therapy Program [address] [place] [phone] 07/05/2025 3:30 PM EST Office Visit [facility] Hematology/BMT and Cellular Therapy Program [address] [place] [phone] Vaishnavi Almaraz MD 800 [facility] [address] [place] [phone] 09/13/2025 10:30 AM EDT Clinical Support [facility] Hematology/BMT and Cellular Therapy Program [address] [place] [phone] 09/13/2025 11:00 AM EDT Office Visit [facility] Hematology/BMT and Cellular Therapy Program [address] [place] [phone] Vaishnavi Almaraz MD 800 [facility] [address] [place] [phone] documented as of this encounter Visit Diagnoses [...] documented as of this encounter Care Teams Binder Coverstitch Relationship Specialty Start Date End Date Debbie Medina MD 208 [facility] [address] [place] [address] PCP - General 09/28/24 Lee Collier MD [address] [place] [phone] Internal Medicine 10/18/23 Kristopher Benitez, DEANNA None None Registered Nurse Hematology and Oncology 03/15/25 Bekah Flores, DEANNA None None Registered Nurse 05/25/25 documented as of this encounter
--- OUTSIDE RECORDS SUMMARY | 2025-06-26 10:26 | XMS_ITS | Encounter Summary ---
Author Organization Healthcare Address [address] [place] [address] Care Team Providers Care Radiology Ct Technologist Name Role Phone Lee Collier MD Unavailable [phone] Debbie Medina MD Primary Care Provider + [phone] Kristopher Benitez RN Unavailable Unavailable Bekah Flores RN Unavailable Unavailable Encounter Details Date Type Department Care Team (Late st Contact Info) Description 06/09/2025 Telephone [facility]ology[facility]BMT and Cellular Therapy Program [address] [place] [address] Vaishnavi Almaraz MD 800 [facility] [address] [place] [address] Social History Tobacco Use Types Packs/Day Years [...] often do you attend chur ch or methodist services? More than 4 times per year [...] time in the past 12 m [facility], were you homeless or living in a retirement (including now)? No 06/18/2025 [facility] Utilities Answer Date Recorded In [...] drink first t july in the morning (EYE-SILK TOP HAT BODY MAKER) to steady your nerves or to get [...] encounter Miscellaneous Notes * Telephone Encounter - Kristopher Benitez RN - 06/09/2025 11:43 AM EST RN returned call to check on patient. We will get appointment rescheduled but RN wants to make surepatient is okay .RN asked patient to call us back when he gets this message. documented in this encounter Plan of Treatment Upcoming Encounters Date Type Department Care Team ([facility] st Contact Info) Description 07/05/2025 3:00 PM EST Clinical Support [facility]ology/BMT and Cellular Therapy Program [address] [phone] 07/05/2025 3:30 PM EST Office Visit [facility] Hematology/BMT and Cellular Therapy Program [address] [phone] Vaishnavi Almaraz MD 800 [facility] [address] [place] [phone] 09/13/2025 10:30 AM EDT Clinical Support [facility]ology/BMT and Cellular Therapy Program [address] [phone] 09/13/2025 11:00 AM EDT Office Visit [facility] Hematology/BMT and Cellular Therapy Program [address] [phone] Vaishnavi Almaraz MD 800 [facility] [address] [phone] documented as of this encounter Visit Diagnoses [...] documented as of this encounter Care Teams Radiology Ct Technologist Relationship Specialty Start Date End Date Debbie Medina MD 208 [facility] [address] [place] [address] PCP - General 09/28/24 Lee Collier MD [address] [place] [address] Internal Medicine 10/18/23 Kristopher Benitez RN None None Registered Nurse Hematology and Oncology 03/15/25 Bekah Flores RN None None Registered Nurse 05/25/25 documented as of this encounter
--- OUTSIDE RECORDS SUMMARY | 2025-06-26 10:26 | XMS_ITS | Encounter Summary ---
Author Organization Healthcare Address [address] [place] [address] Care Team Providers Care Claims Account Specialist Name Role Phone Lee Collier MD Unavailable [phone] Debbie Medina MD Primary Care Provider + [phone] Kristopher Benitez RN Unavailable Unavailable Bekah Flores RN Unavailable Unavailable Reason for Visit * Reason Comments HRCM Encounter Details Date Type Department Care Team (Late st Contact Info) Description 06/08/2025 Patient Outreach POPULATION HEALTH [address], [address] [place] [address] Bekah Flores, DEANNA None None [...] often do you attend chur ch or latter day services? More than 4 times per year 10/16/2022 Do you belong to any clubs o r organizations such as pentecostal groups, unions, fraternal or athletic groups, or [...] any time in the past 12 m onths, were you homeless or living in a [facility] (including now)? 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 He reports he feels too weak to walk to a car and walk into a hospital andsays the visit tomorrow is just for blood work and will talk to him. RN asked if patient needed to go to the ER due to his overall health right now and he reported no, he was fine but just worried about his day tomorrow with his caregiver who he has had trouble keeping and company doesn't always send someone. RN informed patient I would FU with him in 1-3 days. Next Steps: Check list updated. RN contacted RN with patient care at Hematology/Oncology, [facility] and informed of possible no show. Bekah Flores RN [facility] Nurse Population Health documented in this encounter Plan of Treatment Upcoming Encounters Date Type Department Care Team ([facility] Contact Info) Description 07/05/2025 3:00 PM EST Clinical Support [facility] [address] [place] [phone] 07/05/2025 3:30 PM EST Office Visit [facility] [address] [place] [phone] Vaishnavi Almaraz MD [address] [facility] [address] [place] [phone] 09/13/2025 10:30 AM EDT Clinical Support [facility] [address] [place] [phone] 09/13/2025 11:00 AM EDT Office Visit [facility] [address] [place] [phone] Vaishnavi Almaraz MD [address] [address] [place] [phone] documented as of this encounter Visit Diagnoses [...] documented as of this encounter Care Teams Claims Account Specialist Relationship Specialty Start Date End Date Debbie Medina MD [address] [facility] [address] [place] [address] PCP - General 09/28/24 Lee Collier MD [address] [place] [phone] Internal Medicine 10/18/23 Kristopher Benitez RN None None Registered Nurse Hematology and Oncology 03/15/25 Bekah Flores, DEANNA None None Registered Nurse 05/25/25 documented as of this encounter
--- OUTSIDE RECORDS SUMMARY | 2025-06-26 10:27 | XMS_ITS | Encounter Summary ---
Author Organization [employer] ([place], [place], [place], [place], [place]) Address [address] [place] [address] Care Team Providers Care Straddle Buggy Operator Name Role Phone Unavailable Primary Care Provider Unavailabl e Encounter Details Date Type Department Care Team (Late st Contact Info) Description 03/18/2020 Transcribed Document [facility] [place] [address] ProviderJeremiah MD [address] [place], [place] [phone] Social History Tobacco Use Types Packs/Day Years Used Date Smoking Tobacco: Never Assessed Sex and Gender Information Value Date Recorded Sex Assigned at Male 12/26/2021 7:43 PM CDT Legal Sex Male 7:43 PM CDT Gender Identity Male 12/26/2021 7:43 PM CDT Sexual Orientation Not on file documented as of this encounter Miscellaneous Notes * Cerner Conversion Note - Jeremiah Dover MD - 03/18/2020 11:46 AM CDT DATE OF ADMISSION: 03/18/2020 HISTORY OF PRESENT ILLNESS: This is a 70-year-old male with a chief complaint of chronic lower back pain as well as chronic bilateral knee pain for several years' duration, who is seen today for a followup visit. The patient is following up today for medication refills. He reports he is continuing to have some low back pain that is moderate. He reports his pain is a burning, aching sensation. He says that he is using heat in addition to his medication. He says that he gets about 60% relief from his medicine. He reports that he also does walk every day. The patient mentions he is in a bit more pain today because he has been moving into a new apartment and getting things organized there. The patient reports that he is tolerating his medication well and that he takes it as prescribed. He denies any adverse effects including toxic effect, sedation, driving problems, or GI problems. REVIEW OF SYSTEMS: Constitutional, respiratory, cardiovascular, ophthalmology, gastrointestinal, genitourinary, ENT, musculoskeletal, integumentary, neurology, psychiatry, endocrine, hematology were not changed from his last visit on February 19, 2020. PHYSICAL EXAMINATION: VITAL SIGNS: Blood pressure 172/79, weight 280, height 69 inches, heart rate 79, respiratory rate 16, O2 saturation 94%, temperature 97.0 Pain level 6 to 7. Hours of sleep 5. No change in physical and neurological exam. Muscle tone, power, sensory, and deep tendon reflexes were unchanged. The nurse's notes, vital signs, and medication were reviewed and evaluated. No sign of impairment or toxicity to medicine. The patient psych evaluation, urine drug screen, and SCOTT were appropriate for taking opioid medication. ASSESSMENT: 1. Chronic lower back pain secondary to degenerative joint disease and degenerative disk disease of the lumbosacral spine. 2. Lumbosacral radiculopathy. 3. Lumbosacral spondylosis. 4. Multiple myofascial pain. 5. Long-term opioid use. 6. Long-term use of high-risk medication. PLAN: 1. The patient has been fairly well controlled on current medication. The patient has a good compliance with pain clinic regulation in regard to urine drug screen, SCOTT, psych evaluation. We spent more than half of the time discussing the risks, benefits of the medication, how to keep it in a safe place, not to share with other people, not to mix with alcohol, or self-escalate it. 2. Continue [place] 5/325 mg 4 times daily as needed. 3. I have educated the patient to use non-pharmacologic measures to alleviate pain prior to using as needed opioid medication such as heat, ice, rest, relaxation, repositioning, exercise, stretches, TENS unit and/or massage. 4. Continue gabapentin 800 mg 4 times daily. 5. I have encouraged the patient to continue a healthy diet and home exercise program. 6. We provided the patient with some patient education regarding his [place] and gabapentin today including how to take the medication appropriately what to do if he misses a dose, any drug to drug interactions, drug to disease interactions or adverse reactions possible. We are going to provide that a copy for the patient to take home today. He is encouraged to ask any questions. 7. We are going to see the patient back in 1 month to reevaluate. 8. The assessment and plan for today's visit has been reviewed by Dr. Lazo, however, I have prescribed the medications for this patient's treatment plan today. The patient has been screened for symptoms or risk factors related to COVID-19 both prior to arrival for the visit and upon arrival at the clinic for the visit today. No risk factors or symptoms are identified at today's visit and the patient has been afebrile. /[id number] CHRISTA Calvert/AQ / JULIANA / MODL CC: ROSITA (REF) MD SABRINA Electronically signed by [facility], [facility] Conversion Phlebotomist Prn Cerner at 10/15/2022 6:06 PM CDT documented in this encounter Plan of Treatment Not on file documented as of this encounter Visit Diagnoses Not on filedocumented in this encounter
--- OUTSIDE RECORDS SUMMARY | 2025-06-26 10:27 | XMS_ITS | Encounter Summary ---
Author Organization [employer] ([place], [place], [place], [place], [place]) Address [address] [place] [address] Care Team Providers Care Validation Architect Name Role Phone Unavailable Primary Care Provider Unavailabl e Encounter Details Date Type Department Care Team (Late st Contact Info) Description 05/16/2020 Transcribed Document [facility] [place] [address] ProviderJeremiah MD [address] [place], [place] [phone] Social History Tobacco Use Types Packs/Day Years Used Date Smoking Tobacco: Never Assessed Sex and Gender Information Value Date Recorded Sex Assigned at Male 12/26/2021 7:43 PM CDT Legal Sex Male 7:43 PM CDT Gender Identity Male 12/26/2021 7:43 PM CDT Sexual Orientation Not on file documented as of this encounter Miscellaneous Notes * Cerner Conversion Note - Jeremiah Dover MD - 05/16/2020 4:00 PM SISAL PICKER DATE OF ADMISSION: 05/16/2020 HISTORY OF PRESENT ILLNESS: This is a 70-year-old male with a chief complaint of chronic lower back pain for several years' duration who is seen today for a followup visit. The patient is following up today for medication refills. He reports that he continues to take his [place] four times daily as needed and his gabapentin four times daily. The patient says the use of the medication makes him more functional. He says that he takes it exactly as prescribed. He denies any adverse effects including toxic effect, sedation, driving problems, or GI problems. He reports that he continues to have moderate low back pain. He says that he does use heat in addition to his medication and walking every day to help with his pain. He says that his pain is a shooting sensation. He says that his medication gives him at least 75% relief from the pain for several hours each dose and he is very happy with that. REVIEW OF SYSTEMS: Constitutional, respiratory, cardiovascular, ophthalmology, gastrointestinal, genitourinary, ENT, musculoskeletal, integumentary, neurology, psychiatry, endocrine, hematology were unchanged from his last visit on April 15, 2020. PHYSICAL EXAMINATION: VITAL SIGNS: Blood pressure 180/81, weight 220, height 69 inches, heart rate 74, respiratory rate 16, O2 saturation 95%, temperature 97.4. Pain level 6 to 7. Hours of [...] joint disease and degenerative disk disease of lumbosacral spine. 2. Lumbosacral radiculopathy. 3. Lumbosacral spondylosis. 4. Multiple myofascial pain. 5. Long-term opioid use. 6. Chronic bilateral knee pain secondary to osteoarthritis. 7. Long-term use of gabapentin. PLAN: 1. The patient has been fairly [...] with alcohol, or self-escalate it. 2. Continue [place] 5/325 mg four times daily as needed. 3. Continue gabapentin 800 mg four times daily. 4. I have educated the patient to use non-pharmacologic measures to alleviate pain prior to using as needed opioid medication such as heat, ice, rest, relaxation, repositioning, exercise, stretches, TENS unit and/or massage. 5. I have encouraged the patient to continue a healthy diet and home exercise program. 6. We are going to see the patient back in 1 month to re-evaluate. 7. The assessment and plan for today's visit has been reviewed by Dr. Lazo, however, I have prescribed the medications for this patient's treatment plan today. 8. The patient has been screened for symptoms or risk factors related to COVID-19 both prior to arrival for the visit and upon arrival at the clinic for the visit today. No risk factors or symptoms are identified at today's visit and the patient has been afebrile. /[id number] Iqra Casey APRN JULIANA/AQ / JULIANA / MODL CC: Mayco Moreno MD Electronically signed by [employer], [facility] Conversion Ecclesiastical Worker Cerner at 10/15/2022 5:57 PM CDT documented in this encounter Plan of Treatment Not on file documented as of this encounter Visit Diagnoses Not on filedocumented in this encounter
--- OUTSIDE RECORDS SUMMARY | 2025-06-26 10:27 | XMS_ITS | Encounter Summary ---
Author Organization [employer] ([place], [place], [place], [place], [place]) Address [address] [place] [address] Care Team Providers Care Desk Sergeant Name Role Phone Unavailable Primary Care Provider Unavailabl e Encounter Details Date Type Department Care Team (Late st Contact Info) Description 08/03/2019 Transcribed Document [facility] Family Medicine [facility] [place] [address] ProviderJeremiah MD [address] [place] [phone] Social History Tobacco Use Types Packs/Day Years Used Date Smoking Tobacco: Never Assessed Sex and Gender Information Value Date Recorded Sex Assigned at Male 12/26/2021 7:43 PM CDT Legal Sex Male 7:43 PM CDT Gender Identity Male 12/26/2021 7:43 PM CDT Sexual Orientation Not on file documented as of this encounter Miscellaneous Notes * Cerner Conversion Note - Jeremiah Dover MD - 08/03/2019 1:01 PM FLOOR WINDER DATE OF ADMISSION: 08/03/2019 HISTORY OF PRESENT ILLNESS: This is a 69-year-old male with a chief complaint of chronic lower back pain as well as chronic bilateral knee pain for several years' duration who is here today for a followup visit. The patient is following up for medication refill of his [place] and gabapentin, and the patient says that he continues to have pain primarily today in the bilateral knees. He reports his pain as an aching sensation. He says that he does walk in addition to doing his medication as prescribed. The patient says that he keeps his activity level steady. He says his pain is worse in the morning when he is first getting out of the bed. He says that he is taking his [place] 4 times daily as needed and gabapentin 4 times daily. He reports that the use of the medication does make him more functional. He denies any adverse effects including toxic effect, sedation, driving problems, or GI problems. REVIEW OF SYSTEMS: Constitutional, respiratory, cardiovascular, ophthalmology, gastrointestinal, genitourinary, ENT, musculoskeletal, integumentary, neurology, psychiatry, endocrine, hematology were not changed from his last visit on July 06, 2019. PHYSICAL EXAMINATION: VITAL SIGNS: Blood pressure 140/65, weight 220, height 69 inches, heart rate 80, respiratory rate 16, O2 saturation 94%, temperature 97.8. Pain level 6-7. Hours of sleep 4-5. No change in physical and neurological exam. [...] 2. Lumbosacral radiculopathy. 3. Lumbosacral spondylosis. 4. Bilateral knee pain secondary to osteoarthritis. 5. Long-term opioid use. 6. Obesity. PLAN: 1. The patient has been fairly [...] with alcohol, or self-escalate it. 2. Continue [place] 5/325 mg 4 times daily as needed. 3. I have educated the patient to use non-pharmacologic measures to alleviate pain prior to using as needed opioid medication such as heat, ice, rest, relaxation, repositioning, exercise, stretches, TENS unit and/or massage. 4. Continue gabapentin 800 mg 4 times daily. 5. We are going to see the patient back in 1 month to re-evaluate. 6. The assessment and plan for today's visit have been reviewed by Dr. Lazo, however, I have prescribed the medications for this patient's treatment plan today. /[id number] CHRISTA Calvert/AQ / JULIANA / MODL CC: Mayco Moreno MD Electronically signed by [employer], [facility] Conversion Video Game Maker Cerner at 10/15/2022 6:00 PM CDT documented in this encounter Plan of Treatment Not on file documented as of this encounter Visit Diagnoses Not on filedocumented in this encounter
--- OUTSIDE RECORDS SUMMARY | 2025-06-26 10:27 | XMS_ITS | Referral Summary ---
Author Organization [employer] [facility] ([place], [place], [place], [place], [place]) Address [address] [place] [address] Care Team Providers Care Orthodontic Treatment Coordinator Name Role Phone Unavailable Primary Care Provider [...]
--- OUTSIDE RECORDS SUMMARY | 2025-06-26 10:27 | XMS_ITS | Encounter Summary ---
Author Organization [employer] ([place], [place], [place], [place], [place]) Address [address] [place] [address] Care Team Providers Care Manager Employment Name Role Phone Unavailable Primary Care Provider Unavailabl e Encounter Details Date Type Department Care Team (Late st Contact Info) Description 10/26/2019 Transcribed Document [facility] [place] [facility] [place] [address] ProviderJeremiah MD [address] [place], [place] [phone] Social History Tobacco Use Types Packs/Day Years Used Date Smoking Tobacco: Never Assessed Sex and Gender Information Value Date Recorded Sex Assigned at Male 12/26/2021 7:43 PM CDT Legal Sex Male 7:43 PM CDT Gender Identity Male 12/26/2021 7:43 PM CDT Sexual Orientation Not on file documented as of this encounter Miscellaneous Notes * Cerner Conversion Note - Jeremiah Dover MD - 10/26/2019 1:21 PM CDT DATE OF ADMISSION: 10/26/2019 HISTORY OF PRESENT ILLNESS: This is a 69-year-old male with a chief complaint of chronic lower back pain as well as chronic bilateral knee pain for several years' duration, who is here today for a followup visit. The patient is following up for medication refills of his [place] and gabapentin. He reports that he continues to have pain across the low back that is moderate as well as bilateral knee pain. He says that the knee pain improves with activity and walking. He says that he does walk in addition to using heat and cold, and taking his gabapentin 4 times daily and his [place] 4 times daily as needed. The patient says that he does get good relief from the aching, throbbing sensation that he has. With that, the patient says that his home exercise program does help him quite a bit. He has not been able to do that very much due to the issues with the COVID-19 outbreak. The patient says that he is continuing to walk as much as he can. However, the patient reports that he takes his medication exactly as prescribed and that the use of the medication makes him more functional. He denies any adverse effects including toxic effect, sedation, driving problems, or GI problems. REVIEW OF SYSTEMS: Constitutional, respiratory, cardiovascular, ophthalmology, gastrointestinal, genitourinary, ENT, musculoskeletal, integumentary, neurology, psychiatry, endocrine, hematology were not changed from his last visit on September 28, 2019. PHYSICAL EXAMINATION: VITAL SIGNS: Blood pressure 178/81, weight 225, height 69 inches, heart rate 72, respiratory rate 16, O2 saturation 96%, temperature 97.1. Pain level 6 to 7, hours of sleep 5. No change in physical [...] 2. Lumbosacral radiculopathy. 3. Lumbosacral spondylosis. 4. Chronic bilateral knee pain secondary to osteoarthritis and degenerative joint disease. 5. Long-term opioid use. 6. Long-term use of high-risk medication. 7. Obesity. PLAN: 1. We screen the patient both prior to his visit today as well as upon arrival for symptoms related to COVID-19 and none are identified. The patient is afebrile today. 2. The patient has been fairly well controlled [...] to mix with alcohol, or self-escalate it. 3. Continue gabapentin 800 mg four times daily. 4. Continue [place] 5/325 mg four times daily as needed. 5. I have educated the patient to use non-pharmacologic measures to alleviate pain prior to using as needed opioid medication such as heat, ice, rest, relaxation, repositioning, exercise, stretches, TENS unit and/or massage. 6. I have encouraged the patient to continue a healthy diet and home exercise program. 7. We are going to see the patient back in one month to re-evaluate. 8. The assessment and plan for today's visit have been reviewed by Dr. Lazo, however, I have prescribed the medications for this patient's treatment plan today. /[id number] Iqra CHRISTA Avery/EDMAR / JULIANA / MODL Electronically signed by [employer] Conversion Seed And Fertilizer Specialist Cerner at 10/15/2022 5:53 PM CDT documented in this encounter Plan of Treatment Not on file documented as of this encounter Visit Diagnoses Not on filedocumented in this encounter
--- OUTSIDE RECORDS SUMMARY | 2025-06-26 10:27 | XMS_ITS | Encounter Summary ---
Author Organization [email or web address] ([place], [place], [place], [place], [place]) Address [address] [place] [address] Care Team Providers Care Corporate Events Director Name Role Phone Unavailable Primary Care Provider Unavailabl e Encounter Details Date Type Department Care Team (Late st Contact Info) Description 12/25/2019 Transcribed Document [facility] [place] [facility] [place] [address] ProviderJeremiah MD [address] [place] [id number] Social History Tobacco Use Types Packs/Day Years Used Date Smoking Tobacco: Never Assessed Sex and Gender Information Value Date Recorded Sex Assigned at Male 12/26/2021 7:43 PM CDT Legal Sex Male 7:43 PM CDT Gender Identity Male 12/26/2021 7:43 PM CDT Sexual Orientation Not on file documented as of this encounter Miscellaneous Notes * Cerner Conversion Note - Jeremiah Dover MD - 12/25/2019 10:11 AM CDT DATE OF ADMISSION: 12/25/2019 HISTORY OF PRESENT ILLNESS: This is a 69-year-old male with a chief complaint of chronic lower back pain as well as chronic bilateral knee pain for several years' duration, who is seen today for a followup visit. The patient is following up today for medication refills. He reports that he is having moderate to moderately severe pain in the low back as well as the bilateral knees. He says that this is his usual locations of pain. However, he says the pain has been getting worse lately. He says that he does get about 75% relief with his medication, but it only last about 4 or 5 hours. He says that the pain seems to be worse in the morning and improves after he is up and walking. He says that it is an aching and sharp sensation. He reports that he has more pain when he bends forward as well. He reports that he also does heat and cold in addition to walking every day to help with his pain. He says that he is not ready to do any injections here at the clinic. He says he has done those in the past and they did give him some relief, but he does not feel like the pain is bad enough to do that at this time. He says it is fairly well managed with his gabapentin which is taking four times daily and his Columbia that he is taking four times daily as needed. He denies any adverse effects from his medication including toxic effect, sedation, driving problems, or GI problems. REVIEW OF SYSTEMS: Constitutional, respiratory, cardiovascular, ophthalmology, gastrointestinal, genitourinary, ENT, musculoskeletal, integumentary, neurology, psychiatry, endocrine, hematology were not changed from his last visit on November 27, 2019. PHYSICAL EXAMINATION: VITAL SIGNS: Blood pressure 189/84, weight 275, height 69 inches, heart rate 80, respiratory rate 16, O2 saturation 95%, temperature 98.1. Pain level 7. Hours of sleep 4 to 5. No change in physical and neurological [...] of high-risk medication. 7. Obesity. PLAN: 1. The patient has been [...] mix with alcohol, or self-escalate it. 2. The patient has been screened for symptoms or risk factors related to COVID-19 both prior to arrival for the visit and upon arrival at the clinic for the visit today. No risk factors or symptoms are identified at today's visit and the patient has been afebrile. 3. I have educated the patient to use non-pharmacologic measures to alleviate pain prior to using as needed opioid medication such as heat, ice, rest, relaxation, repositioning, exercise, stretches, TENS unit and/or massage. 4. Continue Columbia 5/325 mg four times daily as needed. 5. Continue gabapentin 800 mg four times daily. 6. I have encouraged the patient to continue a healthy diet and home exercise program. 7. I have made the patient aware that we can do an injection for him whenever he is ready to do that for bilateral knees of the low back and he has voiced understanding. 8. We are going to see the patient back in one month to re-evaluate. 9. The assessment and plan for today's visit have been reviewed by Dr. Lazo, however, I have prescribed the medications for this patient's treatment plan today. /[id number] CHRISTA Calvert/AQ / JULIANA / MODL CC: Mayco Moreno MD Electronically signed by [facility], [facility] Conversion Commercial Journeyman Electrician Cerner at 10/15/2022 5:52 PM CDT documented in this encounter Plan of Treatment Not on file documented as of this encounter Visit Diagnoses Not on filedocumented in this encounter
--- OUTSIDE RECORDS SUMMARY | 2025-06-26 10:27 | XMS_ITS | Encounter Summary ---
Author Organization [employer] ([place], [place], [place], [place], [place]) Address [address] [place] [address] Care Team Providers Care Railroad Mechanic Name Role Phone Unavailable Primary Care Provider Unavailabl e Encounter Details Date Type Department Care Team (Late st Contact Info) Description 07/06/2019 Transcribed Document [facility] [place] [facility] [place] [address] ProviderJeremiah MD [address] [place], [place] [id number] Social History Tobacco Use Types Packs/Day Years Used Date Smoking Tobacco: Never Assessed Sex and Gender Information Value Date Recorded Sex Assigned at Male 12/26/2021 7:43 PM CDT Legal Sex Male 7:43 PM CDT Gender Identity Male 12/26/2021 7:43 PM CDT Sexual Orientation Not on file documented as of this encounter Miscellaneous Notes * Cerner Conversion Note - Jeremiah Dover MD - 07/06/2019 4:45 PM WIND TURBINE ELECTRICAL ENGINEER DATE OF ADMISSION: 07/06/2019 HISTORY OF PRESENT ILLNESS: This is a 69-year-old male with a chief complaint of chronic lower back pain as well as chronic bilateral knee pain for several years' duration, who is here today for followup visit. The patient is following up for medication refills as well as medication management. The patient reports that he continues to have low back pain that is moderately severe at times. He reports that he does get a decrease in his pain level with the use of his medication. The patient says he is also having bilateral knee pain, but he manages that with walking and home exercises. The patient says that he does have an aching, throbbing sensation. He reports that he also uses heat in addition to the home exercises and taking his gabapentin 4 times daily and [place] 4 times daily as needed. The patient reports that the use of the medication makes him more functional. He says that he uses it exactly as directed. He denies any adverse effects including toxic effect, sedation, driving problems, or GI problems. REVIEW OF SYSTEMS: Constitutional, respiratory, cardiovascular, ophthalmology, gastrointestinal, genitourinary, ENT, musculoskeletal, integumentary, neurology, psychiatry, endocrine, hematology were not changed from his last visit on June 08, 2019. PHYSICAL EXAMINATION: VITAL SIGNS: Blood pressure 155/72, weight 220, height 69 inches, heart rate 75, respiratory rate 16, O2 saturation 93%, temperature 96.6. Pain level 7. Hours of sleep 5. No change [...] with alcohol, or self-escalate it. 2. Continue [place] 5/325 mg 4 times daily as needed. 3. I have educated the patient to use non-pharmacologic measures to alleviate pain prior to using as needed opioid medication such as heat, ice, rest, relaxation, repositioning, exercise, stretches, TENS unit and/or massage. 4. Continue gabapentin 800 mg four times daily. 5. I have encouraged the patient to continue home exercises including walking and stretching as well as a healthy diet. 6. We are going to see the patient back in 1 month to re-evaluate. 7. The assessment and plan for today's visit has been reviewed by Dr. Lazo, however, I have prescribed the medications for this patient's treatment plan today. /[id number] DICTATED BY: Iqra Casey APRN for Karthik Lazo MD, SHUN Pain Certified Karthik Lazo MD, SHUN Pain Certified JULIANA/AQ / JULIANA / MODL CC: Mayco Moreno MD Electronically signed by [facility], [facility] Conversion Flask Pusher Cerner at 10/15/2022 5:51 PM CDT documented in this encounter Plan of Treatment Not on file documented as of this encounter Visit Diagnoses Not on filedocumented in this encounter
--- OUTSIDE RECORDS SUMMARY | 2025-06-26 10:27 | XMS_ITS | Encounter Summary ---
Author Organization Healthcare Address [address] [place] [address] Care Team Providers Care B2B Sales Professional Name Role Phone Lee Collier MD Unavailable [phone] Debbie Medina MD Primary Care Provider [phone] Kristopher Bentiez RN Unavailable Unavailable Bekah Flores RN Unavailable Unavailable Reason for Visit * Reason Onset Date Comments TEST CLAIM 06/18/2025 Encounter Details Date Type Department Care Team (Late st Contact Info) Description 06/18/2025 Telephone [facility] [address] [place] [address] Martha Hassan, advisor advocate angel co founder None None TEST CLAIM Social History Tobacco Use Types Packs/Day Years [...] often do you attend chur ch or yazidi services? More than 4 times [...] any time in the past 12 m [facility], were you homeless or living in a assisted (including now)? No 06/18/2025 [facility] Utilities Answer Date Recorded In the [...] drink first t july in the morning (EYE-RADIOLOGY SERVICES MANAGER) to steady your nerves or to get [...] Upcoming Encounters Date Type Department Care Team ([facility] Contact Info) Description 07/05/2025 3:00 PM EST Clinical Support [facility] Therapy [facility] [address] [place] [phone] 07/05/2025 3:30 PM EST Office Visit [facility] Therapy [facility] [address] [facility], [address] [place] [address] [place] [phone] Vaishnavi Almaraz MD [address] [facility] [address] [place] [phone] 09/13/2025 10:30 AM EDT Clinical Support [facility] Therapy [facility] [address] [place] [phone] 09/13/2025 11:00 AM EDT Office Visit [facility] Therapy [facility] [address] [facility] [place] [phone] Vaishnavi Almaraz MD [address] [facility] [address] [place] [phone] documented as of this encounter Visit [...] documented as of this encounter Care Teams B2B Sales Professional Relationship Specialty Start Date End Date Debbie Medina MD [address] [facility] [address] [place] [address] PCP - General 09/28/24 Lee Collier MD [address] [place] [phone] Internal Medicine 10/18/23 Kristopher Benitez, RN None None Registered Nurse Hematology and Oncology 03/15/25 Bekah Flores RN None None Registered Nurse 05/25/25 documented as of this encounter
--- OUTSIDE RECORDS SUMMARY | 2025-06-26 10:27 | XMS_ITS | Encounter Summary ---
Author Organization [employer] ([place], [place], [place], [place], [place]) Address [address] [place] [address] Care Team Providers Care Soft Work Wrapper Layer And Examiner Name Role Phone Unavailable Primary Care Provider Unavailabl e Encounter Details Date Type Department Care Team (Late st Contact Info) Description 04/03/2019 Transcribed Document [facility] [place] [facility] [place] [address] ProviderJeremiah MD [address] [place] [phone] Social History Tobacco Use Types Packs/Day Years Used Date Smoking Tobacco: Never Assessed Sex and Gender Information Value Date Recorded Sex Assigned at Male 12/26/2021 7:43 PM CDT Legal Sex Male 7:43 PM CDT Gender Identity Male 12/26/2021 7:43 PM CDT Sexual Orientation Not on file documented as of this encounter Miscellaneous Notes * Cerner Conversion Note - Jeremiah Dover MD - 04/03/2019 11:15 AM CDT DATE OF ADMISSION: 03/13/2019 HISTORY OF PRESENT ILLNESS: This is a 69-year-old male with a chief complaint of chronic lower back pain as well as chronic bilateral knee pain for several years' duration, who is here today for followup visit. The patient reports today that he continues to have low back pain that is an aching and stabbing sensation. The patient says he also continues to have bilateral knee pain. The patient reports that he does continue walking as well as using heat and cold to help him with his pain. The patient says that he does well with his medication and does get some help and relief. He reports that the relief, however, is not longstanding. He says that the relief from the Stehekin that he is taking 3 times daily only gives him about 2 hours of pain relief. The patient says then the pain returns and is moderate. He reports the pain is severe at times. The patient has been in compliance with the rules and regulations of the clinic. He reports that he tolerates the Stehekin well. He denies any adverse effects including toxic effects, sedation, driving problems, or GI problems. The patient is also taking gabapentin 4 times daily. He says that he tolerates that medication well. He denies any adverse effects from the medication. REVIEW OF SYSTEMS: Constitutional, Respiratory, Cardiovascular, Ophthalmology, Gastrointestinal, Genitourinary, ENT, Musculoskeletal, Integumentary, Neurology, Psychiatry, Endocrine, Hematology were not changed from his last visit on February 06, 2019. PHYSICAL EXAMINATION: Blood pressure 147/70, weight 225, height 69 inches, heart rate 73, respiratory rate 16, O2 sat 94%, temperature 98.5. Pain level, 7. Hours of sleep, 5. No change in physical and neurological exam. Muscle tone, power, sensory and deep tendon reflexes were unchanged. The nurse notes, vital signs and medication were reviewed and evaluated. No sign of impairment or toxicity to medicine. The patient's psych evaluation, urine drug screen and SCOTT were appropriate for taking opioid medication. ASSESSMENT: 1. Chronic lower back pain, secondary to degenerative joint disease and degenerative disk disease of the lumbosacral spine. 2. Lumbosacral radiculopathy. 3. Lumbosacral spondylosis. 4. Chronic bilateral knee pain, secondary to degenerative joint disease. 5. Long-term opioid use. 6. Long-term use of high-risk medication. 7. Obesity. PLAN: 1. The patient has been fairly well controlled on current medication. The patient has a good compliance with pain clinic regulation in regard urine drug screen SCOTT Psych evaluation. We spent more than half of the time discussing the risks, benefits of the medication, how to keep it in safe place, not to share with other people, not to mix with alcohol, or self-escalate it. 2. We are going to increase the patient's Stehekin 5/325 mg to 4 times daily as needed. The patient has been doing well with that, has been on it for many years. He has been in excellent compliance with the rules and regulations of the clinic. The patient does well with his medication. We will try him on this to see if we can get him more pain relief and result in him being more functional and re-evaluate that at the next visit. 3. We are going to continue gabapentin 800 mg 4 times daily. 4. I have educated the [...] patient back in one month to re-evaluate. 7. The assessment and plan for today's visit has been reviewed by Dr. Lazo, however, I have prescribed the medications for this patient's treatment plan today. Dictated By: Iqra Casey APRN For Karthik Lazo M.D., SHUN Pain Certified Karthik Lazo M.D., SHUN Pain Certified Dict: 04/03/2019 11:15:08 Trans: 04/03/2019 13:52:10 CC1: Karthik Lazo M.D., SHUN Pain Certified CC2: Mayco Moreno MD documented in this encounter Plan of Treatment Not on file documented as of this encounter Visit Diagnoses Not on filedocumented in this encounter
--- OUTSIDE RECORDS SUMMARY | 2025-06-26 10:27 | XMS_ITS | Encounter Summary ---
Author Organization [employer] ([place], [place], [place], [place], [place]) Address [address] [place] [address] Care Team Providers Care Cancer Genetic Counselor Name Role Phone Unavailable Primary Care Provider Unavailabl e Encounter Details Date Type Department Care Team (Late st Contact Info) Description 05/11/2019 Transcribed Document [facility] [place] [facility] [place] [address] ProviderJeremiah MD [address] [place], [place] [phone] Social History Tobacco Use Types Packs/Day Years Used Date Smoking Tobacco: Never Assessed Sex and Gender Information Value Date Recorded Sex Assigned at Male 12/26/2021 7:43 PM CDT Legal Sex Male 7:43 PM CDT Gender Identity Male 12/26/2021 7:43 PM CDT Sexual Orientation Not on file documented as of this encounter Miscellaneous Notes * Cerner Conversion Note - Jeremiah Dover MD - 05/11/2019 5:20 PM PLASTIC CNC MACHINE OPERATOR DATE OF SERVICE: 05/11/2019 HISTORY OF PRESENT ILLNESS: This is a 69-year-old male with a chief complaint of chronic lower back pain for several years' duration who is here today for followup visit. The patient is following up for medication management and refills. He reports that he continues to have bilateral knee pain as well as low back pain. He states his pain is an aching and shooting sensation. He reports that he is using heat and cold in addition to walking every day and taking his gabapentin 4 times daily and Frost[place] 4 times daily as needed. The patient reports that the use of the medication makes him more functional. He states that he is able to walk more after he takes his medicine. He reports that he takes it exactly as prescribed and denies any adverse effects including toxic effect, sedation, driving problems or GI problems. REVIEW OF SYSTEMS: Constitutional, respiratory, cardiovascular, ophthalmology, gastrointestinal, genitourinary, ENT, musculoskeletal, integumentary, neurology, psychiatry, endocrine, hematology were not changed from his last visit on April 10, 2019. PHYSICAL EXAMINATION: VITAL SIGNS: Blood pressure 158/72, weight 225, height 69 inches, heart rate 73, respiratory rate 16, O2 sat 94%, temperature 97.1. Pain level 7. Hours of sleep 4 [...] with alcohol, or self-escalate it. 2. Continue Frost[place] 5/325 mg 4 times daily as needed. 3. I have educated the patient to use non-pharmacologic measures to alleviate pain prior to using as needed opioid medication such as heat, ice, rest, relaxation, repositioning, exercise, stretches, TENS unit and/or massage. 4. Continue gabapentin 800 mg 4 times daily. 5. I have encouraged the patient to continue healthy diet and home exercise program. 6. We are going to see the patient back after 1 month to re-evaluate. 7. The assessment and plan for today's visit has been reviewed by Dr. Lazo, however, I have prescribed the medications for this patient's treatment plan today. /[id number] DICTATED BY: Iqra Casey APRN for Karthik Lazo MD, SHUN Pain Certified Karthik Lazo MD, SHUN Pain Certified TK/AQ / JUANA / MODL /[id number] CC: Mayco Moreno MD Electronically signed by [employer], [facility] Conversion Clinical Pharmacy Specialist Cerner at 10/15/2022 6:14 PM CDT documented in this encounter Plan of Treatment Not on file documented as of this encounter Visit Diagnoses Not on filedocumented in this encounter
--- OUTSIDE RECORDS SUMMARY | 2025-06-26 10:27 | XMS_ITS | Encounter Summary ---
Author Organization [employer] ([place], [place], [place], [place], [place]) Address [address] [place] [address] Care Team Providers Care Injury/Safety Hazard Assessment Name Role Phone Unavailable Primary Care Provider Unavailabl e Encounter Details Date Type Department Care Team (Late st Contact Info) Description 02/19/2020 Transcribed Document [facility] [place] [facility] [place] [address] ProviderJeremiah MD [address], [place] [id number] Social History Tobacco Use Types Packs/Day Years Used Date Smoking Tobacco: Never Assessed Sex and Gender Information Value Date Recorded Sex Assigned at Male 12/26/2021 7:43 PM CDT Legal Sex Male 7:43 PM CDT Gender Identity Male 12/26/2021 7:43 PM CDT Sexual Orientation Not on file documented as of this encounter Miscellaneous Notes * Cerner Conversion Note - Jeremiah Dover MD - 02/19/2020 11:13 AM CDT DATE OF ADMISSION: 02/19/2020 HISTORY OF PRESENT ILLNESS: This is a 70-year-old male with a chief complaint of chronic lower back pain as well as chronic bilateral knee pain for several years' duration who is seen today for a followup visit. The patient is following up today for medication management and refills. He reports that he is continuing to have moderate low back pain as well as bilateral knee pain. He says the pain has been a bit worse over the last few weeks. He reports it as a burning, aching sensation. He says that he is using heat in addition to his medication to help with his pain. He reports that he is taking his [place] 4 times daily as needed and his gabapentin 4 times daily. He says that the medication is giving him about 60% relief from his pain and making him somewhat more functional. He says that he is able to walk better when he takes his medication. He reports that he is taking it exactly as prescribed. He denies any adverse effects including toxic effect, sedation, driving problems or GI problems. Patient does have urine drug screening noted from his last visit on January 22, 2020, that is consistent with his current medications. He says that he would be interested in getting an injection, but not right now. He says that he would like to postpone that until closer to winter time. The patient does have some elevated blood pressure today. He says it is always like that. When asked when the patient has last seen his primary care physician, he says that his primary care physician is not seeing patients due to COVID, so it has been several years actually since he has had a primary care physician. He says that he is not taking any other medications besides the medications that we prescribed for him. He says that he would like to have a primary care physician so that he can have a visit and workup with some blood work. REVIEW OF SYSTEMS: Constitutional, respiratory, cardiovascular, ophthalmology, gastrointestinal, genitourinary, ENT, musculoskeletal, integumentary, neurology, psychiatry, endocrine, hematology were not changed from his last visit on January 22, 2020. PHYSICAL EXAMINATION: VITAL SIGNS: Blood pressure 178/86, weight 225, height 69 inches, heart rate 74, respiratory rate 16, O2 saturation 95%, temperature 96.8. Pain level 6 to 7. Hours of [...] 4. Chronic bilateral knee pain secondary to osteoarthritis. 5. Long-term opioid use. 6. Long-term use [...] mix with alcohol, or self-escalate it. 2. I have reviewed the patient's urine drug screening from his last visit on January 22, 2020. It is consistent with his current medications. We are going to continue to repeat those randomly. 3. I have had a lengthy discussion with the patient in regard to his blood pressure and the need for primary care physician. We are going to give him a referral to Dr. Ernie Torres. We will give him Dr. Torres's information for him to contact and make an appointment. I have advised the patient of this since he says that this clinic here is the easiest for him to get to from his home and that physician is in the same building. Hopefully, he will be able to get an appointment and get some workup done. He agrees to call the doctor and make that appointment. 4. Continue [place] 5/325 mg 4 times daily as needed. 5. I have educated the patient to use non-pharmacologic measures to alleviate pain prior to using as needed opioid medication such as heat, ice, rest, relaxation, repositioning, exercise, stretches, TENS unit and/or massage. 6. Continue gabapentin 800 mg 4 times daily. 7. I have had a lengthy discussion about doing injections here at the clinic. I have advised the patient that we can do some injection of steroid for the bilateral knees, so that he can be more mobile. He says that he may consider doing that in the future. 8. We are going to plan to see the patient back in 1 month to re-evaluate. 9. The assessment and plan for today's visit have been reviewed by Dr. Lazo, however, I have prescribed the medications for this patient's treatment plan today. 10. The patient has been screened for symptoms or risk factors related to COVID-19 both prior to arrival for the visit and upon arrival at the clinic for the visit today. No risk factors or symptoms are identified at today's visit and the patient has been afebrile. /[id number] Iqra Casey APRN JULIANA/AQ / JULIANA / MODL CC: Mayco Moreno MD Electronically signed by [facility], [facility] Conversion Program Assistant Cerner at 10/15/2022 5:52 PM CDT documented in this encounter Plan of Treatment Not on file documented as of this encounter Visit Diagnoses Not on filedocumented in this encounter
--- OUTSIDE RECORDS SUMMARY | 2025-06-26 10:27 | XMS_ITS | Encounter Summary ---
Author Organization Healthcare Address [address] [place] [address] Care Team Providers Care Machine Lacer Name Role Phone Lee Collier MD Unavailable [phone] Debbie Medina MD Primary Care Provider + [phone] Kristopher Benitez RN Unavailable Unavailable Bekah Flores RN Unavailable Unavailable Encounter Details Date Type Department Care Team (Latest Contact Info) Description 06/19/2025 Travel Social History Tobacco Use Types Packs/Day [...] Never 10/16/2022 How often do you attend [facility] or baptist services? More than 4 times per year 10/16/2022 Do you belong to any clubs o r organizations such as methodist groups, unions, fraternal or athletic groups, or [...] you are drinking? Patient does not drink 3 Q3: How often do you have si [...] living in a [facility] (including now)? No 06/18/2025 [facility] Utilities Answer Date Recorded In the past 12 months has e electric, gas, oil, or water company [...] drink first t july in the morning (EYE-CORE CUTTER) to steady your nerves or to get [...] Upcoming Encounters Date Type Department Care Team ([facility] st Contact Info) Description 07/05/2025 3:00 PM EST Clinical Support [facility] Hematology/BMT and Cellular Therapy Program [address] [place] [phone] 07/05/2025 3:30 PM EST Office Visit [facility] Hematology/BMT and Cellular Therapy Program [address] [place] [address] Vaishnavi Almaraz MD 800 [facility] [address] [place] [phone] 09/13/2025 10:30 AM EDT Clinical Support [facility] Hematology/BMT and Cellular Therapy Program [address] [place] [address] 09/13/2025 11:00 AM EDT Office Visit [facility] Hematology/BMT and Cellular Therapy Program [address] [place] [phone] Vaishnavi Almaraz MD 800 [facility] [address] [place] [phone] documented as of this encounter Visit Diagnoses [...] documented as of this encounter Care Teams Machine Lacer Relationship Specialty Start Date End Date Debbie Medina MD [address] [facility] [address] [place] [address] PCP - General 09/28/24 Lee Collier MD [address] [place] [phone] Internal Medicine 10/18/23 Kristopher Benitez RN None None Registered Nurse Hematology and Oncology 03/15/25 Bekah Flores, DEANNA None None Registered Nurse 05/25/25 documented as of this encounter
--- OUTSIDE RECORDS SUMMARY | 2025-06-26 10:27 | XMS_ITS | Encounter Summary ---
Author Organization Healthcare Address [address] [place] [address] Care Team Providers Care Minor League Baseball Player Name Role Phone Lee Collier MD Unavailable [phone] Debbie Medina MD Primary Care Provider + [phone] Kristopher Benitez RN Unavailable Unavailable Bekah Flores RN Unavailable Unavailable Encounter Details Date Type Department Care Team (Late st Contact Info) Description 05/20/2025 Results Follow-Up [facility] Interventional Radiology [address] [place] [address] Mary Cardona, WASTE TRANSPORTATION TECHNICIAN [address] [place] [address] Social History Tobacco Use Types Packs/Day Years [...] often do you attend chur ch or christian services? More than 4 times per year 10/16/2022 Do you belong to any clubs o r organizations such as jainism groups, unions, fraternal or athletic groups, or [...] any time in the past 12 m [facility], were you homeless or living in a penitentiary (including now)? No 05/21/2025 [facility] Utilities Answer Date Recorded In [...] drink first t july in the morning (EYE-IT HELP DESK ASSOCIATE) to steady your nerves or to get [...] CC Hematology/BMT and Cellular Therapy Program 750 [facility], [address] [place] [address] [place] [address] 07/05/2025 3:30 PM EST Office Visit [facility] Hematology/BMT and Cellular Therapy Program [address] [place] [phone] Vaishnavi Almaraz MD 800 [facility] [address] [phone] 09/13/2025 10:30 AM EDT Clinical Support [facility] Hematology/BMT and Cellular Therapy Program [address] [place] [address] [place] [phone] 09/13/2025 11:00 AM EDT Office Visit [facility] Hematology/BMT and Cellular Therapy Program [address] [place] [address] [place] [address] Vaishnavi Almaraz MD 800 [facility] [address] [phone] documented as of this encounter Visit Diagnoses [...] documented as of this encounter Care Teams Minor League Baseball Player Relationship Specialty Start Date End Date Debbie Medina MD [address] [facility] [address] [place] [address] PCP - General 09/28/24 Lee Collier MD [address] [place] [phone] Internal Medicine 10/18/23 Kristopher Benitez, DEANNA None None Registered Nurse Hematology and Oncology 03/15/25 Bekah Flores RN None None Registered Nurse 05/25/25 documented as of this encounter
--- OUTSIDE RECORDS SUMMARY | 2025-06-26 10:27 | XMS_ITS | Encounter Summary ---
Author Organization [employer] ([place], [place], [place], [place], [place]) Address [address] [place] [address] Care Team Providers Care Strategic Alliances Manager Name Role Phone Unavailable Primary Care Provider Unavailabl e Encounter Details Date Type Department Care Team (Late st Contact Info) Description 01/09/2019 Transcribed Document [facility] [place] [address] ProviderJeremiah MD [address] [place] [id number] Social History Tobacco Use Types Packs/Day Years Used Date Smoking Tobacco: Never Assessed Sex and Gender Information Value Date Recorded Sex Assigned at Male 12/26/2021 7:43 PM CDT Legal Sex Male 7:43 PM CDT Gender Identity Male 12/26/2021 7:43 PM CDT Sexual Orientation Not on file documented as of this encounter Miscellaneous Notes * Cerner Conversion Note - Jeremiah Dover MD - 01/09/2019 12:13 PM CDT DATE OF ADMISSION: 01/09/2019 HISTORY OF PRESENT ILLNESS: This is a 68-year-old male with a chief complaint of chronic lower back pain as well as chronic bilateral knee pain for several years' duration, who is here today for a followup visit. The patient reports today that he continues to have low back pain as well as pain in the bilateral knees and pain in his right arm. The patient says that his pain is getting much worse. The patient says it is moderate to severe at times. The patient reports a burning, stabbing, aching, throbbing sensation, but he does use heat in addition to his pain medication. The patient continues to use [place] 5/325 mg 3 times daily as needed and gabapentin 800 mg 4 times daily. The patient denies any adverse effects from the medication including toxic effects, sedation, driving problems, or GI problems. The patient reports he takes his medication exactly as prescribed and the use of the medication makes him more functional. REVIEW OF SYSTEMS: Constitutional, Respiratory, Cardiovascular, Ophthalmology, Gastrointestinal, Genitourinary, ENT, Musculoskeletal, Integumentary, Neurology, Psychiatry, Endocrine, Hematology were not changed from his last visit on December 10, 2018. PHYSICAL EXAMINATION: Blood pressure 160/74, weight 225, height 69 inches, heart rate 66, respiratory rate 16, O2 sat 94%, temperature 97.1. Pain level 8. Hours of sleep 5. No change in physical and neurological exam. Muscle tone power sensory and deep tendon reflexes were unchanged. The nurse notes, vital signs, and medication were reviewed and evaluated. No sign of impairment or toxicity to medicine. The patient psych evaluation, urine drug screen, and SCOTT were appropriate for taking opioid medication. ASSESSMENT: 1. Chronic lower back pain secondary to degenerative joint disease and degenerative disk disease of lumbosacral spine. 2. Lumbosacral radiculopathy. 3. Lumbosacral spondylosis. 4. Chronic bilateral knee pain secondary to degenerative joint disease and osteoarthritis. 5. Long-term opioid use. 6. Long-term [...] with alcohol, or self-escalate it. 2. Continue Mcdade 5/325 mg 3 times daily as needed. 3. Continue gabapentin 800 mg 4 times daily. 4. I have made the patient aware that we can repeat an injection for his back or possibly do some steroid injection to his bilateral knees and the patient says that he will consider doing that at the next visit. 5. I have encouraged the patient to continue walking and a home exercise program as well as a healthy diet. 6. We are going to see the patient back after one month to re-evaluate. 7. The assessment and plan for today's visit has been reviewed by Dr. Lazo; however, medications have been prescribed by myself for this patient's treatment plan. Dictated By: Iqra Casey APRN For Karthik Lazo M.D., SHUN Pain Certified Karthik Lazo M.D., SHUN Pain Certified Dict: 01/09/2019 12:13:00 Trans: 01/09/2019 13:22:43 CC1: Karthik Lazo M.D., SHUN Pain Certified CC2: Mayco Moreno MD Electronically signed by [facility] Conversion Raw Stock Drier Tender Cerner at 10/15/2022 6:13 PM CDT documented in this encounter Plan of Treatment Not on file documented as of this encounter Visit Diagnoses Not on filedocumented in this encounter
--- OUTSIDE RECORDS SUMMARY | 2025-06-26 10:27 | XMS_ITS | Encounter Summary ---
Author Organization [employer] ([place], [place], [place], [place], [place]) Address [address] [place] [address] Care Team Providers Care Communications Technologist Name Role Phone Unavailable Primary Care Provider Unavailabl e Encounter Details Date Type Department Care Team (Late st Contact Info) Description 06/08/2019 Transcribed Document [facility] [place] [facility] [place] [address] ProviderJeremiah MD [address] [place] [phone] Social History Tobacco Use Types Packs/Day Years Used Date Smoking Tobacco: Never Assessed Sex and Gender Information Value Date Recorded Sex Assigned at Male 12/26/2021 7:43 PM CDT Legal Sex Male 7:43 PM CDT Gender Identity Male 12/26/2021 7:43 PM CDT Sexual Orientation Not on file documented as of this encounter Miscellaneous Notes * Cerner Conversion Note - Jeremiah Dover MD - 06/08/2019 4:07 PM NATURAL RESOURCE TECHNICIAN DATE OF ADMISSION: 06/08/2019 HISTORY OF PRESENT ILLNESS: This is a 69-year-old male with a chief complaint of chronic lower back pain as well as chronic bilateral knee pain for several years' duration, who is here today for a followup visit. The patient is following up for medication refills. He reports that he continues to have low back pain as well as bilateral knee pain. The patient says that the low back pain does not radiate to the lower extremities. The patient reports his pain as an aching and throbbing sensation. He says that he does use walking in addition to taking his medication to help with his pain. He is using his [place] 4 times daily as needed and gabapentin 4 times daily. The patient says that the use of medication does make him more functional. He says that he is able to do more things inside and outside the home. He denies any adverse effects including toxic effect, sedation, driving problems, or GI problems. He reports that he uses his medication exactly as prescribed. The patient says that he stays in strict compliance with the rules and regulations of the clinic. REVIEW OF SYSTEMS: Constitutional, respiratory, cardiovascular, ophthalmology, gastrointestinal, genitourinary, ENT, musculoskeletal, integumentary, neurology, psychiatry, endocrine, hematology were unchanged from his last visit on May 11, 2019. PHYSICAL EXAMINATION: VITAL SIGNS: Blood pressure 173/74, weight 220, height 69 inches, heart rate 85, respiratory rate 16, O2 saturation 94%, temperature 98.4. Pain level, 7. Hours of sleep, 4 to 5. No change in physical [...] 4. Chronic bilateral knee pain, secondary to osteoarthritis. 5. Long-term opioid use. 6. Obesity. 7. Long-term use of high-risk medication. PLAN: 1. [...] with alcohol, or self-escalate it. 2. Continue [place] 5/325 mg four times daily as needed. 3. I have [...] medications for this patient's treatment plan today. /[id number] DICTATED BY: Iqra Casey APRN for Karthik Lazo MD, SHUN Pain Certified Karthik Lazo MD, SHUN Pain Certified JULIANA/AQ / JULIANA / MODL CC: Mayco Moreno MD Electronically signed by [facility], [facility] Conversion Condominium Association Manager Cerner at 10/15/2022 6:06 PM CDT documented in this encounter Plan of Treatment Not on file documented as of this encounter Visit Diagnoses Not on filedocumented in this encounter
--- OUTSIDE RECORDS SUMMARY | 2025-06-26 10:27 | XMS_ITS | Encounter Summary ---
Author Organization [employer] ([place], [place], [place], [place], [place]) Address [address] [place] [address] Care Team Providers Care Forest Patrolman Name Role Phone Unavailable Primary Care Provider Unavailabl e Encounter Details Date Type Department Care Team (Late st Contact Info) Description 08/31/2019 Transcribed Document [facility] [place] Family Medicine [facility] [place] [address] ProviderJeremiah MD [address] [place], [place] [phone] Social History Tobacco Use Types Packs/Day Years Used Date Smoking Tobacco: Never Assessed Sex and Gender Information Value Date Recorded Sex Assigned at Male 12/26/2021 7:43 PM CDT Legal Sex Male 7:43 PM CDT Gender Identity Male 12/26/2021 7:43 PM CDT Sexual Orientation Not on file documented as of this encounter Miscellaneous Notes * Cerner Conversion Note - Jeremiah Dover MD - 08/31/2019 12:45 PM CLOTH CARRIER DATE OF ADMISSION: 08/31/2019 HISTORY OF PRESENT ILLNESS: This is a 69-year-old male with a chief complaint of chronic lower back pain for several years' duration who is here today for a followup visit. The patient is following up for medication refills. He reports that he continues to have bilateral knee pain as well as some lower back pain. He reports his pain is an aching, throbbing sensation. He also says it is just shooting sensation. He says that he does use heat in addition to home exercises to help with his pain. The patient says that he is taking his [place] 4 times daily as needed and his gabapentin 4 times daily. The patient says that he takes his medication exactly as prescribed and that the use of the medication does help him being more functional. He says that he walks on a daily basis. He says that his pain seems to be worse in the morning when he is first getting up in his knees, however, the pain in the low back begins after he has been up and active for a while. The patient says that he does not have any adverse effects from his medication including toxic effect, sedation, driving problems, or GI problems. The patient says that he may be interested in doing knee injections in the future. He says that the last knee injection that he had here at the clinic did help him for an extended period of time. He says that he will consider doing that possibly in the upcoming visit. REVIEW OF SYSTEMS: Constitutional, respiratory, cardiovascular, ophthalmology, gastrointestinal, genitourinary, ENT, musculoskeletal, integumentary, neurology, psychiatry, endocrine, hematology were not changed from his last visit on August 03, 2019. PHYSICAL EXAMINATION: VITAL SIGNS: Blood pressure 175/83, weight 220, height 69 inches, heart rate 67, respiratory rate 18, O2 saturation 94%, temperature 97.1. Pain level 7. Hours of sleep 5. [...] with alcohol, or self-escalate it. 2. Continue [place] 5/325 mg 4 times daily as needed. 3. Continue gabapentin 800 mg 4 times daily. 4. I have educated the patient to use non-pharmacologic measures to alleviate pain prior to using as needed opioid medication such as heat, ice, rest, relaxation, repositioning, exercise, stretches, TENS unit and/or massage. 5. I have encouraged the patient to let us know when he would like to have his knee injections done so that we can get him on the schedule for that to give him some additional help and relief. 6. We are going to see the patient back in 1 month to re-evaluate. 7. The assessment and plan for today's visit have been reviewed by Dr. Lazo, however, I have prescribed the medications for this patient's treatment plan today. /[id number] CHRISTA Calvert/AQ / JULIANA / MODL CC: Mayco Moreno MD Electronically signed by [facility] Conversion Pipe Line Gauger Cerner at 10/15/2022 6:15 PM CDT documented in this encounter Plan of Treatment Not on file documented as of this encounter Visit Diagnoses Not on filedocumented in this encounter
--- OUTSIDE RECORDS SUMMARY | 2025-06-26 10:27 | XMS_ITS | Encounter Summary ---
Author Organization [employer] ([place], [place], [place], [place], [place]) Address [address] [place] [address] Care Team Providers Care Industrial Sales Engineer Name Role Phone Unavailable Primary Care Provider Unavailabl e Encounter Details Date Type Department Care Team (Late st Contact Info) Description 04/10/2019 Transcribed Document [facility] [place] [facility] [address] ProviderJeremiah MD [address] [place], [place] [id number] Social History Tobacco Use Types Packs/Day Years Used Date Smoking Tobacco: Never Assessed Sex and Gender Information Value Date Recorded Sex Assigned at Male 12/26/2021 7:43 PM CDT Legal Sex Male 7:43 PM CDT Gender Identity Male 12/26/2021 7:43 PM CDT Sexual Orientation Not on file documented as of this encounter Miscellaneous Notes * Cerner Conversion Note - Jeremiah Dover MD - 04/10/2019 8:12 AM CDT DATE OF ADMISSION: 04/10/2019 HISTORY OF PRESENT ILLNESS: This is a 69-year-old male with a chief complaint is chronic low back pain and both knee pain for several years' duration, came today for followup. The patient mentioned that his pain has been fairly well controlled with interventional treatment to his back and knees as well as his current medication. He is taking hydrocodone 5/325, 3 times a day and he denied any major side effect to his medication, which include toxic effect, sedation, driving problem, or GI problem. The patient is keeping his medication in safe lock place and following rule and regulation of the clinic and his last urine drug screen on March 13, 2019, was appropriate for taking his medication. REVIEW OF SYSTEMS: Constitutional, Respiratory, Cardiovascular, Ophthalmology, Gastrointestinal, Genitourinary, ENT, Musculoskeletal, Integumentary, Neurology, Psychiatry, Endocrine, Hematology were not changed from March 03, 2019. PHYSICAL EXAMINATION: Blood pressure 156/74, heart rate is 72, respirations 16, saturation 94%, temperature 97.5. Pain level 6-7. Hours of sleep is 5. No change in physical and neurological [...] degenerative joint disease and degenerative disk disease to the lumbosacral spine. 2. Lumbosacral radiculopathy. 3. Lumbosacral spondylosis. 4. Bilateral knee pain secondary to osteoarthritis. 5. Long-term opioid use. 6. Obesity. PLAN: We are going to continue with the same plan: 1. Hydrocodone 5/325, 4 times a day. 2. Gabapentin 800 mg 4 times a day. 3. The patient has been fairly well controlled [...] to mix with alcohol, or self-escalate it. 4. Encourage the patient to continue home exercise, walking and stretching. 5. I also discussed with the patient about the healthy style of life, healthy diet, and losing weight. 6. I also mentioned to the patient in case if his pain aggravating instead of going upwards his opioid medication will be good idea to repeat the injection to the knee and back and gave the patient quick help and relief, so we can start more of exercise and physical therapy as well as losing weight. 7. I am going to see the patient after one month to re-evaluate him. Karthik Lazo M.D., SHUN Pain Certified Dict: 04/10/2019 08:12:51 Trans: 04/10/2019 10:10:13 CC1: Karthik Lazo M.D., SHUN Pain Certified CC2: Dr. Mayco Moreno Electronically signed by Mango [facility] Conversion Billiard Table Assembler Cerner at 10/15/2022 5:59 PM CDT documented in this encounter Plan of Treatment Not on file documented as of this encounter Visit Diagnoses Not on filedocumented in this encounter
--- OUTSIDE RECORDS SUMMARY | 2025-06-26 10:27 | XMS_ITS | Encounter Summary ---
Author Organization Healthcare Address [address] [place] [address] Care Team Providers Care Entry Level Electrical Engineer Name Role Phone Lee Collier MD Unavailable [phone] Debbie Medina MD Primary Care Provider + [phone] Kristopher Benitez RN Unavailable Unavailable Reason for Visit * Reason Comments Link Encounter Details Date Type Department Care Team (Late st Contact Info) Description 05/21/2025 Patient Outreach [facility] [address], [address] [place] [address] Binta Jones Social History Tobacco Use Types Packs/Day Years [...] often do you attend chur ch or restorationism services? More than 4 times per year 10/16/2022 Do you belong to any clubs o r organizations such as sabianist groups, unions, fraternal or athletic groups, or [...] any time in the past 12 m [facility], were you homeless or living in a fdc (including now)? No 05/21/2025 [facility] Utilities Answer Date Recorded In the past [...] drink first t july in the morning (EYE-BUSINESS TRAINER) to steady your nerves or to get [...] encounter Miscellaneous Notes * Progress Notes - Robert Binta - 05/21/2025 2:55 PM EST Pop Health Enrollment 05/21/2025 Pop [facility] Program: [x] LINK [] [facility] Primary Facility: [x] [facility] [] [facility] [x] Spoke with care team [x] Spoke with patient/caregiver [] PCP [x] Outside PCP - [facility] [x] Confirmed/Updated Patient's Contact Information, Voicemail, Preferred Method SDOH Needs/Assessment [] Transportation [] Food [] Housing [] Utility [x] Medication [x] Health Education [] Insurance [] Legal [] Unable to assess Discussion Summary: Population Health SW met with pt bedside for introductions and review of the [employer] programs. Ptagreed to LINK enrollment and reports his discharge date/plan are currently unknown and he anticipates remaining inpatient another few days. SW agreed to monitor and f/u bedside with pt once confirmed to schedule LINK nurse home visit and [facility] appt. Pt verified contact info and PCP; verbalized understanding of benefits of LAMAR appt. Pt expressed concern for one of his teeth and reports he [facility] and needs medical clearance before they can do an extraction; SW encouragedpt to speak with his care team about providing medical clearance, pt agreed. [facility] SW provided c nikkie for f/u questions. Discharge Disposition [] Sub-Acute Rehab [x] Home [] Other: Binta Jones, ANUEL, INFORMATICS PHYSICIAN LIAISON Population Health Navigator [email or web address] documented in this encounter Plan of Treatment Upcoming Encounters Date Type Department Care Team (Late st Contact Info) Description 07/05/2025 3:00 PM EST Clinical Support [facility] Hematology/BMT and Cellular Therapy Program [address] [place] [phone] 07/05/2025 3:30 PM EST Office Visit [facility] Therapy [facility] [address] [place] [phone] Vaishnavi Almaraz MD [address] [facility] [address] [place] [phone] 09/13/2025 10:30 AM EDT Clinical Support [facility] Therapy [facility] [address] [place] [phone] 09/13/2025 11:00 AM EDT Office Visit [facility] Cellular Therapy Program [address] [place] [address] [place] [address] Vaishnavi Almaraz MD [address] [facility] 1st [place] [phone] documented as of this encounter Visit Diagnoses [...] documented as of this encounter Care Teams Entry Level Electrical Engineer Relationship Specialty Start Date End Date Debbie Medina MD [address] [facility] [address] [place] [address] PCP - General 09/28/24 Lee Collier MD [address] [place] [phone] Internal Medicine 10/18/23 Kristopher Benitez RN None None Registered Nurse Hematology and Oncology 03/15/25 documented as of this encounter
--- OUTSIDE RECORDS SUMMARY | 2025-06-26 10:27 | XMS_ITS | Encounter Summary ---
Author Organization [employer] ([place], [place], [place], [place], [place]) Address [address] [place] [address] Care Team Providers Care Anthropology Professor Name Role Phone Unavailable Primary Care Provider Unavailabl e Encounter Details Date Type Department Care Team (Late st Contact Info) Description 06/13/2020 Transcribed Document [facility] [place] [facility] [place] [address] ProviderJeremiah MD [address] [place], [place] [phone] Social History Tobacco Use Types Packs/Day Years Used Date Smoking Tobacco: Never Assessed Sex and Gender Information Value Date Recorded Sex Assigned at Male 12/26/2021 7:43 PM CDT Legal Sex Male 7:43 PM CDT Gender Identity Male 12/26/2021 7:43 PM CDT Sexual Orientation Not on file documented as of this encounter Miscellaneous Notes * Cerner Conversion Note - Jeremiah Dover MD - 06/13/2020 2:17 PM RADIOISOTOPE PRODUCTION OPERATOR DATE OF ADMISSION: 06/13/2020 HISTORY OF PRESENT ILLNESS: This is a 70-year-old male with a chief complaint of chronic lower back pain as well as chronic bilateral knee pain for several years' duration who is seen today for a followup visit. The patient is following up today for medication refills. He reports that he is having more pain in his left shoulder. He says that he feels like it is probably arthritis, but he is having trouble picking up things. He says he has a numbness sensation and points to the biceps area. He says that he is unable to lift more than about 10 pounds with his arm now. He describes his pain as moderate to moderately severe. He says that it is a numbness, aching. He says that the bilateral knees as an aching sensation and the left shoulder has some numbness. He says that his low back pain is an aching sensation. He denies radiating pain to the lower extremities. He says that he uses heat as well as walking every day and taking his medicine to help with his pain. The patient is using his Roslyn 4 times daily as needed and taking his gabapentin 4 times daily. He says that he tolerates his medication well and does not have any adverse effects including toxic effect, sedation, driving problems, or GI problems. REVIEW OF SYSTEMS: Constitutional, respiratory, cardiovascular, ophthalmology, gastrointestinal, genitourinary, ENT, musculoskeletal, integumentary, neurology, psychiatry, endocrine, hematology were not changed from his last visit on May 16, 2020. PHYSICAL EXAMINATION: VITAL SIGNS: Blood pressure 167/79, heart rate 69, respiratory rate 16, O2 saturation 93%, temperature 97.7. Pain level 7. Hours of sleep varied. No change in physical and neurological exam. [...] Long-term opioid use. 6. Long-term use of gabapentin. 7. Chronic bilateral knee pain secondary to degenerative joint disease. PLAN: 1. I have had a lengthy discussion with the patient in regard to shoulder pain. I have advised him we can send him for an x-ray. He has declined that at this time. He says he will wait to see if it improves over the next time until the next office visit. 2. The patient has been fairly well [...] with alcohol, or self-escalate it. 3. Continue Roslyn 5/325 mg 4 times daily as needed. 4. Continue gabapentin 800 mg 4 times daily. 5. I have encouraged the patient to continue a healthy diet and home exercise program. 6. We are going to see the patient back in 2 months to re-evaluate. 7. The assessment and plan for today's visit has been reviewed by Dr. Lazo, however, I have prescribed the medications for this patient's treatment plan today. 8. I have educated the patient to use non-pharmacologic measures to alleviate pain prior to using as needed opioid medication such as heat, ice, rest, relaxation, repositioning, exercise, stretches, TENS unit and/or massage. 9. The patient has been screened for symptoms or risk factors related to COVID-19 both prior to arrival for the visit and upon arrival at the clinic for the visit today. No risk factors or symptoms are identified at today's visit and the patient has been afebrile. /[id number] CHRISTA Calvert/AQ / JULIANA / MODL CC: Mayco Moreno documented in this encounter Plan of Treatment Not on file documented as of this encounter Visit Diagnoses Not on filedocumented in this encounter
--- OUTSIDE RECORDS SUMMARY | 2025-06-26 10:27 | XMS_ITS | Encounter Summary ---
Author Organization Healthcare Address [address] [place] [address] Care Team Providers Care Check Writer Name Role Phone Lee Collier MD Unavailable [phone] Debbie Medina MD Primary Care Provider + [phone] Kristopher Benitez RN Unavailable Unavailable Encounter Details Date Type Department Care Team (Latest Contact Info) Description 05/21/2025 Travel Social History Tobacco Use Types Packs/Day [...] Never 10/16/2022 How often do you attend [facility] or lutheran services? More than 4 times per year 10/16/2022 Do you belong to any clubs o r organizations such as mormonism groups, unions, fraternal or athletic groups, or [...] any time in the past 12 m [facility], were you homeless or living in a fci (including now)? No 05/21/2025 [facility] Utilities Answer Date Recorded In the past 12 months has [facility] [place], gas, oil, or water company threatened to [...] drink first t july in the morning (EYE-FERRY HAND) to steady your nerves or to get [...] Upcoming Encounters Date Type Department Care Team ([facility] st Contact Info) Description 07/05/2025 3:00 PM EST Clinical Support [facility]/B[facility] Cellular Therapy Program [address] [place] [phone] 07/05/2025 3:30 PM EST Office Visit [facility] Cellular Therapy [facility] [address] [phone] Vaishnavi Almaraz MD [address] [facility] [address] [place] [phone] 09/13/2025 10:30 AM EDT Clinical Support [facility] Cellular Therapy [facility] [address] [place] [phone] 09/13/2025 11:00 AM EDT Office Visit [facility] Cellular Therapy Program [address] [place] [phone] Vaishnavi Almaraz MD [address] [facility] [address] [place] [phone] documented as of this encounter Visit Diagnoses [...] documented as of this encounter Care Teams Check Writer Relationship Specialty Start Date End Date Debbie Medina MD [address] [facility] [address] [place] [address] PCP - General 09/28/24 Lee Collier MD [address] [place] [phone] Internal Medicine 10/18/23 Kristopher Benitez, RN None None Registered Nurse Hematology and Oncology 03/15/25 documented as of this encounter
--- OUTSIDE RECORDS SUMMARY | 2025-06-26 10:27 | XMS_ITS | Encounter Summary ---
Author Organization [employer] ([place], [place], [place], [place], [place]) Address [address] [place] [address] Care Team Providers Care Telegraph Repeater Technician Name Role Phone Unavailable Primary Care Provider Unavailabl e Encounter Details Date Type Department Care Team (Late st Contact Info) Description 09/28/2019 Transcribed Document [facility] [place] [facility] [place] [address] ProviderJeremiah MD [address] [place], [place] [phone] Social History Tobacco Use Types Packs/Day Years Used Date Smoking Tobacco: Never Assessed Sex and Gender Information Value Date Recorded Sex Assigned at Male 12/26/2021 7:43 PM CDT Legal Sex Male 7:43 PM CDT Gender Identity Male 12/26/2021 7:43 PM CDT Sexual Orientation Not on file documented as of this encounter Miscellaneous Notes * Cerner Conversion Note - Jeremiah Dover MD - 09/28/2019 11:07 AM CDT DATE OF ADMISSION: 09/28/2019 HISTORY OF PRESENT ILLNESS: This is a 69-year-old male with a chief complaint of chronic lower back pain as well as chronic bilateral knee pain for several years' duration, who is here today for a followup visit. The patient is following up for medication refills of his Bac[place]on and his gabapentin. He reports that he continues to have pain in the low back. He says the pain is moderate to moderately severe at times. He says he does get good relief from his medication. He reports that the pain is at his baseline. He says the bilateral knees and lower back continue to ache. He says that the pain is an aching, throbbing sensation. He does walk daily in addition to taking his medication as prescribed. The patient is using Baconton 4 times daily as needed and gabapentin 4 times daily. He reports that without the medication, he would not be able to walk and do the things that he needs to do inside and outside the home. He denies any adverse effects from his medicine including toxic effect, sedation, driving problems, or GI problems. REVIEW OF SYSTEMS: Constitutional, respiratory, cardiovascular, ophthalmology, gastrointestinal, genitourinary, ENT, musculoskeletal, integumentary, neurology, psychiatry, endocrine, hematology were unchanged from his last visit on August 31, 2019. PHYSICAL EXAMINATION: VITAL SIGNS: Blood pressure 173/81, weight 220, height 70 inches, heart rate 72, respiratory rate 16, O2 saturation 97%, temperature 96.9. Pain level, 7. Hours of sleep, 5. [...] with alcohol, or self-escalate it. 2. Continue Baconton 5/325 mg 4 times daily as needed. [...] medications for this patient's treatment plan today. /[id number] Iqra Casey APRN JULIANA/AQ / JULIANA / MODL CC: Mayco Moreno MD Electronically signed by Mango, [facility] Conversion Social Human Services Assistants Cerner at 10/15/2022 5:48 PM CDT documented in this encounter Plan of Treatment Not on file documented as of this encounter Visit Diagnoses Not on filedocumented in this encounter
--- OUTSIDE RECORDS SUMMARY | 2025-06-26 10:27 | XMS_ITS | Encounter Summary ---
Author Organization [employer] ([place], [place], [place], [place], [place]) Address [address] [place] [address] Care Team Providers Care Cardiac Monitor Name Role Phone Unavailable Primary Care Provider Unavailabl e Encounter Details Date Type Department Care Team (Late st Contact Info) Description 11/13/2018 Transcribed Document [facility] [place] [facility] [place] [address] ProviderJeremiah MD [address] [place] [phone] Social History Tobacco Use Types Packs/Day Years Used Date Smoking Tobacco: Never Assessed Sex and Gender Information Value Date Recorded Sex Assigned at Male 12/26/2021 7:43 PM CDT Legal Sex Male 7:43 PM CDT Gender Identity Male 12/26/2021 7:43 PM CDT Sexual Orientation Not on file documented as of this encounter Miscellaneous Notes * Cerner Conversion Note - Jeremiah Dover MD - 11/13/2018 9:47 AM CDT DATE OF ADMISSION: 11/13/2018 HISTORY OF PRESENT ILLNESS: This is a 68-year-old male with a chief complaint of chronic lower back pain for several years' duration. The patient presents today for a followup along with medication management. The patient is complaining today of low back pain. He states he is also having bilateral knee pain and right arm pain. The patient describes his pain as burning, stabbing, aching, and throbbing. The patient states he does use heat on his lower back and states that helps some. The patient states he is doing good today. The patient denies any changes in his medical condition or medications since his last office visit. The patient does continue to take Buckner 5/325 mg 3 times a day as needed for pain. He states that it is providing him with good relief. The patient does continue to take gabapentin 800 mg 4 times a day. The patient states that it does provide him with some additional relief. The patient denies any side effects with his medications to include toxic effect, excess sedation, driving problems, or GI problems. The patient's SCOTT was reviewed and found to be appropriate at today's office visit. Of note, the patient states he has been taking his blood pressure at home and it has been running high. I did encourage him to follow back up with his primary care provider as that is who manages his blood pressure medications. REVIEW OF SYSTEMS: Constitutional, Respiratory, Cardiovascular, Ophthalmology, Gastrointestinal, Genitourinary, ENT, Musculoskeletal, Integumentary, Neurology, Psychiatry, Endocrine, and Hematology were not changed from October 07, 2018. PHYSICAL EXAMINATION: VITAL SIGNS: Blood pressure 160/77, weight 220 pounds, height 5 feet 9 inches, heart rate 64, respiratory rate 16, O2 saturation 96% on room air, temperature 96.7, hours of sleep 5, and pain 7/10 to 8/10. No change in physical and neurological exam. Muscle tone and power, sensory, and deep tendon reflexes were unchanged. The nurse notes, vital signs, and medication were reviewed and evaluated. No sign of impairment or toxicity to medicine. The patient's psych evaluation, urine drug screen, and SCOTT were appropriate for taking opioid medication. ASSESSMENT: 1. Chronic lower back pain secondary to degenerative joint disease and degenerative disk disease of the lumbosacral spine. 2. Lumbosacral radiculopathy. 3. Lumbosacral spondylosis. 4. Chronic bilateral knee pain secondary to degenerative joint disease and osteoarthritis. 5. Long-term opioid use. 6. Obesity. PLAN: 1. The patient has been fairly well controlled on current medication. The patient has a good compliance with pain clinic regulation in regard to urine drug screen, SCOTT, and Psych evaluation. We spent more than half of the time discussing the risks and benefits of the medication, how to keep it in a safe place, not to share it with other people, not to mix it with alcohol, or self-escalate it. 2. Refill hydrocodone 5/325 mg 3 times a day as needed for pain. 3. Refill gabapentin 800 mg 4 times a day. 4. I have encouraged the patient to do home exercises to include walking, stretching, and range of motion exercises. 5. The patient is going to follow up in one month for re-evaluation and medication management. 6. The patient is going to get urine drug screen today to ensure compliance with his opioid therapy. The assessment and plan for today's visit was reviewed by Dr. Lazo. However, I have prescribed all medications for this patient's treatment plan. Dictated By: Ximena Gold APRN For Karthik Lazo M.D., SHUN Pain Certified Karthik Lazo M.D., SHUN Pain Certified Dict: 11/13/2018 09:47:28 Trans: 11/13/2018 13:36:47 CC1: Karthik Lazo M.D., SHUN Pain Certified CC2: Mayco Moreno MD Electronically signed by Mango [facility] Conversion Manager User Interface Cerner at 10/15/2022 6:11 PM CDT documented in this encounter Plan of Treatment Not on file documented as of this encounter Visit Diagnoses Not on filedocumented in this encounter
--- OUTSIDE RECORDS SUMMARY | 2025-06-26 10:27 | XMS_ITS | Encounter Summary ---
Author Organization [employer] ([place], [place], [place], [place], [place]) Address [address] [place] [address] Care Team Providers Care Service Coordinator Elderly Facility Name Role Phone Unavailable Primary Care Provider Unavailabl e Encounter Details Date Type Department Care Team (Late st Contact Info) Description 02/06/2019 Transcribed Document [facility] [place] [address] ProviderJeremiah MD [address] [place] [phone] Social History Tobacco Use Types Packs/Day Years Used Date Smoking Tobacco: Never Assessed Sex and Gender Information Value Date Recorded Sex Assigned at Male 12/26/2021 7:43 PM CDT Legal Sex Male 7:43 PM CDT Gender Identity Male 12/26/2021 7:43 PM CDT Sexual Orientation Not on file documented as of this encounter Miscellaneous Notes * Cerner Conversion Note - Jeremiah Dover MD - 02/06/2019 7:58 PM CDT DATE OF ADMISSION: 02/06/2019 HISTORY OF PRESENT ILLNESS: This is a 69-year-old male with a chief complaint of chronic lower back pain for several years' duration, who is here today for a followup visit. The patient is following up for medication refills today. The patient reports that he continues to have pain across the low back that is on the right greater than the left. The patient says he also does have daily knee pain. The patient says that he does walk some times to help with his pain, but the pain is an aching and grinding sensation. The patient says that he also uses heat to help him with his pain management. The patient is taking as well Commerce 5/325 mg 3 times daily as needed and gabapentin 800 mg 4 times daily. The patient denies any adverse effects from those medications including toxic effect, sedation, driving problems, or GI problems. REVIEW OF SYSTEMS: Constitutional, Respiratory, Cardiovascular, Ophthalmology, Gastrointestinal, Genitourinary, ENT, Musculoskeletal, Integumentary, Neurology, Psychiatry, Endocrine, Hematology were not changed from his last visit on January 09, 2019. PHYSICAL EXAMINATION: Blood pressure 166/79, weight 225, height 69 inches, heart rate 69, respiratory rate 16, O2 sat 96%, temperature 97.1. Pain level 8. Hours of [...] knee pain secondary to degenerative joint disease. 5. Long-term [...] with alcohol, or self-escalate it. 2. Continue gabapentin 800 mg 4 times daily. 3. Continue Commerce 5/325 mg 3 times daily as needed. 4. I have encouraged the patient to continue home exercise program as well as continuing nonpharmacologic measures for pain relief including heat, ice, exercise, range of motion, and a TENS unit. 5. I have encouraged the patient to engage in healthy diet. 6. We are going to see the patient back on a monthly basis to re-evaluate. 7. The assessment and plan for today's visit has been reviewed by Dr. Lazo. Medications have been prescribed by myself. Dictated By: Iqra Casey APRN For Karthik Laoz M.D., SHUN Pain Certified Karthik Lazo M.D., SHUN Pain Certified Dict: 02/06/2019 19:58:26 Trans: 02/06/2019 20:55:56 CC1: Karthik Lazo M.D., SHUN Pain Certified CC2: Mayco Moreno MD Electronically signed by [facility], [facility] Conversion Burner Machine Operator Cerner at 10/15/2022 5:49 PM CDT documented in this encounter Plan of Treatment Not on file documented as of this encounter Visit Diagnoses Not on filedocumented in this encounter
--- OUTSIDE RECORDS SUMMARY | 2025-06-26 10:27 | XMS_ITS | Encounter Summary ---
Author Organization [employer] ([place], [place], [place], [place], [place]) Address [address] [place] [address] Care Team Providers Care Coil Former Name Role Phone Unavailable Primary Care Provider Unavailabl e Encounter Details Date Type Department Care Team (Late st Contact Info) Description 12/10/2018 Transcribed Document [facility] [place] [facility] [address] ProviderJeremiah MD [address] [place] [address] [phone] Social History Tobacco Use Types Packs/Day Years Used Date Smoking Tobacco: Never Assessed Sex and Gender Information Value Date Recorded Sex Assigned at Male 12/26/2021 7:43 PM CDT Legal Sex Male 7:43 PM CDT Gender Identity Male 12/26/2021 7:43 PM CDT Sexual Orientation Not on file documented as of this encounter Miscellaneous Notes * Cerner Conversion Note - Jeremiah Dover MD - 12/10/2018 1:32 PM CDT DATE OF ADMISSION: 12/10/2018 HISTORY OF PRESENT ILLNESS: This is a 68-year-old male with a chief complaint of chronic lower back pain for several years' duration, who is here today for followup visit. The patient reports today that he continues to have low back pain as well as pain in the bilateral knees and his right arm. The patient reports his pain as a burning, stabbing, spasm, aching, throbbing sensation. The patient mentions that he does use heat at home in addition to his medication to help him with his pain. The patient continues to take [place] 5/325 mg 3 times daily as well as gabapentin 800 mg 4 times daily. The patient reports that he uses the medication exactly as directed and that the use of the medication makes him more functional and able to do the things that he needs to do. The patient denies any adverse effects from that medication including toxic effects, sedation, driving problems, or GI problems. The patient mentions that he does keep the medications safe and secure at home and does not have any problem with that. REVIEW OF SYSTEMS: Constitutional, Respiratory, Cardiovascular, Ophthalmology, Gastrointestinal, Genitourinary, ENT, Musculoskeletal, Integumentary, Neurology, Psychiatry, Endocrine, Hematology were not changed from his last visit on November 13, 2018. PHYSICAL EXAMINATION: Blood pressure 172/88, recheck at 168/79, weight 225, height 69 inches, heart rate 58, respiratory rate 16, O2 sat 95%, temperature 96.6. Pain level 7 to 8. Hours of sleep 5. No change in physical and neurological exam. Muscle tone power sensory and deep tendon reflexes were unchanged. The nurse notes, vital signs, and medication were reviewed and evaluated. No sign of impairment or toxicity to medicine. The patient psych evaluation, urine drug screen, and SCOTT were appropriate for taking opioid medication., ASSESSMENT: 1. Chronic lower back pain secondary to degenerative joint disease and degenerative disk disease to the lumbosacral spine. 2. Lumbosacral radiculopathy. 3. Lumbosacral spondylosis. 4. Chronic bilateral knee pain secondary to degenerative joint disease and osteoarthritis. 5. Long-term opioid use. 6. Long-term use of high-risk medication. 7. Obesity. PLAN: 1. I have had a lengthy discussion with the patient today in regards to his blood pressure. I have made the patient aware that his blood pressure is elevated today and that he would need to contact his primary care physician; however, the patient mentions that he has not been to his primary care physician, Dr. Mayco Moreno many years and has not seen him. The patient mentions that he has not had issues with blood pressure in the past and that when he checks his blood pressure at home, the systolic runs in the 130s and 140s. The patient mentions he has had an occasional reading in the 160s, but not often. The patient mentions that he is willing to see his primary care physician, Dr. Mayco Moreno in regards to this; however, when the friction paint machine tender [facility], he is no longer a current patient there, so the patient will need to secure a different primary care physician; however, I have encouraged him today to continue checking his blood pressure at home and to report that or seek assistance if his blood pressure is elevated. 2. I have reviewed the patient's last urine drug screening with him noted from November 13, 2018 and it is consistent with his current medications. 3. The patient has been fairly well [...] mix with alcohol, or self-escalate it. 4. Continue Dul[place] 5/325 mg 3 times daily. 5. Continue gabapentin 800 mg 4 times daily. 6. I have encouraged the patient to continue a home exercise program including walking and stretching. 7. We are going to see the patient back after one month to re-evaluate. 8. The assessment and plan for today's visit has been reviewed by Dr. Lazo; however, medications for this patient's treatment plan have been prescribed by myself today. Dictated By: Iqra Casey APRN For Karthik Lazo M.D., SHUN Pain Certified Karthik Lazo M.D., SHUN Pain Certified Dict: 12/10/2018 13:32:19 Trans: 12/10/2018 18:30:24 CC1: Karthik Lazo M.D., SHUN Pain Certified CC2: Mayco Moreno MD Electronically signed by [facility] Conversion Mill Labor Supervisor Cerner at 10/15/2022 5:59 PM CDT documented in this encounter Plan of Treatment Not on file documented as of this encounter Visit Diagnoses Not on filedocumented in this encounter
--- OUTSIDE RECORDS SUMMARY | 2025-06-26 10:27 | XMS_ITS | Encounter Summary ---
Author Organization Healthcare Address [address] [place] [address] Care Team Providers Care Newsagent Name Role Phone Lee Collier MD Unavailable [phone] Debbie Medina MD Primary Care Provider + [phone] Kristopher Benitez RN Unavailable Unavailable Encounter Details Date Type Department Care Team (Late st Contact Info) Description 05/10/2025 Abstract Leticiaazthomas director of sales and marketing [facility] [address] [place] [address] [address] [place] [address] Don, DEANNA Judd None None Social History Tobacco Use Types [...] often do you attend chur ch or baptism services? More than 4 times per year 10/16/2022 Do you belong to any clubs o r organizations such as mandaen groups, unions, fraternal or athletic groups, or [...] time in the past 12 m [facility], were you homeless or living in a assisted (including now)? No 01/19/2025 CAGE ASSESSMENT Answer [...] drink first t july in the morning (EYE-TELESALES SPECIALIST) to steady your nerves or to [...] Upcoming Encounters Date Type Department Care Team ([facility] Contact Info) Description 07/05/2025 3:00 PM EST Clinical Support [facility] [address] [place] [phone] 07/05/2025 3:30 PM EST Office Visit [facility] [address] [place] [address] Vaishnavi Almaraz MD [address] [facility] [address] [place] [phone] 09/13/2025 10:30 AM EDT Clinical Support [facility] [address] [place] [phone] 09/13/2025 11:00 AM EDT Office Visit [facility] [address] [place] [phone] Vaishnavi Almaraz MD [address] [facility] [address] [place] [phone] documented as of this encounter Visit [...] documented as of this encounter Care Teams Newsagent Relationship Specialty Start Date End Date Debbie Medina MD [address] [facility] [address] [place] [address] PCP - General 09/28/24 Lee Collier MD [address] [place] [phone] Internal Medicine 10/18/23 Kristopher Benitez, RN None None Registered Nurse Hematology and Oncology 03/15/25 documented as of this encounter
--- OUTSIDE RECORDS SUMMARY | 2025-06-26 10:27 | XMS_ITS | Encounter Summary ---
Author Organization [employer] ([place], [place], [place], [place], [place]) Address [address] [place] [address] Care Team Providers Care Electrical Maintenance Man Name Role Phone Unavailable Primary Care Provider Unavailabl e Encounter Details Date Type Department Care Team (Late st Contact Info) Description 11/27/2019 Transcribed Document [facility] [place] [address] ProviderJeremiah MD [address] [place], [place] [phone] Social History Tobacco Use Types Packs/Day Years Used Date Smoking Tobacco: Never Assessed Sex and Gender Information Value Date Recorded Sex Assigned at Male 12/26/2021 7:43 PM CDT Legal Sex Male 7:43 PM CDT Gender Identity Male 12/26/2021 7:43 PM CDT Sexual Orientation Not on file documented as of this encounter Miscellaneous Notes * Cerner Conversion Note - Jeremiah Dover MD - 11/27/2019 10:24 AM CDT DATE OF ADMISSION: 11/27/2019 HISTORY OF PRESENT ILLNESS: This is a 69-year-old male with a chief complaint of chronic lower back pain as well as chronic bilateral knee pain for several years' duration, who is seen today for a followup visit. The patient is following up today for medication refills. He reports he continues to have low back pain as well as bilateral knee pain. The patient says the pain is an aching, throbbing sensation that is moderate. He says that the pain does have associated insomnia. He reports that he uses heat and cold in addition to walking every day as well as taking his [place] 4 times daily as needed and his gabapentin 4 times daily. The patient reports that the use of the medication makes him more functional. He denies any adverse effects including toxic effect, sedation, driving problems, or GI problems. REVIEW OF SYSTEMS: Constitutional, respiratory, cardiovascular, ophthalmology, gastrointestinal, genitourinary, ENT, musculoskeletal, integumentary, neurology, psychiatry, endocrine, hematology were not changed from his last visit, October 26, 2019. PHYSICAL EXAMINATION: VITAL SIGNS: Blood pressure 155/72, weight 225, height 69 inches, heart rate 72, respiratory rate 16, O2 saturation 95%, temperature 96.6. Pain level 7. Hours of [...] 4. Chronic bilateral knee pain, secondary to osteoarthritis and degenerative joint disease. [...] stretches, TENS unit and/or massage. 4. Continue [place] 5/325 mg four times daily as needed. 5. Continue gabapentin 800 mg four times daily. 6. We are going to see the patient back in 1 month to re-evaluate. 7. The assessment and plan for today's visit have been reviewed by Dr. Lazo, however, I have prescribed the medications for this patient's treatment plan today. /[id number] CHRISTA Calvert/EDMAR / JULIANA / MODL CC: Mayco Moreno MD Electronically signed by [facility] Conversion Youth Development Professional Cerner at 10/15/2022 6:08 PM CDT documented in this encounter Plan of Treatment Not on file documented as of this encounter Visit Diagnoses Not on filedocumented in this encounter
--- OUTSIDE RECORDS SUMMARY | 2025-06-26 10:27 | XMS_ITS | Encounter Summary ---
Author Organization Healthcare Address [address] [place] [address] Care Team Providers Care Wing Commander Name Role Phone Lee Collier MD Unavailable [phone] Debbie Medina MD Primary Care Provider [phone] Kristopher Benitez RN Unavailable Unavailable Encounter Details Date Type Department Care Team (Latest Contact Info) Description 05/20/2025 Travel Social History Tobacco Use Types Packs/Day [...] Never 10/16/2022 How often do you attend [facility] or hoahaoism services? More than 4 times per year 10/16/2022 Do you belong to any clubs o r organizations such as scientology groups, unions, fraternal or athletic groups, or [...] any time in the [facility], were you homeless or living in a longterm (including now)? No 05/21/2025 [facility] Utilities Answer Date Recorded In the past 12 months has [facility] [employer] of [employer], gas, oil, or water company threatened to [...] drink first t july in the morning (EYE-GIN INSPECTOR) to steady your nerves or to get [...] Assessment Author Have you been in contact with someone who was sick? No / Unsure 05/20/2025 11:02 AM Zachary Forbes RN Do you have any of the following new or worsening symptoms? Abdominal pain 05/20/2025 11:02 AM Ligia Forbes RN * Travel Screening Question Answer Date of Assessment Author Have you traveled internatio raul or domestically in the last month? No 05/20/2025 11:02 AM Ligia Desai RN documented as of this encounter Mental Status * Communicable Disease Screening Question Answer Entry Date Author Have you been in contact with someone who was sick? No / Unsure 05/20/2025 11:02 AM Zachary Forbes RN Do you have any of the following new or worsening symptoms? Abdominal pain 05/20/2025 11:02 AM Ligia Forbes RN * Travel Screening Question Answer Entry Date Author Have you traveled internatio raul or domestically in the last month? No 05/20/2025 11:02 AM Ligia Desai RN documented in this encounter Plan of Treatment Upcoming Encounters Date Type Department Care Team ([facility] st Contact Info) Description 07/05/2025 3:00 PM EST Clinical Support [facility] [address] [place] [phone] 07/05/2025 3:30 PM EST Office Visit [facility] [address] [place] [phone] Vaishnavi Almaraz MD [address] [facility] [address] [place] [phone] 09/13/2025 10:30 AM EDT Clinical Support [facility] [address] [place] [phone] 09/13/2025 11:00 AM EDT Office Visit [facility] [address] [place] [phone] Vaishnavi Almaraz MD [address] [facility] [address] [place] [phone] documented as of this encounter Visit Diagnoses [...] documented as of this encounter Care Teams Wing Commander Relationship Specialty Start Date End Date Debbie Medina MD [address] [facility] [address] [place] [address] PCP - General 09/28/24 Lee Collier MD [address] [place] [address] Internal Medicine 10/18/23 Kristopher Benitez, RN None None Registered Nurse Hematology and Oncology 03/15/25 documented as of this encounter
--- OUTSIDE RECORDS SUMMARY | 2025-06-26 10:27 | XMS_ITS | Encounter Summary ---
Author Organization [employer] ([place], [place], [place], [place], [place]) Address [address] [place] [address] Care Team Providers Care Buffer Copper Name Role Phone Unavailable Primary Care Provider Unavailabl e Encounter Details Date Type Department Care Team (Late st Contact Info) Description 04/15/2020 Transcribed Document [facility] [place] [facility] [place] [address] ProviderJeremiah MD [address] [place], [place] [phone] Social History Tobacco Use Types Packs/Day Years Used Date Smoking Tobacco: Never Assessed Sex and Gender Information Value Date Recorded Sex Assigned at Male 12/26/2021 7:43 PM CDT Legal Sex Male 7:43 PM CDT Gender Identity Male 12/26/2021 7:43 PM CDT Sexual Orientation Not on file documented as of this encounter Miscellaneous Notes * Cerner Conversion Note - Jeremiah Dover MD - 04/15/2020 12:28 PM CDT DATE OF ADMISSION: 04/15/2020 HISTORY OF PRESENT ILLNESS: This is a 70-year-old male with a chief complaint of chronic lower back pain as well as chronic bilateral knee pain for several years' duration, who is seen today for a followup visit. The patient is following up today for medication refills. He reports that he is taking his hydrocodone four times daily as needed and his gabapentin twice daily. The patient says that he continues to have low back pain as well as bilateral knee pain that is moderate. He reports it as an aching sensation. He also uses heat in addition to his medication. He says overall he gets about 60% relief from his medicine for several hours each dose. The patient says that he tolerates his medication well. He denies any adverse effects including toxic effect, sedation, driving problems, or GI problems. The patient says that he also does walk on a daily basis to help with his pain. He says that helped him so much. He reports the pain is worse in the morning than in the afternoon. The patient denies adverse effects including toxic effect, sedation, driving problems, or GI problems. He says he takes his medication exactly as prescribed and that it does help him to do more things inside and outside the home. REVIEW OF SYSTEMS: Constitutional, respiratory, cardiovascular, ophthalmology, gastrointestinal, genitourinary, ENT, musculoskeletal, integumentary, neurology, psychiatry, endocrine, hematology were not changed from his last visit on March 18, 2020. PHYSICAL EXAMINATION: VITAL SIGNS: Blood pressure 160/77, heart rate 72, respiratory rate 16, O2 saturation 94%, temperature 97.8. Pain level 7, hours of sleep 5. No change [...] disk disease of lumbosacral spine. 2. Lumbosacral spondylosis. 3. Chronic bilateral knee pain secondary to osteoarthritis. 4. Long-term opioid use. 5. Long-term use of high-risk medication. 6. Obesity. PLAN: 1. The patient has [...] with alcohol, or self-escalate it. 2. Continue [place] 5/325 mg 4 times daily as needed. 3. I have educated the patient to use non-pharmacologic measures to alleviate pain prior to using as needed opioid medication such as heat, ice, rest, relaxation, repositioning, exercise, stretches, TENS unit and/or massage. 4. Continue gabapentin 800 mg twice daily. 5. I have encouraged the patient [...] visit and the patient has been afebrile. /[id number] Iqra Casey APRN JULIANA/AQ / JULIANA / MODL CC: Mayco Moreno MD Electronically signed by [facility] Conversion Personnel Monitor Cerner at 10/15/2022 5:58 PM CDT documented in this encounter Plan of Treatment Not on file documented as of this encounter Visit Diagnoses Not on filedocumented in this encounter
--- OUTSIDE RECORDS SUMMARY | 2025-06-26 10:27 | XMS_ITS | Encounter Summary ---
Author Organization [employer] ([place], [place], [place], [place], [place]) Address [address] [place] [address] Care Team Providers Care Low Emission Automobile Designer Name Role Phone Unavailable Primary Care Provider Unavailabl e Encounter Details Date Type Department Care Team (Late st Contact Info) Description 01/22/2020 Transcribed Document [facility] [place] Family Medicine [facility] [place] [address] ProviderJeremiah MD [address] [place] [address] [id number] Social History Tobacco Use Types Packs/Day Years Used Date Smoking Tobacco: Never Assessed Sex and Gender Information Value Date Recorded Sex Assigned at Male 12/26/2021 7:43 PM CDT Legal Sex Male 7:43 PM CDT Gender Identity Male 12/26/2021 7:43 PM CDT Sexual Orientation Not on file documented as of this encounter Miscellaneous Notes * Cerner Conversion Note - Jeremiah Dover MD - 01/22/2020 12:55 PM CDT DATE OF ADMISSION: 01/22/2020 HISTORY OF PRESENT ILLNESS: This is a 70-year-old male with a chief complaint of chronic lower back pain as well as chronic bilateral knee pain for several years' duration, who is seen today for a followup visit. The patient is following up for medication refills. He reports that he continues to have low back pain as well as pain in the bilateral knees. He says that his medications give him good help and relief for about 2 to 3 hours and then the medication wears off. He says that the pain is worse in the morning. He reports the pain is improved with activity. He says that he continues walking every day as well as using heat and cold in addition to taking his gabapentin four times daily and his Katy four times daily as needed. The patient says the use of the medication does make him more functional. He denies any adverse effects including toxic effect, sedation, driving problems, or GI problems. REVIEW OF SYSTEMS: Constitutional, respiratory, cardiovascular, ophthalmology, gastrointestinal, genitourinary, ENT, musculoskeletal, integumentary, neurology, psychiatry, endocrine, hematology were unchanged from his last visit on December 25, 2019. PHYSICAL EXAMINATION: VITAL SIGNS: Blood pressure 191/81, weight 225, height 69 inches, heart rate 69, respiratory rate 16, O2 saturation 95%, temperature 97.1. Pain level 7. Hours of [...] and the patient has been afebrile. 3. Continue gabapentin 800 mg four times daily. 4. Continue Katy 5/325 mg four times daily as needed. 5. I have done a sleep apnea risk assessment with the patient today and no risk factors are identified at this time. 6. I have encouraged the patient to continue a healthy diet and home exercise program. 7. We are going to send the patient for random urine drug screening today. 8. We are going to see the patient back in 1 month to re-evaluate. 9. The assessment and plan for today's visit has been reviewed by Dr. Lazo, however, I have prescribed the medications for this patient's treatment plan today. /[id number] Iqra Amelia Casey APRN JULIANA/AQ / JULIANA / MODL CC: Mayco Moreno MD Electronically signed by [facility], [facility] Conversion Office Workforce Planner Cerner at 10/15/2022 5:56 PM CDT documented in this encounter Plan of Treatment Not on file documented as of this encounter Visit Diagnoses Not on filedocumented in this encounter
--- OUTSIDE RECORDS SUMMARY | 2025-06-26 10:27 | XMS_ITS | Encounter Summary ---
Author Organization Healthcare Address [address] [place] [address] Care Team Providers Care Crozer Operator Name Role Phone Lee Collier MD Unavailable [phone] Debbie Medina MD Primary Care Provider + [phone] Kristopher Benitez RN Unavailable Unavailable Encounter Details Date Type Department Care Team (Late st Contact Info) Description 05/20/2025 Telephone [facility] Interventional Radiology [address] [place] [address] Elvira Rubio RN CH-VASCULAR & INTERVENTIONAL RADIOLOGY None Social History Tobacco Use Types Packs/Day [...] Never 10/16/2022 How often do you attend [facility] or christianity services? More than 4 times [...] were you homeless or living in a custodial (including now)? No 05/21/[address] [facility] Utilities Answer Date Recorded In the [...] drink first t july in the morning (EYE-HAND UPPER AND BOTTOM LACER) to steady your nerves or to get [...] as of this encounter Miscellaneous Notes * Nursing Note - Elvira Rubio RN - 05/20/2025 7:43 AM EST Images from the original note were not included. Vascular & Interventional Radiology Nurse Navigator Note I reached out to the pt per Perez Cardona, who has been attempting to reach and give instructions to present to the ER for treatment of SBP. No answer at primary #. The number listed for daughter is out of order. I was able to reach the 2nd alternate contact, the pt's grandson, who took down my # and said he would have the pt call me back. Addendum: Pt returned call. He reports generalized weakness/fatigue and BLE edema, making it difficult to walk. He denies fever/chills. He states his he has no family close by and no personal options/resources for a ride. I reached out to A GRANT Hoyos to explore options for getting him a ride. SW indicated it is likely possible to get pt a ride today. Will follow. Addendum: Mya Hoyos Rachel A, RN I just placed the referral. It will be an Uber ride and it said it could take up to an hour to get him but it probably won't be that long Previous Messages ----- Message ----- From: Elvira Rubio RN Sent: 05/20/2025 8:46 AM EST To: Mary Cardona APRN; Stanley Aguilar RN; An* Subject: Requesting help with transportation today Good morning Mya, we are trying to get this patient a ride to the ER to be treated for infection. His condition is stable. He says he has no ride or resources, no family lives close. He lives in [place]. Are you able to help us get him a ride please? Addendum: Per GRANT, Uber ride was marked No-Show . Pt not answering phone. Mary Kay returned my calland stated his mother had just spoken to pt and ambulance was at his house preparing to transport him to hospital. documented in this encounter Plan of Treatment Upcoming Encounters Date Type Department Care Team (Late st Contact Info) Description 07/05/2025 3:00 PM EST Clinical Support [facility] Hematology/BMT and Cellular Therapy Program [address] [place] [address] 07/05/2025 3:30 PM EST Office Visit [facility] Hematology/BMT and Cellular Therapy Program [address] [place] [phone] Vaishnavi Almaraz MD [address] [facility] [address] [phone] 09/13/2025 10:30 AM EDT Clinical Support [facility] Hematology/BMT and Cellular Therapy Program [address] [place] [phone] 09/13/2025 11:00 AM EDT Office Visit [facility] Hematology/BMT and Cellular Therapy Program [address] [place] [phone] Vaishnavi Almaraz MD [address] [facility] [address] [phone] documented as of this encounter [...] documented as of this encounter Care Teams Crozer Operator Relationship Specialty Start Date End Date Debbie Medina MD [address] [facility] [address] [place] [address] PCP - General 09/28/24 Lee Collier MD [address] [place] [phone] Internal Medicine 10/18/23 Kristopher Benitez RN None None Registered Nurse Hematology and Oncology 03/15/25 documented as of this encounter
--- OUTSIDE RECORDS SUMMARY | 2025-06-26 10:29 | XMS_ITS | Encounter Summary ---
Author Organization Healthcare Address [address] [place] [address] Care Team Providers Care Category Specialist Name Role Phone Lee Collier MD Unavailable Debbie Medina MD Primary Care Provider + [phone] Kristopher Benitez RN Unavailable Unavailable Bekah Flores RN Unavailable Unavailable Encounter Details Date Type Department Care Team (Latest Contact Info) Description 06/17/2025 Travel Social History Tobacco Use Types Packs/Day [...] Never 10/16/2022 How often do you attend [facility] or sikhism services? More than 4 times per year 10/16/2022 Do you belong to any clubs o r organizations such as jain groups, unions, fraternal or athletic groups, or [...] time in the past 12 m [facility], were you homeless or living in a assisted (including now)? No 06/18/2025 [facility] Utilities Answer Date Recorded In the past 12 months has e [employer], gas, oil, or water company threatened to [...] drink first t july in the morning (EYE-DULSER) to steady your nerves or to get [...] someone who was sick? No / Unsure 06/17/2025 4:28 PM Precious Rivera RN Do you have any of the following new or worsening symptoms? None of these 06/17/2025 4:28 PM Precious Rivera RN * Travel Screening Question Answer Date of Assessment Author Have you traveled internationally or domestically in the last month? No 06/17/2025 4:28 PM Precious Rivera RN documented as of this encounter Mental Status * Communicable Disease Screening Question Answer Entry Date Author Have you been in contact with someone who was sick? No / Unsure 06/17/2025 4:28 PM EST Precious Aguilar RN Do you have any of the following new or worsening symptoms? None of these 06/17/2025 4:28 PM EST Precious Aguilar RN * Travel Screening Question Answer Entry Date Author Have you traveled internationally or domestically in the last month? No 06/17/2025 4:28 PM EST Precious Aguilar RN documented in this encounter Plan of Treatment Upcoming Encounters Date Type Department Care Team ([facility] st Contact Info) Description 07/05/2025 3:00 PM EST Clinical Support [facility] Hematology/BMT and Cellular Therapy Program [address] [place] [phone] 07/05/2025 3:30 PM EST Office Visit [facility] Hematology/BMT and Cellular Therapy Program [address] [place] [phone] Vaishnavi Almaraz MD [address] [facility] [address] [place] [phone] 09/13/2025 10:30 AM EDT Clinical Support [facility] Hematology/BMT and Cellular Therapy Program [address] [place] [phone] 09/13/2025 11:00 AM EDT Office Visit [facility] Hematology/BMT and Cellular Therapy Program [address] [place] [phone] Vaishnavi Almaraz MD [address] [facility] [address] [place] [phone] documented as of this encounter Visit Diagnoses [...] documented as of this encounter Care Teams Category Specialist Relationship Specialty Start Date End Date Debbie Medina MD [address] [facility] [address] [place] [address] PCP - General 09/28/24 Lee Collier MD [address] [place] [address] Internal Medicine 10/18/23 Kristopher Benitez, DEANNA None None Registered Nurse Hematology and Oncology 03/15/25 Bekah Flores, DEANNA None None Registered Nurse 05/25/25 documented as of this encounter
--- OUTSIDE RECORDS SUMMARY | 2025-06-26 10:29 | XMS_ITS ---
Author Organization [facility] Address [address] [place] [address] Care Team Providers Care Sausage Mixer Name Role Phone Lee Collier MD Unavailable [phone] Debbie Medina MD Primary Care Provider + [phone] Kristopher Benitez RN Unavailable Unavailable Bekah Flores RN Unavailable Unavailable High Risk Care Management Status:Active (Active) Program category:Care Coordination Start date:05/25/2025 Enrollment date:06/02/2025 Enrollment reason:Identified using referral data Case Team Name Relationship Phone Bekah Flores RN(Responsible Staff) Registered Nurse Continued Care and Services Coordination
--- OUTSIDE RECORDS SUMMARY | 2025-06-26 10:29 | XMS_ITS | Continuity of Care Document ---
Author Organization [facility] [address] [facility] Address [address] [place] [address] Assessment No assessment recorded. Plan of Treatment Reminders Order Date Submit Date Provider Last Modified By Organization Details Last Modified Time Details Appointments Office Visit15 2025 10:00A M Rosalina Iverson DNP GEOPHYSICAL LABORATORY DIRECTOR Not available Not available Not available Lab None recorded. Referral None recorded. Procedures None recorded. Surgeries None recorded. Imaging None recorded. Medication Orders hydrocodo ne 10 mg-acetam inophen 325 mg tablet 2024 [facility] [id number], [address] [place] [address], [address], [address], 04/15/2025 17:29:41 gabapenti n 800 mg tablet 2024 025 [facility] [id number], [address] [place] [address], [facility] [address] [place], [address], 04/15/2025 17:29:44 hydrocodo ne 10 mg-acetam inophen 325 mg tablet 2024 [facility] [id number], [address] [place] [address], [facility] [address], [address], 04/15/2025 17:29:47 Patient TargetsNo targets recorded. Patient Instructions Encounter Date Encounter Id Patient Instructions Last Modified By Organization Details Last Modified Time 04/15/2025 [id number] 1. continue healthy lifestyles 2. stretching/yoga/w alking as tolerated 3. take pain medications as prescribed 4. call with any concerns [email or web address] Not available 04/15/2025 09:31:04 Patient seen today incident to a physician s previously established diagnosis and plan of care. Follow-up care provided today under the plan of care of: Karthik Lazo MD and supervision of: Marco Barbosa MD. [email or web address] Not available 04/15/2025 09:33:03 Reason for Referral None Reported. 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 63425669 Active 2020 (M47.816) Spondylos is without myelopath y or radiculop athy, lumbar region Not Available [facility] 22:51:19 Lumbosacr al spondylos is without myelopath y 00638568 Active 2020 (M47.817) Spondylos is without myelopath y or radiculop athy, lumbosacr al region Not Available [facility] 2 22:51:19 Degenerat ion of lumbosacr al intervert ebral disc 28188098 Active 2020 (M51.37)O ther intervert ebral disc degenerat ion, lumbosacr al region Not Available [facility] 2 22:51:19 Lumbosacr al radiculop athy 5456150 Active 2020 (M54.17)R adiculopa thy, lumbosacr al region Not Available [facility] 2 22:51:19 Opioid dependenc e 92278685 Active 2020 (F11.20)O pioid dependenc e, uncomplic ated Not Available [facility] 22:51:18 Long-term current use of opiate analgesic drug 19675895824 4108 Active 2020 (z79.891) [facility] (current) use of opiate analgesic Not Available [facility] 2 22:51:19 Pre-surge ry testing Active 2020 (Z01.812) Encounter for preproced ural laborator y examinati on Not Available [facility] 2 22:51:19 Muscle pain 09817047 Active 2020 (M79.1)My algia Not Available [facility] 2 22:51:19 Lumbosacr al spondylos is with radiculop athy 821407497 Active 2020 (M47.27)O ther spondylos is with radiculop athy, lumbosacr al region Not Available [facility] 2 22:51:19 Idiopathi c osteoarth ritis 788336096 Active 2021 (M17.0)Bi lateral primary osteoarth ritis of knee Not Available [facility] 22:51:18 Spasm of back muscles 945029284 Active 2021 Iqra pompa, [facility] 2 09:21:38 Lumbar spondylos is 675434847 Active 2023 Karthik Lazo MD [address] , [place], [address] , [facility] 4 09:59:39 Cancer 534443175 Active 2024 Karthik Lazo MD [address], [place], [address] , [facility] 5 08:46:13 Fibromyos itis 28402615 Active 2024 Karthik Lazo MD [address], [place], [address] , [facility] 5 08:46:25 Problem Notes None recorded. Medical Equipment None Reported. Allergies No known drug allergies Medications Name Sig Start Date Stop Date Status Note LastModified by Organization Details LastModified Time compound drug active Not Available Not Available Not Available Neuropath ic Pain Cream 3 Apply 1-2 grams to the affected ardea 3-4 times daily 2024 active Not Available Not Available Not Avai lable Neuropath ic Pain Cream 3 Apply 1-2 grams to the affected ardea 3-4 times daily 2023 active Not Available Not Available Not Avai lable amoxicill in 500 mg capsule TAKE 1 CAPSULE EVERY 8 HOURS DAILY. active Not Available Not Available No t Available furosemid e 40 mg tablet TAKE 1 TABLET BY MOUTH EVERY DAY active Not Available Not Available No t Available methocarb sergio 500 mg tablet 1 tablet po TID prn 02/27 completed Not Available Not Available Not Available tizanidin e 2 mg tablet Take 1 tab BID 03/12 completed Not Available Not Available Not Available hydrocodo ne 5 mg-acetam inophen 325 mg tablet Take 1 four times a day 06/07 completed Not Available Not Available Not Available famotidin e 40 mg tablet TAKE 1 TABLET BY MOUTH EVERY MORNING active Not Available Not Available No t Available spironola ctone 100 mg tablet active Not Available Not Available No t Available acetamino phen 300 mg-codein e 30 mg tablet TAKE 1 TABLET BY MOUTH EVERY 8 HOURS NEEDED FOR PAIN active Not Available Not Available No t Available ciproflox acin 500 mg tablet active Not Available Not Available No t Available hydrocodo ne 10 mg-acetam inophen 325 mg tablet Take 1 tablet 5 times a day by oral route as needed for 30 days, for pain. 2024 active Not Available Not Available Not Avai lable omeprazol e 40 mg capsule,d elayed release TAKE 1 CAPSULE BY MOUTH EVERY MORNING ABOUT 1/2 HOUR BEFORE BREAKFAS T active Not Available Not Available No t Available nadolol 20 mg tablet active Not Available Not Available Not Available gabapenti n 800 mg tablet TAKE 1 TABLET BY MOUTH FOUR TIMES DAILY 2024 active Not Available Not Available Not Avai lable hydrocodo ne 7.5 mg-acetam inophen 325 mg tablet TAKE 1 TABLET BY MOUTH FOUR TIMES A DAY DIRECTED FOR 30 DAYS active Not Available Not Available No t Available cephalexi n 500 mg capsule TAKE 1 CAPSULE BY MOUTH EVERY 8 HOURS active Not Available Not Available No t Available diclofena c sodium 75 mg tablet,de layed release 1 po bid 08/07 completed unable to tolerate Not Available Not Available Not Available bumetanid e 1 mg tablet TAKE 1 TABLET BY MOUTH EVERY MORNING active Not Available Not Available No t Available mupirocin 2 % topical ointment APPLY TO WOUNDS ON ARMS IN THE MORNING AND THE EVENING X 2 WEEKS active Not Available Not Available No t Available furosemid e 20 mg tablet active Not Available Not Available Not Available ondansetr on 4 mg disintegr ating tablet PLEASE SEE ATTACHED FOR DETAILED DIRECTIO NS active Not Available Not Available No t Available dicyclomi ne 10 mg capsule TAKE 1 CAPSULE BY MOUTH THREE TIMES A DAY NEEDED active Not Available Not Available No t Available Tylenol Extra Strength 500 mg tablet 2 po bid 12/24 completed Not Available Not Available Not Available escitalop roshni 10 mg tablet active Not Available Not Available Not Available ferrous sulfate 324 mg (65 mg iron) tablet,de layed release TAKE 1 TABLET BY MOUTH EVERY MORNING WITH BREAKFAS T. DO NOT CHEW,CRU SH, OR SPLIT active Not Available Not Available No t Available Jakafi 5 mg tablet active Not Available Not Available No t Available naloxone 4 mg/actuat ion nasal spray 02/27 completed Not Available Not Available Not Available Vonjo 100 mg capsule active Not Available Not Available Not Available Ojjaara 200 mg tablet active Not Available Not Available Not Available Vitals Date Recorded Body height Respiratory rate Body mass index (BMI) Body weight Body temperature Heart rate Systolic And Diastolic Provider Name and Address Organization Details Last Updated DateTime 5 175.26 cm 18 /min 27.2 kg/m2 20077 g 96.9 [degF] 91 /min 118/77 mm[Hg] [facility] 5 09:04:51 Social History Question Answer Notes LastModified by Organizat ion Details LastModified Time Tobacco Smoking Status Never Smoker Ronald Molina null, [facility] 12/25/2022 08:05:25 What Is Your Level Of Caffeine Consumption? Moderate 2 SODAS Information not available 12/25/2022 Sex: Unknown Functional Status Question Answer Note LastModified by Organization D etails LastModified Time What is your level of alcohol consumption? None [email or web address] Information not available 12/25/2022 Mental Status None recorded. Family History Nothing Reported. Medical History No medical history recorded. Immunizations Vaccine Type Date Status Note Provider Nam e and Address Organization Details Recorded Time SARS-COV-2 (COVID-19) vaccine, UNSPECIFIED 03/31/2023 completed [facility] 04/01/2023 08:59:09 Past Encounters Encounter ID Performer Location Encounter Start Date Encounter Closed Date Diagnosis/Indication Diagnosis SNOMED-CT Code Diagnosis ICD10 Code Diagnosis IMO Codes Diagnosis Note [id number] Rosalina Iverson DNP GEOPHYSICAL LABORATORY DIRECTOR [address] [place] [address] 04/15/2025 08:45:19 04/15/2025 09:47:03 Lumbosacral spondylosis with radiculopathy 136269058 M47.27 Spasm of back muscles 20 0010735 M62.830 Lumbar spondylosis 32507 0009 M47.896 Global Risk Assessment Score:High Risk.High Risk Assessment : Multiple Opioid Medication Medication Regimen (>2 controlled substances ) High Doses of Opioids to Manage Pain (>30 mg Morphine or equivalent ) Abnormal UDMs (including presence of licit/illi cit meds not prescribed Abnormal PC/DS Abnormal PDMP Physical symptoms suggesting substance abuse-misu se at [facility]'s Behavioral /psycholog ical symptoms suggesting substane abuse-misu se at [facility]'s History of legal or illegal substane use including treatments for abuse or dependence Personal History of alcoholism , illicit drug abuse/dive rsion, ALC abuse/phys ical abuse Moderate Risk Assessment : Multiple Pain or Medical Conditions (i.e., back, head and fibromyalg ia) Multiple Physicians treating patients' conditions History of early refills History of previous pain clinics History of legal or illegal substance use by first degree relatives, including treatments for abuse or dependence History/Di agnosis of Mental Health/Psy chiatric illnesses that may impact the patient's treatment with controlled substances History/Di agnosis of Mental Health/Psy chiatric illnesses that may impact the patient's treatment with controlled substances Non [place] resident Difficulty in contacting the patient ( i.e. multiple residences , multiple phone numbers/no phone, frequent out of town travel/out -of-state work) ORT Score:Risk Score: Date of ORT: . Lab work reviewed:U DS of 02/10/2025 reviewed and is appropriat sanjana CHAVEZ (prescript ion drug monitoring report):As of04/15/25 and is appropriat e Last fill 03/22/2025 Inappropri ate due to: . Lumbosacra l radiculopathy 9810341 M54.17 06342 Health Concerns Section Related Observation LastModified by Organization Detai ls LastModified Time None Recorded Concern Status LastModified by Organization Details LastModified Time None Recorded Payers Encounter Date Sequence Insurance Name Policy Number Policy [place] Covered Member ID Hancock Member ID Guarantor Name 04/15/2025 1 [place] Noe Cottonand [id number] Noe Ilya 04/15/2025 2 [facility] (MEDICAID HMO) [id number] Noe Caraballo [id number] Noe Ilya Notes Date Note Type Note Provider Name and Address Organization Details Recorded Time 5 text/html ROS as noted in the HPI Patient RTC for the management of his chronic lumbar pain with radiculopathy.Patient states his chronic lumbar pain has been worsening over time.Patient states is not able to stand up to take a shower anymore. Quality: throbbing, aching, bone pain, tinglingImproves with the pain medicationAggravating factors: any movements Patient is here for med refills today, reports compliance, states use of medication gives some relief and allows more physical function. Patient reports tolerating the medication well and denies any adverse effects including toxic effects, respiratory sedation, driving problems, or GI problems. Rosalina Ievrson, ROSALINE GEOPHYSICAL LABORATORY DIRECTOR [address] [facility], [place], [address], [facility] 04/19/2025 16:13:40
--- OUTSIDE RECORDS SUMMARY | 2025-06-26 10:29 | XMS_ITS | Encounter Summary ---
Author Organization Healthcare Address [address] [place] [address] Care Team Providers Care Research Instrumentation Technician Name Role Phone Lee Collier MD Unavailable [phone] Debbie Medina MD Primary Care Provider + [phone] Kristopher Benitez RN Unavailable Unavailable Bekah Flores RN Unavailable Unavailable Reason for Referral * Consultation (Routine) - Closed Specialty Diagnoses / Procedures Referred By Contac t Referred To Contact Oral Surgery Diagnoses Caries Periodontitis Lenin Bright, DMD [address] [place] [address] Phone: tel: fax: 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 [facility] [address] [place] [address] [address] [place] [address] Phone: tel: Referral ID Status Reason Start Date Expiration Date V isits Requested Visits Authorized [id number] Closed Specialty Services Required 04/12/2025 10/12/2026 1 1 Encounter Details Date Type Department Care Team (Late st Contact Info) Description 04/12/2025 Community [facility] [address] [place] [address] Lenin Bright DMD [address] [place] [address] Caries (Primary Dx); Periodontitis Social History Tobacco Use Types Packs/Day Years [...] Never 10/16/2022 How often do you attend [facility] or episcopal services? More than 4 times per year 10/16/2022 Do you belong to any clubs o r organizations such as gnosticist groups, unions, fraternal or athletic groups, or [...] any time in the past 12 m [facility], were you homeless or living in a long term (including now)? 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 0 01/19/2025 CAGE Questionnaire Score 0 025 Utilities Answer Date Recorded In the past 12 months has th e onlinetours, Liiiike, oil, or water [employer] threatened to shut off services in your [...] Upcoming Encounters Date Type Department Care Team ([facility] st Contact Info) Description 07/05/2025 3:00 PM EST Clinical Support [facility] [address] [place] [phone] 07/05/2025 3:30 PM EST Office Visit [facility] [address] [place] [phone] Vaishnavi Almaraz MD [address] [facility] [address] [place] [phone] 09/13/2025 10:30 AM EDT Clinical Support [facility] [address] [place] [phone] 09/13/2025 11:00 AM EDT Office Visit [facility] [address] [place] [phone] Vaishnavi Almaraz MD [address] [facility] [address] [place] [phone] Scheduled Referrals Name Type Priority Associated Diagnoses Order Schedule Ambulatory referral to Oral Maxillofacial Surgery Outpatient Referral Routine Caries Periodontitis Expected: 04/12/2025 (Approximate), Expires: 10/11/2026 documented as of this encounter Visit Diagnoses Diagnosis Caries- Primary Periodontitis Chronic periodontitis, unspecified documented in this encounter Additional Health Concerns Assessment Noted Time PHQ-9 Depression Total Score: 8 02/06/20 25 8:29 AM EDT A fall risk assessment has been complete d for the patient 03/15/2025 10:46 AM EDT A Body Mass Index follow-up plan has been documented for the patient 02/05/2025 9:33 AM EDT documented as of this encounter Care Teams Research Instrumentation Technician Relationship Specialty Start Date End Date Debbie Medina MD [address] [facility] [address] [place] [address] PCP - General 09/28/24 Lee Collier MD [address] [place] [phone] Internal Medicine 10/18/23 Kristopher Benitez RN None None Registered Nurse Hematology and Oncology 03/15/25 Bekah Flores RN None None Registered Nurse 05/25/25 documented as of this encounter
--- OUTSIDE RECORDS SUMMARY | 2025-06-26 10:29 | XMS_ITS | Encounter Summary ---
Author Organization [employer] ([place], [place], [place], [place], [place]) Address [address] [place] [address] Care Team Providers Care Radio Time Salesperson Name Role Phone Unavailable Primary Care Provider Unavailabl e Encounter Details Date Type Department Care Team (Late st Contact Info) Description 08/12/2018 Transcribed Document [facility] Family Medicine [place] [address] ProviderJeremiah MD [address] [place], [place] [phone] Social History Tobacco Use Types Packs/Day Years Used Date Smoking Tobacco: Never Assessed Sex and Gender Information Value Date Recorded Sex Assigned at Male 12/26/2021 7:43 PM CDT Legal Sex Male 7:43 PM CDT Gender Identity Male 12/26/2021 7:43 PM CDT Sexual Orientation Not on file documented as of this encounter Miscellaneous Notes * Cerner Conversion Note - Jeremiah Dover MD - 08/12/2018 8:59 AM DIET KITCHEN COOK DATE OF ADMISSION: 08/12/2018 HISTORY OF PRESENT ILLNESS: This is a 68-year-old male with a chief complaint of chronic lower back pain for several years' duration. The patient presents today for a followup along with medication management. The patient is complaining today of lower back pain. He states that the rain seems to have flared up his arthritis and he is just really achy. The patient is complaining of bilateral knee pain. He states that again the arthritis is flaring up and making him really achy. He describes his pain as burning, stabbing, spasm, tender, stinging, sharp, tingling, numbness, aching, and throbbing. He states the he is using heat and cold to try to help alleviate his back and knee pain, but states it does not help that much right now. The patient does continue to take hydrocodone 5/325 mg 3 times a day. He states that does provide him with good relief when he takes it. The patient also continues to take gabapentin 800 mg 4 times a day. He states that also provides him with good relief. The patient states he also takes umkb-llq-sshssat anti-inflammatories along with kqru-bxm-ueqnxeq creams to try to help with this pain. He states that does provide him with some relief. The patient denies any side effects with this medications to include toxic effect, excess sedation, driving problems, or GI problems. The patient's SCOTT was reviewed and found to be appropriate at today's office visit. The patient has been compliant with his urine drug screening. REVIEW OF SYSTEMS: Constitutional, Respiratory, Cardiovascular, Ophthalmology, Gastrointestinal, Genitourinary, ENT, Musculoskeletal, Integumentary, Neurology, Psychiatry, Endocrine, and Hematology were not changed from 07/17/2018. PHYSICAL EXAMINATION: VITAL SIGNS: Blood pressure 168/80, weight 225 pounds, height 5 feet 9 inches, heart rate 78, respiratory rate 16, O2 saturation 94% on room air, temperature 97.9, hours of sleep 5, and pain 7.5/10. No change in physical and neurological exam. Muscle tone and power, sensory, and deep tendon reflexes were unchanged. The nurse notes, vital signs, and medication were reviewed and evaluated. No sign of impairment or toxicity to medicine. The patient's psych evaluation, urine drug screen, and SCOTT were appropriate for taking opioid medication. DIAGNOSTIC STUDIES: The patient did have a urine drug screen completed on 07/17/2018. It was considered appropriate. This result was discussed with the patient at today's office visit. ASSESSMENT: 1. Chronic lower back pain secondary to degenerative disk disease and degenerative joint disease of the lumbosacral spine. 2. Lumbosacral [...] mix with alcohol, or self-escalate it. 2. Refill hydrocodone 5/325 mg 3 times a day. 3. Refill gabapentin 800 mg 4 times a day. 4. I have encouraged the patient to continue doing home exercises to include walking, stretching, and range of motion exercises. I have also encouraged him to continue using heat and cold to try to help alleviate his pain. 5. The patient is going to follow up in one month for re-evaluation and medication management. 6. The assessment and plan for today's visit was reviewed by Dr. Lazo. However, I have prescribed all medications for this patient's treatment plan. Dictated By: Ximena Gold APRN For Karthik Lazo M.D., [facility] Pain Certified Karthik Lazo M.D., [facility] Certified Dict: 08/12/2018 08:59:59 Trans: 08/12/2018 12:29:37 CC1: Karthik Lazo M.D., [facility] Pain Certified CC2: Mayco Moreno MD Electronically signed by Martin Cobian Conversion Medical Record Retrieval Specialist Cerner at 10/15/2022 6:02 PM CDT documented in this encounter Plan of Treatment Not on file documented as of this encounter Visit Diagnoses Not on filedocumented in this encounter
--- OUTSIDE RECORDS SUMMARY | 2025-06-26 10:29 | XMS_ITS | Encounter Summary ---
Author Organization [employer] ([place], [place], [place], [place], [place]) Address [address] [place] [address] Care Team Providers Care Business Management Intern Name Role Phone Unavailable Primary Care Provider Unavailabl e Encounter Details Date Type Department Care Team (Late st Contact Info) Description 07/17/2018 Transcribed Document [facility] Family Medicine [facility] [place] [address] ProviderJeremiah MD [address] [place], [place] [phone] Social History Tobacco Use Types Packs/Day Years Used Date Smoking Tobacco: Never Assessed Sex and Gender Information Value Date Recorded Sex Assigned at Male 12/26/2021 7:43 PM CDT Legal Sex Male 7:43 PM CDT Gender Identity Male 12/26/2021 7:43 PM CDT Sexual Orientation Not on file documented as of this encounter Miscellaneous Notes * Cerner Conversion Note - Jeremiah Dover MD - 07/17/2018 11:49 AM SWATCH MAKER DATE OF ADMISSION: 07/17/2018 HISTORY OF PRESENT ILLNESS: This is a 68-year-old male with a chief complaint of chronic lower back pain for several years' duration. The patient presents today for a followup along with medication management. The patient is complaining of lower back pain. He states that it is not radiating. He is also having bilateral knee pain. He states that this has been exacerbated with the colder rainy weather. He states that typically flares up his arthritis and knee pain. He describes his overall pain as burning, stabbing, spasm, tender, stinging, sharp, tingling, numbness, aching, throbbing. He states overall he is hurting. The patient states he has been using hot baths to try to help alleviate his pain. He states at times it does provide him some relief. The patient states that he is also taking some fgws-bgk-ryrqekj anti-inflammatories and using knrq-ufe-jbjtvix creams to try to help with this pain. He states that does provide him with some relief. The patient also continues to take hydrocodone 5/325 mg 3 times a day and gabapentin 800 mg 4 times a day. He states these medications do provide him with good relief. The patient denies any side effects with his medications to include excess sedation, driving problems, GI problems. The patient's SCOTT was reviewed and found to be appropriate in his office visit. The patient has been compliant with his urine drug screening. I previously discussed with the patient the opportunity to do injection therapy with this clinic to try to help alleviate his pain. He declined again this month for any injection therapy. Discussed with him that we would like to do other options such as medication management to try to help him with his pain. He states that he will consider it and we can discuss it further at next month's office visit. Of note, the patient did sign for the controlled substances contract with this clinic today. All questions were answered and the patient verbalized understanding of the contract. REVIEW OF SYSTEMS: CONSTITUTIONAL: Denies eyes. Admits itching. EARS, NOSE, AND THROAT: Admits decreased hearing. NEUROLOGICAL: Admits weakness. HEMATOLOGIC/LYMPHATIC: Denies. RESPIRATORY: Admits shortness of breath. GASTROINTESTINAL: Denies. MUSCULOSKELETAL: Admits joint pain and joint stiffness. PSYCHIATRIC: Admits sleep disturbance. FUNCTIONAL STATUS: Can attend basic daily routines without needing assistance. CARDIOVASCULAR: Denies. GENITOURINARY: Denies. INTEGUMENTARY: Denies. ENDOCRINE: Admits fatigue. PHYSICAL EXAMINATION: VITAL SIGNS: Blood pressure 140/93, weight 225 pounds, height 5 feet 9 inches, heart rate 68, respiratory rate 16, O2 saturation 93% on room air, temperature 98.1. Hours of sleep 5. Pain 7/10. No change in physical and neurological exam. Muscle tone power sensory and deep tendon reflexes were unchanged. The nurse notes, vital signs, and medication were reviewed and evaluated. No sign of impairment or toxicity to medicine. The patient psych evaluation, urine drug screen, and SCOTT were appropriate for taking opioid medication. The patient did complete a psychological evaluation in the clinic today. He completed the COMM psychological evaluation. His score was 8, indicating moderate to high risk to continue any opioid medications. Discussed this score with the patient and he feels like a lot of his issues are the flare-up of his pain over the last month. ASSESSMENT: 1. Chronic lower back pain secondary to degenerative joint disease and degenerative disk disease of the lumbosacral spine. 2. Lumbosacral radiculopathy. 3. Lumbosacral spondylosis. 4. Chronic bilateral knee pain secondary to degenerative joint disease and osteoarthritis of the knee. 5. Long-term opioid use. 6. Obesity. PLAN: 1. The patient states he has been using the compounding cream to try to help with his back pain. 2. I have encouraged the patient to take hesp-nke-jxbilzk anti-inflammatories as needed. 3. Refill gabapentin 800 mg 4 times a day. 4. Refill hydrocodone 5/325 mg 3 times a day. 5. The patient is going to have a urine drug screening completed today to ensure compliance with his opioid therapy. 6. I have encouraged the patient to continue doing his home exercises to include walking, stretching, and range of motion exercises. 7. The patient is going to follow up in one month for re-evaluation and medication management. 8. The patient has been fairly well controlled [...] to mix with alcohol, or self-escalate it. 9. The assessment and plan for today's visit was reviewed by Dr. Lazo. However, I have prescribed all medications for this patient's treatment plan. Dictated By: Ximena Gold APRN For Karthik Lazo M.D., SHUN Pain Certified Karthik Lazo M.D., SHUN Pain Certified Dict: 07/17/2018 11:49:46 Trans: 07/17/2018 16:52:10 CC1: Karthik Lazo M.D., SHUN Pain Certified CC2: Mayco Moreno MD Electronically signed by [employer] Conversion Nonprofit Fundraiser Cerner at 10/15/2022 5:57 PM CDT documented in this encounter Plan of Treatment Not on file documented as of this encounter Visit Diagnoses Not on filedocumented in this encounter
--- OUTSIDE RECORDS SUMMARY | 2025-06-26 10:29 | XMS_ITS | Encounter Summary ---
Author Organization Healthcare Address [address] [place] [address] Care Team Providers Care Fish Salter Name Role Phone Lee Collier MD Unavailable [phone] Debbie Medina MD Primary Care Provider + [phone] Kristopher Benitez RN Unavailable Unavailable Bekah Flores RN Unavailable Unavailable Reason for Visit * Reason Comments HRCM Encounter Details Date Type Department Care Team (Late st Contact Info) Description 06/10/2025 Patient Outreach POPULATION HEALTH [address], [address] [place] [address] Bekah Flores, DEANNA None None [...] often do you attend chur ch or presybeterian services? More than 4 times per year 10/16/2022 Do you belong to any clubs o r organizations such as yarsani groups, unions, fraternal or athletic groups, or [...] living in a assisted (including now)? No 05/21/2025 [facility] Utilities Answer Date Recorded In the [...] drink first t july in the morning (EYE-CLINICAL ANALYST) to steady your nerves or to [...] Answer Entry Date Author Outreach Reason Follow-Up 06/10/2025 2:11 PM Bekah Arroyo RN Pop Health Reason For Encounter HRCM 2:11 PM Bekah Kim RN documented in this encounter Miscellaneous Notes * Progress Notes - Bekah Flores RN - 06/10/2025 2:06 PM EST 06/10/2025 HRCM Follow-Up Call Patient reached: Yes Care coordination Summary: Patient was reached and reports he is doing ok. RN informed patient he sounded better today. He is with his chiropractic care and waiting on his daughter, He is going to go stay with her while this area gets bad weather. He doesn't want to be home alone. RN agrees and he reports daughter is on her way. RNinformed patient I would fu tomorrow as well, he agrees. Next Steps: Check list updated Bekah Flores RN HRCM Nurse Population Health documented in this encounter Plan of Treatment Upcoming Encounters Date Type Department Care Team ([facility] st Contact Info) Description 07/05/2025 3:00 PM EST Clinical Support [facility]ology/B[facility] and Cellular Therapy Program [address] [place] [phone] 07/05/2025 3:30 PM EST Office Visit [facility] Therapy [facility] [address] [phone] Vaishnavi Almaraz MD 800 [facility] [address] [phone] 09/13/2025 10:30 AM EDT Clinical Support [facility] [address] [place] [phone] 09/13/2025 11:00 AM EDT Office Visit [facility] [address] [phone] Vaishnavi Almaraz MD 800 [facility] [address] [phone] documented as of this encounter Visit Diagnoses [...] documented as of this encounter Care Teams Fish Salter Relationship Specialty Start Date End Date Debbie Medina MD [address] [facility] [address] [place] [address] PCP - General 09/28/24 Lee oCllier MD [address] [place] [address] Internal Medicine 10/18/23 Kristopher Benitez RN None None Registered Nurse Hematology and Oncology 03/15/25 Bekah Flores RN None None Registered Nurse 05/25/25 documented as of this encounter
--- OUTSIDE RECORDS SUMMARY | 2025-06-26 10:29 | XMS_ITS | Encounter Summary ---
Author Organization Healthcare Address [address] [place] [address] Care Team Providers Care Housing Director Name Role Phone Lee Collier MD Unavailable [phone] Debbie Medina MD Primary Care Provider + [phone] Kristopher Benitez RN Unavailable Unavailable Bekah Flores RN Unavailable Unavailable Encounter Details Date Type Department Care Team (Latest Contact Info) Description 06/20/2025 Travel Social History Tobacco Use Types Packs/Day [...] you attend [facility] or hinduism services? More than 4 times per year [...] in a fci (including now)? No 06/18/2025 [facility] Utilities Answer Date Recorded In [...] drink first t july in the morning (EYE-THOROUGHBRED HORSE FARM MANAGER) to steady your nerves or to [...] Upcoming Encounters Date Type Department Care Team ([facility] st Contact Info) Description 07/05/2025 3:00 PM EST Clinical Support [facility] [address] [place] [phone] 07/05/2025 3:30 PM EST Office Visit [facility] [address] [place] [address] Vaishnavi Almaraz MD 800 [facility] [address] [place] [phone] 09/13/2025 10:30 AM EDT Clinical Support [facility] [address] [place] [address] 09/13/2025 11:00 AM EDT Office Visit [facility] Therapy [facility] [address] [place] [phone] Vaishnavi Almaraz MD 800 [facility] [address] [place] [phone] documented as of this encounter Visit Diagnoses [...] documented as of this encounter Care Teams Housing Director Relationship Specialty Start Date End Date Debbie Medina MD [address] [facility] [address] [place] [address] PCP - General 09/28/24 Lee Collier MD [address] [place] [phone] Internal Medicine 10/18/23 Kristopher Benitez RN None None Registered Nurse Hematology and Oncology 03/15/25 Bekah Flores, DEANNA None None Registered Nurse 05/25/25 documented as of this encounter
--- OUTSIDE RECORDS SUMMARY | 2025-06-26 10:29 | XMS_ITS | Encounter Summary ---
Author Organization [facility] ([place], [place], [place], [place], [place]) Address [address] [place] [address] Care Team Providers Care E Commerce Merchant Name Role Phone Unavailable Primary Care Provider Unavailabl e Encounter Details Date Type Department Care Team (Late st Contact Info) Description 10/07/2018 Transcribed Document [facility] Radiology [address] [place] [address] Provider, Martin Daniels MD Social History Tobacco Use Types Packs/Day Years Used Date Smoking Tobacco: Never Assessed Sex and Gender Information Value Date Recorded Sex Assigned at Male 12/26/2021 7:43 PM CDT Legal Sex Male 7:43 PM CDT Gender Identity Male 12/26/2021 7:43 PM CDT Sexual Orientation Not on file documented as of this encounter Miscellaneous Notes * Cerner Conversion Note - Fabian Jeremiah Dover MD - 10/07/2018 1:44 PM EDT DATE OF ADMISSION: 10/07/2018 HISTORY OF PRESENT ILLNESS: This is a 68-year-old male with a chief complaint of chronic lower back pain for several years' duration. The patient presents today for a followup along with medication management. The patient is complaining today of lower back pain. He states he is also having bilateral knee pain. He states he is having some right arm pain. He describes his overall pain as burning, stabbing, aching, and throbbing. He states he does use heat on his knees and his lower back and states that helps some. The patient does continue to take hydrocodone 5/325 mg 3 times a day as needed for pain. He states that does provide him with good relief when he takes it. The patient also continues to take gabapentin 800 mg 4 times a day. He states that does provide him with additional relief. The patient denies any side effects with these medications to include toxic effect, excess sedation, driving problems, GI problems. The patient's SCOTT was reviewed and found to be appropriate at today's office visit. The patient has been compliant with his urine drug screening. REVIEW OF SYSTEMS: Constitutional, Respiratory, Cardiovascular, Ophthalmology, Gastrointestinal, Genitourinary, ENT, Musculoskeletal, Integumentary, Neurology, Psychiatry, Endocrine, Hematology were not changed from 09/10/2018. PHYSICAL EXAMINATION: VITAL SIGNS: Blood pressure 149/67, weight 225 pounds, height 5 feet 9 inches, heart rate 64, respiratory rate 16, O2 saturation 95% on room air, temperature 98.1. Hours of [...] do home exercises to include walking, stretching, range of motion exercises. I have also encouraged him to use heat and cold to try to help [...] Karthik Lazo M.D., SHUN Pain Certified Dict: 10/07/2018 12:44:56 Trans: 10/07/2018 16:55:24 CC1: Karthik Lazo M.D., SHUN Pain Certified CC2: Mayco Moreno MD Electronically signed by [employer] Conversion Senior Instrumentation Engineer Cerner at 11/27/2022 1:59 PM CDT documented in this encounter Plan of Treatment Not on file documented as of this encounter Visit Diagnoses Not on filedocumented in this encounter
--- OUTSIDE RECORDS SUMMARY | 2025-06-26 10:29 | XMS_ITS | Encounter Summary ---
Author Organization [employer] ([place], [place], [place], [place], [place]) Address [address] [place] [address] Care Team Providers Care Loan Documentation Specialist Name Role Phone Unavailable Primary Care Provider Unavailabl e Encounter Details Date Type Department Care Team (Late st Contact Info) Description 06/20/2018 Transcribed Document [facility] Family Medicine [facility] [place] [address] ProviderJeremiah MD [address] [place], [place] [phone] Social History Tobacco Use Types Packs/Day Years Used Date Smoking Tobacco: Never Assessed Sex and Gender Information Value Date Recorded Sex Assigned at Male 12/26/2021 7:43 PM CDT Legal Sex Male 7:43 PM CDT Gender Identity Male 12/26/2021 7:43 PM CDT Sexual Orientation Not on file documented as of this encounter Miscellaneous Notes * Cerner Conversion Note - Jeremiah Dover MD - 06/20/2018 11:33 AM PRACTICAL NURSING FACULTY DATE OF ADMISSION: 06/20/2018 HISTORY OF PRESENT ILLNESS: This is a 68-year-old male with a chief complaint of chronic lower back pain that presents for a followup visit today. The patient states that the pain seems to have worsened over the last month. He attributes it to the colder and rainy weather. He states that he seems to have more pain in his left hip. He states that also he has been having really bad knee pain. The patient states that he does feel like he is having some weakness in his lower extremities. The patient describes this pain as aching and throbbing. The patient states he has had to decrease his activity level due to the increased pain. The patient states he has tried to do stretches and exercises to help with his pain, but it does not seem to give him any relief. The patient states he has been trying to take some fcab-zvm-vnmzqyl anti-inflammatories to help with this. He states that does provide him with some relief. The patient does continue to take hydrocodone 5/325 mg 3 times a day. He states this does provide him with good relief when he takes it. The patient also continues to take gabapentin 800 mg 4 times a day. The patient states this does help some with this pain too. I discussed with the patient that we can also do knee injection and other joint injections at our clinic. He states that he just does not feel like he would like to do that at this time. The patient states he is just going to wait and see if it gets any better. The patient denies any side effects with his medications to include excess sedation, driving problems, GI problems. The patient's SCOTT was reviewed and found to be appropriate at today's office visit. The patient has been compliant with his urine drug screening. REVIEW OF SYSTEMS: Constitutional, Respiratory, Cardiovascular, Ophthalmology, Gastrointestinal, Genitourinary, ENT, Musculoskeletal, Integumentary, Neurology, Psychiatry, Endocrine, Hematology were not changed from 05/16/2018. PHYSICAL EXAMINATION: VITAL SIGNS: Blood pressure 181/86, weight 232 pounds, height 5 feet 9 inches, heart rate 66, respiratory rate 16, O2 saturation 95% on room air, temperature 98.2. Hours of sleep 5. Pain 8/10 to 9/10. No change in physical and neurological exam. [...] 2. Lumbosacral radiculopathy. 3. Lumbosacral spondylosis. 4. Degenerative joint disease of both knees. 5. Long-term opioid use. 6. Obesity. 7. Opioid-induced constipation PLAN: 1. The patient does continue to use [place] cream and states that does provide him with some relief. 2. The patient also has a compounding cream that he has been using for his back and that does provide him with some relief. 3. The patient has continued to take naproxen xvze-uke-lzvhvsu as needed. 4. Refill gabapentin 800 mg 4 times a day. 5. Refill [place] 5/325 mg 3 times a day as needed for pain. 6. I have encouraged the patient to continue doing home exercise program to include walking, stretching, range of motion exercises. 7. The patient [...] visit has been reviewed by Dr. Lazo. However, I have prescribed all medications to include scheduled medications for this patient's treatment plan. Dictated By: Ximena Gold APRN For Karthik Lazo M.D., SHUN Pain Certified Karthik Lazo M.D., SHUN Pain Certified Dict: 06/20/2018 11:33:09 Trans: 06/20/2018 13:27:01 CC1: Karthik Lazo M.D., SHUN Pain Certified CC2: Mayco Moreno MD documented in this encounter Plan of Treatment Not on file documented as of this encounter Visit Diagnoses Not on filedocumented in this encounter
--- OUTSIDE RECORDS SUMMARY | 2025-06-26 10:29 | XMS_ITS | Encounter Summary ---
Author Organization Healthcare Address [address] [place] [address] Care Team Providers Care Suture Gauger Name Role Phone Lee Collier MD Unavailable [phone] Debbie Medina MD Primary Care Provider + [phone] Kristopher Benitez RN Unavailable Unavailable Encounter Details Date Type Department Care Team (Late st Contact Info) Description 04/27/2025 Telephone [facility] first line production supervisor [facility] [address] [place] [address] [address] [place] [address] Wai, Surgeon, [address] [place], [place] [phone] Social History Tobacco Use Types Packs/Day Years [...] often do you attend chur ch or druze services? More than 4 times per year 10/16/2022 Do you belong to any clubs o r organizations such as religious groups, unions, fraternal or athletic groups, or [...] drink first t july in the morning (EYE-CONSERVATION ASSISTANT) to steady your nerves or to get [...] encounter Miscellaneous Notes * Telephone Encounter - Karla Dumont - 04/27/2025 3:03 PM EDT Attempted to reach patient to inquire on who he is seeing for cardiac care; left vm asking patient to call me back at my direct line with name of provider and/or phone number. documented in this encounter Plan of Treatment Upcoming Encounters Date Type Department Care Team (Late st Contact Info) Description 07/05/2025 3:00 PM EST Clinical Support [facility] Therapy [facility] [address] [place] [address] [place] [phone] 07/05/2025 3:30 PM EST Office Visit [facility] Therapy [facility] [address] [place] [phone] Vaishnavi Almaraz MD 800 [facility] [address] [place] [phone] 09/13/2025 10:30 AM EDT Clinical Support [facility] Therapy [facility] [address] [place] [phone] 09/13/2025 11:00 AM EDT Office Visit [facility] Therapy [facility] [address] [place] [phone] Vaishnavi Almaraz MD 800 [facility] [address] [place] [phone] documented as of this encounter Visit Diagnoses [...] documented as of this encounter Care Teams Suture Gauger Relationship Specialty Start Date End Date Debbie Medina MD [address] [facility] [address] [place] [address] PCP - General 09/28/24 Lee Collier MD [address] [place] [address] Internal Medicine 10/18/23 Kristopher Benitez, RN None None Registered Nurse Hematology and Oncology 03/15/25 documented as of this encounter
--- OUTSIDE RECORDS SUMMARY | 2025-06-26 10:29 | XMS_ITS | Encounter Summary ---
Author Organization Healthcare Address [address] [place] [address] Care Team Providers Care Authorization Nurse Name Role Phone Lee Collier MD Unavailable [phone] Debbie Medina MD Primary Care Provider + [phone] Kristopher Benitez RN Unavailable Unavailable Reason for Visit * Reason Onset Date Comments HCN - Patient Message 05/07/2025 Encounter Details Date Type Department Care Team (Late st Contact Info) Description 05/07/2025 Telephone Medical Office Building Lab [address] [place] [address] Tyler Buenrostro, [address] [place] [phone] HCN - Patient Message Social History Tobacco Use Types Packs/Day Years [...] often do you attend chur ch or spiritism services? More than 4 times per year 10/16/2022 Do you belong to any clubs o r organizations such as taoist groups, unions, fraternal or athletic groups, or [...] drink first t july in the morning (EYE-BIOFUELS ENGINEERING MANAGER) to steady your nerves or to [...] Telephone Encounter - Sherly Jarvis RN - 05/07/2025 3:57 PM EST Spoke with pt's caregiver and stated he has not been seen by our aircraft engine assembler and he will need to come to his appt on Saturday and we will be able to provide clearance. Pt verbalized understanding and verified the time of the appt on Saturday. Sherly Jarvis, RN * Telephone Encounter - Guido Ana Maria D - 05/07/2025 2:44 PM EST Clinical Concern/Question Reason for Call: pt needs a cardiac clearance for tooth extraction that was suppose to be done today. Best contact number: Other: [phone] Optimal time of day to reach caller: ANYTIME Additional comments/information from caller: None Note: Please do not reply to this message. Follow-up communication and further actions as a result of this message need to be communicated with the patient directly, if the patient is not active onMyChart. If the patient is active on MyChart, they will receive notification of the communication/outcome via Superflyhart. documented in this encounter Plan of Treatment Upcoming Encounters Date Type Department Care Team (Late st Contact Info) Description 07/05/2025 3:00 PM EST Clinical Support [facility] Hematology/BMT and Cellular Therapy Program [address] [place] [phone] 07/05/2025 3:30 PM EST Office Visit [facility] H[facility]ology[facility] Cellular Therapy Program [address] [phone] Vaishnavi Almaraz MD 800 [facility] [address] [place] [phone] 09/13/2025 10:30 AM EDT Clinical Support [facility] H[facility]ology/BMT and Cellular Therapy Program [address] [place] [phone] 09/13/2025 11:00 AM EDT Office Visit [facility] H[facility]ology/B[facility] Cellular Therapy Program [address] [phone] Vaishnavi Almaraz MD 800 [facility] [address] [place] [address] documented as of this encounter Visit Diagnoses [...] documented as of this encounter Care Teams Authorization Nurse Relationship Specialty Start Date End Date Debbie Medina MD 208 [facility] [address] [place] [address] PCP - General 09/28/24 Lee Collier MD [address] [place] [phone] Internal Medicine 10/18/23 Kristopher Benitez RN None None Registered Nurse Hematology and Oncology 03/15/25 documented as of this encounter
--- OUTSIDE RECORDS SUMMARY | 2025-06-26 10:29 | XMS_ITS | Encounter Summary ---
Author Organization Healthcare Address [address] [place] [address] Care Team Providers Care Pipe Smoking Machine Operator Name Role Phone Lee Collier MD Unavailable [phone] Debbie Medina MD Primary Care Provider + [phone] Kristopher Benitez RN Unavailable Unavailable Encounter Details Date Type Department Care Team (Late st Contact Info) Description 05/04/2025 Telephone [facility] bobbin collector Faculty Clinic [address] [place] [address] [address] [place] [address] Wai, Surgeon, [address] [place], [place] [phone] Social History Tobacco Use Types Packs/Day Years [...] often do you attend chur ch or religion services? More than 4 times per year 10/16/2022 Do you belong to any clubs o r organizations such as druze groups, unions, fraternal or athletic groups, or [...] any time in the past 12 m [facility], were you homeless or living in a intermediate (including now)? No 01/19/2025 CAGE ASSESSMENT Answer [...] drink first t july in the morning (EYE-FAGOT HEATER) to steady your nerves or to get [...] encounter Miscellaneous Notes * Telephone Encounter - Neelima Roche - 05/04/2025 2:40 PM EST Attempted to reach patient to inquire on [...] [facility] Hematology/BMT and Cellular Therapy Program [address] [place] [address] [place] [address] 07/05/2025 3:30 PM EST Office Visit [facility] H[facility]ology[facility]BMT [facility] Cellular Therapy Program [address] [place] [phone] Vaishnavi Almaraz MD 800 [facility] [address] [place] [phone] 09/13/2025 10:30 AM EDT Clinical Support [facility]ology/BMT [facility] Cellular Therapy Program [address] [place] [phone] 09/13/2025 11:00 AM EDT Office Visit [facility] Hematology/BMT and Cellular Therapy Program [address] [place] [phone] Vaishnavi Almaraz MD 800 [facility] [address] [place] [phone] documented as of this encounter Visit [...] documented as of this encounter Care Teams Pipe Smoking Machine Operator Relationship Specialty Start Date End Date Debbie Medina MD 208 [facility] [address] [place] [address] PCP - General 09/28/24 Lee Collier MD [address] [place] [address] Internal Medicine 10/18/23 Kristopher Benitez RN None None Registered Nurse Hematology and Oncology 03/15/25 documented as of this encounter
--- OUTSIDE RECORDS SUMMARY | 2025-06-26 10:29 | XMS_ITS | Encounter Summary ---
Author Organization [facility] ([place], [place], [place], [place], [place]) Address [address] [place] [address] Care Team Providers Care Grain Oilseed Or Pasture Farm Manager Name Role Phone Unavailable Primary Care Provider Unavailabl e Encounter Details Date Type Department Care Team (Late st Contact Info) Description 09/10/2018 Transcribed Document [facility] Family Medicine [facility] [place] [address] ProviderJeremiah MD [address] [place] [phone] Social History Tobacco Use Types Packs/Day Years Used Date Smoking Tobacco: Never Assessed Sex and Gender Information Value Date Recorded Sex Assigned at Male 12/26/2021 7:43 PM CDT Legal Sex Male 7:43 PM CDT Gender Identity Male 12/26/2021 7:43 PM CDT Sexual Orientation Not on file documented as of this encounter Miscellaneous Notes * Cerner Conversion Note - Jeremiah Dover MD - 09/10/2018 9:38 AM CDT DATE OF ADMISSION: 09/10/2018 HISTORY OF PRESENT ILLNESS: This is a 68-year-old male with a chief complaint of chronic lower back pain for several years' duration. The patient presents today for a followup along with medication management. The patient states he is having lower back pain today. He states he is also having bilateral knee pain. He states that the colder weather seems to have really flared up the arthritis in his body. He states, it is so bad that the right arm is aching and he states that it makes mobility difficult for him. He states that also makes difficult to picking tech items with his hands due to the throbbing from the arthritis. He describes his lower back pain as burning, stabbing, aching, throbbing. He is using heat on his lower back and that is helping a little bit he says. The patient does continue to take gabapentin 800 mg 4 times a day. He states that does provide him with relief when he takes it. The patient does continue to take hydrocodone 5/325 mg 3 times a day as needed for pain. He states he feels like he could always take more as he is always in constant pain. He states he would like to see if he can have an increase today. After a lengthy discussion, he states he does not want to do any injection therapy or anything else to help with his pain at this time. So I discussed with him that we will hold off on increasing his medications. The patient states he does continue to take jhph-ddr-jkgaauh anti-inflammatories along with nomc-qcz-gnuundm creams to try to help with his pain. He states those do provide him with some relief. The patient [...] Psychiatry, Endocrine, Hematology were not changed from 08/12/2018. PHYSICAL EXAMINATION: VITAL SIGNS: Blood pressure 158/82, height 5 feet 9 inches, heart rate 69, respiratory rate 18, O2 saturation 96% on room air, temperature 97.7. Hours of sleep 5. Pain 8/10. No change in physical and neurological [...] 4. I have encouraged the patient to try to do some home exercises to include walking, stretching, range of motion exercises. I have also encouraged him to use heat and cold to try to help alleviate his pain. 5. The patient is going to follow up in one month for re-evaluation and medication management. 6. The assessment and plan for today's visit was reviewed by Dr. Lazo. However, all medications for this patient's treatment plan were prescribed by me. Dictated By: Ximena Gold APRN For Karthik Lazo M.D., SHUN Pain Certified Karthik Lazo M.D., SHUN Pain Certified Dict: 09/10/2018 09:38:17 Trans: 09/10/2018 13:51:40 CC1: Karthik Lazo M.D., SHUN Pain Certified CC2: Mayco Moreno MD documented in this encounter Plan of Treatment Not on file documented as of this encounter Visit Diagnoses Not on filedocumented in this encounter
--- OUTSIDE RECORDS SUMMARY | 2025-06-26 10:29 | XMS_ITS | Encounter Summary ---
Author Organization Healthcare Address [address] [place] [address] Care Team Providers Care Radio Aerial Installer Name Role Phone Lee Collier MD Unavailable [phone] Debbie Medina MD Primary Care Provider + [phone] Kristopher Benitez RN Unavailable Unavailable Bekah Flores RN Unavailable Unavailable Reason for Visit * Reason Comments HRCM Encounter Details Date Type Department Care Team (Late st Contact Info) Description 06/11/2025 Patient Outreach POPULATION HEALTH [address], [address] [place] [address] Bekah Flores, DEANNA None None [...] often do you attend chur ch or pentecostal services? More than 4 times per year [...] were you homeless or living in a nursing home (including now)? No 06/18/2025 [facility] Utilities Answer Date Recorded In the [...] drink first t july in the morning (EYE-PRIVATE CHEF) to steady your nerves or to get [...] Answer Entry Date Author Outreach Reason Follow-Up 06/11/2025 3:29 PM EST Bekah Woo RN Pop Health Reason For Encounter [facility] 3:29 PM EST Bekah Flores RN documented in this encounter Miscellaneous Notes * Progress Notes - Bekah Flores RN - 06/11/2025 3:26 PM EST 06/11/2025 HRCM Follow-Up Call Patient reached: Yes Care coordination Summary: RN called patient to check on patient over all. He reported he was with his daughter in her home and warm and ok. He said he is still weak and not the best but he was with his daughter and managing needs. RN asked if he thinks he should return to ER and he said not right now. He mentioned having too much going on . RN informed patient I would fu after the weekend. He agrees. Next Steps: Check list updated. Bekah Flores RN HRCM Nurse Population Health documented in this encounter Plan of Treatment Upcoming Encounters Date Type Department Care Team ([facility] Contact Info) Description 07/05/2025 3:00 PM EST Clinical Support [facility] Hematology/BMT and Cellular Therapy Program [address] [place] [phone] 07/05/2025 3:30 PM EST Office Visit [facility] CC Hematology/BMT and Cellular Therapy Program [address] [place] [phone] Vaishnavi Almaraz MD 800 [facility] [address] [phone] 09/13/2025 10:30 AM EDT Clinical Support [facility] CC Hematology/BMT and Cellular Therapy Program [address] [place] [phone] 09/13/2025 11:00 AM EDT Office Visit [facility] Hematology/BMT and Cellular Therapy Program [address] [place] [phone] Vaishnavi Almaraz MD 800 [facility] [address] [phone] documented as of this encounter Visit Diagnoses [...] documented as of this encounter Care Teams Radio Aerial Installer Relationship Specialty Start Date End Date Debbie Medina MD 208 [facility] [address] [place] [address] PCP - General 09/28/24 Lee Collier MD [address] [place] [address] Internal Medicine 10/18/23 Kristopher Benitez RN None None Registered Nurse Hematology and Oncology 03/15/25 Bekah Flores RN None None Registered Nurse 05/25/25 documented as of this encounter
--- OUTSIDE RECORDS SUMMARY | 2025-06-26 10:29 | XMS_ITS | Encounter Summary ---
Author Organization [facility] Address [address] [place] [address] Care Team Providers Care Fourth Officer Name Role Phone Lee Collier MD Primary Care Provider [phone] Lee Collier MD Unavailable [phone] Radha Zelaya FILM MASKER Unavailable Unavailable Debbie Medina MD Primary Care Provider + [phone] Binta Jones Unavailable Unavailable Camille Gonzalez FILM MASKER Unavailable UnavailEmma Westbrook Unavailable Unavailable Evelyn Mason FILM MASKER Unavailable Unavailable Kristopher Benitez RN Unavailable Unavailable Bekah Flores RN Unavailable Unavailable Reason for Visit * Reason Comments Distress Screen Follow-up Encounter Details Date Type Department Care Team (Late st Contact Info) Description 11/11/2023 Social Work Psych Oncology [address] [place] [address] [place] [address] Social History Tobacco Use Types Packs/Day Years Used Date Smoking Tobacco: Never Smokeless Tobacco: Never Alcohol Use Standard Drinks/Week Comments Not Currently 0 (1 standard drink = 0.6 oz pur e alcohol) Social Connection and Isolation Panel Answer Date Recorded Frequency of Communication w ith Friends and Family Not on file 10/16/2022 How often do you get togethe r with friends or relatives? Never 10/16/2022 How often do you attend [facility] or anglican services? More than 4 times per year 10/16/2022 Do you belong to any clubs o r organizations such as cheondoism groups, unions, fraternal or athletic groups, or [...] more drinks on one occasion? Never 10/16/2022 PHQ-2 Answer Date Recorded Patient Health Questionnaire-2 Score 2 07/09/2023 Exercise Vital Sign Answer Date Recorde d On average, how many days pe r week do you engage in moderate to strenuous exercise (like a brisk walk)? 0 days 10/16/2022 On average, how many minutes do you engage in exercise at this level? 0 min 10/16/2022 PRAPARE - Transportation Answer Date Re corded In the past 12 months, has l ack of transportation kept you from medical appointments or from getting medications? No 09/29 In the past 12 months, has l ack of transportation kept you from meetings, work, or from getting things needed for daily living? No 10/16/2022 PHQ-2A Answer Date Recorded Patient Health Questionnaire-2 Score 0 03/22/2023 Sex and Gender Information Value Date Recorded Sex Assigned at Male 10/10/2024 1:42 PM EDT Legal Sex Male 6:11 PM EDT Gender Identity Not on file Sexual Orientation Not on file documented as of this encounter Mental Status * Psych Onc Group Question Answer Entry Date Author Intervention Level 3 11/11/2023 3: 15 PM EDT Yelena Stoddard LCSW Units (1 unit = 15 minutes) 2 11/11/2023 3:15 PM EDT Yelena Stoddard LCSW Disease Status Initial Psych Onc Contact 2023 3:15 PM EDT Yelena Stoddard LCSW Clinic Location [facility] 11/11/2023 3:15 PM EDT Yelena Stoddard LCSW Disease Type Other Myeloproliferative Neoplasm 0 11/11/2023 3:15 PM EDT Yelena Stoddard LCSW Encounter Type Distress Follow Up - In Person 11/11/2023 3:15 PM EDT Yelena Stoddard LCSW Services Provided Emotional Support 11/11/2023 3 :15 PM EDT Yelena Stoddard LCSW Education Provided Psych-Onc Services 11/11/2023 3:15 PM EDT Yelena Stoddard LCSW documented in this encounter Miscellaneous Notes * Clinician Note - Yelena Stoddard LCSW - 11/11/2023 3:15 PM EDT Encounter Type: Distress Follow Up - In Person Disease Status: Initial Psych Onc Contact Clinic Location: [facility] Disease Type Other: Myeloproliferative Neoplasm Services Provided: Emotional Support Education Provided: Psych-Onc Services Intervention Level: 3 Units (1 unit = 15 minutes): 2 Narrative: IDANIA along with colleague Mohsen Ron met with patient in exam room in response to distress screening. Patient was pleasant, cooperative, and willing to engage. He relates his distress mostly to chronic pain he deals with on day to day basis. Patient acknowledges both good days and bad days' but has reached point of acceptance with everything. BATHHOUSE KEEPER acknowledged patient feelings inrelation to this and continued to actively listen. He shares he is currently on pain regimen that he considers manageable but acknowledges that living with chronic pain is just challenge in general. BATHHOUSE KEEPER explored therapeutic interviews for chronic pain like CBT and/or integrative medicine. Patient d eclined need for services. He was provided education on supportive services available through Psych-Onc, with emphasis on integrative medicine, and provided with contact information for supportive needs when/if they arise. documented in this encounter Plan of Treatment Upcoming Encounters Date Type Department Care Team (Late st Contact Info) Description 07/05/2025 3:00 PM EST Clinical Support [facility] Hematology/BMT and Cellular Therapy Program [address] [place] [address] [place] [address] 07/05/2025 3:30 PM EST Office Visit [facility] Hematology/BMT and Cellular Therapy Program [address] [place] [phone] Vaishnavi Almaraz MD 800 [facility] [address] [place] [address] [phone] 09/13/2025 10:30 AM EDT Clinical Support [facility] CC Hematology/BMT and Cellular Therapy Program [address] [place] [phone] 09/13/2025 11:00 AM EDT Office Visit [facility] Hematology/BMT and Cellular Therapy Program [address] [place] [address] Vaishnavi Almaraz MD 800 [facility] [address] [place] [address] [phone] documented as of this encounter Visit Diagnoses Not on filedocumented in this encounter Additional Health Concerns Infection Onset Date Last Indicated Resolved Time COVID-19 Rule-Out 07/02/2024 07/02/2024 07/02/2024 9:12 PM EST Respiratory Rule-Out 07/02/2024 07/02/2024 025 10:08 PM EST Assessment Noted Time A fall risk assessment has been complete d for the patient 11/11/2023 11:07 AM EDT A Body Mass Index follow-up plan has been documented for the patient 07/12/2023 6:20 AM EST documented as of this encounter Care Teams Fourth Officer Relationship Specialty Start Date End Date Lee Collier MD [address] [place] [phone] PCP - General Internal Medicine 10/18/23 09/27/24 Debbie Medina MD 208 [facility] [address] [place] [address] PCP - General 3/31/25 Lee Collier MD [address] [place] [address] Internal Medicine 10/18/23 Radha Zelaya LPN [employer] [address] None TCM Nurse 07/10/24 08/09/24 Binta Jones Chemistry Technical Officer Rig Site Engineer 09/28/24 09/28/24 Camille Gonzalez LPN [facility] None TCM Nurse 09/30/24 11/12/24 Emma Abdullahi Community Health Worker 10/01/24 10/26/24 Evelyn Mason LPN VALUE[employer] [address] None TCM Nurse 02/01/25 03/03/25 Kristopher Benitez, RN None None Registered Nurse Hematology and Oncology 03/15/25 Bekah Flores, RN None None Registered Nurse 05/25/25 documented as of this encounter
--- OUTSIDE RECORDS SUMMARY | 2025-06-26 10:29 | XMS_ITS | Encounter Summary ---
Author Organization Healthcare Address [address] [place] [address] Care Team Providers Care Instrument Designer Name Role Phone Lee Collier MD Unavailable [phone] Debbie Medina MD Primary Care Provider + [phone] Kristopher Benitez RN Unavailable Unavailable Bekah Flores RN Unavailable Unavailable Reason for Referral * Consultation (Routine) - Closed Specialty Diagnoses / Procedures Referred By Karina angeles Referred To Contact Oral Surgery Diagnoses Extraction of tooth needed Marco Paiz DMD [address] [place], [address] Phone: tel: fax: [facility] water registrar [facility] [address] [place] [address] [address] [place] [address] Phone: tel: Referral ID Status Reason Start Date Expiration Date V isits Requested Visits Authorized [id number] Closed Specialty Services Required 04/20/2025 10/20/2026 1 1 Encounter Details Date Type Department Care Team (Late st Contact Info) Description 04/20/2025 Community [facility] Community Practice [address] [place] [address] Marco Paiz DMD [address] [place], [id number] Extraction of tooth needed (Primary Dx) Social History Tobacco Use Types [...] Never 10/16/2022 How often do you attend [facility] or church services? More than 4 times per year 10/16/2022 Do you belong to any clubs o r organizations such as sikh groups, unions, fraternal or athletic groups, or [...] any time in the past 12 m [facility], were you homeless or living in a snf (including now)? No 01/19/2025 CAGE ASSESSMENT Answer [...] drink first t july in the morning (EYE-SEAFOOD PACKER) to steady your nerves or to get rid of a hangover? 0 01/19/2025 CAGE Questionnaire Score 0 025 Utilities Answer Date Recorded In the past 12 months has th e [employer], [employer], oil, or water company threatened to shut [...] Upcoming Encounters Date Type Department Care Team ([facility] [place] st Contact Info) Description 07/05/2025 3:00 PM EST Clinical Support [facility] Hematology/BMT and Cellular Therapy Program [address] [place] [phone] 07/05/2025 3:30 PM EST Office Visit [facility] Hematology/BMT and Cellular Therapy Program [address] [place] [phone] Vaishnavi Almaraz MD 800 [facility] [address] [place] [phone] 09/13/2025 10:30 AM EDT Clinical Support [facility]ology/BMT and Cellular Therapy Program [address] [place] [phone] 09/13/2025 11:00 AM EDT Office Visit [facility] Hematology/BMT and Cellular Therapy Program [address] [place] [phone] Vaishnavi Almaraz MD 800 [facility] [address] [place] [phone] Scheduled Referrals Name Type Priority Associated Diagnoses Order Schedule Ambulatory referral to Oral Maxillofacial Surgery Outpatient Referral Routine Extraction of tooth needed 1 Occurrences starting 04/20/2025 until 10/22/2026 documented as of this encounter Visit Diagnoses Diagnosis Extraction of tooth needed- Primary documented in this encounter Additional Health Concerns Assessment Noted Time PHQ-9 Depression Total Score: 8 02/06/20 25 8:29 AM EDT A fall risk assessment has been complete d for the patient 03/15/2025 10:46 AM EDT A Body Mass Index follow-up plan has been documented for the patient 04/13/2025 10:57 AM EDT documented as of this encounter Care Teams Instrument Designer Relationship Specialty Start Date End Date Debbie Medina MD 208 [facility] [address] [place] [address] PCP - General 09/28/24 Lee Collier MD [address] [place] [phone] Internal Medicine 10/18/23 Kristopher Benitez, DEANNA None None Registered Nurse Hematology and Oncology 03/15/25 Bekah Flores, DEANNA None None Registered Nurse 05/25/25 documented as of this encounter
--- OUTSIDE RECORDS SUMMARY | 2025-06-26 10:29 | XMS_ITS ---
Author Organization Unknown ENCOUNTERS Encounter Performer Location Date Diagnosis Diagnosis Status Pre Admit [address] [place] [address] [phone] Emergency [address] [place] [address] [id number] Pre Admit [address] [place] [address] [phone] Emergency [address] [place] [address] [id number] [facility] [address] [place] [address] [phone] [facility] [address] [place] [address] [phone] Emergency [address] [place] [address] [phone] *Note: Encounters from your own facility or health system may be excluded. Allergies, Adverse Reactions, Alerts Allergen Type Severity Identification Date Medications Name Date Quantity Days Supplied GPI Number
--- OUTSIDE RECORDS SUMMARY | 2025-06-26 10:30 | XMS_ITS | Encounter Summary ---
Author Organization Healthcare Address [address] [place] [address] Care Team Providers Care Business Development Professional Name Role Phone Lee Collier MD Primary Care Provider [phone] Lee Collier MD Unavailable [phone] Debbie Medina MD Primary Care Provider [phone] Binta Jones Unavailable Unavailable Camille Gonzalez [employer] Unavailable UnavailEmma Westbrook Unavailable Unavailable Evelyn Mason [employer] Unavailable Unavailable Kristopher Benitez RN Unavailable Unavailable Bekah Flores RN Unavailable Unavailable Encounter Details Date Type Department Care Team (Late st Contact Info) Description 09/25/2024 Orders Only External Location [address] [place] [phone] Provider, External Social History Tobacco Use Types Packs/Day Years Used Date Smoking Tobacco: Never Passive Smoke Exposure: Never Smokeless Tobacco: Never Alcohol Use Standard Drinks/Week Comments Never 0 (1 standard drink = 0.6 oz pur e alcohol) Humiliation, Afraid, Rape, and Kick questionnair e Answer Date Recorded Within the last year, have y ou been afraid of your partner or ex-partner? No 07/03/2024 Within the last year, have y ou been humiliated or emotionally abused in other ways by your partner or ex-partner? No Within the last year, have y ou been kicked, hit, slapped, or otherwise physically hurt by your partner or ex-partner? No 07/03/2024 Within the last year, have y ou been raped or forced to have any kind of sexual activity by your partner or ex-partner? No 07/03/2024 Social Connection and Isolation Panel Answer Date Recorded Frequency of Communication w ith Friends and Family Not on file 10/16/2022 How often do you get togethe r with friends or relatives? Never 10/16/2022 How often do you attend chur ch or yazidi services? More than 4 times per year 10/16/2022 Do you belong to any clubs o r organizations such as islam groups, unions, fraternal or athletic groups, or [...] Date Recorded Patient Health Questionnaire-2 Score 1 07/02/2024 Exercise Vital Sign Answer Date Recorde d On average, how many days pe r week do you engage in moderate to strenuous exercise (like a brisk walk)? 0 days 10/16/2022 On average, how many minutes do you engage in exercise at this level? 0 min 10/16/2022 Hunger Vital Sign Answer Date Recorded Within the past 12 months, y ou worried that your food would run out before you got the money to buy more. Never true 07/03/19 25 Within the past 12 months, t he food you bought just didn't last and you didn't have money to get more. Never true 07/03/2024 PRAPARE - Transportation Answer Date Re corded In the past 12 months, has l ack of transportation kept you from medical appointments or from getting medications? No 08/2024 In the past 12 months, has l ack of transportation kept you from meetings, work, or from getting things needed for daily living? No 07/03/2024 Housing Stability Vital Sign Answer Andrew e Recorded In the last 12 months, was t here a time when you were not able to pay the mortgage or rent on time? No 03/20/2024 In the last 12 months, how many places have you lived? 1 03/20/2024 In the last 12 months, was t here a time when you did not have a steady place to sleep or slept in a assisted (including now)? No 03/20/2024 PHQ-9 Answer Date Recorded Patient Health Questionnaire-9 Score 2 07/02/2024 Housing Stability Vital Sign Answer Andrew e Recorded In the last 12 months, was t here a time when you were not able to pay the mortgage or rent on time? No 09/28/2024 In the past 12 months, how m any times have you moved where you were living? 1 09/28/2024 At any time in the past 12 m [facility], were you homeless or living in a assisted (including now)? No 09/28/2024 CAGE ASSESSMENT Answer Date Recorded Cage unable to access Not on file 09/25/2024 Cage max number of drinks Not on file 2024 Cage Beverages a week Not on file 09/25/2024 Have you ever felt you should CUT down on your d rinking? 0 09/25/2024 Have you been ANNOYED by people criticizing your drinking? 0 09/25/2024 Have you felt GUILTY about your drinking? 0 09/25/2024 Have you had a drink first t july in the morning (E[employer] PASTRY) to steady your nerves or to get rid of a hangover? 0 09/25/2024 CAGE Questionnaire Score 0 025 Utilities Answer Date Recorded In the past 12 months has th e electric, gas, oil, or water company threatened to shut off services in your home? No 07/03/2024 PHQ-2A Answer Date Recorded Patient Health Questionnaire-2 Score 0 03/22/2023 Sex and Gender Information Value Date Recorded Sex Assigned at Male 10/10/2024 1:42 PM EDT Legal Sex Male 6:11 PM EDT Gender Identity Not on file Sexual Orientation Not on file documented as of this encounter Plan of Treatment Upcoming Encounters Date Type Department Care Team ([facility] st Contact Info) Description 07/05/2025 3:00 PM EST Clinical Support [facility] Therapy [facility] [address] [place] [address] 07/05/2025 3:30 PM EST Office Visit [facility] [address] [address] Vaishnavi Almaraz MD [address] [facility] [address] [place] [phone] 09/13/2025 10:30 AM EDT Clinical Support [facility] [address] [address] 09/13/2025 11:00 AM EDT Office Visit [facility] [address] [place] [address] [place] [address] Vaishnavi Almaraz MD [address] [facility] [address] [place] [phone] documented as of this encounter Procedures Procedure Name Priority Date/Time Associated Diagnosis Comments POC ULTRASOUND 09/25/2024 documented in this encounter Results * POC Imaging (09/25/2024) Anatomical Region Laterality Modality Pelvis Other 09/25/2024 us External Provider IMG POINT OF CARE ULTRASOUND F inal Result documented in this encounter Visit Diagnoses Not on filedocumented in this encounter Additional Health Concerns Assessment Noted Time PHQ-9 Depression Total Score: 2 07/02/19 25 2:13 PM EST A fall risk assessment has been complete d for the patient 07/02/2024 2:14 PM EST A Body Mass Index follow-up plan has been documented for the patient 09/29/2024 4:14 PM EDT documented as of this encounter Care Teams Business Development Professional Relationship Specialty Start Date End Date Lee Collier MD [address] [place] [phone] PCP - General Internal Medicine 10/18/23 09/27/24 Debbie Medina MD [address] [facility] [address] [place] [address] PCP - General 09/28/24 Lee Collier MD [address] [place] [phone] Internal Medicine 10/18/23 Binta Jones Fuel Storage Technician Talent Sourcing Specialist 09/28/24 09/28/24 Camille Gonzalez LPN [facility] None TCM Nurse 09/30/24 11/12/24 Emma Abdullahi Community Health Worker 10/01/24 10/26/24 Evelyn Mason LPN [employer] [place] [address] None TCM Nurse 02/01/25 03/03/25 Kristopher Benitez, RN None None Registered Nurse Hematology and Oncology 03/15/25 Bekah Flores, RN None None Registered Nurse 05/25/25 documented as of this encounter
--- OUTSIDE RECORDS SUMMARY | 2025-06-26 10:30 | XMS_ITS | Clinical Summary ---
Author Organization [facility] Address [address] [place] [address] Care Team Providers Care Arbitrator Name Role Phone Lee Collier MD Unavailable [phone] Debbie Medina MD Primary Care Provider + [phone] Kristopher Benitez RN Unavailable Unavailable Bekah Flores RN Unavailable Unavailable Allergies No known active allergies Medications HYDROcodone-acetami nophen (Cochrane) 10-325 MG tablet Take 1 tablet by mouth 4 times a day as needed. Active empagliflozin (Jardiance) 10 MG Take 1 tablet by mouth daily. 30 tablet 3 01/23/20 25 Active ferrous sulfate 324 (65 Fe) MG EC tablet TAKE 1 TABLET BY MOUTH EVERY MORNING WITH BREAKFAST. DO NOT CHEW,CRUSH, OR SPLIT 01/14/20 25 Active rosuvastatin (Crestor) 10 MG tablet Take 1 tablet by mouth nightly. 90 tablet 3 02/13/20 25 Active Momelotinib Dihydrochloride 200 MG tabletIndications:M yeloproliferative disorder (CMS/HCC) Take 200 mg by mouth daily. 30 tablet 1 04/02/20 25 Active naloxone (Narcan) 4 mg/0.1 mL nasal spray 1. Give 1 spray in nostril for no/slow breathing or cannot wake after opioid use 2. Call 911 3. Repeat in other nostril if symptoms continue 1 each 06/17/20 25 Active bismuth subsalicylate (Pepto Bismol) 262 MG chewable tablet Chew 1 tablet as needed for indigestion. Active bumetanide (Bumex) 2 MG tablet Take 1 tablet by mouth daily. 30 tablet 5 06/25/20 Active ciprofloxacin (Cipro) 500 MG tabletIndications:S BP (spontaneous bacterial peritonitis) Take 1 tablet by mouth daily. 30 tablet 5 06/26/20 Active metoprolol succinate XL (Toprol-XL) 25 MG 24 hr tablet Take 1 tablet by mouth daily. Do not crush or chew. 30 tablet 5 06/26/20 Active potassium chloride CR (K-Tab) 20 MEQ ER tablet Take 1 tablet by mouth daily. Do not crush, chew, or split. 30 tablet 2 06/25/20 25 Active gabapentin (Neurontin) 300 MG capsule Take 1 capsule by mouth 3 times a day. 06/25/20 Active bumetanide (Bumex) 1 MG tablet Take 1 tablet by mouth daily. 30 tablet 10/11/19 Discontinu ed(Entered in Error) gabapentin (Neurontin) 800 MG tablet Take 0.5 tablets by mouth in the morning and 0.5 tablets before bedtime. 10/11/19 025 Discontinu ed(Stop Taking at Discharge) ciprofloxacin (Cipro) 500 MG tabletIndications:S BP (spontaneous bacterial peritonitis) Take 1 tablet by mouth daily for 10 days. 10 tablet 05/28/20 25 025 gabapentin (Neurontin) 300 MG capsule Take 1 capsule by mouth 3 times a day. 90 capsule 05/28/20 025 Discontinu ed(Entered in Error) amoxicillin-clavula sis (Augmentin) 875-125 MG tabletIndications:O dontogenic Infection Take 1 tablet by mouth every 12 hours for 7 doses. 7 tablet 05/28/20 25 025 gabapentin (Neurontin) 800 MG tablet Take 1 tablet by mouth 4 times a day. Discontinu ed(Stop Taking at Discharge) Active Problems Problem Noted Date Diagnosed Date Heart failure 06/17/2025 SBP (spontaneous bacterial peritonitis) 05/20/20 Coronary artery disease invo lving venetie ira coronary artery of venetie ira heart without angina pectoris 03/18/2025 Generalized weakness 01/20/2025 Chronic kidney disease, stage 4 (severe) 025 Chronic pulmonary edema 01/19/2025 Edema, unspecified 01/19/2025 Nonrheumatic mitral (valve) insufficiency 2024 Mild cognitive impairment 01/13/2025 Spontaneous bacterial peritonitis 06/04/2024 Overview (10/06/2024): On ppx Cipro Ascites 03/28/2024 Overview (04/07/2024): Large volume ascites seen on CT 03/27 Patient denies hx of liver failure 03/30: Para in IR 8.7L , fluid studies (-) SBP. D/c'd Rocephin Liver ultrasound negative for cirrhosis, moderate ascites; will likely require repeat paracentesis GI consulted 04/04: recommends repeat paracentesis with the following studies to better evaluate etiology of ascites: total cell count, culture, albumin, total protein, LDH, glucose - If develops fever, increasing WBC count, and worsening abdominal pain, we recommend a low threshold to start broad spectrum antibiotics for coverage of possible peritonitis. - Following fluid for PMN count & if continues to be elevated would consider treatment. Recurrent ascites: alberto 50 mg daily w/ continue lasix 20 mg daily. If tolerates this dose can increase up to 40 lasix and 100 spirolactone. Duplex US of the liver to definitively rule out budd chiari as not specifically mentioned on US abdomens completed (ordered). IR consulted 04/05 Diagnostic and therapeutic paracentesis w/ 7.7L per IR on 04/07 Class 1 obesity in adult 03/24/2024 Paroxysmal atrial fibrillation 03/22/2024 Overview (04/05/2024): Acute onset A.fib w/ RVR post op Controlled with amio drip. Converted. Transitioned to metoprolol 12.5 mb BID started 03/24; titrate as needed for rate control. (Controlled). Major laceration of spleen 03/18/2024 Overview (04/07/2024): Scan concerning for sentinel bleed to spleen - 03/18: IR embolization - 03/18: splenectomy - 03/19: return to OR for bleeding - 03/20 relook lap, closed - Will need to remove ritchie ~04/03 if appropriate; Will plan to remove ritchie post para and apply steri strips on 04/08 08/02 distention - Vaccines given on 03/24; will need additional vaccines in 8 weeks (~05/19) Thrombocytopenia, unspecified 03/18/2024 Overview (04/05/2024): Baseline thrombocytopenia, 20-30 Holding DVT ppx Monitor/trend Gastro-esophageal reflux disease without esophag itis 03/18/2024 Spondylosis without myelopat hy or radiculopathy, lumbar region 01/01/2024 Myeloproliferative disorder 03/22/2023 Overview (10/06/2024 1:32 AM EDT): Known history. 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 - Restarted Momelotinib on 03/25 (taking home supply); duration of response may take weeks. CBC w/ diff. Daily. Other cirrhosis of liver 12/10/2022 Chronic prescription opiate use 11/14/2020 Chronic back pain 08/23/2020 Lumbosacral radiculopathy 08/23/2020 ACC/AHA stage C chronic systolic heart failure Mixed dyslipidemia Resolved Problems Problem Noted Date Diagnosed Date Resolved Date Shortness of breath 06/22/2025 06/25/20 HFrEF (heart failure with re duced ejection fraction) 01/19/2025 03/18/2025 Rapid heart rate 10/08/2024 03/18/2025 SVT (supraventricular tachycardia) 10/05/2024 03/18/2025 Acute exacerbation of chronic heart failure 09/25/2024 10/06/2024 Encounter for evaluation of ascites 07/03/2024 10/05/2024 Melena 07/03/2024 10/05/2024 Dysuria 07/03/2024 10/05/2024 Elevated alkaline phosphatase level 07/03/2024 10/05/2024 Bilateral lower extremity edema 07/03/2024 10/05/2024 Acquired absence of spleen 07/03/2024 0 10/06/2024 Splenic vein thrombosis 03/28/202403/01 Overview (04/05/2024): Noted on CT 03/27 Heparin drip deferred due to thombocytopenia Holding DVT ppx in setting of thrombocytopenia Chronic diastolic heart failure 03/26/2024 03/18/2025 Overview (10/06/2024): HFrEF 30-35% Hyponatremia 03/26/2024 10/06/2024 Overview (04/05/2024): Likely secondary to comorbidities; Cardiac diet w/ low Na and diuresis. 1000 ml fluid restriction Hypocalcemia 03/24/2024 10/05/2024 Overview (04/05/2024): Monitor/trend Replete as needed Acute kidney failure, unspecified 03/23/2024 03/21/2025 Overview (10/06/2024): Non-ST elevated myocardial infarction 03/22/2024 03/18/2025 Overview (04/05/2024): Cardiology consulted 03/22 for elevated troponin's, HFrEF 25-30%, NSTEMI. Likely related to acute stress. Not able to tolerate GDMT given lower BP, can start as tolerated. Patient would benefit from non-emergent ischemic evaluation, given recent surgery would defer to outpatient if patient remains free of chest pain. Acute respiratory failure 03/22/2024 Overview (03/26/2024): Secondary to hemorrhagic shock Now extubated and improving. Continue to monitor 2L NC Ra Splenomegaly 03/18/2024 04/05/2024 Overview (04/05/2024): Known history of massive splenomegaly Leukocytosis 03/18/2024 03/24/2024 Overview (03/24/2024): WBC 129.95, Baseline near 25. CTM Leukemia vs blastic reaction Heme-Oncology consulted - Hyperleukocytosis was likely secondary to severe leukemoid reaction given the stress and severity of his acute illness Resolved Anemia, unspecified 03/18/2024 10/07/19 Overview (04/05/2024): Acute blood loss anemia s/t to intraabdominal bleed Hgb 7.9, baseline 11 based on chart review Monitor/trend H&H stable, HDS Transfuse if Hgb < 7.0 if needed Fall 03/18/2024 10/05/2024 Overview (03/24/2024): Patient reports feeling weaker over last few days Fall from standing onto abdomen at home Hypotensive at arrival - Admit SGT ICU 03/18 - Transferred w/progressive orders on 03/24 Hemorrhagic shock 03/18/2024 03/24/2024 Overview (03/24/2024): S/t splenic laceration Hypotension after fall from standing Positive FAST 03/18 IR embolization 03/18 ex-lap On pressors, 2 rounds of MTP TEG based correction Resolved Lactic acidosis 03/18/2024 03/24/2024 Overview (03/24/2024): Due to acute shock in the setting of hemorrhage from splenic laceration 2 rounds of MTP, levophed Resolved Occlusion and stenosis of bi lateral carotid arteries 03/18/2024 03/18/2025 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 Muscle spasm 10/01/2022 10/05/2024 Assessment & Plan (10/01/2022 3:46 PM EDT): -Robaxin prescribed for muscle pain to his back Idiopathic acute pancreatitis 10/01/2022 10/06/2024 Assessment & Plan (10/01/2022 3:45 PM EDT): -Will reach out to patient concerning lab results and will make further adjust to treatment plan at that time if warranted. Encounters Date Type Department Care Team Description 06/20/2025 Travel 06/19/2025 Travel 06/18/2025 Telephone [facility] [address] [place] [address] Martha Hassan, optical engineering technician TEST CLAIM 06/17/2025 4:17 PM EST - 06/25/2025 5:20 PM EST Hospital Encounter [facility] [address] [place] [address] Bill Hamilton MD Bronner, Jonathan M, MD Sorour, Nouran A, MD Brunmeier, Ashley M, MD Shortness of breath (Primary Dx); Other ascites; SBP (spontaneous bacterial peritonitis) Discharge Disposition: Home or Self Care 06/17/2025 Travel 06/11/2025 Patient Outreach POPULATION [address], [address] [address] Bekah Flores RN HRCM 06/10/2025 Patient Outreach POPULATION [address], [address] [address] Bekah Flores RN HRCM 06/09/2025 Telephone [facility] Hematology/BMT and Cellular Therapy Program [address] [facility] [place] [address] Vaishnavi Almaraz MD 06/08/2025 Patient Outreach POPULATION [address], [address] [address] Bekah Flores, RN HRCM 06/04/2025 Patient Outreach POPULATION [address], [address] [address] Bekah Flores, RN [facility] 06/02/2025 Patient Outreach [place]ULATION [place] [address] [address], [address] [place] [address] Bekah Flores, DEANNA TCM 05/31/2025 Patient Outreach POPULATION [address] Katey Santos, [facility] [address] [place] [address] Bekah Flores, DEANNA [facility] 05/25/2025 2:00 PM EST Office Visit [facility] [address] [place] [address] Olga Nolasco Caries (Primary Dx) 05/25/2025 Travel 05/25/2025 Referral Triage POPULATION [address] Katey Santos, [address] [address] Bekah Flores RN 05/24/2025 Patient Outreach POPULATION [address] Santos, [address] [address] Yue Castano [facility] 05/21/2025 Travel 05/21/2025 Patient Outreach POPULATION [address] [place], [address] [address] Binta Jones Link 05/20/2025 10:51 AM EST - 05/28/2025 11:26 AM EST Hospital Encounter [facility] [address] [place] [address] Susanne Duke MD Gerrard, Miranda E, MD Ramani, Ashok A, MD SBP (spontaneous bacterial peritonitis) (Primary Dx) Discharge Disposition: Home or Self Care 05/20/2025 Travel 05/20/2025 Results Follow-Up [facility] Interventional Radiology [address] [place] [address] Mary Cardona APRN 05/20/2025 Telephone [facility] [address] [place] [address] Elvira Rubio RN 05/18/2025 11:33 AM EST - 05/18/2025 11:59 PM EST Hospital Encounter [facility] [address] [place] [address] Candido Odonnell, DEANNA Other ascites (Primary Dx); Abdominal ascites Discharge Disposition: Home or Self Care 05/18/2025 Travel 05/12/2025 Telephone [facility] [place] [address] [facility] [place], [address] [place] [address] Sherly Jarvis RN 05/10/2025 Abstract [facility] hull drafter Faculty [facility] [address] [facility] [address] [place] [address] Don, DEANNA Judd 05/07/2025 Telephone Medical Office Building Lab [address] [place] [address] Tyler Buenrostro DO HCN - Patient Message 05/04/2025 Telephone [facility] hull drafter [facility] [address] [place] [address] Surgeon Wai, 04/27/2025 Telephone [facility] hull drafter Faculty [facility] [address] [place] [address] Surgeon Wai, 04/26/2025 9:00 AM EDT Evaluation [facility] hull drafter [facility] [address] [place] [address] [address] [place] [address] Waqas Bowles, LIBIA Cardiac abnormality (Primary Dx); Subacute liver failure without hepatic coma; Caries 04/26/2025 Travel 04/23/2025 9:00 AM EDT Clinical Support [facility]ology/BMT [facility] Cellular Therapy Program [address] [place] [address] Masood Norman, DEANNA Myeloproliferative disorder (CMS/HCC) 04/23/2025 Travel 04/20/2025 Community [facility] [address] [place] [address] Casterline, Christopher C, DMD Extraction of tooth needed (Primary Dx) 04/15/2025 Orders Only [facility] Hematology/BMT and Cellular Therapy Program [address] [place] [address] Kristopher Benitez RN Myeloproliferative disorder ([facility]) (Primary Dx) 04/15/2025 Orders Only [facility] Hematology/BMT and Cellular Therapy Program [address] [address] Kristopher Benitez RN Myeloproliferative disorder ([facility]) (Primary Dx) 04/13/2025 9:30 AM EDT Office Visit [facility] [address] [place] [address] Care, Dentistry Urgent Encounter for dental examination (Primary Dx) 04/13/2025 Travel 04/12/2025 Community Orders Community Practice [address] [place] [address] Lenin Bright, DMD Caries (Primary Dx); Periodontitis 04/01/2025 Refill [facility] H[facility]ology/BMT and Cellular Therapy Program [address] [facility], [address] [place] [address] Vaishnavi Almaraz MD Myeloproliferative disorder ([facility]) (Primary Dx) from Last 3 Months Immunizations Immunization Administration Dates Next Due Hib (PRP-T) 03/24/2024 Influenza, high-dose, quadrivalent 07/09/2023 Influenza, trivalent, adjuvanted 05/23/2024 Meningococcal B, Omv 03/24/2024 Meningococcal MCV4O 03/24/2024 Moderna Covid-19 Vaccine 12y +, Edwar Protein, Preservative free 07/09/2023 [facility] COVID-19 Vac cine (Purple Cap) 12+ 07/12/2021,10/23/2020,10/02/2020 Pneumococcal 20-anthony Conj Vaccine 03/24/2024,11/30 Family History Medical History Relation Name Comments No Known Problems Daughter No Known Problems Father No Known Problems Mother Relation Name Status Comments Daughter Alive Father Mother Social History Tobacco Use Types Packs/Day Years Used Date Smoking Tobacco: Never Passive Smoke Exposure: Never Smokeless Tobacco: Never Tobacco Cessation:Counseling Given: Not Answered Alcohol Use Standard Drinks/Week Comments Never 0 [...] any clubs o r organizations such as sikhism groups, unions, fraternal or athletic groups, or [...] time in the past 12 [facility], were you homeless or living in a prison (including now)? No 06/18/2025 [facility] Utilities Answer Date Recorded In the [...] drink first t july in the morning (EYE-AIR VALUE TESTER) to steady your nerves or to get rid of a hangover? 0 01/19/2025 CAGE Questionnaire Score 0 025 PHQ-2A Answer Date Recorded Patient Health Questionnaire-2 Score 0 03/22/2023 Sex and Gender Information Value Date Recorded Sex Assigned at Male 10/10/2024 1:42 PM EDT Legal Sex Male 6:11 PM EDT Gender Identity Not on file Sexual Orientation Not on file Last Filed Vital Signs Vital Sign Reading [...] Mass Index 29.17 06/17/2025 4:27 PM EST Plan of Treatment Upcoming Encounters Date Type Department Care Team ([facility] st Contact Info) Description 07/05/2025 3:00 PM EST Clinical Support [facility]ology/BMT and Cellular Therapy Program [address] [place] [phone] 07/05/2025 3:30 PM EST Office Visit [facility]ology/BMT and Cellular Therapy Program [address] [address] Vaishnavi Almaraz MD [address] [facility] [address] [place] [address] 09/13/2025 10:30 AM EDT Clinical Support [facility]ology/BMT and Cellular Therapy Program [address] [address] 09/13/2025 11:00 AM EDT Office Visit [facility] Cellular Therapy Program [address] [address] Vaishnavi Almaraz MD 800 [facility] [address] [place] [address] Health Maintenance Due Date Last Done Comments Dental Prophylaxis 1950 Dental X-Ray: Bitewings 1950 [facility]-Infant/Child/Adol SDOH Screenings 1950 [facility]-HIB Vaccines (1 of 1 - Risk 1-dose series) 04/09/1951 03/24/2024 [facility]-DTaP,Tdap,and Td Vaccines (1 - Tdap) 1970 [facility]-Hepatitis A Vaccines (1 of 2 - Risk 2-dose series) 1970 [facility]-Zoster Vaccines (1 of 2) 1970 CT Colonography 01/08/1996 Colonoscopy 01/08/1996 FIT-DNA 01/08/1996 FIT 01/08/1996 FOBT 01/08/1996 Sigmoidoscopy 01/08/1996 [facility]-Colorectal Cancer Screening 01/08/1996 [facility]-RSV Vaccine: 60+ Years or (1 - Risk 50-74 years 1-dose series) 2001 [facility]-Medicare Annual Wellness (AWV) 07/09/2024 07/09/2023 [id number] Vaccine ( season) 2025 05/23/2024, 07/09/2023, 07/12/2021, Additional history exists [facility]-Influenza Vaccine (#1) 2025 05/23/2024, [facility]-Diabetes: Hemoglobin A1C 09/26/2025 09/26/2024, 10/16/2022 Dental Oral Exam 10/26/2025 04/26/2025 [facility]- SDOH Screenings 12/17/2025 [facility]-Adult SDOH Screenings 12/17/2025 06/18/2025 [facility]-Depression Screening 02/05/2026 02/05/2025, 08/01/2025 Dental X-Ray: Full Mouth 04/27/2028 04/26/2025, 03/31 [facility]-Pneumococcal Vaccine: 50+ Years Completed 03/24/2024, 12/18/2022 [facility]-Hepatitis C Screening Completed 2024, 04/05/2024, 10/01/2022 [facility]-Obesity Intervention Completed 025, 05/25/2025, 05/20/2025, Additional history exists HPV Vaccines (No Doses Required) Completed [facility]-IPV Vaccines Aged Out No longer e ligible based on patient's age to complete this topic [facility]-Rotavirus Vaccines Aged Out No lo nger eligible based on patient's age to complete this topic Medical Devices Implanted Type Area Change Management Consultant Device Identifier Shelf Expiration Date Model / Serial / Lot Plug Amplatzer Vasc Ii 10 - [id number] Implanted:Qty: 1 on 03/18/2024 by Génesis Boyd MD at [facility]-[id number] 05/30/2028 [id number] / / [id number] Description:DEPLOYED INTO SP LENIC ARTERY Vip Vascular Closure Device 6 Fr - [id number] Implanted:Qty: 1 on 03/18/2024 by Génesis Boyd MD at [facility] Sinch-[id number] 08/29/2024 [id number] / / [id number] Procedures Procedure Name Priority Date/Time Associated Diagnosis Comments POTASSIUM, WHOLE BLOOD Timed 06/25/2025 4:23 AM EST MAGNESIUM, PLASMA Timed 06/25/2025 4:2 3 AM EST BASIC METABOLIC PANEL, PLASMA Timed 06/25/2025 4:23 AM EST CBC W/O DIFFERENTIAL Routine 06/25/2025 4:23 AM EST PHOSPHORUS, PLASMA Routine 06/25/2025 4: 23 AM EST HEPATIC FUNCTION PANEL Routine 06/25/2025 4:23 AM EST POTASSIUM, WHOLE BLOOD [...] 11:56 PM EST MAGNESIUM, PLASMA Timed 06/23/2025 11:56 PM EST BASIC METABOLIC PANEL, PLASMA Timed [...] REFLEX MICROSCOPIC Routine 06/23/2025 12:55 AM EST CBC W/O DIFFERENTIAL Routine 06/23/2025 12:05 AM EST POTASSIUM, WHOLE BLOOD Timed 06/23/2025 12:05 AM EST MAGNESIUM, PLASMA Timed 06/23/2025 12:05 AM EST BASIC METABOLIC PANEL, PLASMA Timed [...] OXYGEN THERAPY Routine 06/22/2025 8:00 AM EST CBC W/O DIFFERENTIAL Routine 06/22/2025 12:10 AM EST PHOSPHORUS, PLASMA Routine 06/22/2025 12:10 AM EST POTASSIUM, WHOLE BLOOD Timed 06/22/2025 12:10 AM EST MAGNESIUM, PLASMA Timed 06/22/2025 12:10 AM EST BASIC METABOLIC PANEL, PLASMA Timed 06/22/2025 12:10 AM EST LACTATE, VENOUS Routine 06/22/2025 12:10 AM EST HEPATIC FUNCTION PANEL Routine 06/22/2025 12:10 AM EST OXYGEN THERAPY Routine 06/21/2025 8:00 PM EST EXTRA TUBE LIGHT GREEN TOP Routine 06/21/2025 4:14 PM EST EXTRA TUBES Routine 06/21/2025 4:14 PM EST POTASSIUM, WHOLE BLOOD Routine 06/21/2025 4:14 PM EST MAGNESIUM, PLASMA Timed 06/21/2025 4:1 4 PM EST BASIC METABOLIC PANEL, PLASMA Timed 06/21/2025 4:14 PM EST MAGNESIUM, PLASMA Timed 06/21/2025 12:09 PM EST BASIC METABOLIC PANEL, PLASMA Timed 06/21/2025 12:09 PM EST OXYGEN THERAPY Routine 06/21/2025 8:00 AM EST MAGNESIUM, PLASMA Timed 06/21/2025 7:2 1 AM EST CBC W/O DIFFERENTIAL Timed 06/21/2025 7:21 AM EST RENAL FUNCTION PANEL, PLASMA Timed 06/21/2025 7:21 AM EST LACTATE, VENOUS Routine 06/21/2025 5:36 AM EST ECG ADULT Routine 06/20/2025 11:32 PM EST MAGNESIUM, PLASMA Timed 06/20/2025 9:0 0 PM EST BASIC METABOLIC PANEL, PLASMA Timed 06/20/2025 9:00 PM EST HEPATIC FUNCTION PANEL Routine 06/20/2025 9:00 PM EST PHOSPHORUS, PLASMA Timed 06/20/2025 9: 00 PM EST CBC W/O DIFFERENTIAL Timed 06/20/2025 9:00 PM EST OXYGEN THERAPY Routine 06/20/2025 8:00 PM EST POTASSIUM, PLASMA Routine 06/20/2025 5:0 6 PM EST C-REACTIVE PROTEIN, PLASMA Add-On 06/20/2025 5:06 PM EST PROCALCITONIN, PLASMA Add-On 06/20/2025 5:06 PM EST MAGNESIUM, PLASMA Timed 06/20/2025 5:0 6 PM EST BASIC METABOLIC PANEL, PLASMA Timed 06/20/2025 5:06 PM EST PHOSPHORUS, PLASMA Timed 06/20/2025 5: 06 PM EST CBC W/O DIFFERENTIAL Timed 06/20/2025 5:06 PM EST EXTRA TUBE LAVENDER TOP Routine 06/20/2025 10:12 AM EST EXTRA TUBES Routine 06/20/2025 10:12 AM EST MAGNESIUM, PLASMA Timed 06/20/2025 10:12 AM EST BASIC METABOLIC PANEL, PLASMA Timed 06/20/2025 10:12 AM EST OXYGEN THERAPY Routine 06/20/2025 8:00 AM EST ECHO, ADULT TRANSTHORACIC LIMITED STAT 06/20/2025 7:56 AM EST HEPATIC FUNCTION PANEL Routine 06/20/2025 12:03 AM EST PHOSPHORUS, PLASMA Timed 06/20/2025 12:03 AM EST MAGNESIUM, PLASMA Timed 06/20/2025 12:03 AM EST CBC W/O DIFFERENTIAL Timed 06/20/2025 12:03 AM EST BASIC METABOLIC PANEL, [...] UNSOLICITED RESULTS Routine 06/19/2025 4:42 PM EST PHOSPHORUS, PLASMA Timed 06/19/2025 4: 13 PM EST MAGNESIUM, PLASMA Timed 06/19/2025 4:1 3 PM EST CBC W/O DIFFERENTIAL Timed 06/19/2025 4:13 PM EST BASIC METABOLIC PANEL, PLASMA Timed 06/19/2025 4:13 PM EST US RENAL COMPLETE STAT 06/19/2025 3:1 9 PM EST POCT GLUCOSE METER UNSOLICITED RESULTS Routine 06/19/2025 12:59 PM EST LACTATE, VENOUS Routine 06/19/2025 11:05 AM EST OXYGEN THERAPY Routine 06/19/2025 8:00 AM EST HEPATIC FUNCTION PANEL Add-On 06/19/2025 4:41 AM EST CBC W/O DIFFERENTIAL Routine 06/19/2025 4:41 AM EST PHOSPHORUS, PLASMA Routine 06/19/2025 4: 41 AM EST MAGNESIUM, PLASMA Routine 06/19/2025 4:4 1 AM EST BASIC METABOLIC PANEL, PLASMA Routine 06/19/2025 4:41 AM EST SODIUM, URINE, RANDOM Routine 06/18/2025 10:30 PM EST UREA NITROGEN, RANDOM URINE Routine 06/18/2025 10:30 PM EST CREATININE, RANDOM URINE Routine 06/18/2025 10:30 PM EST OXYGEN THERAPY Routine 06/18/2025 8:00 PM EST MAGNESIUM, PLASMA Routine 06/18/2025 5:2 1 PM EST BASIC METABOLIC PANEL, PLASMA Routine 06/18/2025 5:21 PM EST ALBUMIN, PERITONEAL FLUID Routine 06/18/2025 9:51 AM EST OXYGEN THERAPY Routine 06/18/2025 8:00 AM EST POCT GLUCOSE METER UNSOLICITED RESULTS Routine 06/18/2025 6:51 AM EST FREE HEMOGLOBIN,PLASMA Routine 06/18/2025 3:36 AM EST CBC W/O DIFFERENTIAL Routine 06/18/2025 3:36 AM EST PHOSPHORUS, PLASMA Routine 06/18/2025 3: 36 AM EST MAGNESIUM, PLASMA Routine 06/18/2025 3:3 6 AM EST BASIC METABOLIC PANEL, PLASMA Routine 06/18/2025 3:36 AM EST LACTATE, VENOUS Routine 06/18/2025 1:57 AM EST URINALYSIS, DIPSTICK STAT 06/18/2025 1:56 AM EST OXYGEN THERAPY Routine 06/17/2025 11:44 PM EST OXYGEN THERAPY Routine 06/17/2025 11:44 PM EST OXYGEN THERAPY Routine 06/17/2025 11:44 PM EST BODY FLUID, CYTOSPIN, PATHOLOGIST INTERPRETATION STAT 06/17/2025 11:15 PM EST BODY FLUID CELL COUNT W/ MANUAL DIFFERENTIAL STAT 06/17/2025 11:15 PM EST AMYLASE, PERITONEAL FLUID STAT 06/17/2025 11:14 PM EST LACTATE DEHYDROGENASE, PERITONEAL FLUID STAT 06/17/2025 11:14 PM EST GLUCOSE, PERITONEAL FLUID STAT 06/17/2025 11:14 PM EST TOTAL PROTEIN, PERITONEAL FLUID STAT 06/17/2025 11:14 PM EST BODY FLUID CULTURE AND GRAM STAIN STAT 06/17/2025 11:14 PM EST ECG ADULT STAT 06/17/2025 10:23 PM EST XR CHEST 1 VIEW STAT 06/17/2025 5:50 PM EST MORPHOLOGY STAT 06/17/2025 5:16 PM EST MANUAL DIFFERENTIAL STAT 06/17/2025 5 :16 PM EST EXTRA TUBE GOLD TOP Routine 06/17/2025 5 :16 PM EST EXTRA TUBES Routine 06/17/2025 5:16 PM EST HEPATITIS C ANTIBODY - ED W/REFLEX TO HCV QUANT PCR STAT 06/17/2025 5:16 PM EST N-TERMINAL PROBNP, PLASMA STAT 06/17/2025 5:16 PM EST COMPREHENSIVE METABOLIC PANEL, PLASMA STAT 06/17/2025 5:16 PM EST CBC WITH AUTO DIFFERENTIAL STAT 06/17/2025 5:16 PM EST ECG ADULT STAT 06/17/2025 4:56 PM EST HC ABDOMINAL PARACENTESIS DIAGNOSIS/THERAPY W IMAGING GUIDANCE Routine 06/17/2025 4:16 PM EST SD ABDOM PARACENTESIS DX/THER W IMAGING GUIDANCE Routine 06/17/2025 4:16 PM EST POCT GLUCOSE METER UNSOLICITED RESULTS Routine 05/28/2025 10:23 AM EST POCT GLUCOSE METER UNSOLICITED RESULTS Routine 05/28/2025 7:56 AM EST MORPHOLOGY Routine 05/28/2025 4:20 AM EST MANUAL DIFFERENTIAL Routine 05/28/2025 4 :20 AM EST URIC ACID, PLASMA Routine 05/28/2025 4:2 0 AM EST LACTATE DEHYDROGENASE, PLASMA Routine 05/28/2025 4:20 AM EST SEDIMENTATION RATE, AUTOMATED Routine 05/28/2025 4:20 AM EST C-REACTIVE PROTEIN, PLASMA Routine 05/28/2025 4:20 AM EST PROCALCITONIN, PLASMA Routine 05/28/2025 4:20 AM EST HEPATIC FUNCTION PANEL Routine 05/28/2025 4:20 AM EST BASIC METABOLIC PANEL, PLASMA Routine 05/28/2025 4:20 AM EST CBC WITH AUTO DIFFERENTIAL Routine 05/28/2025 4:20 AM EST MAGNESIUM, PLASMA Routine 05/28/2025 4:2 0 AM EST PHOSPHORUS, PLASMA Routine 05/28/2025 4: 20 AM EST URIC ACID, PLASMA Routine 05/27/2025 2:4 5 AM EST LACTATE DEHYDROGENASE, PLASMA Routine 05/27/2025 2:45 AM EST SEDIMENTATION RATE, AUTOMATED Routine 05/27/2025 2:45 AM EST C-REACTIVE PROTEIN, PLASMA Routine 05/27/2025 2:45 AM EST PROCALCITONIN, PLASMA Routine 05/27/2025 2:45 AM EST HEPATIC FUNCTION PANEL Routine 05/27/2025 2:45 AM EST BASIC METABOLIC PANEL, PLASMA Routine 05/27/2025 2:45 AM EST CBC WITH AUTO DIFFERENTIAL Routine 05/27/2025 2:45 AM EST MAGNESIUM, PLASMA Routine 05/27/2025 2:4 5 AM EST PHOSPHORUS, PLASMA Routine 05/27/2025 2: 45 AM EST BASIC METABOLIC PANEL, PLASMA Pending Discharge 05/26/2025 11:15 AM EST POCT GLUCOSE METER UNSOLICITED RESULTS Routine 05/26/2025 9:38 AM EST POCT GLUCOSE METER UNSOLICITED RESULTS Routine 05/26/2025 8:44 AM EST ECG ADULT STAT 05/26/2025 8:32 AM EST POCT GLUCOSE METER UNSOLICITED RESULTS Routine 05/26/2025 8:06 AM EST MORPHOLOGY Routine 05/26/2025 12:30 AM EST MANUAL DIFFERENTIAL Routine 05/26/2025 12:30 AM EST TYPE AND SCREEN Pending Discharge 05/26/2025 12:30 AM EST SEDIMENTATION RATE, AUTOMATED Routine 05/26/2025 12:30 AM EST C-REACTIVE PROTEIN, PLASMA Routine 05/26/2025 12:30 AM EST PROCALCITONIN, PLASMA Routine 05/26/2025 12:30 AM EST HEPATIC FUNCTION PANEL Routine 05/26/2025 12:30 AM EST BASIC METABOLIC PANEL, PLASMA Routine 05/26/2025 12:30 AM EST CBC WITH AUTO DIFFERENTIAL Routine 05/26/2025 12:30 AM EST MAGNESIUM, PLASMA Routine 05/26/2025 12:30 AM EST PHOSPHORUS, PLASMA Routine 05/26/2025 12:30 AM EST 19 EXTRACTION, ERUPTED TOOTH OR EXPOSED ROOT (ELEVATION AND/OR FORCEPS REMOVAL) Routine 05/25/2025 2:00 PM EST [facility]ies 16 EXTRACTION, ERUPTED TOOTH REQUIRING REMOVAL OF BONE AND/OR SECTIONING OF TOOTH, AND INCLUDING ELEVATION OF MUCOPERIOSTEAL FLAP IF INDICATED Routine 05/25/2025 2:00 PM EST Caries LIMITED ORAL EVALUATION - PROBLEM FOCUSED Routine 05/25/2025 2:00 PM EST Caries MORPHOLOGY Routine 05/25/2025 2:10 AM EST MANUAL DIFFERENTIAL Routine 05/25/2025 2 :10 AM EST RENAL FUNCTION PANEL, PLASMA Routine 05/25/2025 2:10 AM EST CBC WITH AUTO DIFFERENTIAL Routine 05/25/2025 2:10 AM EST RENAL FUNCTION PANEL, PLASMA Pending Discharge 05/23/2025 8:23 AM EST LACTATE DEHYDROGENASE, PLASMA Routine 05/22/2025 4:12 AM EST URIC ACID, PLASMA Routine 05/22/2025 4:1 2 AM EST PHOSPHORUS, PLASMA Routine 05/22/2025 4: 12 AM EST US ABDOMEN DOPPLER LIMITED Routine 05/21/2025 4:36 PM EST MORPHOLOGY Routine 05/21/2025 4:56 AM EST MANUAL DIFFERENTIAL Routine 05/21/2025 4 :56 AM EST LACTATE DEHYDROGENASE, PLASMA Routine 05/21/2025 4:56 AM EST URIC ACID, PLASMA Routine 05/21/2025 4:56 AM EST PHOSPHORUS, PLASMA Routine 05/21/2025 4: 56 AM EST FERRITIN, SERUM Routine 05/21/2025 4:56 AM EST IRON & TOTAL IRON BINDING CAPACITY, PLASMA (INCLUDES TRANSFERRIN) Routine 05/21/2025 4:56 AM EST LACTATE, VENOUS Routine 05/21/2025 4:56 AM EST PROTHROMBIN TIME(PT) / INR Routine 05/21/2025 4:56 AM EST MAGNESIUM, PLASMA Routine 05/21/2025 4:5 6 AM EST COMPREHENSIVE METABOLIC PANEL, PLASMA Routine 05/21/2025 4:56 AM EST CBC WITH AUTO DIFFERENTIAL Routine 05/21/2025 4:56 AM EST US LIVER SCREEN Routine 05/20/2025 7:41 PM EST LACTATE DEHYDROGENASE, PLASMA Routine 05/20/2025 5:57 PM EST URIC ACID, PLASMA Routine 05/20/2025 5:5 7 PM EST PHOSPHORUS, PLASMA Routine 05/20/2025 5: 57 PM EST XR PANOREX Routine 05/20/2025 5:35 PM EST XR CHEST 1 VIEW Routine 05/20/2025 4:38 PM EST URINE HEWITT PANEL Routine 05/20/2025 3:53 PM EST URINALYSIS WITH REFLEX MICROSCOPIC Routine 05/20/2025 3:53 PM EST URINALYSIS WITH REFLEX MICROSCOPIC AND CULTURE Routine 05/20/2025 3:53 PM EST MORPHOLOGY STAT 05/20/2025 1:59 PM EST MANUAL DIFFERENTIAL STAT 05/20/2025 1 :59 PM EST GAMMA GLUTAMYLTRANSFERASE, PLASMA Add-On 05/20/2025 1:59 PM EST N-TERMINAL PROBNP, PLASMA Add-On 05/20/2025 1:59 PM EST LIPASE, PLASMA Add-On 05/20/2025 1:59 PM EST AMMONIA, PLASMA STAT 05/20/2025 1:59 PM EST CBC WITH AUTO DIFFERENTIAL STAT 05/20/2025 1:59 PM EST COMPREHENSIVE METABOLIC PANEL, PLASMA STAT 05/20/2025 1:59 PM EST BLOOD CULTURE (AEROBIC/ANAEROBIC SET) STAT 05/20/2025 1:59 PM EST BLOOD CULTURE (AEROBIC/ANAEROBIC SET) STAT 05/20/2025 1:59 PM EST ECG ADULT STAT 05/20/2025 11:07 AM EST US GUIDED ABDOMINAL PARACENTESIS Routine 05/18/2025 1:35 PM EST Abdominal ascites BODY FLUID, CYTOSPIN, PATHOLOGIST INTERPRETATION Routine 05/18/2025 1:21 PM EST TOTAL PROTEIN, PERITONEAL FLUID Routine 05/18/2025 1:21 PM EST BODY FLUID CELL COUNT W/ MANUAL DIFFERENTIAL Routine 05/18/2025 1:21 PM EST BODY FLUID CULTURE AND GRAM STAIN Routine 05/18/2025 1:21 PM EST PANORAMIC RADIOGRAPHIC IMAGE Routine 04/26/2025 9:00 AM EDT Cardiac abnormality Subacute liver failure without hepatic coma Caries COMPREHENSIVE ORAL EVALUATION - NEW OR ESTABLISHED PATIENT Routine 04/26/2025 9:00 AM EDT Cardiac abnormality Subacute liver failure without hepatic coma [facility] MORPHOLOGY Routine 04/23/2025 9:20 AM EDT Myeloproliferativ e disorder (CMS/HCC) MANUAL DIFFERENTIAL Routine 04/23/2025 9 :20 AM EDT Myeloproliferativ e disorder (CMS/HCC) LACTATE DEHYDROGENASE, PLASMA Routine 04/23/2025 9:20 AM EDT Myeloproliferativ e disorder (CMS/HCC) COMPREHENSIVE METABOLIC PANEL, PLASMA Routine 04/23/2025 9:20 AM EDT Myeloproliferativ e disorder (CMS/HCC) CBC WITH AUTO DIFFERENTIAL Routine 04/23/2025 9:20 AM EDT Myeloproliferativ e disorder (CMS/HCC) PANORAMIC RADIOGRAPHIC IMAGE Routine 04/13/2025 9:30 AM EDT Encounter for dental examination LIMITED ORAL EVALUATION - PROBLEM FOCUSED Routine 04/13/2025 9:30 AM EDT Encounter for dental examination HEMOGLOBIN A1C Add-On 09/26/2024 12:43 AM EDT from Last 3 Months or Most Recently Relevant to Health Maintenance Results * (ABNORMAL) Potassium, Whole Blood (06/25/2025 4:23 AM EST) Only the most recent of11 resultswithin the time period is included. Pathologist [facility] Potassium, Whole Blood 3.2(L) 3.6 - 4.9 mmol/L LAB HEMATOLOGY METHOD 06/25/2025 5:03 AM EST [facility] Blood Venous blood specimen / Unknown Venipuncture / Unknown 06/25/2025 4:23 AM EST 06/25/2025 4:57 AM EST us Sherly Malik MD LAB BLOOD ORDERABLES Final Result Performing Organization Address City/State/[facility] Co de Phone Number [facility] [address] [place] [address] * (ABNORMAL) CBC W/O Differential (06/25/2025 4:23 AM EST) Only the most recent of11 resultswithin the time period is included. WBC Count 84.93(HH) 3.70 - 10.30 10*3/uL [...] 4:23 AM EST 06/25/2025 5:00 AM EST Sherly Malik MD LAB BLOOD ORDERABLES Final Result [facility] [address] [place] [address] * Phosphorus (06/25/2025 4:23 AM EST) Only the most recent of16 resultswithin the time period is included. Phosphorus, Plasma 2.7 2.5 - 4.5 mg/dL 06/25/2025 5:29 AM EST [facility] Blood Venous blood specimen / Unknown Venipuncture / Unknown 06/25/2025 4:23 AM EST 06/25/2025 4:58 AM EST Sherly Malik MD LAB BLOOD ORDERABLES Final Result [facility] [address] [place] [address] * Magnesium (06/25/2025 4:23 AM EST) Only the most recent of26 resultswithin the time period is included. Magnesium, Plasma 2.1 1.9 - 2.4 mg/dL 06/25/2025 5:29 AM EST [facility] Blood Venous blood specimen / Unknown Venipuncture / Unknown 06/25/2025 4:23 AM EST 06/25/2025 4:58 AM EST Sherly Malik MD LAB BLOOD ORDERABLES Final Result Performing Organization Address City/[facility]/ZIP Co de Phone Number [facility] [address] [place] [address] * (ABNORMAL) Hepatic function panel (06/25/2025 4:23 AM EST) Only the most recent of10 resultswithin the time period is included. Direct Bilirubin, Plasma 1.0(H) <=0.3 mg/dL 06/25/2025 [...] sult [facility] [address] [place] [address] * (ABNORMAL) Basic metabolic panel (06/25/2025 4:23 AM EST) Only the most recent of25 resultswithin the time period is included. Glucose, Plasma 88 74 - 99 mg/dL 06/25/2025 5:29 AM EST [facility] BUN, Plasma 81(H) 8 - 23 mg/dL 06/25/2025 5:29 AM EST [facility] Creatinine, Plasma 3.06(H) 0.70 - 1.20 mg/dL 06/25/2025 5:29 AM EST [facility] BUN/Creatinine Ratio 26 06/25/2025 5:29 AM EST [facility] BLOOD ORDERABLES Final Result Performing Organization Address City/[facility] Co de Phone Number [facility] [address] [place] [address] * ECG Adult (06/23/2025 9:12 PM EST) Only the most recent of8 resultswithin the time period is included. EKG DIAGNOSIS CLASS Borderline Abnormal MUSE ECG Ventricular Rate 77 BPM MUSE ECG Atrial Rate 77 BPM MUSE ECG SD Interval 160 ms MUSE ECG QRSD Interval 106 ms MUSE ECG QT Interval 420 ms MUSE ECG QTC Interval 475 ms MUSE ECG P [place] 51 degrees MUSE ECG R [place] 59 degrees MUSE ECG T Wave [place] 28 degrees MUSE ECG Diagnosis Sinus rhythm with premature atrial complexes MUSE ECG Diagnosis Incomplete right bundle branch block MUSE ECG Diagnosis Borderline ECG MUSE ECG Diagnosis Compared to last ECG MUSE ECG Diagnosis No significant change was found MUSE ECG Diagnosis Confirmed by Eyal Wallace ([id number]) on 06/25/2025 8:19:52 PM MUSE ECG 06/23/2025 9:12 PM EST 06/25/2025 8:19 PM EST Sherly Malik MD ECG ORDERABLES Final Resu lt MUSE ECG * (ABNORMAL) Urinalysis with reflex microscopic (Culture NOT Included) (06/23/2025 12:55 AM EST) Only the most recent of3 resultswithin the time period is included. Color, Urine Yellow LAB URINALYSIS - AUTOMATED METHOD 06/23/2025 1:16 AM EST [facility] Clarity, Urine Clear LAB URINALYSIS - AUTOMATED METHOD 06/23/2025 1:16 AM EST [facility] Spec [place], Urine 1.011 1.005 - 1.030 LAB URINALYSIS - AUTOMATED METHOD 06/23/2025 1:16 AM EST [facility] pH, Urine 6.0 5.0 - 8.0 LAB URINALYSIS - AUTOMATED METHOD 06/23/2025 1:16 AM EST [facility] Protein, Urine Trace(A) Negative mg/dL LAB [...] URINALYSIS - AUTOMATED METHOD 06/23/2025 1:16 AM [facility] Bilirubin, Urine Negative Negative LAB URINALYSIS - AUTOMATED METHOD 06/23/2025 1:16 AM EST [facility] Urobilinogen, Urine 1.0 0.2 to 1.0 mg/dL LAB URINALYSIS - AUTOMATED METHOD 06/23/2025 1:16 AM EST [facility] Leukocytes, Urine Negative Negative LAB URINALYSIS - AUTOMATED METHOD 06/23/2025 1:16 AM [facility] Nitrite, Urine Negative Negative LAB URINALYSIS - AUTOMATED METHOD 06/23/2025 1:16 AM [facility] Urine Urine specimen obtained by clean catch procedure / Unknown Non-blood Collection / Unknown 06/23/2025 12:55 AM EST 06/23/2025 1:05 AM EST us Sherly Malik MD LAB URINE ORDERABLES Final Result [facility] [address] [place] [address] * Lactate, venous (06/22/2025 12:10 AM EST) Only the most recent of5 resultswithin the time period is included. Lactate, Venous, Whole Blood 1.8 0.5 - 2.2 mmol/L LAB HEMATOLOGY METHOD 06/22/2025 12:21 AM EST [facility] Blood Venous blood specimen / Unknown Venipuncture / Unknown 06/22/2025 12:10 AM EST 06/22/2025 12:17 AM EST Viktoria Glynn MD LAB BLOOD ORDERABLES Final Re sult Performing Organization Address City/[facility]/ZIP Co de Phone Number [facility] [address] [place] [address] * Light Green Top (06/21/2025 4:14 PM EST) Extra Hold for add-ons 06/21/2025 7:01 PM EST [facility] Comment:Auto resulted. Blood Venous blood specimen / Unknown 06/21/2025 4:14 PM EST 06/21/2025 4:52 PM EST Sherly Malik MD LAB BLOOD ORDERABLES Final Result Performing Organization Address City/[facility] Co de Phone Number [facility] [address] [place] [address] * (ABNORMAL) Renal function panel (06/21/2025 7:21 AM EST) Only the most recent of3 resultswithin the time period is included. Glucose, Plasma 82 74 - 99 mg/dL 06/21/2025 8:31 AM EST [facility] BUN, Plasma 67(H) 8 - 23 mg/dL 06/21/2025 8:31 AM EST [facility] Creatinine, Plasma 3.04(H) 0.70 - 1.20 mg/dL 06/21/2025 8:31 AM EST [facility] BUN/Creatinine Ratio 22 06/21/2025 8:31 AM EST [facility] Sodium, Plasma 132(L) 136 - 145 mmol/L 06/21/2025 8:31 AM EST [facility] Potassium, Plasma 5.5(H) 3.6 - 4.9 mmol/L 06/21/2025 8:31 AM EST [facility] Comment:Hemolyzed - Potassiu m may be falsely elevated by approximately 0.8-1.7 mmol/L. Chloride, Plasma 88(L) 97 - 107 mmol/L 06/21/2025 8:31 AM EST [facility] CO2, Plasma 27 22 - 29 mmol/L 06/21/2025 8:31 AM EST [facility] Anion Gap 17(H) 6 - 16 mmol/L 06/21/2025 8:31 AM EST [facility] Total Calcium, Plasma 8.8(L) 8.9 - 10.2 mg/dL 06/21/2025 8:31 AM EST [facility] Phosphorus, Plasma 4.3 2.5 - 4.5 mg/dL 06/21/2025 8:31 AM EST [facility] Albumin, Plasma 3.2(L) 3.5 - 5.2 g/dL 06/21/2025 8:31 AM EST [facility] eGFRcr 20.8 mL/min/1. 73m*2 06/21/2025 8:31 AM EST [facility] Comment:Reported eGFRcr in m L/min/1.73m2 is based the CKD-EPI 2020 equation that does not use a race coefficient. Blood Venous blood specimen / Unknown Venipuncture / Unknown 06/21/2025 7:21 AM EST 06/21/2025 7:30 AM EST Viktoria Glynn MD LAB BLOOD ORDERABLES Final Re sult [facility] [address] [place] [address] * (ABNORMAL) Procalcitonin (06/20/2025 5:06 PM EST) Only the most recent of4 resultswithin the time period is included. Procalcitonin, Plasma 0.55(H) <0.09 ng/mL 06/20/2025 7:30 [...] predict 28 day mortality risk. Please consult [email or web address].Xecced for more information. Test performed at [facility]. Viktoria Glynn MD LAB BLOOD ORDERABLES Final Re sult Performing Organization Address [facility] Co de Phone Number [facility] [address] [place] [address] * (ABNORMAL) C-reactive protein (06/20/2025 5:06 PM EST) Only the most recent of4 resultswithin the time period is included. CRP, Plasma 36.3(H) <=8.0 mg/L 06/20/2025 6:10 [...] ORDERABLES Final Re sult Performing Organization Address [facility] Co de Phone Number [facility] [address] [place] [address] * Potassium, Plasma (06/20/2025 5:06 PM EST) Only the most recent of2 resultswithin the time period is included. Potassium, Plasma 4.2 3.6 - 4.9 mmol/L 06/20/2025 7:31 PM EST [facility] Comment:Hemolyzed - Potassiu m may be falsely elevated by approximately 0.4-0.7 mmol/L. Blood Venous blood specimen / Unknown Venipuncture / Unknown 06/20/2025 5:06 PM EST 06/20/2025 5:10 PM EST Viktoria Glynn MD LAB BLOOD ORDERABLES Final Re sult Performing Organization Address [facility] Co de Phone Number [facility] [address] [place] [address] * Lavender Top (06/20/2025 10:12 AM EST) Extra Hold for add-ons 06/20/2025 1:01 PM EST [facility] Comment:Auto resulted. Blood Venous blood specimen / Unknown 06/20/2025 10:12 AM EST 06/20/2025 10:18 AM EST Viktoria Glynn MD LAB BLOOD ORDERABLES Final Re sult Performing Organization Address [facility] de Phone Number [facility] [address] [place] [address] * ECHO, ADULT TRANSTHORACIC LIMITED (06/20/2025 7:56 AM EST) BSA 1.88 m2 NASIM ISCV Height 160.0 NASIM ISCV Weight 85.0 NASIM ISCV LVIDd 55 mm NASIM ISCV LVIDs 46 mm NASIM ISCV IVSd 6 mm NASIM ISCV LVPWd 8 mm NASIM ISCV LV MASS(C)D 135 g NASIM ISCV [facility] CV ECHO LV MASS INDEX 72 g/m2 [...] there is no significant interval change noted. us Viktoria Glynn MD CV ECHO PROCEDURES Final Resu lt * (ABNORMAL) POCT glucose meter (06/19/2025 7:35 PM EST) Only the most recent of9 resultswithin the time period is included. POCT Glucose 109(H) 74 - 99 mg/dL 06/19/2025 7:36 PM EST [facility] Comment:Accuracy of a [...] for testing. Comment 06/19/2025 7:36 PM EST [facility] Machine Tender ID Asmi Jaime 06/19/20 7:36 PM EST [facility] Device ID [id number] 06/19/2025 7:36 PM EST [facility] Specimen Type POC Capillary 06/19/2025 7:36 PM EST [facility] Blood Capillary blood specimen / Unknown 06/19/2025 7:35 PM EST 06/19/2025 7:36 PM EST Viktoria Glynn MD LAB POINT OF CARE TE ST DOCKED DEVICE UNSOLICITED RESULTS Final Result Performing Organization Address City/State/[facility] Co de Phone Number [facility] [address] [place] [address] * US Renal Complete (06/19/2025 3:19 PM EST) Anatomical Region Laterality Modality Kidney Ultrasound Impressions 06/19/2025 3:22 PM EST Mild right pelviectasis. CRITICAL RESULT: No. COMMUNICATION: Per this written report. Drafted by Ashlee Jha MD on 06/19/2025 3:20 PM Final report signed by Ashlee Jha MD on 06/19/2025 3:22 PM Narrative 06/19/2025 3:22 PM EST CLINICAL INDICATION: Kidney injury. TECHNIQUE: Multiplanar hewitt scale sonographic imaging of the kidneys. COMPARISON: [...] 06/19/2025 CLINICAL INDICATION: Kidney injury. TECHNIQUE: Multiplanar hewitt scale sonographic imaging of the kidneys. COMPARISON: None. FINDINGS: Right Kidney: The right kidney is normal in size and echogenicitymeasuring 11.3 cm. Mild pelviectasis. No contour deforming masses. Noobvious calculi. Left Kidney: The left kidney is normal in size and echogenicity .9 cm. No hydronephrosis. No contour deforming masses. No obviouscalculi. Bladder: Partially decompressed without obvious abnormality. IMPRESSION: Mild right pelviectasis. CRITICAL RESULT: No. COMMUNICATION: Per this written report. Drafted by Ashlee Jha MD on 06/19/2025 3:20 PM Final report signed by Ashlee Jha MD on 06/19/2025 3:22 PM us Viktoria Glynn MD IMG US PROCEDURES Final Resul t * Urea nitrogen, urine (06/18/2025 10:30 PM EST) Urea Nitrogen, Urine 148 mg/dL 06/18/2025 11:24 PM EST [facility] Urine Urine specimen obtained by clean catch procedure / Unknown Non-blood Collection / Unknown 06/18/2025 10:30 PM EST 06/18/2025 10:44 PM EST us Viktoria Glynn MD LAB URINE ORDERABLES Final Re sult [facility] [address] [place] [address] * Sodium, urine, random (06/18/2025 10:30 PM EST) Sodium, Urine 107 mmol/L 06/18/2025 11:13 PM EST [facility] Urine Urine specimen obtained by clean catch procedure / Unknown Non-blood Collection / Unknown 06/18/2025 10:30 PM EST 06/18/2025 10:44 PM EST Viktoria Glynn MD LAB URINE ORDERABLES Final Re sult Performing Organization Address [facility] Co de Phone Number [facility] [address] [place] [address] * Creatinine, urine, random (06/18/2025 10:30 PM EST) Creatinine, Urine 15 mg/dL 06/18/2025 11:13 PM EST [facility] Urine Urine specimen obtained by clean catch procedure / Unknown Non-blood Collection / Unknown 06/18/2025 10:30 PM EST 06/18/2025 10:44 PM EST Viktoria Glynn MD LAB URINE ORDERABLES Final Re sult Performing Organization Address [facility] Co de Phone Number [facility] [address] [place] [address] * Albumin - Ascites (06/18/2025 9:51 AM [...] developed and its performance characteristics determined by [facility]. The U.S. Food and Drug Administration has not approved or cleared this test; however, FDA clearance or approval is not currently required for clinical use. The results are not intended to be used as the sole means for clinical diagnosis or patient management decisions. us Viktoria Glynn MD LAB BODY FLUIDS AND STOOLS OR DERABLES Final Result [facility] [address] [place] [address] * (ABNORMAL) Free Hemoglobin, Plasma (06/18/2025 3:36 AM EST) Free Hemoglobin, Plasma 58(H) <=10 mg/dL 06/18/2025 6:18 AM EST [facility] Blood Venous blood specimen / Unknown Venipuncture / Unknown 06/18/2025 3:36 AM EST 06/18/2025 3:50 AM EST us Prashant Ma MD LAB BLOOD ORDERABLES Final Result Performing Organization Address City/[facility]/ZIP Co de Phone Number [facility] [address] [place] [address] * (ABNORMAL) Urinalysis, manual only (06/18/2025 1:56 AM EST) Color, Urine Yellow LAB URINALYSIS - AUTOMATED METHOD 06/18/2025 2:06 AM [facility] Clarity, Urine Cloudy LAB URINALYSIS - AUTOMATED METHOD 06/18/2025 2:06 AM [facility] Spec [place], Urine 1.021 1.005 - 1.030 LAB URINALYSIS - AUTOMATED METHOD 06/18/2025 2:06 AM [facility] pH, Urine 5.5 5.0 - 8.0 LAB URINALYSIS - AUTOMATED METHOD 06/18/2025 2:06 AM [facility] Protein, Urine 100(A) Negative mg/dL LAB URINALYSIS - AUTOMATED METHOD 06/18/2025 2:06 AM [facility] Glucose, Urine Negative Negative mg/dL LAB URINALYSIS - AUTOMATED METHOD 06/18/2025 2:06 AM [facility] Ketones, Urine Negative Negative mg/dL LAB URINALYSIS - AUTOMATED METHOD 06/18/2025 2:06 AM [facility] Blood, Urine Negative Negative LAB URINALYSIS - AUTOMATED METHOD 06/18/2025 2:06 AM [facility] Bilirubin, Urine Negative Negative LAB URINALYSIS - AUTOMATED METHOD 06/18/2025 2:06 AM [facility] Urobilinogen, Urine 1.0 0.2 to 1.0 mg/dL LAB URINALYSIS - AUTOMATED METHOD 06/18/2025 2:06 AM EST [facility] Leukocytes, [...] Ma MD LAB URINE ORDERABLES Final Result [facility] [address] [place] [address] * (ABNORMAL) Body Fluid Cell Count w/ Diff (06/17/2025 11:15 PM EST) Only the most recent of2 resultswithin the time period is included. Color, Body fluid Yellow LAB HEMATOLOGY METHOD 06/18/2025 11:51 AM EST [facility] Appearance, Body fluid Cloudy(A) LAB HEMATOLOGY METHOD 06/18/2025 11:51 AM [facility] Volume, Body fluid 4.0 cc LAB HEMATOLOGY METHOD 06/18/2025 11:51 AM EST [facility] Fluid Container Tube 3 LAB HEMATOLOGY METHOD 06/18/2025 11:51 AM EST [facility] Red Blood Cell Count, Body fluid 3,000 uL LAB HEMATOLOGY METHOD 06/18/2025 11:51 AM [facility] Total Nucleated Cell Count, Body fluid 690 uL LAB HEMATOLOGY METHOD 06/18/2025 11:51 AM EST [facility] Neutrophils %, Body fluid 13 % LAB HEMATOLOGY METHOD 06/18/2025 11:51 AM EST [facility] Lymphocytes %, Body fluid 63 % LAB HEMATOLOGY METHOD 06/18/2025 11:51 AM EST [facility] Monocytes/Macro phages %, Body fluid 10 % LAB HEMATOLOGY METHOD 06/18/2025 11:51 AM EST [facility] Eosinophils %, Body fluid 5 % LAB HEMATOLOGY METHOD 06/18/2025 11:51 AM EST [facility] Lining/Mesothel ial Cells %, Body fluid 1 % LAB HEMATOLOGY METHOD 06/18/2025 11:51 AM EST [facility] Other Cells %, Body fluid 1 % LAB HEMATOLOGY METHOD 06/18/2025 11:51 AM EST [facility] Comment:Left-shifted granulo cyte Neutrophils Absolute (PMN), Body fluid 90 uL LAB HEMATOLOGY METHOD 06/18/2025 11:51 AM EST [facility] Lymphocytes Absolute, Body fluid 435 uL LAB HEMATOLOGY METHOD 06/18/2025 11:51 AM EST [facility] Monocytes/Macro phages Absolute, Body fluid 69 uL LAB HEMATOLOGY METHOD 06/18/2025 11:51 AM EST [facility] Eosinophils Absolute, Body fluid 35 uL LAB HEMATOLOGY METHOD 06/18/2025 11:51 AM EST [facility] Basophils Absolute, Body fluid 48 uL LAB HEMATOLOGY METHOD 06/18/2025 11:51 AM EST [facility] Lining/Mesothel ial Cells Absolute, Body fluid 7 uL LAB HEMATOLOGY METHOD 06/18/2025 11:51 AM EST [facility] Other Cells Absolute, Body fluid 7 uL LAB HEMATOLOGY METHOD 06/18/2025 11:51 AM EST [facility] Comment, Body fluid None LAB HEMATOLOGY METHOD 06/18/2025 11:51 AM EST [facility] Comment:This is an appended report. These results have been appended to a previously preliminary verified report. Basophils %, Body fluid 7 % LAB HEMATOLOGY METHOD 06/18/2025 11:51 AM EST [facility] Body Fluid Peritoneal fluid / Unknown Non-blood Collection / Unknown 06/17/2025 11:15 PM EST 06/17/2025 11:32 PM EST us Bill Hamilton MD LAB BODY FLUIDS AND STOOLS ORDERABLES NO SPECIMEN TYPE/SOURCE Final Result [facility] [address] [place] [address] * Body fluid, cytospin, pathologist interpretation (06/17/2025 11:15 PM EST) Only the most recent of2 resultswithin the time period is included. Specimen Type Body Fluid LAB HEMATOLOGY METHOD [...] 11:15 PM EST 06/17/2025 11:32 PM EST Bill Hamilton MD LAB BODY FLUIDS AND STOOLS OR DERABLES Final Result [facility] [address] [place] [address] * Amylase, Peritoneal Fluid (06/17/2025 11:14 PM [...] developed and its performance characteristics determined by [facility]. The [place].S. Food and Drug [...] plasma/serum results, and other clinical evidence. us Bill Hamilton MD LAB BODY FLUIDS AND STOOLS OR DERABLES Final Result Performing Organization Address City/[facility] [place] [address] * Body Fluid Culture and Gram Stain (06/17/2025 11:14 PM EST) Only the most recent of2 resultswithin the time period is included. Culture No growth at day 4 2024 [...] 11:14 PM EST 06/17/2025 11:31 PM EST us Bill Hamilton MD LAB MICROBIOLOGY - GENERAL OR DERABLES Final Result Performing Organization Address City/[facility] Co de Phone Number [facility] [address] [place] [address] * Total Protein, Peritoneal Fluid (06/17/2025 11:14 PM EST) Only the most recent of2 resultswithin the time period is included. Total Protein, Fluid 1.5 g/dL 06/18/2025 12:00 AM EST [facility] Ascites Peritoneal cavity structure / Unknown 06/17/2025 11:14 PM EST 06/17/2025 11:32 PM EST Narrative [facility] - 06/18/2025 12:00 AM EST This test was developed and its performance characteristics determined by [facility]. The U.S. Food and Drug Administration has not approved or cleared this test. However, FDA clearance or approval is not currently required for clinical use. The results are not intended to be used as the sole means for clinical diagnosis or patient management decisions. Bill Hamilton MD LAB BODY FLUIDS AND STOOLS OR DERABLES Final Result Performing Organization Address [facility] Co de Phone Number [facility] [address] [place] [id number] * Lactate dehydrogenase, body fluid (06/17/2025 11:14 [...] for plasma; 3) Glucose < 50 mg/dL. Bill Hamilton MD LAB BODY FLUIDS AND STOOLS OR DERABLES Final Result Performing Organization Address [facility] Co de Phone Number [address] [address] * Glucose, Peritoneal Fluid (06/17/2025 11:14 PM [...] for plasma; 3) Glucose < 50 mg/dL. us Bill Hamilton MD LAB BODY FLUIDS AND STOOLS OR DERABLES Final Result [facility] [address] [place] [address] * XR Chest 1 View (06/17/2025 5:50 PM EST) Only the most recent of2 resultswithin the time period is included. Anatomical Region Laterality Modality Chest Digital Radiogra [...] Alfonzo John MD on 06/17/2025 6:11 PM us Bill Hamilton MD IMG XR PROCEDURES Final Resul t * Gold Top (06/17/2025 5:16 PM EST) Pathologist [facility] Extra Hold for add-ons 06/17/2025 8:01 PM EST [facility] Comment:Auto resulted. Blood Venous blood specimen / Unknown 06/17/2025 5:16 PM EST 06/17/2025 5:20 PM EST us Bill Hamilton MD LAB BLOOD ORDERABLES Final Re sult Performing Organization Address City/[facility]/ZIP Co de Phone Number [facility] [address] [place] [address] * Morphology (06/17/2025 5:16 PM EST) Only the most recent of7 resultswithin the time period is included. Pathologist [facility] Polychromasia Slight LAB HEMATOLOGY METHOD 06/17/2025 7:17 [...] PM EST 06/17/2025 5:18 PM EST us Bill Hamilton MD LAB BLOOD ORDERABLES Final Re sult Performing Organization Address City/[facility]/ZIP Co de Phone Number [facility] [address] [place] [address] * (ABNORMAL) Manual Differential (06/17/2025 5:16 PM EST) Only the most recent of7 resultswithin the time period is included. Blasts % 0 % LAB HEMATOLOGY METHOD [...] PM EST [facility] Reactive Lymphocytes % 0 % LAB HEMATOLOGY METHOD 06/17/2025 7:17 PM EST [facility] Monocytes % 8 % LAB HEMATOLOGY METHOD 06/17/2025 7:17 PM EST [facility] Eosinophils % 2 % LAB HEMATOLOGY METHOD 06/17/2025 7:17 PM EST [facility] Basophils % 1 % LAB HEMATOLOGY METHOD 06/17/2025 7:17 PM EST [facility] Blasts Absolute 0.00 10*3/UL LAB HEMATOLOGY METHOD 06/17/2025 7:17 PM EST [facility] Promyelocytes Absolute 0.00 10*3/uL LAB HEMATOLOGY METHOD 06/17/2025 7:17 PM EST [facility] Myelocytes Absolute 0.56 10*3/uL LAB HEMATOLOGY METHOD 06/17/2025 7:17 PM EST [facility] Metamyelocytes Absolute 0.00 10*3/uL LAB HEMATOLOGY METHOD 06/17/2025 7:17 PM [facility] Neutrophils Absolute 48.11(H) 1.60 - 6.10 10*3/uL LAB HEMATOLOGY METHOD 06/17/2025 7:17 PM EST [facility] Lymphocytes Absolute 1.12(L) 1.20 - 3.90 10*3/uL LAB HEMATOLOGY METHOD 06/17/2025 7:17 PM EST [facility] Reactive Lymphocytes Absolute 0.00 10*3/uL LAB HEMATOLOGY METHOD 06/17/2025 7:17 PM EST [facility] Monocytes Absolute 4.48(H) 0.30 - 0.90 10*3/uL LAB HEMATOLOGY METHOD 06/17/2025 7:17 PM EST [facility] Eosinophils Absolute 1.12(H) 0.00 - 0.50 10*3/uL LAB HEMATOLOGY METHOD 06/17/2025 7:17 PM EST [facility] Basophils Absolute 0.56(H) 0.00 - 0.10 10*3/uL LAB HEMATOLOGY METHOD 06/17/2025 7:17 PM EST [facility] Blood Venous blood specimen / Unknown Venipuncture / Unknown 06/17/2025 5:16 PM EST 06/17/2025 5:18 PM EST us Bill Hamilton MD LAB BLOOD ORDERABLES Final Re sult Performing Organization Address City/[facility]/ZIP Co de Phone Number [facility] [address] [place] [address] * Hepatitis C Antibody - ED W/Reflex to HCV Quant PCR (06/17/2025 5:16 PM EST) Hepatitis C Antibody Negative Negative 06/17/2025 6:20 PM EST [facility] Blood Venous blood specimen / Unknown Venipuncture / Unknown 06/17/2025 5:16 PM EST 06/17/2025 5:39 PM EST us Bill Hamilton MD LAB BLOOD ORDERABLES Final Re sult Performing Organization Address City/[facility]/ZIP Co de Phone Number [facility] [address] [place] [address] * (ABNORMAL) BNP (06/17/2025 5:16 PM EST) Only the most recent of2 resultswithin the time period is included. N-Terminal, PROBNP, Plasma 8,695(H) 0 - 899 pg/mL 06/17/2025 5:47 PM EST [facility] Blood Venous blood specimen / Unknown Venipuncture / Unknown 06/17/2025 5:16 PM EST 06/17/2025 5:18 PM EST us Bill Hamilton MD LAB BLOOD ORDERABLES Final Re sult [facility] [address] [place] [address] * (ABNORMAL) CBC w/diff (06/17/2025 5:16 PM EST) Only the most recent of8 resultswithin the time period is included. WBC Count 55.94(H) 3.70 - 10.30 10*3/uL [...] 5:16 PM EST 06/17/2025 5:18 PM EST [facility] - 06/17/2025 7:17 PM EST Therapeutic [...] Granulocytes is no longer being reported. us Bill Hamilton MD LAB BLOOD ORDERABLES Final Re sult [facility] [address] [place] [address] * (ABNORMAL) CMP (06/17/2025 5:16 PM EST) Only the most recent of4 resultswithin the time period is included. Glucose, Plasma 90 74 - 99 mg/dL [...] PM EST 06/17/2025 5:18 PM EST us Bill Hamilton MD LAB BLOOD ORDERABLES Final Re sult [facility] [address] [place] [address] * SD ABDOM PARACENTESIS DX/THER W IMAGING GUIDANCE, HC ABDOMINAL PARACENTESIS DIAGNOSIS/THERAPY W IMAGING GUIDANCE (06/17/2025 4:16 PM EST) Anatomical Region Laterality Modality Other Narrative 06/17/2025 4:16 PM EST Bill Hamilton MD 06/21/2025 9:26 AM Paracentesis Performed by: Gil Rolbes DO Authorized by: Bill Hamilton MD Consent: Consent obtained: Written Consent given by: Patient Risks discussed: Bleeding, bowel perforation, infection and pain Alternatives discussed: No treatment and delayed treatment [place] protocol: Procedure explained and questions answered to [...] Procedure completion: Tolerated well, no immediate complications us Bill Hamilton MD IN CLINIC/BEDSIDE ORDERABLES Final Result * Sedimentation Rate, Automated (05/28/2025 4:20 AM EST) Only the most recent of3 resultswithin the time period is included. Sedimentation Rate 14 <20 mm/hr 2024 4:47 AM EST [facility] Blood Venous blood specimen / Unknown Venipuncture / Unknown 05/28/2025 4:20 AM EST 05/28/2025 4:24 AM EST us Daniel Corbett MD LAB BLOOD ORDERABLES Final Res ult [facility] [address] [place] [address] * (ABNORMAL) Uric Acid, Plasma (05/28/2025 4:20 AM EST) Only the most recent of5 resultswithin the time period is included. Uric Acid, Plasma 12.6(H) 3.7 - 8.0 mg/dL 05/28/2025 5:00 AM EST [facility] Blood Venous blood specimen / Unknown Venipuncture / Unknown 05/28/2025 4:20 AM EST 05/28/2025 4:24 AM EST us Daniel Corbett MD LAB BLOOD ORDERABLES Final Res ult Performing Organization Address City/[facility]/ZIP Co de Phone Number [facility] [address] [place] [address] * (ABNORMAL) Lactate Dehydrogenase, Plasma (05/28/2025 4:20 AM EST) Only the most recent of6 resultswithin the time period is included. LDH, Plasma 748(H) 116 - 250 U/L 05/28/2025 4:56 AM EST [facility] Comment:Hemolyzed, result ma y be falsely increased. Blood Venous blood specimen / Unknown Venipuncture / Unknown 05/28/2025 4:20 AM EST 05/28/2025 4:24 AM EST us Daniel Corbett MD LAB BLOOD ORDERABLES Final Res ult Performing Organization Address City/[facility] Co de Phone Number [facility] [address] [place] [address] * Type and Screen (05/26/2025 12:30 AM EST) ABO/Rh O Positive 05/26/2025 12:36 AM EST [facility]LO[facility] Antibody Screen Negative 05/26/2025 12:36 AM EST [facility]LO[facility] Specimen Expiration 05/29/2025 23:59 05/26/2025 12:36 AM EST [facility]LO[facility] Blood Venous blood specimen / Unknown Venipuncture / Unknown 05/26/2025 12:30 AM EST 05/26/2025 12:36 AM EST us Tigist Castillo MD LAB BLOOD BANK TEST ORDER DMITRI Final Result Performing Organization Address City/[facility] Co de Phone Number BLOOD BANK [address] [place] [address], [place] * US Abdomen Doppler Limited (05/21/2025 4:36 [...] US PROCEDURES Final Res ult * (ABNORMAL) Iron & Total Iron Binding Capacity, Plasma (Includes Transferrin) (05/21/2025 4:56 AM EST) Iron, Plasma 8(L) 50 - 170 ug/dL 05/21/2025 5:36 AM EST [facility] Transferrin, Plasma 249 200 - 360 mg/dL 05/21/2025 5:36 AM EST [facility] Total Iron Binding Capacity, Plasma 311 240 - 450 ug/mL 05/21/2025 5:36 AM EST [facility] Transferrin Saturation 3(L) 14 - 50 % 05/21/2025 5:36 AM EST [facility] Blood Venous blood specimen / Unknown Venipuncture / Unknown 05/21/2025 4:56 AM EST 05/21/2025 5:03 AM EST Susanne Duke MD LAB BLOOD ORDERABLES Final Resu lt Performing Organization Address City/[facility]/ZIP Co de Phone Number [facility] [address] [place] [address] * (ABNORMAL) PT/INR (05/21/2025 4:56 AM EST) Prothrombin Time 16.8(H) 12.0 - 14.3 sec LAB COAGULATION METHOD 05/21/2025 5:41 AM EST [facility] INR 1.3(H) 0.9 - 1.1 LAB COAGULATION METHOD 05/21/2025 5:41 AM EST [facility] Blood Venous blood specimen / Unknown Venipuncture / Unknown 05/21/2025 4:56 AM EST 05/21/2025 5:11 AM EST Narrative [facility] - 05/21/2025 5:41 AM EST OPTIMAL INR RANGES FOR PATIENT ON ORAL ANTICOAGULANT THERAPY Prevention of venous thromboembolism INR 2.0 to 3.0 In patients with heart disease: Atrial fibrillation INR 2.0 to 3.0 Valvular heart disease INR 2.0 to 3.0 Tissue heart valves INR 2.0 to 3.0 Mechanical prosthetic valves INR 2.5 to 3.5 Prevention of recurrent GA INR 2.5 to 3.5 Susanne Duke MD LAB BLOOD ORDERABLES Final Resu lt [facility] [address] [place] [address] * Ferritin, Serum (05/21/2025 4:56 AM EST) Ferritin, Serum 88 20 - 400 ng/mL 05/21/2025 5:41 AM EST [facility] Blood Venous blood specimen / Unknown Venipuncture / Unknown 05/21/2025 4:56 AM EST 05/21/2025 5:03 AM EST Susanne Duke MD LAB BLOOD ORDERABLES Final Resu lt [facility] [address] [place] [address] * US Liver Screen (05/20/2025 7:41 PM [...] Ashlee Jha MD on 05/20/2025 8:17 PM us Susanne Duke MD IMG US PROCEDURES Final Result * XR Panorex (05/20/2025 5:35 PM EST) [...] culture not indicated 05/21/2025 1:03 AM EST [facility] Comment: Previously prelim verified as Specimen [...] MD LAB URINE ORDERABLES Final Resu lt Performing Organization Address City/[facility]/[place] [address] * Blood Culture (Aerobic/Anaerobet Set) (05/20/2025 1:59 PM EST) Only the most recent of2 resultswithin the time period is included. Culture No growth at day 5 05/25/2025 3:01 PM EST [facility] Blood Structure of right forearm / Unknown Venipuncture / Unknown 05/20/2025 1:59 PM EST 05/20/2025 2:32 PM EST Garret Michelle MD LAB MICROBIOLOGY - GENERAL ORDER DMITRI Final Result Performing Organization Address [facility] [place] [address] * (ABNORMAL) Lipase (05/20/2025 1:59 PM EST) Lipase, Plasma 151(H) 19 - 63 U/L 05/20/2025 4:50 PM EST [facility] Blood Venous blood specimen / Unknown Venipuncture / Unknown 05/20/2025 1:59 PM EST 05/20/2025 2:17 PM EST us Susanne Duke MD LAB BLOOD ORDERABLES Final Resu lt Performing Organization Address City/[facility]/ZIP Co de Phone Number [facility] [address] [place] [address] * (ABNORMAL) GGT (05/20/2025 1:59 PM EST) GGT, Plasma 158(H) 8 - 61 U/L 05/20/2025 5:27 PM EST [facility] Blood Venous blood specimen / Unknown Venipuncture / Unknown 05/20/2025 1:59 PM EST 05/20/2025 2:17 PM EST Susanne Dkue MD LAB BLOOD ORDERABLES Final Resu lt Performing Organization Address City/[facility]/ZIP Co de Phone Number [facility] [address] [place] [address] * Ammonia (05/20/2025 1:59 PM EST) Ammonia 51 11 - 51 umol/L 05/20/2025 2:48 PM EST [facility] Blood Venous blood specimen / Unknown Venipuncture / Unknown 05/20/2025 1:59 PM EST 05/20/2025 2:26 PM EST Garret Michelle MD LAB BLOOD ORDERABLES Final Resul t Performing Organization Address [facility] Co de Phone Number [facility] [address] [place] [address] * US Guided Abdominal Paracentesis (05/18/2025 1:35 [...] who presents today for outpatient paracentesis. TECHNIQUE: Acid Tank Cleaner: Mary Cardona APRN Secondary Machine Tender: None. Rad Dose: NA Medications: Continuous physiologic [...] cirrhosis who presents todayfor outpatient paracentesis. TECHNIQUE: Acid Tank Cleaner: Mary Cardona APRN Secondary Machine Tender: None. Rad Dose: NA Medications: Continuous physiologic [...] IMG US PROCEDURES Final Resu lt * (ABNORMAL) Hemoglobin A1c (09/26/2024 12:43 AM EDT) Hemoglobin A1c 5.9(H) <5.7 % 09/26/2024 3:51 AM EDT [facility] Blood Venous blood specimen / Unknown Venipuncture / Unknown 09/26/2024 12:43 AM EDT 09/26/2024 1:02 AM EDT Narrative [facility] - 09/26/2024 3:51 AM EDT HA1C Interpretive Data: Diagnosis of Diabetes: Diabetic > or = 6.5% Pre-diabetic 5.7 to 6.4% Non-diabetic < or = 5.6% Glycemic Targets for Type I and Type II Diabetics: Non- Adults <7.0% Adults <6.0% Children and Adolescents <7.5% Source: [place] [employer]. Standards of medical care in diabetes,2017. Diabetes Care.2017:40 (suppl 1):S1-S135. HbA1c assay performed by an ion-exchange chromatography method that is certified traceable to the DCCT. Gurdeep Hannah MD LAB BLOOD ORDERABLES Final Result [facility] [address] [place] [address] from Last 3 Months or Most Recently Relevant to Health Maintenance Insurance [place] * Full Code (Latest Code Status on File) Date Activated Date Inactivated Comments 06/17/2025 11:44 PM 06/25/2025 7:20 PM Question Answer Comments I have reviewed the capacity from the link above and, if needed, have updated to appropriate status: Yes * Full Code Date Activated Date Inactivated Comments 05/20/2025 3:22 PM 05/28/2025 1:31 PM Question Answer Comments I have reviewed the capacity from the link above and, if needed, have updated to appropriate status: Yes * Full Code Date Activated Date Inactivated Comments 01/19/2025 6:02 AM 01/21/2025 8:59 PM Question Answer Comments I have reviewed the capacity from the link above and, if needed, have updated to appropriate status: Yes * Full Code Date Activated Date Inactivated Comments 10/05/2024 10:49 PM 10/10/2024 4:54 PM * DNR/DNI Date Activated Date Inactivated Comments 09/25/2024 10:04 PM 09/29/2024 6:45 PM Question Answer Comments DNR determined on/before admission date? Yes Care Teams Arbitrator Relationship Specialty Start Date End Date Debbie Medina MD [address] [facility] [address] [place] [address] PCP - General 09/28/24 Lee Collier MD [address] [place] [id number] Internal Medicine 10/18/23 Kristopher Benitez, RN None None Registered Nurse Hematology and Oncology 03/15/25 Bekah Flores, RN None None Registered Nurse 05/25/25
--- OUTSIDE RECORDS SUMMARY | 2025-06-26 10:30 | XMS_ITS | Continuity of Care Document ---
Author Organization [facility] [address] [place] [address] Address [facility] [place][note 2][address] [place] [address] Assessment Encounter Date Assessment Date Assessment LastModified by Organization Details LastModified Time 06/16/2025 06/16/2025 75 y/o Male C/O Chronic Lower Back Pain. D/T Lumbar/LS DDD, Spondylosis, Radiculopathy Complicated by : 1) BL Knee Pain (Primary OA) 2) Fibromyalgia 3) Malignant Neoplasm of the Bone * ACME = 40 : 05/23/25 -- Hydrocodone APAP 10/325 mg QID PRN and 05/28/25 -- Gabapentin 800 mg QID * UDS 02/10/25 = OK * Pt reports he cont on Oral Chemotherapy but per his last Oncology visit his bone cancer continues to progress slowly. Pt notes he is able to meet his own ALDs for now but has been told he may need either in-home care or assisted living in the near future * Pain meds cont to be effective and without SE per pt * Pt notes increasing number of ' bad ' pain days but cont to maintain his ADLs at home * Pt keeping up with ADLs and HEPs * Pt note no new issues, illnesses or injuries at this time * Pt had no new questions about POC at this time 1) Pain Management : Will cont Gabapentin as Rx'ed but increase Hydrocodone 10/325 mg to QID+ dosing to help with the occasional increased BTP as noted above If this is not effective will discuss with patient at next OV the option of changing to Oxycodone 2) PT: Cont HEP as tolerated ; Encourage use of Moist Heat , Massage, Acupressure , Acupuncture, Meditation and /or Pool therapy to aid pain management 3) BH: Encourage Activity in Moderation with Rest Breaks 4) IP: Pt not a good candidate for IP due to on good cancer therapy [email or web address] Not available 06/16/2025 10:11:07 Plan of Treatment Reminders Order Date Submit Date Provider Last Modified By Organization Details Last Modified Time Details Appointments Office Visit15 2025 10:00A Carroll Iverson DNP SUSTAINABLE DEVELOPMENT POLICY ANALYST Not available Not available Not available Lab drug screen, urine - Meds: hydrocodo ne, gabapenti n 2024 STACIE Sadler MD [facility] ([facility]), [address] [place], [address], 06/22/2025 10:42:53 Referral None recorded. Procedures None recorded. Surgeries None recorded. Imaging None recorded. Medication Orders hydrocodo ne 10 mg-acetam inophen 325 mg tablet 2024 [facility] [id number], [address] [place] [address], [address], [address], 06/16/2025 11:11:00 hydrocodo ne 10 mg-acetam inophen 325 mg tablet 2024 [facility] [id number], [address] [place] [address], [facility] [address], [place], [address], 06/16/2025 11:10:56 gabapenti n 800 mg tablet 2024 [facility] [id number], [address] [place] [address], [facility] [address], [address], 06/16/2025 11:10:54 Patient TargetsNo targets recorded. Patient InstructionsNo instructions recorded. Reason for Referral None Reported. Results Created Date Observation Date Name Description Value Unit Range Abnormal Flag Note LastModifiedBy Organization Detail LastModifiedTime 06/16/2006/16/2025 GABAP ENTIN abnormal status abnormal Not Available Shaheed Sadler MD [facility] (In House [facility]) [address] [place], [address], 06/22/2025 10:42:55 06/16/2006/16/2025 GABAP ENTIN abnormal status high Not Available Shaheed Sadler MD [facility] (In House Lab) [address] [place] [address], [address], 06/22/2025 10:42:55 06/16/20 25 06/21/2025 OPIAT E DEFIN ITIVE PANEL LC/MS codeine 0.0 NG/mL <75.0 Not Available Rach Sadler MD [facility] (In House Lab) [address] [place] [address], [address], 06/22/2025 10:42:54 06/16/20 25 06/21/2025 OPIAT E DEFIN ITIVE PANEL LC/MS morphine 0 NG/mL <75.0 Not Available Rach Sadler MD [facility] (In House Lab) [address] [place] [address], [address], 06/22/2025 10:42:54 06/16/20 25 06/21/2025 OPIAT E DEFIN ITIVE PANEL LC/MS 6-FRANDY 0 NG/mL <15.0 Not Available Rach Sadler MD [facility] (In House Lab) [address] [place] [address], [address], 06/22/2025 10:42:54 06/16/20 25 06/21/2025 OPIAT E DEFIN ITIVE PANEL LC/MS hydromorphon e 1698.6 NG/mL <75.0 abnormal Not Available Shaheed Sadler MD [facility] (In House Lab) [address] [place] [address], [address], 06/22/2025 10:42:54 06/16/20 25 06/21/2025 OPIAT E DEFIN ITIVE PANEL LC/MS hydrocodone >5000 NG/mL <75.0 abnormal Not Available Butch Sadler MD [facility] (In House Lab) [address] [place] [address], [address], 06/22/2025 10:42:54 06/16/20 25 06/21/2025 OPIAT E DEFIN ITIVE PANEL LC/MS norhydrocodo ne 2269.1 NG/mL <75.0 abnormal Not Available Shaheed Sadler MD [facility] (In House Lab) [address] [place] [address], [address], 06/22/2025 10:42:54 06/16/20 25 06/21/2025 GABAP ENTIN DEFIN ITIVE PANEL -LC/M S gabapentin >82283 NG/mL <5000. 0 abnormal Not Available Rach Sadler MD [facility] (In House Lab) [address] [place] [address], [address], 06/22/2025 10:42:54 06/16/20 25 06/17/2025 D-PRE SUMPT DARLYN URINE DRUG REPOR T amphetamine NEGATI VE NG/mL <1000. 0 Not Available Rach Sadler MD [facility] (In House Lab) [address] [place] [address], [address], 06/22/2025 10:42:53 06/16/20 25 06/17/2025 D-PRE SUMPT DARLYN URINE DRUG REPOR T benzodiazepi ne <3.3 NG/mL <200.0 Curre nt metho d may not detec t low level s of [place] pin Not Available Rach Sadler MD [facility] (In House Lab) [address] [place] [address], [address], 06/22/2025 10:42:53 06/16/20 25 06/17/2025 D-PRE SUMPT DARLYN URINE DRUG REPOR T buprenorphin e NEGATI VE NG/mL <10.0 Not Available Rach Sadler MD [facility] (In House Lab) [address] [place] [address], [address], 06/22/2025 10:42:53 06/16/20 25 06/17/2025 D-PRE SUMPT DARLYN URINE DRUG REPOR T cannabinoid NEGATI VE NG/mL <50.0 Not Available Rach Sadler MD [facility] (In House Lab) [address] [place] [address], [address], 06/22/2025 10:42:53 06/16/20 25 06/17/2025 D-PRE SUMPT DARLYN URINE DRUG REPOR T cocaine NEGATI VE NG/mL <300.0 Not Available Rach Sadler MD [facility] (In House Lab) [address] [place] [address], [address], 06/22/2025 10:42:53 06/16/20 25 06/17/2025 D-PRE SUMPT DARLYN URINE DRUG REPOR T ethanol NEGATI VE mg/dL <50.0 Not Available Rach Sadler MD [facility] (In House [facility]) [address] [place] [address], [address], 06/22/2025 10:42:53 06/16/20 25 06/17/2025 D-PRE SUMPT DARLYN URINE DRUG REPOR T methadone 19.0 NG/mL <300.0 Not Available Rach Sadler MD [facility] (In House [facility]) [address] [place] [address], [address], 06/22/2025 10:42:53 06/16/20 25 06/17/2025 D-PRE SUMPT DARLYN URINE DRUG REPOR T opiates 1206.0 NG/mL <300.0 high Opiat es inclu daniele Codei ne,Mo rphin e, [place] morph one,H ydroc odone Not Available Rach Sadler MD [facility] (In House [facility]) [address] [place] [address], [address], 06/22/2025 10:42:53 06/16/20 25 06/17/2025 D-PRE SUMPT DARLYN URINE DRUG REPOR T oxycodone 37.0 NG/mL <300.0 Not Available Rach Sadler MD [facility] (In House [facility]) [address] [place] [address], [address], 06/22/2025 10:42:53 06/16/20 25 06/17/2025 D-PRE SUMPT DARLYN URINE DRUG REPOR T urine creatinine (validity test) 137.2 mg/dL 20.0 - 300.0 Not Available Rach Sadler MD [facility] ([facility] House [facility]) [address] [place] [address], [address], 06/22/2025 10:42:53 Result Notes None recorded. 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 26658803 Active 2020 (M47.816) Spondylos is without myelopath y or radiculop athy, lumbar region Not Available [facility] 2 22:51:19 Lumbosacr al spondylos is without myelopath y 88190771 Active 2020 (M47.817) Spondylos is without myelopath y or radiculop athy, lumbosacr al region Not Available [facility] 2 22:51:19 Degenerat ion of lumbosacr al intervert ebral disc 26778977 Active 2020 (M51.37)O ther intervert ebral disc degenerat ion, lumbosacr al region Not Available [facility] 2 22:51:19 Lumbosacr al radiculop athy 8425106 Active 2020 (M54.17)R adiculopa thy, lumbosacr al region Not Available [facility] 2 22:51:19 Opioid dependenc e 28748545 Active 2020 (F11.20)O pioid dependenc e, uncomplic ated Not Available [facility] 2 22:51:18 Long-term current use of opiate analgesic drug 45854644607 4108 Active 2020 (z79.891) custodial (current) use of opiate analgesic Not Available [facility] 2 22:51:19 Pre-surge ry testing Active 2020 (Z01.812) Encounter for preproced ural laborator y examinati on Not Available [facility] 2 22:51:19 Muscle pain 70373013 Active 2020 (M79.1)My algia Not Available [facility] 2 22:51:19 Lumbosacr al spondylos is with radiculop athy 068607203 Active 2020 (M47.27)O ther spondylos is with radiculop athy, lumbosacr al region Not Available [facility] 2 22:51:19 Idiopathi c osteoarth ritis 380884943 Active 2021 (M17.0)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 2 09:21:38 Lumbar spondylos is 572143676 Active 2023 Karthik Lazo MD [address] [facility] , [place], [address] , [facility] 4 09:59:39 Cancer 982524915 Active 2024 Karthik Lazo MD [address] [place], [address] , [facility] 5 08:46:13 Fibromyos itis 94402006 Active 2024 Karthik Lazo MD [address] [place], [address] , [facility] 5 08:46:25 [...] Not Available Vitals Date Recorded Body height Body mass index (BMI) Body weight Body temperature Heart rate Oxygen saturation Systolic And Diastolic Provider Name and Address Organization Details Last Updated DateTime 5 175.26 cm 27.2 kg/m2 11054 g 97.4 [degF] 104 /min 98 % 110/80 mm[Hg] [facility] 5 09:48:55 Social History Question Answer Notes LastModified by Organizat ion Details LastModified Time Tobacco Smoking Status Never Smoker [facility] 12/25/2022 08:05:25 What Is Your Level Of Caffeine Consumption? Moderate 2 SODAS [email or web address] Information not available 12/25/2022 Sex: Unknown Functional Status Question Answer Note LastModified by Organization D etails LastModified Time What is your level of alcohol consumption? None Information not available 12/25/2022 Mental Status None recorded. Family History Nothing Reported. Medical History No medical history recorded. Immunizations Vaccine Type Date Status Note Provider Nam e and Address Organization Details Recorded Time SARS-COV-2 (COVID-19) vaccine, UNSPECIFIED 03/31/2023 completed [facility] 04/01/2023 08:59:09 Past Encounters Encounter ID Performer Location Encounter Start Date Encounter Closed Date Diagnosis/Indication Diagnosis SNOMED-CT Code Diagnosis ICD10 Code Diagnosis IMO Codes Diagnosis Note [id number] Stone Barbosa MD [address] [place] [address] 06/16/2025 09:35:49 06/23/2025 11:28:26 Long-term current use of opiate analgesic drug 2949882970 78990 Z79.891 Diagnostic /Lab: Order Presumptiv e UDT (necessary for rapid results) with Definitive confirmati on for chronic pain patient, to define treatment and reinforce therapeuti c compliance ; the following apply: [Presumpti ve UDT includes: (Amp, Adriana, Osmel, Bup, THC, ANDREWS, ETOH, Meth, Opi, Oxy )] *-Patient is receiving controlled medication s. *-Presumpt darlyn UDT to identify presence of illicit/no n-prescrib ed substance( s) - Confirm positive for ongoing safe prescribin g of controlled substances . *-Presumpt darlyn UDT to identify presence of licit/pres cribed substance( s)-Confirm unexpected results, identify specific drug(s) in large class and ensure appropriat e use of prescribed medication (s). *-Definiti ve UDT inadequate ly detected by Presumptiv e UDT (gabapenti n, pregabalin , tramadol, fentanyl, tapentadol and carisoprod ol). Lumbosacra l spondylosis with radiculopathy 984822938 M47.27 Lumbar spondylosis 69068 0009 M47.896 Lumbosacra l radiculopathy 7745431 M54.17 Malignant neoplastic disease 655485469 C80.1 32323 Pain in left knee 126040 8443 48605 M25.562 Pain in right knee 24337 44653 30715 M25.561 Health Concerns Section Related Observation LastModified by Organization Detai ls LastModified Time None Recorded Concern Status LastModified by Organization Details LastModified Time None Recorded Payers Encounter Date Sequence Insurance Name Policy Number Policy H[place] Covered Member ID Hancock Member ID Guarantor Name 06/16/2025 1 [place] Noe Caraballo [id number] Noe Caraballo 06/16/2025 2 [employer] [place] (MEDICAID HMO) [id number] Noe Caraballo [id number] Noe Caraballo Notes Date Note Type Note Provider Name and Address Organization Details Recorded Time 06/16/20 25 text/htm l 75 y/o Male C/O Chronic Lower Back Pain. D/T Lumbar/LS DDD, Spondylosis, RadiculopathyComplicated by : 1) BL Knee Pain (Primary OA) 2) Fibromyalgia 3) Malignant Neoplasm of the Bone * ACME = 40 : 05/23/25 -- Hydrocodone APAP 10/325 mg QID PRN and 05/28/25 -- Gabapentin 800 mg QID * UDS 02/10/25 = OK * Pt reports he cont on Oral Chemotherapy but per his last Oncology visit his bone cancer continues to progress slowly. Pt notes he is able to meet his own ALDs for now but has been told he may need either in-home care or assisted living in the near future * Pain meds cont to be effective and without SE per pt * Pt notes increasing number of ' bad ' pain days but cont to maintain his ADLs at home * Pt keeping up with ADLs and HEPs * Pt note no new issues, illnesses or injuries at this time * Pt had no new questions about POC at this time Marco Barbosa MD [address] [facility], [place], [address], [facility] 06/16/2025 11:11:01
--- OUTSIDE RECORDS SUMMARY | 2025-06-26 10:30 | XMS_ITS | Data Portability ---
Author Organization [facility] [employer] - Rach Sanchez MD [facility] Address [address] [place] [id number] Assessment Encounter Date Assessment Date Assessment LastModified [...] Details Appointments Office Visit15 2025 10:00A Carroll Iverson, [employer] Not available Not available Not available Lab drug screen, urine - Meds: hydrocodo ne, gabapenti n 2024 025 STACIE Sanchez MD [facility] (In House Lab), [address] [place] [address], [address], 06/22/2025 10:42:53 drug screen, urine - Meds: [place] gabapenti n 2024 025 STACIE Sanchez MD [facility] (In House Lab), [address] [place] [address], [address], 02/16/2025 09:15:52 drug screen, urine - Meds: HYDROCODO NE GABAPENTI N SS 2024 025 STACIE Sanchez MD [facility] (In House Lab), [address] [place] [address], [address], 11/16/2024 11:42:05 CBC w/ auto diff 2024 025 [email or web address] Sanchez MD [facility] (In House Lab), [address] [place] [address], [address], 10/29/2024 08:21:25 hepatic function panel, serum 2024 025 [email or web address] 159 Rach Sanchez MD [facility] (In House Lab), [address] [place] [address], [address], 11/12/2024 11:03:12 gamma-glu tamyl transfera se (ggt), serum 2024 025 [email or web address] Sanchez MD [facility] (In House Lab), [address] [place] [address], [address], 10/29/2024 08:21:25 venipunct ure 2024 [email or web address] 159 Rach Sanchez MD [facility] (In House Lab), [address] [place], [address], 11/12/2024 11:03:13 Referral None recorded. Procedures None recorded. Surgeries None recorded. Imaging None recorded. Medication Orders hydrocodo ne 10 mg-acetam inophen 325 mg tablet 2024 [facility] [id number], [address] [facility], [address], [place], [address], 06/16/2025 11:11:00 hydrocodo ne 10 mg-acetam inophen 325 mg tablet 2024 [facility] [id number], [address] [place] [address], [address], [place], [address], 06/16/2025 11:10:56 gabapenti n 800 mg tablet 2024 [facility] [id number], [address] [facility], [address], [place], [address], 06/16/2025 11:10:54 hydrocodo ne 10 mg-acetam inophen 325 mg tablet 2024 025 [facility] [id number], [address] [facility], [address], [place], [address], 04/15/2025 17:29:41 gabapenti n 800 mg tablet 2024 025 [facility] [id number], [address] [facility], [address], [place], [address], 04/15/2025 17:29:44 hydrocodo ne 10 mg-acetam inophen 325 mg tablet 2024 025 [facility] [id number], [address] [place] [address], [place], [place], [address], 04/15/2025 17:29:47 hydrocodo ne 10 mg-acetam inophen 325 mg tablet 2024 025 [facility] [id number], [address] [place] [address], [facility] [address], [address], 02/10/2025 12:57:19 hydrocodo ne 10 mg-acetam inophen 325 mg tablet 2024 025 [facility] [id number], [address] [facility], [address], [place], [address], 02/10/2025 12:57:17 gabapenti n 800 mg tablet [address] [place], [place] [address]Pharmacy [id number], [address] [place], [address], 02/10/2025 12:57:16 hydrocodo ne 7.5 mg-acetam inophen 325 mg tablet [address] [place], [place] [address]Pharmacy [id number], [address] [place], [address], 12/15/2024 08:51:36 Neuropath ic Pain Cream [address] [place], [place] [address]Pharmacy [facility], [address] [place], [address], 12/15/2024 08:51:36 gabapenti n 800 mg tablet [address] [place], [place] [address]Pharmacy [facility], [address] , [place], [address], 12/15/2024 08:51:36 hydrocodo ne 7.5 mg-acetam inophen 325 mg tablet [address] [place], [place] [address]Pharmacy [facility], [address] [place], [address], 12/15/2024 08:51:36 hydrocodo ne 7.5 mg-acetam inophen 325 mg tablet 2024 025 [id number] [facility], [address], [place], [address], 10/29/2024 10:02:23 gabapenti n 800 mg tablet 2024 025 [id number] [facility], [address], [place], [address], 10/29/2024 10:02:26 hydrocodo ne 7.5 mg-acetam inophen 325 mg tablet 2024 025 [id number] [id number], [address], [place], [address], 10/29/2024 10:02:23 Patient TargetsNo targets recorded. Patient Instructions Encounter Date Encounter Id Patient Instructions Last Modified By Organization Details Last Modified Time 10/22/2024 [id number] 1. continue healthy lifestyles 2. stretching/yoga/w alking as tolerated 3. take pain medications as prescribed 4. call with any concerns [email or web address] Not available 10/22/2024 09:18:02 Patient seen today incident to a physician s previously established diagnosis and plan of care. Follow-up care provided today under the plan of care of: Karthik Lazo MD and supervision of: aMrco Barbosa MD. Not available 10/22/2024 09:18:31 12/15/2024 [id number] 1. continue healthy lifestyles 2. stretching/yoga/w alking as tolerated 3. take pain medications as prescribed 4. 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 Patient seen today incident to a physician s previously established diagnosis and plan of care. Follow-up care provided today under the plan of care of: Karthik Lazo MD and supervision of: Torsten Jackson MD. [email or web address] Not available 12/15/2024 08:45:31 04/15/2025 [id number] 1. continue healthy lifestyles 2. stretching/yoga/w alking as tolerated 3. take pain medications as prescribed 4. call with any concerns [email or web address] Not available 04/15/2025 09:31:04 Patient seen today incident to a physician s previously established diagnosis and plan of care. Follow-up care provided today under the plan of care of: Karthik Lazo MD and supervision of: Marco Barbosa MD. [email or web address] Not available 04/15/2025 09:33:03 Reason for Referral None Reported. Results Created Date Observation Date Name Description Value Unit Range Abnormal Flag Note LastModifiedBy Organization Detail LastModifiedTime 10/23/1910/22/2024 GABAP ENTIN abnormal status abnormal Not Available Shaheed Sanchez MD [facility] ([facility] House Lab) [address] [place] [address], [address], 11/16/2024 11:42:08 10/23/19 25 10/22/2024 GABAP ENTIN abnormal status high Not Available Shaheed Sanchez MD [facility] ([facility]) [address] [place] [address], [address], 11/16/2024 11:42:08 10/23/19 25 11/16/2024 OPIAT E DEFIN ITIVE PANEL LC/MS codeine 0.0 NG/mL <75.0 Not Available Rach Sanchez MD [facility] ([facility]) [address] [place] [address], [address], 11/16/2024 11:42:07 10/23/19 25 11/16/2024 OPIAT E DEFIN ITIVE PANEL LC/MS morphine 0 NG/mL <75.0 Not Available Rach Sanchez MD [facility] ([facility]) [address] [place] [address], [address], 11/16/2024 11:42:07 10/23/19 25 11/16/2024 OPIAT E DEFIN ITIVE PANEL LC/MS 6-FRANDY 0 NG/mL <15.0 Not Available Rach Sanchez MD [facility] ([facility]) [address] [place] [address], [address], 11/16/2024 11:42:07 04/24/20 25 11/16/2024 OPIAT E DEFIN ITIVE PANEL LC/MS hydromorphon e 1589.7 NG/mL <75.0 abnormal Not Available Shaheed Sanchez MD [facility] (In House Lab) [address] [place] [address], [address], 11/16/2024 11:42:07 10/23/19 25 11/16/2024 OPIAT E DEFIN ITIVE PANEL LC/MS hydrocodone 703.8 NG/mL <75.0 abnormal Not Available Butch Sanchez MD [facility] (In House Lab) [address] [place] [address], [address], 11/16/2024 11:42:07 10/23/19 25 11/16/2024 OPIAT E DEFIN ITIVE PANEL LC/MS norhydrocodo ne 1120.4 NG/mL <75.0 abnormal Not Available Shaheed Sanchez MD [facility] (In House [facility]) [address] [place] [address], [address], 11/16/2024 11:42:07 10/23/19 25 11/16/2024 GABAP ENTIN DEFIN ITIVE PANEL -LC/M S gabapentin >56006 NG/mL <5000. 0 abnormal Not Available Rach Sanchez MD [facility] (In House [facility]) [address] [place] [address], [address], 11/16/2024 11:42:06 10/23/19 25 10/22/2024 D-PRE SUMPT DARLYN URINE DRUG REPOR T amphetamine NEGATI VE NG/mL <1000. 0 Not Available Rach Sanchez MD [facility] (In House [facility]) [address] [place] [address], [address], 11/16/2024 11:42:05 10/23/19 25 10/22/2024 D-PRE SUMPT DARLYN URINE DRUG REPOR T benzodiazepi ne <3.3 NG/mL <200.0 Curre nt metho d may not detec t low level s of Klono pin Not Available Rach Sanchez MD [facility] (In House [facility]) [address] [place] [address], [address], 11/16/2024 11:42:05 10/23/19 25 10/22/2024 D-PRE SUMPT DARLYN URINE DRUG REPOR T buprenorphin e NEGATI VE NG/mL <10.0 Not Available Rach Sanchez MD [facility] (In House [facility]) [address] [place] [address], 27[address], 11/16/2024 11:42:05 10/23/19 25 10/22/2024 D-PRE SUMPT DARLYN URINE DRUG REPOR T cannabinoid NEGATI VE NG/mL <50.0 Not Available Rach Sanchez MD [facility] (In House [facility]) [address] [place] [address], [address], 11/16/2024 11:42:05 10/23/19 25 10/22/2024 D-PRE SUMPT DARLYN URINE DRUG REPOR T cocaine NEGATI VE NG/mL <300.0 Not Available Rach Sanchez MD [facility] (In House [facility]) [address] [place] [address], 46[address], 11/16/2024 11:42:05 10/23/19 25 10/22/2024 D-PRE SUMPT DARLYN URINE DRUG REPOR T ethanol NEGATI VE mg/dL <50.0 Not Available Rach Sanchez MD [facility] (In House [facility]) [address] [place] [address], [address]350[address], 11/16/2024 11:42:05 10/23/19 25 10/22/2024 D-PRE SUMPT DARLYN URINE DRUG REPOR T methadone <0.8 NG/mL <300.0 Not Available Rach Sanchez MD [facility] (In House [facility]) [address] [place] [address], 896[address], 11/16/2024 11:42:05 10/23/19 25 10/22/2024 D-PRE SUMPT DARLYN URINE DRUG REPOR T opiates 793.0 NG/mL <300.0 high Opiat es inclu daniele Codei ne,Mo rphin e, [place] morph one,H ydroc odone Not Available Rach Sanchez MD [facility] (In House Lab) [address] [place] [address], [address], 11/16/2024 11:42:05 10/23/19 25 10/22/2024 D-PRE SUMPT DARLYN URINE DRUG REPOR T oxycodone 9.0 NG/mL <300.0 Not Available Rach Sanchez MD [facility] ([facility]) [address] [place] [address], 118[address], 11/16/2024 11:42:05 10/23/19 25 10/22/2024 D-PRE SUMPT DARLYN URINE DRUG REPOR T urine creatinine (validity test) 63.2 mg/dL 20.0 - 300.0 Not Available Rach Sanchez MD [facility] (In [facility]) [address] [place] [address], [address], 11/16/2024 11:42:05 02/11/20 25 02/10/2025 GABAP ENTIN abnormal status abnormal Not Available Shaheed Sanchez MD [facility] (In House [facility]) [address] [place] [address], [address], 02/16/2025 09:15:55 02/11/2002/10/2025 GABAP ENTIN abnormal status high Not Available Shaheed Sanchez MD [facility] (In House [facility]) [address] [place] [address], 765[address], 02/16/2025 09:15:55 02/11/20 25 02/16/2025 OPIAT E DEFIN ITIVE PANEL LC/MS codeine 0.0 NG/mL <75.0 Not Available Rach Sanchez MD [facility] (In House [facility]) [address] [place] [address], 80[address], 02/16/2025 09:15:54 02/11/20 25 02/16/2025 OPIAT E DEFIN ITIVE PANEL LC/MS morphine 0 NG/mL <75.0 Not Available Rach Sanchez MD [facility] (In House [facility]) [address] [place] [address], 94[address], 02/16/2025 09:15:54 02/11/20 25 02/16/2025 OPIAT E DEFIN ITIVE PANEL LC/MS 6-FRANDY 0 NG/mL <15.0 Not Available Rach Sanchez MD [facility] (In House [facility]) [address] [place] [address], 50570, 02/16/2025 09:15:54 02/11/2002/16/2025 OPIAT E DEFIN ITIVE PANEL LC/MS hydromorphon e 1931.4 NG/mL <75.0 abnormal Not Available Shaheed Sanchez MD [facility] (In House [facility]) [address] [place] [address], 827[address], 02/16/2025 09:15:54 02/11/2002/16/2025 OPIAT E DEFIN ITIVE PANEL LC/MS hydrocodone 1663.4 NG/mL <75.0 abnormal Not Available Butch Sanchez MD [facility] (In House [facility]) [address] [place] [address], 65[address], 02/16/2025 09:15:54 02/11/2002/16/2025 OPIAT E DEFIN ITIVE PANEL LC/MS norhydrocodo ne 1789.3 NG/mL <75.0 abnormal Not Available Shaheed Sanchez MD [facility] (In House [facility]) [address] [place] [address], 66359, 02/16/2025 09:15:54 02/11/2002/16/2025 GABAP ENTIN DEFIN ITIVE PANEL -LC/M S gabapentin >78573 NG/mL <5000. 0 abnormal Not Available Rach Sanchez MD [facility] (In House [facility]) [address] [place] [address], 72756, 02/16/2025 09:15:53 02/11/2002/10/2025 D-PRE SUMPT DARLYN URINE DRUG REPOR T amphetamine NEGATI VE NG/mL <1000. 0 Not Available Rach Sanchez MD [facility] (In House [facility]) [address] [place] [address], 66[address], 02/16/2025 09:15:52 02/11/20 25 02/10/2025 D-PRE SUMPT DARLYN URINE DRUG REPOR T benzodiazepi ne <3.3 NG/mL <200.0 Curre nt metho d may not detec t low level s of Klono pin Not Available Rach Sanchez MD [facility] (In House [facility]) [address] [place] [address], 68[address], 02/16/2025 09:15:52 02/11/20 25 02/10/2025 D-PRE SUMPT DARLYN URINE DRUG REPOR T buprenorphin e NEGATI VE NG/mL <10.0 Not Available Rach Sanchez MD [facility] (In House [facility]) [address] [place] [address], 13930, 02/16/2025 09:15:52 02/11/20 25 02/10/2025 D-PRE SUMPT DARLYN URINE DRUG REPOR T cannabinoid NEGATI VE NG/mL <50.0 Not Available Rach Sanchez MD [facility] (In [facility]) [address] [place] [address], 25057, 02/16/2025 09:15:52 02/11/20 25 02/10/2025 D-PRE SUMPT DALRYN URINE DRUG REPOR T cocaine NEGATI VE NG/mL <300.0 Not Available Rach Sanchez MD [facility] (In House [facility]) [address] [place] [address], 41913, 02/16/2025 09:15:52 02/11/20 25 02/10/2025 D-PRE SUMPT DARLYN URINE DRUG REPOR T ethanol NEGATI VE mg/dL <50.0 Not Available Rach Sanchez MD [facility] (In House [facility]) [address] [place] [address], 51082, 02/16/2025 09:15:52 02/11/20 25 02/10/2025 D-PRE SUMPT DARLYN URINE DRUG REPOR T methadone <0.8 NG/mL <300.0 Not Available Rach Sanchez MD [facility] (In House [facility]) [address] [place] [address], 24856, 02/16/2025 09:15:52 02/11/20 25 02/10/2025 D-PRE SUMPT DARLYN URINE DRUG REPOR T opiates 1018.0 NG/mL <300.0 high Opiat es inclu daniele Codei ne,Mo rphin e, [place] morph one,H ydroc odone Not Available Rach Sanchez MD [facility] (In House [facility]) [address] [place] [address], 85909, 02/16/2025 09:15:52 02/11/20 25 02/10/2025 D-PRE SUMPT DARLYN URINE DRUG REPOR T oxycodone 14.0 NG/mL <300.0 Not Available Rach Sanchez MD [facility] (In [facility]) [address] [place] [address], 07476, 02/16/2025 09:15:52 02/11/20 25 02/10/2025 D-PRE SUMPT DALRYN URINE DRUG REPOR T urine creatinine (validity test) 118.3 mg/dL 20.0 - 300.0 Not Available Rach Sanchez MD [facility] (In House [facility]) [address] [place] [address], 56461, 02/16/2025 09:15:52 06/16/20 25 06/16/2025 GABAP ENTIN abnormal status abnormal Not Available Shaheed Sanchez MD [facility] (In House [facility]) [address] [place] [address], 94238, 06/22/2025 10:42:55 06/16/20 25 06/16/2025 GABAP ENTIN abnormal status high Not Available Shaheed Sanchez MD [facility] (In House [facility]) [address] [place] [address], 48659, 06/22/2025 10:42:55 06/16/20 25 06/21/2025 OPIAT E DEFIN ITIVE PANEL LC/MS codeine 0.0 NG/mL <75.0 Not Available Rach Sanchez MD [facility] (In House [facility]) [address] [place] [address], 68296, 06/22/2025 10:42:54 06/16/20 25 06/21/2025 OPIAT E DEFIN ITIVE PANEL LC/MS morphine 0 NG/mL <75.0 Not Available Rach Sanchez MD [facility] (In House [facility]) [address] [place] [address], 26630, 06/22/2025 10:42:54 06/16/20 25 06/21/2025 OPIAT E DEFIN ITIVE PANEL LC/MS 6-FRANDY 0 NG/mL <15.0 Not Available Rach Sanchez MD [facility] (In House [facility]) [address] [place] [address], 82836, 06/22/2025 10:42:54 06/16/20 25 06/21/2025 OPIAT E DEFIN ITIVE PANEL LC/MS hydromorphon e 1698.6 NG/mL <75.0 abnormal Not Available Shaheed Sanchez MD [facility] (In House [facility]) [address] [place] [address], 54409, 06/22/2025 10:42:54 06/16/20 25 06/21/2025 OPIAT E DEFIN ITIVE PANEL LC/MS hydrocodone >5000 NG/mL <75.0 abnormal Not Available Butch Sanchez MD [facility] (In House [facility]) [address] [place] [address], 23955, 06/22/2025 10:42:54 06/16/20 25 06/21/2025 OPIAT E DEFIN ITIVE PANEL LC/MS norhydrocodo ne 2269.1 NG/mL <75.0 abnormal Not Available Shaheed Sanchez MD [facility] (In House [facility]) [address] [place] [address], 47838, 06/22/2025 10:42:54 06/16/20 25 06/21/2025 GABAP ENTIN DEFIN ITIVE PANEL -LC/M S gabapentin >71127 NG/mL <5000. 0 abnormal Not Available Rach Sanchez MD [facility] (In House [facility]) [address] [place] [address], 83397, 06/22/2025 10:42:54 06/16/20 25 06/17/2025 D-PRE SUMPT DARLYN URINE DRUG REPOR T amphetamine NEGATI VE NG/mL <1000. 0 Not Available Rach Sanchez MD [facility] (In House [facility]) [address] [place] [address], 81325, 06/22/2025 10:42:53 06/16/20 25 06/17/2025 D-PRE SUMPT DARLYN URINE DRUG REPOR T benzodiazepi ne <3.3 NG/mL <200.0 Curre nt metho d may not detec t low level s of Klono pin Not Available Rach Sanchez MD [facility] (In House [facility]) [address] [place] [address], 42174, 06/22/2025 10:42:53 06/16/20 25 06/17/2025 D-PRE SUMPT DARLYN URINE DRUG REPOR T buprenorphin e NEGATI VE NG/mL <10.0 Not Available Rach Sanchez MD [facility] (In House [facility]) [address] [place] [address], 30962, 06/22/2025 10:42:53 06/16/20 25 06/17/2025 D-PRE SUMPT DARLYN URINE DRUG REPOR T cannabinoid NEGATI VE NG/mL <50.0 Not Available Rach Sanchez MD [facility] (In House [facility]) [address] [place] [address], 00125, 06/22/2025 10:42:53 06/16/20 25 06/17/2025 D-PRE SUMPT DARLYN URINE DRUG REPOR T cocaine NEGATI VE NG/mL <300.0 Not Available Rach Sanchez MD [facility] (In House [facility]) [address] [place] [address], 40185, 06/22/2025 10:42:53 06/16/20 25 06/17/2025 D-PRE SUMPT DARLYN URINE DRUG REPOR T ethanol NEGATI VE mg/dL <50.0 Not Available Rach Sanchez MD [facility] (In House [facility]) [address] [place] [address] [place], [address], 06/22/2025 10:42:53 06/16/20 25 06/17/2025 D-PRE SUMPT DARLYN URINE DRUG REPOR T methadone 19.0 NG/mL <300.0 Not Available Rahc Sanchez MD [facility] ([facility]) [address] [place] [address], 73377, 06/22/2025 10:42:53 06/16/20 25 06/17/2025 D-PRE SUMPT DARLYN URINE DRUG REPOR T opiates 1206.0 NG/mL <300.0 high Opiat es inclu daniele Codei ne,Mo rphin e, [place] morph one,H ydroc odone Not Available Rach Sanchez MD [facility] ([facility]) [address] [place] [address], 06464, 06/22/2025 10:42:53 06/16/20 25 06/17/2025 D-PRE SUMPT DARLYN URINE DRUG REPOR T oxycodone 37.0 NG/mL <300.0 Not Available Rach Sanchez MD [facility] ([facility]) [address] [place] [address], 78250, 06/22/2025 10:42:53 06/16/20 25 06/17/2025 D-PRE SUMPT DARLYN URINE DRUG REPOR T urine creatinine (validity test) 137.2 mg/dL 20.0 - 300.0 Not Available Rach Sanchez MD [facility] ([facility]) [address] [place] [address], 54971, 06/22/2025 10:42:53 Result Notes None recorded. Problems Name Problem SNOMED Code Status Onset Date Resolution Date Notes Provider Name and Address Organization Details Recorded Time Chronic pain 31014459 Active 2020 (G89.29)O ther chronic pain Not Available [facility] 2 22:51:18 Pain in right knee Active 2020 (M25.561) Pain in right knee Not Available [facility] 2 22:51:19 Pain in left knee Active 2020 (M25.562) Pain in left knee Not Available 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 2 22:51:19 Lumbosacr al radiculop athy 1393016 Active 2020 (M54.17)R adiculopa thy, lumbosacr al region Not Available [facility] 2 22:51:19 Opioid dependenc e 03162181 Active 2020 (F11.20)O pioid dependenc e, uncomplic ated Not Available 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 2 22:51:19 Muscle pain 12412724 Active 2020 (M79.1)My algia Not Available [facility] 2 22:51:19 Lumbosacr al spondylos is with radiculop athy 985389404 Active 2020 (M47.27)O ther spondylos is with radiculop athy, lumbosacr al region Not Available [facility] 2 22:51:19 Idiopathi c osteoarth ritis 589412315 Active 2021 (M17.0)Bi lateral primary osteoarth ritis of knee Not Available [facility] 2 22:51:18 Spasm of back muscles 561984573 Active 2021 Iqra pompa, [facility] 2 09:21:38 Lumbar spondylos is 242068308 Active 2023 Karthik Lazo MD [address], [place], [address] , [facility] 4 09:59:39 Cancer 320305166 Active 2024 Karthik Lazo MD [address], [place], [address] , [facility] 5 08:46:13 Fibromyos itis 97941810 Active 2024 Karthik Lazo MD [address] [place], [address] , [facility] 5 08:46:25 Problem Notes None [...] mass index (BMI) Body weight Body temperature Systolic And Diastolic Provider Name and Address Organization Details Last Updated DateTime 5 175.26 cm 18 /min 28.1 kg/m2 30103.5 5 g 97.9 [degF] 98/60 mm[Hg] Rita [facility] 5 08:57:21 Date Recorded Body height Respiratory rate Body temperature Body mass index (BMI) Body weight Heart rate Systolic And Diastolic Provider Name and Address Organization Details Last Updated DateTime 5 175.26 cm 18 /min 97.9 [degF] 28.1 kg/m2 51691.5 5 g 80 /min 108/57 mm[Hg] Rita [facility] 5 07:53:51 Date Recorded Body height Respiratory rate Body temperature Body mass index (BMI) Body weight Heart rate Systolic And Diastolic Provider Name and Address Organization Details Last Updated DateTime 5 175.26 cm 18 /min 98.3 [degF] 25.5 kg/m2 87659.4 8 g 95 /min 111/71 mm[Hg] Rita [facility] 5 08:08:59 Date Recorded Body height Respiratory rate Body mass index (BMI) Body weight Body temperature Heart rate Systolic And Diastolic Provider Name and Address Organization Details Last Updated DateTime 5 175.26 cm 18 /min 27.2 kg/m2 02890 g 96.9 [degF] 91 /min 118/77 mm[Hg] Rita FuentesYancy charlotte [facility] 5 09:04:51 Date Recorded Body height Body mass index (BMI) Body weight Body temperature Heart rate Oxygen saturation Systolic And Diastolic Provider Name and Address Organization Details Last Updated DateTime 5 175.26 cm 27.2 kg/m2 43998 g 97.4 [degF] 104 /min 98 % 110/80 mm[Hg] [facility] 5 09:48:55 Social History Question Answer Notes LastModified by Organizat ion Details LastModified Time Tobacco Smoking Status Never Smoker Ronald FADIA [facility] 12/25/2022 08:05:25 What Is Your Level Of Caffeine Consumption? Moderate 2 SODAS [email or web address] Information not available 12/25/2022 Sex: Unknown Functional Status Question Answer Note LastModified by Organization D etails LastModified Time What is your level of alcohol consumption? None [email or web address] Information not available 12/25/2022 Mental Status None [...] ICD10 Code Diagnosis IMO Codes Diagnosis Note [id number] Iqra Casey, SECURITY AMBASS[employer]OR [address] [place] [address] 12/08/2021 08:30:31 12/08/2021 14:42:07 Lumbosacral spondylosis with radiculopathy 045231520 M47.27 Long-term current use of opiate analgesic drug [id number] 03014 Z79.891 Medication compliance : According to patient medication s are working well. Patient denies any side effects to medication s prescribed . There are no signs of tolerance. Pattern of medication use is as previously prescribed . The patient states he/she is taking his/her medication s as prescribed . He/She still has symptoms on a continuous basis, but they are alleviated somewhat by current meds. He/She understand s that his/her symptoms will not be completely eliminated by medication s. The patient has been instructed as to the type of medication prescribed along with directions for use. Potential side effects have been discussed, along with risks and benefits of taking this medication . He/She was instructed what to do if he/she experience s side effects, including when to discontinu e the medication and was advised to call this office in this event. Prescripti on refills: Medication s refilled for 1 months with no changes. Medication changes are as follows none Opioid dependence 994094 00 F11.20 Scott and previous UDS appropriat e Idiopathic osteoarthritis 348672769 M17.0 Spasm of back muscles 20 8999697 M62.830 stable [id number] Iqra Casey APRN 280 [facility] 280 [place] [address] 01/05/2022 10:36:49 02/20/2022 09:48:18 Long-term current use of opiate analgesic drug 4884252123 94015 Z79.891 Medication compliance : According to patient medication s are working well. Patient denies any side effects to medication s prescribed . There are no signs of tolerance. Pattern of medication use is as previously prescribed . The patient states he/she is taking his/her medication s as prescribed . He/She still has symptoms on a continuous basis, but they are alleviated somewhat by current meds. He/She understand s that his/her symptoms will not be completely eliminated by medication s. The patient has been instructed as to the type of medication prescribed along with directions for use. Potential side effects have been discussed, along with risks and benefits of taking this medication . He/She was instructed what to do if he/she experience s side effects, including when to discontinu e the medication and was advised to call this office in this event. Prescripti on refills: Medication s refilled for 1 months with no changes. Medication changes are as follows none Opioid dependence 435964 00 F11.20 Patient is noted to be low risk for opioids due to: previous compliance and risk tools UDS reviewed on and is Appropriat e all previous SCOTT reviewed and is Appropriat e Lumbosacra l radiculopathy 9011597 M54.17 Spasm of back muscles 20 1886001 M62.830 stable, controlled , no new orders [id number] Iqra Casey, SECURITY AMBASS[employer]OR [address] [place] [address] 01/30/2022 08:20:37 02/01/2022 12:40:31 Lumbosacral spondylosis with radiculopathy 520539563 M47.27 patient says injections don't help much so declines, has declined PT as well and referral to [facility] at this time Pain in left knee 670151 7829 77999 M25.562 stable, no new orders Long-term current use of opiate analgesic drug 3079115488 26460 Z79.891 Medication compliance : According to patient medication s are working well. Patient denies any side effects to medication s prescribed . There are no signs of tolerance. Pattern of medication use is as previously prescribed . The patient states he/she is taking his/her medication s as prescribed . He/She still has symptoms on a continuous basis, but they are alleviated somewhat by current meds. He/She understand s that his/her symptoms will not be completely eliminated by medication s. The patient has been instructed as to the type of medication prescribed along with directions for use. Potential side effects have been discussed, along with risks and benefits of taking this medication . He/She was instructed what to do if he/she experience s side effects, including when to discontinu e the medication and was advised to call this office in this event. Prescripti on refills: Medication s refilled for 1 months with no changes. Medication changes are as follows none Opioid dependence 970906 00 F11.20 Patient is noted to be low risk for opioids due to: previous compliance and risk toolsUDS reviewed on and is Appropriat e December 2021KASPER reviewed and is Appropriat e [id number] Iqra Casey, SECURITY AMBASSADOR 280 [facility] 280 [place] [address] 03/12/2022 08:39:14 03/15/2022 12:24:24 Long-term current use of opiate analgesic drug 4120500484 31979 Z79.891 Medication compliance : According to patient medication s are working well. Patient denies any side effects to medication s prescribed . There are no signs of tolerance. Pattern of medication use is as previously prescribed . The patient states he/she is taking his/her medication s as prescribed . He/She still has symptoms on a continuous basis, but they are alleviated somewhat by current meds. He/She understand s that his/her symptoms will not be completely eliminated by medication s. The patient has been instructed as to the type of medication prescribed along with directions for use. Potential side effects have been discussed, along with risks and benefits of taking this medication . He/She was instructed what to do if he/she experience s side effects, including when to discontinu e the medication and was advised to call this office in this event. Prescripti on refills: Medication s refilled for 1 months with no changes. Medication changes are as follows none Opioid dependence 118036 00 F11.20 Patient is noted to be low risk for opioids due to: previous compliance and risk toolsUDS reviewed on and is Appropriat e December 2021KASPER reviewed and is Appropriat e Lumbosacra l spondylosis with radiculopathy 529957765 M47.27 patient says injections don't help much so declines, has declined PT as well and referral to surgery at this time [id number] Iqra Casey, SECURITY AMBASSADOR 280 [facility] 280 [place] [address] 04/09/2022 09:36:54 04/10/2022 16:44:19 Long-term current use of opiate analgesic drug 6188857580 17283 Z79.891 Medication compliance : According to patient medication s are working well. Patient denies any side effects to medication s prescribed . There are no signs of tolerance. Pattern of medication use is as previously prescribed . The patient states he/she is taking his/her medication s as prescribed . He/She still has symptoms on a continuous basis, but they are alleviated somewhat by current meds. He/She understand s that his/her symptoms will not be completely eliminated by medication s. The patient has been instructed as to the type of medication prescribed along with directions for use. Potential side effects have been discussed, along with risks and benefits of taking this medication . He/She was instructed what to do if he/she experience s side effects, including when to discontinu e the medication and was advised to call this office in this event. Prescripti on refills: Medication s refilled for 1 months with no changes. 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 uncontroll ed but stable with current meds, declined offered interventi ons, offered knee injections , he says he may do this later on Lumbosacra l spondylosis with radiculopathy 324107837 M47.27 patient still says injections don't help much so declines, has declined PT as well and referral to surgery at this time, offered SCS and he also has declined at this time [id number] Laurie Roldan, SECURITY AMBASSADOR [address] [place] [address] 05/09/2022 09:08:36 05/23/2022 15:12:04 Degeneration of lumbosacral intervertebral disc 59376713 M51.37 Idiopathic osteoarthritis 905394899 M17.0 Long-term current use of opiate analgesic drug 8620136257 14701 Z79.891 Lumbosacra l radiculopathy 5455549 M54.17 Lumbosacra l spondylosis with radiculopathy 844604294 M47.27 Lumbosacra l spondylosis without myelopathy 29232768 M47.817 Spondylosi s without myelopathy 42009231 M47.047 [id number] Rosalina Iverson DNP SEC[employer] [address] [place] [address] 06/06/2022 12:54:50 06/13/2022 09:40:55 Lumbosacral spondylosis without myelopathy 19058329 M47.498 [id number] Rosalina Iverson DNP [employer] [address] [place] [address] 07/04/2022 15:07:44 07/09/2022 17:29:22 Lumbosacral spondylosis with radiculopathy 204729114 M47.27 Lumbosacra l radiculopathy 0135954 M54.17 Idiopathic osteoarthritis 598288130 M17.0 Spasm of back muscles 20 8111384 M62.830 Long-term current use of opiate analgesic drug 1168799643 40385 Z79.891 Lumbosacra l spondylosis without myelopathy 26210384 M47.817 Global Risk Assessment Score:High Risk.High Risk Assessment [...] drug abuse/dive rsion, ALC abuse/phys ical abuse Lab work reviewed:U DS of reviewed and is Daniel CHAVEZ (prescript ion drug monitoring report):As of 06/27/2022 reviewed and is appropriat e Last fill [id number] Rosalina Iverson DNP [employer] [address] [place] [address] 08/01/2022 14:09:20 08/07/2022 15:44:05 Lumbosacral spondylosis with radiculopathy 448958714 M47.27 Lumbosacra l radiculopathy 4324909 M54.17 Idiopathic osteoarthritis 005257156 M17.0 Spasm of back muscles 20 6321588 M62.830 Lumbosacra l spondylosis without myelopathy 11095862 M47.817 Global Risk Assessment Score:High Risk.High Risk Assessment [...] drug abuse/dive rsion, ALC abuse/phys ical abuse L SCOTT (prescript ion drug monitoring report):As of 07/28/2022 reviewed and is appropriat e Last fill 07/10/2022 [id number] Rosalina Iverson DNP SEC[employer]ITY AMB[employer]OR 280 [facility] [address] [place] [phone] 08/30/2022 09:16:53 09/13/2022 16:17:54 Idiopathic osteoarthritis 326080874 M17.0 Lumbosacra l radiculopathy 7200337 M54.17 Spasm of back muscles 20 2581776 M62.830 Lumbosacra l spondylosis without myelopathy 81774483 M47.817 Global Risk Assessment Score:High Risk.High Risk Assessment [...] drug abuse/dive rsion, ALC abuse/phys ical abuse L SCOTT (prescript ion drug monitoring report):As of 07/28/2022 reviewed and is appropriat e Last fill 08/09/2022 [id number] Rosalina Iverson DNP SECURITY AMB[employer]OR [address] [facility] [address] [place] [phone] 10/02/2022 09:40:29 10/09/2022 08:51:47 Idiopathic osteoarthritis 487598064 M17.0 Lumbosacra l radiculopathy 9276123 M54.17 Spasm of back muscles 20 4572817 M62.830 Lumbosacra l spondylosis without myelopathy 11905822 M47.817 Global Risk Assessment Score:High Risk.High Risk Assessment [...] drug abuse/dive rsion, ALC abuse/phys ical abuse SCOTT (prescript ion drug monitoring report):As of 10/01/2022 reviewed and is appropriat e Last fill 09/09/2022 for Hydrocodon e & 09/02/22 for Gabapentin . [id number] Rosalian Iverson DNP SECURITY AMB[employer]OR [facility] [place] [phone] 10/31/2022 08:44:29 11/01/2022 13:24:31 Long-term current use of opiate analgesic drug 5937650327 26793 Z79.891 Degenerati on of lumbosacral intervertebral disc 44731317 M51.37 Lumbosacra l radiculopathy 8583869 M54.17 Lumbosacra l spondylosis without myelopathy 57237185 M47.817 Global Risk Assessment Score:High Risk.High Risk Assessment [...] drug abuse/dive rsion, ALC abuse/phys ical abuse SCOTT (prescript ion drug monitoring report):As of 10/29/2022 reviewed and is appropriat e Last fill 10/10/2022 [id number] Rosalina Iverson DNP [employer] [address] [place] [phone] 11/27/2022 08:13:00 11/27/2022 16:39:44 Lumbosacral radiculopathy 3466747 M54.17 Spasm of back muscles 20 8729618 M62.830 Idiopathic osteoarthritis 387980918 M17.0 Lumbosacra l spondylosis without myelopathy 34965703 M47.817 Global Risk Assessment Score:High Risk.High Risk Assessment [...] drug abuse/dive rsion, ALC abuse/phys ical abuse SCOTT (prescript ion drug monitoring report):As of 11/22/2022 reviewed and is appropriat e Last fill 11/01/2022 [id number] Rosalina Iverson DNP SECURITY AMB[employer]OR [address] [address] 12/25/2022 07:58:04 12/27/2022 13:42:56 Degeneration of lumbosacral intervertebral disc 18457194 M51.37 Lumbosacra l radiculopathy 3665006 M54.17 Global Risk Assessment Score:High Risk. High Risk Assessment : Multiple Opioid Medication Medication [...] head and fibromyalg ia) Multiple Physicians treating patient's conditions History of early refills History of [...] ORT: . Lab work reviewed:U DS of 11/01/2022 reviewed and is appropriat sanjana CHAVEZ (prescript ion drug monitoring report):As of 12/25/2022 reviewed and is appropriat e Last fill 12/09/2022 Inappropri ate due to: . [id number] Rosalina Iverson DNP SECURITY AMB[employer]OR [address] [facility] [address] [place] [address] 01/24/2023 07:49:55 01/24/2023 15:15:54 Lumbosacral spondylosis with radiculopathy 007272045 M47.27 Spasm of back muscles 20 9232412 M62.830 Idiopathic osteoarthritis 291652729 M17.0 Lumbosacra l radiculopathy 7261903 M54.17 Global Risk Assessment Score:High Risk.High Risk Assessment [...] head and fibromyalg ia) Multiple Physicians treating patient's conditions History of early refills History of [...] ORT: . Lab work reviewed:U DS of 12/09/2022 reviewed and is appropriat e. SCOTT (prescript ion drug monitoring report):As of 01/24/2023 reviewed and is appropriat e Last fill 01/08/2023 Inappropri ate due to: . [id number] Rosalina Iverson DNP SECUR[employer] AMB[employer] [address] [facility] [address] [place] [address] 02/28/2023 08:11:00 03/07/2023 08:04:41 Lumbosacral spondylosis with radiculopathy 509443564 M47.27 Spasm of back muscles 20 0808321 M62.830 Idiopathic osteoarthritis 360766037 M17.0 Lumbosacra l radiculopathy 6685085 M54.17 Global Risk Assessment Score:High Risk.High Risk Assessment [...] head and fibromyalg ia) Multiple Physicians treating patient's conditions History of early refills History of [...] ORT: . Lab work reviewed:U DS of 12/25/2022 reviewed and is appropriat e. SCOTT (prescript ion drug monitoring report):As of 02/28/2023 reviewed and is appropriat e Last fill 02/07/2023 Inappropri ate due to: . Long-term current use of opiate analgesic drug 7544652553 79936 Z79.891 Diagnostic /Lab: Order Presumptiv e UDT (necessary for rapid results) with Definitive confirmati on for chronic pain patient, to define treatment and reinforce therapeuti c compliance ; the following apply:[Pre sumptive UDT includes: (Amp, Adriana, Osmel, Bup, THC, ANDREWS, ETOH, Meth, Opi, Oxy )]*-Patien t is receiving controlled medication s.*-Presum ptive UDT to identify presence of illicit/no n-prescrib ed substance( s) - Confirm positive for ongoing safe prescribin g of controlled substances .*-Presump tive UDT to identify presence of licit/pres cribed substance( s)-Confirm unexpected results, identify specific drug(s) in large class and ensure appropriat e use of prescribed medication (s). _*-Definit darlyn UDT inadequate ly detected by Presumptiv e UDT (gabapenti n, pregabalin , tramadol, fentanyl, tapentadol and carisoprod ol). Pre-surgery testing 1104 11560 Z01.835 [id number] Rosalina Iverson DNP SEC[employer] [address] [place] [address] [place] [address] 04/01/2023 08:55:18 04/02/2023 09:57:02 Lumbosacral spondylosis with radiculopathy 792112549 M47.27 Spasm of back muscles 20 1836181 M62.830 Idiopathic osteoarthritis 757232446 M17.0 Long-term current use of opiate analgesic drug 6753465749 05162 Z79.891 Diagnostic /Lab: Order Presumptiv e UDT (necessary for rapid results) with Definitive confirmati on for chronic pain patient, to define treatment and reinforce therapeuti c compliance ; the following apply:[Pre sumptive UDT includes: (Amp, Adriana, Osmel, Bup, THC, ANDREWS, ETOH, Meth, Opi, Oxy )]*-Patien t is receiving controlled medication s.*-Presum ptive UDT to identify presence of illicit/no n-prescrib ed substance( s) - Confirm positive for ongoing safe prescribin g of controlled substances .*-Presump tive UDT to identify presence of licit/pres cribed substance( s)-Confirm unexpected results, identify specific drug(s) in large class and ensure appropriat e use of prescribed medication (s). _*-Definit darlyn UDT inadequate ly detected by Presumptiv e UDT (gabapenti n, pregabalin , tramadol, fentanyl, tapentadol and carisoprod ol). Lumbosacra l radiculopathy 4391192 M54.17 Global Risk Assessment Score:High Risk.High Risk Assessment [...] head and fibromyalg ia) Multiple Physicians treating patient's conditions History of early refills History of [...] ORT: . Lab work reviewed:U DS of 12/25/2022 reviewed and is appropriat sanjana CHAVEZ (prescript ion drug monitoring report):As of 04/01/2023 reviewed and is appropriat e Last fill 02/07/2023 Inappropri ate due to: . [id number] Karthik Lazo MD [address] [address] 05/02/2023 07:48:47 05/02/2023 14:25:11 Lumbosacral spondylosis with radiculopathy 290583087 M47.27 Spasm of back muscles 20 5354072 M62.830 Idiopathic osteoarthritis 587532537 M17.0 Long-term current use of opiate analgesic drug 5388558022 26189 Z79.891 Lumbosacra l radiculopathy 7668561 M54.17 Lumbosacra l spondylosis without myelopathy 99099307 M47.511 [id number] Rosalina Iverson DNP SEC[employer] [facility] [address] [address] 07/03/2023 08:39:58 07/04/2023 10:47:15 Long-term current use of opiate analgesic drug 4219664815 55672 Z79.891 Diagnostic /Lab: Order Presumptiv e UDT (necessary for rapid results) with Definitive confirmati on for chronic pain patient, to define treatment and reinforce therapeuti c compliance ; the following apply:[Pre sumptive UDT includes: (Amp, Adriana, Osmel, Bup, THC, ANDREWS, ETOH, Meth, Opi, Oxy )]*-Patien t is receiving controlled medication s.*-Presum ptive UDT to identify presence of illicit/no n-prescrib ed substance( s) - Confirm positive for ongoing safe prescribin g of controlled substances .*-Presump tive UDT to identify presence of licit/pres cribed substance( s)-Confirm unexpected results, identify specific drug(s) in large class and ensure appropriat e use of prescribed medication (s). _*-Definit darlyn UDT inadequate ly detected by Presumptiv e UDT (gabapenti n, pregabalin , tramadol, fentanyl, tapentadol and carisoprod ol). Degenerati on of lumbosacral intervertebral disc 06764192 M51.37 Idiopathic osteoarthritis 948372308 M17.0 Lumbosacra l radiculopathy 4335469 M54.17 Global Risk Assessment Score:High Risk.High Risk Assessment [...] head and fibromyalg ia) Multiple Physicians treating patient's conditions History of early refills History of [...] ORT: . Lab work reviewed:U DS of 04/01/2023 reviewed and is appropriat eDainel CHAVEZ (prescript ion drug monitoring report):As of 04/01/2023 reviewed and is appropriat e Last fill 02/07/2023 Inappropri ate due to: . [id number] Rosalina Iverson DNP SEC[employer] [address] [address] 09/03/2023 08:36:40 09/03/2023 09:18:43 Long-term current use of opiate analgesic drug 3124750722 48363 Z79.891 Diagnostic /Lab: Order Presumptiv e UDT (necessary for rapid results) with Definitive confirmati on for chronic pain patient, to define treatment and reinforce therapeuti c compliance ; the following apply:[Pre sumptive UDT includes: (Amp, Adriana, Osmel, Bup, THC, ANDREWS, ETOH, Meth, Opi, Oxy )]*-Patien t is receiving controlled medication s.*-Presum ptive UDT to identify presence of illicit/no n-prescrib ed substance( s) - Confirm positive for ongoing safe prescribin g of controlled substances .*-Presump tive UDT to identify presence of licit/pres cribed substance( s)-Confirm unexpected results, identify specific drug(s) in large class and ensure appropriat e use of prescribed medication (s). _*-Definit darlyn UDT inadequate ly detected by Presumptiv e UDT (gabapenti n, pregabalin , tramadol, fentanyl, tapentadol and carisoprod ol). Degenerati on of lumbosacral intervertebral disc 66949924 M51.37 Idiopathic osteoarthritis 662365393 M17.0 Lumbosacra l radiculopathy 8701774 M54.17 Global Risk Assessment Score:High Risk.High Risk Assessment [...] head and fibromyalg ia) Multiple Physicians treating patient's conditions History of early refills History of [...] ORT: . Lab work reviewed:U DS of 07/04/2023 reviewed and is appropriat e. SCOTT (prescript ion drug monitoring report):As of 04/01/2023 reviewed and is appropriat e Last fill 02/07/2023 Inappropri ate due to: . Lumbosacra l spondylosis with radiculopathy 501526310 M47.27 Spasm of back muscles 20 7930145 M62.830 Lumbosacra l spondylosis without myelopathy 95716461 M47.817 Global Risk Assessment Score:High Risk.High Risk Assessment [...] drug abuse/dive rsion, ALC abuse/phys ical abuse SCOTT (prescript ion drug monitoring report):As of 11/22/2022 reviewed and is appropriat e Last fill 11/01/2022 [id number] Rosalina Iverson DNP [employer] [address] [place] [address] 11/04/2023 09:01:07 11/04/2023 09:52:28 Degeneration of lumbosacral intervertebral disc 46833997 M51.37 Idiopathic osteoarthritis 766493143 M17.0 Lumbosacra l radiculopathy 1101188 M54.17 Global Risk Assessment Score:High Risk.High Risk Assessment [...] head and fibromyalg ia) Multiple Physicians treating patient's conditions History of early refills History of [...] ORT: . Lab work reviewed:U DS of 07/04/2023 reviewed and is appropriat eDaniel CHAVEZ (prescript ion drug monitoring report):As of 11/07/2023 reviewed and is appropriat e Last fill 10/08/2023 Inappropri ate due to: . Long-term current use of opiate analgesic drug 1954028994 54464 Z79.891 Diagnostic /Lab: Order Presumptiv e UDT (necessary for rapid results) with Definitive confirmati on for chronic pain patient, to define treatment and reinforce therapeuti c compliance ; the following apply:[Pre sumptive UDT includes: (Amp, Adriana, Osmel, Bup, THC, ANDREWS, ETOH, Meth, Opi, Oxy )]*-Patien t is receiving controlled medication s.*-Presum ptive UDT to identify presence of illicit/no n-prescrib ed substance( s) - Confirm positive for ongoing safe prescribin g of controlled substances .*-Presump tive UDT to identify presence of licit/pres cribed substance( s)-Confirm unexpected results, identify specific drug(s) in large class and ensure appropriat e use of prescribed medication (s). _*-Definit darlyn UDT inadequate ly detected by Presumptiv e UDT (gabapenti n, pregabalin , tramadol, fentanyl, tapentadol and carisoprod ol). [id number] Karthik Lazo MD [facility] [address] [address] 01/01/2024 08:44:46 01/14/2024 08:24:26 Lumbosacral radiculopathy 8529621 M54.17 Lumbar spondylosis 11600 0009 M47.228 [id number] Rosalina Iverson DNP [employer] [address] [address] 03/03/2024 09:23:52 03/03/2024 10:23:04 Degeneration of lumbosacral intervertebral disc 53194804 M51.37 Lumbar spondylosis 38812 0009 M47.896 Global Risk Assessment Score:High Risk.High [...] ORT: . Lab work reviewed:U DS of 11/04/2023 reviewed and is appropriat sanjana CHAVEZ (prescript ion drug monitoring report):As of 03/03/2024 reviewed and is appropriat e Last fill 02/08/2024 Inappropri ate due to: . Lumbosacra l radiculopathy 9696684 M54.17 [id number] Rosalina Iverson DNP [employer] [address] [address] 04/28/2024 09:31:30 04/28/2024 10:43:41 Long-term current use of opiate analgesic drug [id number] 81584 Z79.891 Diagnostic /Lab: Order Presumptiv e UDT (necessary for rapid results) with Definitive confirmati on for chronic pain patient, to define treatment and reinforce therapeuti c compliance ; the following apply:[Pre sumptive UDT includes: (Amp, Adriana, Osmel, Bup, THC, ANDREWS, ETOH, Meth, Opi, Oxy )]*-Patien t is receiving controlled medication s.*-Presum ptive UDT to identify presence of illicit/no n-prescrib ed substance( s) - Confirm positive for ongoing safe prescribin g of controlled substances .*-Presump tive UDT to identify presence of licit/pres cribed substance( s)-Confirm unexpected results, identify specific drug(s) in large class and ensure appropriat e use of prescribed medication (s). _*-Definit darlyn UDT inadequate ly detected by Presumptiv e UDT (gabapenti n, pregabalin , tramadol, fentanyl, tapentadol and carisoprod ol). Lumbar spondylosis 37473 0009 M47.896 Global Risk Assessment Score:High Risk.High [...] ORT: . Lab work reviewed:U DS of 11/04/2023 reviewed and is appropriat e. SCOTT (prescript ion drug monitoring report):As of 04/28/2024 reviewed and is appropriat e Last fill 04/08/2024 Inappropri ate due to: . Lumbosacra l radiculopathy 8477029 M54.17 [id number] Grace Mohan, [employer] [address] [address] 08/25/2024 08:19:14 08/25/2024 08:47:43 Lumbar spondylosis 271321672 M47.896 Lumbosacra l radiculopathy 6481291 M54.17 [id number] Rosalina Iverson DNP [employer] [address] [address] 10/22/2024 08:36:22 11/02/2024 12:23:46 Long-term current use of opiate analgesic drug [id number] 37248 Z79.891 Diagnostic /Lab: Order Presumptiv e UDT (necessary for rapid results) with Definitive confirmati on for chronic pain patient, to define treatment and reinforce therapeuti c compliance ; the following apply:[Pre sumptive UDT includes: (Amp, Adriana, Osmel, Bup, THC, ANDREWS, ETOH, Meth, Opi, Oxy )]*-Patien t is receiving controlled medication s.*-Presum ptive UDT to identify presence of illicit/no n-prescrib ed substance( s) - Confirm positive for ongoing safe prescribin g of controlled substances .*-Presump tive UDT to identify presence of licit/pres cribed substance( s)-Confirm unexpected results, identify specific drug(s) in large class and ensure appropriat e use of prescribed medication (s). _*-Definit darlyn UDT inadequate ly detected by Presumptiv e UDT (gabapenti n, pregabalin , tramadol, fentanyl, tapentadol and carisoprod ol).HP1 (CBC/Renal /Hepatic/G GT) CBC - ordered to monitor the effects of prescribed medication s. Renal/Hepa tic/GGT - ordered to monitor toxicity of renal hepatic function due to medication . Idiopathic osteoarthritis 357005634 M17.0 Lumbar spondylosis 69344 0009 M47.896 Global Risk Assessment Score:High Risk.High [...] ORT: . Lab work reviewed:U DS of 04/28/2024 reviewed and is appropriat eDaniel CHAVEZ (prescript ion drug monitoring report):As of 10/22/2024 reviewed and is appropriat e Last fill 09/24/2024 Inappropri ate due to: . Lumbosacra l radiculopathy 5718671 M54.17 34352 [id number] Rosalina Iverson DNP [employer] [address] [facility] [address] [place] [address] 12/15/2024 07:47:31 12/15/2024 08:36:37 Chronic pain 43374621 G89.29 Idiopathic osteoarthritis 310259261 M17.0 Lumbar spondylosis 73178 0009 M47.896 Global Risk Assessment Score:High Risk.High [...] ORT: . Lab work reviewed:U DS of 10/22/2024 reviewed and is appropriat eDaniel CHAVEZ (prescript ion drug monitoring report):As of 12/15/2024 reviewed and is appropriat e Last fill 11/25/2024 Inappropri ate due to: . Lumbosacra l spondylosis with radiculopathy 411446989 M47.27 Lumbosacra l spondylosis without myelopathy 47495916 M47.817 Lumbosacra l radiculopathy 1273215 M54.17 [id number] Karthik Lazo MD [facility] [place] [address] 02/10/2025 08:04:21 02/18/2025 12:51:53 Lumbosacral spondylosis with radiculopathy 384047646 M47.27 Lumbar spondylosis 73651 0009 M47.896 Lumbosacra l radiculopathy 8893777 M54.17 Long-term current use of opiate analgesic drug [id number] 13194 Z79.891 Diagnostic /Lab: Order Presumptiv e UDT [...] , tramadol, fentanyl, tapentadol and carisoprod ol). 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 Lumbosacra l radiculopathy 1573456 M54.17 [id number] Stone Barbosa MD [facility] [place] [address] 06/16/2025 09:35:49 06/23/2025 11:28:26 Long-term current use of opiate analgesic drug [id number] 83632 Z79.891 Diagnostic /Lab: Order Presumptiv e UDT [...] carisoprod ol). Lumbosacra l spondylosis with radiculopathy 236154587 M47.27 Lumbar spondylosis 13893 0009 M47.896 Lumbosacra l radiculopathy 4039231 M54.17 Malignant neoplastic disease 065298765 C80.1 61814 Pain in left knee 781502 6436 50861 M25.562 Pain in right knee 52766 42932 84829 M25.561 Health Concerns Section Related Observation LastModified by Organization Detai ls LastModified Time None Recorded Concern Status LastModified by Organization Details LastModified Time None Recorded Advance Directives Directive None Recorded Payers Insurance Date Sequence Insurance Name Policy Number Policy H[place] Covered Member ID Hancock Member ID Guarantor Name 06/13/2025 1 [place] Noe Ilya [id number] Noe Ilya 06/16/2025 2 [employer] [place] (MEDICA[place] HMO[place] [id number] Noe Ilya [id number] Noe Ilya 05/22/2025 2 UNSPECIFIED REMIT PAYOR Noe Caraballo Notes Date Note Type Note Provider Name and Address Organization Details Recorded Time 10/23/19 25 text/htm l ROS as noted in the HPI Patient RTC for the management of his chronic lumbar pain with radiculopathy.Patient states his lumbar pain has been worsening over time Quality: generalized pain, achingImproves somewhat with the pain medsAggravating factors: any activity, standing too long Patient is here for med refills today, reports compliance, states use of medication gives some relief and allows more physical function. Patient reports tolerating the medication well and denies any adverse effects including toxic effects, respiratory sedation, driving problems, or GI problems. Rosalina Iverson, ROSALINE [employer] [address] [facility], [place], [address], [facility] 10/26/2024 07:26:14 12/16/19 25 text/htm l ROS as noted in the HPI Patient RTC for the management of his chronic lumbar pain with radiculopathy.Patient states his chronic lumbar pain has been worsening over time.Patient reports due to his lumbar pain he has difficulty standing up. Quality: aching, sore, throbbing, tinglingImproves with the pain meds, sitting up to restAggravating factors: walking, standing up The patient has been fairly well controlled [...] not to mix with alcohol, or self-escalate it Rosalina Iverson, ROSALINE [employer] [address] [facility], [place], [address], [facility] 12/21/2024 14:50:26 02/11/20 25 text/htm l ROS as noted in the HPI The patient came today and he mentioned that he has more of aggravation of his pain related to his cancer, chemo, and radiotherapy. He wishes if we can increase his medicine to help him with his pain. He also mentioned that he had bleeding related to spleen rupture and he was admitted to [facility] for a month and had 12 units of blood. He end up removing his spleen. We also discussed in the future we might consider morphine pump for him. This is 73 years old male with the chief complaint is a chronic lower back pain for several years duration , came today for follow-up. The patient had good response to combination of medication s and injective therapies during his follow up in our clinic. However, we stopped interventional treatments since the patient was diagnosed with large spleen and myofibrosis. He has been treated in [facility] cancer center at the [facility]. They treated him with chemotherapy pills and they are suggesting radiotherapy for him. He is currently treated in our clinic with combination of medication, he is on hydrocodone 7.5/325 four times a day and gabapentin 800 mg four times a day. He denied any major side effect to his medication's, which include toxic effects sedation, driving problem or G.I. problem.we also mentioned that we might add some compound cream to his medication to help him for his back pain. We spent time to discuss with him pros and cons and risk benefit to continue controlled medication for his chronic pain. Karthik Lazo MD [address] [facility] , [place], [address], [place] [facility] 02/10/2025 12:57:15 04/15/20 25 text/htm l ROS as noted in the HPI Patient [...] sedation, driving problems, or GI problems. Rosalina Iverson, ROSALINE [employer] [address] [facility], [place], [address], [facility] 04/19/2025 16:13:40 06/16/20 25 text/htm l 75 y/o Male [...] POC at this time Marco Barbosa MD [address] [facility], [place], [address], [facility] [[email or web address]] [facility] 06/16/2025 11:11:01
[2025-06-26 10:41] LABS: Albumin Level 3.3 g/dl (3.5-5.0); Chloride 81 mmol/L (98-107); Potassium 4.5 mmoL/L (3.5-5.1); Sodium 126 mmol/L (136-145)
[2025-06-26 10:43] LABS: Creatinine Clearance Estimated 20 mL/min (50-200); Creatinine,Serum 3.50 mg/dl (0.66-1.25); Estimated Glomerular Filt Rate 17 ml/min (>60); GFR (African American) 21 ML/MIN (>60)
[2025-06-26 10:44] LABS: Alanine Aminotransferase 21 U/L (12-78); Alkaline Phosphatase 456 U/L (38-126); Aspartate Amino Transferase 75 U/L (17-59); Bilirubin,Total 2.4 mg/dl (0.2-1.3); Calcium 8.4 mg/dl (8.4-10.2); Carbon Dioxide 33 mmol/L (22.0-30.0); Glucose 126 mg/dl (74-100); Lipase 288 U/L (23-300); Total Protein,Serum 6.1 g/dl (6.3-8.2)
[2025-06-26 10:47] LABS: White Blood Count 113.0 K/mm3 (4.8-10.8)
--- NOTE | 2025-06-26 10:48 | PC.NURSE ---
Called [facility] per DR Padilla for pt transfer for possible ruptured bladder
[2025-06-26 10:49] LABS: Albumin/Globulin Ratio 1.2 (1.1-1.8); Anion Gap 16.5 mEq/L (5-15); Blood Urea Nitrogen 99 mg/dl (9-20); Globulin 2.8 g/dL (1.3-3.2)
--- NOTE | 2025-06-26 10:52 | PC.NURSE ---
[facility] will call back
[2025-06-26 10:53] LABS: Activated Partial Thrombo Time 39.2 seconds (22.8-30.6); Fibrinogen 381 mg/dL (229.9-363.5); INR 1.26 (0.9-1.1); Prothrombin Time 13.7 seconds (10.1-12.5)
[2025-06-26 10:56] LABS: NT Pro Brain Natriuretic Pep. 6560 pg/mL (0-125)
[2025-06-26] MEDS: HYDROMORPHONE 2MG/ML SYRINGE 1 MG IV (10:56)
[2025-06-26] MEDS: PIPERACILLIN/TAZO 3.375 GM in 0.9 % SODIUM CHLORIDE 50 ML IV (10:57)
[2025-06-26 10:59] LABS: Troponin I 0.12 ng/ml (0.00-0.034)
[2025-06-26 11:07] LABS: D-Dimer 1.27 ug/mL (0.0-0.5)
[2025-06-26] MEDS: VANCOMYCIN/WATER FOR INJ (PEG) 1.5 GM/300 ML PIGGYBACK IV (11:29)
[2025-06-26 11:36] LABS: RBC Morphology Normal; Total Cells Counted 100
--- NOTE | 2025-06-26 13:55 | PC.NURSE ---
Emergent blood transfusion vitals en route to ED with [facility] 1148: BP 66/41, MAP 49, HR 80, O2 95, RR 14 1150: BP 80/48, MAP 58, HR 80, O2 95, RR 16 1155: BP 89/51, MAP 63, HR 80, O2 97, RR 14 1200: BP 72/43, MAP 53, HR 80, O2 95, RR 14 1210: BP 81/47, MAP 58, HR 80, O2 96, RR 16 1215: BP 74/48, MAP 57, HR 80, O2 96, RR 16 1220: BP 81/49, MAP 60, HR 78, O2 97, RR 14 1225: BP 83/50, MAP 61, HR 80, O2 94, RR 17 1230: BP 93/59, MAP 70, HR 76, O2 96, RR 13 Arrived at ED at 1228. 3 units of O negative given
== END 2025-06-26 11:45 | disposition short-term general hospital (02) ==
PROVIDERS: Emergency Provider Emergency Medicine
DX: K66.1 Hemoperitoneum (principal); D62 Acute posthemorrhagic anemia; R58 Hemorrhage, not elsewhere classified; R93.5 Abnormal findings on diagnostic imaging of other abdominal regions, including retroperitoneum; N13.9 Obstructive and reflux uropathy, unspecified; R33.9 Retention of urine, unspecified; R18.8 Other ascites; R14.0 Abdominal distension (gaseous); Z85.830 Personal history of malignant neoplasm of bone
CPT/HCPCS: 36430; 71275; 74174; 80053; 82803; 83690; 83880; 84484; 85007; 85025; 85378; 85384; 85610; 85730; 86850; 87040; 96365; 96366; 96375; 99285; 99291; J1171; J2543; J3010; J3375; P9016; Q9967